=== PATIENT | male | born 1955 ===

== ENCOUNTER 2017-04-15 03:42 | Inpatient (IN) ==
--- NOTE | 2017-04-15 05:21 | Internal Med History&Physical ---
Date of Encounter: 04/15/17 Time of Encounter: 05:21 Assessment and Plan (1) NSTEMI (non-ST elevated myocardial infarction) Current visit: Yes Status: Acute Cardiology consulted and called Aspirin 324 given Brilinta 180 mg loaded On Heparin drip Cp resolved now after 2 SL NG and nitro paste NPO Continue trending Troponins Initial troponin 0.44 with normal renal function and no CHF Code(s): I21.4 - Non-ST elevation (NSTEMI) myocardial infarction (2) Diabetes mellitus Current visit: Yes Status: Acute Hold oral anti-hyperglycemics While NPO AccuChecks q6 hrs and SSI Humalog (low scale) Check A1c Qualifiers: Diabetes mellitus type: type 2 Diabetes mellitus complication status: with unspecified complications Diabetes mellitus alf insulin use: without termite exterminator use Qualified Code(s): E11.8 - Type 2 diabetes mellitus with unspecified complications (3) Essential (primary) hypertension Current visit: No Status: Chronic Continue Norvasc and Metoprolol Add PRN Hydralazine Code(s): I10 - Essential (primary) hypertension (4) Obesity Current visit: No Status: Chronic Weight loss diet after d/c Qualifiers: Obesity type: due to excess calories Obesity classification: unspecified obesity classification Serious obesity comorbidity presence: with serious comorbidity Qualified Code(s): E66.09 - Other obesity due to excess calories Internal Medicine - H&P: HPI Chief complaint: NSTEMI Admitted From: Intrahospital Transfer Plans for Post Hospital Care: Home History of present illness: The patient is a 61 year old man who presented in the ED at [facility] late yesterday evening c/o 9/10 sharp chest pain radiating to his left shoulder and arm associated with sob, diaphoresis and nausea. His initial troponin was elevated (0.44) and his ECG showed nonspecific ST changes. The symptoms began while at rest and were not relieved until given 2 SL NG and nitropaste was applied. The chest pain was constant in nature. He had been experiencing cp for several day occurring with minimal exertion and resolving after several minutes. The symptoms tonight were much more intense and persisted until given NG. He had a 4v-CABG in [place] in 2012 with no subsequent events or f/u care. He takes aspirin, Lipitor and Metoprolol daily. He received 324 mg of aspirin and was started on a Heparin drip prior to transfer to [facility] His ECG upon arrival shows TWI in leads I,V4-V6 without ST elevation. His second troponin is in lab. He remains diaphoretic but his cp is resolved with nitro paste. His comorbid medical conditions include DM-2, obesity and HTN. He remains hemodynamically stable. I've spoken with Dr. Pham and she recommends loading 180 mg of Brillinta. We appreciate cardiology assistance and they will see him today. Past Med Surg Social Fam HX - Past Medical History Medical history: diabetes, hyperlipidemia, hypertension, kidney stones Psychiatric history: depression - Past Surgical History Surgical History: coronary bypass (CABG) - Social History Smoking Status: Never smoker Smokeless Tobacco Status: No Alcohol use: none Drug use: none - Family History Mother Name: Loc Age: 84 Living Status: Still Living Hx Family Cardiac Disorders: Yes (open heart sx) Hx Family Respiratory Disorders: Yes (copd) Hx Family Cancer: Yes (lung ca) Hx Family Endocrine Disorder: No Internal Medicine - H&P: Meds Aspirin 325 mg PO QMWFSU 04/15/17 [History] Atorvastatin Calcium [Lipitor] 20 mg PO DAILY 04/15/17 [History] Citalopram 20 mg PO DAILY 04/15/17 [History] GlipiZIDE 10 mg PO DAILY 04/15/17 [History] Losartan Potassium [Cozaar] 50 mg PO DAILY 04/15/17 [History] Metoprolol 50 mg PO DAILY 04/15/17 [History] Multivitamin 1 tab PO DAILY 04/15/17 [History] amLODIPine [Norvasc] 10 mg PO DAILY 04/15/17 [History] metFORMIN 500 mg PO BID 04/15/17 [History] 3 Allergy/AdvReac Type Severity Reaction Status Date / Time No Known Allergies Allergy Verified 04/15/17 05:36 All Systems PM: A 10-system review of systems was performed and is negative for pertinent findings except as documented above in the HPI. - Constitutional Constitutional: no chills, no fever(s), no falls, no night sweats, no weight gain, no weight loss - EENT Eyes: no change in vision, no irritation, no itchy eyes, no photophobia, no spots in vision Nose, mouth and throat: no bleeding gums, no dry mouth, no dysphagia, no epistaxis, no mouth lesions, no nasal congestion, no nasal discharge, no sore throat - Cardiovascular Cardiovascular ROS IM: chest pain, diaphoresis, dyspnea, no edema, no irregular heart rhythm, no lightheadedness, no palpitations, no syncope - Respiratory Respiratory: dyspnea, no cough, no hemoptysis, no stridor - Gastrointestinal Gastrointestinal: no hematemesis, no hematochezia, no melena, no nausea - Musculoskeletal Musculoskeletal ROS IM: no arthralgias, no back pain, no muscle cramps, no numbness, no stiffness - Neurological Neurological ROS: headache(s), no behavioral changes, no confusion, no dizziness - Psychiatric Psychiatric: no hallucinations, no memory loss, no suicidal ideation - Constitutional Vitals: Temp Pulse Resp BP Pulse Ox 98.0 F 70 17 146/108 95 04/15/17 04:46 04/15/17 04:46 04/15/17 04:46 04/15/17 04:46 04/15/17 05:14 General appearance: Present: mild distress, A&O X 3, pleasant, answers questions appropriately - Head Head exam: Present: atraumatic, normocephalic - Eye Eye exam: Present: PERRL, conjuntiva pink, sclera anicteric Pupils: Present: PERRL - Neck Neck exam general surgery: Present: supple, trachea midline. Absent: lymphadenopathy, tenderness, thyromegaly - Respiratory Respiratory exam: Present: CTAB. Absent: accessory muscle use, rales, rhonchi, wheezes - Cardiovascular Cardiovascular exam: Present: RRR, +S1, +S2. Absent: diastolic murmur, gallop, rubs, systolic murmur - GI/Abdominal GI/Abdominal exam: Present: normal bowel sounds, soft, no peritoneal signs. Absent: distended, tenderness - Extremities Exam Extremities exam: Present: warm, radial pulses palpable and symmetrical. Absent : calf tenderness, cyanotic, pedal edema - Neurological Exam Neurological exam: Present: CN II-XII intact, oriented X3, no focal deficits. Absent: pronater drift, facial droop, speech deficit - Psychiatric Psychiatric exam: Present: normal affect, normal mood - Skin Skin exam: Present: diaphoretic, dry, intact. Absent: rash Internal Med - H&P Results - Labs CBC & Chem 7: 04/15/17 05:43
[2017-04-15] MEDS ORDERED: *HR* Heparin 5,000 UNIT/ML VIAL IVP PRN ×2 (06:11)
[2017-04-15 06:12] LABS: INR 1.1; Prothrombin Time 12.3 Seconds (9.4-12.1)
[2017-04-15 06:16] LABS: Basophils % 0.3 %; Eosinophils # 0.1 K/mcL (0.0-0.6); Eosinophils % 1.4 %; Hematocrit 40.7 % (37.5-50.1); Hemoglobin 13.9 g/dL (12.9-16.9); Immature Granulocytes % 0.5 % (0-4); Lymphocytes # 1.4 K/mcL (0.6-4.6); Lymphocytes % 21.7 %; Mean Corpuscular HGB Conc 34.2 g/dL (31.6-35.5); Mean Corpuscular Hemoglobin 27.5 pg (28.0-33.3); Mean Corpuscular Volume 80.4 fL (83.0-100.0); Mean Platelet Volume 10.9 fL (9.4-12.4); Monocytes # 0.6 K/mcL (0.0-1.3); Monocytes % 8.6 %; Neutrophils # 4.3 K/mcL (1.6-8.9); Platelet Count 154 K/mcL (140-400); Red Blood Count 5.06 M/mcL (4.19-5.50); Red Cell Distribution Width 12.1 % (11.5-14.5); Segmented Neutrophils % 67.5 %
[2017-04-15] MEDS ORDERED: *HR* Ticagrelor 90 MG TABLET PO ONE (06:30)
[2017-04-15] MEDS: Heparin 25,000 UNIT/500 ML D5W 25,000 UNIT/500 ML BAG IVC SCH ×2 (06:30→23:06)
[2017-04-15] MEDS ORDERED: D5% in Water 1,000 ML IVC PRN (06:32)
[2017-04-15] MEDS ORDERED: *HR* Dextrose 50 % in Water (Syg) 50 ML SYRINGE IVP PRN (06:32)
[2017-04-15] MEDS ORDERED: Dextrose Gel 15 GM/37.5 ML TUBE PO PRN ×2 (06:32)
[2017-04-15 06:36] LABS: BUN/Creatinine Ratio 18 (6-26); Blood Urea Nitrogen 14 mg/dL (8-23); Calcium 8.8 mg/dL (8.6-10.3); Carbon Dioxide 23 mEq/L (23-29); Chloride 105 mEq/L (98-107); Glucose 241 mg/dL (70-105); Osmolality,Calculated 290 (280-300); Potassium 3.8 mEq/L (3.5-5.1); Sodium 136 mEq/L (136-145); eGFR For African Americans > 60 (> 60); eGFR For Non-African Americans > 60 (> 60)
[2017-04-15 06:57] LABS: Hemoglobin A1C 7.8 %
[2017-04-15 07:00] LABS: Chol/HDL Ratio 6.8 (0-4.9)
[2017-04-15] MEDS ORDERED: Acetaminophen 325 MG TABLET PO PRN (07:53)
[2017-04-15] MEDS: Multivit/Ca/Min/Fe/FA 1 TAB TABLET PO SCH (08:14)
[2017-04-15] MEDS: amLODIPine 5 MG TABLET PO SCH (08:15)
[2017-04-15] MEDS: Aspirin 81 MG TAB.CHEW PO SCH (08:15)
[2017-04-15] MEDS: Insulin LISPRO 300 UNITS/3 ML VIAL SQ SCH ×4 (09:18→21:20)
--- NOTE | 2017-04-15 09:32 | Cardiology Consult Note ---
Date of Encounter: 04/15/17 Time of Encounter: 08:15 Assessment and Plan (1) NSTEMI (non-ST elevated myocardial infarction) Current Visit: Yes Status: Acute Symptoms consistent with unstable angina/nonSTEMI. Currently stable with no recurrent angina. Continue aspirin, Brilinta, beta blockade, heparin gtt, nitrates. Will plan on cardiac catheterization tomorrow AM unless clinical status changes. Discussed cardiac catheterization and possible PCI with patient and . All risks/benefits discussed. All questions answered. Pt agreeable to proceed. (2) Coronary artery disease Current Visit: Yes Status: Acute Risk factor modification. Plan for [facility] tomorrow AM. Qualifiers: Coronary Disease-Associated Artery/Lesion type: [place] artery [place] vs. transplanted heart: [place] heart Associated angina: with other forms of angina Qualified Code(s): I25.118 - Atherosclerotic heart disease of [place] coronary artery with other forms of angina pectoris (3) S/P CABG (coronary artery bypass graft) Current Visit: Yes Status: Chronic (4) Hyperlipidemia Current Visit: Yes Status: Chronic Statin therapy. Qualifiers: Hyperlipidemia type: unspecified Qualified Code(s): E78.5 - Hyperlipidemia , unspecified (5) Essential (primary) hypertension Current Visit: Yes Status: Chronic Uncontrolled. Will titrate antihypertensives. Discussion w patient/family: The assessment and plan as outlined above was discussed with the patient and/or family members who expressed understanding and agreement. All questions were answered. Thank you for involving us in the care of your patient. Please call with any questions. History of Present Illness Consult date: 04/15/17 Consult reason: nonSTEMI Chief complaint: chest pain History of present illness: Mr. Jarvis is a 61 year old male with CAD s/p CABG x 4 2012, HTN, DM, hyperlipidemia presents as transfer from [facility] ED for evaluation of CP. For past week, pt has been having intermittent chest discomfort. Danial evening, symptoms worsened but resolved after few minutes. Yesterday, chest discomfort markedly worsened and radiated to L arm/neck/jaw. Associated with nausea, diaphoresis. No SOB. Checked BP and noted SBP in 200s. Went to local fire station and repeat BP in 200s. Was taken by EMS to [facility]. Initial troponin at [facility] 0.44. EKG reportedly with nonspecific changes- not available for my review at time of consult. Was transferred to [facility] for further evaluation/ treatment. Currently denies CP, SOB, nausea, diaphoresis. Has headache from [facility]. EKG demonstrates NSR with ST-T wave changes in anterolateral leads. Pt has known history of CABG x 4 in 2013 at [facility]. No records available for my review. Pt states prior to CABG symptom was dyspnea, no CP. No cardiac testing since CABG in 2013. 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 Past Med Surg Social Fam HX - Past Medical History Medical history: coronary artery disease, diabetes, hyperlipidemia, hypertension , kidney stones Psychiatric history: depression - Past Surgical History Surgical History: coronary bypass (CABG) - Social History Smoking Status: Never smoker Smokeless Tobacco Status: No Alcohol use: none Drug use: none - Family History Mother Name: Loc Age: 84 Living Status: Still Living Hx Family Cardiac Disorders: Yes (CAD s/p CABG in 70s) Hx Family Respiratory Disorders: Yes (copd) Hx Family Cancer: Yes (lung ca) Hx Family Endocrine Disorder: No Father Living Status: Age at : 60 Cause of : [place] Medications and Allergies Aspirin 325 mg PO QMWFSU 04/15/17 [History] Atorvastatin Calcium [Lipitor] 20 mg PO DAILY 04/15/17 [History] Citalopram 20 mg PO DAILY 04/15/17 [History] GlipiZIDE 10 mg PO DAILY 04/15/17 [History] Losartan Potassium [Cozaar] 50 mg PO DAILY 04/15/17 [History] Metoprolol 50 mg PO DAILY 04/15/17 [History] Multivitamin 1 tab PO DAILY 04/15/17 [History] amLODIPine [Norvasc] 10 mg PO DAILY 04/15/17 [History] metFORMIN 500 mg PO BID 04/15/17 [History] 3 Allergy/AdvReac Type Severity Reaction Status Date / Time No Known Allergies Allergy Verified 04/15/17 05:36 All Systems Review: The remainder of the systems were reviewed and are negative - Cardiovascular Cardiovascular: as per HPI Physical Examination Vital Signs, Last 4 Hours Temp Pulse Resp BP Pulse Ox 04/15/17 07:13 97.4 F L 57 16 161/93 98 General: Conversant, No Apparent Distress HEENT: Atraumatic, Normocephaly, Mucus Membranes Moist Neck: No JVD, Normal carotid pulses Cardiac: Reg Rate and Rhythm, Normal S1 and S2, No Murmur Lungs: Normal Breath Sounds, No Wheeze, Rales, Rhonchi Neuro: Alert and responsive, No focal deficits noted Abdomen: Soft, Non-Tender Skin: No rashes noted on visualized skin, Other (well healed midline sternotomy incision) Musculoskeletal: No Chest Wall Tenderness Extremities: No Clubbing, No Cyanosis, No Edema, Normal Pulses Results 04/15/17 05:43 04/15/17 05:43 Lab Results 04/15/17 04/15/17 04/15/17 05:43 05:43 05:43 WBC 6.4 Hgb 13.9 Hct 40.7 Plt Count 154 INR 1.1 APTT Sodium 136 Potassium 3.8 Chloride 105 Carbon Dioxide 23 BUN 14 Creatinine 0.77 Glucose 241 H Calcium 8.8 Troponin I 04/15/17 04/15/17 05:43 08:39 WBC Hgb Hct Plt Count INR APTT 39.5 H Sodium Potassium Chloride Carbon Dioxide BUN Creatinine Glucose Calcium Troponin I 0.34 H* Consult Discharge Plan - Plan Referrals: NONE,PCP [Primary Care Provider] - [place] [Family Provider] -
--- NOTE | 2017-04-15 11:34 | Event Note ---
Date of Encounter: 04/15/17 Time of Encounter: 11:32 Seen and evaluated tat bedside with his spouse. He is hx of HTN, DM< CAD s/p CABG admitted and being managed for NSTEMI Patient denies any chest pain at this time, has headaches possibly from the nitro paste He is hemodynamicaaly stable Physical exam unremarkable continue heparin For LHC a.m , NPO from [place]
[2017-04-15] MEDS ORDERED: Insulin LISPRO 300 UNITS/3 ML VIAL SQ SCH (12:00)
[2017-04-16 05:09] LABS: BUN/Creatinine Ratio 15 (6-26); Blood Urea Nitrogen 12 mg/dL (8-23); Calcium 9.1 mg/dL (8.6-10.3); Carbon Dioxide 25 mEq/L (23-29); Chloride 106 mEq/L (98-107); Glucose 228 mg/dL (70-105); Osmolality,Calculated 289 (280-300); Potassium 3.7 mEq/L (3.5-5.1); Sodium 136 mEq/L (136-145); eGFR For African Americans > 60 (> 60); eGFR For Non-African Americans > 60 (> 60)
[2017-04-16 05:10] LABS: Chol/HDL Ratio 6.6 (0-4.9)
[2017-04-16 05:31] LABS: Activated Partial Thrombo Time 68.6 Seconds (26.0-36.0); INR 1.2; Prothrombin Time 12.6 Seconds (9.4-12.1)
[2017-04-16 05:56] LABS: Basophils % 0.6 %; Eosinophils # 0.2 K/mcL (0.0-0.6); Eosinophils % 3.2 %; Hematocrit 41.8 % (37.5-50.1); Hemoglobin 14.3 g/dL (12.9-16.9); Immature Granulocytes % 0.5 % (0-4); Lymphocytes # 1.3 K/mcL (0.6-4.6); Lymphocytes % 19.1 %; Mean Corpuscular HGB Conc 34.2 g/dL (31.6-35.5); Mean Corpuscular Hemoglobin 27.9 pg (28.0-33.3); Mean Corpuscular Volume 81.6 fL (83.0-100.0); Mean Platelet Volume 11.2 fL (9.4-12.4); Monocytes # 0.5 K/mcL (0.0-1.3); Monocytes % 8.2 %; Neutrophils # 4.5 K/mcL (1.6-8.9); Platelet Count 157 K/mcL (140-400); Red Blood Count 5.12 M/mcL (4.19-5.50); Red Cell Distribution Width 12.1 % (11.5-14.5); Segmented Neutrophils % 68.4 %
[2017-04-16] MEDS ORDERED: 0.9 % Sodium Chloride 1,000 ML ONE ×2 (07:39→09:29)
[2017-04-16] MEDS ORDERED: Heparin 1,000 UNITS/500 mL 500 ML ONE (07:39)
[2017-04-16] MEDS ORDERED: Nitroglycerin 1,000 MCG/10 ML VIAL IV ONE (07:40)
[2017-04-16] MEDS ORDERED: *HR* Heparin 10,000 UNIT/10 ML VIAL ONE (07:40)
[2017-04-16] MEDS ORDERED: ISOVUE-370 200 ML INFUS..BTL IV ONE ×2 (07:40→10:05)
[2017-04-16] MEDS: Insulin LISPRO 300 UNITS/3 ML VIAL SQ SCH ×3 (08:08→17:02)
[2017-04-16] MEDS: amLODIPine 5 MG TABLET PO SCH (08:10)
[2017-04-16] MEDS: *HR* Ticagrelor 90 MG TABLET PO SCH ×2 (08:10→20:43)
[2017-04-16] MEDS: Multivit/Ca/Min/Fe/FA 1 TAB TABLET PO SCH (08:10)
[2017-04-16] MEDS: Aspirin 81 MG TAB.CHEW PO SCH (08:10)
[2017-04-16] MEDS ORDERED: *HR* Midazolam HCl 2 MG/2 ML VIAL ONE (09:49)
--- NOTE | 2017-04-16 09:49 | Pre-Sedation Evaluation ---
Pre-sedation evaluation - Pre-sedation checklist Date of procedure: 04/16/17 Procedure: heart cath Recent Vitals: Last Vital Signs Temp 98.1 F 04/16/17 06:54 Pulse 61 04/16/17 06:54 Resp 18 04/16/17 06:54 BP 170/99 04/16/17 06:54 Pulse Ox 94 04/16/17 06:54 H&P (including ROS) documented in medical record: Yes Previous reaction to sedatives/anesthetics: No Dietary Status: NPO after Midnight Airway Assessment: Patient can open mouth completely, TMJ function normal Dentition: dentures removed Possible difficult airway: No ASA Classification *see protocol: CLASS IV-Severe systemic disease/constant threat to pt's life Plan of Care: Pt appropriate candidate for procedure/moderate/conscious sedation , Risks/benefits of procedure/sedation discussed w/ patient/family, If not NPO; Risk of intake outweiged by necessity to perform procedure
[2017-04-16] MEDS ORDERED: *HR* Bivalirudin 250 MG VIAL IVC ONE (10:05)
[2017-04-16] MEDS ORDERED: 0.9 % Sodium Chloride 1,000 ML IVC SCH (11:00)
--- NOTE | 2017-04-16 11:16 | Invasive Diagnostic Lab Proc ---
Name: Umberto Jarvis Date of Study: 04/16/2017 Date: 1955 Ht: 68.9in Medical Record#: [id number] Age: 61 Wt: 213.85lb Gender: Male BSA: 2.12 Order #: [id number] BMI: 31.67 Physicians Procedure Physician: Lopez Wallace DO Referring MD: Referring MD: Staff Name Position Time In Shira Atwood RN Monitor 09:53 AM Nirali Pratt RN Load Mixer 09:53 AM Alessandra Shaw RT (R) Scrub 09:53 AM Indications Indication Non-Stemi Procedures Performed Procedure L HRT ART/GRFT ANGIO PRQ CARD RAMÍREZ STENT W/ANGIO 1 VSL Pre-Procedure Checklist Informed consent is complete signed and on chart. H&P is on chart. ID band is on and ID verified with patient. Patient NPO for procedure The procedure was described for the patient and questions were answered. Blood Pressure: 170/99 ECG is on chart. Plan of Care Patient will tolerate the procedure without complications. Adequate level of comfort will be maintained. Hemodynamics will remain stable Patient will recover from procedure without complications. Respiratory function will be maintained. Cardiac rhythm will remain stable. Patient temperature will be maintained. Patient and/or family have verbalized understanding of the procedure. Patient Education Chief Complaint/Reason for Test: Cardiac Cath Developmental Category: Adult (18-64 years) Developmentally Appropriate for Age: Yes Learning Barriers: None Education Needs: Procedure Education Method: Verbal Information Taught: Cardiac Cath Educational Evaluation: Able to repeat information Intravenous Access Time IV Size Location DC'd Fluid/Drip Rate Units RN 07:55 AM 18g 1 02/22" Patent On Arrival Rt Wrist 0.9NaCl 25 ml/hr Nirali Pratt RN Allergies No Known Allergies Vital Signs Time BP (mmHg) HR (bpm) O2 Sat. RR (bpm) LOC 07:55 AM 170 / 99 61 94 % 18 5 = Fully awake and oriented or at pre-proc level 09:28 AM / % 5 = Fully awake and oriented or at pre-proc level 09:28 AM / % 4 = Oriented but drowsy 09:52 AM / % 4 = Oriented but drowsy 10:07 AM / % 4 = Oriented but drowsy 10:22 AM / % 4 = Oriented but drowsy 10:38 AM / % 4 = Oriented but drowsy 09:48 AM 157 / 97 53 92 % 17 09:52 AM 148 / 97 64 92 % 20 09:57 AM 144 / 89 62 91 % 18 10:02 AM 136 / 90 55 93 % 16 10:07 AM 148 / 95 63 94 % 15 10:12 AM 147 / 90 62 93 % 15 10:17 AM 153 / 98 63 92 % 16 10:22 AM 157 / 89 65 93 % 13 10:27 AM 150 / 96 65 93 % 16 10:32 AM 157 / 103 69 92 % 18 10:37 AM 161 / 104 66 94 % 20 10:42 AM 144 / 99 66 91 % 15 10:47 AM 146 / 89 65 93 % 21 Procedural Medications Time Medication Dose Units Method Given By 09:52 AM Versed 2 mg Intravenous Nirali Pratt RN 09:53 AM Oxygen 2 L/min nasal cannula Nirali Pratt RN 10:00 AM Lidocaine 2% 10 ml Subcutaneous Lopez Wallace DO 10:20 AM Heparin 3000 units Intravenous Nirali Pratt RN 10:30 AM Nitroglycerin 100 mcg Intracoronary Lopez Wallace DO 10:39 AM Nitroglycerin 200 mcg Intracoronary Lopez Wallace DO ASA Classification: CLASS IV- Severe systemic that is constant threat to patient's life Traci Score Preprocedure Postprocedure Activity 2- Moves 4 extremities sustained head lift Activity Circulation 2- SBP +/= 20 points of pre-anesthetic level Circulation Consciousness 2- Awake and alert oriented x 3 Consciousness O2 Saturation 2- Able to maintain O2 satruation of 92% on room air O2 Saturation Respiratory 2- Able to deep breathe and cough well Respiratory Total Score 10 Total Score Contrast Agent: Isovue Diagnostic Contrast: 140 ml Total Contrast: 140 ml Fluoro Dose: 1044 mGy Activated Clotting Time Time Seconds to Clot 10:20 AM 134 10:31 AM 400 Procedure Log Time Note Enter By 09:28 AM Pt arrived to general labor 2 at 09:28 scoates 09:28 AM Mindi paged/called :. scoates 09:28 AM Mindi responded and notified patient is ready :28 scoates 09:28 AM Time: :28 Patient comfortable and pain free: Yes scoates 09:28 AM Time: :LOC: 5 = Fully awake and oriented or at pre-proc level scoates 09:28 AM Clinical Presentation: Non-STEMI scoates 09:32 AM CathStat 09:42 AM Physician arrived 09:42 scoates 09:42 AM Meet and greet completed scoates 09:42 AM Sign in performed according to hospital policy. scoates 09:43 AM Procedure start 09:43 scoates 09:47 AM Vitals capture started with the following parameters, Patient=Adult, Interval=5 min, Initial Smctrplf=869 mmHg, Deflation Rate=5 mmHg, Cuff placed on Right Arm 09:48 AM HR=53 bpm, JZHU=308/97 mmhg, SpO2=92.0 %, Resp=17 B/min, Comment=sr 09:52 AM Time: :28LOC: 4 = Oriented but drowsy scoates 09:52 AM Time: : Patient comfortable and pain free: Yes scoates 09:52 AM HR=64 bpm, PQIN=851/97 mmhg, SpO2=92.0 %, Resp=20 B/min, Comment=sr 09:52 AM Time: : Versed 2 mg Intravenous Given by Nirali Pratt RN scoates 09:53 AM Patient charges- Angio tray pack, Navilyst 3mm J, Pulse Oximetry and ACIST tubing and transducer scoates 09:53 AM Case Delayed no, inpatient scoates 09:53 AM Hair removed from procedure site in procedure lab using clippers. Bilateral groin prepped with Chloraprep by Nirali Pratt RN, then patient was draped. Skin intact. scoates 09:53 AM Shira Atwood RN Position: Monitor Time in: 09:53 scoates 09:53 AM Nirali Pratt RN Position: Load Mixer Time in: 09:53 scoates 09:53 AM Alessandra Shaw RT (R) Position: Scrub Time in: 09:53 scoates 09:53 AM Time: 09:53 Oxygen on at 2 L/min per nasal cannula by Nirali Pratt RN scoates 09:54 AM Recorded ECG: HR=67 Condition=Condition 1 09:55 AM Pressure channel 2 zeroed. 09:55 AM ASA Class CLASS IV- Severe systemic that is constant threat to patient's life scoates 09:57 AM HR=62 bpm, UWDL=813/89 mmhg, SpO2=91.0 %, Resp=18 B/min, Comment=sr 09:59 AM Time out performed according to hospital policy scoates 10:00 AM Time: 10:00 10 ml Lidocaine 2% to right groin Subcutaneous Given by Lopez Wallace DO scoates 10:01 AM Micro-Introducer Kit utilized for sheath placement scoates 10:01 AM Access obtained by percutaneous puncture. 6Fr 10cm Terumo Ethel sheath placed in right Femoral artery. [id number] scoates 10:01 AM 6Fr FR 4 catheter inserted over the wire [facility] scoates 10:02 AM Catheter selectively placed in left ventricle scoates 10:02 AM HR=55 bpm, RRRF=345/90 mmhg, SpO2=93.0 %, Resp=16 B/min, Comment=sr 10:03 AM Bolus angiogram of left Ventricle complete: hand injected for a total of 10 mls scoates 10:03 AM Recorded Pressure: LV, HR=60, Condition=Condition 1 (Left Ventricle) LV 143/0/6 10:04 AM catheter repostioned scoates 10:04 AM Recorded Pressure: LV, Ao, HR=64, Condition=Condition 1 (Left Ventricle) LV 142/13/0, (Aorta) Ao 148/41/98 10:04 AM Recorded Pressure: Ao, HR=60, Condition=Condition 1 (Aorta) Ao 126/78/100 10:05 AM SVG to the 1st OM angio performed in multiple views. scoates 10:05 AM catheter repostioned scoates 10:06 AM RCA angiography performed in multiple views. scoates 10:06 AM Recorded Pressure: Ao, HR=59, Condition=Condition 1 (Aorta) Ao 135/78/102 10:06 AM catheter being repositioned at this time scoates 10:07 AM Time: 09:52 Patient comfortable and pain free: Yes scoates 10:07 AM Time: 09:52LOC: 4 = Oriented but drowsy scoates 10:07 AM HR=63 bpm, XIMG=021/95 mmhg, SpO2=94.0 %, Resp=15 B/min, Comment=sr 10:10 AM Left AMOR to the LAD angio performed in multiple views. scoates 10:10 AM Catheter removed scoates 10:11 AM 5Fr FL 4 catheter inserted over the wire [facility] scoates 10:11 AM Recorded Pressure: Ao, HR=63, Condition=Condition 1 (Aorta) Ao 145/79/106 10:12 AM LCA angiography performed in multiple views. scoates 10:12 AM HR=62 bpm, FNJS=282/90 mmhg, SpO2=93.0 %, Resp=15 B/min, Comment=sr 10:15 AM Recorded Pressure: Ao, HR=63, Condition=Condition 1 (Aorta) Ao 143/87/112 10:17 AM PCI Status Urgent scoates 10:17 AM Inflation device was opened. scoates 10:17 AM 6Fr XBlad3.5 [place] Bright-Tip guide catheter was used to cannulate the PCI vessel successfully. reused? No scoates 10:17 AM HR=63 bpm, OLYU=360/98 mmhg, SpO2=92.0 %, Resp=16 B/min, Comment=sr 10:19 AM .014 amplatz 260cm guide wire across target lesion- successful. reused? No scoates 10:20 AM At 10:20 the ACT was 134 seconds. scoates 10:20 AM Time: 10:20 Heparin 3000 units Intravenous Given by Nirali Pratt RN scoates 10:21 AM Guide wire removed intact. scoates 10:22 AM HR=65 bpm, VMHM=996/89 mmhg, SpO2=93.0 %, Resp=13 B/min, Comment=sr 10:22 AM Time: 10:07LOC: 4 = Oriented but drowsy scoates 10:23 AM Time: 10:07 Patient comfortable and pain free: Yes scoates 10:23 AM Lesion found in Mid LAD. Pre Stenosis: 99 Pre RITCHIE Flow: scoates 10:23 AM Lesion found in Proximal RCA. Pre Stenosis: 100 Pre RITCHIE Flow: scoates 10:24 AM Lesion found in Proximal Circumflex. Pre Stenosis: 99 Pre RITCHIE Flow: 2: Partial Flow/Perfusion (> 1 but < 3) scoates 10:24 AM Lesion found in 1st Marginal. Pre Stenosis: 99 Pre RITCHIE Flow: scoates 10:24 AM 2.0 mm x 15 mm Emerge Monorail balloon across target lesion- successful. reused? No scoates 10: AM Balloon inflated @ 12 george for 25 seconds scoates 10:27 AM Recorded Pressure: Ao, HR=64, Condition=Condition 1 (Aorta) Ao 153/93/119 10:27 AM Act drawn and running scoates 10:27 AM Balloon inflated @ 12 george for 19 seconds scoates 10:27 AM HR=65 bpm, LHGI=421/96 mmhg, SpO2=93.0 %, Resp=16 B/min, Comment=sr 10:28 AM Balloon inflated @ 12 george for 18 seconds scoates 10:29 AM Balloon inflated @ 14 george for 16 seconds scoates 10:30 AM Balloon catheter removed intact. scoates 10:31 AM Time: 10:30 Nitroglycerin 100 mcg Intracoronary Given by Lopez Wallace DO scoates 10:31 AM At 10:31 the ACT was greater than 400 seconds. scoates 10:32 AM HR=69 bpm, KJLU=642/103 mmhg, SpO2=92.0 %, Resp=18 B/min, Comment=sr 10:32 AM Recorded Pressure: Ao, HR=70, Condition=Condition 1 (Aorta) Ao 156/100/123 10:33 AM 2.25mm x 124mm Synergy drug-eluting stent across target lesion- successful Lot #[id number] scoates 10:35 AM Stent deployed @ 16 george for 27 seconds scoates 10:36 AM Stent delivery system removed intact. scoates 10:36 AM 2.25mm x 20mm Synergy drug-eluting stent across target lesion- successful Lot #[id number] scoates 10:37 AM HR=66 bpm, ALNO=366/104 mmhg, SpO2=94.0 %, Resp=20 B/min, Comment=sr 10:38 AM Time: 10:23 Patient comfortable and pain free: Yes scoates 10:38 AM Time: 10:22LOC: 4 = Oriented but drowsy scoates 10:38 AM Stent deployed @ 16 george for 15 seconds scoates 10:38 AM Coronary Dominance: right scoates 10:38 AM Stent balloon reinflated @ 18 george for 12 seconds scoates 10:40 AM Time: 10:39 Nitroglycerin 200 mcg Intracoronary Given by Lopez Wallace DO scoates 10:40 AM Stent delivery system removed intact. scoates 10:41 AM Guide wire removed intact. scoates 10:42 AM HR=66 bpm, IFYI=178/99 mmhg, SpO2=91.0 %, Resp=15 B/min, Comment=sr 10:42 AM Recorded Pressure: Ao, HR=68, Condition=Condition 1 (Aorta) Ao 144/92/113 10:44 AM Guide catheter removed intact. scoates 10:45 AM Procedure completed at 10:45 scoates 10:45 AM Did you address RITCHIE flow and Dominance? Yes scoates 10:46 AM Sign out completed: Radiation Dose 1044 mGy Fluoro Time: 12.2 Isovue 370 - 200ml contrast 140 ml given by Lopez Wallace DO. Complications: NoneCardiac Rehab Consult needed: YesConfirmed administered medications: Yes scoates 10:47 AM HR=65 bpm, NLGM=990/89 mmhg, SpO2=93.0 %, Resp=21 B/min, Comment=sr 10:50 AM Mid/Distal Left Anterior Descending Coronary Artery and diagonal branches with 99% stenosis. If graft is supplying this area, 0 % stenosis scoates 10:50 AM Circumflex, Obtuse Marginal, Left Posterior Descending, and Left Posterolateral Coronary Arteries with 99 % stenosis. If graft is supplying this area, 99 % stenosis scoates 10:50 AM Right Coronary, Right Posterior Descending Arteries with Right Posterolateral and Acute Marginal branches with 100 % stenosis. If graft is supplying this area, 100 % stenosis scoates 10:51 AM Arterial sheath pulled, Angio-seal closure device used and was Successful [id number] S/N. scoates 10:54 AM Time: 10:38LOC: 4 = Oriented but drowsy scoates 10:54 AM Time: 10:38 Patient comfortable and pain free: Yes scoates 10:55 AM Estimated Blood Loss: less than 20cc scoates 10:55 AM Post ECG NSR scoates 10:56 AM Post Blood Pressure 146/89 scoates 10:56 AM 10:56 Post Pulses Bilateral DP & PT 1+ scoates 10:56 AM Information taught Cardiac Cath, PCI, and Angioseal scoates 10:56 AM Education needs Procedure, Plan of Care, and Responsibilities of Patient in Care scoates 10:56 AM Learning barriers :None scoates 10:56 AM Education Methods Verbal scoates 10:56 AM Education evaluation Able to repeat information scoates 10:56 AM Site status No bleeding/hematoma - Rt Groin as reported by Alessandra Shaw RT (R) at 10:56 scoates 10:56 AM Opsite applied scoates 11:00 AM Opsite applied scoates 11:00 AM Report given to Martín GUPTA Pt taken to 2NE Room #20. 11:00 scoates 11:00 AM Plavix, Effient or Brilinta given No, patient already took brilinta this AM on the floor scoates 11:00 AM Patient out of room: 11:00 scoates 11:00 AM Family placed in consult room. scoates 11:00 AM Complications: None scoates 11:00 AM Fluoro Time: 12.2 scoates 11:00 AM Isovue 370 - 200ml contrast 140 ml given by Lopez Wallace DO. scoates 11:00 AM Radiation Dose 1044 mGy scoates Complications Complication None None Hemodynamics Pressures Site Systolic/A Wave Diastolic/V Wave Mean LV 143 0 6 LV 142 13 0 AO 148 41 98 AO 126 78 100 AO 135 78 102 AO 145 79 106 AO 143 87 112 AO 153 93 119 AO 156 100 123 AO 144 92 113 Post Procedure Information Blood Pressure: 146/89 mmHg Rhythm: NSR Post procedural instructions were given Closure Device Time Device Success/Fail 04/16/2017 11:00:00 AM Angio-seal Evolution Successful Site Checks Time Location Status Staff Sheath In? Note 10:56 AM Rt Groin No bleeding/hematoma Alessandra Shaw RT (R) Pulses Time Site Pre-Procedure Post-Procedure Note 04/16/2017 7:55:00 AM Bilateral DP & PT 2+ 04/16/2017 7:55:00 AM Bilateral radial 2+ 10:56:00 AM Bilateral DP & PT 1+ Updated by Shira Lopez RN on 04/16/2017 11:06:37 AM electronically signed on 04/16/2017 11:08:18 AM with status of Final
--- NOTE | 2017-04-16 12:15 | Internal Med Progress Note ---
Date of Encounter: 04/16/17 Time of Encounter: 12:14 - Assessment and plan (1) NSTEMI (non-ST elevated myocardial infarction) Current Visit: Yes Status: Acute Assessment and plan: s/p [facility] Discontinue heparin Continue ASA, BB, Brilinta, ARB, Increase lipitor to 40mg HS ECHO with preserve EF (2) Diabetes mellitus Current Visit: Yes Status: Chronic Assessment and plan: Uncontrolled Continue LEvemir 5 units HS, sliding scale insulin and diabetic diet. FSACHS Qualifiers: Diabetes mellitus type: type 2 Diabetes mellitus complication status: with unspecified complications Diabetes mellitus continuous churn buttermaker insulin use: without snf use Qualified Code(s): E11.8 - Type 2 diabetes mellitus with unspecified complications (3) Essential (primary) hypertension Current Visit: Yes Status: Chronic Assessment and plan: controlled D/C IVF continue current meds (4) Obesity Current Visit: Yes Status: Chronic Assessment and plan: education on lifestyle modification provided Qualifiers: Obesity type: due to excess calories Obesity classification: unspecified obesity classification Serious obesity comorbidity presence: with serious comorbidity Qualified Code(s): E66.09 - Other obesity due to excess calories (5) Coronary artery disease Current Visit: Yes Status: Chronic Assessment and plan: Continue management as in NSTEMI Qualifiers: Coronary Disease-Associated Artery/Lesion type: [place] artery [place] vs. transplanted heart: [place] heart Associated angina: with other forms of angina Qualified Code(s): I25.118 - Atherosclerotic heart disease of [place] coronary artery with other forms of angina pectoris (6) S/P CABG (coronary artery bypass graft) Current Visit: Yes Status: Chronic Assessment and plan: as above (7) Hyperlipidemia Current Visit: Yes Status: Chronic Assessment and plan: Increase lipitor to 40mg HS from 20mg HS Qualifiers: Hyperlipidemia type: unspecified Qualified Code(s): E78.5 - Hyperlipidemia , unspecified - Subjective Interval history: Seen, just returned from [facility] Had RAMÍREZ X2 No chest pain at this time, blood pressure is uncontrolled, we will initiate diet and stop IVF - Constitutional Vitals: Temp Pulse Resp BP Pulse Ox 98 F 60 18 148/92 96 04/16/17 11:28 04/16/17 11:28 04/16/17 06:54 04/16/17 11:28 04/16/17 11:28 General appearance: Present: A&O X 3, pleasant, no acute distress, answers questions appropriately - Head Head exam: Present: atraumatic, normocephalic - Eye Eye exam: Present: PERRL, conjuntiva pink, sclera anicteric Pupils: Present: PERRL - Neck Neck exam general surgery: Present: supple, trachea midline. Absent: lymphadenopathy - Respiratory Respiratory exam: Present: CTAB. Absent: accessory muscle use, rales, rhonchi, wheezes - Cardiovascular Cardiovascular exam: Present: RRR, +S1, +S2. Absent: diastolic murmur, gallop, rubs, systolic murmur - GI/Abdominal GI/Abdominal exam: Present: normal bowel sounds, soft, no peritoneal signs. Absent: distended, tenderness - Extremities Exam Extremities exam: Present: warm, radial pulses palpable and symmetrical. Absent : calf tenderness, cyanotic, pedal edema - Neurological Exam Neurological exam: Present: alert, CN II-XII intact, oriented X3, no focal deficits. Absent: pronater drift, facial droop, speech deficit - Skin Skin exam: Present: dry, intact Internal Medicine: Result - Labs CBC & Chem 7: 04/16/17 04:12 04/16/17 04:12 Labs: Short CBC 04/16/17 Range/Units 04:12 WBC 6.6 (4.3-11.1) K/mcL Hgb 14.3 (12.9-16.9) g/dL Hct 41.8 (37.5-50.1) % Plt Count 157 (140-400) K/mcL Neutrophils # 4.5 (1.6-8.9) K/mcL [facility] 04/16/17 04:12 Sodium 136 Potassium 3.7 Chloride 106 Carbon Dioxide 25 BUN 12 Creatinine 0.82 Glucose 228 H Calcium 9.1 - ABG Interpretation ABG results: PT/INR, D-dimer PT 12.6 Seconds (9.4-12.1) H 04/16/17 04:12 - Impressions Impressions Echocardiogram 04/15/17 07:50 Impressions: LVEF 50-55%. Mild left ventricular diastolic dysfunction. Normal right ventricular structure and function. Mildly sclerotic aortic valve leaflets. Mild mitral regurgitation. No pulmonary hypertension. Left Ventricular Wall Motion: Rest Echo Findings All wall segments showed normal motion. Findings: Study Quality * Technically adequate exam. ECG Findings * Normal sinus rhythm. Left Ventricle * LVEF 50-55%. * Mild left ventricular diastolic dysfunction. * Normal LV chamber size, wall thickness and function. Right Ventricle * Normal right ventricular structure and function. Left Atrium * Normal left atrial size. Right Atrium * Normal right atrial size. Aortic Valve * No aortic regurgitation. * Trileaflet aortic valve. * No aortic stenosis. * Mildly sclerotic aortic valve leaflets. Mitral Valve * Normal mitral valve structure. * No mitral stenosis. * Mild mitral regurgitation. Tricuspid Valve * Tricuspid valve not well visualized. * No tricuspid regurgitation. Pulmonic Valve * Pulmonic valve is not well visualized. * No pulmonic stenosis. * Trace pulmonic regurgitation. Pulmonary Artery * Pulmonary artery not well visualized. Aorta * Normally sized aortic root. Pericardium * There is no pericardial effusion present. Interatrial Septum * Interatrial septum not well evaluated. IVC * The IVC is not well evaluated. Consult Discharge Plan - Plan Referrals: NONE,PCP [Primary Care Provider] - [place] [Family Provider] -
[2017-04-16] MEDS ORDERED: Insulin DETEMIR 100 UNIT/ML X5UNITS SQ SCH (21:00)
[2017-04-16] MEDS ORDERED: Insulin LISPRO 300 UNITS/3 ML VIAL SQ SCH (21:00)
[2017-04-17 04:38] LABS: Basophils % 0.3 %; Eosinophils # 0.3 K/mcL (0.0-0.6); Eosinophils % 2.4 %; Hemoglobin 13.9 g/dL (12.9-16.9); Immature Granulocytes % 0.5 % (0-4); Lymphocytes # 0.9 K/mcL (0.6-4.6); Lymphocytes % 8.7 %; Mean Corpuscular HGB Conc 33.9 g/dL (31.6-35.5); Mean Corpuscular Hemoglobin 27.9 pg (28.0-33.3); Mean Corpuscular Volume 82.2 fL (83.0-100.0); Mean Platelet Volume 10.8 fL (9.4-12.4); Monocytes # 0.6 K/mcL (0.0-1.3); Monocytes % 5.9 %; Nucleated Red Blood Cells 0.2 /100 WBC (0); Platelet Count 162 K/mcL (140-400); Red Blood Count 4.99 M/mcL (4.19-5.50); Red Cell Distribution Width 12.3 % (11.5-14.5); Segmented Neutrophils % 82.2 %
[2017-04-17 04:43] LABS: Neutrophils # 8.6 K/mcL (1.6-8.9)
[2017-04-17 05:16] LABS: BUN/Creatinine Ratio 17 (6-26); Blood Urea Nitrogen 16 mg/dL (8-23); Calcium 9.3 mg/dL (8.6-10.3); Carbon Dioxide 23 mEq/L (23-29); Chloride 106 mEq/L (98-107); Glucose 273 mg/dL (70-105); Osmolality,Calculated 293 (280-300); Potassium 4.4 mEq/L (3.5-5.1); Sodium 136 mEq/L (136-145); eGFR For African Americans > 60 (> 60); eGFR For Non-African Americans > 60 (> 60)
[2017-04-17 07:21] VITALS: BP 143/91
[2017-04-17] MEDS: Insulin LISPRO 300 UNITS/3 ML VIAL SQ SCH ×2 (08:14→12:30)
--- NOTE | 2017-04-17 09:14 | Cardiology Progress Note ---
Date of Encounter: 04/17/17 Time of Encounter: 09:10 Assessment and Plan (1) NSTEMI (non-ST elevated myocardial infarction) Current Visit: Yes Status: Acute Per Cardiology: Peak troponin of 0.34. Status post catheterization with PTCA/drug-eluting stent to proximal circumflex 99% lesion. Has mid LAD 99% with patent COOK to mid LAD, remaining OM1 99% lesion with OM1 95% stenosis to proximal anastomosis site, proximal RCA 100% lesion. Has occluded OM 2. Chest pain free. Cardiac rehabilitation consult placed. On aspirin, Brilinta-- assistance card provided , statin, beta morris, ARB. Command provide SL nitroglycerin pills at discharge. Education provided regarding post procedure and OR care. Encouraged to not discontinue dual antiplatelet therapy for at least 1 year. All questions answered. Cardiology will sign off, reconsult as needed, follow- up arranged. Discussion w patient/family: The assessment and plan as outlined above was discussed with the patient and/or family members who expressed understanding and agreement. All questions were answered. Thank you for involving us in the care of your patient. Please call with any questions. Subjective Principal diagnosis: NSTEMI, CAD Interval history: Seen with at bedside. Denies any chest pain, shortness of breath, palpitations Objective Vital Signs, Last 4 Hours Pulse Resp BP Pulse Ox 04/17/17 07:00 73 16 143/91 91 General: Conversant, No Apparent Distress HEENT: Atraumatic, Normocephaly, Mucus Membranes Moist Neck: No JVD, Normal carotid pulses Cardiac: Reg Rate and Rhythm, Normal S1 and S2, No Murmur Lungs: Normal Breath Sounds, No Wheeze, Rales, Rhonchi Neuro: Alert and responsive, No focal deficits noted Abdomen: Soft, Non-Tender Skin: No rashes noted on visualized skin, Other (Right groin site dry and intact , no hematoma, no ecchymosis, no bleeding, right DP and PT pulses 2+ palpable) Musculoskeletal: No Chest Wall Tenderness Extremities: No Clubbing, No Cyanosis, No Edema, Normal Pulses Results 04/17/17 04:16 04/17/17 04:16 Lab Results Laboratory Tests 04/15/17 05:43 Troponin I 0.34 H* ITS Impressions Echocardiogram 04/15/17 07:50 Impressions: LVEF 50-55%. Mild left ventricular diastolic dysfunction. Normal right ventricular structure and function. Mildly sclerotic aortic valve leaflets. Mild mitral regurgitation. No pulmonary hypertension. Left Ventricular Wall Motion: Rest Echo Findings All wall segments showed normal motion. Findings: Study Quality * Technically adequate exam. ECG Findings * Normal sinus rhythm. Left Ventricle * LVEF 50-55%. * Mild left ventricular diastolic dysfunction. * Normal LV chamber size, wall thickness and function. Right Ventricle * Normal right ventricular structure and function. Left Atrium * Normal left atrial size. Right Atrium * Normal right atrial size. Aortic Valve * No aortic regurgitation. * Trileaflet aortic valve. * No aortic stenosis. * Mildly sclerotic aortic valve leaflets. Mitral Valve * Normal mitral valve structure. * No mitral stenosis. * Mild mitral regurgitation. Tricuspid Valve * Tricuspid valve not well visualized. * No tricuspid regurgitation. Pulmonic Valve * Pulmonic valve is not well visualized. * No pulmonic stenosis. * Trace pulmonic regurgitation. Pulmonary Artery * Pulmonary artery not well visualized. Aorta * Normally sized aortic root. Pericardium * There is no pericardial effusion present. Interatrial Septum * Interatrial septum not well evaluated. IVC * The IVC is not well evaluated. Active Medications Acetaminophen (Tylenol) 650 mg PO Q6HR PRN PRN Reason: Fever Stop: 10/15/17 07:54 Last Admin: 04/15/17 08:15 Dose: 650 mg Amlodipine Besylate (Norvasc) 10 mg PO DAILY [facility] PRN Reason: Protocol Stop: 10/15/17 09:01 Last Admin: 04/16/17 08:10 Dose: 10 mg Aspirin (Aspirin) 81 mg PO DAILY [facility] Stop: 10/15/17 09:01 Last Admin: 04/16/17 08:10 Dose: 81 mg Atorvastatin Calcium (Lipitor) 40 mg PO HS [facility] Stop: 10/16/17 21:01 Last Admin: 04/16/17 20:43 Dose: 40 mg Carvedilol (Coreg) 12.5 mg PO BIDWM [facility] PRN Reason: Protocol Stop: 10/15/17 17:01 Last Admin: 04/17/17 08:14 Dose: 12.5 mg Citalopram Hydrobromide (Celexa) 20 mg PO DAILY [facility] Stop: 10/15/17 09:01 Last Admin: 04/16/17 08:10 Dose: 20 mg Dextrose/Water (Dextrose 50% (Syg)) 25 ml IVP AD PRN PRN Reason: Hypoglycemia Stop: 10/15/17 06:33 Glucagon (Glucagen) 1 mg IM ONCE PRN PRN Reason: Hypoglycemia Stop: 10/15/17 06:33 Glucose (Gluctose) 15 gm PO ONCE PRN PRN Reason: Hypoglycemia Stop: 10/15/17 06:33 Glucose (Gluctose) 30 gm PO ONCE PRN PRN Reason: Hypoglycemia Stop: 10/15/17 06:33 Dextrose (Dextrose 5%) 1,000 mls @ 100 mls/hr IVC .Q10H PRN PRN Reason: HYPOGLYCEMIA Stop: 10/15/17 06:33 Insulin Detemir (Levemir) 5 unit SQ HS [facility] Stop: 10/16/17 21:01 Last Admin: 04/16/17 20:43 Dose: 5 unit Insulin Human Lispro (Humalog) 0 units SQ HS [facility] PRN Reason: Protocol Stop: 10/16/17 21:01 Last Admin: 04/16/17 20:43 Dose: 3 units Insulin Human Lispro (Humalog) 0 units SQ TIDAC [facility] PRN Reason: Protocol Stop: 10/16/17 16:31 Last Admin: 04/17/17 08:14 Dose: 4 units Losartan Potassium (Cozaar) 50 mg PO DAILY [facility] Stop: 10/15/17 09:01 Last Admin: 04/16/17 08:10 Dose: 50 mg Multivitamins/Calcium (Thera M Plus) 1 tab PO DAILY [facility] Stop: 10/15/17 09:01 Last Admin: 04/16/17 08:10 Dose: 1 tab Ticagrelor (Brilinta) 90 mg PO BID [facility] Stop: 10/16/17 09:01 Last Admin: 04/16/17 20:43 Dose: 90 mg - Imaging and Cardiology Echo: report reviewed Cardiac cath: report reviewed - VTE Documentation of Mechanical Device: Graduated compression elastic hosiery Consult Discharge Plan - Plan Referrals: NONE,PCP [Primary Care Provider] - Juan [place] [Family Provider] -
[2017-04-17] MEDS: *HR* Ticagrelor 90 MG TABLET PO SCH (09:17)
[2017-04-17] MEDS: amLODIPine 5 MG TABLET PO SCH (09:17)
[2017-04-17] MEDS: Aspirin 81 MG TAB.CHEW PO SCH (09:17)
[2017-04-17] MEDS: Multivit/Ca/Min/Fe/FA 1 TAB TABLET PO SCH (09:17)
[2017-04-17] MEDS ORDERED: Nitroglycerin 0.4 MG TAB.SUBL SL PRN (11:09)
--- NOTE | 2017-04-17 13:27 | Discharge Summary ---
Date of Encounter: 04/17/17 Time of Encounter: 13:21 - Discharge Diagnosis (1) NSTEMI (non-ST elevated myocardial infarction) Priority: Primary Status: Acute (2) Coronary artery disease Priority: Secondary Status: Chronic Qualifiers: Coronary Disease-Associated Artery/Lesion type: [place] artery [place] vs. transplanted heart: [place] heart Associated angina: with other forms of angina Qualified Code(s): I25.118 - Atherosclerotic heart disease of [place] coronary artery with other forms of angina pectoris (3) Diabetes mellitus Priority: Secondary Status: Chronic Qualifiers: Diabetes mellitus type: type 2 Diabetes mellitus complication status: with unspecified complications Diabetes mellitus termite treater insulin use: without termite treater use Qualified Code(s): E11.8 - Type 2 diabetes mellitus with unspecified complications (4) Essential (primary) hypertension Priority: Secondary Status: Chronic (5) Hyperlipidemia Priority: Secondary Status: Chronic Qualifiers: Hyperlipidemia type: unspecified Qualified Code(s): E78.5 - Hyperlipidemia , unspecified (6) Obesity Priority: Secondary Status: Chronic Qualifiers: Obesity type: due to excess calories Obesity classification: unspecified obesity classification Serious obesity comorbidity presence: with serious comorbidity Qualified Code(s): E66.09 - Other obesity due to excess calories (7) S/P CABG (coronary artery bypass graft) Priority: Secondary Status: Chronic Hospital course: The patient is a 61 year old man who presented in the ED at [facility] late yesterday evening c/o 9/10 sharp chest pain radiating to his left shoulder and arm associated with sob, diaphoresis and nausea. His initial troponin was elevated (0.44) and his ECG showed nonspecific ST changes. The symptoms began while at rest and were not relieved until given 2 SL NG and nitropaste was applied. The chest pain was constant in nature. He had been experiencing cp for several day occurring with minimal exertion and resolving after several minutes. The symptoms tonight were much more intense and persisted until given NG. He had a 4v-CABG in [place] in 2012 with no subsequent events or f/u care. He takes aspirin, Lipitor and Metoprolol daily. He received 324 mg of aspirin and was started on a Heparin drip prior to transfer to [facility]. His ECG upon arrival shows TWI in leads I,V4-V6 without ST elevation. Patient was given loading dose of Brilinta 180 mg, continued on heparin drip, nitro paste. Cardiology consulted. He had cardiac catheterization done on 04/15 and had two stents placed. Lipitor dose increased, medications adjusted, he was started on Brilinta and continued on beta morris therapy. Given nitro pills on discharge as well. Plan is to continue dual antiplatelet therapy for at least one year. Patient was chest pain free. Discharged in stable condition. - Time Spent with Patient Total time spent providing and/or coordinating discharge services: - Discharge Medications Prescriptions: Aspirin 81 mg PO DAILY #30 tab.chew Atorvastatin [Lipitor] 40 mg PO HS #30 tablet Carvedilol [Coreg] 12.5 mg PO BIDWM #120 tablet Ticagrelor [Brilinta] 90 mg PO BID #60 tablet Home Medications: Amlodipine Besylate 10 mg PO DAILY 04/15/17 [History] Citalopram [CeleXA] 20 mg PO DAILY 04/15/17 [History] Losartan Potassium [Cozaar] 50 mg PO DAILY 04/15/17 [History] Multivitamin [One Daily Essential] 1 each PO DAILY 04/15/17 [History] glipiZIDE [Glipizide] 10 mg PO DAILY 04/15/17 [History] metFORMIN [Glucophage] 500 mg PO BIDWM 04/15/17 [History] Aspirin 81 mg PO DAILY #30 tab.chew 04/17/17 [Rx] Atorvastatin [Lipitor] 40 mg PO HS #30 tablet 04/17/17 [Rx] Carvedilol [Coreg] 12.5 mg PO BIDWM #120 tablet 04/17/17 [Rx] Ticagrelor [Brilinta] 90 mg PO BID #60 tablet 04/17/17 [Rx] Allergies/Adverse Reactions: 3 Allergy/AdvReac Type Severity Reaction Status Date / Time No Known Allergies Allergy Verified 04/15/17 05:36 Date of admission: 04/15/17 05:13 Primary care physician: PCP NONE Consults: 04/15/17 06:15 Consult to Cardiology [CONS] Routine Comment: Consulting Provider: Cinthia Choi Reason for Consult: NSTEMI Time Notified: 06:16 Call Completed: No 04/17/17 11:09 Consult to Cardiac Rehabilitation-Phase1 [CONS] Routine Comment: Reason for Consult: NSTEMI Call Completed: No Discharging clinician: Guanakito Rheem Ghanem - Constitutional Vitals: Temp Pulse Resp BP Pulse Ox 97.9 F 73 16 143/91 91 04/16/17 21:03 04/17/17 07:00 04/17/17 07:00 04/17/17 07:00 04/17/17 07:00 General appearance: Present: A&O X 3, pleasant, no acute distress, answers questions appropriately - Head Head exam: Present: atraumatic, normocephalic - Eye Eye exam: Present: PERRL, conjuntiva pink, sclera anicteric Pupils: Present: PERRL - Neck Neck exam general surgery: Present: supple, trachea midline. Absent: lymphadenopathy - Respiratory Respiratory exam: Present: CTAB. Absent: accessory muscle use, rales, rhonchi, wheezes - Cardiovascular Cardiovascular exam: Present: RRR, +S1, +S2. Absent: diastolic murmur, gallop, rubs, systolic murmur - GI/Abdominal GI/Abdominal exam: Present: normal bowel sounds, soft, no peritoneal signs. Absent: distended, tenderness - Extremities Exam Extremities exam: Present: warm, radial pulses palpable and symmetrical. Absent : calf tenderness, cyanotic, pedal edema - Neurological Exam Neurological exam: Present: CN II-XII intact, oriented X3, no focal deficits. Absent: pronater drift, facial droop, speech deficit - Skin Skin exam: Present: dry, intact - Patient Status Disposition: Home, Self-Care Condition: Fair Functional capacity at discharge: independent ambulation Overall status at discharge: patient is progressing back to baseline - Discharge Instructions Follow Up With: NONE,PCP [Primary Care Provider] - Juan Lake [Family Provider] - - Diet and Activity Activity: increase activity as tolerated Diet: advance to your usual diet - VTE Documentation of Mechanical Device: Graduated compression elastic hosiery
--- NOTE | 2017-04-17 18:30 | Electrocardiograph Report ---
[place] [id number] Test Date: 2017-04-15 Pat Name: Umberto Jarvis Department: 111 Room: 2NE20 Gender: M [employer] Supervisor: : 1955 Requested By: Marlo Dickens Order Number: [id number] Reading MD: Raghu Pham Measurements Intervals [place] Rate: 54 P: 40 FL: 151 QRS: -6 QRSD: 107 T: 147 QT: 463 QTc: 449 Interpretive Statements SINUS BRADYCARDIA LEFT VENTRICULAR HYPERTROPHY AND ST-T CHANGE Electronically Signed On 04-17-2017 18:28:33 EST by Raghu Pham
== END 2017-04-17 15:05 | disposition home or self-care (01) | DRG 247 ==
LOC: 2NENU
PROVIDERS: ADMIT Internal Medicine; ATTEND Internal Medicine

== ENCOUNTER 2017-04-19 19:18 | Inpatient (IN) ==
--- NOTE | 2017-04-19 20:04 | Emergency Department Note ---
Disposition Clinical Impression: Elevated troponin Chest pain Qualifiers: Chest pain type: precordial pain Qualified Code(s): R07.2 - Precordial pain Disposition: Admitted As Inpatient Condition: Fair Time of Disposition: 21:39 Chest Pain HPI - General Chief Complaint: ED Shortness of Breath/Dyspnea Stated Complaint: had stents placed Sunday, [facility] Time Seen by Provider: 04/19/17 19:50 Source: patient Limitations: no limitations Vital Signs Reviewed: Yes Nursing Notes Reviewed: Yes - History of Present Illness HPI Narrative: 61-year-old male with known coronary artery disease who had CABG in 2012 presents complaining of chest pain. He was just admitted several days ago with chest pain and had 2 stents placed in the LAD here by Dr. Wallace 3 days ago. States he was doing fine until this evening about 5 PM when he developed some mid substernal chest pain and pressure. He complains of some nausea and vomiting. Heart is of breath. No radiation of the pain. Pt complaint: chest pain Onset (ago): hour(s) Duration: constant Onset: during rest Pain Location: substernal Severity scale (1-10): 6 Quality: tightness, heaviness Pain Radiation: none Associated symptoms: Reports: nausea, vomiting, dyspnea. Denies: syncope, fever , cough Treatments prior to arrival chest pain: none - Related Data Home Medications Medication Instructions Recorded Confirmed Amlodipine Besylate 10 mg PO DAILY 04/15/17 04/19/17 Citalopram [CeleXA] 20 mg PO DAILY 04/15/17 04/19/17 Losartan Potassium [Cozaar] 50 mg PO DAILY 04/15/17 04/19/17 Multivitamin [One Daily Essential] 1 each PO DAILY 04/15/17 04/19/17 glipiZIDE [Glipizide] 10 mg PO DAILY 04/15/17 04/19/17 metFORMIN [Glucophage] 500 mg PO BIDWM 04/15/17 04/19/17 Atorvastatin Calcium [Lipitor] 20 mg PO HS 04/19/17 04/19/17 Previous Rx's Medication Instructions Recorded Aspirin 81 mg PO DAILY #30 tab.chew 04/17/17 Carvedilol [Coreg] 12.5 mg PO BIDWM #120 tablet 04/17/17 Nitroglycerin 0.4 mg SL Q5MIN #9 tab.subl 04/17/17 Ticagrelor [Brilinta] 90 mg PO BID #60 tablet 04/17/17 Allergies Allergy/AdvReac Type Severity Reaction Status Date / Time No Known Allergies Allergy Verified 04/15/17 05:36 All systems ED: reviewed and negative except as stated. Constitutional: Denies: fever Cardiovascular: Reports: chest pain Respiratory: Reports: dyspnea Gastrointestinal: Reports: nausea, vomiting Chest Pain PMH - Past Medical History Medical history: Reports: coronary artery disease, diabetes, hyperlipidemia, hypertension, kidney stones Surgical history: Reports: coronary bypass (CABG) Psychiatric history: Reports: depression - Social History Smoking Status: Never smoker Alcohol use: Reports: none Drug use: Reports: none Physical Exam - General Limitations: no limitations General appearance: alert, in no apparent distress - Head Head exam: atraumatic, normocephalic, normal inspection - Eye Eye exam: Present: normal appearance - ENT ENT exam: normal exam, normal oropharynx, mucous membranes moist - Neck Neck exam: Present: normal inspection, full ROM. Absent: tenderness, meningismus, lymphadenopathy - Chest Chest inspection: Present: normal inspection, symmetric chest wall rise. Absent : tenderness - Respiratory Respiratory exam: Present: normal lung sounds bilaterally. Absent: respiratory distress, wheezes - Cardiovascular Cardiovascular exam: Present: regular rate, normal rhythm, normal heart sounds - Abdominal Exam Abdominal exam: Present: soft, Non-Tender, normal bowel sounds. Absent: distention, guarding, rebound, rigidity - Extremities Exam Extremities exam: Present: normal inspection, full ROM. Absent: tenderness, pedal edema - Back Exam Back exam: Present: normal inspection. Absent: CVA tenderness (R), CVA tenderness (L) - Neurological Exam Neurological exam: Present: alert, oriented X3. Absent: motor sensory deficit - Psychiatric Psychiatric exam: Present: normal affect, normal mood - Skin Skin exam: Present: warm, dry, intact, normal color. Absent: cyanosis, diaphoresis Course Course Narrative: 61-year-old male with recent coronary artery stent placement 3 days ago. Presents with recurrence of substernal chest pain. No acute changes on EKG. Workup reveals a troponin of 1.83 however he just had stents 3 days ago and unclear this is related to stent placement. Patient had improvement here with aspirin and nitroglycerin. - Consultations Consultation #1: Rosanne, Dr. Mcgrath, was consulted and accepted admission of the patient. Consultation #2: Discussed with the vacuum closing machine operator clinician oncology, Dr. Frederick. He recommended starting patient on heparin and trending troponins. Time: 21:20 Vital Signs Temperature 98.2 F 04/19/17 19:20 Pulse Rate 103 04/19/17 19:20 Respiratory Rate 20 04/19/17 19:20 Blood Pressure 125/84 04/19/17 19:20 O2 Sat by Pulse Oximetry 92 04/19/17 19:20 Temperature 98.2 F 04/19/17 19:20 Pulse Rate 108 04/19/17 22:00 Respiratory Rate 20 04/19/17 20:56 Blood Pressure 145/75 04/19/17 22:00 O2 Sat by Pulse Oximetry 93 04/19/17 22:00 Oxygen Delivery Oxygen Delivery Nasal Cannula Chest Pain - Lab Data Result diagrams: 04/19/17 20:12 04/19/17 20:12 Lab Results 04/19/17 04/19/17 04/19/17 Range/Units 20:12 20:12 20:12 WBC 12.8 H (4.3-11.1) K/mcL RBC 4.64 (4.19-5.50) M/mcL Hgb 13.0 (12.9-16.9) g/dL Hct 37.3 L (37.5-50.1) % MCV 80.4 L (83.0-100.0) fL MCH 28.0 (28.0-33.3) pg MCHC 34.9 (31.6-35.5) g/dL RDW 12.2 (11.5-14.5) % Plt Count 113 L (140-400) K/mcL MPV 10.7 (9.4-12.4) fL Immature Gran % 0.5 (0-4) % Seg Neutrophils % 91.4 % Lymphocytes % 2.1 % Monocytes % 5.9 % Eosinophils % 0.0 % Basophils % 0.1 % Neutrophils # 11.7 H (1.6-8.9) K/mcL Lymphocytes # 0.3 L (0.6-4.6) K/mcL Monocytes # 0.8 (0.0-1.3) K/mcL Eosinophils # 0.0 (0.0-0.6) K/mcL Basophils # 0.0 (0.0-0.2) K/mcL PT (9.4-12.1) Seconds INR APTT (26.0-36.0) Seconds Sodium 126 L (136-145) mEq/L Potassium 3.8 (3.5-5.1) mEq/L Chloride 95 L (98-107) mEq/L Carbon Dioxide 20 L (23-29) mEq/L BUN 27 H (8-23) mg/dL Creatinine 1.14 (0.70-1.30) mg/dL Est GFR ( Amer) > 60 (> 60) Est GFR (Non-Af Amer) > 60 (> 60) BUN/Creatinine Ratio 24 (6-26) Glucose 305 H (70-105) mg/dL Calculated Osmolality 279 L (280-300) Lactic Acid (0.5-2.2) mmol/L Calcium 9.1 (8.6-10.3) mg/dL Troponin I 1.83 H* (< 0.04) ng/mL B-Natriuretic Peptide (Less than 100) pg/mL 04/19/17 04/19/17 04/19/17 Range/Units 20:12 20:12 20:44 WBC (4.3-11.1) K/mcL RBC (4.19-5.50) M/mcL Hgb (12.9-16.9) g/dL Hct (37.5-50.1) % MCV (83.0-100.0) fL MCH (28.0-33.3) pg MCHC (31.6-35.5) g/dL RDW (11.5-14.5) % Plt Count (140-400) K/mcL MPV (9.4-12.4) fL Immature Gran % (0-4) % Seg Neutrophils % % Lymphocytes % % Monocytes % % Eosinophils % % Basophils % % Neutrophils # (1.6-8.9) K/mcL Lymphocytes # (0.6-4.6) K/mcL Monocytes # (0.0-1.3) K/mcL Eosinophils # (0.0-0.6) K/mcL Basophils # (0.0-0.2) K/mcL PT 16.9 H (9.4-12.1) Seconds INR 1.6 APTT 31.5 (26.0-36.0) Seconds Sodium (136-145) mEq/L Potassium (3.5-5.1) mEq/L Chloride (98-107) mEq/L Carbon Dioxide (23-29) mEq/L BUN (8-23) mg/dL Creatinine (0.70-1.30) mg/dL Est GFR ( Amer) (> 60) Est GFR (Non-Af Amer) (> 60) BUN/Creatinine Ratio (6-26) Glucose (70-105) mg/dL Calculated Osmolality (280-300) Lactic Acid 2.5 H (0.5-2.2) mmol/L Calcium (8.6-10.3) mg/dL Troponin I (< 0.04) ng/mL B-Natriuretic Peptide 104 H (Less than 100) pg/mL Critical Care Time Critical Care Time: Yes Total Critical Care Time: 40 Attestation: Critical care performed: Time is exclusive of separately billable procedures. Time includes: direct patient care, patient reassessment, coordination of patient care, interpretation of data (laboratory data, radiology data, and respiratory data), review of patient's medical records, medical consultation and documentation of patient care. Procedures included in critical care time: Procedures excluded from critical care time:
[2017-04-19] MEDS ORDERED: Aspirin 81 MG TAB.CHEW PO ONE (20:05)
[2017-04-19] MEDS ORDERED: Nitroglycerin 0.4 MG TAB.SUBL SL ONE (20:05)
[2017-04-19] MEDS ORDERED: Ondansetron 4 MG/2 ML VIAL IVP ONE (20:05)
[2017-04-19 20:34] LABS: Basophils % 0.1 %; Hematocrit 37.3 % (37.5-50.1); Immature Granulocytes % 0.5 % (0-4); Lymphocytes # 0.3 K/mcL (0.6-4.6); Lymphocytes % 2.1 %; Mean Corpuscular HGB Conc 34.9 g/dL (31.6-35.5); Mean Corpuscular Volume 80.4 fL (83.0-100.0); Mean Platelet Volume 10.7 fL (9.4-12.4); Monocytes # 0.8 K/mcL (0.0-1.3); Monocytes % 5.9 %; Neutrophils # 11.7 K/mcL (1.6-8.9); Platelet Count 113 K/mcL (140-400); Red Blood Count 4.64 M/mcL (4.19-5.50); Red Cell Distribution Width 12.2 % (11.5-14.5); Segmented Neutrophils % 91.4 %
[2017-04-19 20:39] LABS: INR 1.6; Prothrombin Time 16.9 Seconds (9.4-12.1)
[2017-04-19 20:42] LABS: Activated Partial Thrombo Time 31.5 Seconds (26.0-36.0)
[2017-04-19 20:49] LABS: BUN/Creatinine Ratio 24 (6-26); Blood Urea Nitrogen 27 mg/dL (8-23); Calcium 9.1 mg/dL (8.6-10.3); Carbon Dioxide 20 mEq/L (23-29); Chloride 95 mEq/L (98-107); Glucose 305 mg/dL (70-105); Osmolality,Calculated 279 (280-300); Potassium 3.8 mEq/L (3.5-5.1); Sodium 126 mEq/L (136-145); eGFR For African Americans > 60 (> 60); eGFR For Non-African Americans > 60 (> 60)
[2017-04-19] MEDS ORDERED: *HR* Heparin 5,000 UNIT/ML VIAL IVP PRN ×2 (21:43)
[2017-04-19] MEDS ORDERED: *HR* Heparin 5,000 UNIT/ML VIAL IVP ONE (21:43)
[2017-04-19] MEDS ORDERED: Heparin 25,000 UNIT/500 ML D5W 25,000 UNIT/500 ML BAG IVC SCH (21:45)
[2017-04-20] MEDS ORDERED: Furosemide 40 MG/4 ML VIAL IVP ONE (02:51)
[2017-04-20 03:05] LABS: ABG Base Excess 1 mEq/L (-2 to 3); ABG HCO3 23 mEq/L (21-27); ABG Oxygen Saturation 94 % (95-98); ABG PCO2 29 mmHg (35-45); ABG PH 7.52 pH Units (7.32-7.45); ABG PO2 63 mmHg (85-104); ABG TCO2 24 mEq/L (20-26)
[2017-04-20] MEDS ORDERED: Naloxone 0.4 MG/ML INJ IVP PRN (03:15)
[2017-04-20] MEDS ORDERED: *HR* Dextrose 50 % in Water (Syg) 50 ML SYRINGE IVP PRN ×2 (03:21→15:12)
[2017-04-20] MEDS ORDERED: Dextrose Gel 15 GM/37.5 ML TUBE PO PRN ×4 (03:21→15:12)
[2017-04-20] MEDS ORDERED: D5% in Water 1,000 ML IVC PRN ×2 (03:21→15:12)
--- NOTE | 2017-04-20 03:24 | Internal Med History&Physical ---
Date of Encounter: 04/20/17 Time of Encounter: 03:24 Assessment and Plan (1) Chest pain Current visit: Yes Status: Acute 61/male Multiple comorbid conditions. Recently underwent PCI and stent placement. Came with worsening shortness of breath along with elevated troponin. On examination: Comfortable in a propped up position. Elevated JVP. Bibasal crepitations. S3 present. Presence of a wound on her left forearm which is bluish black in color. Assessment: Acute decompensated congestive heart failure likely secondary to infective cause : Infected/infiltrated IV site. Patient has multiple comorbid issues. Possibility of a Brillinta induced worsening shortness of breath cannot be ruled out. Plan: Admitted as a inpatient. Cycle troponin. Continue heparin drip Resume home medication. Aspirin/Brillinta/BB/Statin Subcutaneous insulin order set Resume antihypertensive. Cardiology consult placed We will follow the recommendations from cardiology. I examined this patient along with the patient's RN Plan of care discussed with the patient and patient's who was admitted bedside. This patient needs to move from a observation telemetry unit to stepdown unit. If there is no stepdown unit bed available then he needs to go to ICU as a stepdown unit patient. Qualifiers: Chest pain type: precordial pain Qualified Code(s): R07.2 - Precordial pain (2) Essential (primary) hypertension Current visit: No Status: Chronic Patient's blood pressure is not within acceptable range. We will follow the recommendations from cardiology. (3) Coronary artery disease Current visit: No Status: Chronic As above Qualifiers: Coronary Disease-Associated Artery/Lesion type: [place] artery [place] vs. transplanted heart: [place] heart Associated angina: with other forms of angina Qualified Code(s): I25.118 - Atherosclerotic heart disease of [place] coronary artery with other forms of angina pectoris (4) Diabetes mellitus Current visit: No Status: Chronic Type 2 diabetes mellitus. Presently we will hold all the oral hypoglycemic agents. We will follow recommendations from subcutaneous insulin orders set. Qualifiers: Diabetes mellitus type: type 2 Diabetes mellitus complication status: with unspecified complications Diabetes mellitus snf insulin use: without snf use Qualified Code(s): E11.8 - Type 2 diabetes mellitus with unspecified complications (5) Hyperlipidemia Current visit: No Status: Chronic We will continue present medication. We will get a lipid panel tomorrow. Qualifiers: Hyperlipidemia type: unspecified Qualified Code(s): E78.5 - Hyperlipidemia , unspecified (6) DVT prophylaxis Current visit: Yes Status: Acute Heparin drip Medical decision making: This patient has a moderate to severe risk of worsening in spite of being on appropriate medication. His underlying chronic comorbid conditions. Internal Medicine - H&P: HPI Chief complaint: Chest pain Admitted From: Emergency Dept Plans for Post Hospital Care: Home History of present illness: PCP: Kannan spear Brief past medical history: Diabetes, hypertension, hyperlipidemia, previous kidney stones, previous coronary artery bypass graft in 2010, recently 3 days back patient underwent PCI with 2 stents. History of present medical illness: Patient started having sudden worsening of shortness of breath since this afternoon. Upon discharge 3 days back patient was absolutely fine in terms of his breathing. Patient noted that it was difficult for him to lay down flat and was able to sit up for most of the time. According to patient's in last 4 days patient has skin more than 8 pounds. Patient's weight before coming to the hospital for stent placement was 216 pounds and now it is around 224 pounds. Patient denies chest pain, nausea, vomiting, abdominal pain, dizziness or diarrhea. Patient occasionally complains of mild chest discomfort. In view of this worsening shortness of breath and mild chest discomfort patient was brought to the ER for further evaluation. It was noted that on the patient's left arm there is a wound which is likely from the previous intravenous access. Workup in the emergency room: Patient was evaluated in the emergency room. Baseline labs are drawn. Noted that patient's troponin was elevated. Cardiology was contacted. Cardiology recommended to start a heparin drip. Reason for admission: Clinically acute decompensated heart failure in a patient who recently underwent a stent placement. Etiology of this is likely infective , source: IV site infiltration. Family history: Noncontributory Past Med Surg Social Fam HX - Past Medical History Medical history: coronary artery disease, diabetes, hyperlipidemia, hypertension , kidney stones Psychiatric history: depression - Past Surgical History Surgical History: coronary bypass (CABG) - Social History Smoking Status: Never smoker Smokeless Tobacco Status: No Alcohol use: none Drug use: none - Family History Mother Living Status: Still Living Hx Family Cardiac Disorders: Yes (CAD s/p CABG in 70s) Hx Family Respiratory Disorders: Yes (copd) Hx Family Cancer: Yes (lung ca) Hx Family Endocrine Disorder: No Father Adopted: [place]: KRISTY PABLO Living Status: Age at : 60 Cause of : MYOCARDIAL INFARCTION Hx Family Cardiac Disorders: Yes ([place]) Hx Family Respiratory Disorders: No Hx Family Cancer: No Hx Family GI Disorders: No Hx Family Genitourinary Disorders: No Hx Family Endocrine Disorder: No Hx Family Musculoskeletal Disorders: No Hx Family Neuromuscular Disorders: No Hx Family Neurologic Disorders: No Hx Family HEENT Disorders: No Hx Family Autoimmune Disorders: No Hx Family Reproductive Disorders: No Hx Family Psychosocial Disorders: No Hx Family Medical Disorders: No Internal Medicine - H&P: Meds Amlodipine Besylate 10 mg PO DAILY 04/15/17 [History] Citalopram [CeleXA] 20 mg PO DAILY 04/15/17 [History] Losartan Potassium [Cozaar] 50 mg PO DAILY 04/15/17 [History] Multivitamin [One Daily Essential] 1 each PO DAILY 04/15/17 [History] glipiZIDE [Glipizide] 10 mg PO DAILY 04/15/17 [History] metFORMIN [Glucophage] 500 mg PO BIDWM 04/15/17 [History] Aspirin 81 mg PO DAILY #30 tab.chew 04/17/17 [Rx] Carvedilol [Coreg] 12.5 mg PO BIDWM #120 tablet 04/17/17 [Rx] Nitroglycerin 0.4 mg SL Q5MIN #9 tab.subl 04/17/17 [Rx] Ticagrelor [Brilinta] 90 mg PO BID #60 tablet 04/17/17 [Rx] Atorvastatin Calcium [Lipitor] 20 mg PO HS 04/19/17 [History] 3 Allergy/AdvReac Type Severity Reaction Status Date / Time No Known Allergies Allergy Verified 04/15/17 05:36 All Systems PM: A 10-system review of systems was performed and is negative for pertinent findings except as documented above in the HPI. - Constitutional Constitutional: no chills, no fever(s), no night sweats - EENT Eyes: no change in vision, no discharge, no pain, no photophobia Ears: no ear discharge, no ear pain, no tinnitus Nose, mouth and throat: no dysphagia, no nasal discharge, no neck pain, no sore throat - Cardiovascular Cardiovascular ROS IM: chest pain, diaphoresis, dyspnea, lightheadedness, no palpitations, no syncope - Respiratory Respiratory: wheezing, no cough, no dyspnea, no excessive phlegm production - Gastrointestinal Gastrointestinal: no abdominal pain, no diarrhea, no hematemesis, no hematochezia, no melena, no nausea, no vomiting - Musculoskeletal Musculoskeletal ROS IM: no numbness, no tingling - Integumentary Integumentary IM: no rash, no unusual bruising - Neurological Neurological ROS: no confusion, no convulsions, no focal weakness, no numbness, no tingling, no tremor(s) - Hematologic/Lymphatic Hematologic/Lymphatic: no easy bruising - Constitutional Vitals: Temp Pulse Resp BP Pulse Ox 100.7 F H 106 24 137/77 94 04/19/17 22:39 04/19/17 22:39 04/20/17 03:03 04/20/17 03:03 04/20/17 03:03 General appearance: Present: mild distress, A&O X 3, pleasant, answers questions appropriately - Head Head exam: Present: atraumatic, normocephalic - Eye Eye exam: Present: PERRL, conjuntiva pink, sclera anicteric Pupils: Present: PERRL - Neck Neck exam general surgery: Present: supple, trachea midline. Absent: lymphadenopathy - Respiratory Respiratory exam: Present: CTAB. Absent: accessory muscle use, rales, rhonchi, wheezes - Cardiovascular Cardiovascular exam: Present: RRR, +S1, +S2. Absent: diastolic murmur, gallop, rubs, systolic murmur - GI/Abdominal GI/Abdominal exam: Present: normal bowel sounds, soft, no peritoneal signs. Absent: distended, tenderness - Extremities Exam Extremities exam: Present: warm, radial pulses palpable and symmetrical. Absent : calf tenderness, cyanotic, pedal edema - Neurological Exam Neurological exam: Present: CN II-XII intact, oriented X3, no focal deficits. Absent: pronater drift, facial droop, speech deficit - Skin Skin exam: Present: dry, intact Internal Med - H&P Results - Labs CBC & Chem 7: 04/19/17 20:12 04/19/17 20:12 - ABG Interpretation ABG results: 04/20/17 02:56 ABG pH 7.52 H ABG pCO2 29 L ABG pO2 63 L ABG HCO3 23 ABG Total CO2 24 ABG O2 Saturation 94 L ABG Base Excess 1
[2017-04-20] MEDS ORDERED: Acetaminophen 325 MG TABLET PO PRN (04:26)
[2017-04-20 05:16] LABS: Basophils % 0.1 %; Hematocrit 36.4 % (37.5-50.1); Hemoglobin 12.6 g/dL (12.9-16.9); Immature Granulocytes % 0.5 % (0-4); Lymphocytes # 0.2 K/mcL (0.6-4.6); Lymphocytes % 2.2 %; Mean Corpuscular HGB Conc 34.6 g/dL (31.6-35.5); Mean Corpuscular Hemoglobin 27.8 pg (28.0-33.3); Mean Corpuscular Volume 80.4 fL (83.0-100.0); Mean Platelet Volume 11.2 fL (9.4-12.4); Monocytes # 0.7 K/mcL (0.0-1.3); Monocytes % 6.6 %; Neutrophils # 9.9 K/mcL (1.6-8.9); Nucleated Red Blood Cells 0.2 /100 WBC (0); Platelet Count 121 K/mcL (140-400); Red Blood Count 4.53 M/mcL (4.19-5.50); Red Cell Distribution Width 12.4 % (11.5-14.5); Segmented Neutrophils % 90.6 %
[2017-04-20 05:25] LABS: INR 1.5; Prothrombin Time 15.9 Seconds (9.4-12.1)
[2017-04-20 05:33] LABS: Alanine Aminotransferase 82 Units/L (7-52); Albumin 3.9 g/dL (3.5-5.7); Albumin/Globulin Ratio 1.4 (1.1-2.2); Alkaline Phosphatase 63 Units/L (34-104); Aspartate Amino Transferase 61 Units/L (13-39); BUN/Creatinine Ratio 26 (6-26); Bilirubin,Total 1.4 mg/dL (0.3-1.0); Blood Urea Nitrogen 31 mg/dL (8-23); Carbon Dioxide 22 mEq/L (23-29); Chloride 91 mEq/L (98-107); Chol/HDL Ratio 4.5 (0-4.9); Cholesterol 122 mg/dL (< 200); Globulin 2.7 g/dL (2.4-3.5); Glucose 294 mg/dL (70-105); HDL Cholesterol 27 mg/dL (40-59); LDL Cholesterol,Calculated 68 mg/dL (0-99); Magnesium 1.6 mg/dL (1.6-2.6); Osmolality,Calculated 277 (280-300); Phosphorous 2.7 mg/dL (2.7-4.5); Potassium 3.2 mEq/L (3.5-5.1); Sodium 125 mEq/L (136-145); Total Protein 6.6 g/dL (6.4-8.9); Triglycerides 135 mg/dL (< 150); eGFR For African Americans > 60 (> 60); eGFR For Non-African Americans > 60 (> 60)
[2017-04-20] MEDS ORDERED: *HR* HYDROcodone/Acet 5/325 mg TABLET PO PRN (05:50)
[2017-04-20] MEDS ORDERED: *HR* Midazolam HCl 5 MG/5 ML VIAL IVP ONE (07:41)
[2017-04-20] MEDS ORDERED: *HR* Etomidate 20 MG/10 ML AMPUL IVP ONE ×2 (07:41→17:20)
[2017-04-20] MEDS: Insulin LISPRO 300 UNITS/3 ML VIAL SQ SCH ×4 (08:00→23:43)
--- NOTE | 2017-04-20 08:29 | Internal Med Progress Note ---
Date of Encounter: 04/20/17 Time of Encounter: 08:27 - Assessment and plan (1) Sepsis Current Visit: Yes Status: Acute Assessment and plan: Sepsis secondary to left wrist infection from prior IV Senda culture Continue vancomycin IV Sent nasal swab to test for respiratory infection panel Hold IV fluids due to possible acute CHF exacerbation Was given 1 dose of Lasix, may continue Lasix after reviewing the CT scans (2) Elevated troponin Current Visit: Yes Status: Acute Assessment and plan: Likely related to recent stents [place]ina CTA of the chest and abdomen Hold heparin drip for now, may resume aspirin and Brilinta if no dissection is found Carvedilol Consider cardiology consult (3) Coronary artery disease Current Visit: No Status: Chronic Qualifiers: Coronary Disease-Associated Artery/Lesion type: [place] artery [place] vs. transplanted heart: [place] heart Associated angina: with other forms of angina Qualified Code(s): I25.118 - Atherosclerotic heart disease of [place] coronary artery with other forms of angina pectoris (4) Diabetes mellitus Current Visit: No Status: Chronic Assessment and plan: Insulin sliding scale Qualifiers: Diabetes mellitus type: type 2 Diabetes mellitus complication status: with unspecified complications Diabetes mellitus intermodal dispatcher insulin use: without intermodal dispatcher use Qualified Code(s): E11.8 - Type 2 diabetes mellitus with unspecified complications (5) Essential (primary) hypertension Current Visit: No Status: Chronic Assessment and plan: Losartan (6) Obesity Current Visit: No Status: Chronic Qualifiers: Obesity type: due to excess calories Obesity classification: unspecified obesity classification Serious obesity comorbidity presence: with serious comorbidity Qualified Code(s): E66.09 - Other obesity due to excess calories (7) S/P CABG (coronary artery bypass graft) Current Visit: No Status: Chronic - Subjective Interval history: Complaining of chest and back pain that has progressed in affected abdominal area, feels short of breath, run a fever 102.9, no dysuria or diarrhea - Constitutional Vitals: Temp Pulse Resp BP Pulse Ox 101.1 F H 107 25 123/75 97 04/20/17 08:24 04/20/17 08:24 04/20/17 08:24 04/20/17 08:24 04/20/17 08:24 General appearance: Present: mild distress, A&O X 3, pleasant, answers questions appropriately - Head Head exam: Present: atraumatic, normocephalic - Eye Eye exam: Present: PERRL, conjuntiva pink, sclera anicteric Pupils: Present: PERRL - Neck Neck exam general surgery: Present: supple, trachea midline. Absent: lymphadenopathy - Respiratory Respiratory exam: Present: decreased breath sounds, CTAB, rales. Absent: accessory muscle use, rhonchi, wheezes - Cardiovascular Cardiovascular exam: Present: RRR, +S1, +S2. Absent: diastolic murmur, gallop, rubs, systolic murmur - GI/Abdominal GI/Abdominal exam: Present: normal bowel sounds, soft, no peritoneal signs. Absent: distended, tenderness - Extremities Exam Extremities exam: Present: warm, radial pulses palpable and symmetrical. Absent : calf tenderness, cyanotic, pedal edema Additional comments: Small draining area in the left wrist area with bloody drainage material, generalized edema in the left hand - Neurological Exam Neurological exam: Present: CN II-XII intact, oriented X3, no focal deficits. Absent: pronater drift, facial droop, speech deficit - Skin Skin exam: Present: dry, intact Internal Medicine: Result - Labs CBC & Chem 7: 04/20/17 03:48 04/20/17 03:48 Labs: Short CBC 04/20/17 Range/Units 03:48 WBC 10.9 (4.3-11.1) K/mcL Hgb 12.6 L (12.9-16.9) g/dL Hct 36.4 L (37.5-50.1) % Plt Count 121 L (140-400) K/mcL Neutrophils # 9.9 H (1.6-8.9) K/mcL BMP 04/20/17 03:48 Sodium 125 L Potassium 3.2 L Chloride 91 L Carbon Dioxide 22 L BUN 31 H Creatinine 1.20 Glucose 294 H Calcium 9.0 Cardiac Enzymes 04/20/17 Range/Units 03:48 Troponin I 1.86 H* (< 0.04) ng/mL Liver Function 04/20/17 Range/Units 03:48 Total Bilirubin 1.4 H (0.3-1.0) mg/dL AST 61 H (13-39) Units/L ALT 82 H (7-52) Units/L Alkaline Phosphatase 63 (34-104) Units/L Albumin 3.9 (3.5-5.7) g/dL - ABG Interpretation ABG results: ABG ABG pH 7.52 pH Units (7.32-7.45) H 04/20/17 02:56 ABG pCO2 29 mmHg (35-45) L 04/20/17 02:56 ABG pO2 63 mmHg (85-104) L 04/20/17 02:56 ABG O2 Saturation 94 % (95-98) L 04/20/17 02:56 PT/INR, D-dimer PT 15.9 Seconds (9.4-12.1) H 04/20/17 03:48 Consult Discharge Plan - Plan Referrals: Kannan Hurley DO [Primary Care Provider] - [place] [Family Provider] -
[2017-04-20] MEDS: Aspirin 81 MG TAB.CHEW PO SCH (09:56)
[2017-04-20] MEDS: amLODIPine 5 MG TABLET PO SCH (09:57)
[2017-04-20] MEDS: *HR* Ticagrelor 90 MG TABLET PO SCH ×2 (09:57→21:23)
[2017-04-20] MEDS ORDERED: Levofloxacin 750 MG/150 ML 750 MG/150 ML BAG IVPB SCH (10:00)
[2017-04-20] MEDS: Cefepime HCl 1,000 MG in Water for inj. (sterile) 20 ML 10 ML IVP SCH ×2 (11:01→18:48)
[2017-04-20 12:24] LABS: Adenovirus Not Detected (Not Detect); Bordetella Pertussis Not Detected (Not Detect); Chlamydophila pneumoniae Not Detected (Not Detect); Coronavirus 229E Not Detected (Not Detect); Coronavirus HKU1 Not Detected (Not Detect); Coronavirus NL63 Not Detected (Not Detect); Coronavirus OC43 Not Detected (Not Detect); Human Metapneumovirus Not Detected (Not Detect); Human Rhinovirus/Enterovirus Not Detected (Not Detect); Influenza A Subtype 2009 H1 Not Detected (Not Detect); Influenza A Untypeable Not Detected (Not Detect); Influenza B Not Detected (Not Detect); Mycoplasma pneumoniae Not Detected (Not Detect); Parainfluenza Virus 1 Not Detected (Not Detect); Parainfluenza Virus 2 Not Detected (Not Detect); Parainfluenza Virus 3 Not Detected (Not Detect); Parainfluenza Virus 4 Not Detected (Not Detect); Respiratory Syncytial Virus Not Detected (Not Detect)
--- NOTE | 2017-04-20 13:56 | Pulmonology Consult Note ---
<Segundo Fairbanks - Last Filed: 04/20/17 15:23> Date of Encounter: 04/20/17 Time of Encounter: 13:48 Assessment and Plan (1) Acute respiratory failure with hypoxia Current Visit: Yes Status: Acute Acute respiratory failure with hypoxia likely secondary to pneumonia The patient is having significant increased work of breathing, dyspnea, low oxygen saturation WBC 10.9 (down from 12.8), HR >100, RR >20, BP 96/71. Lactic acid 2.5 -> 0.2, Blood cultures pending CTA Chest Multifocal nodular consolidations are noted throughout both lungs, likely related to pneumonia with associated small bilateral pleural effusions. Metastatic disease is considered less likely. Follow-up examination in 1-2 months is recommended. ABG 7.52 pCO2 29 pO2 63 HCO3 23 Exam demonstrates decreased lung sounds, increased work of breathing, accessory muscle use There is substantial abdominal distension which may be exacerbating respiratory distress Plan: Continue Levaquin, cefepime, vancomycin; de-escalate pending cultures Place NG Tube to decompress abdomen Monitor O2 sats closely, consider intubation for respiratory failure Repeat ABG Repeat CBC, BMP in the AM (2) Coronary artery disease Current Visit: Yes Status: Chronic CAD s/p PCI with 2 stents 04/16/17 Patient is not having active chest pain, however has had elevated troponin Heparin drip was discontinued 2/2 intra-abdominal hemorrhage Cardiology is on board and will follow, appreciate recommendations Qualifiers: Coronary Disease-Associated Artery/Lesion type: mcgrath artery [place] vs. transplanted heart: mcgrath heart Associated angina: with other forms of angina Qualified Code(s): I25.118 - Atherosclerotic heart disease of mcgrath coronary artery with other forms of angina pectoris (3) Diabetes mellitus Current Visit: Yes Status: Chronic Diabetes mellitus type 2 with hyperglycemia Patient was on sliding scale insulin, however is now NPO We will monitor glucose q6h Qualifiers: Diabetes mellitus type: type 2 Diabetes mellitus complication status: with hyperglycemia Diabetes mellitus snf insulin use: without snf use Qualified Code(s): E11.65 - Type 2 diabetes mellitus with hyperglycemia (4) Hematoma Current Visit: Yes Status: Acute Large abdominus rectus hematoma Patient has large hematoma as seen on CTA of the abdomen/pelvis There is extension of the hematoma into the retroperitoneal and pelvic space There is significant abdominal distension and tenderness associated with this We will check retroperitoneal US and EV US of the Right LE for Pseudoaneurysm We will manage pain with fentanyl and precedex (5) Essential (primary) hypertension Current Visit: No Status: Chronic Continue home meds as tolerated (6) Hypokalemia Current Visit: Yes Status: Acute Replace magnesium and potassium Goal K+> 4.0, Mg >2.0 (7) Hyponatremia Current Visit: Yes Status: Acute Likely secondary to volume overload (8) Hyperlipidemia Current Visit: No Status: Chronic Stable Qualifiers: Hyperlipidemia type: unspecified Qualified Code(s): E78.5 - Hyperlipidemia , unspecified (9) DVT prophylaxis Current Visit: Yes Status: Acute Patient has active bleeding. Anticoagulation is contraindicated in this patient. Antiplatelet therapy per cardiology History of Present Illness Consult date: 04/20/17 Requesting physician: Clive Ruiz Reason for consult: dyspnea Chief complaint: KAMERON History of present illness: Mr. Pablo is a 61yo man with history of diabetes mellitus, hypertension, hyperlipidemia, renal calculi, CABG in 2010, and recent admission with PCI and 2 stents on 04/16 who presented to the ED overnight with acute shortness of breath and abdominal pain. He says that when he left the hospital on the he felt completely better and was having no problems with shortness of breath, however this developed suddenly and he came immediately to the ED. In addition this, the patient does admit that he had severe abdominal pain which also started at around the same time. Patient says that the shortness of breath that developed suddenly, it is somewhat relieved by rest. He denies fever, chills, sweats, increased cough or sputum production, and he says that he has never had anything exactly like this in the past. He is conversationally dyspneic, and his says that he appears more labored than he generally does. He describes the abdominal pain as central in nature, 6 out of 10, constant and dull, and nonradiating although he does admit having some pain in his back which started at approximately the same time. The patient also admits to nausea and vomiting which started yesterday, and has largely resolved. Finally, the patient does admit to weight gain over the past week, totaling up to approximately 6 pounds. The patient is a never smoker, does not drink. He has no other acute complaints at this time. In the ED, the patient was found to have an elevated troponin with an EKG that did not demonstrate significant ischemic changes. A heparin drip was started Per cardiology, which was stopped this morning after evaluation of his clinical status by the primary team. A CTA of the chest/abdomen/pelvis demonstrated multifocal infiltrates likely pneumonia, with a large abdominis rectus hematoma with drainage into retroperitoneal space and pelvis. Past Med Surg Social Fam HX - Past Medical History Medical history: coronary artery disease, diabetes, hyperlipidemia, hypertension , kidney stones Psychiatric history: depression - Past Surgical History Surgical History: coronary bypass (CABG) - Social History Smoking Status: Never smoker Smokeless Tobacco Status: No Alcohol use: none Drug use: none - Family History Mother Living Status: Still Living Hx Family Cardiac Disorders: Yes (CAD s/p CABG in 70s) Hx Family Respiratory Disorders: Yes (copd) Hx Family Cancer: Yes (lung ca) Hx Family Endocrine Disorder: No Father Adopted: [place]: KRISTY PABLO Living Status: Age at : 60 Cause of : MYOCARDIAL INFARCTION Hx Family Cardiac Disorders: Yes ([place]) Hx Family Respiratory Disorders: No Hx Family Cancer: No Hx Family GI Disorders: No Hx Family Genitourinary Disorders: No Hx Family Endocrine Disorder: No Hx Family Musculoskeletal Disorders: No Hx Family Neuromuscular Disorders: No Hx Family Neurologic Disorders: No Hx Family HEENT Disorders: No Hx Family Autoimmune Disorders: No Hx Family Reproductive Disorders: No Hx Family Psychosocial Disorders: No Hx Family Medical Disorders: No Medications and Allergies Amlodipine Besylate 10 mg PO DAILY 04/15/17 [History] Citalopram [CeleXA] 20 mg PO DAILY 04/15/17 [History] Losartan Potassium [Cozaar] 50 mg PO DAILY 04/15/17 [History] Multivitamin [One Daily Essential] 1 each PO DAILY 04/15/17 [History] glipiZIDE [Glipizide] 10 mg PO DAILY 04/15/17 [History] metFORMIN [Glucophage] 500 mg PO BIDWM 04/15/17 [History] Aspirin 81 mg PO DAILY #30 tab.chew 04/17/17 [Rx] Carvedilol [Coreg] 12.5 mg PO BIDWM #120 tablet 04/17/17 [Rx] Nitroglycerin 0.4 mg SL Q5MIN #9 tab.subl 04/17/17 [Rx] Ticagrelor [Brilinta] 90 mg PO BID #60 tablet 04/17/17 [Rx] Atorvastatin Calcium [Lipitor] 20 mg PO HS 04/19/17 [History] 3 Allergy/AdvReac Type Severity Reaction Status Date / Time No Known Allergies Allergy Verified 04/15/17 05:36 All Systems: The remainder of the systems were reviewed and are negative Review of Systems: Constitutional: Denies fevers, chills, generalized fatigue. Admits to 6lb weight gain in one week Head/Neck: Denies ORTIZ, neck stiffness EENT: Denies vision changes/blurriness, rhinorrhea, congestion, sore throat CVS: Denies chest pain, palpitations, HENDRIX, orthopnea, edema, PND Pulm: Denies cough, sputum, hemoptysis, wheezing. Admits to significant shortness of breath at rest and with exertion GI: Admits to significant abdominal pain, swelling, bloating, and some nausea/ vomiting : Denies dysuria, increased frequency, urgency, hematuria Heme: Admits to history of "thin blood" even prior to use of anticoagulation Skin: Denies rashes, ulcers, color changes Neuro: Denies ORTIZ, paresthesias, focal deficits, ataxia Physical Examination Vital Signs: Vital Signs, Last 4 Hours Temp Pulse Resp BP Pulse Ox 04/20/17 12:30 102 F H 04/20/17 12:24 106 04/20/17 12:00 112 20 97/71 95 04/20/17 11:11 117 04/20/17 11:07 97 04/20/17 10:00 117 22 120/74 94 General appearance: appears uncomfortable (Acutely dyspneic) Eyes: nonicteric ENT: oropharynx moist Mallampati (class): 2 Neck: supple Effort: very labored Inspection: normal Auscultation: bilateral: diminished breath sounds (Poor inspiratory effort with prolonged expiratory phase. Challenging to auscultate all lobes of the lung due to positional intolerance) Cardiovascular: regular rate and rhythm (rapid) Gastrointestinal: normoactive bowel sounds (Rigid abdomen, tympanic to percussion), tender, other Integumentary: normal Extremities: no cyanosis, no edema, no clubbing, pulses normal Musculoskeletal: no deformities normal mental status, non-focal exam affect normal, anxious Results - Laboratory Findings CBC and BMP: 04/20/17 03:48 04/20/17 03:48 ABG ABG pH 7.52 pH Units (7.32-7.45) H 04/20/17 02:56 ABG pCO2 29 mmHg (35-45) L 04/20/17 02:56 ABG pO2 63 mmHg (85-104) L 04/20/17 02:56 ABG O2 Saturation 94 % (95-98) L 04/20/17 02:56 PT/INR, D-dimer PT 15.9 Seconds (9.4-12.1) H 04/20/17 03:48 Abnormal lab findings: Abnormal lab results Hgb 12.6 g/dL (12.9-16.9) L 04/20/17 03:48 Hct 36.4 % (37.5-50.1) L 04/20/17 03:48 MCV 80.4 fL (83.0-100.0) L 04/20/17 03:48 MCH 27.8 pg (28.0-33.3) L 04/20/17 03:48 Plt Count 121 K/mcL (140-400) L 04/20/17 03:48 Neutrophils # 9.9 K/mcL (1.6-8.9) H 04/20/17 03:48 Lymphocytes # 0.2 K/mcL (0.6-4.6) L 04/20/17 03:48 Nucleated RBCs/100 WBC 0.2 /100 WBC (0) H 04/20/17 03:48 PT 15.9 Seconds (9.4-12.1) H 04/20/17 03:48 APTT 55.1 Seconds (26.0-36.0) H D 04/20/17 03:48 ABG pH 7.52 pH Units (7.32-7.45) H 04/20/17 02:56 ABG pCO2 29 mmHg (35-45) L 04/20/17 02:56 ABG pO2 63 mmHg (85-104) L 04/20/17 02:56 ABG O2 Saturation 94 % (95-98) L 04/20/17 02:56 Sodium 125 mEq/L (136-145) L 04/20/17 03:48 Potassium 3.2 mEq/L (3.5-5.1) L 04/20/17 03:48 Chloride 91 mEq/L (98-107) L 04/20/17 03:48 Carbon Dioxide 22 mEq/L (23-29) L 04/20/17 03:48 BUN 31 mg/dL (8-23) H 04/20/17 03:48 Glucose 294 mg/dL (70-105) H 04/20/17 03:48 POC Glucose 291 (58-89) H 04/19/17 22:38 Calculated Osmolality 277 (280-300) L 04/20/17 03:48 Lactic Acid 2.5 mmol/L (0.5-2.2) H 04/19/17 20:44 Total Bilirubin 1.4 mg/dL (0.3-1.0) H 04/20/17 03:48 AST 61 Units/L (13-39) H 04/20/17 03:48 ALT 82 Units/L (7-52) H 04/20/17 03:48 Troponin I 2.83 ng/mL (< 0.04) H* 04/20/17 09:45 HDL Cholesterol 27 mg/dL (40-59) L 04/20/17 03:48 - Clinical Findings Intake & Output: Intake & Output 04/19/17 04/20/17 04/20/17 23:59 07:59 15:59 Intake Total 283 / 283 52 / 52 Output Total 1130 / 1130 300 / 300 Balance -847 / -847 -248 / -248 Weight 100.5 kg Consult Discharge Plan - Plan Referrals: Kannan Hurley DO [Primary Care Provider] - Juan Lake [Family Provider] - <Gely Tolbert M - Last Filed: 04/20/17 16:28> Date of Encounter: 04/20/17 All Systems: The remainder of the systems were reviewed and are negative Physical Examination Vital Signs: Vital Signs, Last 4 Hours Temp Pulse Resp BP Pulse Ox 04/20/17 16:15 100.6 F H 04/20/17 15:10 107 04/20/17 15:00 100.6 F H 106 30 107/87 94 04/20/17 13:00 99 30 92/43 93 04/20/17 12:30 102 F H 04/20/17 12:24 106 Results - Laboratory Findings CBC and BMP: 04/20/17 03:48 04/20/17 03:48 ABG ABG pH 7.52 pH Units (7.32-7.45) H 04/20/17 02:56 ABG pCO2 29 mmHg (35-45) L 04/20/17 02:56 ABG pO2 63 mmHg (85-104) L 04/20/17 02:56 ABG O2 Saturation 94 % (95-98) L 04/20/17 02:56 PT/INR, D-dimer PT 15.9 Seconds (9.4-12.1) H 04/20/17 03:48 Abnormal lab findings: Abnormal lab results Hgb 12.6 g/dL (12.9-16.9) L 04/20/17 03:48 Hct 36.4 % (37.5-50.1) L 04/20/17 03:48 MCV 80.4 fL (83.0-100.0) L 04/20/17 03:48 MCH 27.8 pg (28.0-33.3) L 04/20/17 03:48 Plt Count 121 K/mcL (140-400) L 04/20/17 03:48 Neutrophils # 9.9 K/mcL (1.6-8.9) H 04/20/17 03:48 Lymphocytes # 0.2 K/mcL (0.6-4.6) L 04/20/17 03:48 Nucleated RBCs/100 WBC 0.2 /100 WBC (0) H 04/20/17 03:48 PT 15.9 Seconds (9.4-12.1) H 04/20/17 03:48 APTT 55.1 Seconds (26.0-36.0) H D 04/20/17 03:48 ABG pH 7.52 pH Units (7.32-7.45) H 04/20/17 02:56 ABG pCO2 29 mmHg (35-45) L 04/20/17 02:56 ABG pO2 63 mmHg (85-104) L 04/20/17 02:56 ABG O2 Saturation 94 % (95-98) L 04/20/17 02:56 Sodium 125 mEq/L (136-145) L 04/20/17 03:48 Potassium 3.2 mEq/L (3.5-5.1) L 04/20/17 03:48 Chloride 91 mEq/L (98-107) L 04/20/17 03:48 Carbon Dioxide 22 mEq/L (23-29) L 04/20/17 03:48 BUN 31 mg/dL (8-23) H 04/20/17 03:48 Glucose 294 mg/dL (70-105) H 04/20/17 03:48 POC Glucose 291 (58-89) H 04/19/17 22:38 Calculated Osmolality 277 (280-300) L 04/20/17 03:48 Lactic Acid < 0.2 mmol/L (0.5-2.2) L 04/20/17 13:27 Total Bilirubin 1.4 mg/dL (0.3-1.0) H 04/20/17 03:48 AST 61 Units/L (13-39) H 04/20/17 03:48 ALT 82 Units/L (7-52) H 04/20/17 03:48 Troponin I 2.83 ng/mL (< 0.04) H* 04/20/17 09:45 HDL Cholesterol 27 mg/dL (40-59) L 04/20/17 03:48 - Clinical Findings Intake & Output: Intake & Output 04/20/17 04/20/17 04/20/17 07:59 15:59 23:59 Intake Total 283 / 283 62 / 62 Output Total 1130 / 1130 450 / 450 Balance -847 / -847 -388 / -388 Weight 100.5 kg - Attending Attestation I examined this patient and my medical decision-making was reviewed with the Resident Physician. I agree with the documented findings, disposition and treatment plan as described except to the extent set forth below. Patient seen and examined. Labs, radiology, chart personally reviewed. 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 Pulmonary: Patient with respiratory distress, I have explained to him in the presence of his family about noninvasive ventilation versus mechanical intubation and he is in agreement to try noninvasive route first. Decompression of the abdomen with nasogastric tube and was some improvement. Patient continued to have abdominal pain and cold to control his pain otherwise his healthcare associated pneumonia will worsen with atelectasis from the pain. Patient needs to be nothing by mouth and to understand due to his cardiovascular situation he might be high risk. Patient to remain in ICU for close monitoring because his condition could deteriorate as examination. Cardiovascular: Cardiology follow-up GI: Nutrition per dietary and GI prophylaxis per routine Heme: DVT prophylaxis per routine ID: Continue antibiotics and plan to de-escalation Renal; urine out put and renal funtion reviewed Endorcine: blood glucose is monitored Lines: all lines checked and no evidence of infections Skin: skin care to prevent pressure ulcers per nursing routine care I spent 40 min of Critical Care time with this patient. It involved decision making of high complexity to assess, manipulate, and support vital organ system failure and/or to prevent further life threatening deterioration of the patient' s condition. The time involved in the performance of separately reportable procedures was not counted toward critical care time.
--- NOTE | 2017-04-20 14:26 | Cardiology Consult Note ---
Date of Encounter: 04/20/17 Time of Encounter: 14:19 Assessment and Plan Discussion w patient/family: NSTEMI with elevated troponins likely demand ischemia Vs Stent thrombosis less likely. Patient with large hematoma in the rectus sheath possibly extending retro peritoneal possibly causing peritonitis and acute abdomen. Will consult Surgery. Patient high risk for stent thrombosis if brilinta stopped. No plan for LHC at this time. Rectus sheath hematoma with possible peritonitis and acute abdomen. Consult surgery Multilobular consolidation possibly pneumonia and resp insufficiency. PCCM consult for impending resp failure and need for intubation LUE swelling and pain possible infections The assessment and plan as outlined above was discussed with the patient and/or family members who expressed understanding and agreement. All questions were answered. Thank you for involving us in the care of your patient. Please call with any questions. History of Present Illness Consult date: 04/20/17 Consult reason: Elevated troponin Chief complaint: Abdominal pain and SOB History of present illness: Mr. Jarvis is a 61 year old male with h/o CABG, s/p PCI a week ago to the [facility] after SVG to [facility] severely diseased diffusely. Mild elevation of trops up to 2.8 at this time with non specific ST changes. Patient was intially complaining of left UE pain and swelling possibly from a previous week ago IV line. He then started noticing abdominal pain and difficulty breathing. He currently is in respiratory insufficiency with a RR of >30. BP is borderline also at this time likely as a result of sepsis impending septic shock. He currently denies any CP. Past Med Surg Social Fam HX - Past Medical History Medical history: coronary artery disease, diabetes, hyperlipidemia, hypertension , kidney stones Psychiatric history: depression - Past Surgical History Surgical History: coronary bypass (CABG) - Social History Smoking Status: Never smoker Smokeless Tobacco Status: No Alcohol use: none Drug use: none - Family History Mother Living Status: Still Living Hx Family Cardiac Disorders: Yes (CAD s/p CABG in 70s) Hx Family Respiratory Disorders: Yes (copd) Hx Family Cancer: Yes (lung ca) Hx Family Endocrine Disorder: No Father Adopted: [place]: KRISTY JARVIS Living Status: Age at : 60 Cause of : MYOCARDIAL INFARCTION Hx Family Cardiac Disorders: Yes ([place]) Hx Family Respiratory Disorders: No Hx Family Cancer: No Hx Family GI Disorders: No Hx Family Genitourinary Disorders: No Hx Family Endocrine Disorder: No Hx Family Musculoskeletal Disorders: No Hx Family Neuromuscular Disorders: No Hx Family Neurologic Disorders: No Hx Family HEENT Disorders: No Hx Family Autoimmune Disorders: No Hx Family Reproductive Disorders: No Hx Family Psychosocial Disorders: No Hx Family Medical Disorders: No Medications and Allergies Amlodipine Besylate 10 mg PO DAILY 04/15/17 [History] Citalopram [CeleXA] 20 mg PO DAILY 04/15/17 [History] Losartan Potassium [Cozaar] 50 mg PO DAILY 04/15/17 [History] Multivitamin [One Daily Essential] 1 each PO DAILY 04/15/17 [History] glipiZIDE [Glipizide] 10 mg PO DAILY 04/15/17 [History] metFORMIN [Glucophage] 500 mg PO BIDWM 04/15/17 [History] Aspirin 81 mg PO DAILY #30 tab.chew 04/17/17 [Rx] Carvedilol [Coreg] 12.5 mg PO BIDWM #120 tablet 04/17/17 [Rx] Nitroglycerin 0.4 mg SL Q5MIN #9 tab.subl 04/17/17 [Rx] Ticagrelor [Brilinta] 90 mg PO BID #60 tablet 04/17/17 [Rx] Atorvastatin Calcium [Lipitor] 20 mg PO HS 04/19/17 [History] 3 Allergy/AdvReac Type Severity Reaction Status Date / Time No Known Allergies Allergy Verified 04/15/17 05:36 All Systems Review: The remainder of the systems were reviewed and are negative Physical Examination Vital Signs, Last 4 Hours Temp Pulse Resp BP Pulse Ox 04/20/17 12:30 102 F H 04/20/17 12:24 106 04/20/17 12:00 112 20 97/71 95 04/20/17 11:11 117 04/20/17 11:07 97 General: Conversant, No Apparent Distress HEENT: Atraumatic, Normocephaly, Mucus Membranes Moist Neck: No JVD, Normal carotid pulses Cardiac: Reg Rate and Rhythm, Normal S1 and S2, No Murmur Lungs: Normal Breath Sounds, No Wheeze, Rales, Rhonchi (bibasilar and scattered rhonchi) Neuro: Alert and responsive, No focal deficits noted Abdomen: Soft, Non-Tender, Other (Firm, Tender to palpation with guarding ) Skin: No rashes noted on visualized skin Musculoskeletal: No Chest Wall Tenderness Extremities: No Clubbing, No Cyanosis, No Edema, Normal Pulses, Other (swelling of the left UE ) Results 04/20/17 03:48 04/20/17 03:48 Lab Results 04/20/17 04/20/17 04/20/17 03:48 03:48 03:48 WBC 10.9 Hgb 12.6 L Hct 36.4 L Plt Count 121 L INR APTT 55.1 H D Sodium Potassium Chloride Carbon Dioxide BUN Creatinine Glucose Calcium Magnesium Total Bilirubin AST ALT Alkaline Phosphatase Troponin I 1.86 H* B-Natriuretic Peptide 04/20/17 04/20/17 04/20/17 03:48 03:48 03:48 WBC Hgb Hct Plt Count INR 1.5 APTT Sodium 125 L Potassium 3.2 L Chloride 91 L Carbon Dioxide 22 L BUN 31 H Creatinine 1.20 Glucose 294 H Calcium 9.0 Magnesium 1.6 Total Bilirubin 1.4 H AST 61 H ALT 82 H Alkaline Phosphatase 63 Troponin I B-Natriuretic Peptide 73 04/20/17 09:45 WBC Hgb Hct Plt Count INR APTT Sodium Potassium Chloride Carbon Dioxide BUN Creatinine Glucose Calcium Magnesium Total Bilirubin AST ALT Alkaline Phosphatase Troponin I 2.83 H* B-Natriuretic Peptide Consult Discharge Plan - Plan Referrals: Kannan Hurley DO [Primary Care Provider] - Juan Lake [Family Provider] -
--- NOTE | 2017-04-20 14:47 | General Surgery Consult Note ---
<MontezumaFreda Jagdeep - Last Filed: 04/20/17 14:44> Date of Encounter: 04/20/17 Time of Encounter: 14:15 Assessment and Plan (1) Hematoma Current Visit: Yes Status: Acute CTA- There is a large hematoma noted along the deep margin of the right abdominis rectus muscle, more pronounced towards the pelvis, with associated areas of extraperitoneal hemorrhage in the pelvis, asymmetric towards the right. No areas of active bleeding are identified. No general surgical intervention indicated at this time May consider right groin US if concern for a pseudoaneurysm from recent cardiac cath. Monitor Hgb/Hct (currently stable) (2) Abdominal pain Current Visit: Yes Status: Acute Suspect that the patients abdominal pain is related to hematoma No evidence of peritonitis No general surgical intervention indicated at this time Recommendations for treatment of likely ileus secondary to hematoma Supportive care and pain control Qualifiers: Abdominal location: periumbilical Qualified Code(s): R10.33 - Periumbilical pain (3) Ileus Current Visit: Yes Status: Acute Maintain bowel rest Hold PO medications NG tube to LIWS Monitor bowel function and abdominal exams Will continue to follow and assess progress (4) NSTEMI (non-ST elevated myocardial infarction) Current Visit: No Status: Acute s/p PTCA/Drug-Eluting Stent placement in the proximal Circ. S/P CABG 2 of [address] grafts [address] Dr[address] Wallace on 04/16/17 Cardiology consulted (5) Diabetes mellitus Current Visit: No Status: Chronic Management per medicine service Qualifiers: Diabetes mellitus type: type 2 Diabetes mellitus complication status: with unspecified complications Diabetes mellitus terminal computer operator insulin use: without terminal computer operator use Qualified Code(s): E11.8 - Type 2 diabetes mellitus with unspecified complications (6) Essential (primary) hypertension Current Visit: No Status: Chronic currently mildly hypotensive Management per medicine service (7) Coronary artery disease Current Visit: No Status: Chronic Qualifiers: Coronary Disease-Associated Artery/Lesion type: [place] artery [place] vs. transplanted heart: [place] heart Associated angina: with other forms of angina Qualified Code(s): I25.118 - Atherosclerotic heart disease of [place] coronary artery with other forms of angina pectoris (8) Hyperlipidemia Current Visit: No Status: Chronic Qualifiers: Hyperlipidemia type: unspecified Qualified Code(s): E78.5 - Hyperlipidemia , unspecified (9) Acute respiratory failure with hypoxia Current Visit: Yes Status: Acute suspect secondary to bilateral HCAP pneumonia Pulmonary/critical care following Support with BIPAP Antibiotics- Cefepime, Vancomycin, Levaquin History of Present Illness Consult date: 04/20/17 Reason for consult: abdominal pain Requesting physician: Segundo Fairbanks History of present illness: Mr. Pablo is a 61 year old male with a recent history of a non-STEMI. He is s /p a LEFT HEART CATH W/ GRAFTS Stent w/ PTCA Single Major Vessel with Dr. Wallace on 04/16/17 (4 days ago). He was discharged to home and reported back to the hospital with acute onset of shortness of breath and abdominal pain. His symptoms have continued to progress during his hospitalization. He is being treated for bilateral pneumonia. He does complain of central abdominal pain which has progressively worsened over the past 24 hours. He describes it as a constant pain and rates it as a 7/10. He has never experienced pain like this in the past. He reports nausea and vomiting last evening but states that this has improved today. He admits to feeling bloated. He is passing flatus and he did have a normal bowel movement 04/19/17. Denies any difficulty with urination. He has had a CT scan which shows evidence of a large hematoma noted along the deep margin of the right abdominis rectus muscle, more pronounced towards the pelvis, with associated areas of extraperitoneal hemorrhage in the pelvis, asymmetric towards the right. No areas of active bleeding are identified. We have been asked to see and evaluate the patient for recommendations. Past Med Surg Social Fam HX - Past Medical History Source: patient, old records reviewed Medical history: coronary artery disease, diabetes, hyperlipidemia, hypertension , kidney stones, myocardial infarction (Non-STEMI 03/2017 most recent) Psychiatric history: depression - Past Surgical History Surgical History: angioplasty/stent (04/16/[address] Wallace), appendectomy, coronary bypass (CABG) (2012) - Social History Smoking Status: Never smoker Smokeless Tobacco Status: No Alcohol use: none Drug use: none Current living situation: Home - Independent Activity Level: Independent ambulation - Family History Mother Living Status: Still Living Hx Family Cardiac Disorders: Yes (CAD s/p CABG in 70s) Hx Family Respiratory Disorders: Yes (copd) Hx Family Cancer: Yes (lung ca) Hx Family Endocrine Disorder: No Father Adopted: [place]: KRISTY PABLO Living Status: Age at : 60 Cause of : MYOCARDIAL INFARCTION Hx Family Cardiac Disorders: Yes ([place]) Hx Family Respiratory Disorders: No Hx Family Cancer: No Hx Family GI Disorders: No Hx Family Genitourinary Disorders: No Hx Family Endocrine Disorder: No Hx Family Musculoskeletal Disorders: No Hx Family Neuromuscular Disorders: No Hx Family Neurologic Disorders: No Hx Family HEENT Disorders: No Hx Family Autoimmune Disorders: No Hx Family Reproductive Disorders: No Hx Family Psychosocial Disorders: No Hx Family Medical Disorders: No Medications and Allergies Amlodipine Besylate 10 mg PO DAILY 04/15/17 [History] Citalopram [CeleXA] 20 mg PO DAILY 04/15/17 [History] Losartan Potassium [Cozaar] 50 mg PO DAILY 04/15/17 [History] Multivitamin [One Daily Essential] 1 each PO DAILY 04/15/17 [History] glipiZIDE [Glipizide] 10 mg PO DAILY 04/15/17 [History] metFORMIN [Glucophage] 500 mg PO BIDWM 04/15/17 [History] Aspirin 81 mg PO DAILY #30 tab.chew 04/17/17 [Rx] Carvedilol [Coreg] 12.5 mg PO BIDWM #120 tablet 04/17/17 [Rx] Nitroglycerin 0.4 mg SL Q5MIN #9 tab.subl 04/17/17 [Rx] Ticagrelor [Brilinta] 90 mg PO BID #60 tablet 04/17/17 [Rx] Atorvastatin Calcium [Lipitor] 20 mg PO HS 04/19/17 [History] 3 Allergy/AdvReac Type Severity Reaction Status Date / Time No Known Allergies Allergy Verified 04/15/17 05:36 Review of Systems All systems PM: reviewed and no additional remarkable complaints except as stated (in the HPI) All systems PM: The remainder of the systems were reviewed and are negative General Surgery Exam Initial Vital Signs Temp Pulse Resp BP Pulse Ox 98.2 F 103 20 125/84 92 04/19/17 19:20 04/19/17 19:20 04/19/17 19:20 04/19/17 19:20 04/19/17 19:20 - General physical appearance well developed, well nourished, moderate distress, moderate pain - Eyes PERRL, normal ocular movement - ENT normal mucosa, atraumatic, normocephalic - Neck trachea midline - Respiratory other (Patient on bipap support; diminished breath sounds bilateral) - Cardiovascular Cardiovascular exam: Present: tachycardia - Abdomen Abdomen general surgery: Present: bowel sounds present, soft, distended, tender (periumbilical) - Incision Incision: Present: clean and dry (right groin cath site), intact - Integumentary Integumentary general surgery: Present: warm and dry - Neurologic Present: CN 2-12 grossly intact - Musculoskeletal Present: other (Unable to assess) - Psychiatric Psychiatric general surgery: Present: A&Ox3 - Additional Findings RLE- DP and PT pulses positive by doppler LLE- DP and PT palpable Exam Initial Vital Signs Temp Pulse Resp BP Pulse Ox 98.2 F 103 20 125/84 92 04/19/17 19:20 04/19/17 19:20 04/19/17 19:20 04/19/17 19:20 04/19/17 19:20 Results - Labs 04/20/17 03:48 04/20/17 03:48 Abnormal lab results Hgb 12.6 g/dL (12.9-16.9) L 04/20/17 03:48 Hct 36.4 % (37.5-50.1) L 04/20/17 03:48 MCV 80.4 fL (83.0-100.0) L 04/20/17 03:48 MCH 27.8 pg (28.0-33.3) L 04/20/17 03:48 Plt Count 121 K/mcL (140-400) L 04/20/17 03:48 Neutrophils # 9.9 K/mcL (1.6-8.9) H 04/20/17 03:48 Lymphocytes # 0.2 K/mcL (0.6-4.6) L 04/20/17 03:48 Nucleated RBCs/100 WBC 0.2 /100 WBC (0) H 04/20/17 03:48 PT 15.9 Seconds (9.4-12.1) H 04/20/17 03:48 APTT 55.1 Seconds (26.0-36.0) H D 04/20/17 03:48 ABG pH 7.52 pH Units (7.32-7.45) H 04/20/17 02:56 ABG pCO2 29 mmHg (35-45) L 04/20/17 02:56 ABG pO2 63 mmHg (85-104) L 04/20/17 02:56 ABG O2 Saturation 94 % (95-98) L 04/20/17 02:56 Sodium 125 mEq/L (136-145) L 04/20/17 03:48 Potassium 3.2 mEq/L (3.5-5.1) L 04/20/17 03:48 Chloride 91 mEq/L (98-107) L 04/20/17 03:48 Carbon Dioxide 22 mEq/L (23-29) L 04/20/17 03:48 BUN 31 mg/dL (8-23) H 04/20/17 03:48 Glucose 294 mg/dL (70-105) H 04/20/17 03:48 POC Glucose 291 (58-89) H 04/19/17 22:38 Calculated Osmolality 277 (280-300) L 04/20/17 03:48 Lactic Acid < 0.2 mmol/L (0.5-2.2) L 04/20/17 13:27 Total Bilirubin 1.4 mg/dL (0.3-1.0) H 04/20/17 03:48 AST 61 Units/L (13-39) H 04/20/17 03:48 ALT 82 Units/L (7-52) H 04/20/17 03:48 Troponin I 2.83 ng/mL (< 0.04) H* 04/20/17 09:45 HDL Cholesterol 27 mg/dL (40-59) L 04/20/17 03:48 Diabetes panel 04/20/17 Range/Units 03:48 Sodium 125 L (136-145) mEq/L Potassium 3.2 L (3.5-5.1) mEq/L Chloride 91 L (98-107) mEq/L Carbon Dioxide 22 L (23-29) mEq/L BUN 31 H (8-23) mg/dL Creatinine 1.20 (0.70-1.30) mg/dL Glucose 294 H (70-105) mg/dL Calcium 9.0 (8.6-10.3) mg/dL AST 61 H (13-39) Units/L ALT 82 H (7-52) Units/L Alkaline Phosphatase 63 (34-104) Units/L Albumin 3.9 (3.5-5.7) g/dL Triglycerides 135 (< 150) mg/dL HDL Cholesterol 27 L (40-59) mg/dL Calcium panel 04/20/17 Range/Units 03:48 Calcium 9.0 (8.6-10.3) mg/dL Phosphorus 2.7 (2.7-4.5) mg/dL Albumin 3.9 (3.5-5.7) g/dL Pituitary panel 04/20/17 Range/Units 03:48 Sodium 125 L (136-145) mEq/L Potassium 3.2 L (3.5-5.1) mEq/L Chloride 91 L (98-107) mEq/L Carbon Dioxide 22 L (23-29) mEq/L BUN 31 H (8-23) mg/dL Creatinine 1.20 (0.70-1.30) mg/dL Glucose 294 H (70-105) mg/dL Calcium 9.0 (8.6-10.3) mg/dL Adrenal panel 04/20/17 Range/Units 03:48 Sodium 125 L (136-145) mEq/L Potassium 3.2 L (3.5-5.1) mEq/L Chloride 91 L (98-107) mEq/L Carbon Dioxide 22 L (23-29) mEq/L BUN 31 H (8-23) mg/dL Creatinine 1.20 (0.70-1.30) mg/dL Glucose 294 H (70-105) mg/dL Calcium 9.0 (8.6-10.3) mg/dL Total Bilirubin 1.4 H (0.3-1.0) mg/dL AST 61 H (13-39) Units/L ALT 82 H (7-52) Units/L Alkaline Phosphatase 63 (34-104) Units/L Albumin 3.9 (3.5-5.7) g/dL All other labs normal. - Imaging Additional studies: Chest X-Ray 04/19/17 19:26 IMPRESSION: No acute process. D/ / Segundo Vargas MD / Segundo Vargas MD Interpreting Provider: Segundo Vargas MD Abdomen/Pelvis CTA 04/20/17 08:21 IMPRESSION: 1. There is a large hematoma noted along the deep margin of the right abdominis rectus muscle, more pronounced towards the pelvis, with associated areas of extraperitoneal hemorrhage in the pelvis, asymmetric towards the right. No areas of active bleeding are identified. 2. Multifocal nodular consolidations are noted throughout both lungs, likely related to pneumonia with associated small bilateral pleural effusions. Metastatic disease is considered less likely. Follow-up examination in 1-2 months is recommended. 3. Indeterminate hypervascular lesion in the right lobe of the liver measuring 1.1 x 1.5 cm (series 8, image 66). 4. Minimal fatty infiltration liver. 5. Benign right adrenal adenoma. 6. Colonic diverticulosis. 7. Enlarged prostate gland. 8. There are sclerotic lesions in the sacrum, L5, and T6 vertebral bodies which are most likely related to benign bone islands. Attention on follow-up imaging is recommended. 9. Extensive atherosclerotic disease. No evidence of an aortic dissection. 10. Gallstones without adjacent inflammatory changes. D/ / 04/20/2017 09:31:20 Rey Fletcher MD / chase Interpreting Provider: Rey Fletcher MD Chest CTA 04/20/17 08:21 IMPRESSION: 1. There is a large hematoma noted along the deep margin of the right abdominis rectus muscle, more pronounced towards the pelvis, with associated areas of extraperitoneal hemorrhage in the pelvis, asymmetric towards the right. No areas of active bleeding are identified. 2. Multifocal nodular consolidations are noted throughout both lungs, likely related to pneumonia with associated small bilateral pleural effusions. Metastatic disease is considered less likely. Follow-up examination in 1-2 months is recommended. 3. Indeterminate hypervascular lesion in the right lobe of the liver measuring 1.1 x 1.5 cm (series 8, image 66). 4. Minimal fatty infiltration liver. 5. Benign right adrenal adenoma. 6. Colonic diverticulosis. 7. Enlarged prostate gland. 8. There are sclerotic lesions in the sacrum, L5, and T6 vertebral bodies which are most likely related to benign bone islands. Attention on follow-up imaging is recommended. 9. Extensive atherosclerotic disease. No evidence of an aortic dissection. 10. Gallstones without adjacent inflammatory changes. D/ / 04/20/2017 09:31:20 Rey Fletcher MD / chase Interpreting Provider: Rey Fletcher MD Consult Discharge Plan - Plan Referrals: Kannan Hurley DO [Primary Care Provider] - Juan Lake [Family Provider] - - Attending Attestation For this encounter, I have reviewed the FASHION DIRECTOR or PA documentation, treatment plan, and medical decision making; and I have had face to face time with this patient. <DavidColin J - Last Filed: 04/20/17 19:19> Date of Encounter: 04/20/17 Review of Systems All systems PM: The remainder of the systems were reviewed and are negative General Surgery Exam Initial Vital Signs Temp Pulse Resp BP Pulse Ox 98.2 F 103 20 125/84 92 04/19/17 19:20 04/19/17 19:20 04/19/17 19:20 04/19/17 19:20 04/19/17 19:20 Exam Initial Vital Signs Temp Pulse Resp BP Pulse Ox 98.2 F 103 20 125/84 92 04/19/17 19:20 04/19/17 19:20 04/19/17 19:20 04/19/17 19:20 04/19/17 19:20 Results - Labs 04/20/17 03:48 04/20/17 03:48 Abnormal lab results Hgb 12.6 g/dL (12.9-16.9) L 04/20/17 03:48 Hct 36.4 % (37.5-50.1) L 04/20/17 03:48 MCV 80.4 fL (83.0-100.0) L 04/20/17 03:48 MCH 27.8 pg (28.0-33.3) L 04/20/17 03:48 Plt Count 121 K/mcL (140-400) L 04/20/17 03:48 Neutrophils # 9.9 K/mcL (1.6-8.9) H 04/20/17 03:48 Lymphocytes # 0.2 K/mcL (0.6-4.6) L 04/20/17 03:48 Nucleated RBCs/100 WBC 0.2 /100 WBC (0) H 04/20/17 03:48 PT 15.9 Seconds (9.4-12.1) H 04/20/17 03:48 APTT 55.1 Seconds (26.0-36.0) H D 04/20/17 03:48 ABG pH 7.48 pH Units (7.32-7.45) H 04/20/17 17:59 ABG pCO2 27 mmHg (35-45) L 04/20/17 17:59 ABG pO2 127 mmHg (85-104) H 04/20/17 17:59 ABG HCO3 20 mEq/L (21-27) L 04/20/17 17:59 ABG O2 Saturation 99 % (95-98) H 04/20/17 17:59 Sodium 125 mEq/L (136-145) L 04/20/17 03:48 Potassium 3.2 mEq/L (3.5-5.1) L 04/20/17 03:48 Chloride 91 mEq/L (98-107) L 04/20/17 03:48 Carbon Dioxide 22 mEq/L (23-29) L 04/20/17 03:48 BUN 31 mg/dL (8-23) H 04/20/17 03:48 Glucose 294 mg/dL (70-105) H 04/20/17 03:48 POC Glucose 291 (58-89) H 04/19/17 22:38 Calculated Osmolality 277 (280-300) L 04/20/17 03:48 Lactic Acid < 0.2 mmol/L (0.5-2.2) L 04/20/17 13:27 Total Bilirubin 1.4 mg/dL (0.3-1.0) H 04/20/17 03:48 AST 61 Units/L (13-39) H 04/20/17 03:48 ALT 82 Units/L (7-52) H 04/20/17 03:48 Troponin I 4.53 ng/mL (< 0.04) H* 04/20/17 16:05 HDL Cholesterol 27 mg/dL (40-59) L 04/20/17 03:48 Staphylococcus sp PCR DETECTED (Not Detect) A 04/20/17 03:48 Staph aureus (PCR) DETECTED (Not Detect) A 04/20/17 03:48 Diabetes panel 04/20/17 Range/Units 03:48 Sodium 125 L (136-145) mEq/L Potassium 3.2 L (3.5-5.1) mEq/L Chloride 91 L (98-107) mEq/L Carbon Dioxide 22 L (23-29) mEq/L BUN 31 H (8-23) mg/dL Creatinine 1.20 (0.70-1.30) mg/dL Glucose 294 H (70-105) mg/dL Calcium 9.0 (8.6-10.3) mg/dL AST 61 H (13-39) Units/L ALT 82 H (7-52) Units/L Alkaline Phosphatase 63 (34-104) Units/L Albumin 3.9 (3.5-5.7) g/dL Triglycerides 135 (< 150) mg/dL HDL Cholesterol 27 L (40-59) mg/dL Calcium panel 04/20/17 Range/Units 03:48 Calcium 9.0 (8.6-10.3) mg/dL Phosphorus 2.7 (2.7-4.5) mg/dL Albumin 3.9 (3.5-5.7) g/dL Pituitary panel 04/20/17 Range/Units 03:48 Sodium 125 L (136-145) mEq/L Potassium 3.2 L (3.5-5.1) mEq/L Chloride 91 L (98-107) mEq/L Carbon Dioxide 22 L (23-29) mEq/L BUN 31 H (8-23) mg/dL Creatinine 1.20 (0.70-1.30) mg/dL Glucose 294 H (70-105) mg/dL Calcium 9.0 (8.6-10.3) mg/dL Adrenal panel 04/20/17 Range/Units 03:48 Sodium 125 L (136-145) mEq/L Potassium 3.2 L (3.5-5.1) mEq/L Chloride 91 L (98-107) mEq/L Carbon Dioxide 22 L (23-29) mEq/L BUN 31 H (8-23) mg/dL Creatinine 1.20 (0.70-1.30) mg/dL Glucose 294 H (70-105) mg/dL Calcium 9.0 (8.6-10.3) mg/dL Total Bilirubin 1.4 H (0.3-1.0) mg/dL AST 61 H (13-39) Units/L ALT 82 H (7-52) Units/L Alkaline Phosphatase 63 (34-104) Units/L Albumin 3.9 (3.5-5.7) g/dL All other labs normal. - Attending Attestation I have personally seen and examined the patient. I have reviewed pertinent labs , imaging, progress notes, including this one. I agree with the above assessment and plan.
[2017-04-20] MEDS: Dexmedetomidine HCl 400 MCG/100 ML MLS IVC SCH (15:36)
[2017-04-20] MEDS ORDERED: *HR* FentaNYL (PF) 100 MCG/2 ML VIAL IVP ONE (15:36)
--- NOTE | 2017-04-20 17:17 | Procedure Note ---
<Segundo Fairbanks - Last Filed: 04/20/17 17:14> Date of procedure: 04/20/17 Pre-op diagnosis: hypoxic respiratory failure Post-op diagnosis: same Procedure: Procedure: Endotracheal intubation Date: 04/20/17 Time: 1705 Press Operator Carbon Blocks: Segundo Fairbanks DO Attending: Gely Tolbert MD Indication: Hypoxic respiratory failure The patient was placed in supine position. All equipment was checked and operational before beginning the procedure. Sedation was obtained using Vesed and etomidate. The patient was easily ventilated using an Ambu bag. There are laryngoscope using a Mac 3 blade with glidescope was inserted into the oropharynx at which time a grade 1 view of the vocal cords was visualized. A 7.5 [place] endotracheal tube was inserted and visualized going through the cords. The stylet was removed. Colorimetric change was visualized on the CO2 meter. Breath sounds were heard in both lung [place]. There were no breast breath sounds auscultated over the stomach. The endotracheal tube was placed at 22 cm at the lip line. Attending physician Dr. Tolbert was in attendance throughout the entirety of the procedures. A chest x-ray was ordered afterwards to assess for pneumothorax and placement of the endotracheal tube. The patient tolerated the procedure well without desaturation or hemodynamic compromise. Anesthesia: IV sedation Surgeon: Segundo Fairbanks Was there an transition assistant present: Yes Vehicle Safety Inspector: Geyl Tolbert Estimated blood loss (cc): 0 Specimen: n/a Condition: critical Disposition: ICU <Gely Tolbert - Last Filed: 04/20/17 17:29> Procedure: I examined this patient and my medical decision-making was reviewed with the Resident Physician. I agree with the documented findings, disposition and treatment plan as described except to the extent set forth below. I personal supervised resident intubating patient without immediate complications. Patient received 20 mg of Etimotide and 5 mg of Versed.
[2017-04-20] MEDS ORDERED: Lacri-Lube 3.5 GM TUBE BOTH EYES PRN (17:18)
[2017-04-20] MEDS ORDERED: *HR* Midazolam HCl 2 MG/2 ML VIAL IVP ONE (17:20)
[2017-04-20] MEDS ORDERED: 0.9 % Sodium Chloride 1,000 ML ONE (17:28)
[2017-04-20 18:05] LABS: ABG Base Excess -2 mEq/L (-2 to 3); ABG HCO3 20 mEq/L (21-27); ABG Oxygen Saturation 99 % (95-98); ABG PCO2 27 mmHg (35-45); ABG PH 7.48 pH Units (7.32-7.45); ABG PO2 127 mmHg (85-104); ABG TCO2 21 mEq/L (20-26); Blood Gas Modality VC; Blood Gas PEEP 5 cm H2O; Blood Gas Respiration Rate 14; Blood Gas VT 500 cc
[2017-04-20 18:40] LABS: Acinetobacter baumannii by PCR Not Detected (Not Detect); Candida albicans by PCR Not Detected (Not Detect); Candida glabrata by PCR Not Detected (Not Detect); Enterococcus by PCR Not Detected (Not Detect); Escherichia coli by PCR Not Detected (Not Detect); Klebsiella oxytoca by PCR Not Detected (Not Detect); Klebsiella pneumoniae by PCR Not Detected (Not Detect); Pseudomonas aeruginosa by PCR Not Detected (Not Detect); Serratia marcescens by PCR Not Detected (Not Detect); Streptococcus agalactiae(B)PCR Not Detected (Not Detect); Streptococcus by PCR Not Detected (Not Detect); Streptococcus pneumoniae PCR Not Detected (Not Detect); Streptococcus pyogenes (A) PCR Not Detected (Not Detect); blaKPC Carbapenem-Resist Gene Not Detected (Not Detect); mecA Methicillin-Resist Gene Not Detected (Not Detect); vanA/B Vancomycin-Resist Genes Not Detected (Not Detect)
[2017-04-20 18:41] LABS: Candida krusei by PCR Not Detected (Not Detect); Candida parapsilosis by PCR Not Detected (Not Detect); Candida tropicalis by PCR Not Detected (Not Detect); Staphylococcus aureus by PCR ***DETECTED*** (Not Detect)
--- NOTE | 2017-04-20 20:12 | Electrocardiograph Report ---
[place] [id number] Test Date: 2017-04-19 Pat Name: Umberto Jarvis Department: 104 Room: 04 Gender: M Director Of Athletics: RANDA : 1955 Requested By: Jason Monterroso Order Number: [id number] Reading MD: Pedro Frederick DO Measurements Intervals [place] Rate: 102 P: 8 FL: 144 QRS: -28 QRSD: 113 T: 119 QT: 365 QTc: 424 Interpretive Statements SINUS TACHYCARDIA POSSIBLE LEFT ATRIAL ENLARGEMENT BORDERLINE LEFT AXIS DEVIATION INCOMPLETE RIGHT BUNDLE BRANCH BLOCK LEFT VENTRICULAR HYPERTROPHY AND ST-T CHANGE Electronically Signed On 04-20-2017 20:10:55 EST by Pedro Frederick DO
[2017-04-20] MEDS ORDERED: Acetaminophen IV 1,000 MG/100 ML INFUS..BTL IVPB ONE (20:20)
[2017-04-20] MEDS ORDERED: Insulin LISPRO 300 UNITS/3 ML VIAL SQ SCH (21:00)
--- NOTE | 2017-04-20 21:08 | Procedure Note ---
Date of procedure: 04/20/17 Pre-op diagnosis: septic shock Post-op diagnosis: same Procedure: Left Subclavian Central Venous Catheter Insertion Patient was intubated. Prepped and draped in the usual fashion. A brief time out was held identifying correct patient, pathology, procedure, and physician. I started by injecting a local anesthetic. I then placed the patient in trendelenberg. I used the needle to puncture the skin and identify the clavicle. I then pushed the needle beneath the clavicle. I was able to get a flash of blood within the syringe. I then removed the syringe and inserted the guidewire. Using seldinger technique I was able to remove the needle. I then used a scalpel (10blade) the incise the skin and used the dilator to create a tract. Then using seldinger technqiue I threaded the catheter over the wire then removed the wire. I was able to flush and aspirate all lines. I then secured the line to the skin using 3-0 silk suture. I checked the lines again and all were able to flush and aspirate. I then applied the skin disc followed by the tegaderm for dressing. I then concluded the procedure, disgarded my sharps. The patient tolerated the procedure well. I then followed up with the post procedure chest x ray. there was no pneumothorax and the catheter was at the atria-caval junction. Anesthesia: local Surgeon: Colin Hernandez Was there an research assistant member present: No Estimated blood loss (cc): 2 Specimen: none Pathology: none sent Condition: stable Disposition: PACU
[2017-04-20] MEDS ORDERED: methylPREDNISolone 125 MG/2 ML VIAL IVP ONE (22:21)
[2017-04-20] MEDS: Norepinephrine 4 MG in D5% in Water 250 ML IVC SCH (22:35)
[2017-04-20] MEDS ORDERED: 0.9 % Sodium Chloride 1,000 ML IVC ONE (22:38)
[2017-04-20] MEDS: Chlorhexidine Rinse 15 ML MOUTHWASH MM SCH (22:42)
[2017-04-20] MEDS: FentaNYL (PF) 1,000 MCG in 0.9 % Sodium Chloride 80 ML IVC SCH (22:42)
[2017-04-20] MEDS: Lacri-Lube 3.5 GM TUBE BOTH EYES SCH ×2 (22:42→23:40)
[2017-04-20] MEDS ORDERED: 0.9 % Sodium Chloride 1,000 ML IVC SCH (22:45)
--- NOTE | 2017-04-20 22:49 | Event Note ---
Date of Encounter: 04/20/17 Time of Encounter: 22:30 Pt has developed hypotension to SBP 60s-70s, with decreased urine output, elevated lactate level, consider severe sepsis and septic shock. Pt was given 0.9NS 1000ml bolus already this evening, will give another 1000ml bolus and followed with 125ml/hr. Levephed drip started. Will repeat lactate in 6 hours. Pt developed rashes all over the body. Examined pt bedside, looks like hives. Suspect allergy to cefepime, will hold cefepime, change to meropenem 1000mg iv q8hr for HAP. Give pt solu-mendral 125mg iv once and benadryl 50 mg iv once. Pt has dark fluid from OG tube. Place pt on iv PPI and closely monitor H/H.
[2017-04-20] MEDS: Pantoprazole 40 MG VIAL IVP SCH (22:59)
[2017-04-21] MEDS ORDERED: Meropenem 1,000 MG in Water for inj. (sterile) 10 ML IVP SCH
[2017-04-21] MEDS: FentaNYL (PF) 1,000 MCG in 0.9 % Sodium Chloride 80 ML IVC SCH ×4 (00:09→23:46)
[2017-04-21 00:33] LABS: Hematocrit 32.8 % (37.5-50.1)
[2017-04-21 00:39] LABS: Hemoglobin 11.1 g/dL (12.9-16.9)
[2017-04-21] MEDS: Norepinephrine 4 MG in D5% in Water 250 ML IVC SCH ×5 (02:32→15:24)
[2017-04-21] MEDS: Lacri-Lube 3.5 GM TUBE BOTH EYES SCH ×5 (03:50→21:08)
[2017-04-21 04:00] LABS: ABG Base Excess -7 mEq/L (-2 to 3); ABG HCO3 20 mEq/L (21-27); ABG Oxygen Saturation 90 % (95-98); ABG PCO2 42 mmHg (35-45); ABG PH 7.27 pH Units (7.32-7.45); ABG PO2 66 mmHg (85-104); ABG TCO2 21 mEq/L (20-26); Blood Gas Modality VC; Blood Gas PEEP 5 cm H2O; Blood Gas Respiration Rate 16; Blood Gas VT 500 cc
[2017-04-21 04:08] LABS: Hematocrit 33.3 % (37.5-50.1); Hemoglobin 11.2 g/dL (12.9-16.9); Mean Corpuscular HGB Conc 33.6 g/dL (31.6-35.5); Mean Corpuscular Hemoglobin 27.7 pg (28.0-33.3); Mean Corpuscular Volume 82.2 fL (83.0-100.0); Mean Platelet Volume 11.8 fL (9.4-12.4); Nucleated Red Blood Cells 0.1 /100 WBC (0); Platelet Count 127 K/mcL (140-400); Red Blood Count 4.05 M/mcL (4.19-5.50); Red Cell Distribution Width 12.9 % (11.5-14.5)
[2017-04-21 04:13] LABS: Calcium 7.7 mg/dL (8.6-10.3); Potassium 4.6 mEq/L (3.5-5.1)
[2017-04-21 05:12] LABS: Lymphocytes # 0.6 K/mcL (0.6-4.6); Monocytes # 0.9 K/mcL (0.0-1.3); Neutrophils # 12.2 K/mcL (1.6-8.9)
[2017-04-21 05:13] LABS: Platelet Estimate Slight Decrease (Normal); Reactive Lymphocytes Present (Not Present); Toxic Granulation Present (Not Present)
--- NOTE | 2017-04-21 05:54 | Event Note ---
Date of Encounter: 04/21/17 Time of Encounter: 05:30 Pt has only around 100ml urine output during night although we give him 2L bolus followed with 125ml/hr 0.9% and BP maintained adequately at 90-100 level with levaphed drip. Cr level increase from 1.2 to 4.7. Lactate get down from 3.6 to 2.0. Called and discussed nephrology oncall Dr Monge, consider ARF caused by sepsis. Will hold further IVF now as urine output decreased. Place US renal to r /o obstruction. Pt has oozing from central line area. Place DIC workup. Pt has septic shock, ARDS, ARF, Multiple organ dysfunction, prognosis is poor.
[2017-04-21] MEDS: Insulin LISPRO 300 UNITS/3 ML VIAL SQ SCH ×2 (05:57→14:30)
[2017-04-21] MEDS: Pantoprazole 40 MG VIAL IVP SCH ×2 (05:57→17:07)
[2017-04-21 06:21] LABS: INR 1.4; Prothrombin Time 14.7 Seconds (9.4-12.1)
[2017-04-21 06:24] LABS: Activated Partial Thrombo Time 37.4 Seconds (26.0-36.0)
--- NOTE | 2017-04-21 07:47 | Pulmonology Progress Note ---
<Gely Tolbert M - Last Filed: 04/21/17 10:06> Date of Encounter: 04/21/17 Objective PUL Vital signs: Last Vital Signs Temp 98.4 F 04/21/17 08:00 Pulse 86 04/21/17 09:55 Resp 14 04/21/17 09:55 BP 89/57 04/21/17 09:55 Pulse Ox 95 04/21/17 09:55 Ventilator Settings Ventilator Settings: Ventilator Settings, Last 8 Hours Ventilator Mode VC+ Ventilator Mode VC+ Ventilator Mode VC+ Ventilator Mode VC+ Ventilator Mode VC+ Ventilator Mode VC+ Ventilator Mode VC+ Ventilator Mode VC+ Ventilator Mode VC+ Ventilator Mode VC+ Ventilator Tidal Volume 550 Setting Ventilator Tidal Volume 500 Setting Ventilator Tidal Volume 500 Setting Ventilator Tidal Volume 500 Setting Ventilator Tidal Volume 500 Setting Ventilator Tidal Volume 500 Setting Ventilator Tidal Volume 500 Setting Ventilator Tidal Volume 500 Setting Ventilator Tidal Volume 500 Setting Ventilator Tidal Volume 500 Setting Ventilator Respiratory Rate 12 Setting Ventilator Respiratory Rate 14 Setting Ventilator Respiratory Rate 14 Setting Ventilator Respiratory Rate 14 Setting Ventilator Respiratory Rate 14 Setting Ventilator Respiratory Rate 14 Setting Ventilator Respiratory Rate 14 Setting Ventilator Respiratory Rate 16 Setting Ventilator Respiratory Rate 14 Setting Ventilator Respiratory Rate 14 Setting Actual Respiratory Rate 12 Actual Respiratory Rate 17 Actual Respiratory Rate 17 Actual Respiratory Rate 20 Actual Respiratory Rate 19 Actual Respiratory Rate 17 Actual Respiratory Rate 17 Actual Respiratory Rate 17 Actual Respiratory Rate 18 Positive End Expiratory 5 Pressure Positive End Expiratory 5 Pressure Positive End Expiratory 5 Pressure Positive End Expiratory 5 Pressure Positive End Expiratory 5 Pressure Positive End Expiratory 5 Pressure Positive End Expiratory 5 Pressure Positive End Expiratory 5 Pressure Positive End Expiratory 5 Pressure Positive End Expiratory 5 Pressure Peak Inspiratory Airway 35 Pressure Peak Inspiratory Airway 32 Pressure Peak Inspiratory Airway 24 Pressure Peak Inspiratory Airway 16 Pressure Peak Inspiratory Airway 24 Pressure Peak Inspiratory Airway 23 Pressure Peak Inspiratory Airway 27 Pressure Peak Inspiratory Airway 23 Pressure Peak Inspiratory Airway 23 Pressure Results - Laboratory Findings CBC and BMP: 04/21/17 03:30 04/21/17 03:30 ABG ABG pH 7.27 pH Units (7.32-7.45) L 04/21/17 03:56 ABG pCO2 42 mmHg (35-45) 04/21/17 03:56 ABG pO2 66 mmHg (85-104) L 04/21/17 03:56 ABG O2 Saturation 90 % (95-98) L 04/21/17 03:56 PT/INR, D-dimer PT 14.7 Seconds (9.4-12.1) H 04/21/17 05:41 D-Dimer 5447 ng/mLFEU (0-500) H 04/21/17 05:41 Abnormal lab findings: Abnormal lab results WBC 14.2 K/mcL (4.3-11.1) H 04/21/17 03:30 RBC 4.05 M/mcL (4.19-5.50) L 04/21/17 03:30 Hgb 11.2 g/dL (12.9-16.9) L 04/21/17 03:30 Hct 33.3 % (37.5-50.1) L 04/21/17 03:30 MCV 82.2 fL (83.0-100.0) L 04/21/17 03:30 MCH 27.7 pg (28.0-33.3) L 04/21/17 03:30 Plt Count 127 K/mcL (140-400) L 04/21/17 03:30 Band Neutrophils % 20.0 % (0-4) H 04/21/17 03:30 Metamyelocytes % 4.0 % (0) H 04/21/17 03:30 Neutrophils # 12.2 K/mcL (1.6-8.9) H 04/21/17 03:30 Nucleated RBCs/100 WBC 0.1 /100 WBC (0) H 04/21/17 03:30 Reactive Lymphocytes Present (Not Present) A 04/21/17 03:30 Toxic Granulation Present (Not Present) A 04/21/17 03:30 Platelet Estimate Slight Decrease (Normal) L 04/21/17 03:30 PT 14.7 Seconds (9.4-12.1) H 04/21/17 05:41 APTT 37.4 Seconds (26.0-36.0) H 04/21/17 05:41 Fibrinogen 694 mg/dL (169-393) H 04/21/17 05:41 D-Dimer 5447 ng/mLFEU (0-500) H 04/21/17 05:41 ABG pH 7.27 pH Units (7.32-7.45) L 04/21/17 03:56 ABG pO2 66 mmHg (85-104) L 04/21/17 03:56 ABG HCO3 20 mEq/L (21-27) L 04/21/17 03:56 ABG O2 Saturation 90 % (95-98) L 04/21/17 03:56 ABG Base Excess -7 mEq/L (-2 to 3) L 04/21/17 03:56 Sodium 126 mEq/L (136-145) L 04/21/17 03:30 Chloride 93 mEq/L (98-107) L 04/21/17 03:30 Carbon Dioxide 20 mEq/L (23-29) L 04/21/17 03:30 BUN 55 mg/dL (8-23) H 04/21/17 03:30 Creatinine 4.70 mg/dL (0.70-1.30) H 04/21/17 03:30 Est GFR ( Amer) 15 (> 60) L 04/21/17 03:30 Est GFR (Non-Af Amer) 13 (> 60) L 04/21/17 03:30 Glucose 261 mg/dL (70-105) H 04/21/17 03:30 POC Glucose 203 (58-89) H 04/20/17 23:35 Calcium 7.7 mg/dL (8.6-10.3) L 04/21/17 03:30 Total Bilirubin 1.4 mg/dL (0.3-1.0) H 04/20/17 03:48 AST 61 Units/L (13-39) H 04/20/17 03:48 ALT 82 Units/L (7-52) H 04/20/17 03:48 Troponin I 4.53 ng/mL (< 0.04) H* 04/20/17 16:05 HDL Cholesterol 27 mg/dL (40-59) L 04/20/17 03:48 Staphylococcus sp PCR DETECTED (Not Detect) A 04/20/17 03:48 Staph aureus (PCR) DETECTED (Not Detect) A 04/20/17 03:48 - Microbiology Findings Microbiology Findings: Microbiology, Last 48 Hours 04/20/17 03:48 Blood Culture - Preliminary Peripheral Venipuncture Staphylococcus aureus 04/20/17 03:48 Blood Culture - Preliminary Peripheral Venipuncture Gram Positive Cocci - Clinical Findings Intake & Output: Intake & Output 04/20/17 04/21/17 04/21/17 23:59 07:59 15:59 Intake Total 1720 / 1720 1812 / 1812 293 / 293 Output Total 484 / 484 70 / 70 Balance 1236 / 1236 1742 / 1742 293 / 293 Weight 96.9 kg Consult Discharge Plan - Plan Referrals: Kannan Hurley DO [Primary Care Provider] - Juan Lake [Family Provider] - - Attending Attestation I examined this patient and my medical decision-making was reviewed with the Resident Physician. I agree with the documented findings, disposition and treatment plan as described except to the extent set forth below. Patient seen and examined. Labs, radiology, chart personally reviewed. 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 Continue empiric antibiotics. Cardiovascular: Patient in shock which I suspect predominantly his septic. Cardiology follow-up. GI: Nutrition per dietary and GI prophylaxis per routine check intra-abdominal pressure. Heme: DVT prophylaxis per routine ID: Continue antibiotics and plan to de-escalation. Patient has evidence of lactic acidosis and he had received fluid, however with his underlying pneumonia worsening cough oxygenation with volume resuscitation will be a problem. Follow-up lactic acid to be ordered. Renal; urine out put and renal funtion reviewed. Appreciate nephrology's input and patient needs renal replacement therapy. Endorcine: blood glucose is monitored Lines: all lines checked and no evidence of infections. There is oozing from side subclavian central line and if it does not get under control and then needs to be removed. Skin: skin care to prevent pressure ulcers per nursing routine care Discussed with the family at the bedside and his clinical course could deteriorate due to multiple comorbidities I spent 40 min of Critical Care time with this patient. It involved decision making of high complexity to assess, manipulate, and support vital organ system failure and/or to prevent further life threatening deterioration of the patient' s condition. The time involved in the performance of separately reportable procedures was not counted toward critical care time. <Jaswinder Suarez - Last Filed: 04/21/17 12:25> Date of Encounter: 04/21/17 Time of Encounter: 08:00 Assessment and Plan (1) Septic shock Current Visit: Yes Status: Acute Wt ct 14.2 (10.9) Bands 20% Creat 4.7 (1.2) Lactic acid 2.0 (3.6) Access: CVC, 2 18g peripherals Ventilated and Sedated Abx: Dc'd cefepime, changed to Meropenem Cont Vancomycin Cont Levoquin (2) Stage 3 acute kidney injury Current Visit: Yes Status: Acute Creatinine 4.7mg/dL (1.2) Urine output 100ml 12 hours. 2L NS boluses overnight Nephrology following S/P placement of temporary HD CVC for HDF. (3) Acute respiratory failure with hypoxia Current Visit: Yes Status: Acute Intubated 1700 04/19 due to increased work of breathing Vent settings: a/c, 14, 50, 500, 5 CXR 3/2 am, increased consolidation (4) Lactic acidosis Current Visit: Yes Status: Acute Trendin.0 (3.6) (5) Hematoma Current Visit: Yes Status: Acute Negative workup for femoral artery pseudoaneursym. (arterial imaging) Per general surgery; hematoma without active bleed, no indication for surgical intervention at this time. H&H stable. (6) Coronary artery disease Current Visit: Yes Status: Chronic CAD s/p PTCA/RAMÍREZ to prox circ 04/16/17 Patient is not having active chest pain, however has had elevated troponin; 4.53 (1.83) Heparin drip was discontinued 2/2 intra-abdominal hemorrhage No significant ST changes ECGs Cardiology following, [facility] morbidity high, doubt stent thrombosis Qualifiers: Coronary Disease-Associated Artery/Lesion type: [place] artery [place] vs. 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 Jarvis, 61M, [facility] CABG 2012, recent PTCA/RAMÍREZ to proximal circ with patent COOK to LAD on 2/26, presented with KAMERON, abdominal pain 04/17 1999. CTA chest/abd/pelvis shows multifocal pneumonia, large hematoma in abdominus retus sheath. Surgery and Cardiology consulted. Surgery recommended NG decompression for ileus. Assessed no surgical indication, finding no active bleed source. Pseudoaneursym workup negative at [facility] site. Today, patient is intubated and sedated. Family discussion regarding rationale behind, antibiotic regimen, sepsis/septic shock, R subclavian access and temp HD catheter for HDF discussed. Objective PUL Vital signs: Last Vital Signs Temp 98.4 F 04/21/17 07:36 Pulse 87 04/21/17 06:00 Resp 18 04/21/17 07:09 BP 103/64 04/21/17 07:09 Pulse Ox 92 04/21/17 07:09 General appearance: other (intubated and sedated) Eyes: nonicteric ENT: oropharynx moist Neck: supple Effort: other (on mechanical ventilation) Auscultation: bilateral: diminished breath sounds Cardiovascular: regular rate and rhythm Gastrointestinal: other (mild distention) Integumentary: other (presence of L subclavian CVC and R femoral temp HD catheter) Extremities: no cyanosis Musculoskeletal: no deformities (HR mid 80s, without rub, gallop, or murmur) Ventilator Settings Ventilator Settings: Ventilator Settings, Last 8 Hours Ventilator Mode VC+ Ventilator Mode VC+ Ventilator Mode VC+ Ventilator Mode VC+ Ventilator Mode VC+ Ventilator Mode VC+ Ventilator Mode VC+ Ventilator Mode VC+ Ventilator Mode VC+ Ventilator Mode VC+ Ventilator Mode VC+ Ventilator Mode VC+ Ventilator Tidal Volume 500 Setting Ventilator Tidal Volume 500 Setting Ventilator Tidal Volume 500 Setting Ventilator Tidal Volume 500 Setting Ventilator Tidal Volume 500 Setting Ventilator Tidal Volume 500 Setting Ventilator Tidal Volume 500 Setting Ventilator Tidal Volume 500 Setting Ventilator Tidal Volume 500 Setting Ventilator Tidal Volume 500 Setting Ventilator Tidal Volume 500 Setting Ventilator Tidal Volume 500 Setting Ventilator Respiratory Rate 14 Setting Ventilator Respiratory Rate 14 Setting Ventilator Respiratory Rate 14 Setting Ventilator Respiratory Rate 14 Setting Ventilator Respiratory Rate 14 Setting Ventilator Respiratory Rate 16 Setting Ventilator Respiratory Rate 14 Setting Ventilator Respiratory Rate 14 Setting Ventilator Respiratory Rate 14 Setting Ventilator Respiratory Rate 14 Setting Ventilator Respiratory Rate 14 Setting Ventilator Respiratory Rate 14 Setting Actual Respiratory Rate 17 Actual Respiratory Rate 20 Actual Respiratory Rate 19 Actual Respiratory Rate 17 Actual Respiratory Rate 17 Actual Respiratory Rate 17 Actual Respiratory Rate 18 Actual Respiratory Rate 21 Actual Respiratory Rate 25 Actual Respiratory Rate 26 Actual Respiratory Rate 30 Positive End Expiratory 5 Pressure Positive End Expiratory 5 Pressure Positive End Expiratory 5 Pressure Positive End Expiratory 5 Pressure Positive End Expiratory 5 Pressure Positive End Expiratory 5 Pressure Positive End Expiratory 5 Pressure Positive End Expiratory 5 Pressure Positive End Expiratory 5 Pressure Positive End Expiratory 5 Pressure Positive End Expiratory 5 Pressure Positive End Expiratory 5 Pressure Peak Inspiratory Airway 24 Pressure Peak Inspiratory Airway 16 Pressure Peak Inspiratory Airway 24 Pressure Peak Inspiratory Airway 23 Pressure Peak Inspiratory Airway 27 Pressure Peak Inspiratory Airway 23 Pressure Peak Inspiratory Airway 23 Pressure Peak Inspiratory Airway 20 Pressure Peak Inspiratory Airway 25 Pressure Peak Inspiratory Airway 22 Pressure Peak Inspiratory Airway 25 Pressure Results - Laboratory Findings CBC and BMP: 04/21/17 03:30 04/21/17 03:30 ABG ABG pH 7.27 pH Units (7.32-7.45) L 04/21/17 03:56 ABG pCO2 42 mmHg (35-45) 04/21/17 03:56 ABG pO2 66 mmHg (85-104) L 04/21/17 03:56 ABG O2 Saturation 90 % (95-98) L 04/21/17 03:56 PT/INR, D-dimer PT 14.7 Seconds (9.4-12.1) H 04/21/17 05:41 D-Dimer 5447 ng/mLFEU (0-500) H 04/21/17 05:41 Abnormal lab findings: Abnormal lab results WBC 14.2 K/mcL (4.3-11.1) H 04/21/17 03:30 RBC 4.05 M/mcL (4.19-5.50) L 04/21/17 03:30 Hgb 11.2 g/dL (12.9-16.9) L 04/21/17 03:30 Hct 33.3 % (37.5-50.1) L 04/21/17 03:30 MCV 82.2 fL (83.0-100.0) L 04/21/17 03:30 MCH 27.7 pg (28.0-33.3) L 04/21/17 03:30 Plt Count 127 K/mcL (140-400) L 04/21/17 03:30 Band Neutrophils % 20.0 % (0-4) H 04/21/17 03:30 Metamyelocytes % 4.0 % (0) H 04/21/17 03:30 Neutrophils # 12.2 K/mcL (1.6-8.9) H 04/21/17 03:30 Nucleated RBCs/100 WBC 0.1 /100 WBC (0) H 04/21/17 03:30 Reactive Lymphocytes Present (Not Present) A 04/21/17 03:30 Toxic Granulation Present (Not Present) A 04/21/17 03:30 Platelet Estimate Slight Decrease (Normal) L 04/21/17 03:30 PT 14.7 Seconds (9.4-12.1) H 04/21/17 05:41 APTT 37.4 Seconds (26.0-36.0) H 04/21/17 05:41 Fibrinogen 694 mg/dL (169-393) H 04/21/17 05:41 D-Dimer 5447 ng/mLFEU (0-500) H 04/21/17 05:41 ABG pH 7.27 pH Units (7.32-7.45) L 04/21/17 03:56 ABG pO2 66 mmHg (85-104) L 04/21/17 03:56 ABG HCO3 20 mEq/L (21-27) L 04/21/17 03:56 ABG O2 Saturation 90 % (95-98) L 04/21/17 03:56 ABG Base Excess -7 mEq/L (-2 to 3) L 04/21/17 03:56 Sodium 126 mEq/L (136-145) L 04/21/17 03:30 Chloride 93 mEq/L (98-107) L 04/21/17 03:30 Carbon Dioxide 20 mEq/L (23-29) L 04/21/17 03:30 BUN 55 mg/dL (8-23) H 04/21/17 03:30 Creatinine 4.70 mg/dL (0.70-1.30) H 04/21/17 03:30 Est GFR ( Amer) 15 (> 60) L 04/21/17 03:30 Est GFR (Non-Af Amer) 13 (> 60) L 04/21/17 03:30 Glucose 261 mg/dL (70-105) H 04/21/17 03:30 POC Glucose 203 (58-89) H 04/20/17 23:35 Calcium 7.7 mg/dL (8.6-10.3) L 04/21/17 03:30 Total Bilirubin 1.4 mg/dL (0.3-1.0) H 04/20/17 03:48 AST 61 Units/L (13-39) H 04/20/17 03:48 ALT 82 Units/L (7-52) H 04/20/17 03:48 Troponin I 4.53 ng/mL (< 0.04) H* 04/20/17 16:05 HDL Cholesterol 27 mg/dL (40-59) L 04/20/17 03:48 Staphylococcus sp PCR DETECTED (Not Detect) A 04/20/17 03:48 Staph aureus (PCR) DETECTED (Not Detect) A 04/20/17 03:48 - Microbiology Findings Microbiology Findings: Microbiology, Last 48 Hours 04/20/17 03:48 Blood Culture - Preliminary Peripheral Venipuncture Staphylococcus aureus 04/20/17 03:48 Blood Culture - Preliminary Peripheral Venipuncture Gram Positive Cocci - Clinical Findings Intake & Output: Intake & Output 04/20/17 04/20/17 04/21/17 15:59 23:59 07:59 Intake Total 212 / 212 1720 / 1720 1782 / 1782 Output Total 450 / 450 484 / 484 70 / 70 Balance -238 / -238 1236 / 1236 1712 / 1712 Weight 100.5 kg 96.9 kg
[2017-04-21] MEDS: Dexmedetomidine HCl 400 MCG/100 ML MLS IVC SCH (07:51)
[2017-04-21] MEDS: amLODIPine 5 MG TABLET PO SCH (07:51)
[2017-04-21] MEDS: Chlorhexidine Rinse 15 ML MOUTHWASH MM SCH ×2 (07:55→21:08)
[2017-04-21] MEDS: *HR* Ticagrelor 90 MG TABLET PO SCH ×2 (07:55→21:09)
[2017-04-21] MEDS: Aspirin 81 MG TAB.CHEW PO SCH (07:55)
[2017-04-21] MEDS ORDERED: Meropenem 500 MG in Water for inj. (sterile) 10 ML IVP SCH (08:00)
--- NOTE | 2017-04-21 10:25 | Nephrology Consult Note ---
Date of Encounter: 04/21/17 Time of Encounter: 08:28 Assessment and Plan (1) NANCY (acute kidney injury) Current Visit: Yes Status: Acute Oligoanuric ARF with risk factors: septic shock with Staph bacteremia, recent contrast exposures (CTA and LHC) but I cannot rule out abd compartment syndrome or thromboembolic induced NANCY from the LHC or TMA from the antiplatelet Rx Brillinta. 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 Rec CVVHDF for enhanced clearance and UF. He will need a temporary HD catheter placed and since it's the weekend, I will help place it since IR is not immediately available. See separate procedure note. Will start CVVHDF, 4K/2.5Ca at 1500 with Citrate at 40 plus Ca gtt for regional A/C Start with BFR of 200 and initial UF of absolute zero with the goal of slowly increasing to Net+10 over night as tolerated by HR and BP (hemodynamics). Estimate an effect CrCl of near 30 for helping renally dose Rx while on Nahomy. Continue to follow a renal protective strategy as able such as strict I/Os, daily weights and avoidance of nephrotoxins as able. I contributed about 55 min to CCT including examination, review of records, coordination of care, family discussion, complex MDM and documentation plus order placement for CRRT. Continue for consulting the [facility] group. Will closely follow with you. Discussed with the ICU team. Addendum: this not also represents HD notes, as this pt required regular adjustments to the HD catheter such as Cathflow after the Code Blue, and BFR reduction 100mL/hr plus, plus dec in dialysate and replacement fluid rates to 1000 respectively, which ultimately helped allow successfully initiation and continuation of CVVHDF. (2) Hyponatremia Current Visit: Yes Status: Acute Starting CVVHDF, which will help correct electrolyte imbalances. (3) Abdominal compartment syndrome Current Visit: Yes Status: Acute See above. Appreciate Gen Surgery. I am avoiding systemic Heparin that sometimes could be used for Nahomy. Qualifiers: Compartment syndrome type: non-traumatic Qualified Code(s): M79.A3 - Nontraumatic compartment syndrome of abdomen (4) Septic shock Current Visit: Yes Status: Acute Appreciate the ICU team. Agree with pressors. History of Present Illness - Reason for Consult Consult date: 04/21/17 Acute Kidney Injury, hyponatremia Requesting physician: Gely Tolbert - Chief Complaint ARF - History of Present Illness Umberto Pablo is a 61 y/o WM with a pmh of CAD s/p recent PCI and et al who presented with repeat CP. Nephrology was consulted for acute renal failure. He was found to have abd distension and noted to have an abdominal hematoma with minimal UOP. During my interview and examination he was intubated, so all hx came from chart review and discussion with his . He has never needed to see another Preschool Director in the past. He does not routinely take OTC NSAIDs. He just had a LHC and CTA Chest, Abd, and pelvis with contrast. He was not having severe N/V/D or dysuria. Further HPI and ROS were limited d/t his intubation. Past Med Surg Social Fam HX - Past Medical History Medical history: coronary artery disease, diabetes, hyperlipidemia, hypertension , kidney stones Psychiatric history: depression - Past Surgical History Surgical History: coronary bypass (CABG) - Social History Smoking Status: Never smoker Smokeless Tobacco Status: No Alcohol use: none Drug use: none - Family History Mother Living Status: Still Living Hx Family Cardiac Disorders: Yes (CAD s/p CABG in 70s) Hx Family Respiratory Disorders: Yes (copd) Hx Family Cancer: Yes (lung ca) Hx Family Endocrine Disorder: No Father Adopted: [place]: KRISTY PABLO Living Status: Age at : 60 Cause of : MYOCARDIAL INFARCTION Hx Family Cardiac Disorders: Yes ([place]) Hx Family Respiratory Disorders: No Hx Family Cancer: No Hx Family GI Disorders: No Hx Family Genitourinary Disorders: No Hx Family Endocrine Disorder: No Hx Family Musculoskeletal Disorders: No Hx Family Neuromuscular Disorders: No Hx Family Neurologic Disorders: No Hx Family HEENT Disorders: No Hx Family Autoimmune Disorders: No Hx Family Reproductive Disorders: No Hx Family Psychosocial Disorders: No Hx Family Medical Disorders: No Medications and Allergies Amlodipine Besylate 10 mg PO DAILY 04/15/17 [History] Citalopram [CeleXA] 20 mg PO DAILY 04/15/17 [History] Losartan Potassium [Cozaar] 50 mg PO DAILY 04/15/17 [History] Multivitamin [One Daily Essential] 1 each PO DAILY 04/15/17 [History] glipiZIDE [Glipizide] 10 mg PO DAILY 04/15/17 [History] metFORMIN [Glucophage] 500 mg PO BIDWM 04/15/17 [History] Aspirin 81 mg PO DAILY #30 tab.chew 04/17/17 [Rx] Carvedilol [Coreg] 12.5 mg PO BIDWM #120 tablet 04/17/17 [Rx] Nitroglycerin 0.4 mg SL Q5MIN #9 tab.subl 04/17/17 [Rx] Ticagrelor [Brilinta] 90 mg PO BID #60 tablet 04/17/17 [Rx] Atorvastatin Calcium [Lipitor] 20 mg PO HS 04/19/17 [History] 3 Allergy/AdvReac Type Severity Reaction Status Date / Time cefepime Allergy Mild Hives Verified 04/22/17 04:34 Review of Systems ROS unobtainable: due to endotracheal tube Exam - Vital Signs Vital signs: Initial Vital Signs Temp Pulse Resp BP Pulse Ox 98.2 F 103 20 125/84 92 04/19/17 19:20 04/19/17 19:20 04/19/17 19:20 04/19/17 19:20 04/19/17 19:20 Vital Signs - Last 8 Hours Temp Pulse Resp BP Pulse Ox 04/21/17 09:55 86 14 89/57 95 04/21/17 09:10 12 100/62 97 04/21/17 09:00 87 17 100/62 97 04/21/17 08:00 98.4 F 86 18 101/65 93 04/21/17 07:36 98.4 F 04/21/17 07:09 18 103/64 92 04/21/17 07:00 89 18 103/64 92 04/21/17 06:00 87 20 95/61 91 04/21/17 05:38 19 102/62 92 04/21/17 05:00 84 17 96/59 91 04/21/17 04:00 89 17 99/58 90 04/21/17 03:30 86 04/21/17 03:16 17 94/57 93 04/21/17 03:06 98.0 F 04/21/17 03:00 84 18 92/55 93 Intake and Output 04/20/17 04/21/17 04/21/17 23:59 07:59 15:59 Intake Total 1720 / 1720 1812 / 1812 293 / 293 Output Total 484 / 484 70 / 70 Balance 1236 / 1236 1742 / 1742 293 / 293 Intake: IV Fluids 1720 / 1720 1812 / 1812 293 / 293 0.9 % Sodium Chloride 1,000 ML 1000 / 1000 700 / 700 @ 125 mls/hr IVC .Q8H [facility] Rx#: [id number] PRECEDEX Premix 400 mcg In 100 54 / 54 ml @ 0.2 MCG/KG/HR 5.025 mls/hr IVC .[id number] [facility] Rx#: [id number] FentaNYL (PF) 1,000 MCG In 0.9 100 / 100 % Sodium Chloride 80 ML @ 50 MCG/HR 5 mls/hr IVC CONT [facility] Rx #:[id number] Versed 50 MG In 0.9 % Sodium 61 / 61 39 / 39 Chloride 90 ML @ 2 MG/HR 4 mls/ hr IVC CONT [facility] Rx#:[id number] Levophed 4 MG In Dextrose 5% 508 / 508 254 / 254 250 ML @ 5 MCG/MIN 19.05 mls/hr IVC CONT [facility] Rx#:[id number] Diprivan 1,000 mg In 100 ml @ 5 39 / 39 MCG/KG/MIN 3.015 mls/hr IVC . Q24H [facility] Rx#:[id number] Maxipime 1,000 MG In Water for 10 / 10 inj. (sterile) 10 ML @ 150 mls/ hr IVP Q12HR [facility] Rx#:[id number] Merrem 1,000 MG In Water for 10 / 10 inj. (sterile) 10 ML @ 200 mls/ hr IVP Q8HR [facility] Rx#:[id number] Ofirmev 1,000 mg/100 ml 1,000 100 / 100 mg In 100 ml @ 400 mls/hr IVPB ONCE [facility] Rx#:[id number] Magnesium Sulfate Premix 2gm/ 50 / 50 50mL 2 gm In 50 ml @ 50 mls/hr IVPB ONCE [facility] Rx#:[id number] Potassium Chloride 10 mEq/100mL 300 / 300 10 meq In 100 ml @ 100 mls/hr IVPB Q1H [facility] Rx#:[id number] Vancocin 1,500 MG In 0.9 % 250 / 250 250 / 250 Sodium Chloride 250 ML @ 167 mls/hr IVPB Q12H [facility] Rx#: [id number] Oral 0 / 0 Output: Catheter 84 / 84 20 / 20 Gastric Drainage 400 / 400 50 / 50 Other: Weight 96.9 kg Blood Glucose* 203 Patient Weight 04/21/17 23:59 Weight 96.9 kg - General Appearance Exam: General appearance: Present: moderate distress, sedated on ventilator, intubated EENT: Present: ATNC, PERRL Respiratory: Present: rhonchi Cardiology: Present: edema (trace hand and minimal pedal edema), regular rate, regular rhythm, normal S1, normal S2 Dialysis Vascular Access: Venous Catheter (Right femoral HD catheteer was C/D/I without ozzing or exudates.) Additional Comments: distended abd with diminished bowel sounds Integumentary: Present: warm and dry Neurologic: Present: no asterixis (but he is intubated/sedated, which limited the neuro examine) Musculoskeletal: Present: no erythema, no cyanosis Results - Lab Results 04/22/17 03:54 04/22/17 12:15 Most recent lab results ABG pH 7.27 pH Units (7.32-7.45) L 04/21/17 03:56 ABG pCO2 42 mmHg (35-45) 04/21/17 03:56 ABG pO2 66 mmHg (85-104) L 04/21/17 03:56 ABG HCO3 20 mEq/L (21-27) L 04/21/17 03:56 ABG O2 Saturation 90 % (95-98) L 04/21/17 03:56 Calcium 7.7 mg/dL (8.6-10.3) L 04/21/17 03:30 Phosphorus 2.7 mg/dL (2.7-4.5) 04/20/17 03:48 Magnesium 1.6 mg/dL (1.6-2.6) 04/20/17 03:48 I reviewed the labs, med lists (both inpt and outpt), progress notes, recent procedure notes, vital signs such as the diminished UOP and imaging including the CTA C/B/P with 140cc of IV contrast Consult Discharge Plan - Plan Referrals: Kannan Hurley DO [Primary Care Provider] - Juan Lake [Family Provider] -
[2017-04-21] MEDS ORDERED: Calcium Gluconate 2,000 MG in 0.9 % Sodium Chloride 100 ML IVPB PRN (10:26)
--- NOTE | 2017-04-21 10:27 | Procedure Note ---
Date of procedure: 04/21/17 Pre-op diagnosis: Stage 3 Acute Kidney Injury in setting of Septic Shock Post-op diagnosis: same Procedure: Placement of temporary hemodialysis central venous catheter A time-out was completed verifying correct patient, procedure, site, positioning , and special equipment if applicable. The patient was placed in a dependent position appropriate for temporary hemodialysis central venous catheter placement based on the right femoral vein to be cannulated. The patients right groin was prepped and draped in sterile fashion. 1% Lidocaine was used to anesthetize the surrounding skin area. A triple lumen 12.5 [place] triple lumen catheter was introduced into the the common femoral vein using the Seldinger technique and under ultrasound guidance (confirmation of initial guidewire in femoral vein was done by US). The catheter was threaded smoothly over the guide wire and appropriate blood return was obtained. Each lumen of the catheter was evacuated of air and flushed with sterile saline. The catheter was then sutured in place to the skin with biofilm in place , and a sterile dressing applied. Dr. Jerome Monge was present during the entire procedure. Anesthesia: local Surgeon: Jaswinder Suarez Was there an senior it assistant present: Yes Vp Data: Jerome Monge Estimated blood loss (cc): 5 Specimen: none Pathology: none sent Condition: critical Disposition: no change
[2017-04-21] MEDS ORDERED: 0.9 % Sodium Chloride 1,000 ML PRIME SCH (10:30)
--- NOTE | 2017-04-21 10:34 | Cardiology Progress Note ---
Date of Encounter: 04/21/17 Time of Encounter: 10:31 Assessment and Plan (1) Coronary artery disease Current Visit: Yes Status: Chronic s/p PCI to the [place] OM due to occluded SVG to OM. Peak troponin to 4.88. No LHC planned due to limited options with LHC and high risk due to septic shock and MOFand ARF today with Cr >4.0. Continue Brilinta and ASA unless absolute contraindication. Qualifiers: Coronary Disease-Associated Artery/Lesion type: [place] artery [place] vs. transplanted heart: [place] heart Associated angina: with other forms of angina Qualified Code(s): I25.118 - Atherosclerotic heart disease of [place] coronary artery with other forms of angina pectoris (2) Sepsis Current Visit: Yes Status: Acute Sepsis on ABx followed by PCCM. Pneumonia and LUE infection likely sources Qualifiers: Sepsis type: sepsis due to unspecified organism Qualified Code(s): A41.9 - Sepsis, unspecified organism (3) Acute respiratory failure with hypoxia Current Visit: Yes Status: Acute S/P intubation due to pneumonia PCCM managing (4) Hematoma Current Visit: Yes Status: Acute Rectus sheath hemotama possible compartment like syndrome , Surgery consulted Discussion w patient/family: NSTEMI with elevated troponins likely demand ischemia Vs Stent thrombosis less likely. Patient with large hematoma in the rectus sheath possibly extending retro peritoneal possibly causing peritonitis and acute abdomen. Will consult Surgery. Patient high risk for stent thrombosis if brilinta stopped. No plan for LHC at this time. Rectus sheath hematoma with possible peritonitis and acute abdomen. Consult surgery Multilobular consolidation possibly pneumonia and resp insufficiency. PCCM consult for impending resp failure and need for intubation LUE swelling and pain possible infections The assessment and plan as outlined above was discussed with the patient and/or family members who expressed understanding and agreement. All questions were answered. Thank you for involving us in the care of your patient. Please call with any questions. Subjective Principal diagnosis: Sepsis/Septic Shock Interval history: Patient with worsening sats on the vent likely econdary to worsening pneumonia. ARF to have karolina, no pressure support needed at this time. Peak trops yesterday noted at 4.88 with low BNP Objective Vital Signs, Last 4 Hours Temp Pulse Resp BP Pulse Ox 04/21/17 09:55 86 14 89/57 95 04/21/17 09:10 12 100/62 97 04/21/17 09:00 87 17 100/62 97 04/21/17 08:00 98.4 F 86 18 101/65 93 04/21/17 07:36 98.4 F 04/21/17 07:09 18 103/64 92 04/21/17 07:00 89 18 103/64 92 Results 04/21/17 03:30 04/21/17 03:30 Lab Results 04/20/17 04/21/17 04/21/17 16:05 00:25 03:30 WBC Hgb 11.1 L D Hct 32.8 L Plt Count INR APTT D-Dimer Sodium 126 L Potassium 4.6 D Chloride 93 L Carbon Dioxide 20 L BUN 55 H Creatinine 4.70 H Glucose 261 H Calcium 7.7 L Troponin I 4.53 H* 04/21/17 04/21/17 03:30 05:41 WBC 14.2 H Hgb 11.2 L Hct 33.3 L Plt Count 127 L INR 1.4 APTT 37.4 H D-Dimer 5447 H Sodium Potassium Chloride Carbon Dioxide BUN Creatinine Glucose Calcium Troponin I Consult Discharge Plan - Plan Referrals: Kannan Hurley DO [Primary Care Provider] - Juan [place] [Family Provider] -
[2017-04-21] MEDS: Calcium Chloride 4,000 MG in 0.9 % Sodium Chloride 1,000 ML CRRT SCH (11:34)
[2017-04-21] MEDS: PrismaSATE BGK 4/2.5 5,000 ML CRRT SCH ×4 (11:35→21:30)
[2017-04-21 12:30] LABS: ABG Base Excess -9 mEq/L (-2 to 3); ABG HCO3 19 mEq/L (21-27); ABG Oxygen Saturation 89 % (95-98); ABG PCO2 48 mmHg (35-45); ABG PO2 68 mmHg (85-104); ABG TCO2 20 mEq/L (20-26); Blood Gas Modality VC; Blood Gas PEEP 5 cm H2O; Blood Gas Respiration Rate 12; Blood Gas VT 550 cc
[2017-04-21] MEDS ORDERED: EPINEPHrine 1 MG in D5% in Water 250 ML IVC SCH (13:00)
[2017-04-21 13:05] LABS: Hematocrit 28.5 % (37.5-50.1); Hemoglobin 9.7 g/dL (12.9-16.9)
--- NOTE | 2017-04-21 13:07 | Event Note ---
<Ciaran Cristobal - Last Filed: 04/21/17 13:28> Date of Encounter: 04/21/17 Time of Encounter: 13:06 12:32 I was urgently called bedside by nursing. Patient was becoming bradycardic. As the crash cart was rushed into the room, patient became pulseless. CPR was immediately started, additional staff were called, pacer pads were placed and patient was in PEA arrest. A Code Blue was paged. Patient received 6 rounds of CPR, 4 rounds of epinephrine, 2amps of bicarb, and a 1L NS bolus on pressure bag. We achieved ROSC to sinus tachycardia in the 120's. An epinephrine and bicarbonate drip were beginning to be prepared. 12 lead EKG showed sinus tachycardia with PVC, RBBB, ST depression in V3, V4 to max of 3-4mm. As EKG was completed, patient descended into SVT in the 170's. Cardioverted once with 100J. Return to normal sinus rhythm with rate in the 90's. 12 lead EKG showed sinus rhythm with a rate of 99. GA 167, QRS 165, QTc 454, RBBB, re- demonstration of ST depression in V3, V4. Post-arrest chest-xray and lab work pending. Will place patient on epinephrine and bicarbonate drip. 13:10 I discussed the patient with Dr. Ruiz, who is familiar with the patient and saw him this morning. In the context of the patient's complex critical overall status, his PEA arrest is unlikely strictly cardiac and would have marginal benefit from a cardiac catheterization compared to the high risk of being outside the ICU in his unstable condition. He will continue to follow and hold on cath for now. 13:30 Dr. Jaswinder Esposito and myself discussed the patient's current status and cardiac arrest with his multiple family members (20+ present). We discussed his current sinus rhythm, the code itself, his critical and complex medical state. We discussed next steps and pending labs. They had no questions at this time. With nursing's approval, family was allowed to visit bedside a few persons at a time. <Guy Langston - Last Filed: 04/21/17 18:15> Date of Encounter: 04/21/17 I have been present in the room supervising the medical records receptionist during the entire code and my medical decision-making was reviewed with the Resident Physician. I agree with the documented findings, disposition and treatment plan as described except to the extent set forth below. Patient received a total of 3x50 mEq ampules of sodium bicarbonate IV push. We ordered 2000 and IV normal saline bolus and he received the first liter during the code. We performed a quick subxiphoid view cardiac ultrasound which showed after ROSC diminished contractility of the left ventricle, no significant pleural fluid. After ROSC we started IV epinephrine drip and IV sodium bicarbonate. Patient maintained blood pressure of about 120 systolic.
[2017-04-21 13:14] LABS: INR 1.6; Prothrombin Time 17.2 Seconds (9.4-12.1)
[2017-04-21 13:24] LABS: Potassium 4.2 mEq/L (3.5-5.1)
[2017-04-21 13:28] LABS: VBG Ionized Calcium 0.95 mmol/L (1.15-1.35)
[2017-04-21] MEDS ORDERED: Sodium Bicarbonate 150 MEQ in 0.45 % Sodium Chloride 1,000 ML IVC SCH (13:30)
[2017-04-21] MEDS: Meropenem 500 MG in Water for inj. (sterile) 20 ML 10 ML IVP SCH (13:30)
[2017-04-21] MEDS ORDERED: Sodium Bicarbonate 150 MEQ in D5% in Water 1,000 ML IVC SCH (13:30)
[2017-04-21 14:56] LABS: Basophils % 0.1 %; Hematocrit 30.4 % (37.5-50.1); Immature Granulocytes % 1.1 % (0-4); Lymphocytes % 4.4 %; Mean Corpuscular HGB Conc 32.9 g/dL (31.6-35.5); Mean Corpuscular Hemoglobin 27.9 pg (28.0-33.3); Mean Corpuscular Volume 84.9 fL (83.0-100.0); Mean Platelet Volume 12.1 fL (9.4-12.4); Monocytes % 6.6 %; Neutrophils # 20.6 K/mcL (1.6-8.9); Platelet Count 158 K/mcL (140-400); Red Blood Count 3.58 M/mcL (4.19-5.50); Red Cell Distribution Width 13.2 % (11.5-14.5); Segmented Neutrophils % 87.8 %
[2017-04-21 14:58] LABS: Monocytes # 1.6 K/mcL (0.0-1.3)
[2017-04-21] MEDS ORDERED: *HR* Norepinephrine 4 MG/4 ML VIAL IVC ONE (14:58)
[2017-04-21] MEDS ORDERED: *HR* EPINEPHrine 1 MG/10 ML SYRINGE INTRATRACH ONE (14:58)
[2017-04-21 15:03] LABS: INR 1.5; Prothrombin Time 16.2 Seconds (9.4-12.1)
[2017-04-21 15:04] LABS: VBG PCO2 76 mmHg (41-51); VBG PH 7.04 pH Units (7.32-7.42); VBG PO2 81 mmHg (25-50)
[2017-04-21 15:05] LABS: VBG HCO3 21 mEq/L (21-27)
[2017-04-21 15:11] LABS: ABG Base Excess -7 mEq/L (-2 to 3); ABG HCO3 22 mEq/L (21-27); ABG Oxygen Saturation 93 % (95-98); ABG PCO2 62 mmHg (35-45); ABG PH 7.16 pH Units (7.32-7.45); ABG PO2 85 mmHg (85-104); ABG TCO2 24 mEq/L (20-26); Blood Gas PEEP 5 cm H2O; Blood Gas Respiration Rate 12; Blood Gas VT 600 cc
[2017-04-21] MEDS ORDERED: *HR* Heparin 5,000 UNIT/ML VIAL ONE (15:12)
[2017-04-21] MEDS ORDERED: 0.9 % Sodium Chloride 500 ML ONE ×2 (15:16→15:58)
[2017-04-21] MEDS ORDERED: Insulin Regular, Human 100 UNIT/ML SQ ONE (15:20)
[2017-04-21 15:21] LABS: Albumin 2.6 g/dL (3.5-5.7); Albumin/Globulin Ratio 1.2 (1.1-2.2); Bilirubin,Total 1.2 mg/dL (0.3-1.0); Globulin 2.2 g/dL (2.4-3.5); Total Protein 4.8 g/dL (6.4-8.9)
[2017-04-21] MEDS ORDERED: *HR* Alteplase (Cathflo) 2 MG VIAL IVP ONE (15:22)
[2017-04-21 15:24] LABS: Troponin I 4.23 ng/mL (< 0.04)
[2017-04-21 15:36] LABS: Platelet Estimate Normal (Normal); Reactive Lymphocytes Present (Not Present); Toxic Granulation Present (Not Present); Toxic Vacuolation Present (Not Present)
[2017-04-21] MEDS ORDERED: Norepinephrine 4 MG in 0.9 % Sodium Chloride 250 ML IVC SCH (16:00)
[2017-04-21] MEDS ORDERED: *HR* Vecuronium 10 MG VIAL IVP ONE (16:16)
--- NOTE | 2017-04-21 16:31 | Event Note ---
Date of Encounter: 04/21/17 Time of Encounter: 16:00
--- NOTE | 2017-04-21 16:40 | Event Note ---
<Ciaran Cristobal - Last Filed: 04/21/17 16:25> Date of Encounter: 04/21/17 Time of Encounter: 16:00 Procedure: Arterial Line Placement Physician(s): Guy Kamara DO, MD Indication: Emergent need for continuous arterial pressure, need for serial ABG draws. Anesthesia: None. Patient intubated, sedated. A time-out was completed verifying correct patient, procedure, site, positioning , and special equipment. Allens test was performed to ensure adequate perfusion. Right radial pulse was palpted. Patients right wrist was positioned, secured, prepped, and draped in the usual sterile fashion. Ultrasound guidance was used to aid needle placement. A 20g [place] arterial line was introduced into the radial artery and guide wire advanced. Guide wire placement in artery lumen was confirmed on ultrasound. Catheter was threaded over the guide wire and the needle/guide wire assembly was removed with appropriate pulsating blood return. The line to the pressure transducer was immediately placed. Good waveform was observed. The catheter was secured in place with suture and covered with teguderm dressing. The patient tolerated the procedure well. Blood Loss: Minimal Complications: None Dr. Langston was immediately available by telephone during the entire procedure. <Guy Langston - Last Filed: 04/21/17 18:16> Date of Encounter: 04/21/17 I examined this patient and agree with the documentation above by the Resident Physician. Patient requires arterial line for serial ABG draws and blood pressure monitoring. He is currently taking medical condition. Procedure was performed by the resident physician without any immediate complications.
[2017-04-21] MEDS: Insulin Human Regular 100 UNIT in 0.9 % Sodium Chloride 100 ML IVC SCH (17:28)
[2017-04-21] MEDS: EPINEPHrine 1 MG in 0.9 % Sodium Chloride 250 ML IVC SCH (17:29)
[2017-04-21] MEDS ORDERED: Norepinephrine 8 MG in 0.9 % Sodium Chloride 500 ML IVC SCH (17:45)
[2017-04-21 17:47] LABS: ABG Base Excess -3 mEq/L (-2 to 3); ABG HCO3 22 mEq/L (21-27); ABG Oxygen Saturation 99 % (95-98); ABG PCO2 38 mmHg (35-45); ABG PH 7.37 pH Units (7.32-7.45); ABG PO2 120 mmHg (85-104); ABG TCO2 23 mEq/L (20-26); Blood Gas Modality VC; Blood Gas PEEP 5 cm H2O; Blood Gas Respiration Rate 18; Blood Gas VT 600 cc
--- NOTE | 2017-04-21 18:00 | General Surgery Progress Note ---
Date of Encounter: 04/21/17 Time of Encounter: 17:58 - Assessment and Plan (1) Abdominal compartment syndrome Current Visit: Yes Status: Acute 61M with respiratory failure, sepsis 2/2 pneumonia currently on pressors, on HD 2/2 acute renal failure; currently making urine that is clear; cardiac arrest - patient with ROSC after 4 rounds of epi; called due to concern for abdominal compartment syndrome; no peak pressures on ventilator, UOP is 2/2 sepsis but is currently resolving after dialysis; no surgery at present cont with supportive care observe for significantly increased peak inspiratory pressures and decrease in UOP despite supportive effors abdomen is soft - cont with serial exams; will cont to follow Qualifiers: Compartment syndrome type: non-traumatic Qualified Code(s): M79.A3 - Nontraumatic compartment syndrome of abdomen Subjective Patient reports: other ( intubated; coded today, but had ROSC after 4 rounds of epi; currently on dialysis) Objective Vital Signs - Last 8 Hours Temp Pulse Resp BP Pulse Ox 04/21/17 17:33 18 100/54 100 04/21/17 17:00 92 18 104/52 98 04/21/17 16:00 97.8 F 99 18 122/75 99 04/21/17 15:15 17 98/69 96 04/21/17 15:00 106 19 114/67 98 04/21/17 14:00 104 19 103/60 96 04/21/17 13:17 16 91/55 93 04/21/17 13:00 99 17 77/51 89 04/21/17 12:00 97.8 F 89 14 96/58 97 04/21/17 11:31 14 107/56 97 04/21/17 11:00 87 14 100/59 97 Intake and Output 04/21/17 04/21/17 04/21/17 07:59 15:59 23:59 Intake Total 1811 1047 / 1047 Output Total 70 / 70 40 / 40 60 / 60 Balance 174 / 174 1007 / 1007 -60 / -60 Intake: IV Fluids 1811 1047 / 1047 Calcium Chloride 4,000 MG In 0. 0 / 0 9 % Sodium Chloride 1,000 ML @ 40 mls/hr CRRT CONT [facility] Rx#: [id number] 0.9 % Sodium Chloride 1,000 ML 700 / 700 @ 125 mls/hr IVC .Q8H [facility] Rx#: [id number] PRECEDEX Premix 400 mcg In 100 54 / 54 ml @ 0.2 MCG/KG/HR 5.025 mls/hr IVC .[id number] [facility] Rx#: [id number] EPINEPHrine 1 MG In Dextrose 5% 126 / 126 250 ML @ 1 MCG/MIN 15.06 mls/ hr IVC CONT [facility] Rx#:[id number] FentaNYL (PF) 1,000 MCG In 0.9 100 / 100 % Sodium Chloride 80 ML @ 50 MCG/HR 5 mls/hr IVC CONT [facility] Rx #:[id number] Versed 50 MG In 0.9 % Sodium 61 / 61 39 / 39 Chloride 90 ML @ 2 MG/HR 4 mls/ hr IVC CONT [facility] Rx#:[id number] Levophed 4 MG In Dextrose 5% 508 / 508 762 / 762 250 ML @ 5 MCG/MIN 19.05 mls/hr IVC CONT [facility] Rx#:[id number] Diprivan 1,000 mg In 100 ml @ 5 39 / 39 MCG/KG/MIN 3.015 mls/hr IVC . Q24H [facility] Rx#:[id number] Merrem 500 MG In Water for inj. 10 / 10 (sterile) 10 ML @ 200 mls/hr IVP Q12H [facility] Rx#:[id number] Calcium Gluconate 1,000 MG In 0 110 / 110 .9 % Sodium Chloride 100 ML @ 220 mls/hr IVPB [facility] Rx#: [id number] Vancocin 1,500 MG In 0.9 % 250 / 250 Sodium Chloride 250 ML @ 167 mls/hr IVPB Q12H [facility] Rx#: [id number] Output: Catheter 20 / 20 40 / 40 60 / 60 Gastric Drainage 50 / 50 0 / 0 Other: Weight 96.9 kg Blood Glucose* 538 430 Patient Weight 04/21/17 23:59 Weight 96.9 kg - General physical appearance other (intubated; sedated) - Respiratory normal expansion - Cardiovascular Cardiovascular exam: Present: RRR - Abdomen Abdomen: Present: soft - Labs 04/21/17 14:25 04/21/17 14:25 Diabetes panel 04/21/17 04/21/17 04/21/17 Range/Units 03:30 12:50 14:25 Sodium 126 L 131 L 127 L (136-145) mEq/L Potassium 4.6 D 4.2 5.0 (3.5-5.1) mEq/L Chloride 93 L 92 L 90 L (98-107) mEq/L Carbon Dioxide 20 L 23 20 L (23-29) mEq/L BUN 55 H 63 H 65 H (8-23) mg/dL Creatinine 4.70 H 5.23 H 5.68 H (0.70-1.30) mg/dL Glucose 261 H 396 H 471 H (70-105) mg/dL Calcium 7.7 L 7.0 L 7.0 L (8.6-10.3) mg/dL AST 368 H (13-39) Units/L ALT 282 H (7-52) Units/L Alkaline Phosphatase 56 (34-104) Units/L Albumin 2.6 L (3.5-5.7) g/dL Calcium panel 04/21/17 04/21/17 04/21/17 Range/Units 03:30 12:50 14:25 Calcium 7.7 L 7.0 L 7.0 L (8.6-10.3) mg/dL Albumin 2.6 L (3.5-5.7) g/dL Pituitary panel 04/21/17 04/21/17 04/21/17 Range/Units 03:30 12:50 14:25 Sodium 126 L 131 L 127 L (136-145) mEq/L Potassium 4.6 D 4.2 5.0 (3.5-5.1) mEq/L Chloride 93 L 92 L 90 L (98-107) mEq/L Carbon Dioxide 20 L 23 20 L (23-29) mEq/L BUN 55 H 63 H 65 H (8-23) mg/dL Creatinine 4.70 H 5.23 H 5.68 H (0.70-1.30) mg/dL Glucose 261 H 396 H 471 H (70-105) mg/dL Calcium 7.7 L 7.0 L 7.0 L (8.6-10.3) mg/dL Adrenal panel 04/21/17 04/21/17 04/21/17 Range/Units 03:30 12:50 14:25 Sodium 126 L 131 L 127 L (136-145) mEq/L Potassium 4.6 D 4.2 5.0 (3.5-5.1) mEq/L Chloride 93 L 92 L 90 L (98-107) mEq/L Carbon Dioxide 20 L 23 20 L (23-29) mEq/L BUN 55 H 63 H 65 H (8-23) mg/dL Creatinine 4.70 H 5.23 H 5.68 H (0.70-1.30) mg/dL Glucose 261 H 396 H 471 H (70-105) mg/dL Calcium 7.7 L 7.0 L 7.0 L (8.6-10.3) mg/dL Total Bilirubin 1.2 H (0.3-1.0) mg/dL AST 368 H (13-39) Units/L ALT 282 H (7-52) Units/L Alkaline Phosphatase 56 (34-104) Units/L Albumin 2.6 L (3.5-5.7) g/dL Consult Discharge Plan - Plan Referrals: Kannan Hurley DO [Primary Care Provider] - Juan [place] [Family Provider] -
[2017-04-21 19:03] LABS: VBG Ionized Calcium 0.85 mmol/L (1.15-1.35); VBG PH 7.35 pH Units (7.32-7.42)
[2017-04-21 21:37] LABS: ABG Base Excess 0 mEq/L (-2 to 3); ABG HCO3 25 mEq/L (21-27); ABG Oxygen Saturation 94 % (95-98); ABG PCO2 44 mmHg (35-45); ABG PH 7.37 pH Units (7.32-7.45); ABG PO2 75 mmHg (85-104); ABG TCO2 27 mEq/L (20-26); Blood Gas Modality VC; Blood Gas PEEP 5 cm H2O; Blood Gas Respiration Rate 16; Blood Gas VT 600 cc
[2017-04-21 21:38] LABS: VBG Ionized Calcium 0.94 mmol/L (1.15-1.35)
[2017-04-21] MEDS: Norepinephrine 16 MG in D5% in Water 500 ML IVC SCH (23:46)
[2017-04-22] MEDS: Dexmedetomidine HCl 400 MCG/100 ML MLS IVC SCH (00:13)
[2017-04-22 00:17] LABS: VBG Ionized Calcium 1.06 mmol/L (1.15-1.35)
[2017-04-22] MEDS ORDERED: Meropenem 500 MG in Water for inj. (sterile) 20 ML 10 ML IVP SCH (00:30)
[2017-04-22] MEDS: Lacri-Lube 3.5 GM TUBE BOTH EYES SCH ×6 (00:31→20:00)
[2017-04-22] MEDS: Meropenem 500 MG in Water for inj. (sterile) 20 ML 10 ML IVP SCH ×3 (00:51→11:17)
[2017-04-22] MEDS: Insulin Human Regular 100 UNIT in 0.9 % Sodium Chloride 100 ML IVC SCH ×2 (01:20→22:59)
[2017-04-22 01:23] LABS: ABG Base Excess 1 mEq/L (-2 to 3); ABG HCO3 26 mEq/L (21-27); ABG Oxygen Saturation 94 % (95-98); ABG PCO2 41 mmHg (35-45); ABG PH 7.41 pH Units (7.32-7.45); ABG PO2 71 mmHg (85-104); ABG TCO2 27 mEq/L (20-26); Blood Gas Modality VC; Blood Gas PEEP 5 cm H2O; Blood Gas Respiration Rate 16; Blood Gas VT 600 cc
[2017-04-22 02:15] LABS: VBG Ionized Calcium 1.06 mmol/L (1.15-1.35)
[2017-04-22] MEDS: PrismaSATE BGK 4/2.5 5,000 ML CRRT SCH ×10 (02:30→23:21)
[2017-04-22 04:13] LABS: Hematocrit 25.7 % (37.5-50.1); Hemoglobin 9.1 g/dL (12.9-16.9); Immature Platelets 12.3 % (1.1-6.1); Mean Corpuscular HGB Conc 35.4 g/dL (31.6-35.5); Mean Corpuscular Hemoglobin 28.3 pg (28.0-33.3); Mean Corpuscular Volume 79.8 fL (83.0-100.0); Mean Platelet Volume 11.5 fL (9.4-12.4); Red Blood Count 3.22 M/mcL (4.19-5.50); Red Cell Distribution Width 12.8 % (11.5-14.5)
[2017-04-22 04:16] LABS: VBG Ionized Calcium 1.04 mmol/L (1.15-1.35); VBG PH 7.43 pH Units (7.32-7.42)
[2017-04-22 04:41] LABS: Albumin 2.5 g/dL (3.5-5.7); Albumin/Globulin Ratio 1.1 (1.1-2.2); Bilirubin,Direct 0.4 mg/dL (0.0-0.2); Bilirubin,Indirect 0.5 mg/dL (0.0-1.2); Bilirubin,Total 0.9 mg/dL (0.3-1.0); Globulin 2.2 g/dL (2.4-3.5); Magnesium 2.2 mg/dL (1.6-2.6); Total Protein 4.7 g/dL (6.4-8.9)
[2017-04-22] MEDS: FentaNYL (PF) 1,000 MCG in 0.9 % Sodium Chloride 80 ML IVC SCH ×4 (04:47→21:29)
[2017-04-22 04:59] LABS: Platelet Count 88 K/mcL (140-400)
[2017-04-22 05:07] LABS: Lymphocytes # 0.7 K/mcL (0.6-4.6); Monocytes # 0.3 K/mcL (0.0-1.3); Neutrophils # 7.6 K/mcL (1.6-8.9); Platelet Estimate Decreased (Normal)
[2017-04-22 05:08] LABS: Toxic Granulation Present (Not Present)
[2017-04-22] MEDS: Pantoprazole 40 MG VIAL IVP SCH ×2 (05:11→17:25)
[2017-04-22 05:17] LABS: ABG Base Excess 2 mEq/L (-2 to 3); ABG HCO3 26 mEq/L (21-27); ABG Oxygen Saturation 95 % (95-98); ABG PCO2 41 mmHg (35-45); ABG PH 7.42 pH Units (7.32-7.45); ABG PO2 73 mmHg (85-104); ABG TCO2 28 mEq/L (20-26); Blood Gas Modality VC; Blood Gas PEEP 5 cm H2O; Blood Gas Respiration Rate 16; Blood Gas VT 600 cc
[2017-04-22 05:47] LABS: Albumin 2.5 g/dL (3.5-5.7); Calcium 8.4 mg/dL (8.6-10.3); Phosphorous 4.2 mg/dL (2.7-4.5); Potassium 3.7 mEq/L (3.5-5.1)
[2017-04-22 06:10] LABS: VBG Ionized Calcium 1.05 mmol/L (1.15-1.35); VBG PH 7.43 pH Units (7.32-7.42)
[2017-04-22] MEDS: amLODIPine 5 MG TABLET PO SCH (07:55)
[2017-04-22] MEDS: Aspirin 81 MG TAB.CHEW PO SCH (07:57)
[2017-04-22] MEDS: Chlorhexidine Rinse 15 ML MOUTHWASH MM SCH ×2 (07:57→19:38)
[2017-04-22] MEDS: *HR* Ticagrelor 90 MG TABLET PO SCH ×2 (07:57→19:40)
[2017-04-22 08:10] LABS: VBG Ionized Calcium 1.03 mmol/L (1.15-1.35)
[2017-04-22] MEDS: Calcium Chloride 4,000 MG in 0.9 % Sodium Chloride 1,000 ML CRRT SCH ×2 (08:24→17:12)
--- NOTE | 2017-04-22 08:26 | Pulmonology Progress Note ---
<SusuCiaran Sy - Last Filed: 04/22/17 16:23> Date of Encounter: 04/22/17 Time of Encounter: 07:30 Assessment and Plan (1) Septic shock Current Visit: Yes Status: Acute Secondary to Staph aureus bacteremia. Lactic acid improving Requiring hemodynamic support with norepinephrine and dopamine, titrated to MAP >65. Empiric antibiotics Levaquin Meropenem Vancomycin Consider de-escilating vancomycin tomorrow to more renal-friendly alternative. Repeat blood cultures today. (2) Acute respiratory failure with hypoxia Current Visit: Yes Status: Acute Secondary to hypoxia in the setting of septic shock. Now entering ARDS type picture. Lung protective measures. Will follow with ABG and titrate vent settings accordingly. Antibiotics as above. (3) Cardiac arrest Current Visit: Yes Status: Acute Cardiac arrest 04/21. PEA (6 rounds CPR, 4 rounds epi, 2A bicarb) to Sinus tachycardia to SVT (cardiovert x1 at 100J) to NSR. Cardiology consulted; suspect metabolic cause. Patient too unstable for LHC. This morning, with all sedation off, patient spontaneously awakes and follows commands. No seizure-like activity. (4) Coronary artery disease Current Visit: Yes Status: Chronic CABG 2013 Recent PTCA/RAMÍREZ to proximal circ with patent COOK to LAD on 04/16 Continue lipitor, aspirin, norvasc. Qualifiers: Coronary Disease-Associated Artery/Lesion type: [place] artery [place] vs. transplanted heart: [place] heart Associated angina: with other forms of angina Qualified Code(s): I25.118 - Atherosclerotic heart disease of [place] coronary artery with other forms of angina pectoris (5) Hematoma Current Visit: Yes Status: Acute Right rectus sheath hematoma per CTA abdomen pelvis 04/20 Negative workup for femoral artery pseudoaneursym. (arterial imaging) Per general surgery; hematoma without active bleed, no indication for surgical intervention at this time. Gen surg following. (6) Stage 3 acute kidney injury Current Visit: Yes Status: Acute Acute Kidney injury likely secondary to septic shock On MARTIN Renal function improving. Nephrology following. Subjective Principal diagnosis: Sepsis/Septic Shock Interval history: Hospital day 2/ Post cardiac arrest day 1 No acute events overnight. With sedation off, patient spontaneously opens his eyes and follows commands. He is able to move fingers and toes bilaterally. He is able to purposefully blink his eyes to answer to direct questions (Blink if you are in pain, Blink if you understand, etc). No seizure-like activity. Patient is off epinephrine drip and bicarbonate drip and in NSR. ABG pH improved overnight, now stable. Will discontinue bicarb drip. Renal function improving slightly on dialysis. Will continue to closely monitor his progress. He remains in a tenuous critical condition. 15:00 This afternoon, patient entered an ARDS type pulmonary picture. Ventilator was changed to assist control, patient deeply sedated and paralysed, and ARDS protocol settings followed. He is requiring varying amounts of norepinephrine and dopamine depending upon his PEEP. He remains unstable and critical. Objective PUL Vital signs: Last Vital Signs Temp 97.5 F L 04/22/17 08:00 Pulse 66 04/22/17 08:00 Resp 22 04/22/17 08:00 BP 98/54 04/22/17 08:00 Pulse Ox 95 04/22/17 08:00 General appearance: no acute distress, alert Eyes: nonicteric ENT: oropharynx moist Neck: supple Effort: normal Auscultation: left: diminished breath sounds, right: wheezes (faint expiratory) Cardiovascular: regular rate and rhythm Gastrointestinal: normoactive bowel sounds, soft, non-tender, non-distended Integumentary: normal Extremities: no cyanosis, no edema, no clubbing, pink and warm, pulses normal, no ischemia or petechiae Musculoskeletal: no deformities non-focal exam, pupils equal and round, other (able to move fingers and toes bilaterally to command) mood appropriate Ventilator Settings Ventilator Settings: Ventilator Settings, Last 8 Hours Ventilator Mode VC+ Ventilator Mode VC+ Ventilator Mode VC+ Ventilator Mode VC+ Ventilator Mode VC+ Ventilator Mode VC+ Ventilator Mode VC+ Ventilator Mode VC+ Ventilator Mode VC+ Ventilator Mode VC+ Ventilator Mode VC+ Ventilator Mode VC+ Ventilator Mode VC+ Ventilator Mode VC+ Ventilator Tidal Volume 500 Setting Ventilator Tidal Volume 500 Setting Ventilator Tidal Volume 600 Setting Ventilator Tidal Volume 600 Setting Ventilator Tidal Volume 600 Setting Ventilator Tidal Volume 600 Setting Ventilator Tidal Volume 600 Setting Ventilator Tidal Volume 600 Setting Ventilator Tidal Volume 600 Setting Ventilator Tidal Volume 600 Setting Ventilator Tidal Volume 600 Setting Ventilator Tidal Volume 600 Setting Ventilator Tidal Volume 600 Setting Ventilator Tidal Volume 600 Setting Ventilator Respiratory Rate 22 Setting Ventilator Respiratory Rate 22 Setting Ventilator Respiratory Rate 16 Setting Ventilator Respiratory Rate 16 Setting Ventilator Respiratory Rate 16 Setting Ventilator Respiratory Rate 16 Setting Ventilator Respiratory Rate 16 Setting Ventilator Respiratory Rate 16 Setting Ventilator Respiratory Rate 16 Setting Ventilator Respiratory Rate 16 Setting Ventilator Respiratory Rate 16 Setting Ventilator Respiratory Rate 16 Setting Ventilator Respiratory Rate 16 Setting Ventilator Respiratory Rate 16 Setting Actual Respiratory Rate 22 Actual Respiratory Rate 22 Actual Respiratory Rate 16 Actual Respiratory Rate 16 Actual Respiratory Rate 16 Actual Respiratory Rate 16 Actual Respiratory Rate 16 Actual Respiratory Rate 16 Actual Respiratory Rate 16 Actual Respiratory Rate 16 Actual Respiratory Rate 16 Actual Respiratory Rate 16 Positive End Expiratory 5 Pressure Positive End Expiratory 5 Pressure Positive End Expiratory 5 Pressure Positive End Expiratory 5 Pressure Positive End Expiratory 5 Pressure Positive End Expiratory 5 Pressure Positive End Expiratory 5 Pressure Positive End Expiratory 5 Pressure Positive End Expiratory 5 Pressure Positive End Expiratory 5 Pressure Positive End Expiratory 5 Pressure Positive End Expiratory 5 Pressure Positive End Expiratory 5 Pressure Positive End Expiratory 5 Pressure Peak Inspiratory Airway 24 Pressure Peak Inspiratory Airway 25 Pressure Peak Inspiratory Airway 27 Pressure Peak Inspiratory Airway 27 Pressure Peak Inspiratory Airway 27 Pressure Peak Inspiratory Airway 27 Pressure Peak Inspiratory Airway 28 Pressure Peak Inspiratory Airway 27 Pressure Peak Inspiratory Airway 27 Pressure Peak Inspiratory Airway 28 Pressure Peak Inspiratory Airway 28 Pressure Peak Inspiratory Airway 29 Pressure Results - Laboratory Findings CBC and BMP: 04/22/17 03:54 04/22/17 12:15 ABG ABG pH 7.42 pH Units (7.32-7.45) 04/22/17 05:13 ABG pCO2 41 mmHg (35-45) 04/22/17 05:13 ABG pO2 73 mmHg (85-104) L 04/22/17 05:13 ABG O2 Saturation 95 % (95-98) 04/22/17 05:13 PT/INR, D-dimer PT 16.2 Seconds (9.4-12.1) H 04/21/17 14:25 D-Dimer 5447 ng/mLFEU (0-500) H 04/21/17 05:41 Abnormal lab findings: Abnormal lab results RBC 3.22 M/mcL (4.19-5.50) L 04/22/17 03:54 Hgb 9.1 g/dL (12.9-16.9) L 04/22/17 03:54 Hct 25.7 % (37.5-50.1) L 04/22/17 03:54 MCV 79.8 fL (83.0-100.0) L 04/22/17 03:54 Plt Count 88 K/mcL (140-400) L 04/22/17 03:54 Band Neutrophils % 22.0 % (0-4) H 04/22/17 03:54 Metamyelocytes % 4.0 % (0) H 04/21/17 03:30 Nucleated RBCs/100 WBC 0.1 /100 WBC (0) H 04/21/17 03:30 Reactive Lymphocytes Present (Not Present) A 04/21/17 14:25 Toxic Granulation Present (Not Present) A 04/22/17 03:54 Toxic Vacuolation Present (Not Present) A 04/21/17 14:25 Platelet Estimate Decreased (Normal) L 04/22/17 03:54 Immature Plt Fraction 12.3 % (1.1-6.1) H 04/22/17 03:54 PT 16.2 Seconds (9.4-12.1) H 04/21/17 14:25 Fibrinogen 583 mg/dL (169-393) H 04/21/17 12:50 D-Dimer 5447 ng/mLFEU (0-500) H 04/21/17 05:41 ABG pO2 73 mmHg (85-104) L 04/22/17 05:13 ABG Total CO2 28 mEq/L (20-26) H 04/22/17 05:13 VBG pH 7.43 pH Units (7.32-7.42) H 04/22/17 06:08 VBG pCO2 76 mmHg (41-51) H* 04/21/17 14:57 VBG pO2 81 mmHg (25-50) H 04/21/17 14:57 BUN 51 mg/dL (8-23) H 04/22/17 03:54 Creatinine 3.91 mg/dL (0.70-1.30) H 04/22/17 03:54 Est GFR ( Amer) 19 (> 60) L 04/22/17 03:54 Est GFR (Non-Af Amer) 16 (> 60) L 04/22/17 03:54 Glucose 133 mg/dL (70-105) H 04/22/17 03:54 POC Glucose 136 (58-89) H 04/21/17 23:50 Calcium 8.4 mg/dL (8.6-10.3) L 04/22/17 03:54 Venous Ioniz Calcium 1.03 mmol/L (1.15-1.35) L 04/22/17 08:05 Direct Bilirubin 0.4 mg/dL (0.0-0.2) H 04/22/17 03:54 AST 264 Units/L (13-39) H 04/22/17 03:54 ALT 218 Units/L (7-52) H 04/22/17 03:54 Troponin I 4.23 ng/mL (< 0.04) H* 04/21/17 14:25 Serum Total Protein 4.7 g/dL (6.4-8.9) L 04/22/17 03:54 Albumin 2.5 g/dL (3.5-5.7) L 04/22/17 03:54 Globulin 2.2 g/dL (2.4-3.5) L 04/22/17 03:54 HDL Cholesterol 27 mg/dL (40-59) L 04/20/17 03:48 Vancomycin Trough 39.7 mcg/mL (10-20) H* 04/21/17 12:50 Staphylococcus sp PCR DETECTED (Not Detect) A 04/20/17 03:48 Staph aureus (PCR) DETECTED (Not Detect) A 04/20/17 03:48 - Microbiology Findings Microbiology Findings: Microbiology, Last 48 Hours 04/20/17 10:15 Wound Culture - Final Left Wrist - Abscess Staphylococcus aureus 04/20/17 03:48 Blood Culture - Final Peripheral Venipuncture Staphylococcus aureus 04/20/17 03:48 Blood Culture - Preliminary Peripheral Venipuncture Gram Positive Cocci - Clinical Findings Intake & Output: Intake & Output 04/21/17 04/22/17 04/22/17 23:59 07:59 15:59 Intake Total 1817 / 1817 1443 / 1443 925 / 925 Output Total 806 / 806 2487 / 2487 288 / 288 Balance 1011 / 1011 -1044 / -1044 637 / 637 Weight 99 kg Consult Discharge Plan - Plan Referrals: Kannan Hurley DO [Primary Care Provider] - Juan Lake [Family Provider] - <Lb Taylor W - Last Filed: 04/22/17 17:59> Date of Encounter: 04/22/17 Objective PUL Vital signs: Last Vital Signs Temp 97.5 F L 04/22/17 08:00 Pulse 66 04/22/17 08:00 Resp 22 04/22/17 08:00 BP 98/54 04/22/17 08:00 Pulse Ox 95 04/22/17 08:00 Ventilator Settings Ventilator Settings: Ventilator Settings, Last 8 Hours Ventilator Mode VC+ Ventilator Mode VC+ Ventilator Mode VC+ Ventilator Mode VC+ Ventilator Mode VC+ Ventilator Mode VC+ Ventilator Mode VC+ Ventilator Mode VC+ Ventilator Mode VC+ Ventilator Mode VC+ Ventilator Mode VC+ Ventilator Mode VC+ Ventilator Mode VC+ Ventilator Mode VC+ Ventilator Tidal Volume 500 Setting Ventilator Tidal Volume 500 Setting Ventilator Tidal Volume 600 Setting Ventilator Tidal Volume 600 Setting Ventilator Tidal Volume 600 Setting Ventilator Tidal Volume 600 Setting Ventilator Tidal Volume 600 Setting Ventilator Tidal Volume 600 Setting Ventilator Tidal Volume 600 Setting Ventilator Tidal Volume 600 Setting Ventilator Tidal Volume 600 Setting Ventilator Tidal Volume 600 Setting Ventilator Tidal Volume 600 Setting Ventilator Tidal Volume 600 Setting Ventilator Respiratory Rate 22 Setting Ventilator Respiratory Rate 22 Setting Ventilator Respiratory Rate 16 Setting Ventilator Respiratory Rate 16 Setting Ventilator Respiratory Rate 16 Setting Ventilator Respiratory Rate 16 Setting Ventilator Respiratory Rate 16 Setting Ventilator Respiratory Rate 16 Setting Ventilator Respiratory Rate 16 Setting Ventilator Respiratory Rate 16 Setting Ventilator Respiratory Rate 16 Setting Ventilator Respiratory Rate 16 Setting Ventilator Respiratory Rate 16 Setting Ventilator Respiratory Rate 16 Setting Actual Respiratory Rate 22 Actual Respiratory Rate 22 Actual Respiratory Rate 16 Actual Respiratory Rate 16 Actual Respiratory Rate 16 Actual Respiratory Rate 16 Actual Respiratory Rate 16 Actual Respiratory Rate 16 Actual Respiratory Rate 16 Actual Respiratory Rate 16 Actual Respiratory Rate 16 Actual Respiratory Rate 16 Positive End Expiratory 5 Pressure Positive End Expiratory 5 Pressure Positive End Expiratory 5 Pressure Positive End Expiratory 5 Pressure Positive End Expiratory 5 Pressure Positive End Expiratory 5 Pressure Positive End Expiratory 5 Pressure Positive End Expiratory 5 Pressure Positive End Expiratory 5 Pressure Positive End Expiratory 5 Pressure Positive End Expiratory 5 Pressure Positive End Expiratory 5 Pressure Positive End Expiratory 5 Pressure Positive End Expiratory 5 Pressure Peak Inspiratory Airway 24 Pressure Peak Inspiratory Airway 25 Pressure Peak Inspiratory Airway 27 Pressure Peak Inspiratory Airway 27 Pressure Peak Inspiratory Airway 27 Pressure Peak Inspiratory Airway 27 Pressure Peak Inspiratory Airway 28 Pressure Peak Inspiratory Airway 27 Pressure Peak Inspiratory Airway 27 Pressure Peak Inspiratory Airway 28 Pressure Peak Inspiratory Airway 28 Pressure Peak Inspiratory Airway 29 Pressure Results - Laboratory Findings CBC and BMP: 04/22/17 03:54 04/22/17 12:15 ABG ABG pH 7.42 pH Units (7.32-7.45) 04/22/17 05:13 ABG pCO2 41 mmHg (35-45) 04/22/17 05:13 ABG pO2 73 mmHg (85-104) L 04/22/17 05:13 ABG O2 Saturation 95 % (95-98) 04/22/17 05:13 PT/INR, D-dimer PT 16.2 Seconds (9.4-12.1) H 04/21/17 14:25 D-Dimer 5447 ng/mLFEU (0-500) H 04/21/17 05:41 Abnormal lab findings: Abnormal lab results RBC 3.22 M/mcL (4.19-5.50) L 04/22/17 03:54 Hgb 9.1 g/dL (12.9-16.9) L 04/22/17 03:54 Hct 25.7 % (37.5-50.1) L 04/22/17 03:54 MCV 79.8 fL (83.0-100.0) L 04/22/17 03:54 Plt Count 88 K/mcL (140-400) L 04/22/17 03:54 Band Neutrophils % 22.0 % (0-4) H 04/22/17 03:54 Metamyelocytes % 4.0 % (0) H 04/21/17 03:30 Nucleated RBCs/100 WBC 0.1 /100 WBC (0) H 04/21/17 03:30 Reactive Lymphocytes Present (Not Present) A 04/21/17 14:25 Toxic Granulation Present (Not Present) A 04/22/17 03:54 Toxic Vacuolation Present (Not Present) A 04/21/17 14:25 Platelet Estimate Decreased (Normal) L 04/22/17 03:54 Immature Plt Fraction 12.3 % (1.1-6.1) H 04/22/17 03:54 PT 16.2 Seconds (9.4-12.1) H 04/21/17 14:25 Fibrinogen 583 mg/dL (169-393) H 04/21/17 12:50 D-Dimer 5447 ng/mLFEU (0-500) H 04/21/17 05:41 ABG pO2 73 mmHg (85-104) L 04/22/17 05:13 ABG Total CO2 28 mEq/L (20-26) H 04/22/17 05:13 VBG pH 7.43 pH Units (7.32-7.42) H 04/22/17 06:08 VBG pCO2 76 mmHg (41-51) H* 04/21/17 14:57 VBG pO2 81 mmHg (25-50) H 04/21/17 14:57 BUN 51 mg/dL (8-23) H 04/22/17 03:54 Creatinine 3.91 mg/dL (0.70-1.30) H 04/22/17 03:54 Est GFR ( Amer) 19 (> 60) L 04/22/17 03:54 Est GFR (Non-Af Amer) 16 (> 60) L 04/22/17 03:54 Glucose 133 mg/dL (70-105) H 04/22/17 03:54 POC Glucose 136 (58-89) H 04/21/17 23:50 Calcium 8.4 mg/dL (8.6-10.3) L 04/22/17 03:54 Venous Ioniz Calcium 1.03 mmol/L (1.15-1.35) L 04/22/17 08:05 Direct Bilirubin 0.4 mg/dL (0.0-0.2) H 04/22/17 03:54 AST 264 Units/L (13-39) H 04/22/17 03:54 ALT 218 Units/L (7-52) H 04/22/17 03:54 Troponin I 4.23 ng/mL (< 0.04) H* 04/21/17 14:25 Serum Total Protein 4.7 g/dL (6.4-8.9) L 04/22/17 03:54 Albumin 2.5 g/dL (3.5-5.7) L 04/22/17 03:54 Globulin 2.2 g/dL (2.4-3.5) L 04/22/17 03:54 HDL Cholesterol 27 mg/dL (40-59) L 04/20/17 03:48 Vancomycin Trough 39.7 mcg/mL (10-20) H* 04/21/17 12:50 Staphylococcus sp PCR DETECTED (Not Detect) A 04/20/17 03:48 Staph aureus (PCR) DETECTED (Not Detect) A 04/20/17 03:48 - Microbiology Findings Microbiology Findings: Microbiology, Last 48 Hours 04/20/17 10:15 Wound Culture - Final Left Wrist - Abscess Staphylococcus aureus 04/20/17 03:48 Blood Culture - Final Peripheral Venipuncture Staphylococcus aureus 04/20/17 03:48 Blood Culture - Preliminary Peripheral Venipuncture Gram Positive Cocci - Clinical Findings Intake & Output: Intake & Output 04/21/17 04/22/17 04/22/17 23:59 07:59 15:59 Intake Total 1817 / 1817 1443 / 1443 1225 / 1225 Output Total 806 / 806 2487 / 2487 288 / 288 Balance 1011 / 1011 -1044 / -1044 937 / 937 Weight 99 kg - Attending Attestation I examined this patient and my medical decision-making was reviewed with the Resident Physician. I agree with the documented findings, disposition and treatment plan as described except to the extent set forth below. We independently had [id number] contact with the patient I spent 32min of Critical Care time with this patient. It involved decision making of high complexity to assess, manipulate, and support vital organ system failure and/or to prevent further life threatening deterioration of the patient' s condition. The time involved in the performance of separately reportable procedures was not counted toward critical care time. Patient seen and examined at bedside Labs, radiology, chart personally reviewed. Management was reviewed during multidisciplinary critical care rounds. AGILE QA TESTER: Sedated on vent postcardiac arrest was able to follow minimal commands which is encouraging holding sedation today to reassess neurological function Pulm: Acute Hypoxic hypercarbic respiratory failure secondary to sepsis on vent ; I adjusted vent to approximately 6 mL per KG of ideal body weight as patient is at increased risk of ARDS I will also monitor peak and plateau pressures which were acceptable today repeat ABG to ensure acceptable gas exchange Cards: Vasodilatory shock on Levophed goal MAP 65; status post cardiac arrest yesterday which is likely related to worsening acidosis which is been corrected. Targeted temperature regulation protocol not instituted because of inability for patient to follow commands postarrest. Recent PCI on the DAPT without evidence of hemorrhage we will monitor this closely the benefit of dual antiplatelet therapy at this time outweighs risk of hemorrhage including intra- abdominal hematoma FEN-GI: Continue enteral nutrition GI prophylaxis given Renal: Anuric Acute kidney injury secondary to ATN on CRRT nephrology following continue to monitor electrolytes and replace per protocol. Bicarbonate infusion today ID: Septic shock secondary to MSSA bacteremia patient has a cephalosporin allergy so we will continue to treat with vancomycin to be dosed by pharmacy repeat blood cultures today Heme/Onc: DVT prophylaxis given (SDCs because of recent hemorrhage). H&H stable platelets have decreased which is likely result of critical illness and sepsis Endo: Glucose Monitored; he remains on an insulin infusion for hyperglycemia Integ/MSK: Skin Care per routine ICU Nursing Protocol to prevent ulcers. Lines: All lines examined without evidence of infection : Dispo: Remain in ICU CODE: Full code I updated the patient's Carla at bedside and all questions were answered overall prognosis is guarded
[2017-04-22 08:42] LABS: ABG Base Excess 3 mEq/L (-2 to 3); ABG HCO3 27 mEq/L (21-27); ABG Oxygen Saturation 93 % (95-98); ABG PCO2 38 mmHg (35-45); ABG PH 7.46 pH Units (7.32-7.45); ABG PO2 64 mmHg (85-104); ABG TCO2 28 mEq/L (20-26); Blood Gas Modality VC; Blood Gas PEEP 5 cm H2O; Blood Gas Respiration Rate 22; Blood Gas VT 500 cc
[2017-04-22] MEDS ORDERED: Levofloxacin 750 MG/150 ML 750 MG/150 ML BAG IVPB SCH (10:00)
[2017-04-22 10:10] LABS: VBG Ionized Calcium 0.99 mmol/L (1.15-1.35)
--- NOTE | 2017-04-22 10:36 | Nephrology Progress Note ---
Date of Encounter: 04/22/17 Time of Encounter: 08:50 - Assessment and Plan (1) NANCY (acute kidney injury) Current Visit: Yes Status: Acute Cont CVVHDF for severe oliguric NANCY from septic shock, recent contrast and initally may have had high abd pressures affecting renal function, the latter had trended better. Initially he did not tolerate Nahomy and the filter and access pressures were not ideal, but I helped with several adjustments throughout the afternoon by phone to smooth out and continue Nahomy. Last filter change was at 1800 last night. He's now tolerating some UF. His UOP remains minimal after discussing with the WOOD CUTTER. Continue 4K/2.5Ca at 1000 dialysate and 1000 replacement fluid with Citrate/ Calcium for regional anticoagulation to help support the filter. Rec ramping upon the UF to Net+25 to 50mL/hr with a maximum ceiling of Net+75mL/ hr for the next 24hr. If hemodynamics worsen, then would need to dec UF rates. Renal dosing while on Nahomy: assume an effect GFR of near 30. Dose Vanco, if continued, by trough levels as discussed with the ICU team, and narrow the Antibiotic spectrum when able. Continue to follow a renal protective strategy and strict I/Os and daily weights. Will closely follow with you. (2) Hyponatremia Current Visit: Yes Status: Acute (3) Septic shock Current Visit: Yes Status: Acute Subjective Principal diagnosis: Sepsis/Septic Shock Interval history: Pt was s/e and coded yesterday afternoon but ROSC was achieved. Remains intubated. Initially he did not tolerate Nahomy and the filter and access pressures were not ideal, but I helped with several adjustments throughout the afternoon by phone to smooth out and continue Nahomy. Last filter change was at 1800 last night. He's now tolerating some UF. His UOP remains minimal after discussing with the WOOD CUTTER. Objective - Vital Signs Vital signs: Vital Signs Temp Pulse Resp BP Pulse Ox 04/22/17 10:00 65 22 87/51 96 04/22/17 09:50 22 89/49 94 04/22/17 09:00 66 22 110/56 95 04/22/17 08:00 97.5 F L 66 22 98/54 95 04/22/17 07:33 22 98/52 95 04/22/17 07:00 66 16 96/50 95 04/22/17 06:00 66 16 94/48 94 04/22/17 05:08 16 127/52 95 04/22/17 05:00 66 16 100/54 94 04/22/17 04:00 97.5 F L 64 16 106/54 97 04/22/17 03:18 16 94/55 96 04/22/17 03:00 64 16 98/57 97 04/22/17 02:00 66 16 106/65 97 04/22/17 01:15 16 105/61 96 04/22/17 01:00 67 16 104/60 95 04/22/17 00:00 97.6 F 69 16 106/59 95 04/21/17 23:21 16 119/68 95 04/21/17 23:00 73 16 112/64 95 04/21/17 22:00 74 16 102/59 96 04/21/17 21:22 16 93/55 97 04/21/17 21:00 75 16 108/55 98 04/21/17 20:00 97.5 F L 80 16 104/52 98 04/21/17 19:48 16 112/53 98 04/21/17 19:00 82 16 102/48 98 04/21/17 18:00 84 16 103/51 100 04/21/17 17:33 18 100/54 100 04/21/17 17:00 92 18 104/52 98 04/21/17 16:00 97.8 F 84 18 122/75 99 04/21/17 15:15 17 98/69 96 04/21/17 15:00 106 19 114/67 98 04/21/17 14:00 104 19 103/60 96 04/21/17 13:17 16 91/55 93 04/21/17 13:00 99 17 77/51 89 04/21/17 12:00 97.8 F 89 14 96/58 97 04/21/17 11:31 14 107/56 97 04/21/17 11:00 87 14 100/59 97 Intake and Output 04/21/17 04/22/17 04/22/17 23:59 07:59 15:59 Intake Total 1817 / 1817 1681 / 1681 1664.6 / 1664.6 Output Total 806 / 806 2487 / 2487 866 / 866 Balance 1011 / 1011 -806 / -806 798.6 / 798.6 Intake: IV Fluids 1817 / 1817 1681 / 1681 1644.6 / 1644.6 Calcium Chloride 4,000 MG In 0. 115 / 115 1145 / 1145 9 % Sodium Chloride 1,000 ML @ 40 mls/hr CRRT [facility] Rx#: [id number] PrismaSATE BGK 4/2.5 5,000 ML @ 0 / 0 1500 mls/hr CRRT [facility] Rx#: [id number] FentaNYL (PF) 1,000 MCG In 0.9 200 / 200 100 / 100 100 / 100 % Sodium Chloride 80 ML @ 50 MCG/HR 5 mls/hr IVC [facility] Rx #:[id number] HumuLIN R 100 UNIT In 0.9 % 24 / 24 103 / 103 5.6 / 5.6 Sodium Chloride 100 ML @ 12 UNIT/HR 12.12 mls/hr IVC [facility] Rx#:[id number] Versed 50 MG In 0.9 % Sodium 100 / 100 80 / 80 4 / 4 Chloride 90 ML @ 2 MG/HR 4 mls/ hr IVC [facility] Rx#:[id number] Levophed 8 MG In 0.9 % Sodium 8 / 8 Chloride 500 ML @ 5 MCG/MIN 19. 05 mls/hr IVC [facility] Rx#: [id number] Levophed 16 MG In Dextrose 5% 238 / 238 90 / 90 500 ML @ 25 MCG/MIN 48.37 mls/ hr IVC [facility] Rx#:[id number] Sodium Bicarbonate 150 MEQ In 0 1150 / 1150 1150 / 1150 300 / 300 .9 % Sodium Chloride 1,000 ML @ 150 mls/hr IVC .Q7H40M [facility] Rx# :[id number] Merrem 500 MG In Water for inj. 10 / 10 (sterile) 10 ML @ 200 mls/hr IVP Q12H [facility] Rx#:[id number] Calcium Gluconate 1,000 MG In 0 220 / 220 .9 % Sodium Chloride 100 ML @ 220 mls/hr IVPB ON[facility] Rx#: [id number] Free Water 20 / 20 Output: Nahomy 533 / 533 2440 / 2440 866 / 866 Catheter 223 / 223 47 / 47 0 / 0 Gastric Drainage 50 / 50 0 / 0 Other: Weight 99 kg Blood Glucose* 166 145 173 Patient Weight 04/22/17 23:59 Weight 99 kg - General Appearance General appearance: Present: moderate distress, sedated on ventilator, intubated EENT: Present: ATNC, PERRL Respiratory: Present: rhonchi Cardiology: Present: edema (trace hand and minimal pedal edema), regular rate, regular rhythm, normal S1, normal S2 Dialysis Vascular Access: Venous Catheter (Right femoral HD catheteer was C/D/I without ozzing or exudates.) Additional Comments: No longer distended and soft on examination. Integumentary: Present: warm and dry Neurologic: Present: no asterixis (but he is intubated/sedated, which limited the neuro examine) Musculoskeletal: Present: no erythema, no cyanosis - Lab 04/22/17 03:54 04/22/17 03:54 Most recent lab results ABG pH 7.46 pH Units (7.32-7.45) H 04/22/17 08:38 ABG pCO2 38 mmHg (35-45) 04/22/17 08:38 ABG pO2 64 mmHg (85-104) L 04/22/17 08:38 ABG HCO3 27 mEq/L (21-27) 04/22/17 08:38 ABG O2 Saturation 93 % (95-98) L 04/22/17 08:38 Calcium 8.4 mg/dL (8.6-10.3) L 04/22/17 03:54 Phosphorus 4.2 mg/dL (2.7-4.5) 04/22/17 03:54 Magnesium 2.2 mg/dL (1.6-2.6) 04/22/17 03:54 - Imaging Kidney/bladder ultrasound: image reviewed (no hydronephrosis) Consult Discharge Plan - Plan Referrals: Kannan Hurley DO [Primary Care Provider] - Juan Lake [Family Provider] -
[2017-04-22 11:47] LABS: ABG Base Excess 2 mEq/L (-2 to 3); ABG HCO3 26 mEq/L (21-27); ABG Oxygen Saturation 93 % (95-98); ABG PCO2 38 mmHg (35-45); ABG PH 7.45 pH Units (7.32-7.45); ABG PO2 65 mmHg (85-104); ABG TCO2 27 mEq/L (20-26); Blood Gas Modality VC; Blood Gas PEEP 5 cm H2O; Blood Gas Respiration Rate 22; Blood Gas VT 500 cc
[2017-04-22 12:16] LABS: VBG Ionized Calcium 1.11 mmol/L (1.15-1.35)
[2017-04-22 12:32] LABS: Albumin 2.5 g/dL (3.5-5.7); Calcium 9.1 mg/dL (8.6-10.3); Phosphorous 3.3 mg/dL (2.7-4.5); Potassium 3.8 mEq/L (3.5-5.1)
[2017-04-22 14:31] LABS: VBG Ionized Calcium 1.11 mmol/L (1.15-1.35)
[2017-04-22 14:49] LABS: ABG Base Excess 1 mEq/L (-2 to 3); ABG HCO3 27 mEq/L (21-27); ABG Oxygen Saturation 87 % (95-98); ABG PCO2 52 mmHg (35-45); ABG PH 7.32 pH Units (7.32-7.45); ABG PO2 58 mmHg (85-104); ABG TCO2 29 mEq/L (20-26)
--- NOTE | 2017-04-22 14:49 | General Surgery Progress Note ---
Date of Encounter: 04/22/17 Time of Encounter: 14:46 - Assessment and Plan (1) Abdominal compartment syndrome Current Visit: Yes Status: Acute 61M with respiratory failure, sepsis 2/2 pneumonia currently on pressors, on HD 2/2 acute renal failure; currently making urine that is clear; cardiac arrest - patient with ROSC after 4 rounds of epi; called due to concern for abdominal compartment syndrome; no peak pressures on ventilator, UOP is 2/2 sepsis but is currently resolving after dialysis; no surgery at present cont with supportive care observe for significantly increased peak inspiratory pressures and decrease in UOP despite supportive effors abdomen is soft - cont with serial exams; call with any questions or new concerns; Qualifiers: Compartment syndrome type: non-traumatic Qualified Code(s): M79.A3 - Nontraumatic compartment syndrome of abdomen Subjective Patient reports: other (still intubated, sedated; making urine) Objective Vital Signs - Last 8 Hours Temp Pulse Resp BP Pulse Ox 04/22/17 14:00 72 22 99/47 87 04/22/17 13:15 22 125/47 93 04/22/17 13:00 64 22 125/50 90 04/22/17 12:00 62 22 86/49 96 04/22/17 11:37 61 04/22/17 11:25 22 96/51 95 04/22/17 11:00 97.4 F L 61 22 98/52 95 04/22/17 10:00 65 22 87/51 96 04/22/17 09:50 22 89/49 94 04/22/17 09:00 66 22 110/56 95 04/22/17 08:00 97.5 F L 66 22 98/54 95 04/22/17 07:33 22 98/52 95 04/22/17 07:00 66 16 96/50 95 Intake and Output 04/21/17 04/22/17 04/22/17 23:59 07:59 15:59 Intake Total 1816 / 1816 1681 / 1681 2315.9 / 2315.9 Output Total 806 / 806 2487 / 2487 1965 / 1965 Balance 1011 / 1011 -806 / -806 349.9 / 349.9 Intake: IV Fluids 1816 / 1816 1681 / 1681 2261.9 / 2261.9 Calcium Chloride 4,000 MG In 0. 115 / 115 1385 / 1385 9 % Sodium Chloride 1,000 ML @ 40 mls/hr CRRT CONT [facility] Rx#: [id number] PrismaSATE BGK 4/2.5 5,000 ML @ 0 / 0 0 / 0 1500 mls/hr CRRT [facility] Rx#: [id number] FentaNYL (PF) 1,000 MCG In 0.9 200 / 200 100 / 100 100 / 100 % Sodium Chloride 80 ML @ 50 MCG/HR 5 mls/hr IVC [facility] Rx #:[id number] HumuLIN R 100 UNIT In 0.9 % 24 / 24 103 / 103 21.4 / 21.4 Sodium Chloride 100 ML @ 12 UNIT/HR 12.12 mls/hr IVC [facility] Rx#:[id number] Versed 50 MG In 0.9 % Sodium 100 / 100 80 / 80 6 / 6 Chloride 90 ML @ 2 MG/HR 4 mls/ hr IVC [facility] Rx#:[id number] Levophed 8 MG In 0.9 % Sodium 8 / 8 Chloride 500 ML @ 5 MCG/MIN 19. 05 mls/hr IVC [facility] Rx#: [id number] Levophed 16 MG In Dextrose 5% 238 / 238 179.5 / 179.5 500 ML @ 25 MCG/MIN 48.37 mls/ hr IVC [facility] Rx#:[id number] Sodium Bicarbonate 150 MEQ In 0 1150 / 1150 1150 / 1150 300 / 300 .9 % Sodium Chloride 1,000 ML @ 150 mls/hr IVC .Q7H40M [facility] Rx# :[id number] Merrem 500 MG In Water for inj. 10 / 10 10 / 10 (sterile) 10 ML @ 200 mls/hr IVP Q12H [facility] Rx#:[id number] Calcium Gluconate 1,000 MG In 0 220 / 220 110 / 110 .9 % Sodium Chloride 100 ML @ 220 mls/hr IVPB ONCE [facility] Rx#: [id number] Levaquin Premix 750mg/150 mL 150 / 150 750 mg In 150 ml @ 100 mls/hr IVPB Q48H [facility] Rx#:[id number] Tube Feeding 34 / 34 Free Water 20 / 20 Free Water Intake Amount 0 / 0 Output: Nahomy 533 / 533 2440 / 2440 1960 / 196 Catheter 223 / 223 47 / 47 5 / 5 Gastric Drainage 50 / 50 0 / 0 Other: Weight 99 kg Blood Glucose* 166 145 181 Patient Weight 04/22/17 23:59 Weight 99 kg - General physical appearance other (intubated, sedated) - Respiratory normal expansion - Cardiovascular Cardiovascular exam: Present: RRR - Abdomen Abdomen: Present: soft - Labs 04/22/17 03:54 04/22/17 12:15 Diabetes panel 04/21/17 04/22/17 04/22/17 Range/Units 14:25 03:54 03:54 Sodium 127 L 137 D (136-145) mEq/L Potassium 5.0 3.7 D (3.5-5.1) mEq/L Chloride 90 L 102 (98-107) mEq/L Carbon Dioxide 20 L 25 (23-29) mEq/L BUN 65 H 51 H (8-23) mg/dL Creatinine 5.68 H 3.91 H (0.70-1.30) mg/dL Glucose 471 H 133 H (70-105) mg/dL Calcium 7.0 L 8.4 L (8.6-10.3) mg/dL AST 368 H 264 H (13-39) Units/L ALT 282 H 218 H (7-52) Units/L Alkaline Phosphatase 56 43 (34-104) Units/L Albumin 2.6 L 2.5 L 2.5 L (3.5-5.7) g/dL 04/22/17 Range/Units 12:15 Sodium 137 (136-145) mEq/L Potassium 3.8 (3.5-5.1) mEq/L Chloride 102 (98-107) mEq/L Carbon Dioxide 26 (23-29) mEq/L BUN 43 H (8-23) mg/dL Creatinine 3.27 H (0.70-1.30) mg/dL Glucose 177 H (70-105) mg/dL Calcium 9.1 (8.6-10.3) mg/dL AST (13-39) Units/L ALT (7-52) Units/L Alkaline Phosphatase (34-104) Units/L Albumin 2.5 L (3.5-5.7) g/dL Calcium panel 04/21/17 04/22/17 04/22/17 Range/Units 14:25 03:54 03:54 Calcium 7.0 L 8.4 L (8.6-10.3) mg/dL Phosphorus 4.2 (2.7-4.5) mg/dL Albumin 2.6 L 2.5 L 2.5 L (3.5-5.7) g/dL 04/22/17 Range/Units 12:15 Calcium 9.1 (8.6-10.3) mg/dL Phosphorus 3.3 (2.7-4.5) mg/dL Albumin 2.5 L (3.5-5.7) g/dL Pituitary panel 04/21/17 04/22/17 04/22/17 Range/Units 14:25 03:54 12:15 Sodium 127 L 137 D 137 (136-145) mEq/L Potassium 5.0 3.7 D 3.8 (3.5-5.1) mEq/L Chloride 90 L 102 102 (98-107) mEq/L Carbon Dioxide 20 L 25 26 (23-29) mEq/L BUN 65 H 51 H 43 H (8-23) mg/dL Creatinine 5.68 H 3.91 H 3.27 H (0.70-1.30) mg/dL Glucose 471 H 133 H 177 H (70-105) mg/dL Calcium 7.0 L 8.4 L 9.1 (8.6-10.3) mg/dL Adrenal panel 04/21/17 04/22/17 04/22/17 Range/Units 14:25 03:54 03:54 Sodium 127 L 137 D (136-145) mEq/L Potassium 5.0 3.7 D (3.5-5.1) mEq/L Chloride 90 L 102 (98-107) mEq/L Carbon Dioxide 20 L 25 (23-29) mEq/L BUN 65 H 51 H (8-23) mg/dL Creatinine 5.68 H 3.91 H (0.70-1.30) mg/dL Glucose 471 H 133 H (70-105) mg/dL Calcium 7.0 L 8.4 L (8.6-10.3) mg/dL Total Bilirubin 1.2 H 0.9 (0.3-1.0) mg/dL AST 368 H 264 H (13-39) Units/L ALT 282 H 218 H (7-52) Units/L Alkaline Phosphatase 56 43 (34-104) Units/L Albumin 2.6 L 2.5 L 2.5 L (3.5-5.7) g/dL 04/22/17 Range/Units 12:15 Sodium 137 (136-145) mEq/L Potassium 3.8 (3.5-5.1) mEq/L Chloride 102 (98-107) mEq/L Carbon Dioxide 26 (23-29) mEq/L BUN 43 H (8-23) mg/dL Creatinine 3.27 H (0.70-1.30) mg/dL Glucose 177 H (70-105) mg/dL Calcium 9.1 (8.6-10.3) mg/dL Total Bilirubin (0.3-1.0) mg/dL AST (13-39) Units/L ALT (7-52) Units/L Alkaline Phosphatase (34-104) Units/L Albumin 2.5 L (3.5-5.7) g/dL Consult Discharge Plan - Plan Referrals: Kannan Hurley DO [Primary Care Provider] - Juan Lake [Family Provider] -
[2017-04-22] MEDS ORDERED: *HR* Vecuronium 10 MG VIAL ONE (14:55)
[2017-04-22] MEDS ORDERED: *HR* Midazolam HCl 5 MG/5 ML VIAL IVP ONE ×2 (14:57)
[2017-04-22] MEDS ORDERED: *HR* Vecuronium 10 MG VIAL IVP ONE (14:58)
[2017-04-22] MEDS ORDERED: Vecuronium 50 MG in 0.9 % Sodium Chloride 200 ML IVC SCH (15:00)
[2017-04-22] MEDS: Norepinephrine 16 MG in D5% in Water 500 ML IVC SCH (15:51)
[2017-04-22] MEDS: EPINEPHrine 1 MG in 0.9 % Sodium Chloride 250 ML IVC SCH (16:14)
[2017-04-22 16:20] LABS: VBG PH 7.24 pH Units (7.32-7.42)
[2017-04-22 17:34] LABS: ABG Base Excess 1 mEq/L (-2 to 3); ABG HCO3 28 mEq/L (21-27); ABG Oxygen Saturation 97 % (95-98); ABG PCO2 55 mmHg (35-45); ABG PH 7.31 pH Units (7.32-7.45); ABG PO2 100 mmHg (85-104); ABG TCO2 29 mEq/L (20-26); Blood Gas Modality ASSIST CONTROL; Blood Gas PEEP 12 cm H2O; Blood Gas Respiration Rate 22; Blood Gas VT 450 cc
[2017-04-22 18:03] LABS: VBG Ionized Calcium 1.17 mmol/L (1.15-1.35); VBG PH 7.25 pH Units (7.32-7.42)
[2017-04-22 21:48] LABS: ABG Base Excess 2 mEq/L (-2 to 3); ABG HCO3 28 mEq/L (21-27); ABG Oxygen Saturation 98 % (95-98); ABG PCO2 51 mmHg (35-45); ABG PH 7.35 pH Units (7.32-7.45); ABG PO2 103 mmHg (85-104); ABG TCO2 30 mEq/L (20-26); Blood Gas Modality ASSIST CONTROL; Blood Gas PEEP 12 cm H2O; Blood Gas Respiration Rate 22; Blood Gas VT 450 cc
[2017-04-22] MEDS: Vecuronium 50 MG in 0.9 % Sodium Chloride 150 ML IVC SCH (22:55)
[2017-04-23] MEDS: Lacri-Lube 3.5 GM TUBE BOTH EYES SCH ×7 (00:21→23:16)
[2017-04-23 00:24] LABS: VBG Ionized Calcium 1.15 mmol/L (1.15-1.35); VBG PH 7.24 pH Units (7.32-7.42)
[2017-04-23] MEDS: Meropenem 500 MG in Water for inj. (sterile) 20 ML 10 ML IVP SCH ×2 (00:47→12:28)
[2017-04-23] MEDS: Calcium Chloride 4,000 MG in 0.9 % Sodium Chloride 1,000 ML CRRT SCH ×3 (00:58→16:40)
[2017-04-23] MEDS: Dexmedetomidine HCl 400 MCG/100 ML MLS IVC SCH ×2 (01:33→19:28)
[2017-04-23 03:28] LABS: Mean Platelet Volume 11.6 fL (9.4-12.4)
[2017-04-23] MEDS: FentaNYL (PF) 1,000 MCG in 0.9 % Sodium Chloride 80 ML IVC SCH ×5 (03:28→22:14)
[2017-04-23 03:29] LABS: Hematocrit 27.5 % (37.5-50.1); Immature Platelets 9.4 % (1.1-6.1); Mean Corpuscular HGB Conc 32.7 g/dL (31.6-35.5); Mean Corpuscular Hemoglobin 27.5 pg (28.0-33.3); Mean Corpuscular Volume 84.1 fL (83.0-100.0); Nucleated Red Blood Cells 0.2 /100 WBC (0); Red Blood Count 3.27 M/mcL (4.19-5.50); Red Cell Distribution Width 13.5 % (11.5-14.5)
[2017-04-23 03:34] LABS: Platelet Count 87 K/mcL (140-400)
[2017-04-23 03:39] LABS: Albumin 2.5 g/dL (3.5-5.7); Bilirubin,Direct 0.3 mg/dL (0.0-0.2); Bilirubin,Indirect 0.5 mg/dL (0.0-1.2); Bilirubin,Total 0.8 mg/dL (0.3-1.0); Calcium 10.4 mg/dL (8.6-10.3); Globulin 2.4 g/dL (2.4-3.5); Magnesium 2.2 mg/dL (1.6-2.6); Phosphorous 3.4 mg/dL (2.7-4.5); Potassium 4.1 mEq/L (3.5-5.1); Total Protein 4.9 g/dL (6.4-8.9)
[2017-04-23 03:54] LABS: ABG Base Excess 2 mEq/L (-2 to 3); ABG HCO3 28 mEq/L (21-27); ABG Oxygen Saturation 97 % (95-98); ABG PCO2 48 mmHg (35-45); ABG PH 7.37 pH Units (7.32-7.45); ABG PO2 96 mmHg (85-104); ABG TCO2 29 mEq/L (20-26); Blood Gas Modality ASSIST CONTROL; Blood Gas PEEP 12 cm H2O; Blood Gas Respiration Rate 22; Blood Gas VT 450 cc
[2017-04-23] MEDS: PrismaSATE BGK 4/2.5 5,000 ML CRRT SCH ×8 (04:27→20:36)
[2017-04-23 04:43] LABS: Lymphocytes # 0.9 K/mcL (0.6-4.6); Monocytes # 0.5 K/mcL (0.0-1.3); Neutrophils # 11.4 K/mcL (1.6-8.9); Platelet Estimate Decreased (Normal); Toxic Granulation Present (Not Present)
[2017-04-23] MEDS: Pantoprazole 40 MG VIAL IVP SCH ×2 (05:17→17:45)
[2017-04-23 06:45] LABS: VBG HCO3 28 mEq/L (21-27); VBG PCO2 60 mmHg (41-51); VBG PH 7.27 pH Units (7.32-7.42); VBG PO2 71 mmHg (25-50)
[2017-04-23 07:19] LABS: VBG Ionized Calcium 1.19 mmol/L (1.15-1.35); VBG PH 7.31 pH Units (7.32-7.42)
[2017-04-23] MEDS: amLODIPine 5 MG TABLET PO SCH (07:26)
[2017-04-23] MEDS: Vecuronium 50 MG in 0.9 % Sodium Chloride 150 ML IVC SCH ×2 (07:52→18:30)
[2017-04-23] MEDS ORDERED: Aminoglycoside Consult 1 EACH MC ONE (08:16)
[2017-04-23] MEDS: Chlorhexidine Rinse 15 ML MOUTHWASH MM SCH ×2 (08:31→20:36)
[2017-04-23] MEDS: *HR* Ticagrelor 90 MG TABLET PO SCH ×2 (08:31→20:36)
[2017-04-23] MEDS: Aspirin 81 MG TAB.CHEW PO SCH (08:31)
--- NOTE | 2017-04-23 09:38 | Nephrology Progress Note ---
Date of Encounter: 04/23/17 Time of Encounter: 07:45 - Assessment and Plan (1) NANCY (acute kidney injury) Current Visit: Yes Status: Acute Continue Nahomy 4K/2.5Ca at 1000 dialysate and 1000 replacement fluid with Citrate/Calcium for regional anticoagulation to help support the filter. The the effluent dose is <25, he is now tolerating the Nahomy when before he did not d/t hypotension. Rec ramping upon the UF to Net+25 to 50mL/hr with a maximum ceiling of Net+75mL/ hr for the next 24hr. If hemodynamics worsen, then would need to dec UF rates. Renal dosing while on Nahomy: assume an effect GFR of near 30. Dose Vanco, if continued, by trough levels as discussed with the ICU team, and narrow the Antibiotic spectrum when able. Continue to follow a renal protective strategy and strict I/Os and daily weights. Will closely follow with you. (2) Hyponatremia Current Visit: Yes Status: Acute (3) Abdominal compartment syndrome Current Visit: Yes Status: Acute Qualifiers: Compartment syndrome type: non-traumatic Qualified Code(s): M79.A3 - Nontraumatic compartment syndrome of abdomen (4) Septic shock Current Visit: Yes Status: Acute Subjective Principal diagnosis: Sepsis/Septic Shock Interval history: Pt was s/e and remains intubated thus limiting subjective history. I discussed CRRT with the POWER REGULATOR: the Nahomy filter remains intact since the prior evening; tolerating about Net+25-50mL/hr; and HD catheter was working without problems, she affirmed. Objective - Vital Signs Vital signs: Vital Signs Temp Pulse Resp BP Pulse Ox 04/23/17 09:00 56 22 105/55 99 04/23/17 08:00 96.8 F L 58 22 118/67 97 04/23/17 07:57 22 131/70 96 04/23/17 07:00 64 22 137/87 99 04/23/17 06:27 64 22 134/74 99 04/23/17 05:36 22 121/70 98 04/23/17 05:00 65 22 156/72 99 04/23/17 04:00 97.6 F 65 22 124/65 99 04/23/17 03:30 65 04/23/17 03:16 22 132/70 98 04/23/17 03:00 65 22 140/70 98 04/23/17 02:00 67 22 130/67 98 04/23/17 01:40 66 22 128/66 98 04/23/17 01:18 22 131/65 98 04/23/17 00:30 65 22 163/63 98 04/22/17 23:54 22 131/56 96 04/22/17 23:30 97.4 F L 66 22 109/56 98 04/22/17 22:00 66 22 124/61 97 04/22/17 21:36 22 160/62 97 04/22/17 21:22 66 22 168/65 97 04/22/17 20:00 97.5 F L 64 22 142/62 97 04/22/17 19:36 22 124/59 97 04/22/17 19:30 64 04/22/17 19:00 67 22 114/59 97 04/22/17 18:00 69 22 116/50 97 04/22/17 17:16 22 103/57 96 04/22/17 17:00 71 22 103/57 96 04/22/17 16:00 97.7 F 72 22 121/56 96 04/22/17 15:35 22 133/47 88 04/22/17 15:30 72 04/22/17 14:00 72 22 99/47 87 04/22/17 13:15 22 125/47 93 04/22/17 13:00 64 22 125/50 90 04/22/17 12:00 62 22 86/49 96 04/22/17 11:37 61 04/22/17 11:25 22 96/51 95 04/22/17 11:00 97.4 F L 61 22 98/52 95 04/22/17 10:00 65 22 87/51 96 04/22/17 09:50 22 89/49 94 Intake and Output 04/22/17 04/23/17 04/23/17 23:59 07:59 15:59 Intake Total 1031.94 / 1031.94 1792.9 / 1792.9 1064.3 / 1064.3 Output Total 1757 / 1757 1996 330 / 330 Balance -725.06 / -725.06 -204.1 / -204.1 734.3 / 734.3 Intake: IV Fluids 929.94 / 929.94 1706.9 / 1706.9 1045.3 / 1045.3 Calcium Chloride 4,000 MG In 0. 330 / 330 1040 / 1040 1040 / 1040 9 % Sodium Chloride 1,000 ML @ 40 mls/hr CRRT CONT [facility] Rx#: [id number] PrismaSATE BGK 4/2.5 5,000 ML @ 0 / 0 0 / 0 1500 mls/hr CRRT [facility] Rx#: [id number] FentaNYL (PF) 1,000 MCG In 0.9 100 / 100 200 / 200 % Sodium Chloride 80 ML @ 50 MCG/HR 5 mls/hr IVC [facility] Rx #:[id number] HumuLIN R 100 UNIT In 0.9 % 49.54 / 49.54 41.3 / 41.3 5.3 / 5.3 Sodium Chloride 100 ML @ 12 UNIT/HR 12.12 mls/hr IVC [facility] Rx#:[id number] Versed 50 MG In 0.9 % Sodium 0.5 / 0.5 99.5 / 99.5 Chloride 90 ML @ 2 MG/HR 4 mls/ hr IVC [facility] Rx#:[id number] Levophed 16 MG In Dextrose 5% 162.1 / 162.1 163.9 / 163.9 500 ML @ 25 MCG/MIN 48.37 mls/ hr IVC [facility] Rx#:[id number] Norcuron 50 MG In 0.9 % Sodium 37.8 / 37.8 142.2 / 142.2 Chloride 150 ML @ 0.8 MCG/KG/ MIN 14.25 mls/hr IVC [facility] Rx#:[id number] Merrem 500 MG In Water for inj. 20 / 20 (sterile) 10 ML @ 200 mls/hr IVP Q12H [facility] Rx#:[id number] Vancocin 1,500 MG In 0.9 % 250 / 250 Sodium Chloride 250 ML @ 167 mls/hr IVPB Q12H [facility] Rx#: [id number] Tube Feeding 62 / 62 66 / 66 Free Water Intake Amount 40 / 40 Output: Nahomy 1685 / 1685 1947 / 1947 313 / 313 Catheter 72 / 72 50 / 50 Other: Weight 105.4 kg Blood Glucose* 149 144 140 Patient Weight 04/23/17 23:59 Weight 105.4 kg - General Appearance Exam: General appearance: Present: sedated on ventilator, intubated EENT: Present: ATNC, PERRL, mucous membranes moist Neck: Present: supple Respiratory: Present: clear Cardiology: Present: edema (less than 1+ hand edema b/l and trace to 1+ pedal edema b/l), regular rate, regular rhythm, normal S1, normal S2 Dialysis Vascular Access: Venous Catheter (Right femoral HD catheter was C/D/I and without exudates.) Gastrointestinal: Present: normoactive bowel sounds, no tenderness, no guarding Integumentary: Present: no rash, warm and dry Neurologic: Present: no asterixis Additional Comments: Intubated and sedated Musculoskeletal: Present: no cyanosis, no clubbing - Lab 04/24/17 03:55 04/24/17 03:55 Most recent lab results ABG pH 7.37 pH Units (7.32-7.45) 04/23/17 03:51 ABG pCO2 48 mmHg (35-45) H 04/23/17 03:51 ABG pO2 96 mmHg (85-104) 04/23/17 03:51 ABG HCO3 28 mEq/L (21-27) H 04/23/17 03:51 ABG O2 Saturation 97 % (95-98) 04/23/17 03:51 Calcium 10.4 mg/dL (8.6-10.3) H 04/23/17 03:00 Phosphorus 3.4 mg/dL (2.7-4.5) 04/23/17 03:00 Magnesium 2.2 mg/dL (1.6-2.6) 04/23/17 03:00 - VTE Documentation of Mechanical Device: Intermittent pneumatic compression device Consult Discharge Plan - Plan Referrals: Kannan Hurley DO [Primary Care Provider] - Juan Lake [Family Provider] -
--- NOTE | 2017-04-23 09:51 | Pulmonology Progress Note ---
<Segundo Fairbanks - Last Filed: 04/23/17 16:04> Date of Encounter: 04/23/17 Time of Encounter: 01:15 Assessment and Plan (1) Septic shock Current Visit: Yes Status: Acute Secondary to Staph aureus bacteremia. Lactic acid improving Requiring hemodynamic support with norepinephrine and dopamine, titrated to MAP >65. Has been experiencing bradycardia requiring down-titration of levophed and uptitration of dopamine We will discontinue Vancomycin due to MSSA, and we will stop Levaquin because he is not sensitive Meropenem day 2 Nafcillin Day 1 Repeat cultures pending, consider LYDIA if positive (2) Acute respiratory failure with hypoxia Current Visit: Yes Status: Acute Secondary to hypoxia in the setting of septic shock Lung protective measures. Will follow with ABG and titrate vent settings accordingly. Antibiotics as above. (3) Cardiac arrest Current Visit: Yes Status: Resolved Cardiac arrest 04/21. PEA (6 rounds CPR, 4 rounds epi, 2A bicarb) to Sinus tachycardia to SVT (cardiovert x1 at 100J) to NSR. Cardiology consulted; suspect metabolic cause. Patient too unstable for LHC. Patient remains sedated, no seizure-like activity. (4) NANCY (acute kidney injury) Current Visit: Yes Status: Acute Acute Kidney injury likely secondary to septic shock On MARTIN Renal function improving. Nephrology following. (5) Hematoma Current Visit: Yes Status: Acute Right rectus sheath hematoma per CTA abdomen pelvis 04/20 Negative workup for femoral artery pseudoaneursym. (arterial imaging) Per general surgery; hematoma without active bleed, no indication for surgical intervention at this time. Gen surg following. (6) DVT prophylaxis Current Visit: Yes Status: Acute SCDs Subjective Principal diagnosis: Sepsis/Septic Shock Interval history: The patient remains sedated, and does not appear to be distressed. There has been significant bleeding from the site of the left subclavian CVC which required additional sutures. The family is at bedside, all questions answered. Objective PUL Vital signs: Last Vital Signs Temp 96.8 F L 04/23/17 08:00 Pulse 56 04/23/17 09:00 Resp 22 04/23/17 09:00 BP 105/55 04/23/17 09:00 Pulse Ox 99 04/23/17 09:00 General appearance: no acute distress, asleep, comatose Eyes: nonicteric ENT: oropharynx moist Neck: supple, no lymphadenopathy, no JVD Effort: normal Auscultation: bilateral: clear Cardiovascular: regular rate and rhythm Gastrointestinal: soft, non-distended Integumentary: normal, other (Small lesion on left wrist with surrounding erythema) Extremities: no cyanosis, no edema, no clubbing, pink and warm Musculoskeletal: no deformities unable to assess due to mental status Ventilator Settings Ventilator Settings: Ventilator Settings, Last 8 Hours Ventilator Mode A/C Ventilator Mode A/C Ventilator Mode A/C Ventilator Mode A/C Ventilator Mode A/C Ventilator Mode A/C Ventilator Mode A/C Ventilator Mode A/C Ventilator Mode A/C Ventilator Mode A/C Ventilator Mode A/C Ventilator Tidal Volume 450 Setting Ventilator Tidal Volume 450 Setting Ventilator Tidal Volume 450 Setting Ventilator Tidal Volume 450 Setting Ventilator Tidal Volume 450 Setting Ventilator Tidal Volume 450 Setting Ventilator Tidal Volume 450 Setting Ventilator Tidal Volume 450 Setting Ventilator Tidal Volume 450 Setting Ventilator Tidal Volume 450 Setting Ventilator Tidal Volume 450 Setting Ventilator Respiratory Rate 22 Setting Ventilator Respiratory Rate 22 Setting Ventilator Respiratory Rate 22 Setting Ventilator Respiratory Rate 22 Setting Ventilator Respiratory Rate 22 Setting Ventilator Respiratory Rate 22 Setting Ventilator Respiratory Rate 22 Setting Ventilator Respiratory Rate 22 Setting Ventilator Respiratory Rate 22 Setting Ventilator Respiratory Rate 22 Setting Ventilator Respiratory Rate 22 Setting Actual Respiratory Rate 22 Actual Respiratory Rate 22 Actual Respiratory Rate 22 Actual Respiratory Rate 22 Actual Respiratory Rate 22 Actual Respiratory Rate 22 Actual Respiratory Rate 22 Actual Respiratory Rate 22 Actual Respiratory Rate 22 Actual Respiratory Rate 22 Positive End Expiratory 12 Pressure Positive End Expiratory 12 Pressure Positive End Expiratory 12 Pressure Positive End Expiratory 12 Pressure Positive End Expiratory 12 Pressure Positive End Expiratory 12 Pressure Positive End Expiratory 12 Pressure Positive End Expiratory 12 Pressure Positive End Expiratory 12 Pressure Positive End Expiratory 12 Pressure Positive End Expiratory 12 Pressure Peak Inspiratory Airway 32 Pressure Peak Inspiratory Airway 32 Pressure Peak Inspiratory Airway 32 Pressure Peak Inspiratory Airway 31 Pressure Peak Inspiratory Airway 32 Pressure Peak Inspiratory Airway 32 Pressure Peak Inspiratory Airway 32 Pressure Peak Inspiratory Airway 32 Pressure Peak Inspiratory Airway 32 Pressure Results - Laboratory Findings CBC and BMP: 04/23/17 03:00 04/23/17 03:00 ABG ABG pH 7.37 pH Units (7.32-7.45) 04/23/17 03:51 ABG pCO2 48 mmHg (35-45) H 04/23/17 03:51 ABG pO2 96 mmHg (85-104) 04/23/17 03:51 ABG O2 Saturation 97 % (95-98) 04/23/17 03:51 PT/INR, D-dimer PT 16.2 Seconds (9.4-12.1) H 04/21/17 14:25 D-Dimer 5447 ng/mLFEU (0-500) H 04/21/17 05:41 Abnormal lab findings: Abnormal lab results WBC 12.9 K/mcL (4.3-11.1) H 04/23/17 03:00 RBC 3.27 M/mcL (4.19-5.50) L 04/23/17 03:00 Hgb 9.0 g/dL (12.9-16.9) L 04/23/17 03:00 Hct 27.5 % (37.5-50.1) L 04/23/17 03:00 MCH 27.5 pg (28.0-33.3) L 04/23/17 03:00 Plt Count 87 K/mcL (140-400) L 04/23/17 03:00 Band Neutrophils % 11.0 % (0-4) H 04/23/17 03:00 Metamyelocytes % 4.0 % (0) H 04/21/17 03:30 Myelocytes % 1.0 % (0) H 04/23/17 03:00 Neutrophils # 11.4 K/mcL (1.6-8.9) H 04/23/17 03:00 Nucleated RBCs/100 WBC 0.2 /100 WBC (0) H 04/23/17 03:00 Reactive Lymphocytes Present (Not Present) A 04/21/17 14:25 Toxic Granulation Present (Not Present) A 04/23/17 03:00 Toxic Vacuolation Present (Not Present) A 04/21/17 14:25 Platelet Estimate Decreased (Normal) L 04/23/17 03:00 Immature Plt Fraction 9.4 % (1.1-6.1) H 04/23/17 03:00 PT 16.2 Seconds (9.4-12.1) H 04/21/17 14:25 Fibrinogen 583 mg/dL (169-393) H 04/21/17 12:50 D-Dimer 5447 ng/mLFEU (0-500) H 04/21/17 05:41 ABG pCO2 48 mmHg (35-45) H 04/23/17 03:51 ABG HCO3 28 mEq/L (21-27) H 04/23/17 03:51 ABG Total CO2 29 mEq/L (20-26) H 04/23/17 03:51 VBG pH 7.31 pH Units (7.32-7.42) L 04/23/17 07:17 VBG pCO2 60 mmHg (41-51) H 04/23/17 06:43 VBG pO2 71 mmHg (25-50) H 04/23/17 06:43 VBG HCO3 28 mEq/L (21-27) H 04/23/17 06:43 BUN 37 mg/dL (8-23) H 04/23/17 03:00 Creatinine 2.96 mg/dL (0.70-1.30) H 04/23/17 03:00 Est GFR ( Amer) 26 (> 60) L 04/23/17 03:00 Est GFR (Non-Af Amer) 22 (> 60) L 04/23/17 03:00 Glucose 123 mg/dL (70-105) H 04/23/17 03:00 POC Glucose 164 (58-89) H 04/23/17 00:12 Calcium 10.4 mg/dL (8.6-10.3) H 04/23/17 03:00 Direct Bilirubin 0.3 mg/dL (0.0-0.2) H 04/23/17 03:00 AST 126 Units/L (13-39) H 04/23/17 03:00 ALT 170 Units/L (7-52) H 04/23/17 03:00 Troponin I 4.23 ng/mL (< 0.04) H* 04/21/17 14:25 Serum Total Protein 4.9 g/dL (6.4-8.9) L 04/23/17 03:00 Albumin 2.5 g/dL (3.5-5.7) L 04/23/17 03:00 Albumin/Globulin Ratio 1.0 (1.1-2.2) L 04/23/17 03:00 HDL Cholesterol 27 mg/dL (40-59) L 04/20/17 03:48 Vancomycin Trough 39.7 mcg/mL (10-20) H* 04/21/17 12:50 Staphylococcus sp PCR DETECTED (Not Detect) A 04/20/17 03:48 Staph aureus (PCR) DETECTED (Not Detect) A 04/20/17 03:48 - Microbiology Findings Microbiology Findings: Microbiology, Last 48 Hours 04/20/17 10:15 Anaerobic Culture - Preliminary Left Wrist - Abscess At this time, no anaerobic growth is present. The culture will be finalized after 5 days of incubation. 04/20/17 03:48 Blood Culture - Final Peripheral Venipuncture Staphylococcus aureus 04/20/17 03:48 Blood Culture - Final Peripheral Venipuncture Staphylococcus aureus 04/20/17 10:15 Wound Culture - Final Left Wrist - Abscess Staphylococcus aureus - Clinical Findings Intake & Output: Intake & Output 04/22/17 04/23/17 04/23/17 23:59 07:59 15:59 Intake Total 1031.94 / 1031.94 1792.9 / 1792.9 1064.3 / 1064.3 Output Total 1757 / 1757 1996 / 1996 330 / 330 Balance -725.06 / -725.06 -204.1 / -204.1 734.3 / 734.3 Weight 105.4 kg Pulmonary Procedures - Laceration Laceration 1 Site: chest (CVC Catheter insertion site) Side (if applicable): left Description: clean Depth: simple, single layer Skin layer closed with: vicryl Size: 4-0 Number of sutures: 2 Technique: simple, interrupted - VTE Documentation of Mechanical Device: Intermittent pneumatic compression device Consult Discharge Plan - Plan Referrals: Kannan Hurley DO [Primary Care Provider] - Juan Lake [Family Provider] - <Dmitri Mckeon - Last Filed: 04/23/17 22:57> Date of Encounter: 04/23/17 Objective PUL Vital signs: Last Vital Signs Temp 98.2 F 04/23/17 20:00 Pulse 81 04/23/17 22:00 Resp 22 04/23/17 22:00 BP 131/55 04/23/17 22:00 Pulse Ox 93 04/23/17 22:00 Ventilator Settings Ventilator Settings: Ventilator Settings, Last 8 Hours Ventilator Mode A/C Ventilator Mode A/C Ventilator Mode A/C Ventilator Mode A/C Ventilator Mode A/C Ventilator Mode A/C Ventilator Mode A/C Ventilator Mode A/C Ventilator Mode A/C Ventilator Tidal Volume 450 Setting Ventilator Tidal Volume 450 Setting Ventilator Tidal Volume 450 Setting Ventilator Tidal Volume 450 Setting Ventilator Tidal Volume 450 Setting Ventilator Tidal Volume 450 Setting Ventilator Tidal Volume 450 Setting Ventilator Tidal Volume 450 Setting Ventilator Tidal Volume 450 Setting Ventilator Respiratory Rate 22 Setting Ventilator Respiratory Rate 22 Setting Ventilator Respiratory Rate 22 Setting Ventilator Respiratory Rate 22 Setting Ventilator Respiratory Rate 22 Setting Ventilator Respiratory Rate 22 Setting Ventilator Respiratory Rate 22 Setting Ventilator Respiratory Rate 22 Setting Ventilator Respiratory Rate 22 Setting Actual Respiratory Rate 22 Actual Respiratory Rate 22 Actual Respiratory Rate 22 Actual Respiratory Rate 22 Actual Respiratory Rate 22 Actual Respiratory Rate 22 Actual Respiratory Rate 22 Actual Respiratory Rate 22 Actual Respiratory Rate 22 Positive End Expiratory 12 Pressure Positive End Expiratory 12 Pressure Positive End Expiratory 12 Pressure Positive End Expiratory 12 Pressure Positive End Expiratory 12 Pressure Positive End Expiratory 12 Pressure Positive End Expiratory 12 Pressure Positive End Expiratory 12 Pressure Positive End Expiratory 12 Pressure Peak Inspiratory Airway 36 Pressure Peak Inspiratory Airway 38 Pressure Peak Inspiratory Airway 38 Pressure Peak Inspiratory Airway 33 Pressure Peak Inspiratory Airway 33 Pressure Peak Inspiratory Airway 32 Pressure Peak Inspiratory Airway 32 Pressure Peak Inspiratory Airway 33 Pressure Peak Inspiratory Airway 32 Pressure Results - Laboratory Findings CBC and BMP: 04/23/17 03:00 04/23/17 03:00 ABG ABG pH 7.40 pH Units (7.32-7.45) 04/23/17 09:58 ABG pCO2 46 mmHg (35-45) H 04/23/17 09:58 ABG pO2 79 mmHg (85-104) L 04/23/17 09:58 ABG O2 Saturation 95 % (95-98) 04/23/17 09:58 PT/INR, D-dimer PT 16.2 Seconds (9.4-12.1) H 04/21/17 14:25 D-Dimer 5447 ng/mLFEU (0-500) H 04/21/17 05:41 Abnormal lab findings: Abnormal lab results WBC 12.9 K/mcL (4.3-11.1) H 04/23/17 03:00 RBC 3.27 M/mcL (4.19-5.50) L 04/23/17 03:00 Hgb 9.0 g/dL (12.9-16.9) L 04/23/17 03:00 Hct 27.5 % (37.5-50.1) L 04/23/17 03:00 MCH 27.5 pg (28.0-33.3) L 04/23/17 03:00 Plt Count 87 K/mcL (140-400) L 04/23/17 03:00 Band Neutrophils % 11.0 % (0-4) H 04/23/17 03:00 Metamyelocytes % 4.0 % (0) H 04/21/17 03:30 Myelocytes % 1.0 % (0) H 04/23/17 03:00 Neutrophils # 11.4 K/mcL (1.6-8.9) H 04/23/17 03:00 Nucleated RBCs/100 WBC 0.2 /100 WBC (0) H 04/23/17 03:00 Reactive Lymphocytes Present (Not Present) A 04/21/17 14:25 Toxic Granulation Present (Not Present) A 04/23/17 03:00 Toxic Vacuolation Present (Not Present) A 04/21/17 14:25 Platelet Estimate Decreased (Normal) L 04/23/17 03:00 Immature Plt Fraction 9.4 % (1.1-6.1) H 04/23/17 03:00 PT 16.2 Seconds (9.4-12.1) H 04/21/17 14:25 Fibrinogen 583 mg/dL (169-393) H 04/21/17 12:50 D-Dimer 5447 ng/mLFEU (0-500) H 04/21/17 05:41 ABG pCO2 46 mmHg (35-45) H 04/23/17 09:58 ABG pO2 79 mmHg (85-104) L 04/23/17 09:58 ABG HCO3 29 mEq/L (21-27) H 04/23/17 09:58 ABG Total CO2 30 mEq/L (20-26) H 04/23/17 09:58 VBG pH 7.53 pH Units (7.32-7.42) H 04/23/17 20:15 VBG pCO2 60 mmHg (41-51) H 04/23/17 06:43 VBG pO2 71 mmHg (25-50) H 04/23/17 06:43 VBG HCO3 28 mEq/L (21-27) H 04/23/17 06:43 BUN 37 mg/dL (8-23) H 04/23/17 03:00 Creatinine 2.96 mg/dL (0.70-1.30) H 04/23/17 03:00 Est GFR ( Amer) 26 (> 60) L 04/23/17 03:00 Est GFR (Non-Af Amer) 22 (> 60) L 04/23/17 03:00 Glucose 123 mg/dL (70-105) H 04/23/17 03:00 POC Glucose 164 (58-89) H 04/23/17 00:12 Calcium 10.4 mg/dL (8.6-10.3) H 04/23/17 03:00 Direct Bilirubin 0.3 mg/dL (0.0-0.2) H 04/23/17 03:00 AST 126 Units/L (13-39) H 04/23/17 03:00 ALT 170 Units/L (7-52) H 04/23/17 03:00 Troponin I 4.23 ng/mL (< 0.04) H* 04/21/17 14:25 Serum Total Protein 4.9 g/dL (6.4-8.9) L 04/23/17 03:00 Albumin 2.5 g/dL (3.5-5.7) L 04/23/17 03:00 Albumin/Globulin Ratio 1.0 (1.1-2.2) L 04/23/17 03:00 HDL Cholesterol 27 mg/dL (40-59) L 04/20/17 03:48 Arterial Blood Ionized Calcium 1.40 mmol/L (1.15-1.35) H 04/23/17 18:51 Vancomycin Trough 39.7 mcg/mL (10-20) H* 04/21/17 12:50 Staphylococcus sp PCR DETECTED (Not Detect) A 04/20/17 03:48 Staph aureus (PCR) DETECTED (Not Detect) A 04/20/17 03:48 - Microbiology Findings Microbiology Findings: Microbiology, Last 48 Hours 04/20/17 10:15 Anaerobic Culture - Preliminary Left Wrist - Abscess At this time, no anaerobic growth is present. The culture will be finalized after 5 days of incubation. 04/20/17 03:48 Blood Culture - Final Peripheral Venipuncture Staphylococcus aureus 04/20/17 03:48 Blood Culture - Final Peripheral Venipuncture Staphylococcus aureus 04/20/17 10:15 Wound Culture - Final Left Wrist - Abscess Staphylococcus aureus - Clinical Findings Intake & Output: Intake & Output 04/23/17 04/23/17 04/23/17 07:59 15:59 23:59 Intake Total 1792.9 / 1792.9 2514.8 / 2514.8 1176.4 / 1176.4 Output Total 1996 2188 / 2188 1746 / 1746 Balance -204.1 / -204.1 326.8 / 326.8 -569.6 / -569.6 Weight 105.4 kg - Attending Attestation I saw and evaluated this patient and my medical decision-making was reviewed with the Resident Physician. I agree with the documented findings, disposition and treatment plan as described except to the extent set forth below. We independently had [id number] contact with the patient I spent 35 minutes of Critical Care time with this patient. It involved decision making of high complexity to assess, manipulate, and support vital organ system failure and/or to prevent further life threatening deterioration of the patient's condition. The time involved in the performance of separately reportable procedures was not counted toward critical care time. Patient seen and examined at bedside Labs, radiology, chart personally reviewed. Management was reviewed during multidisciplinary critical care rounds. CADDY:Patient is intubated not following commands on my exam secondary to toxic / metabolic encephalopathy Pulm: Patient hypoxic respiratory failure requiring high PEEP therapy which helps to convert the shunt fraction into V/Q mismatch brought down the FIO2 to 60% to keep the PEEP at 12 once the FIO2 is brought down to 40% will bring down the PEEP patient is currently paralyzed because of ventilator dyschrony when oxygenation stable of PEEP will stop the muscle relaxant The V/Q mismatch is due to fluid overload with multifocal pneumonia vs Septic embolic Cards:. Patient has some systolic heart failure , CAD with antiplatelet therapy patient doesnt have contraindications for anti-platelet therapy for now TTE didnt show any vegetations if next blood cultures positive will need LYDIA , blood culture which was sent 04/22 is in process . Patient is septic shock titrating down on the vasopressors FEN-GI:Feeding as per nutrition recs Renal: NANCY needing CCVHD ID: To continue the broad spectrum antibiotics Heme/Onc:Labs reviewed with some thrombocytopenia will keep on citrate if drops according to nephrology will stop citrate at this point . Endo: Glucose Monitored Integ/MSK: Skin Care per routine ICU Nursing Protocol to prevent ulcers. Lines: All lines examined without evidence of infection : Dispo: Critically ill with maximal support patient has high risk of dying over next 48 hrs CODE:Full Code
[2017-04-23 10:02] LABS: ABG Base Excess 3 mEq/L (-2 to 3); ABG HCO3 29 mEq/L (21-27); ABG Oxygen Saturation 95 % (95-98); ABG PCO2 46 mmHg (35-45); ABG PO2 79 mmHg (85-104); ABG TCO2 30 mEq/L (20-26); Blood Gas Modality ASSIST CONTROL; Blood Gas PEEP 12 cm H2O; Blood Gas Respiration Rate 22; Blood Gas VT 450 cc
[2017-04-23] MEDS: Nafcillin 2,000 MG in 0.9 % Sodium Chloride Mini Bag 100 ML IVPB SCH ×3 (12:33→23:16)
[2017-04-23] MEDS: EPINEPHrine 1 MG in 0.9 % Sodium Chloride 250 ML IVC SCH (12:33)
[2017-04-23 12:37] LABS: VBG Ionized Calcium 1.42 mmol/L (1.15-1.35)
--- NOTE | 2017-04-23 12:45 | Cardiology Progress Note ---
Date of Encounter: 04/23/17 Time of Encounter: 11:30 Assessment and Plan (1) Coronary artery disease Current Visit: Yes Status: Chronic Patient underwent PCI to the [place] OM due to occluded SVG to OM 04/16/2017. He presented to the hospital 04/20 for SOB and abdominal discomfort. He was discovered to have a rectus sheath hematoma and possible acute abdomen. General surgery notes were reviewed - no surgery indicated at this time. Peak troponin to 4.88 during this admission. LHC was not recommended - considered too high risk given complex acute events including sepsis, ARF, hematoma and acute respiratory failure. LVEF borderline 45-50% and global. Continue to recommend conservative care. Continue Brilinta and ASA unless absolute contraindication arises. Qualifiers: Coronary Disease-Associated Artery/Lesion type: [place] artery [place] vs. transplanted heart: [place] heart Associated angina: with other forms of angina Qualified Code(s): I25.118 - Atherosclerotic heart disease of [place] coronary artery with other forms of angina pectoris (2) Acute respiratory failure with hypoxia Current Visit: Yes Status: Acute Patient remains intubated - multilobular pneumonia on imaging with worsening respiratory status. Defer to critical care team for management. (3) Hematoma Current Visit: Yes Status: Acute Rectus sheath hematoma noted on presentation with possible compartment syndrome and acute abdomen. General surgery is following. No indication for surgery at this time. They will continue to follow. Discussion w patient/family: The assessment as outlined above was discussed with the family members at the bedside. All questions were answered. Cardiology service has no further recommendations outside of the above documentation. We will sign off at this time. We would appreciate a call if any questions arise or at family request. Subjective Principal diagnosis: Sepsis/Septic Shock Interval history: Reviewed hospitalized course and overnight events. Patient with worsening respiratory status on pressor agents. Objective Vital Signs, Last 4 Hours Pulse Resp BP Pulse Ox 04/23/17 11:46 22 111/60 98 04/23/17 11:00 67 22 111/60 98 04/23/17 10:00 60 22 122/71 97 04/23/17 09:00 56 22 105/55 99 General: Other (Intubated, sedated) HEENT: Other (ETT in place) Cardiac: Reg Rate and Rhythm, Normal S1 and S2, No Murmur Lungs: Other (diminished breath sounds bilaterally) Neuro: Other (Intubated, sedated) Extremities: Other (no significant LE edema) Results 04/23/17 03:00 04/23/17 03:00 Lab Results 04/23/17 04/23/17 04/23/17 03:00 03:00 03:00 WBC Hgb Hct Plt Count APTT 28.9 Sodium 137 Potassium 4.1 Chloride 105 Carbon Dioxide 28 BUN 37 H Creatinine 2.96 H Glucose 123 H Calcium 10.4 H Magnesium 2.2 Total Bilirubin 0.8 AST 126 H ALT 170 H Alkaline Phosphatase 53 04/23/17 03:00 WBC 12.9 H Hgb 9.0 L Hct 27.5 L Plt Count 87 L APTT Sodium Potassium Chloride Carbon Dioxide BUN Creatinine Glucose Calcium Magnesium Total Bilirubin AST ALT Alkaline Phosphatase - Imaging and Cardiology Chest Xray: report reviewed (04/23/2017) Echo: report reviewed (04/21/2017) - EKG Interpretation EKG results cardiology: personally reviewed (ECG done at the bedside demonstrates probable sinus rhythm with low amplitude p waves, no acute findings ) - VTE Documentation of Mechanical Device: Intermittent pneumatic compression device Consult Discharge Plan - Plan Referrals: Kannan Hurley DO [Primary Care Provider] - Juan Lake [Family Provider] -
[2017-04-23] MEDS ORDERED: *HR* Heparin 5,000 UNIT/ML VIAL ONE (14:22)
[2017-04-23 14:26] LABS: VBG Ionized Calcium 1.42 mmol/L (1.15-1.35)
[2017-04-23 16:22] LABS: VBG Ionized Calcium 1.43 mmol/L (1.15-1.35)
[2017-04-23] MEDS: Insulin Human Regular 100 UNIT in 0.9 % Sodium Chloride 100 ML IVC SCH (18:07)
[2017-04-23 20:18] LABS: VBG Ionized Calcium 1.24 mmol/L (1.15-1.35); VBG PH 7.53 pH Units (7.32-7.42)
[2017-04-24] MEDS ORDERED: Meropenem 1,000 MG in Water for inj. (sterile) 20 ML 10 ML IVP SCH
[2017-04-24] MEDS: Norepinephrine 16 MG in D5% in Water 500 ML IVC SCH (01:20)
[2017-04-24] MEDS: PrismaSATE BGK 4/2.5 5,000 ML CRRT SCH ×10 (01:40→23:23)
[2017-04-24 02:21] LABS: ABG Ionized Calcium 1.32 mmol/L (1.15-1.35)
[2017-04-24] MEDS: FentaNYL (PF) 1,000 MCG in 0.9 % Sodium Chloride 80 ML IVC SCH ×4 (03:30→18:42)
[2017-04-24] MEDS: Lacri-Lube 3.5 GM TUBE BOTH EYES SCH ×6 (03:52→23:35)
[2017-04-24 04:04] LABS: ABG Base Excess 4 mEq/L (-2 to 3); ABG HCO3 29 mEq/L (21-27); ABG Oxygen Saturation 93 % (95-98); ABG PCO2 49 mmHg (35-45); ABG PH 7.39 pH Units (7.32-7.45); ABG PO2 69 mmHg (85-104); ABG TCO2 31 mEq/L (20-26); Blood Gas Modality ASSIST CONTROL; Blood Gas PEEP 12 cm H2O; Blood Gas Respiration Rate 22; Blood Gas VT 450 cc
[2017-04-24 04:36] LABS: Albumin 2.8 g/dL (3.5-5.7); Phosphorous 2.3 mg/dL (2.7-4.5); Potassium 4.2 mEq/L (3.5-5.1)
[2017-04-24 04:38] LABS: Albumin 2.7 g/dL (3.5-5.7); Albumin/Globulin Ratio 1.1 (1.1-2.2); Basophils # 0.1 K/mcL (0.0-0.2); Basophils % 0.4 %; Bilirubin,Direct 0.5 mg/dL (0.0-0.2); Bilirubin,Indirect 0.5 mg/dL (0.0-1.2); Eosinophils % 0.1 %; Globulin 2.4 g/dL (2.4-3.5); Hematocrit 28.4 % (37.5-50.1); Hemoglobin 9.2 g/dL (12.9-16.9); Lymphocytes # 0.7 K/mcL (0.6-4.6); Lymphocytes % 4.1 %; Magnesium 2.1 mg/dL (1.6-2.6); Mean Corpuscular HGB Conc 32.4 g/dL (31.6-35.5); Mean Corpuscular Hemoglobin 27.5 pg (28.0-33.3); Mean Platelet Volume 10.9 fL (9.4-12.4); Monocytes # 1.3 K/mcL (0.0-1.3); Monocytes % 8.1 %; Neutrophils # 13.4 K/mcL (1.6-8.9); Platelet Count 119 K/mcL (140-400); Red Blood Count 3.34 M/mcL (4.19-5.50); Red Cell Distribution Width 13.9 % (11.5-14.5); Segmented Neutrophils % 82.3 %; Total Protein 5.1 g/dL (6.4-8.9)
[2017-04-24] MEDS: Nafcillin 2,000 MG in 0.9 % Sodium Chloride Mini Bag 100 ML IVPB SCH ×5 (05:37→23:34)
[2017-04-24] MEDS: Pantoprazole 40 MG VIAL IVP SCH ×2 (05:38→17:17)
[2017-04-24] MEDS: Calcium Chloride 4,000 MG in 0.9 % Sodium Chloride 1,000 ML CRRT SCH ×2 (05:42→15:51)
[2017-04-24] MEDS: amLODIPine 5 MG TABLET PO SCH (07:20)
[2017-04-24] MEDS: *HR* Ticagrelor 90 MG TABLET PO SCH ×2 (08:10→20:46)
[2017-04-24] MEDS: Chlorhexidine Rinse 15 ML MOUTHWASH MM SCH ×2 (08:10→20:46)
[2017-04-24] MEDS: Aspirin 81 MG TAB.CHEW PO SCH (08:10)
--- NOTE | 2017-04-24 08:39 | Electrocardiograph Report ---
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
--- NOTE | 2017-04-24 08:52 | Nephrology Progress Note ---
Date of Encounter: 04/24/17 Time of Encounter: 08:05 - Assessment and Plan (1) NANCY (acute kidney injury) Current Visit: Yes Status: Acute Continue Nahomy (CVVHDF) for severe oliguric NANCY from septic shock, recent contrast and initally may have had high abd pressures affecting renal function, the latter had trended better most likely from the clearance provided by the SOUND ASSISTANT but since his UOP is minimal, the improved SCr is not likely from renal recovery at this point. Filter life remains good. Continue 4K/2.5Ca at 1000 dialysate and 1000 replacement fluid with Citrate/ Calcium for regional anticoagulation to help support the filter. UF to Net+25-100mL/hr with a maximum ceiling of Net+100mL/hr for the next 24hr. If hemodynamics worsen, then would need to dec UF rates. Renal dosing while on Nahomy: assume an effect GFR of near 30. Dose Vanco, if continued, by trough levels as discussed with the ICU team, and narrow the Antibiotic spectrum when able. Continue to follow a renal protective strategy and strict I/Os and daily weights. Discussed with the ICU team. Will closely follow with you. (2) Hyponatremia Current Visit: Yes Status: Acute Improved. (3) Abdominal compartment syndrome Current Visit: Yes Status: Acute Appears resolved. Qualifiers: Compartment syndrome type: non-traumatic Qualified Code(s): M79.A3 - Nontraumatic compartment syndrome of abdomen (4) Septic shock Current Visit: Yes Status: Acute ICU following. Remains on pressors, so I'll be gentle with UF. Subjective Principal diagnosis: Sepsis/Septic Shock Interval history: Pt was s/e. The GATE WATCH was present at the bedside: no acute event overnight and the dialysis catheter has not had access pressures issues, she reported. His UOP remains minimal. He remains intubated and sedated. Objective - Vital Signs Vital signs: Vital Signs Temp Pulse Resp BP Pulse Ox 04/24/17 08:00 80 22 115/47 92 04/24/17 07:48 22 91 04/24/17 07:34 82 04/24/17 07:00 83 22 119/48 91 04/24/17 06:00 82 22 112/43 90 04/24/17 05:30 22 129/53 95 04/24/17 05:00 82 22 124/51 95 04/24/17 04:00 99 F 85 22 131/53 93 18 03:31 22 130/52 94 18 03:00 83 22 120/53 93 18 02:00 80 22 102/50 94 18 01:17 22 131/56 92 18 01:00 76 22 109/44 92 04/24/17 00:00 98.2 F 80 22 125/52 92 0518 23:27 22 99/43 94 0518 23:00 79 22 119/52 94 0518 22:00 81 22 131/55 93 18 21:16 22 124/55 91 04/23/17 21:00 80 22 120/52 91 18 20:00 98.2 F 80 22 118/53 93 0518 19:31 22 114/52 92 18 19:00 77 22 114/52 92 18 18:45 22 90/42 94 18 18:00 74 22 90/42 93 0518 17:01 22 113/51 92 18 17:00 73 22 110/49 92 18 16:00 98.1 F 74 22 113/51 92 18 15:41 73 22 123/54 91 18 15:00 75 22 122/55 93 18 14:00 97.3 F L 71 22 130/58 93 04/23/17 13:00 68 22 82/45 96 04/23/17 12:00 96.2 F L 68 22 108/62 97 04/23/17 11:46 22 111/60 98 18 11:00 67 22 111/60 98 0518 10:00 60 22 122/71 97 04/23/17 09:00 56 22 105/55 99 Intake and Output 04/23/17 04/24/17 04/24/17 23:59 07:59 15:59 Intake Total 1295.4 / 1295.4 1757.8 / 1757.8 384 / 384 Output Total 2050 2199 / 2199 303 / 303 Balance -755.6 / -755.6 -441.2 / -441.2 81 / 81 Intake: IV Fluids 1215.4 / 1215.4 1724.8 / 1724.8 373 / 373 Calcium Chloride 4,000 MG In 0. 470 / 470 935 / 935 250 / 250 9 % Sodium Chloride 1,000 ML @ 40 mls/hr CRRT [facility] Rx#: [id number] PrismaSATE BGK 4/2.5 5,000 ML @ 0 / 0 0 / 0 1500 mls/hr CRRT [facility] Rx#: [id number] DOPamine Premix 400mg/250mL 400 235 / 235 mg In 250 ml @ 2.5 MCG/KG/MIN 9.281 mls/hr IVC .Q24H [facility] Rx#: [id number] FentaNYL (PF) 1,000 MCG In 0.9 200 / 200 100 / 100 100 / 100 % Sodium Chloride 80 ML @ 50 MCG/HR 5 mls/hr IVC [facility] Rx #:[id number] HumuLIN R 100 UNIT In 0.9 % 35.4 / 35.4 40.8 / 40.8 9 / 9 Sodium Chloride 100 ML @ 12 UNIT/HR 12.12 mls/hr IVC [facility] Rx#:[id number] Versed 50 MG In 0.9 % Sodium 100 / 100 100 / 100 Chloride 90 ML @ 2 MG/HR 4 mls/ hr IVC [facility] Rx#:[id number] Levophed 16 MG In Dextrose 5% 50 / 50 99 / 99 500 ML @ 25 MCG/MIN 48.37 mls/ hr IVC [facility] Rx#:[id number] Norcuron 50 MG In 0.9 % Sodium 150 / 150 115 / 115 14 / 14 Chloride 150 ML @ 0.8 MCG/KG/ MIN 14.25 mls/hr IVC [facility] Rx#:[id number] Merrem 1,000 MG In Water for inj. (sterile) 10 ML @ 200 mls/ hr IVP Q12H [facility] Rx#:[id number] Nafcillin 2,000 MG In 0.9 % 200 / 200 100 / 100 Sodium Chloride (Mini-Bag +) 100 ML @ 200 mls/hr IVPB Q6HR [facility] Rx#:[id number] Tube Feeding 80 / 80 33 / 33 11 / Output: Nahomy 2026 / 2026 2189 / 2189 303 / 303 Catheter 0 / 0 Other: # Urine Diapers 0 Weight 104.3 kg Blood Glucose* 150 158 120 Patient Weight 04/24/17 23:59 Weight 104.3 kg - General Appearance General appearance: Present: sedated on ventilator, intubated EENT: Present: ATNC, PERRL, mucous membranes moist Neck: Present: supple Respiratory: Present: clear Cardiology: Present: edema (less than 1+ hand edema b/l and trace to 1+ pedal edema b/l), regular rate, regular rhythm, normal S1, normal S2 Dialysis Vascular Access: Venous Catheter (Right femoral HD catheter was C/D/I and without exudates.) Gastrointestinal: Present: normoactive bowel sounds, no tenderness, no guarding Integumentary: Present: no rash, warm and dry Neurologic: Present: no asterixis Additional Comments: Intubated and sedated Musculoskeletal: Present: no cyanosis, no clubbing - Lab 04/24/17 03:55 04/24/17 03:55 Most recent lab results ABG pH 7.39 pH Units (7.32-7.45) 04/24/17 04:01 ABG pCO2 49 mmHg (35-45) H 04/24/17 04:01 ABG pO2 69 mmHg (85-104) L 04/24/17 04:01 ABG HCO3 29 mEq/L (21-27) H 04/24/17 04:01 ABG O2 Saturation 93 % (95-98) L 04/24/17 04:01 Calcium 10.0 mg/dL (8.6-10.3) 04/24/17 03:55 Phosphorus 2.3 mg/dL (2.7-4.5) L 04/24/17 03:55 Magnesium 2.1 mg/dL (1.6-2.6) 04/24/17 03:55 - VTE Documentation of Mechanical Device: Intermittent pneumatic compression device Consult Discharge Plan - Plan Referrals: Kannan Hurley DO [Primary Care Provider] - Juan Lake [Family Provider] -
[2017-04-24] MEDS: Vecuronium 50 MG in 0.9 % Sodium Chloride 150 ML IVC SCH (08:53)
--- NOTE | 2017-04-24 09:00 | Electrocardiograph Report ---
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
--- NOTE | 2017-04-24 09:17 | Pulmonology Progress Note ---
<Ciaran Cristobal - Last Filed: 04/24/17 10:58> Date of Encounter: 04/24/17 Time of Encounter: 07:30 Assessment and Plan (1) Septic shock Current Visit: Yes Status: Acute Secondary to Staph aureus bacteremia. Lactic acid improving Requiring hemodynamic support with norepinephrine and dopamine, titrated to MAP >65. Patient has increasing leukocytosis. Will culture sputum, continue abx. Empiric antibiotics Meropenem day 3 - Discontinue today Begin Zosyn Nafcillin day 2 Microbiology: Sputum culture pending Blood culture peripheral 04/22 (-) @24hr Blood culture peripheral 04/20 (+) MSSA Wound culture Lt wrist 04/20 (+) MSSA Anaerobic culture Lt wrist 04/20 (-) prelim. 5d incubation pending. (2) Acute respiratory failure with hypoxia Current Visit: Yes Status: Acute Secondary to hypoxia in the setting of septic shock. Lung protective measures. Will follow with ABG and titrate vent settings accordingly. Antibiotics as above. (3) Cardiac arrest Current Visit: Yes Status: Resolved Cardiac arrest 04/21. PEA (6 rounds CPR, 4 rounds epi, 2A bicarb) to Sinus tachycardia to SVT (cardiovert x1 at 100J) to NSR. Cardiology consulted; suspect metabolic cause. Patient too unstable for LHC. (4) Coronary artery disease Current Visit: Yes Status: Chronic LHC 04/16/17 with RAMÍREZ to prox circ. LVEF 55% with normal contractility. Hx CABC x4 in 2012. Hx DM, HTN, HLD, CAD Continue lipitor, aspirin, norvasc. Qualifiers: Coronary Disease-Associated Artery/Lesion type: [place] artery [place] vs. transplanted heart: [place] heart Associated angina: with other forms of angina Qualified Code(s): I25.118 - Atherosclerotic heart disease of [place] coronary artery with other forms of angina pectoris (5) Hematoma Current Visit: Yes Status: Acute Right rectus sheath hematoma per CTA abdomen pelvis 04/20 Negative workup for femoral artery pseudoaneursym. (arterial imaging) Per general surgery; hematoma without active bleed, no indication for surgical intervention at this time. Gen surg sign-off 04/24. (6) Stage 3 acute kidney injury Current Visit: Yes Status: Acute Acute Kidney injury likely secondary to septic shock On MARTIN Renal function improving. Nephrology following. Subjective Principal diagnosis: Sepsis/Septic Shock Interval history: Hospital day 4/ Post cardiac arrest day 3 No acute events overnight. Patient is stable at this time though still tenuous and critical medically. Neuro: Patient remains sedated on versed. Analgesia with fentanyl. Paralyzed with vecuronium to minimize oxygenation requirements and prevent dys-synchrony with ventilator given his precarious pulmonary and overall medical status. CV: Patient remains dependent upon norepinephrine and dopamine, titrated to minimal dose as tolerated by HR and BP. Pulm: Patient's oxygenation improved with lung protective settings. PEEP remains in the 12 range; lung de-recruitment occurs with reduced PEEP, hypotension occurs with increased PEEP. Will continue to monitor/manage. GI: Tube feeds, unchanged. GI sign-off at this time. Renal: Cumulative positive 1.6L fluids. On MARTIN. Gently diurese with MARTIN; caution given patient's dependence on norepinephrine and dopamine. Cr improving slowly. Heme/ID: MSSA bacteremia and pneumonia. Continue meropenem, nafcillin. Skin: Patient does not currently tolerate turning. Objective PUL Vital signs: Last Vital Signs Temp 99 F 04/24/17 04:00 Pulse 80 04/24/17 08:00 Resp 22 04/24/17 08:00 BP 115/47 04/24/17 08:00 Pulse Ox 92 04/24/17 08:00 General appearance: no acute distress Eyes: nonicteric ENT: oropharynx moist Neck: supple Effort: normal Auscultation: bilateral: clear, diminished breath sounds Cardiovascular: regular rate and rhythm Gastrointestinal: normoactive bowel sounds, soft, non-distended Integumentary: normal (except cellulitis), cellulitis (left forearm/wrist) Extremities: no cyanosis, no edema, no clubbing, pink and warm, pulses normal, no ischemia or petechiae Musculoskeletal: no deformities other (intubated, sedated, paralysed.) Ventilator Settings Ventilator Settings: Ventilator Settings, Last 8 Hours Ventilator Mode A/C Ventilator Mode A/C Ventilator Mode A/C Ventilator Mode A/C Ventilator Mode A/C Ventilator Mode A/C Ventilator Mode A/C Ventilator Mode A/C Ventilator Mode A/C Ventilator Mode A/C Ventilator Mode A/C Ventilator Mode A/C Ventilator Tidal Volume 450 Setting Ventilator Tidal Volume 450 Setting Ventilator Tidal Volume 450 Setting Ventilator Tidal Volume 450 Setting Ventilator Tidal Volume 450 Setting Ventilator Tidal Volume 450 Setting Ventilator Tidal Volume 450 Setting Ventilator Tidal Volume 450 Setting Ventilator Tidal Volume 450 Setting Ventilator Tidal Volume 450 Setting Ventilator Tidal Volume 450 Setting Ventilator Tidal Volume 450 Setting Ventilator Respiratory Rate 22 Setting Ventilator Respiratory Rate 22 Setting Ventilator Respiratory Rate 22 Setting Ventilator Respiratory Rate 22 Setting Ventilator Respiratory Rate 22 Setting Ventilator Respiratory Rate 22 Setting Ventilator Respiratory Rate 22 Setting Ventilator Respiratory Rate 22 Setting Ventilator Respiratory Rate 22 Setting Ventilator Respiratory Rate 22 Setting Ventilator Respiratory Rate 22 Setting Ventilator Respiratory Rate 22 Setting Actual Respiratory Rate 22 Actual Respiratory Rate 22 Actual Respiratory Rate 22 Actual Respiratory Rate 22 Actual Respiratory Rate 22 Actual Respiratory Rate 22 Actual Respiratory Rate 22 Actual Respiratory Rate 22 Actual Respiratory Rate 22 Actual Respiratory Rate 22 Actual Respiratory Rate 22 Positive End Expiratory 12 Pressure Positive End Expiratory 12 Pressure Positive End Expiratory 12 Pressure Positive End Expiratory 12 Pressure Positive End Expiratory 12 Pressure Positive End Expiratory 12 Pressure Positive End Expiratory 12 Pressure Positive End Expiratory 12 Pressure Positive End Expiratory 12 Pressure Positive End Expiratory 12 Pressure Positive End Expiratory 12 Pressure Positive End Expiratory 12 Pressure Peak Inspiratory Airway 32 Pressure Peak Inspiratory Airway 33 Pressure Peak Inspiratory Airway 33 Pressure Peak Inspiratory Airway 32 Pressure Peak Inspiratory Airway 33 Pressure Peak Inspiratory Airway 31 Pressure Peak Inspiratory Airway 33 Pressure Peak Inspiratory Airway 32 Pressure Peak Inspiratory Airway 33 Pressure Peak Inspiratory Airway 33 Pressure Peak Inspiratory Airway 34 Pressure Results - Laboratory Findings CBC and BMP: 04/24/17 03:55 04/24/17 03:55 ABG ABG pH 7.39 pH Units (7.32-7.45) 04/24/17 04:01 ABG pCO2 49 mmHg (35-45) H 04/24/17 04:01 ABG pO2 69 mmHg (85-104) L 04/24/17 04:01 ABG O2 Saturation 93 % (95-98) L 04/24/17 04:01 PT/INR, D-dimer PT 16.2 Seconds (9.4-12.1) H 04/21/17 14:25 D-Dimer 5447 ng/mLFEU (0-500) H 04/21/17 05:41 Abnormal lab findings: Abnormal lab results WBC 16.3 K/mcL (4.3-11.1) H 04/24/17 03:55 RBC 3.34 M/mcL (4.19-5.50) L 04/24/17 03:55 Hgb 9.2 g/dL (12.9-16.9) L 04/24/17 03:55 Hct 28.4 % (37.5-50.1) L 04/24/17 03:55 MCH 27.5 pg (28.0-33.3) L 04/24/17 03:55 Plt Count 119 K/mcL (140-400) L 04/24/17 03:55 Immature Gran % 5.0 % (0-4) H 04/24/17 03:55 Band Neutrophils % 11.0 % (0-4) H 04/23/17 03:00 Metamyelocytes % 4.0 % (0) H 04/21/17 03:30 Myelocytes % 1.0 % (0) H 04/23/17 03:00 Neutrophils # 13.4 K/mcL (1.6-8.9) H 04/24/17 03:55 Nucleated RBCs/100 WBC 0.2 /100 WBC (0) H 04/23/17 03:00 Reactive Lymphocytes Present (Not Present) A 04/21/17 14:25 Toxic Granulation Present (Not Present) A 04/23/17 03:00 Toxic Vacuolation Present (Not Present) A 04/21/17 14:25 Platelet Estimate Decreased (Normal) L 04/23/17 03:00 Immature Plt Fraction 9.4 % (1.1-6.1) H 04/23/17 03:00 PT 16.2 Seconds (9.4-12.1) H 04/21/17 14:25 Fibrinogen 583 mg/dL (169-393) H 04/21/17 12:50 D-Dimer 5447 ng/mLFEU (0-500) H 04/21/17 05:41 ABG pCO2 49 mmHg (35-45) H 04/24/17 04:01 ABG pO2 69 mmHg (85-104) L 04/24/17 04:01 ABG HCO3 29 mEq/L (21-27) H 04/24/17 04:01 ABG Total CO2 31 mEq/L (20-26) H 04/24/17 04:01 ABG O2 Saturation 93 % (95-98) L 04/24/17 04:01 ABG Base Excess 4 mEq/L (-2 to 3) H 04/24/17 04:01 BUN 35 mg/dL (8-23) H 04/24/17 03:55 Creatinine 2.76 mg/dL (0.70-1.30) H 04/24/17 03:55 Est GFR ( Amer) 29 (> 60) L 04/24/17 03:55 Est GFR (Non-Af Amer) 24 (> 60) L 04/24/17 03:55 Glucose 128 mg/dL (70-105) H 04/24/17 03:55 POC Glucose 150 (58-89) H 04/23/17 23:01 Venous Ioniz Calcium 1.00 mmol/L (1.15-1.35) L 04/24/17 08:14 Phosphorus 2.3 mg/dL (2.7-4.5) L 04/24/17 03:55 Direct Bilirubin 0.5 mg/dL (0.0-0.2) H 04/24/17 03:55 AST 77 Units/L (13-39) H 04/24/17 03:55 ALT 131 Units/L (7-52) H 04/24/17 03:55 Troponin I 4.23 ng/mL (< 0.04) H* 04/21/17 14:25 Serum Total Protein 5.1 g/dL (6.4-8.9) L 04/24/17 03:55 Albumin 2.7 g/dL (3.5-5.7) L 04/24/17 03:55 HDL Cholesterol 27 mg/dL (40-59) L 04/20/17 03:48 Vancomycin Trough 39.7 mcg/mL (10-20) H* 04/21/17 12:50 Staphylococcus sp PCR DETECTED (Not Detect) A 04/20/17 03:48 Staph aureus (PCR) DETECTED (Not Detect) A 04/20/17 03:48 - Microbiology Findings Microbiology Findings: Microbiology, Last 48 Hours 04/22/17 12:35 Blood Culture - Preliminary Peripheral Venipuncture No growth. 04/22/17 12:35 Blood Culture - Preliminary Peripheral Venipuncture No growth. 04/20/17 10:15 Anaerobic Culture - Preliminary Left Wrist - Abscess At this time, no anaerobic growth is present. The culture will be finalized after 5 days of incubation. 04/20/17 03:48 Blood Culture - Final Peripheral Venipuncture Staphylococcus aureus 04/20/17 03:48 Blood Culture - Final Peripheral Venipuncture Staphylococcus aureus 03/02/18 10:15 Wound Culture - Final Left Wrist - Abscess Staphylococcus aureus - Clinical Findings Intake & Output: Intake & Output 04/23/17 04/24/17 04/24/17 23:59 07:59 15:59 Intake Total 1295.4 / 1295.4 1757.8 / 1757.8 477.4 / 477.4 Output Total 1 / 2050 2199 / 2199 601 / 601 Balance -755.6 / -755.6 -441.2 / -441.2 -123.6 / -123.6 Weight 104.3 kg - VTE Documentation of Mechanical Device: Intermittent pneumatic compression device Consult Discharge Plan - Plan Referrals: Kannan Hurley DO [Primary Care Provider] - Juan Lake [Family Provider] - <Dmitri Mckeon S - Last Filed: 04/24/17 22:17> Date of Encounter: 04/24/17 Objective PUL Vital signs: Last Vital Signs Temp 98.0 F 04/24/17 20:00 Pulse 79 04/24/17 21:00 Resp 22 04/24/17 21:51 BP 101/53 04/24/17 21:51 Pulse Ox 90 04/24/17 21:51 Ventilator Settings Ventilator Settings: Ventilator Settings, Last 8 Hours Ventilator Mode A/C Ventilator Mode A/C Ventilator Mode A/C Ventilator Mode A/C Ventilator Mode A/C Ventilator Mode A/C Ventilator Mode A/C Ventilator Mode A/C Ventilator Mode A/C Ventilator Mode A/C Ventilator Mode A/C Ventilator Mode A/C Ventilator Tidal Volume 450 Setting Ventilator Tidal Volume 450 Setting Ventilator Tidal Volume 450 Setting Ventilator Tidal Volume 450 Setting Ventilator Tidal Volume 450 Setting Ventilator Tidal Volume 450 Setting Ventilator Tidal Volume 450 Setting Ventilator Tidal Volume 450 Setting Ventilator Tidal Volume 450 Setting Ventilator Tidal Volume 450 Setting Ventilator Tidal Volume 450 Setting Ventilator Tidal Volume 450 Setting Ventilator Respiratory Rate 22 Setting Ventilator Respiratory Rate 22 Setting Ventilator Respiratory Rate 22 Setting Ventilator Respiratory Rate 22 Setting Ventilator Respiratory Rate 22 Setting Ventilator Respiratory Rate 22 Setting Ventilator Respiratory Rate 22 Setting Ventilator Respiratory Rate 22 Setting Ventilator Respiratory Rate 22 Setting Ventilator Respiratory Rate 22 Setting Ventilator Respiratory Rate 22 Setting Ventilator Respiratory Rate 22 Setting Actual Respiratory Rate 22 Actual Respiratory Rate 22 Actual Respiratory Rate 22 Actual Respiratory Rate 22 Actual Respiratory Rate 22 Actual Respiratory Rate 22 Actual Respiratory Rate 22 Actual Respiratory Rate 22 Actual Respiratory Rate 22 Actual Respiratory Rate 22 Actual Respiratory Rate 22 Actual Respiratory Rate 22 Positive End Expiratory 12 Pressure Positive End Expiratory 12 Pressure Positive End Expiratory 12 Pressure Positive End Expiratory 12 Pressure Positive End Expiratory 12 Pressure Positive End Expiratory 12 Pressure Positive End Expiratory 12 Pressure Positive End Expiratory 12 Pressure Positive End Expiratory 12 Pressure Positive End Expiratory 12 Pressure Positive End Expiratory 12 Pressure Positive End Expiratory 12 Pressure Peak Inspiratory Airway 31 Pressure Peak Inspiratory Airway 32 Pressure Peak Inspiratory Airway 32 Pressure Peak Inspiratory Airway 32 Pressure Peak Inspiratory Airway 32 Pressure Peak Inspiratory Airway 33 Pressure Peak Inspiratory Airway 33 Pressure Peak Inspiratory Airway 32 Pressure Peak Inspiratory Airway 33 Pressure Peak Inspiratory Airway 35 Pressure Peak Inspiratory Airway 34 Pressure Peak Inspiratory Airway 34 Pressure Results - Laboratory Findings CBC and BMP: 04/24/17 03:55 04/24/17 13:34 ABG ABG pH 7.39 pH Units (7.32-7.45) 04/24/17 04:01 ABG pCO2 49 mmHg (35-45) H 04/24/17 04:01 ABG pO2 69 mmHg (85-104) L 04/24/17 04:01 ABG O2 Saturation 93 % (95-98) L 04/24/17 04:01 PT/INR, D-dimer PT 16.2 Seconds (9.4-12.1) H 04/21/17 14:25 D-Dimer 5447 ng/mLFEU (0-500) H 04/21/17 05:41 Abnormal lab findings: Abnormal lab results WBC 16.3 K/mcL (4.3-11.1) H 04/24/17 03:55 RBC 3.34 M/mcL (4.19-5.50) L 04/24/17 03:55 Hgb 9.2 g/dL (12.9-16.9) L 04/24/17 03:55 Hct 28.4 % (37.5-50.1) L 04/24/17 03:55 MCH 27.5 pg (28.0-33.3) L 04/24/17 03:55 Plt Count 119 K/mcL (140-400) L 04/24/17 03:55 Immature Gran % 5.0 % (0-4) H 04/24/17 03:55 Band Neutrophils % 11.0 % (0-4) H 04/23/17 03:00 Metamyelocytes % 4.0 % (0) H 04/21/17 03:30 Myelocytes % 1.0 % (0) H 04/23/17 03:00 Neutrophils # 13.4 K/mcL (1.6-8.9) H 04/24/17 03:55 Nucleated RBCs/100 WBC 0.2 /100 WBC (0) H 04/23/17 03:00 Reactive Lymphocytes Present (Not Present) A 04/21/17 14:25 Toxic Granulation Present (Not Present) A 04/23/17 03:00 Toxic Vacuolation Present (Not Present) A 04/21/17 14:25 Platelet Estimate Decreased (Normal) L 04/23/17 03:00 Immature Plt Fraction 9.4 % (1.1-6.1) H 04/23/17 03:00 PT 16.2 Seconds (9.4-12.1) H 04/21/17 14:25 Fibrinogen 583 mg/dL (169-393) H 04/21/17 12:50 D-Dimer 5447 ng/mLFEU (0-500) H 04/21/17 05:41 ABG pCO2 49 mmHg (35-45) H 04/24/17 04:01 ABG pO2 69 mmHg (85-104) L 04/24/17 04:01 ABG HCO3 29 mEq/L (21-27) H 04/24/17 04:01 ABG Total CO2 31 mEq/L (20-26) H 04/24/17 04:01 ABG O2 Saturation 93 % (95-98) L 04/24/17 04:01 ABG Base Excess 4 mEq/L (-2 to 3) H 04/24/17 04:01 VBG pH 7.25 pH Units (7.32-7.42) L 04/24/17 18:34 BUN 35 mg/dL (8-23) H 04/24/17 13:34 Creatinine 2.71 mg/dL (0.70-1.30) H 04/24/17 13:34 Est GFR ( Amer) 29 (> 60) L 04/24/17 13:34 Est GFR (Non-Af Amer) 24 (> 60) L 04/24/17 13:34 Glucose 171 mg/dL (70-105) H 04/24/17 13:34 POC Glucose 150 (58-89) H 04/23/17 23:01 Venous Ioniz Calcium 0.99 mmol/L (1.15-1.35) L 04/24/17 18:34 Direct Bilirubin 0.5 mg/dL (0.0-0.2) H 04/24/17 03:55 AST 77 Units/L (13-39) H 04/24/17 03:55 ALT 131 Units/L (7-52) H 04/24/17 03:55 Troponin I 4.23 ng/mL (< 0.04) H* 04/21/17 14:25 Serum Total Protein 5.1 g/dL (6.4-8.9) L 04/24/17 03:55 Albumin 2.6 g/dL (3.5-5.7) L 04/24/17 13:34 HDL Cholesterol 27 mg/dL (40-59) L 04/20/17 03:48 Arterial Blood Ionized Calcium 1.38 mmol/L (1.15-1.35) H 04/24/17 20:49 Vancomycin Trough 39.7 mcg/mL (10-20) H* 04/21/17 12:50 Staphylococcus sp PCR DETECTED (Not Detect) A 04/20/17 03:48 Staph aureus (PCR) DETECTED (Not Detect) A 04/20/17 03:48 - Microbiology Findings Microbiology Findings: Microbiology, Last 48 Hours 04/24/17 11:15 Sputum Culture - Preliminary Sputum 04/22/17 12:35 Blood Culture - Preliminary Peripheral Venipuncture No growth. 04/22/17 12:35 Blood Culture - Preliminary Peripheral Venipuncture No growth. 04/20/17 10:15 Anaerobic Culture - Preliminary Left Wrist - Abscess At this time, no anaerobic growth is present. The culture will be finalized after 5 days of incubation. - Clinical Findings Intake & Output: Intake & Output 04/24/17 04/24/17 04/24/17 07:59 15:59 23:59 Intake Total 1757.8 / 1757.8 1933.70 / 1933.70 1834.28 / 1834.28 Output Total 2199 / 2199 2636 / 2636 2030 / 2030 Balance -441.2 / -441.2 -702.30 / -702.30 -196.72 / -196.72 Weight 104.3 kg - Attending Attestation - Attending Attestation I saw and evaluated this patient and my medical decision-making was reviewed with the Resident Physician. I agree with the documented findings, disposition and treatment plan as described except to the extent set forth below. We independently had [id number] contact with the patient I spent 32 minutes of Critical Care time with this patient. It involved decision making of high complexity to assess, manipulate, and support vital organ system failure and/or to prevent further life threatening deterioration of the patient's condition. The time involved in the performance of separately reportable procedures was not counted toward critical care time. Patient seen and examined at bedside Labs, radiology, chart personally reviewed. Management was reviewed during multidisciplinary critical care rounds. DIVERSITY MANAGER:Patient is intubated not following commands on my exam secondary to toxic / metabolic encephalopathy plus he is fully paralyzed Pulm: Patient hypoxic respiratory failure requiring high PEEP therapy which helps to convert the shunt fraction into V/Q mismatch brought down the FIO2 to 60% to keep the PEEP at 12 once the FIO2 is brought down to 40% will bring down the PEEP patient is currently paralyzed because of ventilator dyschrony when oxygenation stable of PEEP will stop the muscle relaxant The V/Q mismatch is due to fluid overload with multifocal pneumonia vs Septic embolic Try to come down the FIO2 of 40% with PEEP of 12 if he is tolerating the ventilator settings then will stop paralysis and see how he does . Cards:. Patient has some systolic heart failure , CAD with antiplatelet therapy patient doesnt have contraindications for anti-platelet therapy for now TTE didnt show any vegetations if next blood cultures positive will need LYDIA , blood culture which was sent 04/22 is in process . Patient is septic shock titrating down on the vasopressors . 04/24 titrating down the vasopressors FEN-GI:Feeding as per nutrition recs Renal: NANCY needing CCVHD ID: To continue the broad spectrum antibiotics Heme/Onc:Labs reviewed with some thrombocytopenia will monitor Endo: Glucose Monitored Integ/MSK: Skin Care per routine ICU Nursing Protocol to prevent ulcers. Lines: All lines examined without evidence of infection : Dispo: Critically ill with maximal support patient has high risk of dying CODE:Full Code
--- NOTE | 2017-04-24 09:50 | Event Note ---
<Freda Witt - Last Filed: 04/24/17 09:47> Date of Encounter: 04/24/17 Time of Encounter: 09:00 Patient continues to be critically ill on ventilator support, vasopressor support and MARTIN. Critical care management per the critical care team. There continues to be no indication for general surgical intervention. Hematoma noted on CTA of abdomen secondary to bleed after heart cath on 04/16/17. No evidence of ongoing bleeding. Surgery will sign off at this time. Thank you for allowing us to participate in the care of this patient. Please call with any further questions/concerns. General surgery will be happy to assist if there is an indication for a tracheostomy in the upcoming days. <Colin Hernandez - Last Filed: 04/24/17 11:47> Date of Encounter: 04/24/17 I have personally seen and examined the patient. I have reviewed pertinent labs , imaging, progress notes, including this one. I agree with the above assessment and plan.
[2017-04-24 10:11] LABS: VBG Ionized Calcium 0.98 mmol/L (1.15-1.35); VBG PH 7.26 pH Units (7.32-7.42)
[2017-04-24] MEDS ORDERED: Potassium Phosphate 44 MEQ in 0.9 % Sodium Chloride 250 ML IVPB PRN (10:55)
[2017-04-24] MEDS: Piperacillin/Tazobactam 3.375 GM in 0.9 % Sodium Chloride Mini Bag 100 ML IVPB SCH ×2 (11:29→19:58)
[2017-04-24] MEDS ORDERED: Nafcillin 2,000 MG in 0.9 % Sodium Chloride Mini Bag 100 ML IVPB SCH (12:00)
[2017-04-24 12:23] LABS: VBG Ionized Calcium 1.12 mmol/L (1.15-1.35)
[2017-04-24 14:05] LABS: Albumin 2.6 g/dL (3.5-5.7); Calcium 9.8 mg/dL (8.6-10.3); Phosphorous 2.8 mg/dL (2.7-4.5); Potassium 4.2 mEq/L (3.5-5.1)
[2017-04-24] MEDS: Insulin Human Regular 100 UNIT in 0.9 % Sodium Chloride 100 ML IVC SCH (15:00)
[2017-04-24] MEDS: Dexmedetomidine HCl 400 MCG/100 ML MLS IVC SCH (15:51)
[2017-04-24] MEDS: EPINEPHrine 1 MG in 0.9 % Sodium Chloride 250 ML IVC SCH (15:51)
[2017-04-24] MEDS: VECURONIUM IVC SCH (17:17)
[2017-04-24] MEDS: SODIUM CHLORIDE IVC SCH (17:17)
[2017-04-24 18:37] LABS: VBG Ionized Calcium 0.99 mmol/L (1.15-1.35); VBG PH 7.25 pH Units (7.32-7.42)
[2017-04-24] MEDS ORDERED: Perflutren Lipid Microsphere 1.3 ML in 0.9 % Sodium Chloride 8.7 ML IVP ONE (18:43)
--- NOTE | 2017-04-24 20:01 | Electrocardiograph Report ---
[address] [place], [place] [address] Test Date: 2017-04-21 Pat Name: Umberto Jarvis Department: 109 Room: [facility] Gender: M Brand Leader: : 1955 Requested By: Ciaran Cristobal Order Number: [id number] Reading MD: Freda Pham Measurements Intervals [place] Rate: 116 P: 40 MA: 182 QRS: 15 QRSD: 151 T: 0 QT: 297 QTc: 366 Interpretive Statements SINUS TACHYCARDIA WITH FREQUENT SUPRAVENTRICULAR PREMATURE COMPLEXES RIGHT BUNDLE BRANCH BLOCK MARKED ST DEPRESSION, CONSIDER SUBENDOCARDIAL INJURY Electronically Signed On 04-24-2017 20:00:03 EST by Freda Pham
--- NOTE | 2017-04-24 20:01 | Electrocardiograph Report ---
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
[2017-04-24] MEDS ORDERED: 0.9 % Sodium Chloride 500 ML ONE (20:34)
[2017-04-24 20:53] LABS: ABG Ionized Calcium 1.38 mmol/L (1.15-1.35)
[2017-04-25] MEDS: FentaNYL (PF) 1,000 MCG in 0.9 % Sodium Chloride 80 ML IVC SCH ×2 (00:20→05:41)
[2017-04-25] MEDS: Calcium Chloride 4,000 MG in 0.9 % Sodium Chloride 1,000 ML CRRT SCH ×3 (01:16→18:06)
[2017-04-25] MEDS: VECURONIUM IVC SCH ×2 (02:21→16:08)
[2017-04-25] MEDS: SODIUM CHLORIDE IVC SCH ×2 (02:21→16:08)
[2017-04-25 03:45] LABS: ABG Base Excess 3 mEq/L (-2 to 3); ABG HCO3 28 mEq/L (21-27); ABG Oxygen Saturation 94 % (95-98); ABG PCO2 50 mmHg (35-45); ABG PH 7.37 pH Units (7.32-7.45); ABG PO2 76 mmHg (85-104); ABG TCO2 30 mEq/L (20-26); Blood Gas Modality ASSIST CONTROL; Blood Gas PEEP 12 cm H2O; Blood Gas Respiration Rate 22; Blood Gas VT 450 cc
[2017-04-25] MEDS: Piperacillin/Tazobactam 3.375 GM in 0.9 % Sodium Chloride Mini Bag 100 ML IVPB SCH ×3 (04:30→20:17)
[2017-04-25] MEDS: Nafcillin 2,000 MG in 0.9 % Sodium Chloride Mini Bag 100 ML IVPB SCH ×5 (04:30→20:17)
[2017-04-25] MEDS: Lacri-Lube 3.5 GM TUBE BOTH EYES SCH ×5 (04:31→20:19)
[2017-04-25] MEDS: PrismaSATE BGK 4/2.5 5,000 ML CRRT SCH ×8 (04:32→19:24)
[2017-04-25 04:47] LABS: Hematocrit 28.6 % (37.5-50.1); Hemoglobin 9.1 g/dL (12.9-16.9); Mean Corpuscular HGB Conc 31.8 g/dL (31.6-35.5); Mean Corpuscular Hemoglobin 27.3 pg (28.0-33.3); Mean Corpuscular Volume 85.9 fL (83.0-100.0); Mean Platelet Volume 10.4 fL (9.4-12.4); Platelet Count 118 K/mcL (140-400); Red Blood Count 3.33 M/mcL (4.19-5.50); Red Cell Distribution Width 14.2 % (11.5-14.5)
[2017-04-25 05:01] LABS: Albumin 2.6 g/dL (3.5-5.7); Bilirubin,Direct 0.7 mg/dL (0.0-0.2); Bilirubin,Indirect 0.5 mg/dL (0.0-1.2); Bilirubin,Total 1.2 mg/dL (0.3-1.0); Calcium 10.1 mg/dL (8.6-10.3); Globulin 2.7 g/dL (2.4-3.5); Magnesium 2.1 mg/dL (1.6-2.6); Phosphorous 3.5 mg/dL (2.7-4.5); Potassium 4.4 mEq/L (3.5-5.1); Total Protein 5.3 g/dL (6.4-8.9)
[2017-04-25 05:06] LABS: Calcium 10.2 mg/dL (8.6-10.3); Potassium 4.4 mEq/L (3.5-5.1)
[2017-04-25 05:12] LABS: Eosinophils # 0.6 K/mcL (0.0-0.6); Lymphocytes # 3.2 K/mcL (0.6-4.6); Monocytes # 0.9 K/mcL (0.0-1.3); Neutrophils # 9.5 K/mcL (1.6-8.9); Platelet Estimate Slight Decrease (Normal); Reactive Lymphocytes Present (Not Present); Toxic Granulation Present (Not Present)
[2017-04-25] MEDS: Pantoprazole 40 MG VIAL IVP SCH ×2 (06:25→17:47)
[2017-04-25] MEDS: Norepinephrine 16 MG in D5% in Water 500 ML IVC SCH ×2 (07:30→07:48)
--- NOTE | 2017-04-25 07:34 | Nephrology Progress Note ---
Date of Encounter: 04/25/17 Time of Encounter: 08:00 - Assessment and Plan (1) NANCY (acute kidney injury) Current Visit: Yes Status: Acute Would continue Nahomy 4K/2.5Ca at 1000 dialysate and 1000 replacement fluid with Citrate/Calcium for regional anticoagulation to help support the filter. Well balanced electrolytes. UF has been helping with a net negative I/Os over the last few days, so today we may run him for a goal of net even volume status. The the effluent dose is <25, he is now tolerating the Nahomy when before he did not d/t hypotension. Rec ramping upon the UF to Net+25 to 50mL/hr with a maximum ceiling of Net+75mL/ hr for the next 24hr. If hemodynamics worsen, then would need to dec UF rates. Renal dosing while on Nahomy: assume an effect GFR of near 30. Dose Vanco, if continued, by trough levels as discussed with the ICU team, and narrow the Antibiotic spectrum when able. Continue to follow a renal protective strategy and strict I/Os and daily weights. Will closely follow with you. (2) Hyponatremia Current Visit: Yes Status: Acute Improved. (3) Abdominal compartment syndrome Current Visit: Yes Status: Acute Appears resolved. Qualifiers: Compartment syndrome type: non-traumatic Qualified Code(s): M79.A3 - Nontraumatic compartment syndrome of abdomen (4) Septic shock Current Visit: Yes Status: Acute ICU following. Remains on pressors, so I'll be gentle with UF. Subjective Principal diagnosis: Sepsis/Septic Shock Interval history: Pt was s/e and remains intubated thus limiting subjective history. I discussed CRRT with the [employer] ATTENDANT: the Nahomy filter remains intact since the prior evening; tolerating fluid removal. The pt is getting ready to have the paralytic Rx held. Objective - Vital Signs Vital signs: Vital Signs Temp Pulse Resp BP Pulse Ox 04/25/17 07:00 73 22 97/56 99 04/25/17 06:00 72 22 102/60 98 04/25/17 05:35 22 104/58 96 04/25/17 05:00 74 22 103/61 96 04/25/17 04:00 97.8 F 74 22 122/69 98 04/25/17 03:35 22 118/63 98 04/25/17 03:00 75 22 120/61 97 04/25/17 02:00 73 22 98/51 97 18 01:04 22 115/57 94 04/25/17 01:00 74 22 115/55 94 18 00:00 98.3 F 82 22 103/46 95 18 23:18 22 97/51 95 04/24/17 23:00 78 22 115/56 95 04/24/17 22:00 75 22 104/55 92 04/24/17 21:51 22 101/53 90 04/24/17 21:00 79 22 122/51 94 04/24/17 20:00 98.0 F 76 22 127/52 94 04/24/17 19:34 22 121/53 94 04/24/17 19:00 79 22 125/50 94 04/24/17 18:00 78 22 123/50 93 18 17:59 22 92 04/24/17 17:00 78 22 119/48 93 04/24/17 16:12 22 93 04/24/17 16:00 80 22 111/44 94 04/24/17 15:00 97.9 F 88 22 118/59 95 04/24/17 13:59 77 22 131/53 94 04/24/17 13:00 74 22 109/50 92 04/24/17 12:00 97.9 F 77 22 122/47 94 18 11:37 77 18 11:21 20 95 04/24/17 11:00 79 22 123/52 89 04/24/17 10:03 22 93 04/24/17 10:00 81 22 113/47 93 04/24/17 09:00 80 22 130/51 93 04/24/17 08:00 97.9 F 80 22 115/47 92 04/24/17 07:48 22 91 18 07:34 82 Intake and Output 04/24/17 04/24/17 04/25/17 15:59 23:59 07:59 Intake Total 1933.70 / 1933.70 9.78 / 2038.78 2089.5 / 2088.5 Output Total 2636 / 2636 2790 / 2790 2585 / 2585 Balance -702.30 / -702.30 -750.22 / -750.22 -495.5 / -495.5 Intake: IV Fluids 1726.70 / 1726.70 1845.78 / 1845.78 2058.5 / 2058.5 Calcium Chloride 4,000 MG In 0. 1040 / 1040 360 / 360 1143.7 / 1143.7 9 % Sodium Chloride 1,000 ML @ 40 mls/hr CRRT CONT [facility] Rx#: [id number] PrismaSATE BGK 4/2.5 5,000 ML @ 0 / 0 0 / 0 0 / 0 1500 mls/hr CRRT CONT [facility] Rx#: [id number] DOPamine Premix 400mg/250mL 400 347 / 347 93.1 / 93.1 mg In 250 ml @ 2.5 MCG/KG/MIN 9.281 mls/hr IVC .Q24H [facility] Rx#: [id number] FentaNYL (PF) 1,000 MCG In 0.9 200 / 200 100 / 100 200 / 200 % Sodium Chloride 80 ML @ 50 MCG/HR 5 mls/hr IVC CONT [facility] Rx #:[id number] HumuLIN R 100 UNIT In 0.9 % 41.70 / 41.70 18.78 / 18.78 23.6 / 23.6 Sodium Chloride 100 ML @ 12 UNIT/HR 12.12 mls/hr IVC CONT [facility] Rx#:[id number] Versed 50 MG In 0.9 % Sodium 100 / 100 100 / 100 Chloride 90 ML @ 2 MG/HR 4 mls/ hr IVC CONT [facility] Rx#:[id number] Levophed 16 MG In Dextrose 5% 350 / 350 161 / 161 500 ML @ 25 MCG/MIN 48.37 mls/ hr IVC CONT [facility] Rx#:[id number] Norcuron 50 MG In 0.9 % Sodium 35 / 35 150 / 150 Chloride 150 ML @ 0.8 MCG/KG/ MIN 14.25 mls/hr IVC CONT [facility] Rx#:[id number] Norcuron 50 MG In Empty Bag 50 237.1 / 237.1 Each In 0.9 % Sodium Chloride 150 ML @ 0.8 MCG/KG/MIN 14.25 mls/hr IVC CONT [facility] Rx#: [id number] Definity 1.3 ML In Normal 10 / 10 Saline Flush 8.7 ML @ 1200 mls/ hr IVP ONCE ONE Rx#:[id number] Calcium Gluconate 1,000 MG In 0 110 / 110 110 / 110 .9 % Sodium Chloride 100 ML @ 220 mls/hr IVPB ONCE PRN Rx#: [id number] Nafcillin 2,000 MG In 0.9 % 100 / 100 200 / 200 200 / 200 Sodium Chloride (Mini-Bag +) 100 ML @ 200 mls/hr IVPB Q4HR [facility] Rx#:[id number] Zosyn 3.375 GM In 0.9 % Sodium 100 / 100 100 / 100 Chloride (Mini-Bag +) 100 ML @ 25 mls/hr IVPB Q8H [facility] Rx#: [id number] Tube Feeding 127 / 127 94 / 94 31 / 31 Free Water 80 / 80 100 / 100 Output: Nahomy 2636 / 2636 2785 / 2785 2553 / 2553 Catheter 0 / 0 5 / 5 32 / 32 Other: Blood Glucose* 122 165 151 - General Appearance General appearance: Present: sedated on ventilator, intubated EENT: Present: ATNC Neck: Present: supple Respiratory: Present: clear Cardiology: Present: no edema, regular rate, regular rhythm, normal S1, normal S2 Dialysis Vascular Access: Venous Catheter (Right femoral HD temporary catheter had dressing that was C/D/I.) Gastrointestinal: Present: normoactive bowel sounds, no tenderness Integumentary: Present: warm and dry Additional Comments: He has been intubated and sedated and on a paralytic Musculoskeletal: Present: no clubbing - Lab 04/25/17 03:47 04/25/17 03:47 Most recent lab results ABG pH 7.37 pH Units (7.32-7.45) 04/25/17 03:41 ABG pCO2 50 mmHg (35-45) H 04/25/17 03:41 ABG pO2 76 mmHg (85-104) L 04/25/17 03:41 ABG HCO3 28 mEq/L (21-27) H 04/25/17 03:41 ABG O2 Saturation 94 % (95-98) L 04/25/17 03:41 Calcium 10.2 mg/dL (8.6-10.3) 04/25/17 03:47 Phosphorus 3.5 mg/dL (2.7-4.5) 04/25/17 03:47 Magnesium 2.1 mg/dL (1.6-2.6) 04/25/17 03:47 - VTE Documentation of Mechanical Device: Intermittent pneumatic compression device Consult Discharge Plan - Plan Referrals: Kannan Hurley DO [Primary Care Provider] - Juan Lake [Family Provider] -
[2017-04-25] MEDS: Aspirin 81 MG TAB.CHEW PO SCH (08:17)
[2017-04-25] MEDS: Chlorhexidine Rinse 15 ML MOUTHWASH MM SCH ×2 (08:17→20:17)
[2017-04-25] MEDS: *HR* Ticagrelor 90 MG TABLET PO SCH ×2 (08:17→20:17)
[2017-04-25 10:02] LABS: VBG HCO3 26 mEq/L (21-27); VBG PCO2 47 mmHg (41-51); VBG PH 7.35 pH Units (7.32-7.42); VBG PO2 225 mmHg (25-50)
[2017-04-25 10:02] LABS: VBG Ionized Calcium 1.33 mmol/L (1.15-1.35); VBG PH 7.36 pH Units (7.32-7.42)
[2017-04-25 10:02] LABS: VBG Ionized Calcium 0.82 mmol/L (1.15-1.35); VBG PH 7.16 pH Units (7.32-7.42)
[2017-04-25 10:02] LABS: ABG Ionized Calcium 1.34 mmol/L (1.15-1.35)
[2017-04-25 10:02] LABS: VBG Ionized Calcium 1.36 mmol/L (1.15-1.35)
[2017-04-25 10:02] LABS: VBG Ionized Calcium 1.01 mmol/L (1.15-1.35)
[2017-04-25] MEDS: FentaNYL (PF) 2,500 MCG in EMPTY BAG 1 EACH IVC SCH (10:58)
--- NOTE | 2017-04-25 11:12 | Pulmonology Progress Note ---
<Ciaran Cristobal Sy - Last Filed: 04/25/17 11:19> Date of Encounter: 04/25/17 Time of Encounter: 07:30 Assessment and Plan (1) Septic shock Current Visit: Yes Status: Acute Secondary to Staph aureus bacteremia. Lactic acid improving Requiring hemodynamic support with norepinephrine and dopamine, titrated to MAP >65. Patient has increasing leukocytosis. Will culture sputum, continue abx. Empiric antibiotics Zosyn day 1 Nafcillin day 3 Discontinued: Meropenem on day 3 Microbiology: Sputum culture prelim many WBC, no bacteria. Blood culture peripheral 04/22 (-) @48hr Blood culture peripheral 04/20 (+) MSSA Wound culture Lt wrist 04/20 (+) MSSA Anaerobic culture Lt wrist 04/20 (-) prelim. 5d incubation pending. Neurosedatives: Wean paralytic to off. Continue sedative and analgesic. Ventilator: Wean PEEP and FiO2 as tolerated. Pressors: Norepinephrine and dopamine wean to minimum for MAP > 65 Draw random cortisol. Stress dose steroids if needed. Repeat CXR in AM. (2) Acute respiratory failure with hypoxia Current Visit: Yes Status: Acute Secondary to hypoxia in the setting of septic shock. Lung protective measures. Will follow with ABG and titrate vent settings accordingly. Antibiotics as above. (3) Cardiac arrest Current Visit: Yes Status: Resolved Cardiac arrest 04/21. PEA (6 rounds CPR, 4 rounds epi, 2A bicarb) to Sinus tachycardia to SVT (cardiovert x1 at 100J) to NSR. Cardiology consulted; suspect metabolic cause. (4) Coronary artery disease Current Visit: Yes Status: Chronic LHC 04/16/17 with RAMÍREZ to prox circ. LVEF 55% with normal contractility. Hx CABC x4 in 2012. Hx DM, HTN, HLD, CAD Continue lipitor, aspirin, brilinta, norvasc. Qualifiers: Coronary Disease-Associated Artery/Lesion type: hughes artery [place] vs. transplanted heart: hughes heart Associated angina: with other forms of angina Qualified Code(s): I25.118 - Atherosclerotic heart disease of hughes coronary artery with other forms of angina pectoris (5) Hematoma Current Visit: Yes Status: Acute Right rectus sheath hematoma per CTA abdomen pelvis 04/20 Negative workup for femoral artery pseudoaneursym. (arterial imaging) Per general surgery; hematoma without active bleed, no indication for surgical intervention at this time. Gen surg sign-off 04/24. (6) Stage 3 acute kidney injury Current Visit: Yes Status: Acute Acute Kidney injury likely secondary to septic shock On MARTIN Renal function improving. Nephrology following. Subjective Principal diagnosis: Sepsis/Septic Shock Interval history: Hospital day 5/ Post cardiac arrest day 4 No acute events overnight. Patient is stable at this time though still tenuous and critical medically. Neuro: Patient remains sedated on versed. Analgesia with fentanyl. Plan to wean from paralysis today. CV: Patient remains dependent upon norepinephrine and dopamine, titrated to minimal dose as tolerated by HR and BP. Pulm: Patient's oxygenation improved with lung protective settings. PEEP remains in the 12 range; lung de-recruitment occurs with reduced PEEP, hypotension occurs with increased PEEP. Will continue to monitor/manage. GI: Tube feeds, unchanged. GI sign-off at this time. Renal: Cumulative fluid -40mL. On MARTIN. Goal net neutral in I & O today. Heme/ID: MSSA bacteremia and pneumonia. Continue zosyn, nafcillin. Skin: Patient does not currently tolerate turning. Objective PUL Vital signs: Last Vital Signs Temp 97.4 F L 04/25/17 08:00 Pulse 66 04/25/17 11:00 Resp 22 04/25/17 11:00 BP 105/54 04/25/17 11:00 Pulse Ox 95 04/25/17 11:00 General appearance: no acute distress Eyes: nonicteric ENT: oropharynx moist Neck: supple Effort: normal Auscultation: bilateral: clear, diminished breath sounds Cardiovascular: regular rate and rhythm Gastrointestinal: hypoactive bowel sounds, soft, non-distended Integumentary: normal Extremities: no cyanosis, no edema, no clubbing, pink and warm, pulses normal, no ischemia or petechiae Musculoskeletal: no deformities pupils equal and round, unable to assess due to mental status Ventilator Settings Ventilator Settings: Ventilator Settings, Last 8 Hours Ventilator Mode A/C Ventilator Mode A/C Ventilator Mode A/C Ventilator Mode A/C Ventilator Mode A/C Ventilator Mode A/C Ventilator Mode A/C Ventilator Mode A/C Ventilator Mode A/C Ventilator Mode A/C Ventilator Mode A/C Ventilator Mode A/C Ventilator Mode A/C Ventilator Tidal Volume 450 Setting Ventilator Tidal Volume 450 Setting Ventilator Tidal Volume 450 Setting Ventilator Tidal Volume 450 Setting Ventilator Tidal Volume 450 Setting Ventilator Tidal Volume 450 Setting Ventilator Tidal Volume 450 Setting Ventilator Tidal Volume 450 Setting Ventilator Tidal Volume 450 Setting Ventilator Tidal Volume 450 Setting Ventilator Tidal Volume 450 Setting Ventilator Tidal Volume 450 Setting Ventilator Tidal Volume 450 Setting Ventilator Respiratory Rate 22 Setting Ventilator Respiratory Rate 22 Setting Ventilator Respiratory Rate 22 Setting Ventilator Respiratory Rate 22 Setting Ventilator Respiratory Rate 22 Setting Ventilator Respiratory Rate 22 Setting Ventilator Respiratory Rate 22 Setting Ventilator Respiratory Rate 22 Setting Ventilator Respiratory Rate 22 Setting Ventilator Respiratory Rate 22 Setting Ventilator Respiratory Rate 22 Setting Ventilator Respiratory Rate 22 Setting Ventilator Respiratory Rate 22 Setting Actual Respiratory Rate 22 Actual Respiratory Rate 22 Actual Respiratory Rate 22 Actual Respiratory Rate 22 Actual Respiratory Rate 22 Actual Respiratory Rate 22 Actual Respiratory Rate 22 Actual Respiratory Rate 22 Actual Respiratory Rate 22 Actual Respiratory Rate 22 Actual Respiratory Rate 22 Actual Respiratory Rate 22 Positive End Expiratory 12 Pressure Positive End Expiratory 12 Pressure Positive End Expiratory 12 Pressure Positive End Expiratory 12 Pressure Positive End Expiratory 12 Pressure Positive End Expiratory 12 Pressure Positive End Expiratory 12 Pressure Positive End Expiratory 12 Pressure Positive End Expiratory 12 Pressure Positive End Expiratory 12 Pressure Positive End Expiratory 12 Pressure Positive End Expiratory 12 Pressure Positive End Expiratory 12 Pressure Peak Inspiratory Airway 33 Pressure Peak Inspiratory Airway 35 Pressure Peak Inspiratory Airway 33 Pressure Peak Inspiratory Airway 34 Pressure Peak Inspiratory Airway 34 Pressure Peak Inspiratory Airway 31 Pressure Peak Inspiratory Airway 34 Pressure Peak Inspiratory Airway 33 Pressure Peak Inspiratory Airway 35 Pressure Peak Inspiratory Airway 33 Pressure Peak Inspiratory Airway 36 Pressure Peak Inspiratory Airway 35 Pressure Results - Laboratory Findings CBC and BMP: 04/25/17 03:47 04/25/17 03:47 ABG ABG pH 7.37 pH Units (7.32-7.45) 04/25/17 03:41 ABG pCO2 50 mmHg (35-45) H 04/25/17 03:41 ABG pO2 76 mmHg (85-104) L 04/25/17 03:41 ABG O2 Saturation 94 % (95-98) L 04/25/17 03:41 PT/INR, D-dimer PT 16.2 Seconds (9.4-12.1) H 04/21/17 14:25 D-Dimer 5447 ng/mLFEU (0-500) H 04/21/17 05:41 Abnormal lab findings: Abnormal lab results WBC 14.4 K/mcL (4.3-11.1) H 04/25/17 03:47 RBC 3.33 M/mcL (4.19-5.50) L 04/25/17 03:47 Hgb 9.1 g/dL (12.9-16.9) L 04/25/17 03:47 Hct 28.6 % (37.5-50.1) L 04/25/17 03:47 MCH 27.3 pg (28.0-33.3) L 04/25/17 03:47 Plt Count 118 K/mcL (140-400) L 04/25/17 03:47 Immature Gran % 5.0 % (0-4) H 04/24/17 03:55 Metamyelocytes % 4.0 % (0) H 04/21/17 03:30 Myelocytes % 2.0 % (0) H 04/25/17 03:47 Neutrophils # 9.5 K/mcL (1.6-8.9) H 04/25/17 03:47 Nucleated RBCs/100 WBC 0.2 /100 WBC (0) H 04/23/17 03:00 Reactive Lymphocytes Present (Not Present) A 04/25/17 03:47 Toxic Granulation Present (Not Present) A 04/25/17 03:47 Toxic Vacuolation Present (Not Present) A 04/21/17 14:25 Platelet Estimate Slight Decrease (Normal) L 04/25/17 03:47 Immature Plt Fraction 9.4 % (1.1-6.1) H 04/23/17 03:00 PT 16.2 Seconds (9.4-12.1) H 04/21/17 14:25 Fibrinogen 583 mg/dL (169-393) H 04/21/17 12:50 D-Dimer 5447 ng/mLFEU (0-500) H 04/21/17 05:41 ABG pCO2 50 mmHg (35-45) H 04/25/17 03:41 ABG pO2 76 mmHg (85-104) L 04/25/17 03:41 ABG HCO3 28 mEq/L (21-27) H 04/25/17 03:41 ABG Total CO2 30 mEq/L (20-26) H 04/25/17 03:41 ABG O2 Saturation 94 % (95-98) L 04/25/17 03:41 VBG pH 7.16 pH Units (7.32-7.42) L* 04/25/17 06:47 VBG pO2 225 mmHg (25-50) H 04/25/17 00:20 BUN 38 mg/dL (8-23) H 04/25/17 03:47 Creatinine 2.74 mg/dL (0.70-1.30) H 04/25/17 03:47 Est GFR ( Amer) 29 (> 60) L 04/25/17 03:47 Est GFR (Non-Af Amer) 24 (> 60) L 04/25/17 03:47 Glucose 167 mg/dL (70-105) H 04/25/17 03:47 POC Glucose 165 (58-89) H 04/24/17 22:59 Calculated Osmolality 301 (280-300) H 04/25/17 03:47 Venous Ioniz Calcium 1.01 mmol/L (1.15-1.35) L 04/25/17 08:59 Total Bilirubin 1.2 mg/dL (0.3-1.0) H 04/25/17 03:47 Direct Bilirubin 0.7 mg/dL (0.0-0.2) H 04/25/17 03:47 AST 63 Units/L (13-39) H 04/25/17 03:47 ALT 106 Units/L (7-52) H 04/25/17 03:47 Troponin I 4.23 ng/mL (< 0.04) H* 04/21/17 14:25 Serum Total Protein 5.3 g/dL (6.4-8.9) L 04/25/17 03:47 Albumin 2.6 g/dL (3.5-5.7) L 04/25/17 03:47 Albumin/Globulin Ratio 1.0 (1.1-2.2) L 04/25/17 03:47 HDL Cholesterol 27 mg/dL (40-59) L 04/20/17 03:48 Vancomycin Trough 39.7 mcg/mL (10-20) H* 04/21/17 12:50 Staphylococcus sp PCR DETECTED (Not Detect) A 04/20/17 03:48 Staph aureus (PCR) DETECTED (Not Detect) A 04/20/17 03:48 - Microbiology Findings Microbiology Findings: Microbiology, Last 48 Hours 04/20/17 10:15 Anaerobic Culture - Final Left Wrist - Abscess No anaerobes were recovered. 04/24/17 11:15 Sputum Culture - Preliminary Sputum 04/22/17 12:35 Blood Culture - Preliminary Peripheral Venipuncture No growth. 04/22/17 12:35 Blood Culture - Preliminary Peripheral Venipuncture No growth. - Clinical Findings Intake & Output: Intake & Output 04/24/17 04/25/17 04/25/17 23:59 07:59 15:59 Intake Total 2039.78 / 2039.78 2414.5 / 2414.5 868.8 / 868.8 Output Total 2790 / 2790 2585 / 2585 1154 / 1154 Balance -750.22 / -750.22 -170.5 / -170.5 -285.2 / -285.2 - VTE Documentation of Mechanical Device: Intermittent pneumatic compression device Consult Discharge Plan - Plan Referrals: Kannan Hurley DO [Primary Care Provider] - Juan Lake [Family Provider] - <Dmitri Mckeon S - Last Filed: 04/25/17 22:08> Date of Encounter: 04/25/17 Objective PUL Vital signs: Last Vital Signs Temp 97.6 F 04/25/17 20:00 Pulse 87 04/25/17 20:00 Resp 22 04/25/17 21:25 BP 90/50 04/25/17 21:25 Pulse Ox 97 04/25/17 21:25 Ventilator Settings Ventilator Settings: Ventilator Settings, Last 8 Hours Ventilator Mode A/C Ventilator Mode A/C Ventilator Mode A/C Ventilator Mode A/C Ventilator Mode A/C Ventilator Mode A/C Ventilator Mode A/C Ventilator Mode A/C Ventilator Mode A/C Ventilator Mode A/C Ventilator Mode A/C Ventilator Tidal Volume 450 Setting Ventilator Tidal Volume 450 Setting Ventilator Tidal Volume 450 Setting Ventilator Tidal Volume 450 Setting Ventilator Tidal Volume 450 Setting Ventilator Tidal Volume 450 Setting Ventilator Tidal Volume 450 Setting Ventilator Tidal Volume 450 Setting Ventilator Tidal Volume 450 Setting Ventilator Tidal Volume 450 Setting Ventilator Tidal Volume 450 Setting Ventilator Respiratory Rate 22 Setting Ventilator Respiratory Rate 22 Setting Ventilator Respiratory Rate 22 Setting Ventilator Respiratory Rate 22 Setting Ventilator Respiratory Rate 22 Setting Ventilator Respiratory Rate 22 Setting Ventilator Respiratory Rate 22 Setting Ventilator Respiratory Rate 22 Setting Ventilator Respiratory Rate 22 Setting Ventilator Respiratory Rate 22 Setting Ventilator Respiratory Rate 22 Setting Actual Respiratory Rate 27 Actual Respiratory Rate 24 Actual Respiratory Rate 23 Actual Respiratory Rate 22 Actual Respiratory Rate 22 Actual Respiratory Rate 24 Actual Respiratory Rate 23 Actual Respiratory Rate 25 Actual Respiratory Rate 23 Actual Respiratory Rate 22 Positive End Expiratory 10 Pressure Positive End Expiratory 10 Pressure Positive End Expiratory 10 Pressure Positive End Expiratory 10 Pressure Positive End Expiratory 10 Pressure Positive End Expiratory 10 Pressure Positive End Expiratory 10 Pressure Positive End Expiratory 10 Pressure Positive End Expiratory 10 Pressure Positive End Expiratory 10 Pressure Positive End Expiratory 10 Pressure Peak Inspiratory Airway 21 Pressure Peak Inspiratory Airway 30 Pressure Peak Inspiratory Airway 31 Pressure Peak Inspiratory Airway 31 Pressure Peak Inspiratory Airway 37 Pressure Peak Inspiratory Airway 37 Pressure Peak Inspiratory Airway 36 Pressure Peak Inspiratory Airway 31 Pressure Peak Inspiratory Airway 29 Pressure Peak Inspiratory Airway 33 Pressure Results - Laboratory Findings CBC and BMP: 04/25/17 03:47 04/25/17 03:47 ABG ABG pH 7.39 pH Units (7.32-7.45) 04/25/17 15:32 ABG pCO2 44 mmHg (35-45) 04/25/17 15:32 ABG pO2 88 mmHg (85-104) 04/25/17 15:32 ABG O2 Saturation 97 % (95-98) 04/25/17 15:32 PT/INR, D-dimer PT 16.2 Seconds (9.4-12.1) H 04/21/17 14:25 D-Dimer 5447 ng/mLFEU (0-500) H 04/21/17 05:41 Abnormal lab findings: Abnormal lab results WBC 14.4 K/mcL (4.3-11.1) H 04/25/17 03:47 RBC 3.33 M/mcL (4.19-5.50) L 04/25/17 03:47 Hgb 9.1 g/dL (12.9-16.9) L 04/25/17 03:47 Hct 28.6 % (37.5-50.1) L 04/25/17 03:47 MCH 27.3 pg (28.0-33.3) L 04/25/17 03:47 Plt Count 118 K/mcL (140-400) L 04/25/17 03:47 Immature Gran % 5.0 % (0-4) H 04/24/17 03:55 Metamyelocytes % 4.0 % (0) H 04/21/17 03:30 Myelocytes % 2.0 % (0) H 04/25/17 03:47 Neutrophils # 9.5 K/mcL (1.6-8.9) H 04/25/17 03:47 Nucleated RBCs/100 WBC 0.2 /100 WBC (0) H 04/23/17 03:00 Reactive Lymphocytes Present (Not Present) A 04/25/17 03:47 Toxic Granulation Present (Not Present) A 04/25/17 03:47 Toxic Vacuolation Present (Not Present) A 04/21/17 14:25 Platelet Estimate Slight Decrease (Normal) L 04/25/17 03:47 Immature Plt Fraction 9.4 % (1.1-6.1) H 04/23/17 03:00 PT 16.2 Seconds (9.4-12.1) H 04/21/17 14:25 Fibrinogen 583 mg/dL (169-393) H 04/21/17 12:50 D-Dimer 5447 ng/mLFEU (0-500) H 04/21/17 05:41 ABG Total CO2 28 mEq/L (20-26) H 04/25/17 15:32 VBG pH 7.24 pH Units (7.32-7.42) L 04/25/17 19:05 VBG pCO2 66 mmHg (41-51) H 04/25/17 19:05 VBG pO2 70 mmHg (25-50) H 04/25/17 19:05 VBG HCO3 28 mEq/L (21-27) H 04/25/17 19:05 BUN 38 mg/dL (8-23) H 04/25/17 03:47 Creatinine 2.74 mg/dL (0.70-1.30) H 04/25/17 03:47 Est GFR ( Amer) 29 (> 60) L 04/25/17 03:47 Est GFR (Non-Af Amer) 24 (> 60) L 04/25/17 03:47 Glucose 167 mg/dL (70-105) H 04/25/17 03:47 POC Glucose 165 (58-89) H 04/24/17 22:59 Calculated Osmolality 301 (280-300) H 04/25/17 03:47 Venous Ioniz Calcium 1.03 mmol/L (1.15-1.35) L 04/25/17 19:05 Total Bilirubin 1.2 mg/dL (0.3-1.0) H 04/25/17 03:47 Direct Bilirubin 0.7 mg/dL (0.0-0.2) H 04/25/17 03:47 AST 63 Units/L (13-39) H 04/25/17 03:47 ALT 106 Units/L (7-52) H 04/25/17 03:47 Troponin I 4.23 ng/mL (< 0.04) H* 04/21/17 14:25 Serum Total Protein 5.3 g/dL (6.4-8.9) L 04/25/17 03:47 Albumin 2.6 g/dL (3.5-5.7) L 04/25/17 03:47 Albumin/Globulin Ratio 1.0 (1.1-2.2) L 04/25/17 03:47 HDL Cholesterol 27 mg/dL (40-59) L 04/20/17 03:48 Vancomycin Trough 39.7 mcg/mL (10-20) H* 04/21/17 12:50 Staphylococcus sp PCR DETECTED (Not Detect) A 04/20/17 03:48 Staph aureus (PCR) DETECTED (Not Detect) A 04/20/17 03:48 - Microbiology Findings Microbiology Findings: Microbiology, Last 48 Hours 04/24/17 11:15 Sputum Culture - Preliminary Sputum Staphylococcus aureus 04/20/17 10:15 Anaerobic Culture - Final Left Wrist - Abscess No anaerobes were recovered. 04/22/17 12:35 Blood Culture - Preliminary Peripheral Venipuncture No growth. 04/22/17 12:35 Blood Culture - Preliminary Peripheral Venipuncture No growth. - Clinical Findings Intake & Output: Intake & Output 04/25/17 04/25/17 04/25/17 07:59 15:59 23:59 Intake Total 2414.5 / 2414.5 1947.70 / 1947.70 1049.72 / 1049.72 Output Total 2585 / 2585 2111 / 2111 1109 / 1109 Balance -170.5 / -170.5 -163.30 / -163.30 -59.28 / -59.28 - Attending Attestation - Attending Attestation I saw and evaluated this patient and my medical decision-making was reviewed with the Resident Physician. I agree with the documented findings, disposition and treatment plan as described except to the extent set forth below. We independently had [id number] contact with the patient I spent 35 minutes of Critical Care time with this patient. It involved decision making of high complexity to assess, manipulate, and support vital organ system failure and/or to prevent further life threatening deterioration of the patient's condition. The time involved in the performance of separately reportable procedures was not counted toward critical care time. Patient seen and examined at bedside Labs, radiology, chart personally reviewed. Management was reviewed during multidisciplinary critical care rounds. 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 now he is off paralysis started to follow commands Pulm: Patient hypoxic respiratory failure requiring high PEEP therapy which helps to convert the shunt fraction into V/Q mismatch brought down the FIO2 to 60% to keep the PEEP at 12 once the FIO2 is brought down to 40% will bring down the PEEP patient is currently paralyzed because of ventilator dyschrony when oxygenation stable of PEEP will stop the muscle relaxant The V/Q mismatch is due to fluid overload with multifocal pneumonia vs Septic embolic Try to come down the FIO2 of 40% with PEEP of 12 if he is tolerating the ventilator settings then will stop paralysis and see how he does . 04/25 Took the patient off paralysis patient has good ventilator synchrony to bring FIO2 first then bring down on the PEEP fluid removal as tolerated Cards:. Patient has some systolic heart failure , CAD with antiplatelet therapy patient doesnt have contraindications for anti-platelet therapy for now TTE didnt show any vegetations if next blood cultures positive will need LYDIA , blood culture which was sent 04/22 is in process . Patient is septic shock titrating down on the vasopressors . 04/24 titrating down the vasopressors 04/25 Patient is off vasopressors . FEN-GI:Feeding as per nutrition recs Renal: NANCY needing CCVHD to run even if he is stable off vasopressors will start back on gentle fluid removal . ID: To continue the broad spectrum antibiotics will start descalating soon the latest blood cultures were negative Heme/Onc:Labs reviewed with some thrombocytopenia is improving Endo: Glucose Monitored Integ/MSK: Skin Care per routine ICU Nursing Protocol to prevent ulcers. Lines: All lines examined without evidence of infection : Dispo: Critically ill with high risk of cardiorespiratory failure CODE:Full Code
[2017-04-25] MEDS: Dexmedetomidine HCl 400 MCG/100 ML MLS IVC SCH (12:32)
[2017-04-25] MEDS: EPINEPHrine 1 MG in 0.9 % Sodium Chloride 250 ML IVC SCH (12:32)
[2017-04-25 12:39] LABS: VBG Ionized Calcium 0.84 mmol/L (1.15-1.35)
[2017-04-25 15:37] LABS: ABG Base Excess 2 mEq/L (-2 to 3); ABG HCO3 27 mEq/L (21-27); ABG Oxygen Saturation 97 % (95-98); ABG PCO2 44 mmHg (35-45); ABG PH 7.39 pH Units (7.32-7.45); ABG PO2 88 mmHg (85-104); ABG TCO2 28 mEq/L (20-26); Blood Gas Modality ASSIST CONTROL; Blood Gas PEEP 10 cm H2O; Blood Gas Respiration Rate 22; Blood Gas VT 450 cc
[2017-04-25 17:27] LABS: VBG Ionized Calcium 1.08 mmol/L (1.15-1.35)
--- NOTE | 2017-04-25 17:29 | Procedure Note ---
<Ciaran Cristobal Sy - Last Filed: 04/25/17 17:26> Date of procedure: 04/25/17 Pre-op diagnosis: septic shock, ARDS Post-op diagnosis: same Procedure: Indication: (1) Original left subclavian CVC is leaking IVF at the junction of the blue capped catheter to the hub body. (2) The need for triple lumen CVC persists for continued multiple vasopressor support and CVC monitoring. Resident: Ciaran Cristobal DO Attending: Dmitri Mckeon MD The junction of the original blue capped catheter was confirmed to be loose from the hub body causing a slow leak of the IV fluid running through that catheter. A time-out was completed verifying correct patient, procedure, site, positioning, and special equipment. The patient was placed in supine position appropriate for central line replacement of the left subclavian vein. The patients left shoulder, access site, and central line hub were prepped and draped in sterile fashion. The brown port of the original central line easily elsy blood. The sutures of the hub on the original CVC were removed. Using a variation of the seldinger technique, the guide wire was guided down the brown port of the original CVC with ease. While holding and maintaining contact with the guide wire, the original CVC was removed with the distal end of the guide wire maintaining the path into the patient's left subclavian vein. Bleeding was controlled with gentle pressure using a sterile 4x4 gauze. A new triple lumen 9-[place] catheter was introduced into the the left subclavian vein using the Seldinger technique. The catheter was threaded smoothly over the guide wire and appropriate blood return was obtained. Each lumen of the catheter was evacuated of air and flushed with sterile saline. The catheter was then sutured in place to the skin and a sterile dressing applied and dated. Dr. Mckeon was present for the entire procedure. Estimated Blood Loss: 0-1mL The patient tolerated the procedure well and there were no complications. Post procedure chest XRay confirmed appropriate catheter tip placement. The line was cleared for use by nursing. Anesthesia: regional Surgeon: Ciaran Cristobal Was there an certified surgical tech/first assistant present: Yes Skimmer Reverberatory: Dmitri Mckeon Estimated blood loss (cc): 1 IV fluids (cc): 0 Urine output (cc): 0 Specimen: none Pathology: none sent Condition: critical Disposition: ICU <Dmitri Mckeon - Last Filed: 04/25/17 22:03> Procedure: I was there for the entire procedure assisted in critical steps of the procedure
[2017-04-25 19:12] LABS: VBG HCO3 28 mEq/L (21-27); VBG Ionized Calcium 1.03 mmol/L (1.15-1.35); VBG PCO2 66 mmHg (41-51); VBG PH 7.24 pH Units (7.32-7.42); VBG PO2 70 mmHg (25-50)
--- NOTE | 2017-04-25 19:24 | Electrocardiograph Report ---
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
[2017-04-25] MEDS: Insulin Human Regular 100 UNIT in 0.9 % Sodium Chloride 100 ML IVC SCH (21:00)
[2017-04-25 22:25] LABS: VBG Ionized Calcium 1.13 mmol/L (1.15-1.35)
[2017-04-26] MEDS: Calcium Chloride 4,000 MG in 0.9 % Sodium Chloride 1,000 ML CRRT SCH ×4 (00:04→21:16)
[2017-04-26] MEDS: Nafcillin 2,000 MG in 0.9 % Sodium Chloride Mini Bag 100 ML IVPB SCH ×6 (00:05→20:34)
[2017-04-26] MEDS: Lacri-Lube 3.5 GM TUBE BOTH EYES SCH ×6 (00:06→20:35)
[2017-04-26] MEDS: PrismaSATE BGK 4/2.5 5,000 ML CRRT SCH ×8 (00:23→21:34)
[2017-04-26] MEDS: FentaNYL (PF) 2,500 MCG in EMPTY BAG 1 EACH IVC SCH ×2 (01:05→12:21)
[2017-04-26] MEDS: Piperacillin/Tazobactam 3.375 GM in 0.9 % Sodium Chloride Mini Bag 100 ML IVPB SCH ×3 (04:11→20:34)
[2017-04-26 04:18] LABS: Hematocrit 29.1 % (37.5-50.1); Hemoglobin 9.2 g/dL (12.9-16.9); Mean Corpuscular HGB Conc 31.6 g/dL (31.6-35.5); Mean Corpuscular Hemoglobin 27.7 pg (28.0-33.3); Mean Corpuscular Volume 87.7 fL (83.0-100.0); Mean Platelet Volume 10.6 fL (9.4-12.4); Nucleated Red Blood Cells 0.1 /100 WBC (0); Platelet Count 134 K/mcL (140-400); Red Blood Count 3.32 M/mcL (4.19-5.50); Red Cell Distribution Width 14.4 % (11.5-14.5)
[2017-04-26 04:20] LABS: INR 1.4; Prothrombin Time 15.1 Seconds (9.4-12.1)
[2017-04-26 04:34] LABS: Albumin 2.8 g/dL (3.5-5.7); Albumin/Globulin Ratio 0.9 (1.1-2.2); Bilirubin,Direct 0.6 mg/dL (0.0-0.2); Bilirubin,Indirect 0.5 mg/dL (0.0-1.2); Bilirubin,Total 1.1 mg/dL (0.3-1.0); Calcium 10.2 mg/dL (8.6-10.3); Magnesium 2.1 mg/dL (1.6-2.6); Phosphorous 2.5 mg/dL (2.7-4.5); Potassium 4.2 mEq/L (3.5-5.1); Total Protein 5.8 g/dL (6.4-8.9)
[2017-04-26 04:49] LABS: Lymphocytes # 1.7 K/mcL (0.6-4.6); Monocytes # 1.4 K/mcL (0.0-1.3); Neutrophils # 10.1 K/mcL (1.6-8.9)
[2017-04-26 04:50] LABS: ABG Base Excess 2 mEq/L (-2 to 3); ABG HCO3 27 mEq/L (21-27); ABG Oxygen Saturation 93 % (95-98); ABG PCO2 41 mmHg (35-45); ABG PH 7.42 pH Units (7.32-7.45); ABG PO2 65 mmHg (85-104); ABG TCO2 28 mEq/L (20-26); Blood Gas Modality ASSIST CONTROL; Blood Gas PEEP 10 cm H2O; Blood Gas Respiration Rate 22; Blood Gas VT 450 cc
[2017-04-26 04:50] LABS: Platelet Estimate Slight Decrease (Normal); Reactive Lymphocytes Present (Not Present); Toxic Granulation Present (Not Present)
[2017-04-26] MEDS: Pantoprazole 40 MG VIAL IVP SCH ×2 (05:34→17:50)
[2017-04-26 06:42] LABS: VBG Ionized Calcium 1.12 mmol/L (1.15-1.35)
[2017-04-26] MEDS: Aspirin 81 MG TAB.CHEW PO SCH (08:18)
[2017-04-26] MEDS: *HR* Ticagrelor 90 MG TABLET PO SCH ×2 (08:18→20:33)
[2017-04-26] MEDS: Chlorhexidine Rinse 15 ML MOUTHWASH MM SCH ×2 (08:18→20:33)
--- NOTE | 2017-04-26 08:50 | Pulmonology Progress Note ---
<CristobalCiaran Sy - Last Filed: 04/26/17 12:21> Date of Encounter: 04/26/17 Time of Encounter: 07:15 Assessment and Plan (1) Septic shock Current Visit: Yes Status: Acute Secondary to Staph aureus bacteremia. Lactic acid improving Requiring hemodynamic support with norepinephrine and dopamine, titrated to MAP >65. Patient has increasing leukocytosis. Will culture sputum, continue abx. Empiric antibiotics: Nafcillin day 4 Zosyn day 3 (plan discontinue Sunday) Discontinued: Meropenem after 3days Microbiology: Sputum culture prelim many WBC, no bacteria. Blood culture peripheral 04/22 (-) @48hr Blood culture peripheral 04/20 (+) MSSA Wound culture Lt wrist 04/20 (+) MSSA Anaerobic culture Lt wrist 04/20 (-) prelim. 5d incubation pending. Neurosedatives: Wean paralytic to off. Wean versed to precedex. Begin seroquel. Restraints as patient waking up with reduced sedation. Ventilator: Wean PEEP and FiO2 as tolerated. Pressors: Norepinephrine and dopamine currently off. Random cortisol appropriate; no need for steroids at this time. (2) Acute respiratory failure with hypoxia Current Visit: Yes Status: Acute Secondary to hypoxia in the setting of septic shock. Lung protective measures. Will follow with ABG and titrate vent settings accordingly. Antibiotics as above. (3) Cardiac arrest Current Visit: Yes Status: Resolved Cardiac arrest 04/21. PEA (6 rounds CPR, 4 rounds epi, 2A bicarb) to Sinus tachycardia to SVT (cardiovert x1 at 100J) to NSR. Cardiology consulted; suspect metabolic cause. (4) Coronary artery disease Current Visit: Yes Status: Chronic LHC 04/16/17 with RAMÍREZ to prox circ. LVEF 55% with normal contractility. Hx CABC x4 in 2012. Hx DM, HTN, HLD, CAD Continue lipitor, aspirin, brilinta, norvasc. Qualifiers: Coronary Disease-Associated Artery/Lesion type: [place] artery [place] vs. transplanted heart: [place] heart Associated angina: with other forms of angina Qualified Code(s): I25.118 - Atherosclerotic heart disease of [place] coronary artery with other forms of angina pectoris (5) Hematoma Current Visit: Yes Status: Acute Right rectus sheath hematoma per CTA abdomen pelvis 04/20 Negative workup for femoral artery pseudoaneursym. (arterial imaging) Per general surgery; hematoma without active bleed, no indication for surgical intervention at this time. Gen surg sign-off 04/24. (6) Stage 3 acute kidney injury Current Visit: Yes Status: Acute Acute Kidney injury likely secondary to septic shock On MARTIN Renal function improving. Nephrology following. Subjective Principal diagnosis: Sepsis/Septic Shock Interval history: Hospital day 6/ Post cardiac arrest day 5 No acute events overnight. Neuro: Patient remains sedated on versed. Analgesia with fentanyl. Completely weaned from paralysis yesterday. Attempt transition from Versed to Precedex today. Begin seroquel today. CV: Patient is now 24hrs free from pressors. He has intermittently been sinus tachycardic. Will monitor. Pulm: Patient's oxygenation slowly improving with lung protective settings. PEEP remains in the 8-10 range. Continue weaning vent settings following lung protective measures as tolerated by hypoxia and hypotension. GI: Tube feeds, unchanged. Renal: Cumulative fluid -80mL. On MARTIN. Goal net neutral in I & O today. Heme/ID: MSSA bacteremia and pneumonia. Continue nafcillin. Discontinue zosyn Sunday. Skin: Patient does not currently tolerate turning. Objective PUL Vital signs: Last Vital Signs Temp 98.3 F 04/26/17 04:00 Pulse 94 04/26/17 08:00 Resp 23 04/26/17 08:00 BP 89/54 04/26/17 08:00 Pulse Ox 100 04/26/17 08:00 General appearance: no acute distress Eyes: nonicteric ENT: oropharynx moist Neck: supple Effort: normal Auscultation: bilateral: diminished breath sounds, rales (faint, bilateral posterior bases) Cardiovascular: regular rate and rhythm Gastrointestinal: normoactive bowel sounds, soft, non-tender, non-distended Integumentary: normal Extremities: no cyanosis, no edema, no clubbing, pink and warm, pulses normal, no ischemia or petechiae, other (left forearm cellulitis, eschar. Improving.) Musculoskeletal: no deformities pupils equal and round, unable to assess due to mental status Ventilator Settings Ventilator Settings: Ventilator Settings, Last 8 Hours Ventilator Mode A/C Ventilator Mode A/C Ventilator Mode A/C Ventilator Mode A/C Ventilator Mode A/C Ventilator Mode A/C Ventilator Mode A/C Ventilator Mode A/C Ventilator Mode A/C Ventilator Mode A/C Ventilator Mode A/C Ventilator Mode A/C Ventilator Tidal Volume 450 Setting Ventilator Tidal Volume 450 Setting Ventilator Tidal Volume 450 Setting Ventilator Tidal Volume 450 Setting Ventilator Tidal Volume 450 Setting Ventilator Tidal Volume 450 Setting Ventilator Tidal Volume 450 Setting Ventilator Tidal Volume 450 Setting Ventilator Tidal Volume 450 Setting Ventilator Tidal Volume 450 Setting Ventilator Tidal Volume 450 Setting Ventilator Tidal Volume 450 Setting Ventilator Respiratory Rate 22 Setting Ventilator Respiratory Rate 22 Setting Ventilator Respiratory Rate 22 Setting Ventilator Respiratory Rate 22 Setting Ventilator Respiratory Rate 22 Setting Ventilator Respiratory Rate 22 Setting Ventilator Respiratory Rate 22 Setting Ventilator Respiratory Rate 22 Setting Ventilator Respiratory Rate 22 Setting Ventilator Respiratory Rate 22 Setting Ventilator Respiratory Rate 22 Setting Ventilator Respiratory Rate 22 Setting Actual Respiratory Rate 22 Actual Respiratory Rate 25 Actual Respiratory Rate 24 Actual Respiratory Rate 23 Actual Respiratory Rate 25 Actual Respiratory Rate 25 Actual Respiratory Rate 26 Actual Respiratory Rate 22 Actual Respiratory Rate 23 Actual Respiratory Rate 24 Actual Respiratory Rate 26 Positive End Expiratory 10 Pressure Positive End Expiratory 10 Pressure Positive End Expiratory 10 Pressure Positive End Expiratory 10 Pressure Positive End Expiratory 10 Pressure Positive End Expiratory 10 Pressure Positive End Expiratory 10 Pressure Positive End Expiratory 10 Pressure Positive End Expiratory 10 Pressure Positive End Expiratory 10 Pressure Positive End Expiratory 10 Pressure Positive End Expiratory 10 Pressure Peak Inspiratory Airway 25 Pressure Peak Inspiratory Airway 26 Pressure Peak Inspiratory Airway 27 Pressure Peak Inspiratory Airway 26 Pressure Peak Inspiratory Airway 25 Pressure Peak Inspiratory Airway 27 Pressure Peak Inspiratory Airway 24 Pressure Peak Inspiratory Airway 26 Pressure Peak Inspiratory Airway 25 Pressure Peak Inspiratory Airway 27 Pressure Peak Inspiratory Airway 25 Pressure Results - Laboratory Findings CBC and BMP: 04/26/17 04:00 04/26/17 04:00 ABG ABG pH 7.42 pH Units (7.32-7.45) 04/26/17 04:46 ABG pCO2 41 mmHg (35-45) 04/26/17 04:46 ABG pO2 65 mmHg (85-104) L 04/26/17 04:46 ABG O2 Saturation 93 % (95-98) L 04/26/17 04:46 PT/INR, D-dimer PT 15.1 Seconds (9.4-12.1) H 04/26/17 04:00 D-Dimer 5447 ng/mLFEU (0-500) H 04/21/17 05:41 Abnormal lab findings: Abnormal lab results WBC 14.4 K/mcL (4.3-11.1) H 04/26/17 04:00 RBC 3.32 M/mcL (4.19-5.50) L 04/26/17 04:00 Hgb 9.2 g/dL (12.9-16.9) L 04/26/17 04:00 Hct 29.1 % (37.5-50.1) L 04/26/17 04:00 MCH 27.7 pg (28.0-33.3) L 04/26/17 04:00 Plt Count 134 K/mcL (140-400) L 04/26/17 04:00 Immature Gran % 5.0 % (0-4) H 04/24/17 03:55 Band Neutrophils % 8.0 % (0-4) H 04/26/17 04:00 Metamyelocytes % 2.0 % (0) H 04/26/17 04:00 Myelocytes % 6.0 % (0) H 04/26/17 04:00 Neutrophils # 10.1 K/mcL (1.6-8.9) H 04/26/17 04:00 Monocytes # 1.4 K/mcL (0.0-1.3) H 04/26/17 04:00 Nucleated RBCs/100 WBC 0.1 /100 WBC (0) H 04/26/17 04:00 Reactive Lymphocytes Present (Not Present) A 04/26/17 04:00 Toxic Granulation Present (Not Present) A 04/26/17 04:00 Toxic Vacuolation Present (Not Present) A 04/21/17 14:25 Platelet Estimate Slight Decrease (Normal) L 04/26/17 04:00 Immature Plt Fraction 9.4 % (1.1-6.1) H 04/23/17 03:00 PT 15.1 Seconds (9.4-12.1) H 04/26/17 04:00 Fibrinogen 583 mg/dL (169-393) H 04/21/17 12:50 D-Dimer 5447 ng/mLFEU (0-500) H 04/21/17 05:41 ABG pO2 65 mmHg (85-104) L 04/26/17 04:46 ABG Total CO2 28 mEq/L (20-26) H 04/26/17 04:46 ABG O2 Saturation 93 % (95-98) L 04/26/17 04:46 VBG pH 7.24 pH Units (7.32-7.42) L 04/25/17 19:05 VBG pCO2 66 mmHg (41-51) H 04/25/17 19:05 VBG pO2 70 mmHg (25-50) H 04/25/17 19:05 VBG HCO3 28 mEq/L (21-27) H 04/25/17 19:05 BUN 33 mg/dL (8-23) H 04/26/17 04:00 Creatinine 2.29 mg/dL (0.70-1.30) H 04/26/17 04:00 Est GFR ( Amer) 35 (> 60) L 04/26/17 04:00 Est GFR (Non-Af Amer) 29 (> 60) L 04/26/17 04:00 Glucose 201 mg/dL (70-105) H 04/26/17 04:00 POC Glucose 174 (58-89) H 04/26/17 01:04 Calculated Osmolality 303 (280-300) H 04/26/17 04:00 Venous Ioniz Calcium 1.12 mmol/L (1.15-1.35) L 04/26/17 06:39 Phosphorus 2.5 mg/dL (2.7-4.5) L 04/26/17 04:00 Total Bilirubin 1.1 mg/dL (0.3-1.0) H 04/26/17 04:00 Direct Bilirubin 0.6 mg/dL (0.0-0.2) H 04/26/17 04:00 AST 59 Units/L (13-39) H 04/26/17 04:00 ALT 90 Units/L (7-52) H 04/26/17 04:00 Troponin I 4.23 ng/mL (< 0.04) H* 04/21/17 14:25 Serum Total Protein 5.8 g/dL (6.4-8.9) L 04/26/17 04:00 Albumin 2.8 g/dL (3.5-5.7) L 04/26/17 04:00 Albumin/Globulin Ratio 0.9 (1.1-2.2) L 04/26/17 04:00 HDL Cholesterol 27 mg/dL (40-59) L 04/20/17 03:48 Vancomycin Trough 39.7 mcg/mL (10-20) H* 04/21/17 12:50 Staphylococcus sp PCR DETECTED (Not Detect) A 04/20/17 03:48 Staph aureus (PCR) DETECTED (Not Detect) A 04/20/17 03:48 - Microbiology Findings Microbiology Findings: Microbiology, Last 48 Hours 04/24/17 11:15 Sputum Culture - Preliminary Sputum Staphylococcus aureus 04/20/17 10:15 Anaerobic Culture - Final Left Wrist - Abscess No anaerobes were recovered. 04/22/17 12:35 Blood Culture - Preliminary Peripheral Venipuncture No growth. 04/22/17 12:35 Blood Culture - Preliminary Peripheral Venipuncture No growth. - Clinical Findings Intake & Output: Intake & Output 04/25/17 04/26/17 04/26/17 23:59 07:59 15:59 Intake Total 1334.12 / 1334.12 2715.1 / 2715.1 442.7 / 442.7 Output Total 2009 2246 / 2246 410 / 410 Balance -675.88 / -675.88 469.1 / 469.1 32.7 / 32.7 - VTE Documentation of Mechanical Device: Intermittent pneumatic compression device Consult Discharge Plan - Plan Referrals: Kannan Hurley DO [Primary Care Provider] - Juan Lake [Family Provider] - <Dmitri Mckeon S - Last Filed: 04/26/17 22:45> Date of Encounter: 04/26/17 Objective PUL Vital signs: Last Vital Signs Temp 98 F 04/26/17 20:00 Pulse 86 04/26/17 21:58 Resp 27 04/26/17 21:58 BP 137/61 04/26/17 21:58 Pulse Ox 96 04/26/17 21:58 Ventilator Settings Ventilator Settings: Ventilator Settings, Last 8 Hours Ventilator Mode VC+ Ventilator Mode VC+ Ventilator Mode VC+ Ventilator Mode A/C Ventilator Mode A/C Ventilator Mode A/C Ventilator Tidal Volume 450 Setting Ventilator Tidal Volume 450 Setting Ventilator Tidal Volume 450 Setting Ventilator Tidal Volume 450 Setting Ventilator Tidal Volume 450 Setting Ventilator Tidal Volume 450 Setting Ventilator Respiratory Rate 22 Setting Ventilator Respiratory Rate 22 Setting Ventilator Respiratory Rate 22 Setting Ventilator Respiratory Rate 22 Setting Ventilator Respiratory Rate 22 Setting Ventilator Respiratory Rate 22 Setting Actual Respiratory Rate 25 Actual Respiratory Rate 24 Actual Respiratory Rate 28 Actual Respiratory Rate 258 Actual Respiratory Rate 25 Actual Respiratory Rate 25 Positive End Expiratory 8 Pressure Positive End Expiratory 8 Pressure Positive End Expiratory 8 Pressure Positive End Expiratory 8 Pressure Positive End Expiratory 8 Pressure Positive End Expiratory 8 Pressure Peak Inspiratory Airway 20 Pressure Peak Inspiratory Airway 21 Pressure Peak Inspiratory Airway 17 Pressure Peak Inspiratory Airway 24 Pressure Peak Inspiratory Airway 28 Pressure Peak Inspiratory Airway 26 Pressure Results - Laboratory Findings CBC and BMP: 04/26/17 04:00 04/26/17 04:00 ABG ABG pH 7.42 pH Units (7.32-7.45) 04/26/17 04:46 ABG pCO2 41 mmHg (35-45) 04/26/17 04:46 ABG pO2 65 mmHg (85-104) L 04/26/17 04:46 ABG O2 Saturation 93 % (95-98) L 04/26/17 04:46 PT/INR, D-dimer PT 15.1 Seconds (9.4-12.1) H 04/26/17 04:00 D-Dimer 5447 ng/mLFEU (0-500) H 04/21/17 05:41 Abnormal lab findings: Abnormal lab results WBC 14.4 K/mcL (4.3-11.1) H 04/26/17 04:00 RBC 3.32 M/mcL (4.19-5.50) L 04/26/17 04:00 Hgb 9.2 g/dL (12.9-16.9) L 04/26/17 04:00 Hct 29.1 % (37.5-50.1) L 04/26/17 04:00 MCH 27.7 pg (28.0-33.3) L 04/26/17 04:00 Plt Count 134 K/mcL (140-400) L 04/26/17 04:00 Immature Gran % 5.0 % (0-4) H 04/24/17 03:55 Band Neutrophils % 8.0 % (0-4) H 04/26/17 04:00 Metamyelocytes % 2.0 % (0) H 04/26/17 04:00 Myelocytes % 6.0 % (0) H 04/26/17 04:00 Neutrophils # 10.1 K/mcL (1.6-8.9) H 04/26/17 04:00 Monocytes # 1.4 K/mcL (0.0-1.3) H 04/26/17 04:00 Nucleated RBCs/100 WBC 0.1 /100 WBC (0) H 04/26/17 04:00 Reactive Lymphocytes Present (Not Present) A 04/26/17 04:00 Toxic Granulation Present (Not Present) A 04/26/17 04:00 Toxic Vacuolation Present (Not Present) A 04/21/17 14:25 Platelet Estimate Slight Decrease (Normal) L 04/26/17 04:00 Immature Plt Fraction 9.4 % (1.1-6.1) H 04/23/17 03:00 PT 15.1 Seconds (9.4-12.1) H 04/26/17 04:00 Fibrinogen 583 mg/dL (169-393) H 04/21/17 12:50 D-Dimer 5447 ng/mLFEU (0-500) H 04/21/17 05:41 ABG pO2 65 mmHg (85-104) L 04/26/17 04:46 ABG Total CO2 28 mEq/L (20-26) H 04/26/17 04:46 ABG O2 Saturation 93 % (95-98) L 04/26/17 04:46 VBG pH 7.43 pH Units (7.32-7.42) H 04/26/17 21:29 VBG pCO2 39 mmHg (41-51) L 04/26/17 21:29 VBG pO2 205 mmHg (25-50) H 04/26/17 21:29 BUN 33 mg/dL (8-23) H 04/26/17 04:00 Creatinine 2.29 mg/dL (0.70-1.30) H 04/26/17 04:00 Est GFR ( Amer) 35 (> 60) L 04/26/17 04:00 Est GFR (Non-Af Amer) 29 (> 60) L 04/26/17 04:00 Glucose 201 mg/dL (70-105) H 04/26/17 04:00 POC Glucose 174 (58-89) H 04/26/17 01:04 Calculated Osmolality 303 (280-300) H 04/26/17 04:00 Venous Ioniz Calcium 1.54 mmol/L (1.15-1.35) H 04/26/17 21:29 Total Bilirubin 1.1 mg/dL (0.3-1.0) H 04/26/17 04:00 Direct Bilirubin 0.6 mg/dL (0.0-0.2) H 04/26/17 04:00 AST 59 Units/L (13-39) H 04/26/17 04:00 ALT 90 Units/L (7-52) H 04/26/17 04:00 Troponin I 4.23 ng/mL (< 0.04) H* 04/21/17 14:25 Serum Total Protein 5.8 g/dL (6.4-8.9) L 04/26/17 04:00 Albumin 2.8 g/dL (3.5-5.7) L 04/26/17 04:00 Albumin/Globulin Ratio 0.9 (1.1-2.2) L 04/26/17 04:00 HDL Cholesterol 27 mg/dL (40-59) L 04/20/17 03:48 Vancomycin Trough 39.7 mcg/mL (10-20) H* 04/21/17 12:50 Staphylococcus sp PCR DETECTED (Not Detect) A 04/20/17 03:48 Staph aureus (PCR) DETECTED (Not Detect) A 04/20/17 03:48 - Microbiology Findings Microbiology Findings: Microbiology, Last 48 Hours 04/24/17 11:15 Sputum Culture - Final Sputum Staphylococcus aureus 04/20/17 10:15 Anaerobic Culture - Final Left Wrist - Abscess No anaerobes were recovered. - Clinical Findings Intake & Output: Intake & Output 04/26/17 04/26/17 04/26/17 07:59 15:59 23:59 Intake Total 2715.1 / 2715.1 2202.9 / 2202.9 1650.5 / 1650.5 Output Total 2246 / 2246 1670 / 1670 1641 / 1641 Balance 469.1 / 469.1 532.9 / 532.9 9.5 / 9.5 - Attending Attestation - Attending Attestation I saw and evaluated this patient and my medical decision-making was reviewed with the Resident Physician. I agree with the documented findings, disposition and treatment plan as described except to the extent set forth below. We independently had [id number] contact with the patient I spent 45 minutes of Critical Care time with this patient. It involved decision making of high complexity to assess, manipulate, and support vital organ system failure and/or to prevent further life threatening deterioration of the patient's condition. The time involved in the performance of separately reportable procedures was not counted toward critical care time. Patient seen and examined at bedside Labs, radiology, chart personally reviewed. Management was reviewed during multidisciplinary critical care rounds. CONE PICKER:Patient is intubated now he is off paralysis started to follow commands will transition from versed to precedex will add antipsychotics to the regimen . Pulm: Patient hypoxic respiratory failure requiring high PEEP therapy which helps to convert the shunt fraction into V/Q mismatch brought down the FIO2 to 60% to keep the PEEP at 12 once the FIO2 is brought down to 40% will bring down the PEEP patient is currently paralyzed because of ventilator dyschrony when oxygenation stable of PEEP will stop the muscle relaxant The V/Q mismatch is due to fluid overload with multifocal pneumonia vs Septic embolic Try to come down the FIO2 of 40% with PEEP of 12 if he is tolerating the ventilator settings then will stop paralysis and see how he does . 04/25 Took the patient off paralysis patient has good ventilator synchrony to bring FIO2 first then bring down on the PEEP fluid removal as tolerated 04/26 Today patient was breath stacking change him to VC plus tolerating well titrating down the PEEP P/F ratio improving slowly Cards:. Patient has some systolic heart failure , CAD with antiplatelet therapy patient doesnt have contraindications for anti-platelet therapy for now TTE didnt show any vegetations if next blood cultures positive will need LYDIA , blood culture which was sent 04/22 is in process . Patient is septic shock titrating down on the vasopressors . 04/24 titrating down the vasopressors 04/25 Patient is off vasopressors . 04/26 Blood pressure is labile went on vasopressors again FEN-GI:Feeding as per nutrition recs Renal: NANCY needing CCVHD to run even ID: To continue the broad spectrum antibiotics will start descalating soon the latest blood cultures were negative Heme/Onc:Labs reviewed with some thrombocytopenia Endo: Glucose Monitored Integ/MSK: Skin Care per routine ICU Nursing Protocol to prevent ulcers. Lines: All lines examined without evidence of infection : Dispo: Critically ill with high risk of cardio respiratory failure CODE:Full Code
[2017-04-26] MEDS: Dexmedetomidine HCl 400 MCG/100 ML MLS IVC SCH ×2 (09:33→15:27)
[2017-04-26] MEDS ORDERED: *HR* Heparin 5,000 UNIT/ML VIAL ONE (10:38)
--- NOTE | 2017-04-26 10:39 | Nephrology Progress Note ---
Date of Encounter: 04/26/17 Time of Encounter: 09:20 - Assessment and Plan (1) NANCY (acute kidney injury) Current Visit: Yes Status: Acute Recommend continuing Nahomy 4K/2.5Ca at 1000 dialysate and 1000 replacement fluid with Citrate/Calcium for regional anticoagulation to help support the filter. Well balanced electrolytes. His SCr appears to be improving; however, this is mostly likely simply d/t the clearance of the Nahomy since his UOP remains oliguric. Goal UF for a net even volume status, but if the pt's MAP is dropping then to dec UF. Discussed with the ICU team. Cont Citrate as this is effectively working to maintain the Nahomy filter life excellently. Last Sunday, he required emergently to start CRRT, at which point I placed the temporary right femoral The the effluent dose is <25, he is now tolerating the Nahomy when before he did not d/t hypotension. Renal dosing while on Nahomy: assume an effect GFR of near 30. Continue to follow a renal protective strategy and strict I/Os and daily weights. My colleague Dr. Young will be on-call tomorrow. (2) Hyponatremia Current Visit: Yes Status: Acute Improved. (3) Abdominal compartment syndrome Current Visit: Yes Status: Acute Appears resolved. Qualifiers: Compartment syndrome type: non-traumatic Qualified Code(s): M79.A3 - Nontraumatic compartment syndrome of abdomen (4) Septic shock Current Visit: Yes Status: Acute ICU following. Remains on pressors, so I'll be gentle with UF. Subjective Principal diagnosis: Sepsis/Septic Shock Interval history: Pt was s/e and remains intubated thus limiting subjective history. I discussed CRRT with the TOOL SMITH: the Nahomy filter remains intact since the prior evening; tolerating fluid removal. No new major events. His paralytic Rx was held and he' s now having more movements. Objective - Vital Signs Vital signs: Vital Signs Temp Pulse Resp BP Pulse Ox 04/26/17 10:00 87 22 111/62 100 04/26/17 09:50 23 106/53 100 04/26/17 09:00 96 25 115/64 100 04/26/17 08:00 94 23 89/54 100 04/26/17 07:47 95 04/26/17 07:41 23 86/51 100 04/26/17 07:00 99 24 87/52 100 04/26/17 06:00 99 24 79/47 100 04/26/17 05:08 24 107/59 98 04/26/17 05:00 101 25 101/54 98 04/26/17 04:00 98.3 F 107 25 98/59 98 18 03:50 24 94/53 98 04/26/17 03:00 107 22 91/54 97 04/26/17 02:00 102 23 104/55 93 04/26/17 01:02 26 79/46 93 04/26/17 01:00 101 26 103/55 93 04/26/17 00:00 97.8 F 101 25 88/47 94 04/25/17 23:00 101 22 98/53 95 04/25/17 22:00 89 25 92/46 94 04/25/17 21:25 22 90/50 97 04/25/17 21:00 90 26 86/51 97 04/25/17 20:00 97.6 F 87 24 108/59 98 04/25/17 19:52 25 97/55 97 04/25/17 19:00 86 23 94/49 97 04/25/17 18:00 84 24 100/54 98 04/25/17 17:47 25 98/53 99 04/25/17 17:00 84 25 92/50 98 04/25/17 16:00 97.7 F 79 22 94/53 100 04/25/17 15:35 23 111/69 100 04/25/17 15:00 84 22 92/56 99 04/25/17 14:00 84 23 106/61 98 04/25/17 13:19 22 84/50 94 04/25/17 13:00 84 23 125/64 94 04/25/17 12:00 97.6 F 81 24 121/61 96 04/25/17 11:58 22 104/63 99 04/25/17 11:54 77 04/25/17 11:00 66 22 105/54 95 Intake and Output 04/25/17 04/26/17 04/26/17 23:59 07:59 15:59 Intake Total 1334.12 / 1334.12 2715.1 / 2715.1 1097.1 / 1097.1 Output Total 2009 / 2246 1043 / 1043 Balance -675.88 / -675.88 469.1 / 469.1 54.1 / 54.1 Intake: IV Fluids 919.12 / 919.12 2368.1 / 2368.1 921.1 / 921.1 Calcium Chloride 4,000 MG In 0. 557 / 557 1890 / 1890 589 / 589 9 % Sodium Chloride 1,000 ML @ 40 mls/hr CRRT CONT CECILIO Rx#: [id number] PrismaSATE BGK 4/2.5 5,000 ML @ 0 / 0 0 / 0 1500 mls/hr CRRT CONT CECILIO Rx#: [id number] FentaNYL (PF) 2,500 MCG In 50 / 50 33.4 / 33.4 Empty Bag 1 Each @ 50 MCG/HR 1 mls/hr IVC CONT CECILIO Rx#: [id number] HumuLIN R 100 UNIT In 0.9 % 20.12 / 20.12 28.1 / 28.1 14.6 / 14.6 Sodium Chloride 100 ML @ 12 UNIT/HR 12.12 mls/hr IVC CONT CECILIO Rx#:[id number] Versed 50 MG In 0.9 % Sodium 42 / 42 100 / 100 84.1 / 84.1 Chloride 90 ML @ 2 MG/HR 4 mls/ hr IVC CONT CECILIO Rx#:[id number] Nafcillin 2,000 MG In 0.9 % 200 / 200 200 / 200 100 / 100 Sodium Chloride (Mini-Bag +) 100 ML @ 200 mls/hr IVPB Q4HR CECILIO Rx#:[id number] Zosyn 3.375 GM In 0.9 % Sodium 100 / 100 100 / 100 100 / 100 Chloride (Mini-Bag +) 100 ML @ 25 mls/hr IVPB Q8H CECILIO Rx#: [id number] Tube Feeding 255 / 255 347 / 347 176 / 176 Free Water 80 / 80 Free Water Intake Amount 80 / 80 Output: Nahomy 1994 2236 / 223 1043 / 1043 Catheter 10 / 0 / 0 Other: Stool Size Smear Stool Color Brown Blood Glucose* 137 165 149 - General Appearance General appearance: Present: sedated on ventilator, intubated EENT: Present: ATNC, mucous membranes moist Neck: Present: no carotid bruit, supple Respiratory: Present: clear Cardiology: Present: no edema, regular rate, regular rhythm, normal S1, normal S2 Dialysis Vascular Access: Venous Catheter (Right femoral temporary HD catheter was C/D/I.) Gastrointestinal: Present: normoactive bowel sounds, no tenderness, no guarding , obese Integumentary: Present: warm and dry Neurologic: Present: no asterixis Musculoskeletal: Present: no erythema, no cyanosis - Lab 04/26/17 04:00 04/26/17 04:00 Most recent lab results ABG pH 7.42 pH Units (7.32-7.45) 04/26/17 04:46 ABG pCO2 41 mmHg (35-45) 04/26/17 04:46 ABG pO2 65 mmHg (85-104) L 04/26/17 04:46 ABG HCO3 27 mEq/L (21-27) 04/26/17 04:46 ABG O2 Saturation 93 % (95-98) L 04/26/17 04:46 Calcium 10.2 mg/dL (8.6-10.3) 04/26/17 04:00 Phosphorus 2.5 mg/dL (2.7-4.5) L 04/26/17 04:00 Magnesium 2.1 mg/dL (1.6-2.6) 04/26/17 04:00 - VTE Documentation of Mechanical Device: Intermittent pneumatic compression device Consult Discharge Plan - Plan Referrals: Kannan Hurley DO [Primary Care Provider] - Juan Lake [Family Provider] -
[2017-04-26] MEDS: *HR* Heparin 5,000 UNIT/ML VIAL IV PRN (11:36)
[2017-04-26 13:23] LABS: VBG Ionized Calcium 1.59 mmol/L (1.15-1.35)
[2017-04-26 15:22] LABS: VBG Ionized Calcium 1.55 mmol/L (1.15-1.35)
[2017-04-26] MEDS: EPINEPHrine 1 MG in 0.9 % Sodium Chloride 250 ML IVC SCH (15:49)
[2017-04-26] MEDS: VECURONIUM IVC SCH (17:24)
[2017-04-26] MEDS: SODIUM CHLORIDE IVC SCH (17:24)
[2017-04-26 17:36] LABS: VBG Ionized Calcium 1.51 mmol/L (1.15-1.35)
[2017-04-26 19:12] LABS: VBG HCO3 26 mEq/L (21-27); VBG Ionized Calcium 1.49 mmol/L (1.15-1.35); VBG PCO2 39 mmHg (41-51); VBG PH 7.42 pH Units (7.32-7.42); VBG PO2 175 mmHg (25-50)
[2017-04-26] MEDS ORDERED: *HR* Atropine Sulfate 1 MG/10 ML SYRINGE ONE (20:54)
[2017-04-26] MEDS: Insulin Human Regular 100 UNIT in 0.9 % Sodium Chloride 100 ML IVC SCH (21:21)
[2017-04-26] MEDS: Norepinephrine 16 MG in D5% in Water 500 ML IVC SCH (21:25)
[2017-04-26 21:38] LABS: VBG HCO3 26 mEq/L (21-27); VBG Ionized Calcium 1.54 mmol/L (1.15-1.35); VBG PCO2 39 mmHg (41-51); VBG PH 7.43 pH Units (7.32-7.42); VBG PO2 205 mmHg (25-50)
[2017-04-26 23:51] LABS: VBG Ionized Calcium 1.21 mmol/L (1.15-1.35)
[2017-04-27] MEDS: Nafcillin 2,000 MG in 0.9 % Sodium Chloride Mini Bag 100 ML IVPB SCH ×7 (00:03→23:41)
[2017-04-27] MEDS: Lacri-Lube 3.5 GM TUBE BOTH EYES SCH ×7 (00:04→23:41)
[2017-04-27] MEDS: Insulin Human Regular 100 UNIT in 0.9 % Sodium Chloride 100 ML IVC SCH (00:15)
[2017-04-27] MEDS: Dexmedetomidine HCl 400 MCG/100 ML MLS IVC SCH ×2 (00:55→23:41)
[2017-04-27] MEDS: FentaNYL (PF) 2,500 MCG in EMPTY BAG 1 EACH IVC SCH ×3 (02:40→20:53)
[2017-04-27] MEDS ORDERED: Acetaminophen 325 MG TABLET PO ONE (03:16)
[2017-04-27] MEDS: PrismaSATE BGK 4/2.5 5,000 ML CRRT SCH ×10 (03:30→23:42)
[2017-04-27] MEDS: Piperacillin/Tazobactam 3.375 GM in 0.9 % Sodium Chloride Mini Bag 100 ML IVPB SCH ×3 (04:22→20:06)
[2017-04-27 04:32] LABS: Albumin 2.5 g/dL (3.5-5.7); Albumin/Globulin Ratio 0.8 (1.1-2.2); Bilirubin,Direct 0.3 mg/dL (0.0-0.2); Bilirubin,Indirect 0.5 mg/dL (0.0-1.2); Bilirubin,Total 0.8 mg/dL (0.3-1.0); Calcium 11.1 mg/dL (8.6-10.3); Potassium 3.9 mEq/L (3.5-5.1); Total Protein 5.5 g/dL (6.4-8.9)
[2017-04-27 04:49] LABS: ABG Base Excess 1 mEq/L (-2 to 3); ABG HCO3 26 mEq/L (21-27); ABG Oxygen Saturation 90 % (95-98); ABG PCO2 38 mmHg (35-45); ABG PH 7.44 pH Units (7.32-7.45); ABG PO2 57 mmHg (85-104); ABG TCO2 27 mEq/L (20-26); Blood Gas Modality PRVC; Blood Gas PEEP 8 cm H2O; Blood Gas Respiration Rate 22; Blood Gas VT 450 cc
[2017-04-27] MEDS: Pantoprazole 40 MG VIAL IVP SCH ×2 (06:12→16:39)
[2017-04-27 06:31] LABS: VBG HCO3 27 mEq/L (21-27); VBG PCO2 51 mmHg (41-51); VBG PH 7.33 pH Units (7.32-7.42); VBG PO2 67 mmHg (25-50)
[2017-04-27] MEDS: Chlorhexidine Rinse 15 ML MOUTHWASH MM SCH ×2 (08:21→20:06)
[2017-04-27] MEDS: Aspirin 81 MG TAB.CHEW PO SCH (08:21)
[2017-04-27] MEDS: *HR* Ticagrelor 90 MG TABLET PO SCH ×2 (08:21→20:06)
[2017-04-27] MEDS: Calcium Chloride 4,000 MG in 0.9 % Sodium Chloride 1,000 ML CRRT SCH ×2 (08:27→18:20)
[2017-04-27 09:53] LABS: Basophils # 0.2 K/mcL (0.0-0.2); Hematocrit 25.9 % (37.5-50.1); Hemoglobin 8.4 g/dL (12.9-16.9); Mean Corpuscular HGB Conc 32.4 g/dL (31.6-35.5); Mean Corpuscular Hemoglobin 27.9 pg (28.0-33.3); Mean Platelet Volume 9.8 fL (9.4-12.4); Nucleated Red Blood Cells 0.2 /100 WBC (0); Platelet Count 179 K/mcL (140-400); Red Blood Count 3.01 M/mcL (4.19-5.50); Red Cell Distribution Width 14.2 % (11.5-14.5)
[2017-04-27 10:07] LABS: Calcium 10.9 mg/dL (8.6-10.3); Potassium 3.9 mEq/L (3.5-5.1)
[2017-04-27 10:49] LABS: Eosinophils # 0.6 K/mcL (0.0-0.6); Lymphocytes # 2.3 K/mcL (0.6-4.6); Monocytes # 0.8 K/mcL (0.0-1.3); Neutrophils # 14.1 K/mcL (1.6-8.9)
[2017-04-27 10:51] LABS: Platelet Estimate Normal (Normal)
[2017-04-27 10:52] LABS: Toxic Granulation Present (Not Present)
[2017-04-27] MEDS ORDERED: D5% in Water 1,000 ML IVC PRN (11:21)
[2017-04-27] MEDS ORDERED: *HR* Dextrose 50 % in Water (Syg) 50 ML SYRINGE IVP PRN (11:21)
[2017-04-27] MEDS ORDERED: Dextrose Gel 15 GM/37.5 ML TUBE PO PRN ×2 (11:21)
[2017-04-27] MEDS: Insulin DETEMIR 100 UNIT/ML X5UNITS SQ SCH (12:00)
[2017-04-27] MEDS: Insulin LISPRO 300 UNITS/3 ML VIAL SQ SCH ×4 (12:00→23:41)
--- NOTE | 2017-04-27 12:30 | Pulmonology Progress Note ---
<Ciaran Cristobal Sy - Last Filed: 04/27/17 12:39> Date of Encounter: 04/27/17 Time of Encounter: 08:00 Assessment and Plan (1) Septic shock Current Visit: Yes Status: Acute Secondary to Staph aureus bacteremia. Lactic acidosis resolved and stable. Requiring hemodynamic support with norepinephrine, titrated to MAP >65. Wean as tolerated. Patient has increasing leukocytosis and was febrile overnight. Repeat culture sputum, continue abx. Empiric antibiotics: Nafcillin day 4 Zosyn day 3 (plan discontinue Sunday) Consider broadening pending blood and sputum cultures. Discontinued: Meropenem after 3days Microbiology: Sputum culture 04/27 pending Blood culture peripheral 04/27 pending Sputum culture 04/24 light colonies staph aureus Blood culture peripheral 04/22 (-) @48hr Blood culture peripheral 04/20 (+) MSSA Wound culture Lt wrist 04/20 (+) MSSA Anaerobic culture Lt wrist 04/20 (-) prelim. 5d incubation pending Neurosedatives: Failed wean from versed to precedex secondary to bradycardia. Continue versed gtt Seroquel 50mg BID Analgesia: Fentanyl gtt Ventilator: Wean PEEP and FiO2 as tolerated. Pressors: Norepinephrine wean to MAP > 65. Dopamine weaned off. Random cortisol appropriate; no need for steroids at this time. (2) Acute respiratory failure with hypoxia Current Visit: Yes Status: Acute Secondary to hypoxia in the setting of septic shock. Lung protective measures. Will follow with ABG and titrate vent settings accordingly. Antibiotics as above. (3) Cardiac arrest Current Visit: Yes Status: Resolved Cardiac arrest 04/21. PEA (6 rounds CPR, 4 rounds epi, 2A bicarb) to Sinus tachycardia to SVT (cardiovert x1 at 100J) to NSR. Cardiology consulted; suspect metabolic cause. (4) Coronary artery disease Current Visit: Yes Status: Chronic LHC 04/16/17 with RAMÍREZ to prox circ. LVEF 55% with normal contractility. Hx CABC x4 in 2012. Hx DM, HTN, HLD, CAD Continue lipitor, aspirin, brilinta, norvasc. Qualifiers: Coronary Disease-Associated Artery/Lesion type: [place] artery [place] vs. transplanted heart: [place] heart Associated angina: with other forms of angina Qualified Code(s): I25.118 - Atherosclerotic heart disease of [place] coronary artery with other forms of angina pectoris (5) Hematoma Current Visit: Yes Status: Acute Right rectus sheath hematoma per CTA abdomen pelvis 04/20 Negative workup for femoral artery pseudoaneursym. (arterial imaging) Per general surgery; hematoma without active bleed, no indication for surgical intervention at this time. Gen surg sign-off 04/24. (6) Stage 3 acute kidney injury Current Visit: Yes Status: Acute Acute Kidney injury likely secondary to septic shock On MARTIN Renal function improving. Nephrology following. Subjective Principal diagnosis: Sepsis/Septic Shock Interval history: Hospital day 7/ Post cardiac arrest day 6 While on precedex, patient had a bradycardic episode overnight into the 30's. Resolved with discontinuation of precedex. As such, he is back on Versed. Patient became febrile overnight with increasing leukocytosis. Repeat blood cultures and sputum cultures collected with results pending. Will hold on broadening antibiotic coverage pending those results. Neuro: Patient remains sedated on versed. Analgesia with fentanyl. Completely weaned from paralysis. Seroquel started 04/26 at 50mg BID. CV: Required low dose levophed overnight. Continuing to wean pressors. Remains sinus rhythm on monitor. Pulm: Patient's oxygenation slowly improving with lung protective settings. PEEP remains in the 8 range. Continue weaning vent settings following lung protective measures as tolerated by hypoxia and hypotension. GI: Tube feeds, unchanged. Renal: Cumulative fluid -700mL. On MARTIN. Goal net neutral in I & O today. Heme/ID: MSSA bacteremia and pneumonia. Continue nafcillin. Discontinue zosyn Sunday. Repeat blood and sputum cultures pending. Skin: Patient does not currently tolerate turning. Objective PUL Vital signs: Last Vital Signs Temp 98.6 F 04/27/17 12:00 Pulse 100 04/27/17 12:00 Resp 25 04/27/17 12:00 BP 130/61 04/27/17 12:00 Pulse Ox 98 04/27/17 12:00 General appearance: no acute distress Eyes: nonicteric ENT: oropharynx moist Neck: supple Effort: normal Auscultation: bilateral: clear, diminished breath sounds Cardiovascular: regular rate and rhythm Gastrointestinal: normoactive bowel sounds, soft, non-tender, non-distended Integumentary: normal Extremities: no cyanosis, no edema, no clubbing, pink and warm, pulses normal, no ischemia or petechiae Musculoskeletal: no deformities non-focal exam, pupils equal and round mood appropriate Ventilator Settings Ventilator Settings: Ventilator Settings, Last 8 Hours Ventilator Mode VC+ Ventilator Mode VC+ Ventilator Mode VC+ Ventilator Mode VC+ Ventilator Mode VC+ Ventilator Mode VC+ Ventilator Mode VC+ Ventilator Mode VC+ Ventilator Mode VC+ Ventilator Mode VC+ Ventilator Mode VC+ Ventilator Tidal Volume 450 Setting Ventilator Tidal Volume 450 Setting Ventilator Tidal Volume 450 Setting Ventilator Tidal Volume 450 Setting Ventilator Tidal Volume 450 Setting Ventilator Tidal Volume 450 Setting Ventilator Tidal Volume 450 Setting Ventilator Tidal Volume 450 Setting Ventilator Tidal Volume 450 Setting Ventilator Tidal Volume 450 Setting Ventilator Tidal Volume 450 Setting Ventilator Respiratory Rate 22 Setting Ventilator Respiratory Rate 22 Setting Ventilator Respiratory Rate 22 Setting Ventilator Respiratory Rate 22 Setting Ventilator Respiratory Rate 22 Setting Ventilator Respiratory Rate 22 Setting Ventilator Respiratory Rate 22 Setting Ventilator Respiratory Rate 22 Setting Ventilator Respiratory Rate 22 Setting Ventilator Respiratory Rate 22 Setting Ventilator Respiratory Rate 22 Setting Actual Respiratory Rate 23 Actual Respiratory Rate 23 Actual Respiratory Rate 23 Actual Respiratory Rate 24 Actual Respiratory Rate 24 Actual Respiratory Rate 24 Actual Respiratory Rate 24 Actual Respiratory Rate 26 Actual Respiratory Rate 30 Actual Respiratory Rate 29 Positive End Expiratory 8 Pressure Positive End Expiratory 8 Pressure Positive End Expiratory 8 Pressure Positive End Expiratory 8 Pressure Positive End Expiratory 8 Pressure Positive End Expiratory 8 Pressure Positive End Expiratory 8 Pressure Positive End Expiratory 8 Pressure Positive End Expiratory 8 Pressure Positive End Expiratory 8 Pressure Positive End Expiratory 8 Pressure Peak Inspiratory Airway 22 Pressure Peak Inspiratory Airway 22 Pressure Peak Inspiratory Airway 22 Pressure Peak Inspiratory Airway 23 Pressure Peak Inspiratory Airway 23 Pressure Peak Inspiratory Airway 23 Pressure Peak Inspiratory Airway 23 Pressure Peak Inspiratory Airway 22 Pressure Peak Inspiratory Airway 21 Pressure Peak Inspiratory Airway 20 Pressure Results - Laboratory Findings CBC and BMP: 04/27/17 09:30 04/27/17 09:30 ABG ABG pH 7.44 pH Units (7.32-7.45) 04/27/17 04:40 ABG pCO2 38 mmHg (35-45) 04/27/17 04:40 ABG pO2 57 mmHg (85-104) L 04/27/17 04:40 ABG O2 Saturation 90 % (95-98) L 04/27/17 04:40 PT/INR, D-dimer PT 15.1 Seconds (9.4-12.1) H 04/26/17 04:00 D-Dimer 5447 ng/mLFEU (0-500) H 04/21/17 05:41 Abnormal lab findings: Abnormal lab results WBC 21.1 K/mcL (4.3-11.1) H 04/27/17 09:30 RBC 3.01 M/mcL (4.19-5.50) L 04/27/17 09:30 Hgb 8.4 g/dL (12.9-16.9) L 04/27/17 09:30 Hct 25.9 % (37.5-50.1) L 04/27/17 09:30 MCH 27.9 pg (28.0-33.3) L 04/27/17 09:30 Immature Gran % 5.0 % (0-4) H 04/24/17 03:55 Band Neutrophils % 10.0 % (0-4) H 04/27/17 09:30 Metamyelocytes % 6.0 % (0) H 04/27/17 09:30 Myelocytes % 5.0 % (0) H 04/27/17 09:30 Promyelocytes % 2.0 % (0) H 04/27/17 09:30 Blast Cells % 1.0 % (0) H 04/27/17 09:30 Neutrophils # 14.1 K/mcL (1.6-8.9) H 04/27/17 09:30 Nucleated RBCs/100 WBC 0.2 /100 WBC (0) H 04/27/17 09:30 Reactive Lymphocytes Present (Not Present) A 04/26/17 04:00 Toxic Granulation Present (Not Present) A 04/27/17 09:30 Toxic Vacuolation Present (Not Present) A 04/21/17 14:25 Immature Plt Fraction 9.4 % (1.1-6.1) H 04/23/17 03:00 PT 15.1 Seconds (9.4-12.1) H 04/26/17 04:00 Fibrinogen 583 mg/dL (169-393) H 04/21/17 12:50 D-Dimer 5447 ng/mLFEU (0-500) H 04/21/17 05:41 ABG pO2 57 mmHg (85-104) L 04/27/17 04:40 ABG Total CO2 27 mEq/L (20-26) H 04/27/17 04:40 ABG O2 Saturation 90 % (95-98) L 04/27/17 04:40 VBG pO2 67 mmHg (25-50) H 04/27/17 06:26 Chloride 110 mEq/L (98-107) H 04/27/17 09:30 BUN 51 mg/dL (8-23) H 04/27/17 09:30 Creatinine 3.27 mg/dL (0.70-1.30) H 04/27/17 09:30 Est GFR ( Amer) 23 (> 60) L 04/27/17 09:30 Est GFR (Non-Af Amer) 19 (> 60) L 04/27/17 09:30 Glucose 68 mg/dL (70-105) L 04/27/17 09:30 POC Glucose 137 (58-89) H 04/27/17 04:04 Calculated Osmolality 302 (280-300) H 04/27/17 09:30 Calcium 10.9 mg/dL (8.6-10.3) H 04/27/17 09:30 Direct Bilirubin 0.3 mg/dL (0.0-0.2) H 04/27/17 03:49 AST 44 Units/L (13-39) H 04/27/17 03:49 ALT 63 Units/L (7-52) H 04/27/17 03:49 Troponin I 4.23 ng/mL (< 0.04) H* 04/21/17 14:25 Serum Total Protein 5.5 g/dL (6.4-8.9) L 04/27/17 03:49 Albumin 2.5 g/dL (3.5-5.7) L 04/27/17 03:49 Albumin/Globulin Ratio 0.8 (1.1-2.2) L 04/27/17 03:49 HDL Cholesterol 27 mg/dL (40-59) L 04/20/17 03:48 Vancomycin Trough 39.7 mcg/mL (10-20) H* 04/21/17 12:50 Staphylococcus sp PCR DETECTED (Not Detect) A 04/20/17 03:48 Staph aureus (PCR) DETECTED (Not Detect) A 04/20/17 03:48 - Microbiology Findings Microbiology Findings: Microbiology, Last 48 Hours 04/24/17 11:15 Sputum Culture - Final Sputum Staphylococcus aureus 04/20/17 10:15 Anaerobic Culture - Final Left Wrist - Abscess No anaerobes were recovered. - Clinical Findings Intake & Output: Intake & Output 04/26/17 04/27/17 04/27/17 23:59 07:59 15:59 Intake Total 1913.1 / 1913.1 1308.0 / 1308.0 1415 / 1415 Output Total 1926 / 1926 2218 / 2218 937 / 937 Balance -12.9 / -12.9 -910.0 / -910.0 478 / 478 - VTE Documentation of Mechanical Device: Intermittent pneumatic compression device Consult Discharge Plan - Plan Referrals: Kannan Hurley DO [Primary Care Provider] - Juan Lake [Family Provider] - <Dmitri Mckeon S - Last Filed: 04/27/17 22:59> Date of Encounter: 04/27/17 Objective PUL Vital signs: Last Vital Signs Temp 98.7 F 04/27/17 20:00 Pulse 112 04/27/17 22:00 Resp 28 04/27/17 22:00 BP 167/93 04/27/17 22:00 Pulse Ox 94 04/27/17 22:00 Ventilator Settings Ventilator Settings: Ventilator Settings, Last 8 Hours Ventilator Mode VC+ Ventilator Mode VC+ Ventilator Mode VC+ Ventilator Mode VC+ Ventilator Mode VC+ Ventilator Mode VC+ Ventilator Mode VC+ Ventilator Mode VC+ Ventilator Tidal Volume 450 Setting Ventilator Tidal Volume 450 Setting Ventilator Tidal Volume 450 Setting Ventilator Tidal Volume 450 Setting Ventilator Tidal Volume 450 Setting Ventilator Tidal Volume 450 Setting Ventilator Tidal Volume 450 Setting Ventilator Tidal Volume 450 Setting Ventilator Respiratory Rate 22 Setting Ventilator Respiratory Rate 22 Setting Ventilator Respiratory Rate 22 Setting Ventilator Respiratory Rate 22 Setting Ventilator Respiratory Rate 22 Setting Ventilator Respiratory Rate 22 Setting Ventilator Respiratory Rate 22 Setting Ventilator Respiratory Rate 22 Setting Actual Respiratory Rate 29 Actual Respiratory Rate 22 Actual Respiratory Rate 25 Actual Respiratory Rate 24 Actual Respiratory Rate 24 Actual Respiratory Rate 30 Actual Respiratory Rate 30 Actual Respiratory Rate 30 Positive End Expiratory 5 Pressure Positive End Expiratory 5 Pressure Positive End Expiratory 5 Pressure Positive End Expiratory 5 Pressure Positive End Expiratory 5 Pressure Positive End Expiratory 5 Pressure Positive End Expiratory 5 Pressure Positive End Expiratory 5 Pressure Peak Inspiratory Airway 11 Pressure Peak Inspiratory Airway 21 Pressure Peak Inspiratory Airway 24 Pressure Peak Inspiratory Airway 24 Pressure Peak Inspiratory Airway 24 Pressure Peak Inspiratory Airway 18 Pressure Peak Inspiratory Airway 18 Pressure Peak Inspiratory Airway 18 Pressure Results - Laboratory Findings CBC and BMP: 04/27/17 09:30 04/27/17 09:30 ABG ABG pH 7.44 pH Units (7.32-7.45) 04/27/17 04:40 ABG pCO2 38 mmHg (35-45) 04/27/17 04:40 ABG pO2 57 mmHg (85-104) L 04/27/17 04:40 ABG O2 Saturation 90 % (95-98) L 04/27/17 04:40 PT/INR, D-dimer PT 15.1 Seconds (9.4-12.1) H 04/26/17 04:00 D-Dimer 5447 ng/mLFEU (0-500) H 04/21/17 05:41 Abnormal lab findings: Abnormal lab results WBC 21.1 K/mcL (4.3-11.1) H 04/27/17 09:30 RBC 3.01 M/mcL (4.19-5.50) L 04/27/17 09:30 Hgb 8.4 g/dL (12.9-16.9) L 04/27/17 09:30 Hct 25.9 % (37.5-50.1) L 04/27/17 09:30 MCH 27.9 pg (28.0-33.3) L 04/27/17 09:30 Immature Gran % 5.0 % (0-4) H 04/24/17 03:55 Band Neutrophils % 10.0 % (0-4) H 04/27/17 09:30 Metamyelocytes % 6.0 % (0) H 04/27/17 09:30 Myelocytes % 5.0 % (0) H 04/27/17 09:30 Promyelocytes % 2.0 % (0) H 04/27/17 09:30 Blast Cells % 1.0 % (0) H 04/27/17 09:30 Neutrophils # 14.1 K/mcL (1.6-8.9) H 04/27/17 09:30 Nucleated RBCs/100 WBC 0.2 /100 WBC (0) H 04/27/17 09:30 Reactive Lymphocytes Present (Not Present) A 04/26/17 04:00 Toxic Granulation Present (Not Present) A 04/27/17 09:30 Toxic Vacuolation Present (Not Present) A 04/21/17 14:25 Immature Plt Fraction 9.4 % (1.1-6.1) H 04/23/17 03:00 PT 15.1 Seconds (9.4-12.1) H 04/26/17 04:00 Fibrinogen 583 mg/dL (169-393) H 04/21/17 12:50 D-Dimer 5447 ng/mLFEU (0-500) H 04/21/17 05:41 ABG pO2 57 mmHg (85-104) L 04/27/17 04:40 ABG Total CO2 27 mEq/L (20-26) H 04/27/17 04:40 ABG O2 Saturation 90 % (95-98) L 04/27/17 04:40 VBG pO2 67 mmHg (25-50) H 04/27/17 06:26 Chloride 110 mEq/L (98-107) H 04/27/17 09:30 BUN 51 mg/dL (8-23) H 04/27/17 09:30 Creatinine 3.27 mg/dL (0.70-1.30) H 04/27/17 09:30 Est GFR ( Amer) 23 (> 60) L 04/27/17 09:30 Est GFR (Non-Af Amer) 19 (> 60) L 04/27/17 09:30 Glucose 68 mg/dL (70-105) L 04/27/17 09:30 POC Glucose 137 (58-89) H 04/27/17 04:04 Calculated Osmolality 302 (280-300) H 04/27/17 09:30 Calcium 10.9 mg/dL (8.6-10.3) H 04/27/17 09:30 Venous Ioniz Calcium 1.12 mmol/L (1.15-1.35) L 04/27/17 20:07 Direct Bilirubin 0.3 mg/dL (0.0-0.2) H 04/27/17 03:49 AST 44 Units/L (13-39) H 04/27/17 03:49 ALT 63 Units/L (7-52) H 04/27/17 03:49 Troponin I 4.23 ng/mL (< 0.04) H* 04/21/17 14:25 Serum Total Protein 5.5 g/dL (6.4-8.9) L 04/27/17 03:49 Albumin 2.5 g/dL (3.5-5.7) L 04/27/17 03:49 Albumin/Globulin Ratio 0.8 (1.1-2.2) L 04/27/17 03:49 HDL Cholesterol 27 mg/dL (40-59) L 04/20/17 03:48 Vancomycin Trough 39.7 mcg/mL (10-20) H* 04/21/17 12:50 Staphylococcus sp PCR DETECTED (Not Detect) A 04/20/17 03:48 Staph aureus (PCR) DETECTED (Not Detect) A 04/20/17 03:48 - Microbiology Findings Microbiology Findings: Microbiology, Last 48 Hours 04/27/17 13:52 Sputum Culture - Preliminary Sputum 04/24/17 11:15 Sputum Culture - Final Sputum Staphylococcus aureus - Clinical Findings Intake & Output: Intake & Output 04/27/17 04/27/17 04/27/17 07:59 15:59 23:59 Intake Total 1308.0 / 1308.0 1515 / 1515 1590 / 1590 Output Total 2218 / 2218 1686 / 1686 1760 / 1760 Balance -910.0 / -910.0 -171 / -171 -170 / -170 - Attending Attestation - Attending Attestation I saw and evaluated this patient and my medical decision-making was reviewed with the Resident Physician. I agree with the documented findings, disposition and treatment plan as described except to the extent set forth below. We independently had [id number] contact with the patient I spent 35 minutes of Critical Care time with this patient. It involved decision making of high complexity to assess, manipulate, and support vital organ system failure and/or to prevent further life threatening deterioration of the patient's condition. The time involved in the performance of separately reportable procedures was not counted toward critical care time. Patient seen and examined at bedside Labs, radiology, chart personally reviewed. Management was reviewed during multidisciplinary critical care rounds. 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 he is off paralysis started to follow commands with precedex he had severe bradycardia now back on versed and fentanyl patient has has ventilator dyschrony will like to scan his head to make sure there is no brain stem infarct patient is too unstable to be taken out of the ICU Pulm: Patient hypoxic respiratory failure requiring high PEEP therapy which helps to convert the shunt fraction into V/Q mismatch brought down the FIO2 to 60% to keep the PEEP at 12 once the FIO2 is brought down to 40% will bring down the PEEP patient is currently paralyzed because of ventilator dyschrony when oxygenation stable of PEEP will stop the muscle relaxant The V/Q mismatch is due to fluid overload with multifocal pneumonia vs Septic embolic Try to come down the FIO2 of 40% with PEEP of 12 if he is tolerating the ventilator settings then will stop paralysis and see how he does . 04/25 Took the patient off paralysis patient has good ventilator synchrony to bring FIO2 first then bring down on the PEEP fluid removal as tolerated 04/26 Today patient was breath stacking change him to VC plus tolerating well titrating down the PEEP P/F ratio improving slowly 04/27 Has lot of ventilator dyssynchrony with VC plus will increase his sedation . Cards:. Patient has some systolic heart failure , CAD with antiplatelet therapy patient doesnt have contraindications for anti-platelet therapy for now TTE didnt show any vegetations if next blood cultures positive will need LYDIA , blood culture which was sent 04/22 is in process . Patient is septic shock titrating down on the vasopressors . 04/24 titrating down the vasopressors 04/25 Patient is off vasopressors . 04/26 Blood pressure is labile went on vasopressors again 04/27 Titrating down the vasopressors has labile blood pressure can be due to vasomotor instability FEN-GI:Feeding as per nutrition recs Renal: NANCY needing CCVHD to run even ID: To continue the broad spectrum antibiotics will start descalating soon the latest blood cultures were negative . 04/27 Had a fever overnight recultured , CXR stable . Heme/Onc:Labs reviewed with some thrombocytopenia Endo: Glucose Monitored Integ/MSK: Skin Care per routine ICU Nursing Protocol to prevent ulcers. Lines: All lines examined without evidence of infection : Dispo: Critically ill with high risk of cardio respiratory failure CODE:Full Code
--- NOTE | 2017-04-27 13:50 | Nephrology Progress Note ---
Date of Encounter: 04/27/17 Time of Encounter: 12:00 - Assessment and Plan (1) NANCY (acute kidney injury) Current Visit: Yes Status: Acute Pt remains anuric and LINE PERSON dependent, Will continue CVVHDF. Goal of care discussed with nurse and critical care team UOP very poor at 28cc in the past 24hrs Will maintain even fluid balance Continue anticoagulation with citrate protocol Continue to avoid nephrotoxins if possible Limit obligate fluids if possible Provided an update regarding renal status to family and answered all questions Critical care time spent approx. 35mins (2) Acute respiratory failure with hypoxia Current Visit: Yes Status: Acute Vent management per critical acre (3) Septic shock Current Visit: Yes Status: Acute Antibiotics per critical care team Subjective Principal diagnosis: Sepsis/Septic Shock Interval history: Interim events noted with an episode of bradycardia overnight. Precedex discontinued and versed resumed. Also febrile overnight. Pt seen and examined with family at bedside. He remains intubated and sedated on CVVHDF. Per nurse, now off pressor support. UOP remains minimal. Objective - Vital Signs Vital signs: Vital Signs Temp Pulse Resp BP Pulse Ox 04/27/17 13:00 104 25 166/86 98 04/27/17 12:00 98.6 F 100 25 130/61 98 04/27/17 11:33 105 04/27/17 11:00 104 25 131/52 98 04/27/17 10:00 96 25 184/75 98 04/27/17 09:57 25 98 04/27/17 09:00 98 25 147/66 98 04/27/17 08:00 98.2 F 86 25 153/77 98 04/27/17 07:45 25 98 04/27/17 07:00 82 25 184/83 98 04/27/17 06:00 72 26 142/59 97 04/27/17 05:07 27 164/54 95 04/27/17 05:00 98.6 F 70 29 151/50 95 04/27/17 04:00 101 F H 77 26 88/48 96 04/27/17 03:00 101.5 F H 101 30 94/49 93 04/27/17 02:00 101 28 120/48 96 04/27/17 01:03 25 135/63 94 04/27/17 01:00 101.2 F H 105 28 116/54 95 04/27/17 00:00 106 28 121/53 93 04/26/17 23:09 29 113/50 93 04/26/17 23:00 105 26 145/62 94 04/26/17 21:58 86 27 137/61 96 04/26/17 21:00 61 26 98/56 94 04/26/17 20:00 98 F 67 24 114/63 95 04/26/17 19:40 28 120/60 99 04/26/17 19:00 99 27 117/58 96 04/26/17 18:00 96 22 107/48 98 04/26/17 17:00 94 28 69/33 98 04/26/17 16:21 16 95 04/26/17 16:00 92 25 160/74 94 04/26/17 15:31 101 04/26/17 15:00 97.9 F 101 25 98/50 99 04/26/17 14:48 25 99 04/26/17 14:00 95 25 123/73 97 Intake and Output 04/26/17 04/27/17 04/27/17 23:59 07:59 15:59 Intake Total 1913.1 / 1913.1 1308.0 / 1308.0 1515 / 1515 Output Total 1926 / 1926 2218 / 2218 1125 / 1125 Balance -12.9 / -12.9 -910.0 / -910.0 390 / 390 Intake: IV Fluids 1365.1 / 1365.1 789.0 / 789.0 1415 / 1415 Calcium Chloride 4,000 MG In 0. 909 / 909 1040 / 1040 9 % Sodium Chloride 1,000 ML @ 40 mls/hr CRRT CONT [facility] Rx#: [id number] PrismaSATE BGK 4/2.5 5,000 ML @ 0 / 0 0 / 0 0 / 0 1500 mls/hr CRRT CONT [facility] Rx#: [id number] DOPamine Premix 400mg/250mL 400 0 / 0 mg In 250 ml @ 2.5 MCG/KG/MIN 9.281 mls/hr IVC .Q24H [facility] Rx#: [id number] PRECEDEX Premix 400 mcg In 100 80.0 / 80.0 90 / 90 ml @ 0.2 MCG/KG/HR 5.025 mls/hr IVC .[id number] [facility] Rx#: [id number] FentaNYL (PF) 2,500 MCG In 10.2 / 10.2 36 / 36 34 / 34 Empty Bag 1 Each @ 50 MCG/HR 1 mls/hr IVC CONT [facility] Rx#: [id number] HumuLIN R 100 UNIT In 0.9 % 28.0 / 28.0 63.0 / 63.0 41 / 41 Sodium Chloride 100 ML @ 12 UNIT/HR 12.12 mls/hr IVC CONT [facility] Rx#:[id number] Versed 50 MG In 0.9 % Sodium 43.4 / 43.4 100 / 100 Chloride 90 ML @ 2 MG/HR 4 mls/ hr IVC CONT [facility] Rx#:[id number] Levophed 16 MG In Dextrose 5% 65.5 / 65.5 200 / 200 0 / 0 500 ML @ 25 MCG/MIN 48.37 mls/ hr IVC CONT [facility] Rx#:[id number] Norcuron 50 MG In Empty Bag 50 0 / 0 Each In 0.9 % Sodium Chloride 150 ML @ 0.8 MCG/KG/MIN 14.25 mls/hr IVC CONT [facility] Rx#: [id number] Nafcillin 2,000 MG In 0.9 % 200.0 / 200.0 200 / 200 200 / 200 Sodium Chloride (Mini-Bag +) 100 ML @ 200 mls/hr IVPB Q4HR [facility] Rx#:[id number] Zosyn 3.375 GM In 0.9 % Sodium 29 / 29 100 / 100 100 / 100 Chloride (Mini-Bag +) 100 ML @ 25 mls/hr IVPB Q8H [facility] Rx#: [id number] Tube Feeding 468 / 468 419 / 419 Free Water 40 / 40 Free Water Intake Amount 40 / 40 100 / 100 100 / 100 Output: Nahomy 1916 / 1916 2208 / 2208 1125 / 1125 Catheter / 10 / 10 0 / 0 Other: Stool Size Copious Moderate Stool Consistency liquid loose liquid Stool Color Brown # Bowel Movements 1 Blood Glucose* 203 164 - General Appearance General appearance: Present: sedated on ventilator, intubated EENT: Present: ATNC, mucous membranes moist Neck: Present: no JVD, supple Additional Comments: Good areation ant bilat Cardiology: Present: edema (UE,LE), normal S1, normal S2 Gastrointestinal: Present: no tenderness, no guarding Additional Comments: soft Integumentary: Present: warm and dry Additional Comments: intubated/sedated Musculoskeletal: Present: no deformities Additional Comments: intubated/sedated - Lab 04/27/17 09:30 04/27/17 09:30 Most recent lab results ABG pH 7.44 pH Units (7.32-7.45) 04/27/17 04:40 ABG pCO2 38 mmHg (35-45) 04/27/17 04:40 ABG pO2 57 mmHg (85-104) L 04/27/17 04:40 ABG HCO3 26 mEq/L (21-27) 04/27/17 04:40 ABG O2 Saturation 90 % (95-98) L 04/27/17 04:40 Calcium 10.9 mg/dL (8.6-10.3) H 04/27/17 09:30 Phosphorus 3.0 mg/dL (2.7-4.5) 04/27/17 03:49 Magnesium 2.0 mg/dL (1.6-2.6) 04/27/17 03:49 - VTE Documentation of Mechanical Device: Intermittent pneumatic compression device Consult Discharge Plan - Plan Referrals: Kannan Hurley DO [Primary Care Provider] - Juan Lake [Family Provider] -
[2017-04-27 14:29] LABS: VBG Ionized Calcium 1.22 mmol/L (1.15-1.35)
--- NOTE | 2017-04-27 15:18 | Electrocardiograph Report ---
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
[2017-04-27] MEDS: EPINEPHrine 1 MG in 0.9 % Sodium Chloride 250 ML IVC SCH (16:34)
[2017-04-27] MEDS: Vancomycin Oral Soln 250 MG/5 ML UDC PO SCH ×2 (16:41→20:05)
[2017-04-27] MEDS: SODIUM CHLORIDE IVC SCH (16:42)
[2017-04-27] MEDS: VECURONIUM IVC SCH (16:42)
--- NOTE | 2017-04-27 16:50 | Electrocardiograph Report ---
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
[2017-04-27] MEDS ORDERED: *HR* Heparin 5,000 UNIT/ML VIAL ONE (19:27)
[2017-04-27 20:09] LABS: VBG Ionized Calcium 1.12 mmol/L (1.15-1.35)
[2017-04-27] MEDS: Norepinephrine 16 MG in D5% in Water 500 ML IVC SCH (20:09)
[2017-04-27] MEDS ORDERED: 0.9 % Sodium Chloride 500 ML ONE (20:33)
[2017-04-28 02:05] LABS: VBG Ionized Calcium 1.17 mmol/L (1.15-1.35)
[2017-04-28] MEDS: Nafcillin 2,000 MG in 0.9 % Sodium Chloride Mini Bag 100 ML IVPB SCH ×6 (03:16→23:22)
[2017-04-28] MEDS: Lacri-Lube 3.5 GM TUBE BOTH EYES SCH ×6 (03:16→23:23)
[2017-04-28] MEDS: Piperacillin/Tazobactam 3.375 GM in 0.9 % Sodium Chloride Mini Bag 100 ML IVPB SCH ×3 (03:17→20:20)
[2017-04-28] MEDS: Insulin LISPRO 300 UNITS/3 ML VIAL SQ SCH ×6 (03:19→23:22)
[2017-04-28 03:41] LABS: Basophils % 0.3 %; Eosinophils # 0.4 K/mcL (0.0-0.6); Eosinophils % 2.2 %; Hematocrit 24.6 % (37.5-50.1); Hemoglobin 7.8 g/dL (12.9-16.9); Immature Granulocytes % 17.9 % (0-4); Lymphocytes # 1.4 K/mcL (0.6-4.6); Lymphocytes % 9.1 %; Mean Corpuscular HGB Conc 31.7 g/dL (31.6-35.5); Mean Corpuscular Hemoglobin 27.6 pg (28.0-33.3); Mean Corpuscular Volume 86.9 fL (83.0-100.0); Mean Platelet Volume 9.9 fL (9.4-12.4); Monocytes # 1.5 K/mcL (0.0-1.3); Monocytes % 9.3 %; Neutrophils # 9.7 K/mcL (1.6-8.9); Nucleated Red Blood Cells 0.2 /100 WBC (0); Platelet Count 183 K/mcL (140-400); Red Blood Count 2.83 M/mcL (4.19-5.50); Red Cell Distribution Width 14.4 % (11.5-14.5); Segmented Neutrophils % 61.2 %
[2017-04-28 03:51] LABS: Basophils # 0.1 K/mcL (0.0-0.2)
[2017-04-28] MEDS: Calcium Chloride 4,000 MG in 0.9 % Sodium Chloride 1,000 ML CRRT SCH ×2 (04:05→12:45)
[2017-04-28] MEDS: PrismaSATE BGK 4/2.5 5,000 ML CRRT SCH ×8 (04:06→20:38)
[2017-04-28 04:33] LABS: Platelet Estimate Normal (Normal); Reactive Lymphocytes Present (Not Present); Toxic Granulation Present (Not Present)
[2017-04-28 04:39] LABS: Albumin 2.5 g/dL (3.5-5.7); Albumin/Globulin Ratio 0.8 (1.1-2.2); Bilirubin,Direct 0.3 mg/dL (0.0-0.2); Bilirubin,Indirect 0.4 mg/dL (0.0-1.2); Bilirubin,Total 0.7 mg/dL (0.3-1.0); Calcium 10.8 mg/dL (8.6-10.3); Globulin 3.3 g/dL (2.4-3.5); Magnesium 2.1 mg/dL (1.6-2.6); Potassium 4.6 mEq/L (3.5-5.1); Total Protein 5.8 g/dL (6.4-8.9)
[2017-04-28 04:55] LABS: ABG Base Excess 3 mEq/L (-2 to 3); ABG HCO3 27 mEq/L (21-27); ABG Oxygen Saturation 97 % (95-98); ABG PCO2 39 mmHg (35-45); ABG PH 7.45 pH Units (7.32-7.45); ABG PO2 85 mmHg (85-104); ABG TCO2 28 mEq/L (20-26); Blood Gas Modality PRVC; Blood Gas PEEP 5 cm H2O; Blood Gas Respiration Rate 22; Blood Gas VT 450 cc
[2017-04-28] MEDS: Pantoprazole 40 MG VIAL IVP SCH ×2 (06:08→17:28)
[2017-04-28] MEDS: Aspirin 81 MG TAB.CHEW PO SCH (07:59)
[2017-04-28] MEDS: *HR* Ticagrelor 90 MG TABLET PO SCH ×2 (07:59→20:37)
[2017-04-28] MEDS: Chlorhexidine Rinse 15 ML MOUTHWASH MM SCH ×2 (07:59→20:37)
[2017-04-28] MEDS: Insulin DETEMIR 100 UNIT/ML X5UNITS SQ SCH (08:00)
[2017-04-28] MEDS: Vancomycin Oral Soln 250 MG/5 ML UDC PO SCH (08:12)
[2017-04-28] MEDS: FentaNYL (PF) 2,500 MCG in EMPTY BAG 1 EACH IVC SCH ×2 (08:21→21:42)
--- NOTE | 2017-04-28 08:55 | Pulmonology Progress Note ---
Date of Encounter: 04/28/17 Time of Encounter: 08:00 Assessment and Plan (1) Acute respiratory failure with hypoxia Current Visit: Yes Status: Acute Patient was on severe acute respiratory failure with hypoxia secondary to ARDS like picture didnt fit full criteria as patient has acute on chronic diastolic heart failure contributing to the picture . Lung protective strategy with acceptable oxygenation and ventilation. Difficult liberation from ventilation breath stacking . Will try liberating Versed first (2) Septic shock Current Visit: Yes Status: Acute Secondary to Staph aureus bacteremia. Lactic acidosis resolved and stable. To keep MAP >65. Patient is not on any Levophed Repeat culture sputum, continue abx. nothing is growing Empiric antibiotics: Nafcillin day 5 Zosyn day 4 (plan discontinue Sunday) Consider broadening pending blood and sputum cultures. Cultures so far is negative Discontinued: Meropenem after 3days Microbiology: Sputum culture 04/27 pending Blood culture peripheral 04/27 pending Sputum culture 04/24 light colonies staph aureus Blood culture peripheral 04/22 (-) @48hr Blood culture peripheral 04/20 (+) MSSA Wound culture Lt wrist 04/20 (+) MSSA Anaerobic culture Lt wrist 04/20 (-) prelim. 5d incubation pending Neurosedatives: Failed wean from versed to precedex secondary to bradycardia. Continue versed gtt will transitioned to propofol and fentanyl Seroquel 75 mg BID Analgesia: Fentanyl gtt Ventilator: Wean PEEP and FiO2 as tolerated. Patient is within acceptable oxygenation and ventilation 04/28 : Patient is not on any vasopressor (3) Hematoma Current Visit: Yes Status: Acute Patient hematoma in the abdominal wall is stable resolving surgery following . (4) NANCY (acute kidney injury) Current Visit: Yes Status: Acute Patient is on CVVHD with some fluid removal appreciate nephrology recs. (5) Coronary artery disease Current Visit: Yes Status: Chronic LHC 04/16/17 with RAMÍREZ to prox circ. LVEF 55% with normal contractility. Hx CABC x4 in 2012. Hx DM, HTN, HLD, CAD Continue lipitor, aspirin, brilinta, norvasc. Qualifiers: Coronary Disease-Associated Artery/Lesion type: [place] artery [place] vs. transplanted heart: [place] heart Associated angina: with other forms of angina Qualified Code(s): I25.118 - Atherosclerotic heart disease of [place] coronary artery with other forms of angina pectoris (6) Ventilator dependence Current Visit: Yes Status: Acute Concern for critical illness myopathy the way he breathes will consider neuro consult . Concern for intracranial process when stable will send for CT scan Subjective Principal diagnosis: Sepsis/Septic Shock Interval history: Patient is still intubated and ventilated not able to liberate from sedation because of ventilatory dysynchrony , didnt have any overnight events . Objective PUL Vital signs: Last Vital Signs Temp 98.2 F 04/28/17 03:00 Pulse 90 04/28/17 08:00 Resp 23 04/28/17 08:00 BP 120/65 04/28/17 08:00 Pulse Ox 97 04/28/17 08:00 General appearance: other (Patient is sedated because of ventilator dysynchrony ) Auscultation: bilateral: diminished breath sounds, other (scattered crackles ) Cardiovascular: irregular rhythm Extremities: edema unable to assess due to mental status other (not able to assess ) Ventilator Settings Ventilator Settings: Ventilator Settings, Last 8 Hours Ventilator Mode VC+ Ventilator Mode VC+ Ventilator Mode VC+ Ventilator Mode VC+ Ventilator Mode VC+ Ventilator Mode VC+ Ventilator Tidal Volume 450 Setting Ventilator Tidal Volume 450 Setting Ventilator Tidal Volume 450 Setting Ventilator Tidal Volume 450 Setting Ventilator Tidal Volume 450 Setting Ventilator Tidal Volume 450 Setting Ventilator Respiratory Rate 22 Setting Ventilator Respiratory Rate 22 Setting Ventilator Respiratory Rate 22 Setting Ventilator Respiratory Rate 22 Setting Ventilator Respiratory Rate 22 Setting Ventilator Respiratory Rate 22 Setting Actual Respiratory Rate 23 Actual Respiratory Rate 22 Actual Respiratory Rate 24 Actual Respiratory Rate 22 Actual Respiratory Rate 25 Positive End Expiratory 5 Pressure Positive End Expiratory 5 Pressure Positive End Expiratory 5 Pressure Positive End Expiratory 5 Pressure Positive End Expiratory 5 Pressure Positive End Expiratory 5 Pressure Peak Inspiratory Airway 23 Pressure Peak Inspiratory Airway 25 Pressure Peak Inspiratory Airway 25 Pressure Peak Inspiratory Airway 24 Pressure Peak Inspiratory Airway 25 Pressure Results - Laboratory Findings CBC and BMP: 04/28/17 03:15 04/28/17 03:15 ABG ABG pH 7.45 pH Units (7.32-7.45) 04/28/17 04:52 ABG pCO2 39 mmHg (35-45) 04/28/17 04:52 ABG pO2 85 mmHg (85-104) 04/28/17 04:52 ABG O2 Saturation 97 % (95-98) 04/28/17 04:52 PT/INR, D-dimer PT 15.1 Seconds (9.4-12.1) H 04/26/17 04:00 D-Dimer 5447 ng/mLFEU (0-500) H 04/21/17 05:41 Abnormal lab findings: Abnormal lab results WBC 15.8 K/mcL (4.3-11.1) H 04/28/17 03:15 RBC 2.83 M/mcL (4.19-5.50) L 04/28/17 03:15 Hgb 7.8 g/dL (12.9-16.9) L 04/28/17 03:15 Hct 24.6 % (37.5-50.1) L 04/28/17 03:15 MCH 27.6 pg (28.0-33.3) L 04/28/17 03:15 Immature Gran % 17.9 % (0-4) H 04/28/17 03:15 Band Neutrophils % 10.0 % (0-4) H 04/27/17 09:30 Metamyelocytes % 6.0 % (0) H 04/27/17 09:30 Myelocytes % 5.0 % (0) H 04/27/17 09:30 Promyelocytes % 2.0 % (0) H 04/27/17 09:30 Blast Cells % 1.0 % (0) H 04/27/17 09:30 Neutrophils # 9.7 K/mcL (1.6-8.9) H 04/28/17 03:15 Monocytes # 1.5 K/mcL (0.0-1.3) H 04/28/17 03:15 Nucleated RBCs/100 WBC 0.2 /100 WBC (0) H 04/28/17 03:15 Reactive Lymphocytes Present (Not Present) A 04/28/17 03:15 Toxic Granulation Present (Not Present) A 04/28/17 03:15 Toxic Vacuolation Present (Not Present) A 04/21/17 14:25 Immature Plt Fraction 9.4 % (1.1-6.1) H 04/23/17 03:00 PT 15.1 Seconds (9.4-12.1) H 04/26/17 04:00 Fibrinogen 583 mg/dL (169-393) H 04/21/17 12:50 D-Dimer 5447 ng/mLFEU (0-500) H 04/21/17 05:41 ABG Total CO2 28 mEq/L (20-26) H 04/28/17 04:52 VBG pO2 67 mmHg (25-50) H 04/27/17 06:26 Chloride 108 mEq/L (98-107) H 04/28/17 03:15 Carbon Dioxide 22 mEq/L (23-29) L 04/28/17 03:15 BUN 55 mg/dL (8-23) H 04/28/17 03:15 Creatinine 3.39 mg/dL (0.70-1.30) H 04/28/17 03:15 Est GFR ( Amer) 23 (> 60) L 04/28/17 03:15 Est GFR (Non-Af Amer) 19 (> 60) L 04/28/17 03:15 Glucose 180 mg/dL (70-105) H 04/28/17 03:15 POC Glucose 195 (58-89) H 04/27/17 23:40 Calculated Osmolality 306 (280-300) H 04/28/17 03:15 Calcium 10.8 mg/dL (8.6-10.3) H 04/28/17 03:15 Direct Bilirubin 0.3 mg/dL (0.0-0.2) H 04/28/17 03:15 Troponin I 4.23 ng/mL (< 0.04) H* 04/21/17 14:25 Serum Total Protein 5.8 g/dL (6.4-8.9) L 04/28/17 03:15 Albumin 2.5 g/dL (3.5-5.7) L 04/28/17 03:15 Albumin/Globulin Ratio 0.8 (1.1-2.2) L 04/28/17 03:15 HDL Cholesterol 27 mg/dL (40-59) L 04/20/17 03:48 Vancomycin Trough 39.7 mcg/mL (10-20) H* 04/21/17 12:50 Staphylococcus sp PCR DETECTED (Not Detect) A 04/20/17 03:48 Staph aureus (PCR) DETECTED (Not Detect) A 04/20/17 03:48 - Microbiology Findings Microbiology Findings: Microbiology, Last 48 Hours 04/22/17 12:35 Blood Culture - Final Peripheral Venipuncture No growth. 04/22/17 12:35 Blood Culture - Final Peripheral Venipuncture No growth. 04/27/17 07:17 Blood Culture - Preliminary Peripheral Venipuncture No growth. 04/27/17 07:17 Blood Culture - Preliminary Peripheral Venipuncture No growth. 04/27/17 13:52 Sputum Culture - Preliminary Sputum 04/24/17 11:15 Sputum Culture - Final Sputum Staphylococcus aureus - Clinical Findings Intake & Output: Intake & Output 04/27/17 04/28/17 04/28/17 23:59 07:59 15:59 Intake Total 2432 / 2432 2122 / 2122 407.7 / 407.7 Output Total 2013 2171 / 2171 198 / 198 Balance 418 / 418 -49 / -49 209.7 / 209.7 - VTE Documentation of Mechanical Device: Intermittent pneumatic compression device Consult Discharge Plan - Plan Referrals: Kannan Hurley DO [Primary Care Provider] - Juan Lake [Family Provider] -
[2017-04-28 08:58] LABS: VBG Ionized Calcium 1.42 mmol/L (1.15-1.35)
--- NOTE | 2017-04-28 12:25 | Nephrology Progress Note ---
Date of Encounter: 04/28/17 Time of Encounter: 11:00 - Assessment and Plan (1) NANCY (acute kidney injury) Current Visit: Yes Status: Acute Pt remains anuric and [employer] dependent, Will continue CVVHDF. Goal of care discussed with nurse and critical care team UOP very poor at 43cc in the past 24hrs Will maintain even to negative fluid balance if hemodynamics await Continue anticoagulation with citrate protocol Continue to avoid nephrotoxins if possible Limit obligate fluids if possible Critical care time spent approx. 35mins (2) Acute respiratory failure with hypoxia Current Visit: Yes Status: Acute Vent management per critical acre (3) Septic shock Current Visit: Yes Status: Acute Antibiotics per critical care team Subjective Principal diagnosis: Sepsis/Septic Shock Interval history: Interim events noted, Pt seen and examined remaining off pressors but per nurse with fluctuating hemodynamics and HR and BP readings. he is now sedated on versed, propofol and fentanyl gtts. He also remains intubated and on CVVHDF. UOP remains minimal. Objective - Vital Signs Vital signs: Vital Signs Temp Pulse Resp BP Pulse Ox 04/28/17 12:00 78 22 88/57 100 04/28/17 11:08 22 100 04/28/17 11:05 86 04/28/17 11:00 97.5 F L 86 22 101/65 10 04/28/17 10:00 86 22 104/63 98 04/28/17 09:51 22 102/64 99 04/28/17 09:00 92 22 116/64 97 04/28/17 08:00 90 23 120/65 97 04/28/17 07:40 92 04/28/17 07:34 23 128/70 98 04/28/17 06:51 92 23 125/68 98 04/28/17 06:02 24 127/70 98 04/28/17 06:00 94 24 124/66 98 04/28/17 05:00 93 24 113/60 97 04/28/17 04:00 101 25 114/60 95 04/28/17 03:53 22 109/58 96 04/28/17 03:44 99 04/28/17 03:00 98.2 F 102 25 114/65 96 04/28/17 01:57 96 23 122/58 100 04/28/17 01:11 24 121/60 98 04/28/17 01:00 105 25 115/55 97 03/10/18 00:00 98.4 F 105 26 148/74 97 04/27/17 23:35 22 126/60 99 04/27/17 23:00 106 24 121/64 98 04/27/17 22:00 112 28 167/93 94 04/27/17 21:30 29 146/65 93 04/27/17 21:00 110 24 153/69 97 04/27/17 20:00 98.7 F 109 26 154/72 98 04/27/17 19:19 25 154/71 99 04/27/17 19:00 104 24 130/68 99 04/27/17 18:00 105 24 144/68 96 04/27/17 17:50 24 96 04/27/17 17:00 112 24 131/77 99 04/27/17 16:02 28 99 04/27/17 16:00 98.6 F 112 28 173/85 99 04/27/17 15:00 98.4 F 105 25 137/61 98 04/27/17 14:21 99 04/27/17 14:12 27 100 04/27/17 14:00 98 25 137/70 98 04/27/17 13:00 104 25 166/86 98 Intake and Output 04/27/17 04/28/17 04/28/17 23:59 07:59 15:59 Intake Total 2432 / 2432 2122 / 2122 1400.0 / 1400.0 Output Total 2013 2171 / 2171 1025 / 1025 Balance 418 / 418 -49 / -49 375.0 / 375.0 Intake: IV Fluids 1596 / 1596 1644 / 1644 1078.0 / 1078.0 Calcium Chloride 4,000 MG In 0. 1040 / 1040 1040 / 1040 591 / 591 9 % Sodium Chloride 1,000 ML @ 40 mls/hr CRRT CONT [facility] Rx#: [id number] PrismaSATE BGK 4/2.5 5,000 ML @ 0 / 0 0 / 0 0 / 0 1500 mls/hr CRRT CONT [facility]ILIO Rx#: [id number] FentaNYL (PF) 2,500 MCG In 50 / 50 65.8 / 65.8 Empty Bag 1 Each @ 50 MCG/HR 1 mls/hr IVC CONT [facility]ILIO Rx#: [id number] Versed 50 MG In 0.9 % Sodium 200 / 200 200 / 200 121.2 / 121.2 Chloride 90 ML @ 2 MG/HR 4 mls/ hr IVC CONT CECILIO Rx#:[id number] Diprivan 1,000 mg In 100 ml @ 5 6 / 6 94 / 94 100.0 / 100.0 MCG/KG/MIN 3.015 mls/hr IVC . Q24H [facility] Rx#:[id number] Nafcillin 2,000 MG In 0.9 % 200 / 200 210 / 210 100 / 100 Sodium Chloride (Mini-Bag +) 100 ML @ 200 mls/hr IVPB Q4HR [facility] Rx#:[id number] Zosyn 3.375 GM In 0.9 % Sodium 100 / 100 100 / 100 100 / 100 Chloride (Mini-Bag +) 100 ML @ 25 mls/hr IVPB Q8H [facility] Rx#: [id number] Tube Feeding 836 / 836 478 / 478 322 / 322 Output: Stool 200 / 200 Nahomy 1796 / 1796 1958 / 1958 1020 / 1020 Rectal Tube 0 / 0 200 / 200 Catheter 5 / 5 Other: Stool Consistency liquid Stool Color Brown Blood Glucose* 216 196 - General Appearance General appearance: Present: sedated on ventilator, intubated EENT: Present: ATNC Neck: Present: no JVD, supple Respiratory: Present: clear Cardiology: Present: edema (generalized), normal S1, normal S2 Dialysis Vascular Access: Venous Catheter (temp femoral) Gastrointestinal: Present: no tenderness, no guarding Integumentary: Present: warm and dry Additional Comments: intubated/sedated Musculoskeletal: Present: no deformities Additional Comments: intubated/sedated - Lab 05/01/17 04:15 05/01/17 04:15 Most recent lab results ABG pH 7.45 pH Units (7.32-7.45) 04/28/17 04:52 ABG pCO2 39 mmHg (35-45) 04/28/17 04:52 ABG pO2 85 mmHg (85-104) 04/28/17 04:52 ABG HCO3 27 mEq/L (21-27) 04/28/17 04:52 ABG O2 Saturation 97 % (95-98) 04/28/17 04:52 Calcium 10.8 mg/dL (8.6-10.3) H 04/28/17 03:15 Phosphorus 3.0 mg/dL (2.7-4.5) 04/27/17 03:49 Magnesium 2.1 mg/dL (1.6-2.6) 04/28/17 03:15 - VTE Documentation of Mechanical Device: Intermittent pneumatic compression device Consult Discharge Plan - Plan Referrals: Kannan Hurley DO [Primary Care Provider] - Juan Lake [Family Provider] -
[2017-04-28 13:27] LABS: ABG Ionized Calcium 1.42 mmol/L (1.15-1.35)
[2017-04-28 15:11] LABS: ABG Ionized Calcium 1.41 mmol/L (1.15-1.35)
[2017-04-28] MEDS: EPINEPHrine 1 MG in 0.9 % Sodium Chloride 250 ML IVC SCH (15:34)
[2017-04-28] MEDS: SODIUM CHLORIDE IVC SCH (15:34)
[2017-04-28] MEDS: VECURONIUM IVC SCH (15:34)
[2017-04-28 17:31] LABS: VBG Ionized Calcium 1.39 mmol/L (1.15-1.35)
[2017-04-28] MEDS: Dexmedetomidine HCl 400 MCG/100 ML MLS IVC SCH (22:08)
[2017-04-28 22:13] LABS: ABG Ionized Calcium 1.33 mmol/L (1.15-1.35)
[2017-04-28] MEDS: Norepinephrine 16 MG in D5% in Water 500 ML IVC SCH (23:23)
[2017-04-29] MEDS: Calcium Chloride 4,000 MG in 0.9 % Sodium Chloride 1,000 ML CRRT SCH ×2 (01:00→15:14)
[2017-04-29 01:05] LABS: ABG Ionized Calcium 1.26 mmol/L (1.15-1.35)
[2017-04-29] MEDS: PrismaSATE BGK 4/2.5 5,000 ML CRRT SCH ×8 (01:52→20:52)
[2017-04-29] MEDS: Piperacillin/Tazobactam 3.375 GM in 0.9 % Sodium Chloride Mini Bag 100 ML IVPB SCH ×3 (03:50→19:43)
[2017-04-29] MEDS: Nafcillin 2,000 MG in 0.9 % Sodium Chloride Mini Bag 100 ML IVPB SCH ×6 (03:51→23:49)
[2017-04-29] MEDS: Lacri-Lube 3.5 GM TUBE BOTH EYES SCH ×6 (03:52→23:48)
[2017-04-29] MEDS: Insulin LISPRO 300 UNITS/3 ML VIAL SQ SCH ×6 (03:52→23:48)
[2017-04-29] MEDS: FentaNYL (PF) 2,500 MCG in EMPTY BAG 1 EACH IVC SCH ×2 (04:46→17:35)
[2017-04-29 05:18] LABS: ABG Base Excess 0 mEq/L (-2 to 3); ABG HCO3 25 mEq/L (21-27); ABG Oxygen Saturation 96 % (95-98); ABG PCO2 39 mmHg (35-45); ABG PH 7.41 pH Units (7.32-7.45); ABG PO2 78 mmHg (85-104); ABG TCO2 26 mEq/L (20-26); Blood Gas Modality PRVC; Blood Gas PEEP 5 cm H2O; Blood Gas Respiration Rate 22; Blood Gas VT 450 cc
[2017-04-29] MEDS: Pantoprazole 40 MG VIAL IVP SCH ×2 (05:22→18:39)
[2017-04-29 05:52] LABS: ABG Ionized Calcium 1.24 mmol/L (1.15-1.35)
--- NOTE | 2017-04-29 07:30 | Pulmonology Progress Note ---
Date of Encounter: 04/29/17 Time of Encounter: 07:00 Assessment and Plan (1) Acute respiratory failure with hypoxia Current Visit: Yes Status: Acute Patient was on severe acute respiratory failure with hypoxia secondary to ARDS like picture didnt fit full criteria as patient has acute on chronic diastolic heart failure contributing to the picture . Lung protective strategy with acceptable oxygenation and ventilation. Difficult liberation from ventilation breath stacking . Will try liberating Versed first then Propofol the goal is try SBT on fentanyl alone . Patient didnt tolerate precedex (2) Septic shock Current Visit: Yes Status: Acute Secondary to Staph aureus bacteremia. Lactic acidosis resolved and stable. To keep MAP >65. Patient is not on any Levophed Repeat culture sputum, continue abx. nothing is growing Empiric antibiotics: Nafcillin day 6 Zosyn day 5 stop date is today Consider broadening pending blood and sputum cultures. Cultures so far is negative Discontinued: Meropenem after 3days Microbiology: Sputum culture 04/27 pending Blood culture peripheral 04/27 pending Sputum culture 04/24 light colonies staph aureus Blood culture peripheral 04/22 (-) @48hr Blood culture peripheral 04/20 (+) MSSA Wound culture Lt wrist 04/20 (+) MSSA Anaerobic culture Lt wrist 04/20 (-) prelim. 5d incubation pending Neurosedatives: Failed wean from versed to precedex secondary to bradycardia. Continue versed gtt will transitioned to propofol and fentanyl Seroquel 75 mg BID Analgesia: Fentanyl gtt Ventilator: Wean PEEP and FiO2 as tolerated. Patient is within acceptable oxygenation and ventilation 04/28 : Patient is not on any vasopressor 04/29 Repeat sputum culture on 04/27 is growing Staphaureus will need follow sensitivity . (3) Hematoma Current Visit: Yes Status: Acute Patient hematoma in the abdominal wall is stable resolving surgery signed off (4) NANCY (acute kidney injury) Current Visit: Yes Status: Acute Patient is on CVVHD with some fluid removal appreciate nephrology recs. (5) Coronary artery disease Current Visit: Yes Status: Chronic LHC 04/16/17 with RAMÍREZ to prox circ. LVEF 55% with normal contractility. Hx CABC x4 in 2012. Hx DM, HTN, HLD, CAD Continue lipitor, aspirin, brilinta, norvasc. Qualifiers: Coronary Disease-Associated Artery/Lesion type: [place] artery [place] vs. transplanted heart: [place] heart Associated angina: with other forms of angina Qualified Code(s): I25.118 - Atherosclerotic heart disease of [place] coronary artery with other forms of angina pectoris (6) Ventilator dependence Current Visit: Yes Status: Acute Concern for critical illness myopathy the way he breathes if he fails repeatedly will consider Neuro Consult. Subjective Principal diagnosis: Sepsis/Septic Shock Interval history: Patient is still intubated and ventilated not able to liberate from sedation because of ventilatory dysynchrony , didnt have any overnight events . 04/29 Patient did not have any overnight events . Objective PUL Vital signs: Last Vital Signs Temp 99.0 F 04/29/17 07:00 Pulse 101 04/29/17 07:00 Resp 23 04/29/17 07:00 BP 118/61 04/29/17 07:00 Pulse Ox 98 04/29/17 07:00 Auscultation: bilateral: diminished breath sounds (basilar diminished breadth sounds ) Gastrointestinal: hypoactive bowel sounds, soft Extremities: edema unable to assess due to mental status tearful, other (unable to assess ) Ventilator Settings Ventilator Settings: Ventilator Settings, Last 8 Hours Ventilator Mode VC+ Ventilator Mode VC+ Ventilator Mode VC+ Ventilator Mode VC+ Ventilator Mode VC+ Ventilator Mode VC+ Ventilator Mode VC+ Ventilator Mode VC+ Ventilator Mode VC+ Ventilator Mode VC+ Ventilator Mode VC+ Ventilator Mode VC+ Ventilator Mode VC+ Ventilator Tidal Volume 450 Setting Ventilator Tidal Volume 450 Setting Ventilator Tidal Volume 450 Setting Ventilator Tidal Volume 450 Setting Ventilator Tidal Volume 450 Setting Ventilator Tidal Volume 450 Setting Ventilator Tidal Volume 450 Setting Ventilator Tidal Volume 450 Setting Ventilator Tidal Volume 450 Setting Ventilator Tidal Volume 450 Setting Ventilator Tidal Volume 450 Setting Ventilator Tidal Volume 450 Setting Ventilator Tidal Volume 450 Setting Ventilator Respiratory Rate 22 Setting Ventilator Respiratory Rate 22 Setting Ventilator Respiratory Rate 22 Setting Ventilator Respiratory Rate 22 Setting Ventilator Respiratory Rate 22 Setting Ventilator Respiratory Rate 22 Setting Ventilator Respiratory Rate 22 Setting Ventilator Respiratory Rate 22 Setting Ventilator Respiratory Rate 22 Setting Ventilator Respiratory Rate 22 Setting Ventilator Respiratory Rate 22 Setting Ventilator Respiratory Rate 22 Setting Ventilator Respiratory Rate 22 Setting Actual Respiratory Rate 23 Actual Respiratory Rate 23 Actual Respiratory Rate 23 Actual Respiratory Rate 23 Actual Respiratory Rate 29 Actual Respiratory Rate 24 Actual Respiratory Rate 28 Actual Respiratory Rate 24 Actual Respiratory Rate 27 Actual Respiratory Rate 24 Actual Respiratory Rate 24 Actual Respiratory Rate 23 Positive End Expiratory 5 Pressure Positive End Expiratory 5 Pressure Positive End Expiratory 5 Pressure Positive End Expiratory 5 Pressure Positive End Expiratory 5 Pressure Positive End Expiratory 5 Pressure Positive End Expiratory 5 Pressure Positive End Expiratory 5 Pressure Positive End Expiratory 5 Pressure Positive End Expiratory 5 Pressure Positive End Expiratory 5 Pressure Positive End Expiratory 5 Pressure Positive End Expiratory 5 Pressure Peak Inspiratory Airway 22 Pressure Peak Inspiratory Airway 20 Pressure Peak Inspiratory Airway 20 Pressure Peak Inspiratory Airway 19 Pressure Peak Inspiratory Airway 12 Pressure Peak Inspiratory Airway 24 Pressure Peak Inspiratory Airway 20 Pressure Peak Inspiratory Airway 24 Pressure Peak Inspiratory Airway 23 Pressure Peak Inspiratory Airway 21 Pressure Peak Inspiratory Airway 21 Pressure Peak Inspiratory Airway 22 Pressure Results - Laboratory Findings CBC and BMP: 04/29/17 07:46 04/29/17 08:04 ABG ABG pH 7.41 pH Units (7.32-7.45) 04/29/17 05:15 ABG pCO2 39 mmHg (35-45) 04/29/17 05:15 ABG pO2 78 mmHg (85-104) L 04/29/17 05:15 ABG O2 Saturation 96 % (95-98) 04/29/17 05:15 PT/INR, D-dimer PT 15.1 Seconds (9.4-12.1) H 04/26/17 04:00 D-Dimer 5447 ng/mLFEU (0-500) H 04/21/17 05:41 Abnormal lab findings: Abnormal lab results WBC 15.8 K/mcL (4.3-11.1) H 04/28/17 03:15 RBC 2.83 M/mcL (4.19-5.50) L 04/28/17 03:15 Hgb 7.8 g/dL (12.9-16.9) L 04/28/17 03:15 Hct 24.6 % (37.5-50.1) L 04/28/17 03:15 MCH 27.6 pg (28.0-33.3) L 04/28/17 03:15 Immature Gran % 17.9 % (0-4) H 04/28/17 03:15 Band Neutrophils % 10.0 % (0-4) H 04/27/17 09:30 Metamyelocytes % 6.0 % (0) H 04/27/17 09:30 Myelocytes % 5.0 % (0) H 04/27/17 09:30 Promyelocytes % 2.0 % (0) H 04/27/17 09:30 Blast Cells % 1.0 % (0) H 04/27/17 09:30 Neutrophils # 9.7 K/mcL (1.6-8.9) H 04/28/17 03:15 Monocytes # 1.5 K/mcL (0.0-1.3) H 04/28/17 03:15 Nucleated RBCs/100 WBC 0.2 /100 WBC (0) H 04/28/17 03:15 Reactive Lymphocytes Present (Not Present) A 04/28/17 03:15 Toxic Granulation Present (Not Present) A 04/28/17 03:15 Toxic Vacuolation Present (Not Present) A 04/21/17 14:25 Immature Plt Fraction 9.4 % (1.1-6.1) H 04/23/17 03:00 PT 15.1 Seconds (9.4-12.1) H 04/26/17 04:00 Fibrinogen 583 mg/dL (169-393) H 04/21/17 12:50 D-Dimer 5447 ng/mLFEU (0-500) H 04/21/17 05:41 ABG pO2 78 mmHg (85-104) L 04/29/17 05:15 VBG pO2 67 mmHg (25-50) H 04/27/17 06:26 Chloride 108 mEq/L (98-107) H 04/28/17 03:15 Carbon Dioxide 22 mEq/L (23-29) L 04/28/17 03:15 BUN 55 mg/dL (8-23) H 04/28/17 03:15 Creatinine 3.39 mg/dL (0.70-1.30) H 04/28/17 03:15 Est GFR ( Amer) 23 (> 60) L 04/28/17 03:15 Est GFR (Non-Af Amer) 19 (> 60) L 04/28/17 03:15 Glucose 180 mg/dL (70-105) H 04/28/17 03:15 POC Glucose 288 (58-89) H 04/28/17 23:17 Calculated Osmolality 306 (280-300) H 04/28/17 03:15 Calcium 10.8 mg/dL (8.6-10.3) H 04/28/17 03:15 Venous Ioniz Calcium 1.39 mmol/L (1.15-1.35) H 04/28/17 17:28 Direct Bilirubin 0.3 mg/dL (0.0-0.2) H 04/28/17 03:15 Troponin I 4.23 ng/mL (< 0.04) H* 04/21/17 14:25 Serum Total Protein 5.8 g/dL (6.4-8.9) L 04/28/17 03:15 Albumin 2.5 g/dL (3.5-5.7) L 04/28/17 03:15 Albumin/Globulin Ratio 0.8 (1.1-2.2) L 04/28/17 03:15 HDL Cholesterol 27 mg/dL (40-59) L 04/20/17 03:48 Vancomycin Trough 39.7 mcg/mL (10-20) H* 04/21/17 12:50 Staphylococcus sp PCR DETECTED (Not Detect) A 04/20/17 03:48 Staph aureus (PCR) DETECTED (Not Detect) A 04/20/17 03:48 - Microbiology Findings Microbiology Findings: Microbiology, Last 48 Hours 04/27/17 13:52 Sputum Culture - Preliminary Sputum 04/22/17 12:35 Blood Culture - Final Peripheral Venipuncture No growth. 04/22/17 12:35 Blood Culture - Final Peripheral Venipuncture No growth. 04/27/17 07:17 Blood Culture - Preliminary Peripheral Venipuncture No growth. 04/27/17 07:17 Blood Culture - Preliminary Peripheral Venipuncture No growth. - Clinical Findings Intake & Output: Intake & Output 04/28/17 04/28/17 04/29/17 15:59 23:59 08:59 Intake Total 2584.8 / 2584.8 1301.9 / 1301.9 1509.3 / 1509.3 Output Total 1727 / 1727 2043 / 2043 1640 / 1640 Balance 857.8 / 857.8 -741.1 / -741.1 -130.7 / -130.7 - VTE Documentation of Mechanical Device: Intermittent pneumatic compression device Consult Discharge Plan - Plan Referrals: Kannan Hurley DO [Primary Care Provider] - Juan Lake [Family Provider] -
[2017-04-29 08:28] LABS: Hematocrit 22.8 % (37.5-50.1); Hemoglobin 7.3 g/dL (12.9-16.9); Mean Corpuscular Volume 87.4 fL (83.0-100.0); Nucleated Red Blood Cells 0.4 /100 WBC (0); Platelet Count 177 K/mcL (140-400); Red Blood Count 2.61 M/mcL (4.19-5.50); Red Cell Distribution Width 14.4 % (11.5-14.5)
[2017-04-29] MEDS: Aspirin 81 MG TAB.CHEW PO SCH (09:17)
[2017-04-29] MEDS: *HR* Ticagrelor 90 MG TABLET PO SCH ×2 (09:17→20:44)
[2017-04-29] MEDS: Chlorhexidine Rinse 15 ML MOUTHWASH MM SCH ×2 (09:18→20:44)
[2017-04-29] MEDS: Insulin DETEMIR 100 UNIT/ML X5UNITS SQ SCH (09:20)
[2017-04-29 09:36] LABS: Calcium 9.8 mg/dL (8.6-10.3); Potassium 4.7 mEq/L (3.5-5.1)
[2017-04-29 09:56] LABS: Eosinophils # 0.7 K/mcL (0.0-0.6); Monocytes # 0.3 K/mcL (0.0-1.3); Neutrophils # 13.9 K/mcL (1.6-8.9)
[2017-04-29 09:57] LABS: Platelet Estimate Normal (Normal); Toxic Granulation Present (Not Present)
--- NOTE | 2017-04-29 11:21 | Nephrology Progress Note ---
Date of Encounter: 04/29/17 Time of Encounter: 11:00 - Assessment and Plan (1) NANCY (acute kidney injury) Current Visit: Yes Status: Acute Pt remains anuric and [employer] dependent, Will continue CVVHDF. Goal of care discussed with nurse and critical care team UOP remains very poor at 28cc in the past 24hrs Will maintain even to negative fluid balance if hemodynamics stabilizes Continue anticoagulation with citrate protocol Continue to avoid nephrotoxins if possible Limit obligate fluids if possible (2) Acute respiratory failure with hypoxia Current Visit: Yes Status: Acute Vent management per critical care (3) Septic shock Current Visit: Yes Status: Acute Antibiotics per critical care team Subjective Principal diagnosis: Sepsis/Septic Shock Interval history: Pt seen and examined remaining off pressors with family at bedside. He remains sedated but tapering versed, propofol and fentanyl gtts. He also remains intubated and on CVVHDF. UOP remains minimal. Objective - Vital Signs Vital signs: Vital Signs Temp Pulse Resp BP Pulse Ox 04/29/17 11:13 29 156/65 97 04/29/17 11:00 109 30 138/66 98 04/29/17 10:00 102 31 134/66 98 04/29/17 09:57 24 120/56 98 04/29/17 09:00 101 24 131/59 97 04/29/17 08:03 23 135/59 97 04/29/17 08:00 102 23 119/51 96 04/29/17 07:00 99.0 F 101 23 118/61 98 04/29/17 06:15 23 99/56 97 04/29/17 06:00 104 23 107/59 97 04/29/17 05:00 108 23 116/62 95 04/29/17 04:00 99.8 F H 114 28 119/64 93 04/29/17 03:35 24 113/67 94 04/29/17 03:00 103 27 109/61 99 04/29/17 01:40 24 97/60 99 04/29/17 01:00 104 27 111/56 98 04/29/17 00:00 105 24 100/56 98 04/28/17 23:30 24 105/56 98 04/28/17 23:00 99.2 F 105 23 106/57 98 04/28/17 22:00 105 23 115/60 99 03/10/18 21:30 30 116/66 95 03/10/18 21:00 105 30 118/67 93 04/28/17 20:00 102 28 113/60 94 04/28/17 19:35 29 129/63 95 04/28/17 19:00 98.3 F 102 31 134/77 94 04/28/17 18:00 87 23 107/58 99 04/28/17 17:37 23 94/51 98 04/28/17 17:00 86 24 99/58 99 04/28/17 16:00 86 27 95/56 97 04/28/17 15:19 86 04/28/17 15:10 23 104/63 99 04/28/17 15:00 97.5 F L 83 24 107/62 98 04/28/17 14:00 82 22 93/58 99 04/28/17 13:00 84 22 108/61 99 04/28/17 12:00 78 22 88/57 100 04/28/17 11:08 22 100 04/28/17 11:05 86 04/28/17 11:00 97.5 F L 86 22 101/65 100 Intake and Output 04/28/17 04/29/17 04/29/17 22:59 07:59 15:59 Intake Total 1233.4 / 1233.4 Output Total 846 / 846 Balance 387.4 / 387.4 Intake: IV Fluids 984.4 / 984.4 Calcium Chloride 4,000 MG In 0. 750 / 750 9 % Sodium Chloride 1,000 ML @ 40 mls/hr CRRT [facility] Rx#: [id number] PrismaSATE BGK 4/2.5 5,000 ML @ 0 / 0 1500 mls/hr CRRT [facility] Rx#: [id number] FentaNYL (PF) 2,500 MCG In 25 / 25 Empty Bag 1 Each @ 50 MCG/HR 1 mls/hr IVC [facility] Rx#: [id number] Versed 50 MG In 0.9 % Sodium 109.4 / 109.4 Chloride 90 ML @ 2 MG/HR 4 mls/ hr IVC [facility] Rx#:[id number] Diprivan 1,000 mg In 100 ml @ 5 MCG/KG/MIN 3.015 mls/hr IVC . Q24H [facility] Rx#:[id number] Nafcillin 2,000 MG In 0.9 % 100 / 100 Sodium Chloride (Mini-Bag +) 100 ML @ 200 mls/hr IVPB Q4HR [facility] Rx#:[id number] Zosyn 3.375 GM In 0.9 % Sodium Chloride (Mini-Bag +) 100 ML @ 25 mls/hr IVPB Q8H [facility] Rx#: [id number] Oral 0 / 0 Tube Feeding 249 / 249 Output: Nahomy 846 / 846 Catheter 0 / 0 Other: Blood Glucose* 152 - General Appearance General appearance: Present: sedated on ventilator, intubated EENT: Present: ATNC Neck: Present: no JVD, supple Respiratory: Present: clear Cardiology: Present: edema (generalized), normal S1, normal S2 Dialysis Vascular Access: Venous Catheter (femoral) Gastrointestinal: Present: no tenderness, no guarding Integumentary: Present: warm and dry Additional Comments: intubated/sedated Musculoskeletal: Present: no deformities Additional Comments: intubated/sedated - Lab 05/01/17 04:15 05/01/17 04:15 Most recent lab results ABG pH 7.41 pH Units (7.32-7.45) 04/29/17 05:15 ABG pCO2 39 mmHg (35-45) 04/29/17 05:15 ABG pO2 78 mmHg (85-104) L 04/29/17 05:15 ABG HCO3 25 mEq/L (21-27) 04/29/17 05:15 ABG O2 Saturation 96 % (95-98) 04/29/17 05:15 Calcium 9.8 mg/dL (8.6-10.3) 04/29/17 08:04 Phosphorus 3.0 mg/dL (2.7-4.5) 04/27/17 03:49 Magnesium 2.1 mg/dL (1.6-2.6) 04/28/17 03:15 - VTE Documentation of Mechanical Device: Intermittent pneumatic compression device Consult Discharge Plan - Plan Referrals: Kannan Hurley DO [Primary Care Provider] - Juan Lake [Family Provider] -
[2017-04-29 13:50] LABS: ABG Ionized Calcium 1.22 mmol/L (1.15-1.35)
[2017-04-29] MEDS: *HR* Heparin 5,000 UNIT/ML VIAL IV PRN (13:56)
[2017-04-29] MEDS: EPINEPHrine 1 MG in 0.9 % Sodium Chloride 250 ML IVC SCH (19:27)
[2017-04-29] MEDS: VECURONIUM IVC SCH (19:28)
[2017-04-29] MEDS: Dexmedetomidine HCl 400 MCG/100 ML MLS IVC SCH (19:28)
[2017-04-29] MEDS: SODIUM CHLORIDE IVC SCH (19:28)
[2017-04-29 20:46] LABS: ABG Ionized Calcium 1.11 mmol/L (1.15-1.35)
[2017-04-29] MEDS: Norepinephrine 16 MG in D5% in Water 500 ML IVC SCH (22:58)
[2017-04-29 23:20] LABS: VBG Ionized Calcium 1.15 mmol/L (1.15-1.35)
[2017-04-30] MEDS: PrismaSATE BGK 4/2.5 5,000 ML CRRT SCH ×8 (00:31→21:09)
[2017-04-30] MEDS: Nafcillin 2,000 MG in 0.9 % Sodium Chloride Mini Bag 100 ML IVPB SCH ×6 (03:32→23:41)
[2017-04-30] MEDS: Lacri-Lube 3.5 GM TUBE BOTH EYES SCH ×6 (03:33→23:12)
[2017-04-30] MEDS: Insulin LISPRO 300 UNITS/3 ML VIAL SQ SCH ×6 (03:48→23:42)
[2017-04-30 04:55] LABS: ABG Base Excess 4 mEq/L (-2 to 3); ABG HCO3 29 mEq/L (21-27); ABG Oxygen Saturation 95 % (95-98); ABG PCO2 41 mmHg (35-45); ABG PH 7.45 pH Units (7.32-7.45); ABG PO2 71 mmHg (85-104); ABG TCO2 30 mEq/L (20-26); Blood Gas Modality PRVC; Blood Gas Respiration Rate 22; Blood Gas VT 450 cc
[2017-04-30 05:03] LABS: VBG Ionized Calcium 1.05 mmol/L (1.15-1.35)
[2017-04-30 05:28] LABS: Calcium 9.4 mg/dL (8.6-10.3); Potassium 4.3 mEq/L (3.5-5.1)
[2017-04-30 05:36] LABS: Basophils % 0.1 %; Eosinophils # 0.2 K/mcL (0.0-0.6); Eosinophils % 1.8 %; Hematocrit 21.8 % (37.5-50.1); Hemoglobin 6.9 g/dL (12.9-16.9); Immature Granulocytes % 7.4 % (0-4); Lymphocytes # 0.8 K/mcL (0.6-4.6); Lymphocytes % 6.3 %; Mean Corpuscular HGB Conc 31.7 g/dL (31.6-35.5); Mean Corpuscular Hemoglobin 27.6 pg (28.0-33.3); Mean Corpuscular Volume 87.2 fL (83.0-100.0); Mean Platelet Volume 9.5 fL (9.4-12.4); Monocytes # 0.8 K/mcL (0.0-1.3); Monocytes % 6.2 %; Nucleated Red Blood Cells 0.1 /100 WBC (0); Platelet Count 153 K/mcL (140-400); Red Cell Distribution Width 14.5 % (11.5-14.5); Segmented Neutrophils % 78.2 %
[2017-04-30 05:37] LABS: Neutrophils # 10.5 K/mcL (1.6-8.9)
[2017-04-30] MEDS: Calcium Chloride 4,000 MG in 0.9 % Sodium Chloride 1,000 ML CRRT SCH ×2 (05:54→14:56)
[2017-04-30] MEDS: FentaNYL (PF) 2,500 MCG in EMPTY BAG 1 EACH IVC SCH ×2 (05:54→17:40)
[2017-04-30] MEDS: Pantoprazole 40 MG VIAL IVP SCH ×2 (05:55→17:30)
[2017-04-30 06:20] LABS: Platelet Estimate Normal (Normal)
[2017-04-30] MEDS: *HR* Ticagrelor 90 MG TABLET PO SCH ×2 (07:51→20:13)
[2017-04-30] MEDS: Aspirin 81 MG TAB.CHEW PO SCH (07:56)
[2017-04-30] MEDS: Chlorhexidine Rinse 15 ML MOUTHWASH MM SCH ×2 (07:56→20:13)
[2017-04-30 08:36] LABS: VBG Ionized Calcium 1.14 mmol/L (1.15-1.35)
[2017-04-30 08:53] LABS: ABG Base Excess 14 mEq/L (-2 to 3); ABG HCO3 42 mEq/L (21-27); ABG Oxygen Saturation 97 % (95-98); ABG PCO2 60 mmHg (35-45); ABG PH 7.46 pH Units (7.32-7.45); ABG PO2 87 mmHg (85-104); ABG TCO2 44 mEq/L (20-26); Blood Gas Modality VC+; Blood Gas PEEP 5 cm H2O; Blood Gas Respiration Rate 16; Blood Gas VT 450 cc
[2017-04-30 09:09] LABS: ABG Base Excess 1 mEq/L (-2 to 3); ABG HCO3 29 mEq/L (21-27); ABG Oxygen Saturation 94 % (95-98); ABG PCO2 61 mmHg (35-45); ABG PH 7.28 pH Units (7.32-7.45); ABG PO2 82 mmHg (85-104); ABG TCO2 31 mEq/L (20-26); Blood Gas Modality VC+; Blood Gas PEEP 5 cm H2O; Blood Gas Respiration Rate 16; Blood Gas VT 450 cc
[2017-04-30 09:17] LABS: ABG Base Excess 3 mEq/L (-2 to 3); ABG HCO3 27 mEq/L (21-27); ABG Oxygen Saturation 96 % (95-98); ABG PCO2 37 mmHg (35-45); ABG PH 7.47 pH Units (7.32-7.45); ABG PO2 76 mmHg (85-104); ABG TCO2 28 mEq/L (20-26); Blood Gas Modality VC+; Blood Gas PEEP 5 cm H2O; Blood Gas Respiration Rate 16; Blood Gas VT 450 cc
[2017-04-30] MEDS: Insulin DETEMIR 100 UNIT/ML X5UNITS SQ SCH (09:18)
[2017-04-30] MEDS: VECURONIUM IVC SCH (09:19)
[2017-04-30] MEDS: EPINEPHrine 1 MG in 0.9 % Sodium Chloride 250 ML IVC SCH (09:19)
[2017-04-30] MEDS: Dexmedetomidine HCl 400 MCG/100 ML MLS IVC SCH (09:19)
[2017-04-30] MEDS: SODIUM CHLORIDE IVC SCH (09:19)
--- NOTE | 2017-04-30 11:50 | Pulmonology Progress Note ---
<Gely Tolbert M - Last Filed: 04/30/17 13:40> Date of Encounter: 04/30/17 Objective PUL Vital signs: Last Vital Signs Temp 98.9 F 04/30/17 12:00 Pulse 102 04/30/17 13:00 Resp 21 04/30/17 13:00 BP 154/67 04/30/17 13:00 Pulse Ox 99 04/30/17 13:00 Ventilator Settings Ventilator Settings: Ventilator Settings, Last 8 Hours Ventilator Mode VC+ Ventilator Mode VC+ Ventilator Mode VC+ Ventilator Mode VC+ Ventilator Mode VC+ Ventilator Mode CPAP Ventilator Mode CPAP Ventilator Mode VC+ Ventilator Tidal Volume 450 Setting Ventilator Tidal Volume 450 Setting Ventilator Tidal Volume 450 Setting Ventilator Tidal Volume 450 Setting Ventilator Tidal Volume 450 Setting Ventilator Tidal Volume 450 Setting Ventilator Tidal Volume 450 Setting Ventilator Tidal Volume 450 Setting Ventilator Respiratory Rate 16 Setting Ventilator Respiratory Rate 17 Setting Ventilator Respiratory Rate 16 Setting Ventilator Respiratory Rate 16 Setting Ventilator Respiratory Rate 16 Setting Ventilator Respiratory Rate 16 Setting Ventilator Respiratory Rate 22 Setting Actual Respiratory Rate 20 Actual Respiratory Rate 20 Actual Respiratory Rate 20 Actual Respiratory Rate 23 Actual Respiratory Rate 23 Actual Respiratory Rate 15 Actual Respiratory Rate 16 Actual Respiratory Rate 23 Positive End Expiratory 5 Pressure Positive End Expiratory 5 Pressure Positive End Expiratory 5 Pressure Positive End Expiratory 5 Pressure Positive End Expiratory 5 Pressure Positive End Expiratory 5 Pressure Positive End Expiratory 5 Pressure Positive End Expiratory 5 Pressure Peak Inspiratory Airway 22 Pressure Peak Inspiratory Airway 21 Pressure Peak Inspiratory Airway 23 Pressure Peak Inspiratory Airway 11 Pressure Peak Inspiratory Airway 11 Pressure Peak Inspiratory Airway 11 Pressure Peak Inspiratory Airway 11 Pressure Peak Inspiratory Airway 25 Pressure Results - Laboratory Findings CBC and BMP: 04/30/17 04:55 04/30/17 04:55 ABG ABG pH 7.47 pH Units (7.32-7.45) H D 04/30/17 09:14 ABG pCO2 37 mmHg (35-45) D 04/30/17 09:14 ABG pO2 76 mmHg (85-104) L 04/30/17 09:14 ABG O2 Saturation 96 % (95-98) 04/30/17 09:14 PT/INR, D-dimer PT 15.1 Seconds (9.4-12.1) H 04/26/17 04:00 D-Dimer 5447 ng/mLFEU (0-500) H 04/21/17 05:41 Abnormal lab findings: Abnormal lab results WBC 13.4 K/mcL (4.3-11.1) H 04/30/17 04:55 RBC 2.50 M/mcL (4.19-5.50) L 04/30/17 04:55 Hgb 6.9 g/dL (12.9-16.9) L 04/30/17 04:55 Hct 21.8 % (37.5-50.1) L 04/30/17 04:55 MCH 27.6 pg (28.0-33.3) L 04/30/17 04:55 Immature Gran % 7.4 % (0-4) H 04/30/17 04:55 Band Neutrophils % 8.0 % (0-4) H 04/29/17 07:46 Metamyelocytes % 4.0 % (0) H 04/29/17 07:46 Myelocytes % 5.0 % (0) H 04/27/17 09:30 Promyelocytes % 2.0 % (0) H 04/27/17 09:30 Blast Cells % 1.0 % (0) H 04/27/17 09:30 Neutrophils # 10.5 K/mcL (1.6-8.9) H 04/30/17 04:55 Nucleated RBCs/100 WBC 0.1 /100 WBC (0) H 04/30/17 04:55 Reactive Lymphocytes Present (Not Present) A 04/28/17 03:15 Toxic Granulation Present (Not Present) A 04/29/17 07:46 Toxic Vacuolation Present (Not Present) A 04/21/17 14:25 Immature Plt Fraction 9.4 % (1.1-6.1) H 04/23/17 03:00 PT 15.1 Seconds (9.4-12.1) H 04/26/17 04:00 Fibrinogen 583 mg/dL (169-393) H 04/21/17 12:50 D-Dimer 5447 ng/mLFEU (0-500) H 04/21/17 05:41 ABG pH 7.47 pH Units (7.32-7.45) H D 04/30/17 09:14 ABG pO2 76 mmHg (85-104) L 04/30/17 09:14 ABG Total CO2 28 mEq/L (20-26) H 04/30/17 09:14 VBG pO2 67 mmHg (25-50) H 04/27/17 06:26 BUN 52 mg/dL (8-23) H 04/30/17 04:55 Creatinine 3.09 mg/dL (0.70-1.30) H 04/30/17 04:55 Est GFR ( Amer) 25 (> 60) L 04/30/17 04:55 Est GFR (Non-Af Amer) 21 (> 60) L 04/30/17 04:55 Glucose 152 mg/dL (70-105) H 04/30/17 04:55 POC Glucose 222 (58-89) H 04/29/17 22:39 Venous Ioniz Calcium 1.14 mmol/L (1.15-1.35) L 04/30/17 08:33 Direct Bilirubin 0.3 mg/dL (0.0-0.2) H 04/28/17 03:15 Troponin I 4.23 ng/mL (< 0.04) H* 04/21/17 14:25 Serum Total Protein 5.8 g/dL (6.4-8.9) L 04/28/17 03:15 Albumin 2.5 g/dL (3.5-5.7) L 04/28/17 03:15 Albumin/Globulin Ratio 0.8 (1.1-2.2) L 04/28/17 03:15 HDL Cholesterol 27 mg/dL (40-59) L 04/20/17 03:48 Arterial Blood Ionized Calcium 1.11 mmol/L (1.15-1.35) L 04/29/17 20:42 Vancomycin Trough 39.7 mcg/mL (10-20) H* 04/21/17 12:50 Staphylococcus sp PCR DETECTED (Not Detect) A 04/20/17 03:48 Staph aureus (PCR) DETECTED (Not Detect) A 04/20/17 03:48 - Microbiology Findings Microbiology Findings: Microbiology, Last 48 Hours 04/27/17 13:52 Sputum Culture - Final Sputum Staphylococcus aureus 04/22/17 12:35 Blood Culture - Final Peripheral Venipuncture No growth. 04/22/17 12:35 Blood Culture - Final Peripheral Venipuncture No growth. 04/27/17 07:17 Blood Culture - Preliminary Peripheral Venipuncture No growth. 03/09/18 07:17 Blood Culture - Preliminary Peripheral Venipuncture No growth. - Clinical Findings Intake & Output: Intake & Output 04/29/17 04/30/17 04/30/17 23:59 07:59 15:59 Intake Total 1120.4 / 1120.4 1339.3 / 1339.3 646 / 646 Output Total 1492 / 1492 1537 / 1537 1763 / 1763 Balance -371.6 / -371.6 -197.7 / -197.7 -1117 / -1117 Consult Discharge Plan - Plan Referrals: Kannan Hurley DO [Primary Care Provider] - Juan Lake [Family Provider] - - Attending Attestation I examined this patient and my medical decision-making was reviewed with the Resident Physician. I agree with the documented findings, disposition and treatment plan as described except to the extent set forth below. Patient seen and examined. Labs, radiology, chart personally reviewed. 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 Pulmonary: Patient has evidence of intrinsic PEEP and changed his vent setting with lowering his respiratory rate and increased fluid removal with his chest x- ray to my interpretation evidence of volume overload and hopefully that will help expedite to liberate him from the ventilator. May needed follow-up ABG. Cardiovascular: stable GI: Nutrition per dietary and GI prophylaxis per routine Heme: DVT prophylaxis per routine ID: Continue antibiotics and plan to de-escalation. Patient is febrile and that is effecting his breathing and will monitor, if continues to be febrile then infectious versus noninfectious etiologies for the fever in the ICU needs to be investigated. Renal; start removing fluid and nephrology follow-up. Endorcine: blood glucose is monitored Lines: all lines checked and no evidence of infections Skin: skin care to prevent pressure ulcers per nursing routine care I spent 35 min of Critical Care time with this patient. It involved decision making of high complexity to assess, manipulate, and support vital organ system failure and/or to prevent further life threatening deterioration of the patient' s condition. The time involved in the performance of separately reportable procedures was not counted toward critical care time. <Sukhwinder Estevez - Last Filed: 04/30/17 13:49> Date of Encounter: 04/30/17 Time of Encounter: 09:00 Assessment and Plan (1) Acute respiratory failure with hypoxia Current Visit: Yes Status: Acute - Acute respiratory failure in the setting of cardiac arrest likely secondary to fluid overload versus ARDS picture - Currently on ventilator after attempting CPAP trials this morning and failing. - Arterial blood gas within normal limits with mildly elevated bicarbonate of 29 Plan - Continue to attempt weaning of ventilator as we treat underlying fluid overload as below (2) Septic shock Current Visit: Yes Status: Acute - Presented with septic shock secondary to methicillin sensitive Staphylococcus aureus bacteremia - Most recent blood cultures obtained 04/27 revealed no growth, sputum cultures again growing staph aureus resistant to fluoroquinolones - Lactic acidosis resolved in stable. Not requiring any vasopressors at this time - Antibiotic coverage: Completed 3 days of meropenem, 5 days of Zosyn, currently on nafcillin day #8 - Patient did notably have a fever this morning of 100.6 which was treated with Tylenol. This may be secondary to increasing infection however it is also likely that this may be a stress reaction as a result from attempting to wean the ventilator. We will also consider rule out DVT. On SCDs due to anemia, abdominal hematoma - Possible source of pneumonia versus left hand chronic wound - Chest x-ray showing bilateral interstitial airspace opacities, possibly secondary to fluid overload versus pneumonia Plan - Continue nafcillin, day #8 - Attempts fluid removal starting today at 100 mL per hour with CVVHD - Continue to monitor blood culture results until final (3) Cardiac arrest Current Visit: Yes Status: Resolved Status post cardiac arrest, PEA Management of underlying conditions as elsewhere (4) NANCY (acute kidney injury) Current Visit: Yes Status: Acute - BUNs/creatinine of 52/3.09, mildly improved from previous of 3.14 - Possibly secondary to hypoperfusion in cardiac arrest versus third spacing of fluid - Currently anuric, nephrology following Plan -Continue CVVHD as tolerated, increase fluid removal rate as above (5) Skin infection Current Visit: Yes Status: Acute - Left wrist dorsal surface with chronic-appearing wound without discharge, drainage, erythema. It does have a eschar overlying. Limits notably warm, however contralateral arm is also warm. - Wound cultures revealed staph aureus which was methicillin sensitive - Possible source of bacteremia Plan - Continue to monitor for increased fevers, increased warmth which were concerning for osteomyelitis and will require a CT scan - Continue nafcillin day #8 - Tylenol when necessary fever (6) Hematoma Current Visit: Yes Status: Acute Abdominal hematoma which has been followed by surgery No current plans for prevention at this time We will however hold off on chemical anticoagulation, continue SCDs (7) Anemia Current Visit: Yes Status: Acute - H/H of 6.9/21.8, mildly decreased from yesterday of 7.3 - Patient has been notably anemic since presentation. This may be secondary to intra-abdominal hematoma which is been followed by general surgery - Patient also may have a delusional effect given hypervolemic status - No obvious source of bleed Plan - We will continue to monitor at this time as patient is unable to express symptomatology - We will begin fluid removal through dialysis as above which will hemoconcentrate him - Continue to monitor with daily labs Qualifiers: Anemia type: unspecified type Qualified Code(s): D64.9 - Anemia, unspecified (8) Ventilator dependence Current Visit: Yes Status: Acute Continues to be ventilator dependence, after attempting weaning trial this morning - Continue ventilator with goal to wean in near future (9) Diabetes mellitus Current Visit: Yes Status: Chronic - Blood sugar of 152 - Hemoglobin A1c of 7.8% in March 2017 - He is notably requiring a large amount insulin, we will increase sliding scale to moderate - Every 6 blood sugar checks Qualifiers: Diabetes mellitus type: type 2 Diabetes mellitus 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 He remains intubated at this time and is unable to provide a subjective history, however he does make eye contact spontaneously. He does not however follow commands. His and daughter are present at bedside, all questions were answered. We did attempt a ventilation weaning trial this morning however patient did not tolerate due to breath stacking and concern for protecting airway and not following commands. Ventilator was restarted. Objective PUL Vital signs: Last Vital Signs Temp 99.7 F H 04/30/17 10:00 Pulse 99 04/30/17 11:36 Resp 22 04/30/17 11:05 BP 117/60 04/30/17 11:00 Pulse Ox 98 04/30/17 11:05 Gen.: Vitals noted. No acute distress. Intubated and sedated. Doesn't respond to commands but does spontaneously open eyes. HEENT: PERRL/EOMI, Endotracheal tube in appropriate position. Cardiac: Tachycardic, regular rhythm, evidence of systolic murmur, +S1/S2 Pulmonary: Course wheezes on auscultation, most prominent on right. Tolerating ventilator Abdomen: soft, nontender, hypoactive bowel sounds, no guarding Extremities: 2+ BLE pitting edema, no cyanosis or clubbing Neuro: Opens eyes spontaneously, GCS 6 on sedation. Skin: Warm to touch, no evidence of erythema, lesion on left wrist with eschar, no obvious drainage or infection. Ventilator Settings Ventilator Settings: Ventilator Settings, Last 8 Hours Ventilator Mode VC+ Ventilator Mode VC+ Ventilator Mode VC+ Ventilator Mode CPAP Ventilator Mode CPAP Ventilator Mode VC+ Ventilator Mode VC+ Ventilator Mode VC+ Ventilator Mode VC+ Ventilator Tidal Volume 450 Setting Ventilator Tidal Volume 450 Setting Ventilator Tidal Volume 450 Setting Ventilator Tidal Volume 450 Setting Ventilator Tidal Volume 450 Setting Ventilator Tidal Volume 450 Setting Ventilator Tidal Volume 450 Setting Ventilator Tidal Volume 450 Setting Ventilator Tidal Volume 450 Setting Ventilator Respiratory Rate 16 Setting Ventilator Respiratory Rate 16 Setting Ventilator Respiratory Rate 16 Setting Ventilator Respiratory Rate 16 Setting Ventilator Respiratory Rate 22 Setting Ventilator Respiratory Rate 22 Setting Ventilator Respiratory Rate 22 Setting Ventilator Respiratory Rate 22 Setting Actual Respiratory Rate 20 Actual Respiratory Rate 23 Actual Respiratory Rate 23 Actual Respiratory Rate 15 Actual Respiratory Rate 16 Actual Respiratory Rate 23 Actual Respiratory Rate 22 Actual Respiratory Rate 26 Positive End Expiratory 5 Pressure Positive End Expiratory 5 Pressure Positive End Expiratory 5 Pressure Positive End Expiratory 5 Pressure Positive End Expiratory 5 Pressure Positive End Expiratory 5 Pressure Positive End Expiratory 5 Pressure Positive End Expiratory 5 Pressure Positive End Expiratory 5 Pressure Peak Inspiratory Airway 23 Pressure Peak Inspiratory Airway 11 Pressure Peak Inspiratory Airway 11 Pressure Peak Inspiratory Airway 11 Pressure Peak Inspiratory Airway 11 Pressure Peak Inspiratory Airway 25 Pressure Peak Inspiratory Airway 29 Pressure Peak Inspiratory Airway 28 Pressure Results - Laboratory Findings CBC and BMP: 04/30/17 04:55 04/30/17 04:55 ABG ABG pH 7.47 pH Units (7.32-7.45) H D 04/30/17 09:14 ABG pCO2 37 mmHg (35-45) D 04/30/17 09:14 ABG pO2 76 mmHg (85-104) L 04/30/17 09:14 ABG O2 Saturation 96 % (95-98) 04/30/17 09:14 PT/INR, D-dimer PT 15.1 Seconds (9.4-12.1) H 04/26/17 04:00 D-Dimer 5447 ng/mLFEU (0-500) H 04/21/17 05:41 Abnormal lab findings: Abnormal lab results WBC 13.4 K/mcL (4.3-11.1) H 04/30/17 04:55 RBC 2.50 M/mcL (4.19-5.50) L 04/30/17 04:55 Hgb 6.9 g/dL (12.9-16.9) L 04/30/17 04:55 Hct 21.8 % (37.5-50.1) L 04/30/17 04:55 MCH 27.6 pg (28.0-33.3) L 04/30/17 04:55 Immature Gran % 7.4 % (0-4) H 04/30/17 04:55 Band Neutrophils % 8.0 % (0-4) H 04/29/17 07:46 Metamyelocytes % 4.0 % (0) H 04/29/17 07:46 Myelocytes % 5.0 % (0) H 04/27/17 09:30 Promyelocytes % 2.0 % (0) H 04/27/17 09:30 Blast Cells % 1.0 % (0) H 04/27/17 09:30 Neutrophils # 10.5 K/mcL (1.6-8.9) H 04/30/17 04:55 Nucleated RBCs/100 WBC 0.1 /100 WBC (0) H 04/30/17 04:55 Reactive Lymphocytes Present (Not Present) A 04/28/17 03:15 Toxic Granulation Present (Not Present) A 04/29/17 07:46 Toxic Vacuolation Present (Not Present) A 04/21/17 14:25 Immature Plt Fraction 9.4 % (1.1-6.1) H 04/23/17 03:00 PT 15.1 Seconds (9.4-12.1) H 04/26/17 04:00 Fibrinogen 583 mg/dL (169-393) H 04/21/17 12:50 D-Dimer 5447 ng/mLFEU (0-500) H 04/21/17 05:41 ABG pH 7.47 pH Units (7.32-7.45) H D 04/30/17 09:14 ABG pO2 76 mmHg (85-104) L 04/30/17 09:14 ABG Total CO2 28 mEq/L (20-26) H 04/30/17 09:14 VBG pO2 67 mmHg (25-50) H 04/27/17 06:26 BUN 52 mg/dL (8-23) H 04/30/17 04:55 Creatinine 3.09 mg/dL (0.70-1.30) H 04/30/17 04:55 Est GFR ( Amer) 25 (> 60) L 04/30/17 04:55 Est GFR (Non-Af Amer) 21 (> 60) L 04/30/17 04:55 Glucose 152 mg/dL (70-105) H 04/30/17 04:55 POC Glucose 222 (58-89) H 04/29/17 22:39 Venous Ioniz Calcium 1.14 mmol/L (1.15-1.35) L 04/30/17 08:33 Direct Bilirubin 0.3 mg/dL (0.0-0.2) H 04/28/17 03:15 Troponin I 4.23 ng/mL (< 0.04) H* 04/21/17 14:25 Serum Total Protein 5.8 g/dL (6.4-8.9) L 04/28/17 03:15 Albumin 2.5 g/dL (3.5-5.7) L 04/28/17 03:15 Albumin/Globulin Ratio 0.8 (1.1-2.2) L 04/28/17 03:15 HDL Cholesterol 27 mg/dL (40-59) L 04/20/17 03:48 Arterial Blood Ionized Calcium 1.11 mmol/L (1.15-1.35) L 04/29/17 20:42 Vancomycin Trough 39.7 mcg/mL (10-20) H* 04/21/17 12:50 Staphylococcus sp PCR DETECTED (Not Detect) A 04/20/17 03:48 Staph aureus (PCR) DETECTED (Not Detect) A 04/20/17 03:48 - Microbiology Findings Microbiology Findings: Microbiology, Last 48 Hours 04/27/17 13:52 Sputum Culture - Final Sputum Staphylococcus aureus 04/22/17 12:35 Blood Culture - Final Peripheral Venipuncture No growth. 04/22/17 12:35 Blood Culture - Final Peripheral Venipuncture No growth. 04/27/17 07:17 Blood Culture - Preliminary Peripheral Venipuncture No growth. 04/27/17 07:17 Blood Culture - Preliminary Peripheral Venipuncture No growth. - Clinical Findings Intake & Output: Intake & Output 04/29/17 04/30/17 04/30/17 23:59 07:59 15:59 Intake Total 1120.4 / 1120.4 1339.3 / 1339.3 389 / 389 Output Total 1492 / 1492 1537 / 1537 1223 / 1223 Balance -371.6 / -371.6 -197.7 / -197.7 -834 / -834 - VTE Documentation of Mechanical Device: Intermittent pneumatic compression device
[2017-04-30 14:32] LABS: VBG Ionized Calcium 1.02 mmol/L (1.15-1.35)
[2017-04-30] MEDS ORDERED: *HR* Heparin 5,000 UNIT/ML VIAL ONE (16:16)
[2017-04-30 16:20] LABS: VBG Ionized Calcium 0.98 mmol/L (1.15-1.35)
--- NOTE | 2017-04-30 18:52 | Nephrology Progress Note ---
Date of Encounter: 04/30/17 Time of Encounter: 11:00 - Assessment and Plan (1) NANCY (acute kidney injury) Current Visit: Yes Status: Acute Pt remains anuric and MANAGER GLOBAL dependent, Will continue CVVHDF. Goal of care discussed with nurse and critical care team UOP remains poor at 10cc in the past 24hrs Will maintain a negative fluid balance given stable hemodynamics Continue anticoagulation with citrate protocol Continue to avoid nephrotoxins if possible Limit obligate fluids if possible (2) Acute respiratory failure with hypoxia Current Visit: Yes Status: Acute Vent management per critical acre (3) Septic shock Current Visit: Yes Status: Acute Antibiotics per critical care team Subjective Principal diagnosis: Sepsis/Septic Shock Interval history: Pt seen and examined remaining off pressors and less sedation overall and opens eyes. Hemodynamics stable. He also remains intubated and on CVVHDF. UOP remains minimal. Objective - Vital Signs Vital signs: Vital Signs Temp Pulse Resp BP Pulse Ox 04/30/17 18:08 18 96 04/30/17 18:00 98.4 F 102 23 148/76 96 04/30/17 17:00 101 24 139/70 97 04/30/17 16:15 20 95 04/30/17 16:00 99.9 F H 101 21 135/59 94 04/30/17 15:44 99 04/30/17 15:00 100 19 137/60 96 04/30/17 14:42 18 97 04/30/17 14:00 104 21 165/68 98 04/30/17 13:00 102 21 154/67 99 04/30/17 12:35 21 98 04/30/17 12:00 98.9 F 99 19 134/64 99 04/30/17 11:36 99 04/30/17 11:05 22 98 04/30/17 11:00 101 19 117/60 98 04/30/17 10:00 99.7 F H 106 20 139/61 99 04/30/17 09:00 107 23 128/54 97 04/30/17 08:14 21 94 04/30/17 08:00 100.6 F H 110 22 203/78 94 04/30/17 07:00 108 15 165/78 95 04/30/17 06:35 16 141/77 96 04/30/17 06:00 105 26 141/69 94 04/30/17 05:00 102 22 129/63 97 03/12/18 04:00 100 26 140/56 97 04/30/17 03:08 23 123/63 97 04/30/17 03:00 99 24 140/59 97 04/30/17 02:00 101 26 141/60 97 04/30/17 01:20 26 184/66 96 04/30/17 01:00 101 29 162/57 93 04/30/17 00:00 98.4 F 101 26 133/59 97 04/29/17 23:15 25 143/57 98 04/29/17 23:00 96 23 132/58 98 04/29/17 22:00 98 23 137/56 98 04/29/17 21:10 22 141/55 96 04/29/17 21:00 101 31 117/55 96 04/29/17 20:00 98.5 F 100 27 136/57 96 04/29/17 19:40 23 143/61 96 04/29/17 19:00 97 25 156/62 97 Intake and Output 04/30/17 04/30/17 04/30/17 07:59 15:59 23:59 Intake Total 1339.3 / 1339.3 1819 / 1819 410 / 410 Output Total 1537 / 1537 2663 / 2663 1096 / 1096 Balance -197.7 / -197.7 -844 / -844 -686 / -686 Intake: IV Fluids 1075.3 / 1075.3 1341 / 1341 204 / 204 Calcium Chloride 4,000 MG In 0. 752 / 752 1040 / 1040 0 / 0 9 % Sodium Chloride 1,000 ML @ 40 mls/hr CRRT CONT CECILIO Rx#: [id number] PrismaSATE BGK 4/2.5 5,000 ML @ 0 / 0 0 / 0 1500 mls/hr CRRT CONT CECILIO Rx#: [id number] FentaNYL (PF) 2,500 MCG In 48.3 / 48.3 16 / 16 34 / 34 Empty Bag 1 Each @ 50 MCG/HR 1 mls/hr IVC CONT CECILIO Rx#: [id number] Diprivan 1,000 mg In 100 ml @ 5 75 / 75 75 / 75 70 / 70 MCG/KG/MIN 3.015 mls/hr IVC . Q24H CECILIO Rx#:[id number] Nafcillin 2,000 MG In 0.9 % 200 / 200 210 / 210 100 / 100 Sodium Chloride (Mini-Bag +) 100 ML @ 200 mls/hr IVPB Q4HR [facility]EC[facility] Rx#:[id number] Tube Feeding 264 / 264 418 / 418 206 / 206 Free Water 60 / 60 Output: Nahomy 1517 / 1517 2146 / 2146 946 / 946 Rectal Tube 500 / 500 150 / 150 Catheter 0 / 0 Other: Stool Consistency liquid liquid Stool Color Brown Brown Blood Glucose* 209 198 - General Appearance General appearance: Present: sedated on ventilator, intubated EENT: Present: ATNC Neck: Present: no JVD Respiratory: Present: clear Cardiology: Present: edema (generalized), normal S1, normal S2 Dialysis Vascular Access: Venous Catheter (temp femoral) Gastrointestinal: Present: no tenderness, no guarding Integumentary: Present: warm and dry Additional Comments: opens eyes but not responsive otherwise Musculoskeletal: Present: no deformities Additional Comments: Intubated/sedated - Lab 05/01/17 04:15 05/01/17 04:15 Most recent lab results ABG pH 7.47 pH Units (7.32-7.45) H D 04/30/17 09:14 ABG pCO2 37 mmHg (35-45) D 04/30/17 09:14 ABG pO2 76 mmHg (85-104) L 04/30/17 09:14 ABG HCO3 27 mEq/L (21-27) 04/30/17 09:14 ABG O2 Saturation 96 % (95-98) 04/30/17 09:14 Calcium 9.4 mg/dL (8.6-10.3) 04/30/17 04:55 Phosphorus 3.0 mg/dL (2.7-4.5) 04/27/17 03:49 Magnesium 2.1 mg/dL (1.6-2.6) 04/28/17 03:15 - VTE Documentation of Mechanical Device: Intermittent pneumatic compression device Consult Discharge Plan - Plan Referrals: Kannan Hurley DO [Primary Care Provider] - Juan Lake [Family Provider] -
[2017-04-30 19:27] LABS: VBG Ionized Calcium 1.02 mmol/L (1.15-1.35)
[2017-04-30 21:17] LABS: ABG Ionized Calcium 1.22 mmol/L (1.15-1.35)
[2017-04-30] MEDS: Norepinephrine 16 MG in D5% in Water 500 ML IVC SCH (22:21)
[2017-04-30 23:06] LABS: ABG Ionized Calcium 1.26 mmol/L (1.15-1.35)
[2017-05-01 01:30] LABS: ABG Ionized Calcium 1.25 mmol/L (1.15-1.35)
[2017-05-01] MEDS: Calcium Chloride 4,000 MG in 0.9 % Sodium Chloride 1,000 ML CRRT SCH ×2 (01:42→22:02)
[2017-05-01] MEDS: PrismaSATE BGK 4/2.5 5,000 ML CRRT SCH ×6 (01:51→21:35)
[2017-05-01] MEDS: Lacri-Lube 3.5 GM TUBE BOTH EYES SCH ×2 (02:59→08:44)
[2017-05-01 03:07] LABS: ABG Ionized Calcium 1.26 mmol/L (1.15-1.35)
[2017-05-01] MEDS: Insulin LISPRO 300 UNITS/3 ML VIAL SQ SCH ×5 (03:09→20:23)
[2017-05-01] MEDS: Nafcillin 2,000 MG in 0.9 % Sodium Chloride Mini Bag 100 ML IVPB SCH ×6 (03:10→23:25)
[2017-05-01 04:36] LABS: Basophils % 0.8 %; Eosinophils # 0.4 K/mcL (0.0-0.6); Eosinophils % 8.5 %; Hematocrit 23.1 % (37.5-50.1); Immature Granulocytes % 0.4 % (0-4); Lymphocytes # 0.8 K/mcL (0.6-4.6); Lymphocytes % 16.5 %; Mean Corpuscular HGB Conc 30.3 g/dL (31.6-35.5); Mean Corpuscular Hemoglobin 27.9 pg (28.0-33.3); Mean Platelet Volume 11.1 fL (9.4-12.4); Monocytes # 0.3 K/mcL (0.0-1.3); Monocytes % 6.6 %; Neutrophils # 3.3 K/mcL (1.6-8.9); Platelet Count 151 K/mcL (140-400); Red Blood Count 2.51 M/mcL (4.19-5.50); Red Cell Distribution Width 15.5 % (11.5-14.5); Segmented Neutrophils % 67.2 %
[2017-05-01] MEDS: FentaNYL (PF) 2,500 MCG in EMPTY BAG 1 EACH IVC SCH (04:55)
[2017-05-01] MEDS: Pantoprazole 40 MG VIAL IVP SCH ×2 (04:57→16:54)
[2017-05-01 04:58] LABS: ABG Base Excess 2 mEq/L (-2 to 3); ABG HCO3 26 mEq/L (21-27); ABG Oxygen Saturation 92 % (95-98); ABG PCO2 37 mmHg (35-45); ABG PH 7.46 pH Units (7.32-7.45); ABG PO2 60 mmHg (85-104); ABG TCO2 27 mEq/L (20-26); Blood Gas Modality VC; Blood Gas PEEP 5 cm H2O; Blood Gas Respiration Rate 16; Blood Gas VT 450 cc
[2017-05-01 05:12] LABS: Calcium 7.8 mg/dL (8.6-10.3); Potassium 3.5 mEq/L (3.5-5.1)
[2017-05-01 05:43] LABS: VBG HCO3 25 mEq/L (21-27); VBG Ionized Calcium 1.25 mmol/L (1.15-1.35); VBG PCO2 36 mmHg (41-51); VBG PH 7.44 pH Units (7.32-7.42); VBG PO2 157 mmHg (25-50)
[2017-05-01 07:15] LABS: VBG Ionized Calcium 1.23 mmol/L (1.15-1.35)
--- NOTE | 2017-05-01 07:32 | Pulmonology Progress Note ---
<DidiTanishamissy M - Last Filed: 05/01/17 08:43> Date of Encounter: 05/01/17 Objective PUL Vital signs: Last Vital Signs Temp 98.5 F 05/01/17 08:00 Pulse 116 05/01/17 08:00 Resp 24 05/01/17 08:00 BP 164/73 05/01/17 08:00 Pulse Ox 91 05/01/17 08:00 Ventilator Settings Ventilator Settings: Ventilator Settings, Last 8 Hours Ventilator Mode VC+ Ventilator Mode VC+ Ventilator Mode VC+ Ventilator Mode VC+ Ventilator Mode VC+ Ventilator Mode VC+ Ventilator Mode VC+ Ventilator Mode VC+ Ventilator Mode VC+ Ventilator Mode VC+ Ventilator Tidal Volume 450 Setting Ventilator Tidal Volume 450 Setting Ventilator Tidal Volume 450 Setting Ventilator Tidal Volume 450 Setting Ventilator Tidal Volume 450 Setting Ventilator Tidal Volume 450 Setting Ventilator Tidal Volume 450 Setting Ventilator Tidal Volume 450 Setting Ventilator Tidal Volume 450 Setting Ventilator Tidal Volume 450 Setting Ventilator Respiratory Rate 16 Setting Ventilator Respiratory Rate 16 Setting Ventilator Respiratory Rate 16 Setting Ventilator Respiratory Rate 16 Setting Ventilator Respiratory Rate 16 Setting Ventilator Respiratory Rate 16 Setting Ventilator Respiratory Rate 16 Setting Ventilator Respiratory Rate 16 Setting Ventilator Respiratory Rate 16 Setting Ventilator Respiratory Rate 16 Setting Actual Respiratory Rate 22 Actual Respiratory Rate 22 Actual Respiratory Rate 20 Positive End Expiratory 5 Pressure Positive End Expiratory 5 Pressure Positive End Expiratory 5 Pressure Positive End Expiratory 5 Pressure Positive End Expiratory 5 Pressure Positive End Expiratory 5 Pressure Positive End Expiratory 5 Pressure Positive End Expiratory 5 Pressure Positive End Expiratory 5 Pressure Positive End Expiratory 5 Pressure Peak Inspiratory Airway 18 Pressure Peak Inspiratory Airway 15 Pressure Peak Inspiratory Airway 18 Pressure Results - Laboratory Findings CBC and BMP: 05/01/17 04:15 05/01/17 04:15 ABG ABG pH 7.46 pH Units (7.32-7.45) H 05/01/17 04:55 ABG pCO2 37 mmHg (35-45) 05/01/17 04:55 ABG pO2 60 mmHg (85-104) L 05/01/17 04:55 ABG O2 Saturation 92 % (95-98) L 05/01/17 04:55 PT/INR, D-dimer PT 15.1 Seconds (9.4-12.1) H 04/26/17 04:00 D-Dimer 5447 ng/mLFEU (0-500) H 04/21/17 05:41 Abnormal lab findings: Abnormal lab results RBC 2.51 M/mcL (4.19-5.50) L 05/01/17 04:15 Hgb 7.0 g/dL (12.9-16.9) L 05/01/17 04:15 Hct 23.1 % (37.5-50.1) L 05/01/17 04:15 MCH 27.9 pg (28.0-33.3) L 05/01/17 04:15 MCHC 30.3 g/dL (31.6-35.5) L 05/01/17 04:15 RDW 15.5 % (11.5-14.5) H 05/01/17 04:15 Band Neutrophils % 8.0 % (0-4) H 04/29/17 07:46 Metamyelocytes % 4.0 % (0) H 04/29/17 07:46 Myelocytes % 5.0 % (0) H 04/27/17 09:30 Promyelocytes % 2.0 % (0) H 04/27/17 09:30 Blast Cells % 1.0 % (0) H 04/27/17 09:30 Nucleated RBCs/100 WBC 0.1 /100 WBC (0) H 04/30/17 04:55 Reactive Lymphocytes Present (Not Present) A 04/28/17 03:15 Toxic Granulation Present (Not Present) A 04/29/17 07:46 Toxic Vacuolation Present (Not Present) A 04/21/17 14:25 Immature Plt Fraction 9.4 % (1.1-6.1) H 04/23/17 03:00 PT 15.1 Seconds (9.4-12.1) H 04/26/17 04:00 Fibrinogen 583 mg/dL (169-393) H 04/21/17 12:50 D-Dimer 5447 ng/mLFEU (0-500) H 04/21/17 05:41 ABG pH 7.46 pH Units (7.32-7.45) H 05/01/17 04:55 ABG pO2 60 mmHg (85-104) L 05/01/17 04:55 ABG Total CO2 27 mEq/L (20-26) H 05/01/17 04:55 ABG O2 Saturation 92 % (95-98) L 05/01/17 04:55 VBG pH 7.44 pH Units (7.32-7.42) H 05/01/17 05:37 VBG pCO2 36 mmHg (41-51) L 05/01/17 05:37 VBG pO2 157 mmHg (25-50) H 05/01/17 05:37 Chloride 114 mEq/L (98-107) H 05/01/17 04:15 Carbon Dioxide 22 mEq/L (23-29) L 05/01/17 04:15 BUN 55 mg/dL (8-23) H 05/01/17 04:15 Creatinine 4.12 mg/dL (0.70-1.30) H 05/01/17 04:15 Est GFR ( Amer) 18 (> 60) L 05/01/17 04:15 Est GFR (Non-Af Amer) 15 (> 60) L 05/01/17 04:15 Glucose 141 mg/dL (70-105) H 05/01/17 04:15 POC Glucose 245 (58-89) H 04/30/17 23:29 Calculated Osmolality 311 (280-300) H 05/01/17 04:15 Calcium 7.8 mg/dL (8.6-10.3) L 05/01/17 04:15 Direct Bilirubin 0.3 mg/dL (0.0-0.2) H 04/28/17 03:15 Troponin I 4.23 ng/mL (< 0.04) H* 04/21/17 14:25 Serum Total Protein 5.8 g/dL (6.4-8.9) L 04/28/17 03:15 Albumin 2.5 g/dL (3.5-5.7) L 04/28/17 03:15 Albumin/Globulin Ratio 0.8 (1.1-2.2) L 04/28/17 03:15 HDL Cholesterol 27 mg/dL (40-59) L 04/20/17 03:48 Vancomycin Trough 39.7 mcg/mL (10-20) H* 04/21/17 12:50 Staphylococcus sp PCR DETECTED (Not Detect) A 04/20/17 03:48 Staph aureus (PCR) DETECTED (Not Detect) A 04/20/17 03:48 - Microbiology Findings Microbiology Findings: Microbiology, Last 48 Hours 04/27/17 13:52 Sputum Culture - Final Sputum Staphylococcus aureus - Clinical Findings Intake & Output: Intake & Output 04/30/17 05/01/17 05/01/17 23:59 07:59 15:59 Intake Total 1327 / 1327 1457 / 1457 0 / 0 Output Total 2906 / 2906 3207 / 3207 0 / 0 Balance -1579 / -1579 -1750 / -1750 0 / 0 Weight 94.1 kg Consult Discharge Plan - Plan Referrals: Kannan Hurley DO [Primary Care Provider] - Juan Lake [Family Provider] - - Attending Attestation I examined this patient and my medical decision-making was reviewed with the Resident Physician. I agree with the documented findings, disposition and treatment plan as described except to the extent set forth below. Patient seen and examined. Labs, radiology, chart personally reviewed. Agree with resident's history and physical, assessment, plan with following comments: SOFTWARE DEVELOPMENT INTERN: Patient follows commands, Pulmonary: Acceptable oxygenation and ventilation and was successfully extubated. Discussed with the family at the bedside. Cardiovascular: stable, however he has episodes of blood pressure changes. GI: Nutrition per dietary and GI prophylaxis per routine Heme: DVT prophylaxis per routine ID: Continue antibiotics and plan to de-escalation Renal; urine out put and renal funtion reviewed. Patient started on Nahomy and maybe he will be able to tolerate intermittent hemodialysis. Nephrology follow- up. Endorcine: blood glucose is monitored Lines: all lines checked and no evidence of infections Skin: skin care to prevent pressure ulcers per nursing routine care Continue monitoring ICU <[email or web address] - Last Filed: 05/01/17 10:44> Date of Encounter: 05/01/17 Time of Encounter: 07:32 Assessment and Plan (1) Acute respiratory failure with hypoxia Current Visit: Yes Status: Acute - Acute respiratory failure in the setting of cardiac arrest likely secondary to fluid overload versus ARDS picture - Tolerated CPAP trial this morning without complaint, successfully extubated at 07 15. We will continue to monitor for improvement. - Currently tolerating oxygen via 3L nasal cannula in low 90s - Arterial blood gas within normal limits with mild acute respiratory alkalosis Plan - Continue to monitor and treat underlying causes of respiratory failure as below - Encourage incentive spirometry, sitting up in chair (2) Septic shock Current Visit: Yes Status: Acute - Presented with septic shock secondary to methicillin sensitive Staphylococcus aureus bacteremia - Most recent blood cultures obtained revealed no growth, sputum cultures again growing staph aureus resistant to fluoroquinolones - Lactic acidosis resolved in stable. Not requiring any vasopressors at this time - Antibiotic coverage: Completed 3 days of meropenem, 5 days of Zosyn, currently on nafcillin day #9 - Afebrile overnight however did have an elevated temperature of 99.9. We will also consider rule out DVT. On SCDs due to anemia, abdominal hematoma - Possible source of pneumonia versus left hand chronic wound - Chest x-ray showing bilateral interstitial airspace opacities, possibly secondary to fluid overload versus pneumonia Plan - Continue nafcillin, day #9, plan for duration of 21 days - Attempts fluid removal starting 04/30/17 at 100 mL per hour with CVVHD - Continue to monitor blood culture results until final (3) Cardiac arrest Current Visit: Yes Status: Resolved Status post cardiac arrest, PEA Management of underlying conditions as elsewhere (4) NANCY (acute kidney injury) Current Visit: Yes Status: Acute - BUNs/creatinine of 55/4.12, worsened from previous of 3.09 - He has been receiving continuous venovenous hemodialysis. Decrease in creatinine possibly secondary to taking off fluids - Possibly secondary to hypoperfusion in cardiac arrest versus third spacing of fluid - Currently anuric, nephrology following Plan -Continue CVVHD as tolerated, continue fluid removal rate as above (5) Skin infection Current Visit: Yes Status: Acute - Left wrist dorsal surface with chronic-appearing wound without discharge, drainage, erythema. It does have a eschar overlying. Limits notably warm, however contralateral arm is also warm. - Wound cultures revealed staph aureus which was methicillin sensitive - Possible source of bacteremia Plan - Continue to monitor for increased fevers, increased warmth which were concerning for osteomyelitis and will require a CT scan - Continue nafcillin day #9 - Tylenol when necessary fever (6) Hematoma Current Visit: Yes Status: Acute Abdominal hematoma which has been followed by surgery No current plans for prevention at this time We will however hold off on chemical anticoagulation, continue SCDs (7) Anemia Current Visit: Yes Status: Acute - H/H of 7.0/23.1, stable from yesterday at 6.9 - Patient has been notably anemic since presentation. This may be secondary to intra-abdominal hematoma which is been followed by general surgery - Patient also may have a delusional effect given hypervolemic status - No obvious source of bleed Plan - We will continue to monitor at this time - We will begin fluid removal through dialysis as above which will hemoconcentrate - Continue to monitor with daily labs Qualifiers: Anemia type: unspecified type Qualified Code(s): D64.9 - Anemia, unspecified (8) Ventilator dependence Current Visit: Yes Status: Resolved Successful weaning trial this morning (9) Diabetes mellitus Current Visit: Yes Status: Chronic - Blood sugar of 141 - Hemoglobin A1c of 7.8% in March 2017 - He is notably requiring a large amount insulin, we will increase sliding scale to moderate - Every 6 blood sugar checks Qualifiers: Diabetes mellitus type: type 2 Diabetes mellitus oysterman insulin use: without oysterman use Diabetes mellitus complication status: with hyperglycemia Qualified Code(s): E11.65 - Type 2 diabetes mellitus with hyperglycemia (10) DVT prophylaxis Current Visit: Yes Status: Acute SCDs in the setting of abdominal hematoma, anemia with hemoglobin of 7 Subjective Principal diagnosis: Sepsis/Septic Shock Interval history: Patient seen and examined at bedside this morning. On initial presentation patient was intubated however he was weaned off sedation and able to follow commands. We did attempt a CPAP trial which was successful. He was extubated this morning and is tolerating oxygen via nasal cannula without complaints. Objective PUL Vital signs: Last Vital Signs Temp 98.4 F 05/01/17 04:00 Pulse 109 05/01/17 06:00 Resp 20 05/01/17 06:07 BP 120/56 05/01/17 06:07 Pulse Ox 96 05/01/17 06:07 General appearance: no acute distress, alert, lethargic Gen.: Vitals noted. No acute distress. Extubated and following commands HEENT: PERRL/EOMI, oropharynx clear mucous membranes moderately dry, Normocephalic, atraumatic Cardiac: Regular rhythm, tachycardia, no murmur, +S1/S2 Pulmonary: Moderate amount of wheezing, most prominent on right side. Improved from previous. equal chest expansion Abdomen: soft, patient reports mild tenderness to palpation in epigastric region , BS noted, no guarding MSK: Diffuse weakness Extremities: 1+ pedal edema bilaterally, nontender calf, no cyanosis or clubbing Neuro: A&Ox3, moves all extremities, no focal deficits. Does follow appropriate commands Psych: Appropriate mood and behavior Ventilator Settings Ventilator Settings: Ventilator Settings, Last 8 Hours Ventilator Mode VC+ Ventilator Mode VC+ Ventilator Mode VC+ Ventilator Mode VC+ Ventilator Mode VC+ Ventilator Mode VC+ Ventilator Mode VC+ Ventilator Mode VC+ Ventilator Mode VC+ Ventilator Mode VC+ Ventilator Mode VC+ Ventilator Tidal Volume 450 Setting Ventilator Tidal Volume 450 Setting Ventilator Tidal Volume 450 Setting Ventilator Tidal Volume 450 Setting Ventilator Tidal Volume 450 Setting Ventilator Tidal Volume 450 Setting Ventilator Tidal Volume 450 Setting Ventilator Tidal Volume 450 Setting Ventilator Tidal Volume 450 Setting Ventilator Tidal Volume 450 Setting Ventilator Tidal Volume 450 Setting Ventilator Respiratory Rate 16 Setting Ventilator Respiratory Rate 16 Setting Ventilator Respiratory Rate 16 Setting Ventilator Respiratory Rate 16 Setting Ventilator Respiratory Rate 16 Setting Ventilator Respiratory Rate 16 Setting Ventilator Respiratory Rate 16 Setting Ventilator Respiratory Rate 16 Setting Ventilator Respiratory Rate 16 Setting Ventilator Respiratory Rate 16 Setting Ventilator Respiratory Rate 16 Setting Actual Respiratory Rate 22 Actual Respiratory Rate 22 Actual Respiratory Rate 20 Positive End Expiratory 5 Pressure Positive End Expiratory 5 Pressure Positive End Expiratory 5 Pressure Positive End Expiratory 5 Pressure Positive End Expiratory 5 Pressure Positive End Expiratory 5 Pressure Positive End Expiratory 5 Pressure Positive End Expiratory 5 Pressure Positive End Expiratory 5 Pressure Positive End Expiratory 5 Pressure Positive End Expiratory 5 Pressure Peak Inspiratory Airway 18 Pressure Peak Inspiratory Airway 15 Pressure Peak Inspiratory Airway 18 Pressure Results - Laboratory Findings CBC and BMP: 05/01/17 04:15 05/01/17 04:15 ABG ABG pH 7.46 pH Units (7.32-7.45) H 05/01/17 04:55 ABG pCO2 37 mmHg (35-45) 05/01/17 04:55 ABG pO2 60 mmHg (85-104) L 05/01/17 04:55 ABG O2 Saturation 92 % (95-98) L 05/01/17 04:55 PT/INR, D-dimer PT 15.1 Seconds (9.4-12.1) H 04/26/17 04:00 D-Dimer 5447 ng/mLFEU (0-500) H 04/21/17 05:41 Abnormal lab findings: Abnormal lab results RBC 2.51 M/mcL (4.19-5.50) L 05/01/17 04:15 Hgb 7.0 g/dL (12.9-16.9) L 05/01/17 04:15 Hct 23.1 % (37.5-50.1) L 05/01/17 04:15 MCH 27.9 pg (28.0-33.3) L 05/01/17 04:15 MCHC 30.3 g/dL (31.6-35.5) L 05/01/17 04:15 RDW 15.5 % (11.5-14.5) H 05/01/17 04:15 Band Neutrophils % 8.0 % (0-4) H 04/29/17 07:46 Metamyelocytes % 4.0 % (0) H 04/29/17 07:46 Myelocytes % 5.0 % (0) H 04/27/17 09:30 Promyelocytes % 2.0 % (0) H 04/27/17 09:30 Blast Cells % 1.0 % (0) H 04/27/17 09:30 Nucleated RBCs/100 WBC 0.1 /100 WBC (0) H 04/30/17 04:55 Reactive Lymphocytes Present (Not Present) A 04/28/17 03:15 Toxic Granulation Present (Not Present) A 04/29/17 07:46 Toxic Vacuolation Present (Not Present) A 04/21/17 14:25 Immature Plt Fraction 9.4 % (1.1-6.1) H 04/23/17 03:00 PT 15.1 Seconds (9.4-12.1) H 04/26/17 04:00 Fibrinogen 583 mg/dL (169-393) H 04/21/17 12:50 D-Dimer 5447 ng/mLFEU (0-500) H 04/21/17 05:41 ABG pH 7.46 pH Units (7.32-7.45) H 05/01/17 04:55 ABG pO2 60 mmHg (85-104) L 05/01/17 04:55 ABG Total CO2 27 mEq/L (20-26) H 05/01/17 04:55 ABG O2 Saturation 92 % (95-98) L 05/01/17 04:55 VBG pH 7.44 pH Units (7.32-7.42) H 05/01/17 05:37 VBG pCO2 36 mmHg (41-51) L 05/01/17 05:37 VBG pO2 157 mmHg (25-50) H 05/01/17 05:37 Chloride 114 mEq/L (98-107) H 05/01/17 04:15 Carbon Dioxide 22 mEq/L (23-29) L 05/01/17 04:15 BUN 55 mg/dL (8-23) H 05/01/17 04:15 Creatinine 4.12 mg/dL (0.70-1.30) H 05/01/17 04:15 Est GFR ( Amer) 18 (> 60) L 05/01/17 04:15 Est GFR (Non-Af Amer) 15 (> 60) L 05/01/17 04:15 Glucose 141 mg/dL (70-105) H 05/01/17 04:15 POC Glucose 245 (58-89) H 04/30/17 23:29 Calculated Osmolality 311 (280-300) H 05/01/17 04:15 Calcium 7.8 mg/dL (8.6-10.3) L 05/01/17 04:15 Direct Bilirubin 0.3 mg/dL (0.0-0.2) H 04/28/17 03:15 Troponin I 4.23 ng/mL (< 0.04) H* 04/21/17 14:25 Serum Total Protein 5.8 g/dL (6.4-8.9) L 04/28/17 03:15 Albumin 2.5 g/dL (3.5-5.7) L 04/28/17 03:15 Albumin/Globulin Ratio 0.8 (1.1-2.2) L 04/28/17 03:15 HDL Cholesterol 27 mg/dL (40-59) L 04/20/17 03:48 Vancomycin Trough 39.7 mcg/mL (10-20) H* 04/21/17 12:50 Staphylococcus sp PCR DETECTED (Not Detect) A 04/20/17 03:48 Staph aureus (PCR) DETECTED (Not Detect) A 04/20/17 03:48 - Microbiology Findings Microbiology Findings: Microbiology, Last 48 Hours 04/27/17 13:52 Sputum Culture - Final Sputum Staphylococcus aureus - Clinical Findings Intake & Output: Intake & Output 04/30/17 04/30/17 05/01/17 15:59 23:59 07:59 Intake Total 1819 / 1819 1327 / 1327 1457 / 1457 Output Total 2663 / 2663 2906 / 2906 3207 / 3207 Balance -844 / -844 -1579 / -1579 -1750 / -1750 Weight 94.1 kg - VTE Documentation of Mechanical Device: Intermittent pneumatic compression device
[2017-05-01] MEDS ORDERED: *HR* Alteplase (Cathflo) 2 MG VIAL IVP ONE ×2 (08:16→09:17)
[2017-05-01] MEDS: Dexmedetomidine HCl 400 MCG/100 ML MLS IVC SCH (09:23)
[2017-05-01] MEDS: Chlorhexidine Rinse 15 ML MOUTHWASH MM SCH ×2 (09:42→20:39)
[2017-05-01] MEDS: Insulin DETEMIR 100 UNIT/ML X5UNITS SQ SCH (09:45)
[2017-05-01] MEDS: Aspirin 81 MG TAB.CHEW PO SCH (12:40)
[2017-05-01] MEDS: *HR* Ticagrelor 90 MG TABLET PO SCH ×2 (12:40→20:25)
[2017-05-01] MEDS ORDERED: *HR* Heparin 5,000 UNIT/ML VIAL ONE (14:01)
--- NOTE | 2017-05-01 15:22 | IR Procedure Note ---
Date of procedure: 05/01/17 Consent Obtained: Verbal consent Timeout: Correct patient and procedure verified, Correct site verified, Time out performed, Skin prep completed Local anesthetic: Lidocaine 1% Indications: Fem HD catheter not working well. Procedure Performed: Right IJV temp HD catheter placement. Was there an mailroom assistant present: No Site/Technique: Lower 1/2 RIJV collapsed despite rev Trendelenburg. Stuck higher for access Results/Findings: Catheter working well. CXR pending. Tolerated well. Estimated blood loss (cc): 2 Complications: None; Tolerated procedure well Post Procedure Treatment Plan: Monitoring in unit. Continue frequent vitals as per unit protocol. Specimen: N/a
--- NOTE | 2017-05-01 17:19 | Nephrology Progress Note ---
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 Will consider intermittent HD as well given stable hemodynamics by tomorrow. Goal of care discussed with nurse and critical care team UOP remains poor/anuric in the past 24hrs Will maintain a negative fluid balance given stable hemodynamics Continue anticoagulation with citrate protocol Continue to avoid nephrotoxins if possible Limit obligate fluids if possible (2) Acute respiratory failure with hypoxia Current Visit: Yes Status: Acute Vent management per critical acre (3) Septic shock Current Visit: Yes Status: Acute Antibiotics per critical care team Subjective Principal diagnosis: Sepsis/Septic Shock Interval history: Pt seen and examined remaining off pressors and sedation overall. s/p extubation this am. Hemodynamics stable.Femoral temp line not working well this am despite interventions, will switch to IJ if possible. CVVHDF on hold at present Objective - Vital Signs Vital signs: Vital Signs Temp Pulse Resp BP Pulse Ox 05/01/17 17:00 107 26 173/65 95 05/01/17 16:00 107 22 158/64 94 05/01/17 15:00 98.4 F 109 22 150/64 92 05/01/17 14:00 110 22 137/57 92 05/01/17 13:00 114 22 134/54 91 05/01/17 12:00 116 20 143/65 91 05/01/17 11:08 115 05/01/17 11:00 98.6 F 115 22 155/69 91 05/01/17 10:00 124 22 146/72 91 05/01/17 09:00 114 20 177/71 91 05/01/17 08:00 98.5 F 116 24 164/73 91 05/01/17 07:43 109 05/01/17 07:00 114 22 181/76 96 05/01/17 06:07 20 120/56 96 05/01/17 06:00 109 18 113/62 95 05/01/17 05:00 121 18 180/73 93 05/01/17 04:00 98.4 F 118 21 159/79 95 05/01/17 03:43 25 178/73 95 05/01/17 03:18 109 05/01/17 03:00 112 23 167/81 95 05/01/17 02:23 20 135/73 95 05/01/17 02:00 107 19 136/74 95 05/01/17 01:00 120 22 210/81 95 05/01/17 00:03 114 05/01/17 00:00 99.9 F H 120 21 157/67 94 04/30/17 23:24 21 155/70 94 04/30/17 23:00 116 17 124/66 95 04/30/17 22:09 24 173/69 94 04/30/17 22:00 113 20 181/75 93 04/30/17 21:00 106 28 150/64 92 04/30/17 20:00 98.0 F 107 16 145/69 96 04/30/17 19:39 19 170/73 96 04/30/17 19:00 99 18 133/71 96 04/30/17 18:08 18 96 04/30/17 18:00 98.4 F 102 23 148/76 96 Intake and Output 05/01/17 05/01/17 05/01/17 07:59 15:59 23:59 Intake Total 1907 / 1907 200 / 200 100 / 100 Output Total 3207 / 3207 10 / 10 0 / 0 Balance -1300 / -1300 190 / 190 100 / 100 Intake: IV Fluids 1490 / 1490 200 / 200 100 / 100 Calcium Chloride 4,000 MG In 0. 1150 / 1150 100 / 100 9 % Sodium Chloride 1,000 ML @ 40 mls/hr CRRT [facility] Rx#: [id number] PrismaSATE BGK 4/2.5 5,000 ML @ 0 / 0 1500 mls/hr CRRT [facility] Rx#: [id number] FentaNYL (PF) 2,500 MCG In 60 / 60 0 / 0 Empty Bag 1 Each @ 50 MCG/HR 1 mls/hr IVC [facility] Rx#: [id number] Versed 50 MG In 0.9 % Sodium 0 / 0 Chloride 90 ML @ 2 MG/HR 4 mls/ hr IVC [facility] Rx#:[id number] Diprivan 1,000 mg In 100 ml @ 5 80 / 80 0 / 0 MCG/KG/MIN 3.015 mls/hr IVC . Q24H [facility] Rx#:[id number] Nafcillin 2,000 MG In 0.9 % 200 / 200 200 / 200 Sodium Chloride (Mini-Bag +) 100 ML @ 200 mls/hr IVPB Q4HR [facility] Rx#:[id number] Oral 0 / 0 0 / 0 Tube Feeding 417 / 417 0 / 0 0 / 0 Output: Nahomy 3197 / 3197 0 / 0 0 / 0 Rectal Tube 0 / 0 Catheter 10 / 10 10 / 10 0 / 0 Other: Weight 94.1 kg Blood Glucose* 245 166 Patient Weight 05/01/17 23:59 Weight 94.1 kg - Lab 05/01/17 04:15 05/01/17 04:15 Most recent lab results ABG pH 7.46 pH Units (7.32-7.45) H 05/01/17 04:55 ABG pCO2 37 mmHg (35-45) 05/01/17 04:55 ABG pO2 60 mmHg (85-104) L 05/01/17 04:55 ABG HCO3 26 mEq/L (21-27) 05/01/17 04:55 ABG O2 Saturation 92 % (95-98) L 05/01/17 04:55 Calcium 7.8 mg/dL (8.6-10.3) L 05/01/17 04:15 Phosphorus 3.0 mg/dL (2.7-4.5) 04/27/17 03:49 Magnesium 2.1 mg/dL (1.6-2.6) 04/28/17 03:15 - VTE Documentation of Mechanical Device: Intermittent pneumatic compression device Consult Discharge Plan - Plan Referrals: Kannan Hurley DO [Primary Care Provider] - Juan Lake [Family Provider] -
--- NOTE | 2017-05-01 18:43 | Event Note ---
<Manolo Mas - Last Filed: 05/01/17 18:45> Date of Encounter: 05/01/17 Time of Encounter: 18:38 Patient has required multiple dressing changes over the right internal jugular hemodialysis catheter. There appears to be some oozing around the catheter insertion site as well as a small superficial laceration inferior and lateral to the insertion of the catheter. Attempts of hemostasis with direct pressure unsuccessful towards the laceration, likely secondary to multiple antiplatelet and anticoagulants. Laceration was measured at 1 cm. Laceration repaired with 1 horizontal mattress 3-0 suture. Multiple layers of surgicel placed around the catheter site. A 2x2 dressing placed over and tegaderm dressing placed. After 5 minutes, dressing observed to be clear/dry/intact. Procedure Name: Laceration Repair Indication: Reduce risk of infection and blood loss Location: right lateral neck Pre-Procedure Diagnosis: Laceration Post-Procedure Diagnosis: Repaired Laceration Informed consent was obtained before procedure started. PROCEDURE: The appropriate timeout was taken. The area was cleaned and irrigated with normal saline. Local anesthetic offered to patient but agreeable without. The wound was quickly closed with a single 3-0 Nylon horizontal mattress suture. Immediate hemostasis obtained. Estimated blood loss was less than 0.5 mL. A dressing was applied to the area and anticipatory guidance, as well as standard post-procedure care, was explained. The patient tolerated the procedure well without complications. Plan to have suture removed in 7 days. Performed by Resident Physician Manolo Mas DO <Gely Tolbert - Last Filed: 05/02/17 07:41> Date of Encounter: 05/02/17 On 05/01/2017 this was discussed with the resident due to continuous bleeding from around hemodialysis catheter in the right side of the neck. Suture area inspected without immediate complications and with partial success slowing down bleeding.
[2017-05-01] MEDS ORDERED: 0.9 % Sodium Chloride 250 ML ONE (19:41)
[2017-05-01 20:14] LABS: VBG Ionized Calcium 1.11 mmol/L (1.15-1.35)
[2017-05-01 21:57] LABS: VBG Ionized Calcium 1.14 mmol/L (1.15-1.35)
[2017-05-02] MEDS: Insulin LISPRO 300 UNITS/3 ML VIAL SQ SCH ×6 (00:01→21:03)
[2017-05-02 00:19] LABS: Red Cell Distribution Width 14.6 % (11.5-14.5)
[2017-05-02 00:21] LABS: Hematocrit 22.1 % (37.5-50.1); Hemoglobin 7.2 g/dL (12.9-16.9); Immature Platelets 3.9 % (1.1-6.1); Mean Corpuscular HGB Conc 32.6 g/dL (31.6-35.5); Mean Corpuscular Hemoglobin 27.5 pg (28.0-33.3); Mean Platelet Volume 10.6 fL (9.4-12.4); Red Blood Count 2.62 M/mcL (4.19-5.50)
[2017-05-02 00:23] LABS: Mean Corpuscular Volume 84.4 fL (83.0-100.0)
[2017-05-02 01:08] LABS: INR 1.4; Prothrombin Time 15.5 Seconds (9.4-12.1)
[2017-05-02] MEDS: PrismaSATE BGK 4/2.5 5,000 ML CRRT SCH ×4 (02:48→08:07)
[2017-05-02] MEDS: Nafcillin 2,000 MG in 0.9 % Sodium Chloride Mini Bag 100 ML IVPB SCH ×5 (03:02→21:03)
[2017-05-02] MEDS ORDERED: 0.9 % Sodium Chloride 500 ML ONE ×2 (03:10→17:03)
[2017-05-02 04:00] LABS: ABG Ionized Calcium 1.18 mmol/L (1.15-1.35)
[2017-05-02 04:10] LABS: Basophils % 0.1 %; Eosinophils % 0.4 %; Hematocrit 20.9 % (37.5-50.1); Hemoglobin 6.8 g/dL (12.9-16.9); Immature Granulocytes % 1.9 % (0-4); Lymphocytes # 0.6 K/mcL (0.6-4.6); Lymphocytes % 7.6 %; Mean Corpuscular HGB Conc 32.5 g/dL (31.6-35.5); Mean Corpuscular Hemoglobin 27.4 pg (28.0-33.3); Mean Corpuscular Volume 84.3 fL (83.0-100.0); Mean Platelet Volume 9.7 fL (9.4-12.4); Monocytes # 0.5 K/mcL (0.0-1.3); Monocytes % 6.2 %; Red Blood Count 2.48 M/mcL (4.19-5.50); Red Cell Distribution Width 14.8 % (11.5-14.5); Segmented Neutrophils % 83.8 %
[2017-05-02 04:13] LABS: Platelet Count 23 K/mcL (140-400)
[2017-05-02 04:38] LABS: Toxic Granulation Present (Not Present)
[2017-05-02 04:39] LABS: Platelet Estimate Marked Decrease (Normal)
[2017-05-02 04:45] LABS: Calcium 9.7 mg/dL (8.6-10.3); Potassium 4.4 mEq/L (3.5-5.1)
[2017-05-02] MEDS: Pantoprazole 40 MG VIAL IVP SCH ×2 (05:09→17:57)
[2017-05-02] MEDS: Calcium Chloride 4,000 MG in 0.9 % Sodium Chloride 1,000 ML CRRT SCH (06:54)
--- NOTE | 2017-05-02 07:41 | Pulmonology Progress Note ---
<Tanisha Tolbertmissy M - Last Filed: 05/02/17 09:00> Date of Encounter: 05/02/17 Objective PUL Vital signs: Last Vital Signs Temp 97.6 F 05/02/17 08:00 Pulse 83 05/02/17 08:00 Resp 16 05/02/17 08:00 BP 172/67 05/02/17 08:00 Pulse Ox 97 05/02/17 08:00 Results - Laboratory Findings CBC and BMP: 05/02/17 06:19 05/02/17 03:42 ABG ABG pH 7.46 pH Units (7.32-7.45) H 05/01/17 04:55 ABG pCO2 37 mmHg (35-45) 05/01/17 04:55 ABG pO2 60 mmHg (85-104) L 05/01/17 04:55 ABG O2 Saturation 92 % (95-98) L 05/01/17 04:55 PT/INR, D-dimer PT 15.5 Seconds (9.4-12.1) H 05/02/17 00:39 D-Dimer 5447 ng/mLFEU (0-500) H 04/21/17 05:41 Abnormal lab findings: Abnormal lab results RBC 2.48 M/mcL (4.19-5.50) L 05/02/17 03:42 Hgb 6.8 g/dL (12.9-16.9) L 05/02/17 03:42 Hct 20.9 % (37.5-50.1) L 05/02/17 03:42 MCH 27.4 pg (28.0-33.3) L 05/02/17 03:42 RDW 14.8 % (11.5-14.5) H 05/02/17 03:42 Plt Count 36 K/mcL (140-400) L D 05/02/17 06:19 Band Neutrophils % 8.0 % (0-4) H 04/29/17 07:46 Metamyelocytes % 4.0 % (0) H 04/29/17 07:46 Myelocytes % 5.0 % (0) H 04/27/17 09:30 Promyelocytes % 2.0 % (0) H 04/27/17 09:30 Blast Cells % 1.0 % (0) H 04/27/17 09:30 Nucleated RBCs/100 WBC 0.1 /100 WBC (0) H 04/30/17 04:55 Reactive Lymphocytes Present (Not Present) A 04/28/17 03:15 Toxic Granulation Present (Not Present) A 05/02/17 03:42 Toxic Vacuolation Present (Not Present) A 04/21/17 14:25 Platelet Estimate Marked Decrease (Normal) L 05/02/17 03:42 PT 15.5 Seconds (9.4-12.1) H 05/02/17 00:39 Fibrinogen 583 mg/dL (169-393) H 04/21/17 12:50 D-Dimer 5447 ng/mLFEU (0-500) H 04/21/17 05:41 ABG pH 7.46 pH Units (7.32-7.45) H 05/01/17 04:55 ABG pO2 60 mmHg (85-104) L 05/01/17 04:55 ABG Total CO2 27 mEq/L (20-26) H 05/01/17 04:55 ABG O2 Saturation 92 % (95-98) L 05/01/17 04:55 VBG pH 7.44 pH Units (7.32-7.42) H 05/01/17 05:37 VBG pCO2 36 mmHg (41-51) L 05/01/17 05:37 VBG pO2 157 mmHg (25-50) H 05/01/17 05:37 BUN 57 mg/dL (8-23) H 05/02/17 03:42 Creatinine 3.55 mg/dL (0.70-1.30) H 05/02/17 03:42 Est GFR ( Amer) 21 (> 60) L 05/02/17 03:42 Est GFR (Non-Af Amer) 18 (> 60) L 05/02/17 03:42 POC Glucose 151 (58-89) H 05/01/17 23:48 Calculated Osmolality 305 (280-300) H 05/02/17 03:42 Venous Ioniz Calcium 1.14 mmol/L (1.15-1.35) L 05/01/17 21:54 Direct Bilirubin 0.3 mg/dL (0.0-0.2) H 04/28/17 03:15 Troponin I 4.23 ng/mL (< 0.04) H* 04/21/17 14:25 Serum Total Protein 5.8 g/dL (6.4-8.9) L 04/28/17 03:15 Albumin 2.5 g/dL (3.5-5.7) L 04/28/17 03:15 Albumin/Globulin Ratio 0.8 (1.1-2.2) L 04/28/17 03:15 HDL Cholesterol 27 mg/dL (40-59) L 04/20/17 03:48 Vancomycin Trough 39.7 mcg/mL (10-20) H* 04/21/17 12:50 Staphylococcus sp PCR DETECTED (Not Detect) A 04/20/17 03:48 Staph aureus (PCR) DETECTED (Not Detect) A 04/20/17 03:48 - Microbiology Findings Microbiology Findings: Microbiology, Last 48 Hours 04/27/17 13:52 Sputum Culture - Final Sputum Staphylococcus aureus - Clinical Findings Intake & Output: Intake & Output 05/01/17 05/02/17 05/02/17 23:59 07:59 15:59 Intake Total 1101 / 1101 1605 / 1605 300 / 300 Output Total 857 / 857 1659 / 1659 157 / 157 Balance 244 / 244 -54 / -54 143 / 143 Consult Discharge Plan - Plan Referrals: Kannan Hurley DO [Primary Care Provider] - Juan Lake [Family Provider] - - Attending Attestation I examined this patient and my medical decision-making was reviewed with the Resident Physician. I agree with the documented findings, disposition and treatment plan as described except to the extent set forth below. Patient seen and examined. Labs, radiology, chart personally reviewed. Agree with resident's history and physical, assessment, plan with following comments: CATERING CHEF: Patient follows commands, Pulmonary: Acceptable oxygenation and ventilation and encourage incentive spirometry Cardiovascular: Hypertensive to resume his home medication mainly beta morris GI: Nutrition per dietary and GI prophylaxis per routine Heme: DVT prophylaxis per routine. Patient with anemia he has blood loss mainly from side of HD catheter and thrombocytopenia I suspect may be related to Nahomy and nephrology follow-up with refer to stop and since blood pressure is stable to maybe try HD. ID: Continue antibiotics and plan to de-escalation Renal; urine out put and renal funtion reviewed. Patient still on Nahomy and hoping he could be switched to intermittent HD. Check with interventional radiology regarding continuous bleeding from the HD catheter site. Endorcine: blood glucose is monitored Lines: all lines checked and no evidence of infections Skin: skin care to prevent pressure ulcers per nursing routine care <Sukhwinder Estevez - Last Filed: 05/02/17 15:53> Date of Encounter: 05/02/17 Time of Encounter: 07:41 Assessment and Plan (1) Acute respiratory failure with hypoxia Current Visit: Yes Status: Acute - Acute respiratory failure in the setting of cardiac arrest likely secondary to fluid overload versus ARDS picture - Successful extubated on 05/01/17. Currently tolerating 2 L of nasal cannula at high 90s. - I/O of -3.5 L cumulatively. Plan - Continue to monitor and treat underlying causes of respiratory failure as below - Encourage incentive spirometry, sitting up in chair (2) Septic shock Current Visit: Yes Status: Resolved - Presented with septic shock secondary to methicillin sensitive Staphylococcus aureus bacteremia - Most recent blood cultures obtained 04/27 revealed no growth, sputum cultures again growing staph aureus resistant to fluoroquinolones - Lactic acidosis resolved in stable. Not requiring any vasopressors at this time - Antibiotic coverage: Completed 3 days of meropenem, 5 days of Zosyn, currently on nafcillin day #10 - Afebrile overnight however did have an elevated temperature of 99.5. We will also consider rule out DVT. On SCDs due to anemia, abdominal hematoma, oozing from IJ site - Possible source of pneumonia versus left hand chronic wound - Chest x-ray showing bilateral interstitial airspace opacities, possibly secondary to fluid overload versus pneumonia Plan - Continue nafcillin, day #10, plan for duration of 21 days - Attempts fluid removal starting 04/30/17 at 100 mL per hour with CVVHD - Continue to monitor blood culture results until final (3) Anemia Current Visit: Yes Status: Acute - H/H of 6.8/20.9, stable from yesterday at 7.0 - He is currently receiving 3 units of packed red blood cells due to anemia in the setting of recent cardiac disease, thrombocytopenia, oozing from site - Patient will also received platelets for thrombocytopenia with most recent measurement of 38 - Patient has been notably anemic since presentation. This may be secondary to intra-abdominal hematoma which is been followed by general surgery Plan - Transfusing 3 units of packed red blood cells as well as platelets at this time - We will carefully monitor for increased bleeding. Interventional radiology consult it for oozing from surgical site - We will begin fluid removal through dialysis as above which will hemoconcentrate - Continue to monitor with daily labs Qualifiers: Anemia type: unspecified type Qualified Code(s): D64.9 - Anemia, unspecified (4) NANCY (acute kidney injury) Current Visit: Yes Status: Acute - BUNs/creatinine of 57/3.55, mildly improved creatinine from 4.12 - He has been receiving continuous venovenous hemodialysis. Expect possible rising creatinine given fluid removal. - Possibly secondary to hypoperfusion in cardiac arrest versus third spacing of fluid - Currently anuric, nephrology following Plan -Continue CVVHD as tolerated, continue fluid removal rate as above - After speaking with nephrology, plan to transition from continuous dialysis to intermittent starting tomorrow - Catheter site evaluated today. Interventional radiology called and they will remove the right IJ due to increased bleeding. Plan for possible wire exchange for right femoral tomorrow for dialysis access (5) Skin infection Current Visit: Yes Status: Acute - Left wrist dorsal surface with chronic-appearing wound without discharge, drainage, erythema. It does have a eschar overlying. Limits notably warm, however contralateral arm is also warm. - Wound cultures revealed staph aureus which was methicillin sensitive - Possible source of bacteremia Plan - Continue to monitor for increased fevers, increased warmth which were concerning for osteomyelitis and will require a CT scan - Continue nafcillin day #10 - Tylenol when necessary fever (6) Hematoma Current Visit: Yes Status: Acute Abdominal hematoma which has been followed by surgery No current plans for prevention at this time We will however hold off on chemical anticoagulation, continue SCDs (7) Diabetes mellitus Current Visit: Yes Status: Chronic - Blood sugar of 90 - Hemoglobin A1c of 7.8% in March 2017 - Every 6 blood sugar checks Qualifiers: Diabetes mellitus type: type 2 Diabetes mellitus care home insulin 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 He reports no complaints at this time and is tolerating 2 L of oxygen without complaints. I was informed of a moderate amount of oozing at the site of his right internal jugular central venous catheterization. Dressing with surgical seal examined. Objective PUL Vital signs: Last Vital Signs Temp 98.4 F 05/02/17 05:31 Pulse 85 05/02/17 07:36 Resp 12 05/02/17 07:00 BP 183/72 05/02/17 07:00 Pulse Ox 98 05/02/17 07:00 Gen.: Vitals noted. No acute distress. AAOx3 HEENT: PERRL/EOMI, oropharynx clear, Normocephalic, atraumatic Neck: Supple. Right internal jugular central venous catheter with moderate amount of oozing over site. No active bleeding at this time. Dressing saturated Cardiac: RRR, no murmur, +S1/S2 Pulmonary: Very mild wheezing, most prominent on left. Otherwise CTA bilaterally, rales or rhonchi, equal chest expansion Abdomen: soft, nontender, BS noted, no guarding MSK: Continues to follow commands, however diffuse weakness present. Muscle strength 3/5 Extremities: no BLE edema, nontender calf, no cyanosis or clubbing Neuro: A&Ox3, moves all extremities, no focal deficits Psych: Appropriate mood and behavior Results - Laboratory Findings CBC and BMP: 05/02/17 06:19 05/02/17 03:42 ABG ABG pH 7.46 pH Units (7.32-7.45) H 05/01/17 04:55 ABG pCO2 37 mmHg (35-45) 05/01/17 04:55 ABG pO2 60 mmHg (85-104) L 05/01/17 04:55 ABG O2 Saturation 92 % (95-98) L 05/01/17 04:55 PT/INR, D-dimer PT 15.5 Seconds (9.4-12.1) H 05/02/17 00:39 D-Dimer 5447 ng/mLFEU (0-500) H 04/21/17 05:41 Abnormal lab findings: Abnormal lab results RBC 2.48 M/mcL (4.19-5.50) L 05/02/17 03:42 Hgb 6.8 g/dL (12.9-16.9) L 05/02/17 03:42 Hct 20.9 % (37.5-50.1) L 05/02/17 03:42 MCH 27.4 pg (28.0-33.3) L 05/02/17 03:42 RDW 14.8 % (11.5-14.5) H 05/02/17 03:42 Plt Count 36 K/mcL (140-400) L D 05/02/17 06:19 Band Neutrophils % 8.0 % (0-4) H 04/29/17 07:46 Metamyelocytes % 4.0 % (0) H 04/29/17 07:46 Myelocytes % 5.0 % (0) H 04/27/17 09:30 Promyelocytes % 2.0 % (0) H 04/27/17 09:30 Blast Cells % 1.0 % (0) H 04/27/17 09:30 Nucleated RBCs/100 WBC 0.1 /100 WBC (0) H 04/30/17 04:55 Reactive Lymphocytes Present (Not Present) A 04/28/17 03:15 Toxic Granulation Present (Not Present) A 05/02/17 03:42 Toxic Vacuolation Present (Not Present) A 04/21/17 14:25 Platelet Estimate Marked Decrease (Normal) L 05/02/17 03:42 PT 15.5 Seconds (9.4-12.1) H 05/02/17 00:39 Fibrinogen 583 mg/dL (169-393) H 04/21/17 12:50 D-Dimer 5447 ng/mLFEU (0-500) H 04/21/17 05:41 ABG pH 7.46 pH Units (7.32-7.45) H 05/01/17 04:55 ABG pO2 60 mmHg (85-104) L 05/01/17 04:55 ABG Total CO2 27 mEq/L (20-26) H 05/01/17 04:55 ABG O2 Saturation 92 % (95-98) L 05/01/17 04:55 VBG pH 7.44 pH Units (7.32-7.42) H 05/01/17 05:37 VBG pCO2 36 mmHg (41-51) L 05/01/17 05:37 VBG pO2 157 mmHg (25-50) H 05/01/17 05:37 BUN 57 mg/dL (8-23) H 05/02/17 03:42 Creatinine 3.55 mg/dL (0.70-1.30) H 05/02/17 03:42 Est GFR ( Amer) 21 (> 60) L 05/02/17 03:42 Est GFR (Non-Af Amer) 18 (> 60) L 05/02/17 03:42 POC Glucose 151 (58-89) H 05/01/17 23:48 Calculated Osmolality 305 (280-300) H 05/02/17 03:42 Venous Ioniz Calcium 1.14 mmol/L (1.15-1.35) L 05/01/17 21:54 Direct Bilirubin 0.3 mg/dL (0.0-0.2) H 04/28/17 03:15 Troponin I 4.23 ng/mL (< 0.04) H* 04/21/17 14:25 Serum Total Protein 5.8 g/dL (6.4-8.9) L 04/28/17 03:15 Albumin 2.5 g/dL (3.5-5.7) L 04/28/17 03:15 Albumin/Globulin Ratio 0.8 (1.1-2.2) L 04/28/17 03:15 HDL Cholesterol 27 mg/dL (40-59) L 04/20/17 03:48 Vancomycin Trough 39.7 mcg/mL (10-20) H* 04/21/17 12:50 Staphylococcus sp PCR DETECTED (Not Detect) A 04/20/17 03:48 Staph aureus (PCR) DETECTED (Not Detect) A 04/20/17 03:48 - Microbiology Findings Microbiology Findings: Microbiology, Last 48 Hours 04/27/17 13:52 Sputum Culture - Final Sputum Staphylococcus aureus - Clinical Findings Intake & Output: Intake & Output 05/01/17 05/01/17 05/02/17 15:59 23:59 07:59 Intake Total 200 / 200 1101 / 1101 1605 / 1605 Output Total 857 / 857 1659 / 1659 Balance 190 / 190 244 / 244 -54 / -54 - VTE Documentation of Mechanical Device: Intermittent pneumatic compression device
[2017-05-02] MEDS: Chlorhexidine Rinse 15 ML MOUTHWASH MM SCH ×2 (08:08→21:02)
[2017-05-02] MEDS: *HR* Ticagrelor 90 MG TABLET PO SCH ×2 (08:08→21:03)
[2017-05-02] MEDS: Aspirin 81 MG TAB.CHEW PO SCH (08:08)
[2017-05-02] MEDS ORDERED: 0.9 % Sodium Chloride 250 ML ONE ×3 (08:34→21:09)
[2017-05-02] MEDS: Insulin DETEMIR 100 UNIT/ML X5UNITS SQ SCH (10:25)
[2017-05-02 10:30] LABS: VBG Ionized Calcium 0.89 mmol/L (1.15-1.35)
--- NOTE | 2017-05-02 11:48 | Nephrology Progress Note ---
<Eh Kunzson - Last Filed: 05/02/17 13:49> Date of Encounter: 05/02/17 Time of Encounter: 11:48 - Assessment and Plan (1) NANCY (acute kidney injury) Current Visit: Yes Status: Acute Pt remains anuric and HEAD PORTER dependent. RIJ will be replaced by IR tomorrow and will plan on intermittent HD at that time. UOP remains poor/anuric in the past 24hrs Will maintain a negative fluid balance given stable hemodynamics Continue anticoagulation with citrate protocol Continue to avoid nephrotoxins if possible Limit obligate fluids if possible (2) Acute respiratory failure with hypoxia Current Visit: Yes Status: Acute per management of critical care (3) Septic shock Current Visit: Yes Status: Resolved Antibiotics per critical care team Subjective Principal diagnosis: Sepsis/Septic Shock Interval history: RIJ was placed yesterday by IR, due to clotting at the incision point discussed with the IR team to have it replaced in order to continue HD tomorrow. Objective - Vital Signs Vital signs: Vital Signs Temp Pulse Resp BP Pulse Ox 05/02/17 11:12 84 05/02/17 11:00 98.1 F 82 14 176/65 94 05/02/17 10:00 80 14 180/68 98 05/02/17 09:00 83 14 164/62 96 05/02/17 08:00 97.6 F 83 16 172/67 97 05/02/17 07:36 85 05/02/17 07:00 83 12 183/72 98 05/02/17 06:00 87 12 196/75 97 05/02/17 05:31 98.4 F 87 15 187/72 93 05/02/17 05:20 98.3 F 87 24 187/70 93 05/02/17 05:19 98.3 F 05/02/17 05:18 89 25 196/73 93 05/02/17 05:00 89 24 182/69 94 05/02/17 04:00 98.9 F 90 15 182/74 95 05/02/17 03:29 88 05/02/17 03:21 98.9 F 87 16 176/70 94 05/02/17 03:13 98.7 F 90 17 172/67 95 05/02/17 03:00 87 10 167/74 96 05/02/17 02:00 88 12 163/67 95 05/02/17 01:00 92 18 163/68 96 05/02/17 00:00 98.8 F 94 18 163/68 95 05/01/17 23:06 93 05/01/17 23:00 93 18 146/77 96 05/01/17 22:27 98.7 F 98 24 195/75 96 05/01/17 22:00 96 22 161/76 97 05/01/17 21:00 96 14 179/58 95 05/01/17 20:01 100.1 F H 101 16 128/11 95 05/01/17 20:00 100.1 F H 101 16 128/11 95 05/01/17 19:45 99.6 F 100 20 118/14 95 05/01/17 19:27 103 05/01/17 19:00 93 24 165/59 96 05/01/17 18:00 101 24 177/61 95 05/01/17 17:00 107 26 173/65 95 05/01/17 16:00 107 22 158/64 94 05/01/17 15:00 98.4 F 109 22 150/64 92 05/01/17 14:00 110 22 137/57 92 05/01/17 13:00 114 22 134/54 91 05/01/17 12:00 116 20 143/65 91 Intake and Output 05/01/17 05/02/17 05/02/17 23:59 07:59 15:59 Intake Total 1101 / 1101 1605 / 1605 500 / 500 Output Total 857 / 857 1659 / 1659 605 / 605 Balance 244 / 244 -54 / -54 -105 / -105 Intake: IV Fluids 800 / 800 1240 / 1240 100 / 100 Calcium Chloride 4,000 MG In 0. 600 / 600 1040 / 1040 9 % Sodium Chloride 1,000 ML @ 40 mls/hr CRRT [facility] Rx#: [id number] PrismaSATE BGK 4/2.5 5,000 ML @ 0 / 0 1500 mls/hr CRRT [facility] Rx#: [id number] Nafcillin 2,000 MG In 0.9 % 200 / 200 200 / 200 100 / 100 Sodium Chloride (Mini-Bag +) 100 ML @ 200 mls/hr IVPB Q4HR [facility] Rx#:[id number] Oral 0 / 0 50 / 50 Tube Feeding 0 / 0 50 / 50 Blood Product 301 / 301 365 / 365 300 / 300 Platelet Pheresis Lp Irr 1st 0 / 0 Unit [id number] Platelet Pheresis Lp Irr 2nd 365 / 365 Unit [id number] Rbcs Leuko Poor As-1 Unit 0 / 0 [id number] Rbcs Leuko Poor As-1 Unit 0 / 0 300 / 300 [id number] Rbcs Leuko Poor As-1 Unit 301 / 301 [id number] Output: Nahomy 832 / 832 1554 / 1554 605 / 605 Rectal Tube 100 / 100 Catheter 25 / 25 5 / 5 0 / 0 Other: Blood Glucose* 223 143 - General Appearance General appearance: Present: frail EENT: Present: hearing intact, vision intact Cardiology: Present: regular rate Psychiatric: Present: cooperative - Lab 05/02/17 06:19 05/02/17 03:42 Most recent lab results ABG pH 7.46 pH Units (7.32-7.45) H 05/01/17 04:55 ABG pCO2 37 mmHg (35-45) 05/01/17 04:55 ABG pO2 60 mmHg (85-104) L 05/01/17 04:55 ABG HCO3 26 mEq/L (21-27) 05/01/17 04:55 ABG O2 Saturation 92 % (95-98) L 05/01/17 04:55 Calcium 9.7 mg/dL (8.6-10.3) 05/02/17 03:42 Phosphorus 3.0 mg/dL (2.7-4.5) 04/27/17 03:49 Magnesium 2.1 mg/dL (1.6-2.6) 04/28/17 03:15 - VTE Documentation of Mechanical Device: Intermittent pneumatic compression device Consult Discharge Plan - Plan Referrals: Kannan Hurley DO [Primary Care Provider] - Juan Lake [Family Provider] - <Norris Cardozo - Last Filed: 05/03/17 18:50> Date of Encounter: 05/02/17 - Assessment and Plan (1) NANCY (acute kidney injury) Current Visit: Yes Status: Acute (2) Acute respiratory failure with hypoxia Current Visit: Yes Status: Acute (3) Septic shock Current Visit: Yes Status: Resolved Objective - Vital Signs Vital signs: Vital Signs Temp Pulse Resp BP Pulse Ox 05/03/17 18:00 107/55 05/03/17 17:59 76 18 100/52 95 05/03/17 17:45 113/54 05/03/17 17:30 101/55 05/03/17 17:15 106/55 05/03/17 17:00 80 16 107/54 95 05/03/17 16:45 108/56 05/03/17 16:39 98.9 F 05/03/17 16:30 106/57 05/03/17 16:15 106/57 05/03/17 16:00 70 20 121/60 95 05/03/17 15:45 132/62 05/03/17 15:30 133/65 05/03/17 15:15 159/59 05/03/17 15:00 70 20 124/63 93 05/03/17 14:45 153/60 05/03/17 14:30 98.9 F 17 170/56 05/03/17 14:00 63 18 179/56 92 05/03/17 13:00 65 16 194/63 92 05/03/17 12:00 98.4 F 61 20 188/57 94 05/03/17 11:00 66 16 183/56 94 05/03/17 10:00 75 20 140/66 95 05/03/17 09:11 98.9 F 05/03/17 09:00 57 24 187/56 94 05/03/17 08:00 62 22 194/64 96 05/03/17 07:00 60 25 192/63 96 05/03/17 06:00 66 24 185/65 94 05/03/17 05:00 57 27 197/65 95 05/03/17 04:00 62 26 210/70 94 05/03/17 03:56 98.0 F 05/03/17 03:30 62 05/03/17 03:00 61 24 195/65 94 05/03/17 02:00 61 19 179/57 95 05/03/17 01:00 74 18 178/61 95 05/03/17 00:00 60 14 184/65 95 05/02/17 23:39 98.3 F 05/02/17 23:30 64 05/02/17 23:20 99.4 F 67 16 179/62 95 05/02/17 23:00 64 16 176/60 95 05/02/17 22:00 75 18 161/61 93 05/02/17 21:31 99.4 F 74 26 157/58 94 05/02/17 21:16 99.4 F 65 22 154/59 95 05/02/17 21:10 70 27 177/63 95 05/02/17 21:00 58 21 173/65 94 05/02/17 20:00 70 27 177/63 95 05/02/17 19:30 72 05/02/17 19:18 99.1 F 05/02/17 19:00 74 24 162/53 94 Intake and Output 05/03/17 05/03/17 05/03/17 07:59 15:59 23:59 Intake Total 680 / 680 800 / 800 100 / 100 Output Total 20 / 20 100 / 100 0 / 0 Balance 660 / 660 700 / 700 100 / 100 Intake: IV Fluids 200 / 200 200 / 200 100 / 100 Nafcillin 2,000 MG In 0.9 % 200 / 200 200 / 200 100 / 100 Sodium Chloride (Mini-Bag +) 100 ML @ 200 mls/hr IVPB Q4HR [facility] Rx#:[id number] Oral 480 / 480 0 / 0 Intake, Rinseback and Flushes 600 / 600 Output: Rectal Tube 0 / 0 0 / 0 Catheter 20 / 20 100 / 100 0 / 0 Other: Weight 92.5 kg Blood Glucose* 80 108 111 Hemodialysis Net Fluid Removed 1404 4006 (mL) Patient Weight 05/03/17 23:59 Weight 92.5 kg - Lab 05/03/17 03:35 05/03/17 03:35 Most recent lab results ABG pH 7.46 pH Units (7.32-7.45) H 05/01/17 04:55 ABG pCO2 37 mmHg (35-45) 05/01/17 04:55 ABG pO2 60 mmHg (85-104) L 05/01/17 04:55 ABG HCO3 26 mEq/L (21-27) 05/01/17 04:55 ABG O2 Saturation 92 % (95-98) L 05/01/17 04:55 Calcium 8.8 mg/dL (8.6-10.3) 05/03/17 03:35 Phosphorus 3.0 mg/dL (2.7-4.5) 04/27/17 03:49 Magnesium 2.1 mg/dL (1.6-2.6) 04/28/17 03:15 - Attending Attestation I examined this patient and my medical decision-making was reviewed with the Resident Physician. I agree with the documented findings, disposition and treatment plan as described except to the extent set forth below. Pt seen and examined bleeing profusely from new IJ HD catheter placed by IR the day prior with notably low platelet count around 30s and hgb at 6.8. Primary team contacting IR with Dr Chin presenting on scene and deciding to remove the catheter with pressure dressing afterwards. Will stop CVVHDF and plan for intermittent HD in the am given stable hemodynamics. Agree with transfusion plts and pRBCs (received a unit yesterday and another overnight with a third running now). Pt remains anuric hence no renal recovery but has been extubation over 48hrs and doing clinically better. Discussed case with family as well as primary team.
[2017-05-02] MEDS: *HR* Metoprolol 5 MG/5 ML VIAL IVP PRN ×2 (13:16→21:07)
[2017-05-02 15:57] LABS: Basophils % 0.3 %; Eosinophils # 0.1 K/mcL (0.0-0.6); Eosinophils % 0.9 %; Hematocrit 22.7 % (37.5-50.1); Hemoglobin 7.6 g/dL (12.9-16.9); Immature Granulocytes % 0.9 % (0-4); Lymphocytes # 0.7 K/mcL (0.6-4.6); Lymphocytes % 6.8 %; Mean Corpuscular HGB Conc 33.5 g/dL (31.6-35.5); Mean Corpuscular Volume 83.8 fL (83.0-100.0); Mean Platelet Volume 10.2 fL (9.4-12.4); Monocytes # 0.6 K/mcL (0.0-1.3); Monocytes % 6.1 %; Neutrophils # 8.4 K/mcL (1.6-8.9); Red Blood Count 2.71 M/mcL (4.19-5.50); Red Cell Distribution Width 14.5 % (11.5-14.5)
[2017-05-02 16:01] LABS: Platelet Count 25 K/mcL (140-400)
[2017-05-02 17:06] LABS: Platelet Estimate Marked Decrease (Normal); Toxic Granulation Present (Not Present)
[2017-05-02] MEDS ORDERED: *HR* Promethazine 25 MG/ML VIAL IVP PRN (19:49)
[2017-05-03] MEDS ORDERED: Ondansetron 4 MG/2 ML VIAL IVP SCH
[2017-05-03] MEDS: Nafcillin 2,000 MG in 0.9 % Sodium Chloride Mini Bag 100 ML IVPB SCH ×7 (00:29→23:49)
[2017-05-03] MEDS: Insulin LISPRO 300 UNITS/3 ML VIAL SQ SCH ×7 (00:31→23:50)
[2017-05-03] MEDS ORDERED: amLODIPine 5 MG TABLET PO ONE (03:10)
[2017-05-03 04:02] LABS: Basophils % 0.3 %; Hemoglobin 8.3 g/dL (12.9-16.9); Red Cell Distribution Width 14.3 % (11.5-14.5)
[2017-05-03 04:04] LABS: Calcium 8.8 mg/dL (8.6-10.3); Eosinophils # 0.1 K/mcL (0.0-0.6); Eosinophils % 0.8 %; Hematocrit 24.4 % (37.5-50.1); Immature Granulocytes % 0.9 % (0-4); Lymphocytes # 0.9 K/mcL (0.6-4.6); Lymphocytes % 7.8 %; Mean Corpuscular Hemoglobin 28.2 pg (28.0-33.3); Mean Platelet Volume 11.4 fL (9.4-12.4); Monocytes # 0.8 K/mcL (0.0-1.3); Monocytes % 6.9 %; Neutrophils # 9.8 K/mcL (1.6-8.9); Nucleated Red Blood Cells 0.2 /100 WBC (0); Potassium 3.8 mEq/L (3.5-5.1); Red Blood Count 2.94 M/mcL (4.19-5.50); Segmented Neutrophils % 83.3 %
[2017-05-03 04:17] LABS: Platelet Count 21 K/mcL (140-400)
[2017-05-03] MEDS: Pantoprazole 40 MG VIAL IVP SCH ×2 (05:04→17:26)
[2017-05-03] MEDS: Chlorhexidine Rinse 15 ML MOUTHWASH MM SCH ×2 (07:40→20:56)
[2017-05-03] MEDS: *HR* Ticagrelor 90 MG TABLET PO SCH (07:40)
[2017-05-03] MEDS: amLODIPine 5 MG TABLET PO SCH (07:40)
[2017-05-03] MEDS: Aspirin 81 MG TAB.CHEW PO SCH (07:40)
[2017-05-03] MEDS ORDERED: *HR* Heparin 10,000 UNIT/10 ML VIAL IV PRN (07:56)
[2017-05-03] MEDS ORDERED: 0.9 % Sodium Chloride 250 ML IVC PRN (07:56)
[2017-05-03] MEDS ORDERED: 0.9 % Sodium Chloride 1,000 ML PRIME SCH (08:00)
[2017-05-03] MEDS ORDERED: 0.9 % Sodium Chloride 1,000 ML ONE (08:03)
[2017-05-03] MEDS: Insulin DETEMIR 100 UNIT/ML X5UNITS SQ SCH (08:07)
--- NOTE | 2017-05-03 08:15 | Pulmonology Progress Note ---
<Tanisha Tolbertmissy M - Last Filed: 05/03/17 09:47> Date of Encounter: 05/03/17 Objective PUL Vital signs: Last Vital Signs Temp 98.9 F 05/03/17 09:11 Pulse 60 05/03/17 07:00 Resp 25 05/03/17 07:00 BP 192/63 05/03/17 07:00 Pulse Ox 96 05/03/17 07:00 Results - Laboratory Findings CBC and BMP: 05/03/17 03:35 05/03/17 03:35 ABG ABG pH 7.46 pH Units (7.32-7.45) H 05/01/17 04:55 ABG pCO2 37 mmHg (35-45) 05/01/17 04:55 ABG pO2 60 mmHg (85-104) L 05/01/17 04:55 ABG O2 Saturation 92 % (95-98) L 05/01/17 04:55 PT/INR, D-dimer PT 15.5 Seconds (9.4-12.1) H 05/02/17 00:39 D-Dimer 5447 ng/mLFEU (0-500) H 04/21/17 05:41 Abnormal lab findings: Abnormal lab results WBC 11.7 K/mcL (4.3-11.1) H 05/03/17 03:35 RBC 2.94 M/mcL (4.19-5.50) L 05/03/17 03:35 Hgb 8.3 g/dL (12.9-16.9) L 05/03/17 03:35 Hct 24.4 % (37.5-50.1) L 05/03/17 03:35 Plt Count 21 K/mcL (140-400) L* 05/03/17 03:35 Band Neutrophils % 8.0 % (0-4) H 04/29/17 07:46 Metamyelocytes % 4.0 % (0) H 04/29/17 07:46 Myelocytes % 5.0 % (0) H 04/27/17 09:30 Promyelocytes % 2.0 % (0) H 04/27/17 09:30 Blast Cells % 1.0 % (0) H 04/27/17 09:30 Neutrophils # 9.8 K/mcL (1.6-8.9) H 05/03/17 03:35 Nucleated RBCs/100 WBC 0.2 /100 WBC (0) H 05/03/17 03:35 Reactive Lymphocytes Present (Not Present) A 04/28/17 03:15 Toxic Granulation Present (Not Present) A 05/02/17 15:40 Toxic Vacuolation Present (Not Present) A 04/21/17 14:25 Platelet Estimate Marked Decrease (Normal) L 05/02/17 15:40 PT 15.5 Seconds (9.4-12.1) H 05/02/17 00:39 Fibrinogen 583 mg/dL (169-393) H 04/21/17 12:50 D-Dimer 5447 ng/mLFEU (0-500) H 04/21/17 05:41 ABG pH 7.46 pH Units (7.32-7.45) H 05/01/17 04:55 ABG pO2 60 mmHg (85-104) L 05/01/17 04:55 ABG Total CO2 27 mEq/L (20-26) H 05/01/17 04:55 ABG O2 Saturation 92 % (95-98) L 05/01/17 04:55 VBG pH 7.44 pH Units (7.32-7.42) H 05/01/17 05:37 VBG pCO2 36 mmHg (41-51) L 05/01/17 05:37 VBG pO2 157 mmHg (25-50) H 05/01/17 05:37 Sodium 135 mEq/L (136-145) L 05/03/17 03:35 Carbon Dioxide 20 mEq/L (23-29) L 05/03/17 03:35 BUN 75 mg/dL (8-23) H 05/03/17 03:35 Creatinine 4.94 mg/dL (0.70-1.30) H 05/03/17 03:35 Est GFR ( Amer) 15 (> 60) L 05/03/17 03:35 Est GFR (Non-Af Amer) 12 (> 60) L 05/03/17 03:35 POC Glucose 146 (58-89) H 05/02/17 23:42 Calculated Osmolality 302 (280-300) H 05/03/17 03:35 Venous Ioniz Calcium 0.89 mmol/L (1.15-1.35) L 05/02/17 10:26 Direct Bilirubin 0.3 mg/dL (0.0-0.2) H 04/28/17 03:15 Troponin I 4.23 ng/mL (< 0.04) H* 04/21/17 14:25 Serum Total Protein 5.8 g/dL (6.4-8.9) L 04/28/17 03:15 Albumin 2.5 g/dL (3.5-5.7) L 04/28/17 03:15 Albumin/Globulin Ratio 0.8 (1.1-2.2) L 04/28/17 03:15 HDL Cholesterol 27 mg/dL (40-59) L 04/20/17 03:48 Vancomycin Trough 39.7 mcg/mL (10-20) H* 04/21/17 12:50 Staphylococcus sp PCR DETECTED (Not Detect) A 04/20/17 03:48 Staph aureus (PCR) DETECTED (Not Detect) A 04/20/17 03:48 - Microbiology Findings Microbiology Findings: Microbiology, Last 48 Hours 04/27/17 07:17 Blood Culture - Final Peripheral Venipuncture No growth. 04/27/17 07:17 Blood Culture - Final Peripheral Venipuncture No growth. - Clinical Findings Intake & Output: Intake & Output 05/02/17 05/03/17 05/03/17 23:59 07:59 15:59 Intake Total 990 / 990 680 / 680 Output Total 432 / 432 20 / 20 100 / 100 Balance 558 / 558 660 / 660 -100 / -100 Weight 92.5 kg Consult Discharge Plan - Plan Referrals: Kannan Hurley DO [Primary Care Provider] - Juan Lake [Family Provider] - - Attending Attestation I examined this patient and my medical decision-making was reviewed with the Resident Physician. I agree with the documented findings, disposition and treatment plan as described except to the extent set forth below. Patient seen and examined. Labs, radiology, chart personally reviewed. 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 Patient is thrombocytopenic. GI: Nutrition per dietary and GI prophylaxis per routine Heme: DVT prophylaxis per routine. Thrombocytopenia is multifactorial in my opinion, will check with hematology for any more". ID: Continue antibiotics and plan to de-escalation Renal; urine out put and renal funtion reviewed Endorcine: blood glucose is monitored Lines: all lines checked and no evidence of infections Skin: skin care to prevent pressure ulcers per nursing routine care Continue monitoring in ICU. Patient will need physical therapy. <AlexeiSukhwinder harper - Last Filed: 05/03/17 14:14> Date of Encounter: 05/03/17 Time of Encounter: 08:15 Assessment and Plan (1) Acute respiratory failure with hypoxia Current Visit: Yes Status: Acute - Acute respiratory failure in the setting of cardiac arrest likely secondary to fluid overload versus ARDS picture - Successful extubated on 05/01/17. Currently tolerating 2 L of nasal cannula at high 90s. - I/O of -1.2 L cumulatively. Plan - Continue to monitor and treat underlying causes of respiratory failure as below - Encourage incentive spirometry, sitting up in chair (2) Septic shock Current Visit: Yes Status: Resolved - Presented with septic shock secondary to methicillin sensitive Staphylococcus aureus bacteremia - Most recent blood cultures obtained 04/27 revealed no growth, sputum cultures again growing staph aureus resistant to fluoroquinolones - Lactic acidosis resolved in stable. Not requiring any vasopressors at this time - Antibiotic coverage: Completed 3 days of meropenem, 5 days of Zosyn, currently on nafcillin day #11 - Afebrile overnight however did have an elevated temperature of 99.5. We will also consider rule out DVT. On SCDs due to anemia, abdominal hematoma, oozing from IJ site - Possible source of pneumonia versus left hand chronic wound - Chest x-ray showing bilateral interstitial airspace opacities, possibly secondary to fluid overload versus pneumonia - Consult to ID placed today Plan - Continue nafcillin, day #11, plan for duration of 21 days - Attempts fluid removal starting 04/30/17 at 100 mL per hour with CVVHD. Change to intermittent HD today - Continue to monitor blood culture results until final (3) Anemia Current Visit: Yes Status: Acute - H/H of 8.3/24.4 improved from yesterday at 6.8 after 3 units PRBC. Blood loss likely secondary to oozing IJ vein. - Stable, will have low threshold for transfusion due to recent cardiac disease , thrombocytopenia - Thrombocytopenic most recent value of 21. Further management as below Plan - H/H stable and we will continue to monitor at this time - We will carefully monitor for increased bleeding. - We will begin fluid removal through dialysis as above which will hemoconcentrate - Continue to monitor with daily labs Qualifiers: Anemia type: unspecified type Qualified Code(s): D64.9 - Anemia, unspecified (4) Thrombocytopenia Current Visit: Yes Status: Acute - Persistent thrombocytopenia with platelets down trending. Most recent number of 21 - Status post 2 units of platelets yesterday with no improvement - Etiology undetermined at this point but likely multifactorial including sepsis , critically ill - Patient is not actively bleeding, we did remove his right internal jugular central venous catheter yesterday due to oozing at site - Patient had a recent drug-eluting stent placed in the left proximal circumflex artery on 04/16/17 and was placed on aspirin and brilenta Plan - We will monitor for one day as patient is not actively bleeding - We did consult hematology for recommendations at this time - We also discussed this with cardiology given her recent catheterization with stent placement, who recommends continuing antiplatelet as soon as patient is more stable given the risk for stent rethrombosis. He does agree that holding the antiplatelet medications is appropriate at this time - We will also consult to infectious disease for recommendations as nafcillin may be contributing to some thrombocytopenia (5) NANCY (acute kidney injury) Current Visit: Yes Status: Acute - BUNs/creatinine of 75/4.94, mildly increased from previous however we have been increasing fluid removal - He has been receiving continuous venovenous hemodialysis. Expect possible rising creatinine given fluid removal. - Possibly secondary to hypoperfusion in cardiac arrest versus third spacing of fluid - Currently anuric, nephrology following Plan -Plan to start intermittent hemodialysis through a temporary catheter today, per nephrology - We did reconsult intervaginal radiology for guidewire exchange of right femoral temporary dialysis catheter - No further episodes of bleeding or we will continue to monitor carefully given thrombocythemia (6) Skin infection Current Visit: Yes Status: Acute - Left wrist dorsal surface with chronic-appearing wound without discharge, drainage, erythema. It does have a eschar overlying. Limits notably warm, however contralateral arm is also warm. - Wound cultures revealed staph aureus which was methicillin sensitive - Possible source of bacteremia - Infectious disease has been consulted Plan - Continue to monitor for increased fevers, increased warmth which were concerning for osteomyelitis and will require a CT scan - Continue nafcillin day #11 - Tylenol when necessary fever (7) Hematoma Current Visit: Yes Status: Acute Abdominal hematoma which has been followed by surgery No current plans for prevention at this time We will however hold off on chemical anticoagulation, continue SCDs (8) Diabetes mellitus Current Visit: Yes Status: Chronic - Blood sugar of 85 - Hemoglobin A1c of 7.8% in March 2017 - Every 6 blood sugar checks - We will hold basal insulin at time his blood sugars have been well-controlled and he is acutely ill Qualifiers: Diabetes mellitus type: type 2 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 Was discharged on aspirin and brilenta Discussed with cardiology today to thrombocytopenia with risk of stent rethrombosis. He is in agreement that patient would likely benefit from antiplatelet therapy with first choice of Plavix once patient is more stable with his platelet count. Management of underlying conditions as elsewhere (10) DVT prophylaxis Current Visit: Yes Status: Acute SCDs in the setting of abdominal hematoma, anemia with hemoglobin of 8, thrombocytopenia, oozing from vascular access site Subjective Principal diagnosis: Sepsis/Septic Shock Interval history: Patient seen and examined at bedside this morning. He reports no complaints at this time and is tolerating 2 L of oxygen without complaints. He states his shortness of breath has resolved any significant known point system. He was able to work with physical and occupational therapy without complaints. Reports no further episodes of bleeding. I was notified of a skin breakdown on his sacrum. Objective PUL Vital signs: Last Vital Signs Temp 98.0 F 05/03/17 03:56 Pulse 60 05/03/17 07:00 Resp 25 05/03/17 07:00 BP 192/63 05/03/17 07:00 Pulse Ox 96 05/03/17 07:00 Gen.: Vitals noted. No acute distress. AAOx3 HEENT: PERRL/EOMI, oropharynx clear, Normocephalic, atraumatic Cardiac: RRR, no murmur, +S1/S2 Pulmonary: Mild wheezing most prominent on left. Otherwise clear to auscultation without rales or rhonchi, equal chest expansion Abdomen: soft, nontender, BS noted, no guarding MSK: ROM intact, no joint swelling noted Extremities: no BLE edema, nontender calf, no cyanosis or clubbing Neuro: A&Ox3, moves all extremities, no focal deficits Psych: Appropriate mood and behavior Results - Laboratory Findings CBC and BMP: 05/03/17 03:35 05/03/17 03:35 ABG ABG pH 7.46 pH Units (7.32-7.45) H 05/01/17 04:55 ABG pCO2 37 mmHg (35-45) 05/01/17 04:55 ABG pO2 60 mmHg (85-104) L 05/01/17 04:55 ABG O2 Saturation 92 % (95-98) L 05/01/17 04:55 PT/INR, D-dimer PT 15.5 Seconds (9.4-12.1) H 05/02/17 00:39 D-Dimer 5447 ng/mLFEU (0-500) H 04/21/17 05:41 Abnormal lab findings: Abnormal lab results WBC 11.7 K/mcL (4.3-11.1) H 05/03/17 03:35 RBC 2.94 M/mcL (4.19-5.50) L 05/03/17 03:35 Hgb 8.3 g/dL (12.9-16.9) L 05/03/17 03:35 Hct 24.4 % (37.5-50.1) L 05/03/17 03:35 Plt Count 21 K/mcL (140-400) L* 05/03/17 03:35 Band Neutrophils % 8.0 % (0-4) H 04/29/17 07:46 Metamyelocytes % 4.0 % (0) H 04/29/17 07:46 Myelocytes % 5.0 % (0) H 04/27/17 09:30 Promyelocytes % 2.0 % (0) H 04/27/17 09:30 Blast Cells % 1.0 % (0) H 04/27/17 09:30 Neutrophils # 9.8 K/mcL (1.6-8.9) H 05/03/17 03:35 Nucleated RBCs/100 WBC 0.2 /100 WBC (0) H 05/03/17 03:35 Reactive Lymphocytes Present (Not Present) A 04/28/17 03:15 Toxic Granulation Present (Not Present) A 05/02/17 15:40 Toxic Vacuolation Present (Not Present) A 04/21/17 14:25 Platelet Estimate Marked Decrease (Normal) L 05/02/17 15:40 PT 15.5 Seconds (9.4-12.1) H 05/02/17 00:39 Fibrinogen 583 mg/dL (169-393) H 04/21/17 12:50 D-Dimer 5447 ng/mLFEU (0-500) H 04/21/17 05:41 ABG pH 7.46 pH Units (7.32-7.45) H 05/01/17 04:55 ABG pO2 60 mmHg (85-104) L 05/01/17 04:55 ABG Total CO2 27 mEq/L (20-26) H 05/01/17 04:55 ABG O2 Saturation 92 % (95-98) L 05/01/17 04:55 VBG pH 7.44 pH Units (7.32-7.42) H 05/01/17 05:37 VBG pCO2 36 mmHg (41-51) L 05/01/17 05:37 VBG pO2 157 mmHg (25-50) H 05/01/17 05:37 Sodium 135 mEq/L (136-145) L 05/03/17 03:35 Carbon Dioxide 20 mEq/L (23-29) L 05/03/17 03:35 BUN 75 mg/dL (8-23) H 05/03/17 03:35 Creatinine 4.94 mg/dL (0.70-1.30) H 05/03/17 03:35 Est GFR ( Amer) 15 (> 60) L 05/03/17 03:35 Est GFR (Non-Af Amer) 12 (> 60) L 05/03/17 03:35 POC Glucose 146 (58-89) H 05/02/17 23:42 Calculated Osmolality 302 (280-300) H 05/03/17 03:35 Venous Ioniz Calcium 0.89 mmol/L (1.15-1.35) L 05/02/17 10:26 Direct Bilirubin 0.3 mg/dL (0.0-0.2) H 04/28/17 03:15 Troponin I 4.23 ng/mL (< 0.04) H* 04/21/17 14:25 Serum Total Protein 5.8 g/dL (6.4-8.9) L 04/28/17 03:15 Albumin 2.5 g/dL (3.5-5.7) L 04/28/17 03:15 Albumin/Globulin Ratio 0.8 (1.1-2.2) L 04/28/17 03:15 HDL Cholesterol 27 mg/dL (40-59) L 04/20/17 03:48 Vancomycin Trough 39.7 mcg/mL (10-20) H* 04/21/17 12:50 Staphylococcus sp PCR DETECTED (Not Detect) A 04/20/17 03:48 Staph aureus (PCR) DETECTED (Not Detect) A 04/20/17 03:48 - Microbiology Findings Microbiology Findings: Microbiology, Last 48 Hours 04/27/17 07:17 Blood Culture - Final Peripheral Venipuncture No growth. - Clinical Findings Intake & Output: Intake & Output 05/02/17 05/03/17 05/03/17 23:59 07:59 15:59 Intake Total 990 / 990 680 / 680 Output Total 432 / 432 20 / 20 Balance 558 / 558 660 / 660 Weight 92.5 kg - VTE Documentation of Mechanical Device: Intermittent pneumatic compression device
--- NOTE | 2017-05-03 09:53 | Event Note ---
Date of Encounter: 05/03/17 Time of Encounter: 09:52 - Cardiology Event Note Thrombocytopenia noted with platelets 20. Hematology has been consulted. With recent PCI and drug eluding stents placed, cardiology recommends continuing dual anti-platelet therapy uninterrupted for at least one year, unless absolute contraindication. Patient would be at high risk for stent thrombosis without dual anti-platelet therapy. Discussed with .
[2017-05-03] MEDS: Isosorbide MONOnitrate (24 HR) 30 MG TAB.ER.24H PO SCH (10:36)
[2017-05-03] MEDS ORDERED: *HR* Heparin 5,000 UNIT/ML VIAL ONE (11:08)
--- NOTE | 2017-05-03 11:20 | IR Procedure Note ---
Date of procedure: 05/03/17 Consent Obtained: Verbal consent, Written consent Timeout: Correct patient and procedure verified, Correct site verified, Time out performed, Skin prep completed Local anesthetic: Lidocaine 1% Indications: Malfunctioning HD catheter Procedure Performed: Temp HD catheter exchange Was there an seismic survey assistant present: No Site/Technique: Right femoral temp HD catheter exchanged Results/Findings: HD catheter is functional Estimated blood loss (cc): 5 Complications: None; Tolerated procedure well Post Procedure Treatment Plan: KUB pending Specimen: none
--- NOTE | 2017-05-03 11:50 | Infectious Disease Consult ---
Date of Encounter: 05/03/17 Time of Encounter: 10:00 Assessment and Plan (1) Septic shock Status: Resolved Assessment and plan: Secondary to MSSA bacteremia and MSSA pneumonia Resolved (2) Staphylococcus aureus bacteremia with sepsis Status: Acute Assessment and plan: MSSA bacteremia may be secondary to left wrist infection versus MSSA pneumonia. All cultures grew same bacteria with similar sensitivities. - Patient currently on day 11 Nafcillin 2 g IV every 4 hours - Blood cultures no growth since 04/22/2017 - Vitals are stable Microbiology: Sputum culture 04/27 (+) Staphylococcus aureus Blood culture peripheral 04/27 (-) no growth Sputum culture 04/24 (+) light colonies staph aureus Blood culture peripheral 04/22 (-) no growth Blood culture peripheral 04/20 (+) MSSA Wound culture Lt wrist 04/20 (+) MSSA Anaerobic culture Lt wrist 04/20 (-) no anaerobes were recovered - Echocardiogram or 2018 demonstrated LVEF 45-50%, mild global left ventricular systolic dysfunction, normal left ventricular atrial size, normal right atrial size, poorly visualized. No comment on valvular structure or negative for endocarditis. - Patient will need LYDIA as CTA has concerning findings for possible septic emboli. Antibiotics: Nafcillin 2gm IV Q4hr -treatment duration 4 weeks from negative blood culture 04/22/17 (Anticipated end date 05/21/17). (3) Methicillin susceptible Staphylococcus aureus pneumonia Status: Acute Assessment and plan: MSSA positive sputum cultures on 04/24/2017, 05/07/2017 Risk Factors: MSSA-positive bacteremia and left wrist wound; possibly metastatic seeding from bacteremia. Patient also hospitalized and underwent cardiac catheterization with stent placement 3 days prior to presentation. - Chest x-ray demonstrates diffuse patchy infiltrates concerning for pneumonia - Chest CTA demonstrated multifocal nodular consolidations noted throughout both lung [place] which were concerning for pneumonia with small bilateral pleural effusions. - Antibiotics: Nafcillin 2 g IV every 4 hours (day# 11) Qualifiers: Laterality: bilateral Lung location: unspecified part of lung Qualified Code(s): J15.211 - Pneumonia due to Methicillin susceptible Staphylococcus aureus (4) Wound infection Status: Acute Assessment and plan: Left wrist wound and skin infection which grew MSSA susceptible to current therapy. - Possible cause of bacteremia (5) Thrombocytopenia Status: Acute Assessment and plan: Platelets 21 in the setting of acute illness, postcardiac arrest, MSSA positive pneumonia, bacteremia and skin infection. - Potential risk of ITP - Management per hematology and primary team. (6) NANCY (acute kidney injury) Status: Acute Assessment and plan: On CRRT. Has a femoral line dialysis catheter (7) Acute respiratory failure with hypoxia Status: Acute Assessment and plan: Status post intubation and extubation (8) Coronary artery disease Status: Chronic Qualifiers: Coronary Disease-Associated Artery/Lesion type: tribal artery [place] vs. transplanted heart: tribal heart Associated angina: with other forms of angina Qualified Code(s): I25.118 - Atherosclerotic heart disease of tribal coronary artery with other forms of angina pectoris (9) Diabetes mellitus Status: Chronic Qualifiers: Diabetes mellitus type: type 2 Diabetes mellitus shelter insulin use: without termite renewal inspector use Diabetes mellitus complication status: with hyperglycemia Qualified Code(s): E11.65 - Type 2 diabetes mellitus with hyperglycemia (10) Cardiac arrest Status: Resolved (11) S/P CABG (coronary artery bypass graft) Status: Chronic Infectious Disease HPI - Data of Consult Patient: new to practice Consult date: 05/03/17 Requesting Physician: Taye Ruiz Primary Care Provider: Family Agustin Provider: Shannan Provider - Consult Narrative Reason for consult: Staph aureus bactermia antibiotic recommendations History of present illness: 61-year-old male with known coronary artery disease who had CABG in 2012 presents complaining of chest pain. He was just admitted several days ago with chest pain and had 2 stents placed in the LAD here by Dr. Wallace 3 days prior to this admission. On the day of admission he was feeling fine until roughly 5 PM when he developed some mid substernal chest pain and pressure with complaints of nausea and vomiting. He was admitted and started on Chest pain work up. He underwent CTA of the chest that demonstrated Multifocal nodular consolidations are noted throughout both lungs, likely related to pneumonia with associated small bilateral pleural effusions. A large hematoma noted along the deep margin of the right abdominis rectus muscle, more pronounced towards the pelvis, with associated areas of extraperitoneal hemorrhage in the pelvis, asymmetric towards the right. There is also identified left upper extremity wound and infection. Patient was started on Levaquin, cefepime and vancomycin prior to culture results. Patient demonstrated hives and a rash concerning for allergy to cefepime which was discontinued on 04/20/2017 and was given IV Solu-Medrol and Benadryl. He demonstrated respiratory decompensation 04/20/2017 requiring intubation and central line placement. 04/21/2017 patient went to cardiac arrest after episode of bradycardia to PEA (6 rounds CPR, 4 rounds epi, 2A bicarb) to Sinus tachycardia to SVT (cardiovert x1 at 100J) to NSR. After ROSC a right radial arterial line was placed. There was concern for potential abdominal compartment syndrome evaluated by general surgery. Antibiotics were continued with Levaquin, meropenem, vancomycin at this time it was known he had staph aureus bacteremia but given his current condition there was delay in de- escalation of antibiotics at that time. Patient demonstrated signs and symptoms of ARDS on 04/22/2017, patient also demonstrated oliguric acute kidney injury secondary to septic shock requiring CVVHDF managed by nephrology. On 06/2017 antibiotics were De-escalated removing vancomycin and Levaquin for patient is continued on meropenem and nafcillin was started. 04/24/2017 meropenem was discontinued, nafcillin day 2 and Zosyn was started. Sputum culture grew Staphylococcus aureus with similar sensitivities to wound culture and blood cultures. He continued to clinically improve until this evaluation on 05/03/2017. Currently he is on day 11 of Nafcillin, received 5 days of Zosyn and 3 days of meropenem. Sputum culture from 05/07/2017 continued to demonstrate Staphylococcus aureus with similar sensitivities as previous. He continues to require hemodialysis with new right femoral HD catheter placed. Microbiology: Sputum culture 04/27 (+) Staphylococcus aureus Blood culture peripheral 04/27 (-) no growth Sputum culture 04/24 (+) light colonies staph aureus Blood culture peripheral 04/22 (-) @48hr Blood culture peripheral 04/20 (+) MSSA Wound culture Lt wrist 04/20 (+) MSSA Anaerobic culture Lt wrist 04/20 (-) no anaerobes were recovered Cardiac Catherization: Right Femoral artery entry: Status post catheterization with PTCA/drug-eluting stent to proximal circumflex 99% lesion. Has mid LAD 99% with patent COOK to mid LAD, remaining OM1 99% lesion with OM1 95% stenosis to proximal anastomosis site, proximal RCA 100% lesion. Vitals through our inpatient stay: temperature 98.4 (97.3-103.2), heart rate 61 (55-120), 20 (14-32), BP 188/57, oxygen saturation 94% on 2 L nasal cannula Labs at admission 04/19/2017): WBC 12.8, hemoglobin 13.0, HCT 37.3, platelet count 113, sodium 126, potassium 3.8, chloride 95, bicarbonate 20, BUN 27, creatinine 1.14, glucose 279. Current labs: WBC 11.7, hemoglobin 8.3, hematocrit 24.4, platelet 21, sodium 135 , potassium 3.8, chloride 101, bicarbonate 20, BUN 75, creatinine 4.94 on HD, GFR 12 Current creatinine clearance: 21 CC: Taye Ruiz Past Med Surg Social Fam HX - Past Medical History Medical history: coronary artery disease, diabetes, hyperlipidemia, hypertension , kidney stones Psychiatric history: depression - Past Surgical History Surgical History: coronary bypass (CABG) - Social History Smoking Status: Never smoker Smokeless Tobacco Status: No Alcohol use: none Drug use: none - Family History Mother Living Status: Still Living Hx Family Cardiac Disorders: Yes (CAD s/p CABG in 70s) Hx Family Respiratory Disorders: Yes (copd) Hx Family Cancer: Yes (lung ca) Hx Family Endocrine Disorder: No Father Adopted: [place]: KRISTY PABLO Living Status: Age at : 60 Cause of : MYOCARDIAL INFARCTION Hx Family Cardiac Disorders: Yes (NM) Hx Family Respiratory Disorders: No Hx Family Cancer: No Hx Family GI Disorders: No Hx Family Genitourinary Disorders: No Hx Family Endocrine Disorder: No Hx Family Musculoskeletal Disorders: No Hx Family Neuromuscular Disorders: No Hx Family Neurologic Disorders: No Hx Family HEENT Disorders: No Hx Family Autoimmune Disorders: No Hx Family Reproductive Disorders: No Hx Family Psychosocial Disorders: No Hx Family Medical Disorders: No Infectious Disease-CN:Meds Amlodipine Besylate 10 mg PO DAILY 04/15/17 [History] Citalopram [CeleXA] 20 mg PO DAILY 04/15/17 [History] Losartan Potassium [Cozaar] 50 mg PO DAILY 04/15/17 [History] Multivitamin [One Daily Essential] 1 each PO DAILY 04/15/17 [History] glipiZIDE [Glipizide] 10 mg PO DAILY 04/15/17 [History] metFORMIN [Glucophage] 500 mg PO BIDWM 04/15/17 [History] Aspirin 81 mg PO DAILY #30 tab.chew 04/17/17 [Rx] Carvedilol [Coreg] 12.5 mg PO BIDWM #120 tablet 04/17/17 [Rx] Nitroglycerin 0.4 mg SL Q5MIN #9 tab.subl 04/17/17 [Rx] Ticagrelor [Brilinta] 90 mg PO BID #60 tablet 04/17/17 [Rx] Atorvastatin Calcium [Lipitor] 20 mg PO HS 04/19/17 [History] 3 Allergy/AdvReac Type Severity Reaction Status Date / Time cefepime Allergy Mild Hives Verified 04/22/17 04:34 - Constitutional Constitutional: Present: headache(s), weakness. Absent: fever(s) - EENT Eyes: Absent: diplopia, other visual disturbances Nose, mouth and throat: Absent: dizziness, neck pain - Cardiovascular Cardiovascular: Present: chest pain, dyspnea. Absent: rapid heart rate, slow heart rate - Respiratory Respiratory: Present: dyspnea, wheezing. Absent: hemoptysis, change in phlegm color - Gastrointestinal Gastrointestinal: Present: cramping. Absent: nausea, vomiting - Genitourinary Genitourinary: other (lack of urination) - Musculoskeletal Musculoskeletal: Present: muscle weakness Exam - Constitutional Vitals: Temp Pulse Resp BP Pulse Ox 98.9 F 57 24 187/56 94 05/03/17 09:11 05/03/17 09:00 05/03/17 09:00 05/03/17 09:00 05/03/17 09:00 General appearance: cooperative - Head Head exam: Present: atraumatic, normocephalic - Eye Eye exam: Present: PERRL - Neck Neck exam: Present: normal inspection Additional comments: lines in place - Respiratory Respiratory exam: Present: CTAB - Cardiovascular Cardiovascular exam: Present: RRR, +S1, +S2 - GI/Abdominal GI/Abdominal exam: Present: distended, hypoactive bowel sounds. Absent: tenderness - Extremities Exam Additional comments: Symmetric bilaterally Distal LE have petechiae - Right femoral HD site without erythema, edema, hematoma or discharge - Left wrist wound without erythema, edema, healing appropriately. Infectious Disease CN: Results - Labs CBC & Chem 7: 05/03/17 03:35 05/03/17 03:35 Cultures: Cultures 04/27/17 07:17 Blood Culture - Final Peripheral Venipuncture No growth. 04/27/17 07:17 Blood Culture - Final Peripheral Venipuncture No growth. 04/27/17 13:52 Sputum Culture - Final Sputum Staphylococcus aureus 04/22/17 12:35 Blood Culture - Final Peripheral Venipuncture No growth. 04/22/17 12:35 Blood Culture - Final Peripheral Venipuncture No growth. 04/24/17 11:15 Sputum Culture - Final Sputum Staphylococcus aureus 04/20/17 10:15 Anaerobic Culture - Final Left Wrist - Abscess No anaerobes were recovered. 04/20/17 03:48 Blood Culture - Final Peripheral Venipuncture Staphylococcus aureus 04/20/17 03:48 Blood Culture - Final Peripheral Venipuncture Staphylococcus aureus 04/20/17 10:15 Wound Culture - Final Left Wrist - Abscess Staphylococcus aureus Serology: Serology 04/27/17 04/20/17 04/20/17 Range/Units 16:25 10:55 03:48 Stl C. diff Tox B Gene Negative (Negative) A. baumannii (PCR) Not Detected (Not Detect) Chlamy pneumoniae PCR Not Detected (Not Detect) Adenovirus (PCR) Not Detected (Not Detect) B. pertussis DNA (PCR) Not Detected (Not Detect) B.parapertussis DNA PCR Not Detected (Not Detect) Aixa albicans (PCR) Not Detected (Not Detect) C. glabrata (PCR) Not Detected (Not Detect) C. krusei (PCR) Not Detected (Not Detect) C. parapsilosis (PCR) Not Detected (Not Detect) C. tropicalis (PCR) Not Detected (Not Detect) Coronavirus OC43 (PCR) Not Detected (Not Detect) Coronavirus HKU1 (PCR) Not Detected (Not Detect) Coronavirus 229E (PCR) Not Detected (Not Detect) Coronavirus NL63 (PCR) Not Detected (Not Detect) Enterobacteriac sp PCR Not Detected (Not Detect) E. cloacae complex PCR Not Detected (Not Detect) Enterococcus sp PCR Not Detected (Not Detect) E. coli (PCR) Not Detected (Not Detect) H. influenzae (PCR) Not Detected (Not Detect) Human Metapneumovir PCR Not Detected (Not Detect) Influenza A (H1) PCR Not Detected (Not Detect) Influ A (H1N1/09) PCR Not Detected (Not Detect) Influenza A (H3) PCR Not Detected (Not Detect) Influenza A Untype (PCR) Not Detected (Not Detect) Influenza Type B (PCR) Not Detected (Not Detect) Klebsiella oxytoca PCR Not Detected (Not Detect) Klebsiella pneumoniae Not Detected (Not Detect) List. monocytogenes PCR Not Detected (Not Detect) M.pneumoniae DNA (PCR) Not Detected (Not Detect) N. meningitidis (PCR) Not Detected (Not Detect) Parainfluenza 1 (PCR) Not Detected (Not Detect) Parainfluenza 2 (PCR) Not Detected (Not Detect) Parainfluenza 3 (PCR) Not Detected (Not Detect) Parainfluenza 4 (PCR) Not Detected (Not Detect) Proteus species (PCR) Not Detected (Not Detect) RSV (PCR) Not Detected (Not Detect) Entero/Rhino (PCR) Not Detected (Not Detect) Serratia marcescens PCR Not Detected (Not Detect) Staphylococcus sp PCR DETECTED A (Not Detect) Staph aureus (PCR) DETECTED A (Not Detect) mecA-Methicil Res Gene Not Detected (Not Detect) Streptococcus sp PCR Not Detected (Not Detect) Group A Strep DNA Not Detected (Not Detect) Group B Strep (PCR) Not Detected (Not Detect) Strep pneumoniae (PCR) Not Detected (Not Detect) P. aeruginosa (PCR) Not Detected (Not Detect) Mariam/B-Vanco Res Genes Not Detected (Not Detect) KPC (blaKPC) Detect PCR Not Detected (Not Detect) - VTE Documentation of Mechanical Device: Intermittent pneumatic compression device Consult Discharge Plan - Plan Referrals: Kannan Hurley DO [Primary Care Provider] - Juan Lake [Family Provider] - - Attending Attestation I examined this patient and my medical decision-making was reviewed with the Resident Physician. I agree with the documented findings, disposition and treatment plan as described except to the extent set forth below. This is an addendum to original report dictated by resident physician. Please refer to residents note for full detail. Patient is 61-year-old gentleman admitted to [facility] on April 19 with chest pain, we are consulted on May 03 with MSSA bacteremia and MSSA pneumonia. Patient with past medical history mentioned below including coronary artery disease and CABG apparently was admitted to [facility] 3 days prior to this last admission with acute coronary syndrome requiring angioplasty with stent placement. Patient went home and then came back with the chest pain. On arrival patient was septic with tachycardia, fever and leukocytosis with neutrophilic predominance. Patient was started on broad-spectrum antibiotics mentioned below. On day 2 of admission patient decompensated went into PEA and required CPR. Patient was intubated, central lines were placed and required pressors. Complications of the decompensation including acute kidney injury requiring dialysis. Patient apparently also had an ileus and an NG tube placed. Blood cultures obtained on April 20 were positive for MSSA 2 out of 2 sets. Patient also had a wound on his left wrist that cultures grew MSSA. A CT scan of the patient was obtained and showed multifocal pneumonia and to me it looks like there were septic emboli but radiology did make a comment of that. Sputum cultures on April 24 and April Both grew MSSA. Patient did have wrist infectious panel done and PCR did not picking tech any organisms. Patient has been on it combination of multiple antibiotics that are summarized below. Currently patient is clinically doing better. We were asked to evaluate the patients make further recommendations. Patient denies any hardware on his body. Review of system is negative other for what mentioned in the residents note. Physical exam shows no conjunctival hemorrhage, no endocarditis stigmata on the skin and no heart murmur. Patient only has one major [place] criteria. Patient did have a TTE that did not reveal any obvious vegetations on the valves. ABX: Vancomycin 04/20 04/23; 04/27 Nafcillin 04/23 current Meropenem 04/20 04/23 Levaquin 04/20 04/23 Zosyn 04/24 04/29 Assessment/plan: 1. Septic shock resolved; secondary to number 2 & 3 2. MSSA bacteremia positive cultures on 04/20/17 2/2 sets. Likely source is left wrist abscess? 3. MSSA pneumonia Respiratory infectious panel on 04/21 was negative. sputum cultures positive on 04/24 and 04/27 for MSSA 4. Left wrist abscess s/p I&D and cultures positive for MSSA on 04/20 5. NANCY on CRRT dialysis catheter right femoral 6. Ileus: resolved 7. ACS with PEA requiring CPR x 6 on 04/20 8. Thrombocytopenia etiology not clear? 9. We will continue with nafcillin to treat for at least 4 weeks total for complicated MSSA bacteremia. Patient will need a LYDIA prior to discharge Monitor labs and for drug toxicity No dose adjustments needed for the nafcillin at this point Check urine legionella and pneumococcal antigen Repeat chest x-ray
--- NOTE | 2017-05-03 12:25 | Nephrology Progress Note ---
Date of Encounter: 05/03/17 Time of Encounter: 12:00 - Assessment and Plan (1) NANCY (acute kidney injury) Current Visit: Yes Status: Acute SCr worse with UOP still poor/anuric in the past 24hrs hence no renal recovery yet, will proceed with intermittent HD today once new HD access present (ok to exchage previous femoral over guidewire as well as bleeding has been an issue. Will reassess HD need on daily basis Continue to avoid nephrotoxins if possible Limit obligate fluids if possible (2) Acute respiratory failure with hypoxia Current Visit: Yes Status: Acute Resolved (3) Septic shock Current Visit: Yes Status: Resolved Antibiotics per critical care team but resolving Subjective Principal diagnosis: Sepsis/Septic Shock Interval history: Pt seen and examined doing better. No more bleeding today. Family at bedside. Objective - Vital Signs Vital signs: Vital Signs Temp Pulse Resp BP Pulse Ox 05/03/17 12:00 98.4 F 61 20 188/57 94 05/03/17 11:00 66 16 183/56 94 05/03/17 10:00 75 20 140/66 95 05/03/17 09:11 98.9 F 05/03/17 09:00 57 24 187/56 94 05/03/17 08:00 62 22 194/64 96 05/03/17 07:00 60 25 192/63 96 05/03/17 06:00 66 24 185/65 94 05/03/17 05:00 57 27 197/65 95 05/03/17 04:00 62 26 210/70 94 05/03/17 03:56 98.0 F 05/03/17 03:30 62 05/03/17 03:00 61 24 195/65 94 05/03/17 02:00 61 19 179/57 95 05/03/17 01:00 74 18 178/61 95 05/03/17 00:00 60 14 184/65 95 05/02/17 23:39 98.3 F 05/02/17 23:30 64 05/02/17 23:20 99.4 F 67 16 179/62 95 05/02/17 23:00 64 16 176/60 95 05/02/17 22:00 75 18 161/61 93 05/02/17 21:31 99.4 F 74 26 157/58 94 05/02/17 21:16 99.4 F 65 22 154/59 95 05/02/17 21:10 70 27 177/63 95 05/02/17 21:00 58 21 173/65 94 05/02/17 20:00 70 27 177/63 95 05/02/17 19:30 72 05/02/17 19:18 99.1 F 05/02/17 19:00 74 24 162/53 94 05/02/17 18:00 84 20 179/67 94 05/02/17 17:21 99.2 F 76 20 160/56 93 05/02/17 17:11 99.2 F 76 20 160/56 93 05/02/17 17:08 98.2 F 79 20 154/57 93 05/02/17 17:06 98.2 F 79 20 154/57 93 05/02/17 17:00 78 20 153/56 93 05/02/17 16:00 85 18 144/60 94 05/02/17 15:33 76 05/02/17 15:00 98.2 F 77 18 144/60 94 05/02/17 14:00 76 20 148/51 93 05/02/17 13:00 92 18 167/67 93 Intake and Output 05/02/17 05/03/17 05/03/17 23:59 07:59 15:59 Intake Total 990 / 990 680 / 680 100 / 100 Output Total 432 / 432 20 / 20 100 / 100 Balance 558 / 558 660 / 660 0 / 0 Intake: IV Fluids 200 / 200 200 / 200 100 / 100 Nafcillin 2,000 MG In 0.9 % 200 / 200 200 / 200 100 / 100 Sodium Chloride (Mini-Bag +) 100 ML @ 200 mls/hr IVPB Q4HR [facility] Rx#:[id number] Oral 60 / 60 480 / 480 Blood Product 730 / 730 Platelet Ph Acd-A Pasc Lp 1 250 / 250 Unit [id number] Platelet Pheresis Lp Irr 1st 200 / 200 Unit [id number] Rbcs Leuko Poor As-1 Unit 280 / 280 [id number] Output: Rectal Tube 400 / 400 0 / 0 0 / 0 Catheter 32 / 32 20 / 20 100 / 100 Other: Meal Dinner Percent of Meal Consumed 5% Stool Consistency liquid Stool Color Brown Green Weight 92.5 kg Blood Glucose* 146 80 108 Patient Weight 05/03/17 23:59 Weight 92.5 kg - General Appearance Exam: acutely ill but improving EENT: Present: ATNC, mucous membranes moist Neck: Present: no JVD, supple Additional Comments: good areation ant bilat Cardiology: Present: edema (LE bilat improving), normal S1, normal S2 Gastrointestinal: Present: no tenderness, no guarding Integumentary: Present: warm and dry Neurologic: Present: no focal deficit Musculoskeletal: Present: no deformities Psychiatric: Present: mood/affect appropriate, cooperative - Lab 05/03/17 03:35 05/03/17 03:35 Most recent lab results ABG pH 7.46 pH Units (7.32-7.45) H 05/01/17 04:55 ABG pCO2 37 mmHg (35-45) 05/01/17 04:55 ABG pO2 60 mmHg (85-104) L 05/01/17 04:55 ABG HCO3 26 mEq/L (21-27) 05/01/17 04:55 ABG O2 Saturation 92 % (95-98) L 05/01/17 04:55 Calcium 8.8 mg/dL (8.6-10.3) 05/03/17 03:35 Phosphorus 3.0 mg/dL (2.7-4.5) 04/27/17 03:49 Magnesium 2.1 mg/dL (1.6-2.6) 04/28/17 03:15 - VTE Documentation of Mechanical Device: Intermittent pneumatic compression device Consult Discharge Plan - Plan Referrals: Kannan Hurley DO [Primary Care Provider] - Juan Lake [Family Provider] -
--- NOTE | 2017-05-03 16:58 | Oncology Inp Consult Note ---
<Nancy Bettencourt L - Last Filed: 05/04/17 14:19> Date of Encounter: 05/04/17 Time of Encounter: 14:00 Assessment and Plan (1) Thrombocytopenia Status: Acute Assessment and plan: Refractory thrombocytopenia. Received 5/6 platelet transfusions. Blood smear 04/30 with normochromic normocytic anemia and neutrophilic leukocytosis with left shift consistent with inflammatory reaction. This smear was prior to acute thrombocytopenia. Will repeat blood smear to assess for presence of schistocytes for TTP/TMA. Discussed with pathology, smear pending Fibrinogen resulted elevated at 736 making a consumption coagulopathy such as DIC unlikely. Repeating D Dimer and PT/PTT. Thrombocytopenia may be secondary to destruction or bone marrow suppression due to sepsis, staph pneumonia, antibiotic therapy, consumption from bleeding, hematoma. DAPT on hold at this time due to severe thrombocytopenia and bleeding event overnight with removal of right IJ temporary HD catheter, cardiology on board. No active bleeding currently. Continue to monitor CBC closely and transfuse platelets to keep >10, or >30 for acute bleeding. May use FFP as needed. Please refer to Dr. Rebolledo's event note for additional details. - Data of Consult Patient: new to practice Consult date: 05/03/17 Requesting Physician: Taye Ruiz Primary Care Provider: Family Agustin Provider: Shannan Provider - Consult Narrative Reason for consult: refractory thrombocytopenia History of present illness: Mr. Pablo is a 61 year old male who presented to [facility] ER on 03/22/2017 for chest pain. 3 days prior to his presentation he had 2 stents placed in the LAD by Dr. Wallace. He underwent CTA of the chest that demonstrated Multifocal nodular consolidations are noted throughout both lungs, likely related to pneumonia with associated small bilateral pleural effusions as well as noting a large hematoma noted along the deep margin of the right abdominis rectus muscle. He also has a left upper extremity wound infection. He further decompensated during his hospital stay requiring intubation and central line placement, he also went into cardiac arrest with successful ROSC. He was evaluated by surgery for potential abdominal compartment syndrome. He has suffered an NANCY secondary to septic shock and nephrology is on board, he continues to require HD. ID also closely following patient for staphylococcus aureus bacteremia with sepsis, septic shock has resolved Oncology consulted for further assessment of refractory thrombocytopenia Past Med Surg Social Fam HX - Past Medical History Medical history: coronary artery disease, diabetes, hyperlipidemia, hypertension , kidney stones Psychiatric history: depression - Past Surgical History Surgical History: coronary bypass (CABG) - Social History Smoking Status: Never smoker Smokeless Tobacco Status: No Alcohol use: none Drug use: none - Family History Mother Living Status: Still Living Hx Family Cardiac Disorders: Yes (CAD s/p CABG in 70s) Hx Family Respiratory Disorders: Yes (copd) Hx Family Cancer: Yes (lung ca) Hx Family Endocrine Disorder: No Father Adopted: [place]: KRISTY PABLO Living Status: Age at : 60 Cause of : MYOCARDIAL INFARCTION Hx Family Cardiac Disorders: Yes (CO) Hx Family Respiratory Disorders: No Hx Family Cancer: No Hx Family GI Disorders: No Hx Family Genitourinary Disorders: No Hx Family Endocrine Disorder: No Hx Family Musculoskeletal Disorders: No Hx Family Neuromuscular Disorders: No Hx Family Neurologic Disorders: No Hx Family HEENT Disorders: No Hx Family Autoimmune Disorders: No Hx Family Reproductive Disorders: No Hx Family Psychosocial Disorders: No Hx Family Medical Disorders: No Medications and Allergies Amlodipine Besylate 10 mg PO DAILY 04/15/17 [History] Citalopram [CeleXA] 20 mg PO DAILY 04/15/17 [History] Losartan Potassium [Cozaar] 50 mg PO DAILY 04/15/17 [History] Multivitamin [One Daily Essential] 1 each PO DAILY 04/15/17 [History] glipiZIDE [Glipizide] 10 mg PO DAILY 04/15/17 [History] metFORMIN [Glucophage] 500 mg PO BIDWM 04/15/17 [History] Aspirin 81 mg PO DAILY #30 tab.chew 04/17/17 [Rx] Carvedilol [Coreg] 12.5 mg PO BIDWM #120 tablet 04/17/17 [Rx] Nitroglycerin 0.4 mg SL Q5MIN #9 tab.subl 04/17/17 [Rx] Ticagrelor [Brilinta] 90 mg PO BID #60 tablet 04/17/17 [Rx] Atorvastatin Calcium [Lipitor] 20 mg PO HS 04/19/17 [History] 3 Allergy/AdvReac Type Severity Reaction Status Date / Time cefepime Allergy Mild Hives Verified 04/22/17 04:34 Review of systems: difficult to obtain due to bipap Constitutional: Present: as per HPI, fatigue, weakness. Absent: chills, fever(s ) Eyes: Absent: change in vision Nose, mouth and throat: Absent: dysphagia, mouth lesions Cardiovascular: Present: as per HPI Additional comments: chest pain resolved Respiratory: Present: as per HPI, dyspnea, wheezing Gastrointestinal: Present: as per HPI, abdominal pain Genitourinary: as per HPI Additional comments: HD patient Musculoskeletal: Present: as per HPI Integumentary: Present: as per HPI Neurological: Absent: focal weakness, frequent falls Hematologic/Lymphatic: Present: as per HPI Oncology - Exam - Constitutional Vitals: Temp Pulse Resp BP Pulse Ox 98.9 F 70 20 108/56 95 05/03/17 16:39 05/03/17 16:00 05/03/17 16:00 05/03/17 16:45 05/03/17 16:00 General appearance: no acute distress, no febrile Exam: Bipap mask in place making verbal communication difficult. - Head Head exam: Present: atraumatic - Respiratory Respiratory exam: Present: CTAB - Cardiovascular Cardiovascular exam: Present: RRR, +S1, +S2 - GI/Abdominal GI/Abdominal exam: Present: diminished bowel sounds, soft, tenderness - Extremities Exam Extremities exam: Absent: calf tenderness Additional comments: left wrist wound. BLE petechiae - Neurological Exam Neurological exam: Present: alert, oriented X3, no focal deficits, strengths equal and symetr throughout - Psychiatric Psychiatric exam: Present: anxious - Skin Skin exam: Present: dry, pallor, warm Oncology - Results Labs: Short CBC 05/02/17 05/03/17 Range/Units 15:40 03:35 WBC 11.7 H (4.3-11.1) K/mcL Hgb 8.3 L (12.9-16.9) g/dL Hct 24.4 L (37.5-50.1) % Plt Count 21 L* (140-400) K/mcL Neutrophils # 8.4 9.8 H (1.6-8.9) K/mcL BMP 05/03/17 03:35 Sodium 135 L Potassium 3.8 Chloride 101 Carbon Dioxide 20 L BUN 75 H Creatinine 4.94 H Glucose 85 Calcium 8.8 Consult Discharge Plan - Plan Referrals: Kannan Hurley DO [Primary Care Provider] - Juan Lake [Family Provider] - <Mg Land - Last Filed: 05/04/17 16:04> Date of Encounter: 05/04/17 - Data of Consult Requesting Physician: Taye Ruiz Primary Care Provider: Kannan Hurley, Family Provider: Shannan Provider - Consult Narrative History of present illness: PS review by hematopathologist Dr Ortega, shows no broken cells, rpt fibrinogen pending. No evidence of DIC clinically. Worsening thrombocytopenia could be related to meds/bacterial infection. Transfuse platelets and monitor closely as patient needs continued antibiotic coverage with naficillin or consider switching antibiotics recommended by ID. Discussed smear findings with Dr Ortega, pathologist, ICU team/attending. I examined this patient and my medical decision-making was reviewed with the Advanced Practice Nurse, Nancy Bettencourt. I agree with the documented findings, disposition and treatment plan as described except to the extent set forth below. Oncology - Exam - Constitutional Vitals: Temp Pulse Resp BP Pulse Ox 98.0 F 77 26 178/73 96 05/04/17 15:15 05/04/17 13:59 05/04/17 13:59 05/04/17 13:59 05/04/17 13:59 Oncology - Results Labs: Short CBC 05/04/17 Range/Units 04:00 WBC 8.3 (4.3-11.1) K/mcL Hgb 8.4 L (12.9-16.9) g/dL Hct 24.8 L (37.5-50.1) % Plt Count 8 L* D (140-400) K/mcL Neutrophils # 6.8 (1.6-8.9) K/mcL BMP 05/04/17 04:00 Sodium 135 L Potassium 3.8 Chloride 98 Carbon Dioxide 24 BUN 47 H Creatinine 3.94 H Glucose 116 H Calcium 7.9 L Liver Function 05/03/17 Range/Units 16:33 Total Bilirubin 1.2 H (0.3-1.0) mg/dL Direct Bilirubin 0.5 H (0.0-0.2) mg/dL AST 36 (13-39) Units/L ALT 26 (7-52) Units/L Alkaline Phosphatase 61 (34-104) Units/L Albumin 2.7 L (3.5-5.7) g/dL
--- NOTE | 2017-05-03 17:09 | Event Note ---
Date of Encounter: 05/03/17 Time of Encounter: 12:00 Pl refer to Nancy Avila's notes for consult, assessment and plan Thrombocytopenia, anemai smear not showing any evidence pf DIC, PS stressed marrow, toxic granulations, fibrinogen, di dimers prior reviewed rpt pending. His bleeding from cather site has stopped. Thrombocytopenia from destruction or bone marrow suppression due to sepsis, staph pneumonia. s/p cardiac procedure, antibiotics-naficillin. consumption from recent bleeding, rectu ssheath hematoma. lab works showed nl Hgb prior to 04/21/17. Coagulopathy from liver dysfunction (improving), possible meds- heparin and thrombocytopenia. Transfuse Plt for bleeding, keep plt over 30k if acutely bleeding. FFP as needed. Desmopressin might help for platelet dysfunction due to kidney disease. Patient seen and examined bedside reviewed plan with patient and family.
[2017-05-03 17:24] LABS: Albumin 2.7 g/dL (3.5-5.7); Albumin/Globulin Ratio 0.7 (1.1-2.2); Bilirubin,Direct 0.5 mg/dL (0.0-0.2); Bilirubin,Indirect 0.7 mg/dL (0.0-1.2); Bilirubin,Total 1.2 mg/dL (0.3-1.0); Globulin 4.1 g/dL (2.4-3.5); Total Protein 6.8 g/dL (6.4-8.9)
[2017-05-03 19:27] LABS: Hepatitis B Surface Antigen Nonreactive (Nonreactive)
[2017-05-04] MEDS: *HR* Metoprolol 5 MG/5 ML VIAL IVP PRN (01:17)
[2017-05-04] MEDS ORDERED: Haloperidol Lactate 5 MG/ML VIAL IVP ONE (01:24)
[2017-05-04] MEDS ORDERED: Haloperidol Lactate 5 MG/ML VIAL ONE (01:27)
[2017-05-04] MEDS: Insulin LISPRO 300 UNITS/3 ML VIAL SQ SCH ×5 (03:57→19:40)
[2017-05-04] MEDS: Nafcillin 2,000 MG in 0.9 % Sodium Chloride Mini Bag 100 ML IVPB SCH ×4 (03:58→19:27)
[2017-05-04 04:23] LABS: Eosinophils % 0.4 %; Hemoglobin 8.4 g/dL (12.9-16.9); Immature Granulocytes % 0.6 % (0-4); Nucleated Red Blood Cells 0.2 /100 WBC (0); Red Cell Distribution Width 14.2 % (11.5-14.5); Segmented Neutrophils % 82.4 %
[2017-05-04 04:25] LABS: Basophils % 0.2 %; Hematocrit 24.8 % (37.5-50.1); Immature Platelets 9.5 % (1.1-6.1); Lymphocytes # 0.7 K/mcL (0.6-4.6); Lymphocytes % 8.2 %; Mean Corpuscular HGB Conc 33.9 g/dL (31.6-35.5); Mean Corpuscular Hemoglobin 28.2 pg (28.0-33.3); Mean Corpuscular Volume 83.2 fL (83.0-100.0); Mean Platelet Volume 11.4 fL (9.4-12.4); Monocytes # 0.7 K/mcL (0.0-1.3); Monocytes % 8.2 %; Neutrophils # 6.8 K/mcL (1.6-8.9); Red Blood Count 2.98 M/mcL (4.19-5.50)
[2017-05-04 04:57] LABS: Platelet Count 8 K/mcL (140-400)
[2017-05-04 05:50] LABS: Calcium 7.9 mg/dL (8.6-10.3); Potassium 3.8 mEq/L (3.5-5.1)
[2017-05-04] MEDS ORDERED: 0.9 % Sodium Chloride 250 ML ONE ×3 (06:00→19:07)
[2017-05-04] MEDS: Pantoprazole 40 MG VIAL IVP SCH ×2 (06:06→16:35)
--- NOTE | 2017-05-04 07:50 | Pulmonology Progress Note ---
<Manolo Mas - Last Filed: 05/04/17 13:32> Date of Encounter: 05/04/17 Time of Encounter: 07:50 Assessment and Plan (1) Acute respiratory failure with hypoxia Current Visit: Yes Status: Acute Acute respiratory failure in the setting of cardiac arrest secondary to fluid overload versus ARDS currently tolerating nasal cannula had episode of what appear to be anxiety that required BiPAP overnight continue to use incentive spirometry patient sitting up in chair, ad hamlet continue to work with PT/OT BiPAP as needed (2) Septic shock Current Visit: Yes Status: Resolved secondary to MSSA bacteremia, resolved currently being treated with Nafcillin, STOP date 05/21/2017 consult with infectious disease agreed for 28 days of total treatment after negative blood culture 04/27/2017 may require a LYDIA at a future date (3) Staphylococcus aureus bacteremia with sepsis Current Visit: Yes Status: Acute MSSA negative blood cultures x2 on 04/22 and 04/27 continue Nafcillin antibiotic treatment until 05/21/2017 or until LYDIA performed infectious disease consult, recs appreciated (4) Thrombocytopenia Current Visit: Yes Status: Acute continues to have persistent thrombocytopenia refractory to transfusion, patient is not actively bleeding currently s/p 4 units platelets platelets at 8k recheck this afternoon transfuse if platelets <20k etiology is undetermined at this point likely multifocal toward all including sepsis, critical illness hematology oncology consultation agree this is likely bone suppression secondary to sepsis, low likelihood of DIC currently his Aspirin and Brilinta are held (5) NANCY (acute kidney injury) Current Visit: Yes Status: Acute patient continues to be anuric nephrology is been consulted tolerated intermittent hemodialysis through the right femoral dialysis catheter yesterday, plan for dialysis tomorrow (6) Anemia Current Visit: Yes Status: Acute H/H stable 8.4 (8.3) s/p 4 units pRBCs given cardiac history goal greater than 8 will continue to monitor Qualifiers: Anemia type: unspecified type Qualified Code(s): D64.9 - Anemia, unspecified (7) Cardiac arrest Current Visit: Yes Status: Resolved s/p cardiac arrest PEA 1 RAMÍREZ placed 04/16/17 in left prox circumflex, discharged home on Aspirin and Brilinta cardiology has been consulted - recommend once the platelets stabilize and patients more stable may consider starting on antiplatelet Plavix (8) Diabetes mellitus Current Visit: Yes Status: Chronic Continue to monitor, accuchecks q6h given acute illness will hold his basal insulin at this time Qualifiers: Diabetes mellitus type: type 2 Diabetes mellitus [facility] insulin use: without [facility] use Diabetes mellitus complication status: with hyperglycemia Qualified Code(s): E11.65 - Type 2 diabetes mellitus with hyperglycemia (9) Hematoma Current Visit: Yes Status: Acute abdominal hematoma followed by surgery, no current plans of intervention at this time hold anticoagulants (10) DVT prophylaxis Current Visit: Yes Status: Acute SCDs Neuro: follows commands no acute issues CV: chronic hypertension, continue home meds denies pain continue to monitor Resp: liberated from ventilator, wean oxygen supplementation as tolerated, currently on 3L NC BiPAP PRN FEN/GI: tolerating cardiac diet will continue on IV Protonix given thrombocytopenia/anemia without source continue to monitor electrolytes continue to monitor blood glucose : agllego remains in place right femoral dialysis catheter for intermittent dialysis MSK: continue nursing skin checks per protocol grade 1 sacral decubitus ulcer, erythema DVT prophylaxis: SCDs Lines: left subclavian CVC right femoral dialysis catheter right IJ CVC removes rectal tube gallego catheter for strict I/Os DISPO: continue to monitor cardiorespiratory status in INTENS[facility]ARE UNIT Subjective Principal diagnosis: Sepsis/Septic Shock Interval history: Patient seen and examined at bedside. He is currently sitting up in the chair. Reports of anxiety and hypoxia overnight. He required escalation of his oxygen requirement to BiPAP for 2 hours and was then switch back over to 3 L nasal cannula. Denies any shortness of breath at this time. No signs of active bleeding at this time. He denies any hemoptysis or hematemesis. There is no blood in his rectal tube. Urine is dark. Denies any other symptoms such as chest pain, headache, abdominal pain, nausea or vomiting. Platelets continue to remain below currently on his 1st unit of platelet infusion awaiting a 2nd unit. He has received a total of 4 units packed red blood cells and 5 units platelets, pending additional 6th during his hospital admission. Patient tolerated dialysis last night through the exchanged right femoral dialysis catheter. Objective PUL Vital signs: Last Vital Signs Temp 98.6 F 05/04/17 06:20 Pulse 84 05/04/17 07:42 Resp 16 05/04/17 07:00 BP 156/77 05/04/17 07:00 Pulse Ox 96 05/04/17 07:00 General appearance: no acute distress, alert, other (Appears to have more energy ) Eyes: nonicteric ENT: oropharynx moist Neck: other (right IJ CVC removed, no expanding hematoma, dressing is in place c /d/i, it is not saturated with blood or any active bleeding, trachea is midline, ) Effort: normal Auscultation: bilateral: clear, diminished breath sounds Cardiovascular: regular rate and rhythm Gastrointestinal: normoactive bowel sounds, soft, non-tender, non-distended Integumentary: normal, decubitus ulcer (Sacrum) Extremities: no cyanosis, no edema, no clubbing, pink and warm, no ischemia or petechiae Musculoskeletal: no deformities, ROM normal normal mental status, non-focal exam, pupils equal and round, motor strength normal and symmetric mood appropriate, affect normal Results - Laboratory Findings CBC and BMP: 05/04/17 04:00 05/04/17 04:00 ABG ABG pH 7.46 pH Units (7.32-7.45) H 05/01/17 04:55 ABG pCO2 37 mmHg (35-45) 05/01/17 04:55 ABG pO2 60 mmHg (85-104) L 05/01/17 04:55 ABG O2 Saturation 92 % (95-98) L 05/01/17 04:55 PT/INR, D-dimer PT 15.5 Seconds (9.4-12.1) H 05/02/17 00:39 D-Dimer 5447 ng/mLFEU (0-500) H 04/21/17 05:41 Abnormal lab findings: Abnormal lab results RBC 2.98 M/mcL (4.19-5.50) L 05/04/17 04:00 Hgb 8.4 g/dL (12.9-16.9) L 05/04/17 04:00 Hct 24.8 % (37.5-50.1) L 05/04/17 04:00 Plt Count 8 K/mcL (140-400) L* D 05/04/17 04:00 Band Neutrophils % 8.0 % (0-4) H 04/29/17 07:46 Metamyelocytes % 4.0 % (0) H 04/29/17 07:46 Myelocytes % 5.0 % (0) H 04/27/17 09:30 Promyelocytes % 2.0 % (0) H 04/27/17 09:30 Blast Cells % 1.0 % (0) H 04/27/17 09:30 Nucleated RBCs/100 WBC 0.2 /100 WBC (0) H 05/04/17 04:00 Reactive Lymphocytes Present (Not Present) A 04/28/17 03:15 Toxic Granulation Present (Not Present) A 05/02/17 15:40 Toxic Vacuolation Present (Not Present) A 04/21/17 14:25 Platelet Estimate Marked Decrease (Normal) L 05/02/17 15:40 Immature Plt Fraction 9.5 % (1.1-6.1) H 05/04/17 04:00 PT 15.5 Seconds (9.4-12.1) H 05/02/17 00:39 Fibrinogen 736 mg/dL (169-393) H* 05/03/17 16:33 D-Dimer 5447 ng/mLFEU (0-500) H 04/21/17 05:41 ABG pH 7.46 pH Units (7.32-7.45) H 05/01/17 04:55 ABG pO2 60 mmHg (85-104) L 05/01/17 04:55 ABG Total CO2 27 mEq/L (20-26) H 05/01/17 04:55 ABG O2 Saturation 92 % (95-98) L 05/01/17 04:55 VBG pH 7.44 pH Units (7.32-7.42) H 05/01/17 05:37 VBG pCO2 36 mmHg (41-51) L 05/01/17 05:37 VBG pO2 157 mmHg (25-50) H 05/01/17 05:37 Sodium 135 mEq/L (136-145) L 05/04/17 04:00 BUN 47 mg/dL (8-23) H 05/04/17 04:00 Creatinine 3.94 mg/dL (0.70-1.30) H 05/04/17 04:00 Est GFR ( Amer) 19 (> 60) L 05/04/17 04:00 Est GFR (Non-Af Amer) 16 (> 60) L 05/04/17 04:00 Glucose 116 mg/dL (70-105) H 05/04/17 04:00 POC Glucose 158 (58-89) H 05/03/17 23:39 Calcium 7.9 mg/dL (8.6-10.3) L 05/04/17 04:00 Venous Ioniz Calcium 0.89 mmol/L (1.15-1.35) L 05/02/17 10:26 Total Bilirubin 1.2 mg/dL (0.3-1.0) H 05/03/17 16:33 Direct Bilirubin 0.5 mg/dL (0.0-0.2) H 05/03/17 16:33 Troponin I 4.23 ng/mL (< 0.04) H* 04/21/17 14:25 Albumin 2.7 g/dL (3.5-5.7) L 05/03/17 16:33 Globulin 4.1 g/dL (2.4-3.5) H 05/03/17 16:33 Albumin/Globulin Ratio 0.7 (1.1-2.2) L 05/03/17 16:33 HDL Cholesterol 27 mg/dL (40-59) L 04/20/17 03:48 Vancomycin Trough 39.7 mcg/mL (10-20) H* 04/21/17 12:50 Staphylococcus sp PCR DETECTED (Not Detect) A 04/20/17 03:48 Staph aureus (PCR) DETECTED (Not Detect) A 04/20/17 03:48 - Microbiology Findings Microbiology Findings: Microbiology, Last 48 Hours 04/27/17 07:17 Blood Culture - Final Peripheral Venipuncture No growth. 04/27/17 07:17 Blood Culture - Final Peripheral Venipuncture No growth. - Clinical Findings Intake & Output: Intake & Output 05/03/17 05/03/17 05/04/17 15:59 23:59 07:59 Intake Total 800 / 800 200 / 200 580 / 580 Output Total 100 / 100 4335 / 4335 300 / 300 Balance 700 / 700 -4135 / -4135 280 / 280 Weight 92.6 kg - VTE Documentation of Mechanical Device: Intermittent pneumatic compression device Consult Discharge Plan - Plan Referrals: Kannan Hurley DO [Primary Care Provider] - Juan Lake [Family Provider] - <Gely Tolbert - Last Filed: 05/04/17 16:07> Date of Encounter: 05/04/17 Objective PUL Vital signs: Last Vital Signs Temp 98.1 F 05/04/17 08:47 Pulse 72 05/04/17 11:00 Resp 20 05/04/17 11:00 BP 149/64 05/04/17 11:00 Pulse Ox 95 05/04/17 11:00 Results - Laboratory Findings CBC and BMP: 05/04/17 04:00 05/04/17 04:00 ABG ABG pH 7.46 pH Units (7.32-7.45) H 05/01/17 04:55 ABG pCO2 37 mmHg (35-45) 05/01/17 04:55 ABG pO2 60 mmHg (85-104) L 05/01/17 04:55 ABG O2 Saturation 92 % (95-98) L 05/01/17 04:55 PT/INR, D-dimer PT 15.5 Seconds (9.4-12.1) H 05/02/17 00:39 D-Dimer 5447 ng/mLFEU (0-500) H 04/21/17 05:41 Abnormal lab findings: Abnormal lab results RBC 2.98 M/mcL (4.19-5.50) L 05/04/17 04:00 Hgb 8.4 g/dL (12.9-16.9) L 05/04/17 04:00 Hct 24.8 % (37.5-50.1) L 05/04/17 04:00 Plt Count 8 K/mcL (140-400) L* D 05/04/17 04:00 Band Neutrophils % 8.0 % (0-4) H 04/29/17 07:46 Metamyelocytes % 4.0 % (0) H 04/29/17 07:46 Myelocytes % 5.0 % (0) H 04/27/17 09:30 Promyelocytes % 2.0 % (0) H 04/27/17 09:30 Blast Cells % 1.0 % (0) H 04/27/17 09:30 Nucleated RBCs/100 WBC 0.2 /100 WBC (0) H 05/04/17 04:00 Reactive Lymphocytes Present (Not Present) A 04/28/17 03:15 Toxic Granulation Present (Not Present) A 05/02/17 15:40 Toxic Vacuolation Present (Not Present) A 04/21/17 14:25 Platelet Estimate Marked Decrease (Normal) L 05/02/17 15:40 Immature Plt Fraction 9.5 % (1.1-6.1) H 05/04/17 04:00 PT 15.5 Seconds (9.4-12.1) H 05/02/17 00:39 Fibrinogen 736 mg/dL (169-393) H* 05/03/17 16:33 D-Dimer 5447 ng/mLFEU (0-500) H 04/21/17 05:41 ABG pH 7.46 pH Units (7.32-7.45) H 05/01/17 04:55 ABG pO2 60 mmHg (85-104) L 05/01/17 04:55 ABG Total CO2 27 mEq/L (20-26) H 05/01/17 04:55 ABG O2 Saturation 92 % (95-98) L 05/01/17 04:55 VBG pH 7.44 pH Units (7.32-7.42) H 05/01/17 05:37 VBG pCO2 36 mmHg (41-51) L 05/01/17 05:37 VBG pO2 157 mmHg (25-50) H 05/01/17 05:37 Sodium 135 mEq/L (136-145) L 05/04/17 04:00 BUN 47 mg/dL (8-23) H 05/04/17 04:00 Creatinine 3.94 mg/dL (0.70-1.30) H 05/04/17 04:00 Est GFR ( Amer) 19 (> 60) L 05/04/17 04:00 Est GFR (Non-Af Amer) 16 (> 60) L 05/04/17 04:00 Glucose 116 mg/dL (70-105) H 05/04/17 04:00 POC Glucose 158 (58-89) H 05/03/17 23:39 Calcium 7.9 mg/dL (8.6-10.3) L 05/04/17 04:00 Venous Ioniz Calcium 0.89 mmol/L (1.15-1.35) L 05/02/17 10:26 Total Bilirubin 1.2 mg/dL (0.3-1.0) H 05/03/17 16:33 Direct Bilirubin 0.5 mg/dL (0.0-0.2) H 05/03/17 16:33 Troponin I 4.23 ng/mL (< 0.04) H* 04/21/17 14:25 Albumin 2.7 g/dL (3.5-5.7) L 05/03/17 16:33 Globulin 4.1 g/dL (2.4-3.5) H 05/03/17 16:33 Albumin/Globulin Ratio 0.7 (1.1-2.2) L 05/03/17 16:33 HDL Cholesterol 27 mg/dL (40-59) L 04/20/17 03:48 Vancomycin Trough 39.7 mcg/mL (10-20) H* 04/21/17 12:50 Staphylococcus sp PCR DETECTED (Not Detect) A 04/20/17 03:48 Staph aureus (PCR) DETECTED (Not Detect) A 04/20/17 03:48 - Microbiology Findings Microbiology Findings: Microbiology, Last 48 Hours 04/27/17 07:17 Blood Culture - Final Peripheral Venipuncture No growth. 04/27/17 07:17 Blood Culture - Final Peripheral Venipuncture No growth. - Clinical Findings Intake & Output: Intake & Output 05/03/17 05/04/17 05/04/17 23:59 07:59 15:59 Intake Total 200 / 200 680 / 680 469 / 469 Output Total 4335 / 4335 300 / 300 0 / 0 Balance -4135 / -4135 380 / 380 469 / 469 Weight 92.6 kg - Attending Attestation I examined this patient and my medical decision-making was reviewed with the Resident Physician. I agree with the documented findings, disposition and treatment plan as described except to the extent set forth below. Patient seen and examined. Labs, radiology, chart personally reviewed. Agree with resident's history and physical, assessment, plan with following comments: [employer]: Patient follows commands, Pulmonary: Acceptable oxygenation and ventilation encourage incentive spirometry and BiPAP when necessary Cardiovascular: stable and blood pressure under better control GI: Nutrition per dietary and GI prophylaxis per routine Heme: DVT prophylaxis per routine. Patient remains thrombocytopenic and transfuse platelets, however there is no obvious source of bleeding. Discussed with hematology and also ID for changing antibiotic ID: Continue antibiotics and plan to de-escalation Renal; urine out put and renal funtion reviewed Endorcine: blood glucose is monitored Lines: all lines checked and no evidence of infections Skin: skin care to prevent pressure ulcers per nursing routine care Continue monitoring can ICU and physical therapy.
[2017-05-04] MEDS: amLODIPine 5 MG TABLET PO SCH (07:52)
[2017-05-04] MEDS: Chlorhexidine Rinse 15 ML MOUTHWASH MM SCH ×2 (07:52→19:27)
[2017-05-04] MEDS: Isosorbide MONOnitrate (24 HR) 30 MG TAB.ER.24H PO SCH (07:52)
--- NOTE | 2017-05-04 08:48 | Infectious Disease Progress No ---
Date of Encounter: 05/04/17 Time of Encounter: 08:47 - Assessment and Plan (1) Staphylococcus aureus bacteremia with sepsis Current Visit: Yes Status: Acute MSSA bacteremia may be secondary to left wrist infection versus MSSA pneumonia. All cultures grew same bacteria with similar sensitivities. - Patient currently on day 12 Nafcillin 2 g IV every 4 hours - Blood cultures no growth since 04/22/2017 - Vitals are stable Microbiology: Sputum culture 04/27 (+) Staphylococcus aureus Blood culture peripheral 04/27 (-) no growth Sputum culture 04/24 (+) light colonies staph aureus Blood culture peripheral 04/22 (-) no growth Blood culture peripheral 04/20 (+) MSSA Wound culture Lt wrist 04/20 (+) MSSA Anaerobic culture Lt wrist 04/20 (-) no anaerobes were recovered - Echocardiogram demonstrated LVEF 45-50%, mild global left ventricular systolic dysfunction, normal left ventricular atrial size, normal right atrial size, poorly visualized. No comment on valvular structure or negative for endocarditis. - Patient will need LYDIA as CTA has concerning findings for possible septic emboli. Antibiotics: Nafcillin 2gm IV Q4hr -treatment duration 4 weeks from negative blood culture 04/22/17 (Anticipated end date 05/21/17). (2) Methicillin susceptible Staphylococcus aureus pneumonia Current Visit: Yes Status: Acute MSSA positive sputum cultures on 04/24/2017, 05/07/2017 Risk Factors: MSSA-positive bacteremia and left wrist wound; possibly metastatic seeding from bacteremia. Patient also hospitalized and underwent cardiac catheterization with stent placement 3 days prior to presentation. - Chest x-ray demonstrates diffuse patchy infiltrates concerning for pneumonia - Chest CTA demonstrated multifocal nodular consolidations noted throughout both lung [place] which were concerning for pneumonia with small bilateral pleural effusions. - Antibiotics: Nafcillin 2 g IV every 4 hours (day# 12) 05/04: no changes over night. Patient will still need LYDIA and continue on current antibiotic therapy. Qualifiers: Laterality: bilateral Lung location: unspecified part of lung Qualified Code(s): J15.211 - Pneumonia due to Methicillin susceptible Staphylococcus aureus (3) Wound infection Current Visit: Yes Status: Acute Left wrist wound and skin infection which grew MSSA susceptible to current therapy. - Possible cause of bacteremia (4) Thrombocytopenia Current Visit: Yes Status: Acute Platelets 8 in the setting of acute illness, postcardiac arrest, MSSA positive pneumonia, bacteremia and skin infection. - Potential risk of ITP - Management per hematology and primary team. - Subjective Interval history: Mr. Jarvis has been seen and evaluated. No acute changes over night. Denies any fevers, chills, diaphoresis, productive cough, chest pain or worsening of SOB. Has no further questions at this time for infectious disease. Infect Dis PN-Objective Data - Labs CBC & Chem 7: 05/04/17 04:00 05/04/17 04:00 Labs: Laboratory Results - last 24 hr 05/01/17 05/03/17 05/03/17 17:55 04:26 06:54 WBC RBC Hgb Hct MCV MCH MCHC RDW Plt Count MPV Immature Gran % Seg Neutrophils % Lymphocytes % Monocytes % Eosinophils % Basophils % Neutrophils # Lymphocytes # Monocytes # Eosinophils # Basophils # Nucleated RBCs/100 WBC Immature Plt Fraction Fibrinogen Sodium Potassium Chloride Carbon Dioxide BUN Creatinine Est GFR ( Amer) Est GFR (Non-Af Amer) BUN/Creatinine Ratio Glucose POC Glucose 80 Calculated Osmolality Calcium Total Bilirubin Direct Bilirubin Indirect Bilirubin AST ALT Alkaline Phosphatase Serum Total Protein Albumin Globulin Albumin/Globulin Ratio Hep Bs Antigen Nonreactive Blood Type O POSITIVE Antibody Screen NEGATIVE Crossmatch See Detail 05/03/17 05/03/17 05/03/17 07:39 12:16 15:42 WBC RBC Hgb Hct MCV MCH MCHC RDW Plt Count MPV Immature Gran % Seg Neutrophils % Lymphocytes % Monocytes % Eosinophils % Basophils % Neutrophils # Lymphocytes # Monocytes # Eosinophils # Basophils # Nucleated RBCs/100 WBC Immature Plt Fraction Fibrinogen Sodium Potassium Chloride Carbon Dioxide BUN Creatinine Est GFR ( Amer) Est GFR (Non-Af Amer) BUN/Creatinine Ratio Glucose POC Glucose 94 H 108 H 111 H Calculated Osmolality Calcium Total Bilirubin Direct Bilirubin Indirect Bilirubin AST ALT Alkaline Phosphatase Serum Total Protein Albumin Globulin Albumin/Globulin Ratio Hep Bs Antigen Blood Type Antibody Screen Crossmatch 05/03/17 05/03/17 05/03/17 16:33 16:33 19:10 WBC RBC Hgb Hct MCV MCH MCHC RDW Plt Count MPV Immature Gran % Seg Neutrophils % Lymphocytes % Monocytes % Eosinophils % Basophils % Neutrophils # Lymphocytes # Monocytes # Eosinophils # Basophils # Nucleated RBCs/100 WBC Immature Plt Fraction Fibrinogen 736 H* Sodium Potassium Chloride Carbon Dioxide BUN Creatinine Est GFR ( Amer) Est GFR (Non-Af Amer) BUN/Creatinine Ratio Glucose POC Glucose 138 H Calculated Osmolality Calcium Total Bilirubin 1.2 H Direct Bilirubin 0.5 H Indirect Bilirubin 0.7 AST 36 ALT 26 Alkaline Phosphatase 61 Serum Total Protein 6.8 Albumin 2.7 L Globulin 4.1 H Albumin/Globulin Ratio 0.7 L Hep Bs Antigen Blood Type Antibody Screen Crossmatch 05/03/17 05/04/17 05/04/17 23:39 04:00 04:00 WBC 8.3 RBC 2.98 L Hgb 8.4 L Hct 24.8 L MCV 83.2 MCH 28.2 MCHC 33.9 RDW 14.2 Plt Count 8 L* D MPV 11.4 Immature Gran % 0.6 Seg Neutrophils % 82.4 Lymphocytes % 8.2 Monocytes % 8.2 Eosinophils % 0.4 Basophils % 0.2 Neutrophils # 6.8 Lymphocytes # 0.7 Monocytes # 0.7 Eosinophils # 0.0 Basophils # 0.0 Nucleated RBCs/100 WBC 0.2 H Immature Plt Fraction 9.5 H Fibrinogen Sodium 135 L Potassium 3.8 Chloride 98 Carbon Dioxide 24 BUN 47 H Creatinine 3.94 H Est GFR ( Amer) 19 L Est GFR (Non-Af Amer) 16 L BUN/Creatinine Ratio 12 Glucose 116 H POC Glucose 158 H Calculated Osmolality 293 Calcium 7.9 L Total Bilirubin Direct Bilirubin Indirect Bilirubin AST ALT Alkaline Phosphatase Serum Total Protein Albumin Globulin Albumin/Globulin Ratio Hep Bs Antigen Blood Type Antibody Screen Crossmatch Cultures: Cultures 04/27/17 07:17 Blood Culture - Final Peripheral Venipuncture No growth. 04/27/17 07:17 Blood Culture - Final Peripheral Venipuncture No growth. 04/27/17 13:52 Sputum Culture - Final Sputum Staphylococcus aureus 04/22/17 12:35 Blood Culture - Final Peripheral Venipuncture No growth. 04/22/17 12:35 Blood Culture - Final Peripheral Venipuncture No growth. 04/24/17 11:15 Sputum Culture - Final Sputum Staphylococcus aureus 04/20/17 10:15 Anaerobic Culture - Final Left Wrist - Abscess No anaerobes were recovered. 04/20/17 03:48 Blood Culture - Final Peripheral Venipuncture Staphylococcus aureus 04/20/17 03:48 Blood Culture - Final Peripheral Venipuncture Staphylococcus aureus 04/20/17 10:15 Wound Culture - Final Left Wrist - Abscess Staphylococcus aureus Serology 03/15/18 03/09/18 03/02/18 Range/Units 06:54 16:25 10:55 Stl C. diff Tox B Gene Negative (Negative) A. baumannii (PCR) (Not Detect) Chlamy pneumoniae PCR Not Detected (Not Detect) Adenovirus (PCR) Not Detected (Not Detect) B. pertussis DNA (PCR) Not Detected (Not Detect) B.parapertussis DNA PCR Not Detected (Not Detect) Aixa albicans (PCR) (Not Detect) C. glabrata (PCR) (Not Detect) C. krusei (PCR) (Not Detect) C. parapsilosis (PCR) (Not Detect) C. tropicalis (PCR) (Not Detect) Coronavirus OC43 (PCR) Not Detected (Not Detect) Coronavirus HKU1 (PCR) Not Detected (Not Detect) Coronavirus 229E (PCR) Not Detected (Not Detect) Coronavirus NL63 (PCR) Not Detected (Not Detect) Enterobacteriac sp PCR (Not Detect) E. cloacae complex PCR (Not Detect) Enterococcus sp PCR (Not Detect) E. coli (PCR) (Not Detect) H. influenzae (PCR) (Not Detect) Hep Bs Antigen Nonreactive (Nonreactive) Human Metapneumovir PCR Not Detected (Not Detect) Influenza A (H1) PCR Not Detected (Not Detect) Influ A (H1N1/09) PCR Not Detected (Not Detect) Influenza A (H3) PCR Not Detected (Not Detect) Influenza A Untype (PCR) Not Detected (Not Detect) Influenza Type B (PCR) Not Detected (Not Detect) Klebsiella oxytoca PCR (Not Detect) Klebsiella pneumoniae (Not Detect) List. monocytogenes PCR (Not Detect) M.pneumoniae DNA (PCR) Not Detected (Not Detect) N. meningitidis (PCR) (Not Detect) Parainfluenza 1 (PCR) Not Detected (Not Detect) Parainfluenza 2 (PCR) Not Detected (Not Detect) Parainfluenza 3 (PCR) Not Detected (Not Detect) Parainfluenza 4 (PCR) Not Detected (Not Detect) Proteus species (PCR) (Not Detect) RSV (PCR) Not Detected (Not Detect) Entero/Rhino (PCR) Not Detected (Not Detect) Serratia marcescens PCR (Not Detect) Staphylococcus sp PCR (Not Detect) Staph aureus (PCR) (Not Detect) mecA-Methicil Res Gene (Not Detect) Streptococcus sp PCR (Not Detect) Group A Strep DNA (Not Detect) Group B Strep (PCR) (Not Detect) Strep pneumoniae (PCR) (Not Detect) P. aeruginosa (PCR) (Not Detect) Mariam/B-Vanco Res Genes (Not Detect) KPC (blaKPC) Detect PCR (Not Detect) 04/20/17 Range/Units 03:48 Stl C. diff Tox B Gene (Negative) A. baumannii (PCR) Not Detected (Not Detect) Chlamy pneumoniae PCR (Not Detect) Adenovirus (PCR) (Not Detect) B. pertussis DNA (PCR) (Not Detect) B.parapertussis DNA PCR (Not Detect) Aixa albicans (PCR) Not Detected (Not Detect) C. glabrata (PCR) Not Detected (Not Detect) C. krusei (PCR) Not Detected (Not Detect) C. parapsilosis (PCR) Not Detected (Not Detect) C. tropicalis (PCR) Not Detected (Not Detect) Coronavirus OC43 (PCR) (Not Detect) Coronavirus HKU1 (PCR) (Not Detect) Coronavirus 229E (PCR) (Not Detect) Coronavirus NL63 (PCR) (Not Detect) Enterobacteriac sp PCR Not Detected (Not Detect) E. cloacae complex PCR Not Detected (Not Detect) Enterococcus sp PCR Not Detected (Not Detect) E. coli (PCR) Not Detected (Not Detect) H. influenzae (PCR) Not Detected (Not Detect) Hep Bs Antigen (Nonreactive) Human Metapneumovir PCR (Not Detect) Influenza A (H1) PCR (Not Detect) Influ A (H1N1/09) PCR (Not Detect) Influenza A (H3) PCR (Not Detect) Influenza A Untype (PCR) (Not Detect) Influenza Type B (PCR) (Not Detect) Klebsiella oxytoca PCR Not Detected (Not Detect) Klebsiella pneumoniae Not Detected (Not Detect) List. monocytogenes PCR Not Detected (Not Detect) M.pneumoniae DNA (PCR) (Not Detect) N. meningitidis (PCR) Not Detected (Not Detect) Parainfluenza 1 (PCR) (Not Detect) Parainfluenza 2 (PCR) (Not Detect) Parainfluenza 3 (PCR) (Not Detect) Parainfluenza 4 (PCR) (Not Detect) Proteus species (PCR) Not Detected (Not Detect) RSV (PCR) (Not Detect) Entero/Rhino (PCR) (Not Detect) Serratia marcescens PCR Not Detected (Not Detect) Staphylococcus sp PCR DETECTED A (Not Detect) Staph aureus (PCR) DETECTED A (Not Detect) mecA-Methicil Res Gene Not Detected (Not Detect) Streptococcus sp PCR Not Detected (Not Detect) Group A Strep DNA Not Detected (Not Detect) Group B Strep (PCR) Not Detected (Not Detect) Strep pneumoniae (PCR) Not Detected (Not Detect) P. aeruginosa (PCR) Not Detected (Not Detect) Mariam/B-Vanco Res Genes Not Detected (Not Detect) KPC (blaKPC) Detect PCR Not Detected (Not Detect) - Impressions Impressions Guidance Needle Placement Ultrasound 05/01/17 00:00 IMPRESSION: Successful ultrasound and fluoroscopy guided non-tunneled temporary triple-lumen hemodialysis catheter placement. D/ / Josh Salazar MD / Josh Salazar MD Interpreting Provider: Josh Salazar MD Chest X-Ray 05/01/17 14:19 IMPRESSION: Right internal jugular dialysis catheter with tip at the cavoatrial junction. No pneumothorax. Small layering right pleural effusion. D/ / 05/01/2017 15:06:13 Bora Huitron MD / [facility] Interpreting Provider: Bora Huitron MD Insertion Non-Tunneled Catheter 05/03/17 00:00 IMPRESSION: Successful temporary hemodialysis catheter exchange. A postprocedure KUB has been performed, confirming adequate placement. The catheter is ready for use. D/ / 05/03/2017 12:59:48 Sukhwinder Dykes MD / [facility] Interpreting Provider: Sukhwinder Dykes MD X-Ray 05/03/17 11:17 IMPRESSION: Femoral catheter terminating at the level of L3. D/ / 05/03/2017 12:33:21 Bora Huitron MD / [facility] Interpreting Provider: Bora Huitron MD Chest X-Ray 05/04/17 04:00 IMPRESSION: Interval removal of right IJ dialysis catheter. Findings of pleural effusions, bibasilar atelectasis, and multifocal nodular opacities appear similar to the previous examination. D/ / Giuliano Mandujano MD / Giuliano Mandujano MD Interpreting Provider: Giuliano Mandujano MD Exam - Constitutional Vitals: Temp Pulse Resp BP Pulse Ox 98.6 F 82 14 148/72 96 05/04/17 06:20 05/04/17 08:00 05/04/17 08:00 05/04/17 08:00 05/04/17 08:00 - ENT ENT exam: Present: mucous membranes moist - Respiratory Respiratory exam: Present: CTAB - Cardiovascular Cardiovascular exam: Present: RRR, +S1, +S2 - GI/Abdominal GI/Abdominal exam: Present: distended, hypoactive bowel sounds - Extremities Exam Additional comments: Symmetric bilaterally Distal LE have petechiae - Right femoral HD site without erythema, edema, hematoma or discharge - Left wrist wound without erythema, edema, healing appropriately. - VTE Documentation of Mechanical Device: Intermittent pneumatic compression device Consult Discharge Plan - Plan Referrals: Kannan Hurley DO [Primary Care Provider] - Juan Lake [Family Provider] - - Attending Attestation I examined this patient and my medical decision-making was reviewed with the Resident Physician. I agree with the documented findings, disposition and treatment plan as described except to the extent set forth below.
--- NOTE | 2017-05-04 08:55 | Nephrology Progress Note ---
Date of Encounter: 05/04/17 Time of Encounter: 08:53 - Assessment and Plan (1) NANCY (acute kidney injury) Current Visit: Yes Status: Acute I reviewed the sign-out/hand-off notes from my colleague Dr. Young: he developed improved hemodynamics and transitioned off CVVHDF to iHD with his last HD yesterday. The right femoral temporary HD catheter (that I had placed a few Saturdays ago), remains in place, however the recently placed Right IJ temporary HD catheter was removed overnight d/t severe bleeding in the setting of severe thrombocytopenia. I also read the notes from the Hematology consult last night: that the peripheral smear did not reveal schistocytes, so the odds of a TMA induced NANCY are lower. Biochemically he was stable and his CXR demonstrated no overt fluid overload, so will hold off on extra HD today. Will reassess tomorrow for iHD via the right femoral temporary HD catheter. Continue to follow a renal protective strategy and strict I/Os and daily weights. (2) Hyponatremia Current Visit: Yes Status: Acute Improved. (3) Abdominal compartment syndrome Current Visit: Yes Status: Resolved At the beginning of his presentation / admission, he had a very distended/tense abd. This now appears resolved. Qualifiers: Compartment syndrome type: non-traumatic Qualified Code(s): M79.A3 - Nontraumatic compartment syndrome of abdomen (4) Septic shock Current Visit: Yes Status: Resolved ICU following. Appears resolved (5) Methicillin susceptible Staphylococcus aureus pneumonia Current Visit: Yes Status: Acute As per ICU/Pulm Qualifiers: Laterality: bilateral Lung location: unspecified part of lung Qualified Code(s): J15.211 - Pneumonia due to Methicillin susceptible Staphylococcus aureus (6) Thrombocytopenia Current Visit: Yes Status: Acute Followed by Hematology who read peripheral smear and did not suspect DIC or see schistocytes, per report. Subjective Principal diagnosis: Sepsis/Septic Shock Interval history: Pt was s/e and his was at bedside. He was converted to iHD and extubated earlier this week. He did not affirm N/V and said that he still feels generally week. Overnight he had a bleeding issue; there was an acute hematology consult and the RIJ temporary HD catheter was removed. I spoke with the [employer] AC[employer]ISITION ANALYST earlier today. I also answered all his and the 's questions. Objective - Vital Signs Vital signs: Vital Signs Temp Pulse Resp BP Pulse Ox 05/04/17 08:47 98.1 F 96 16 137/70 96 05/04/17 08:00 82 14 148/72 96 05/04/17 07:42 84 05/04/17 07:00 80 16 156/77 96 05/04/17 06:20 98.6 F 86 27 178/80 95 05/04/17 06:05 98.6 F 79 14 167/68 94 05/04/17 06:00 7 18 166/69 94 05/04/17 05:05 98.9 F 05/04/17 05:00 69 16 166/59 95 05/04/17 04:00 81 18 144/49 93 05/04/17 03:47 21 146/51 95 05/04/17 03:00 70 21 153/57 94 05/04/17 02:00 65 22 176/60 95 05/04/17 01:00 78 28 186/62 94 05/04/17 00:00 98.2 F 77 25 159/57 94 05/03/17 23:38 23 158/61 94 05/03/17 23:00 84 28 169/61 90 05/03/17 22:00 78 23 141/71 92 05/03/17 21:00 86 20 129/64 90 05/03/17 20:12 97.6 F 05/03/17 20:00 85 14 161/52 90 05/03/17 19:05 99.1 F 17 127/48 05/03/17 19:00 84 21 107/46 92 05/03/17 18:30 111/55 05/03/17 18:15 103/54 05/03/17 18:00 107/55 05/03/17 17:59 76 18 100/52 95 05/03/17 17:45 113/54 05/03/17 17:30 101/55 05/03/17 17:15 106/55 05/03/17 17:00 80 16 107/54 95 05/03/17 16:45 108/56 18 16:39 98.9 F 05/03/17 16:30 106/57 18 16:15 106/57 05/03/17 16:00 70 20 121/60 95 05/03/17 15:45 132/62 18 15:30 133/65 03/15/18 15:15 159/59 05/03/17 15:00 70 20 124/63 93 05/03/17 14:45 153/60 05/03/17 14:30 98.9 F 17 170/56 05/03/17 14:00 63 18 179/56 92 05/03/17 13:00 65 16 194/63 92 05/03/17 12:00 98.4 F 61 20 188/57 94 05/03/17 11:00 66 16 183/56 94 05/03/17 10:00 75 20 140/66 95 05/03/17 09:11 98.9 F 05/03/17 09:00 57 24 187/56 94 Intake and Output 05/03/17 05/04/17 05/04/17 23:59 07:59 15:59 Intake Total 200 / 200 680 / 680 219 / 219 Output Total 4335 / 4335 300 / 300 Balance -4135 / -4135 380 / 380 219 / 219 Intake: IV Fluids 200 / 200 200 / 200 Nafcillin 2,000 MG In 0.9 % 200 / 200 200 / 200 Sodium Chloride (Mini-Bag +) 100 ML @ 200 mls/hr IVPB Q4HR [facility] Rx#:[id number] Oral 480 / 480 Blood Product 0 / 0 219 / 219 Platelet Ph Acd-A Pasc Lp 2 0 / 0 219 / 219 Unit [id number] Output: Urine 0 / 0 Total Dialysis (HD) Output 4100 / 4100 Rectal Tube 200 / 200 300 / 300 Catheter 35 / 35 0 / 0 Other: Stool Color Yellow Green Weight 92.6 kg Blood Glucose* 138 112 Hemodialysis Net Fluid Removed 3600 (mL) Patient Weight 05/04/17 23:59 Weight 92.6 kg - General Appearance General appearance: Present: well-developed, appears started age, fatigue, frail EENT: Present: ATNC, PERRL, mucous membranes moist Neck: Present: supple Respiratory: Present: course breath sounds Cardiology: Present: edema (only trace hand and ankle edema b/l), regular rate, regular rhythm, normal S1, normal S2 Dialysis Vascular Access: Venous Catheter (right femorary temporary HD catheter had dressing that was C/D/I and was not tender to palpation) Integumentary: Present: warm and dry Neurologic: Present: no focal deficit, no asterixis, alert and oriented x3 Musculoskeletal: Present: no cyanosis, no clubbing Psychiatric: Present: mood/affect appropriate, cooperative - Lab 05/04/17 04:00 05/04/17 04:00 Most recent lab results ABG pH 7.46 pH Units (7.32-7.45) H 05/01/17 04:55 ABG pCO2 37 mmHg (35-45) 05/01/17 04:55 ABG pO2 60 mmHg (85-104) L 05/01/17 04:55 ABG HCO3 26 mEq/L (21-27) 05/01/17 04:55 ABG O2 Saturation 92 % (95-98) L 05/01/17 04:55 Calcium 7.9 mg/dL (8.6-10.3) L 05/04/17 04:00 Phosphorus 3.0 mg/dL (2.7-4.5) 04/27/17 03:49 Magnesium 2.1 mg/dL (1.6-2.6) 04/28/17 03:15 - VTE Documentation of Mechanical Device: Intermittent pneumatic compression device Consult Discharge Plan - Plan Referrals: Kannan Hurley DO [Primary Care Provider] - Juan Lake [Family Provider] -
[2017-05-04 14:02] LABS: INR 1.6; Prothrombin Time 16.9 Seconds (9.4-12.1)
[2017-05-04 14:04] LABS: Activated Partial Thrombo Time 30.4 Seconds (26.0-36.0)
[2017-05-04 14:32] LABS: Hepatitis B Surface Antibody 5.77 mIU/mL
[2017-05-04] MEDS ORDERED: Albuterol 2.5 MG/3 ML NEBULIZER ONE (16:52)
[2017-05-04] MEDS: Acetylcysteine 10% 2 ML INHSOL IH SCH ×2 (16:56→22:25)
[2017-05-04] MEDS: Albuterol 2.5 MG/3 ML NEBULIZER IH SCH ×2 (16:56→22:24)
[2017-05-04] MEDS: WATER FOR INJ IVP SCH (17:22)
[2017-05-04] MEDS: CEFAZOLIN IVP SCH (17:22)
[2017-05-04 17:45] LABS: Basophils % 0.3 %; Eosinophils # 0.1 K/mcL (0.0-0.6); Eosinophils % 0.6 %; Hematocrit 24.6 % (37.5-50.1); Hemoglobin 8.3 g/dL (12.9-16.9); Immature Granulocytes % 0.6 % (0-4); Lymphocytes # 0.7 K/mcL (0.6-4.6); Lymphocytes % 9.2 %; Mean Corpuscular HGB Conc 33.7 g/dL (31.6-35.5); Mean Corpuscular Hemoglobin 28.3 pg (28.0-33.3); Mean Platelet Volume 11.6 fL (9.4-12.4); Monocytes # 0.6 K/mcL (0.0-1.3); Neutrophils # 6.3 K/mcL (1.6-8.9); Red Blood Count 2.93 M/mcL (4.19-5.50); Red Cell Distribution Width 14.3 % (11.5-14.5); Segmented Neutrophils % 81.3 %
[2017-05-04 17:51] LABS: Platelet Count 19 K/mcL (140-400)
[2017-05-05] MEDS: Insulin LISPRO 300 UNITS/3 ML VIAL SQ SCH ×6 (00:25→20:47)
[2017-05-05 04:16] LABS: Hemoglobin 7.6 g/dL (12.9-16.9)
[2017-05-05 04:18] LABS: Basophils % 0.4 %; Eosinophils % 0.3 %; Immature Granulocytes % 0.9 % (0-4); Lymphocytes # 0.5 K/mcL (0.6-4.6); Lymphocytes % 7.1 %; Mean Corpuscular Hemoglobin 27.7 pg (28.0-33.3); Mean Corpuscular Volume 83.9 fL (83.0-100.0); Mean Platelet Volume 11.4 fL (9.4-12.4); Monocytes # 0.6 K/mcL (0.0-1.3); Monocytes % 8.2 %; Nucleated Red Blood Cells 0.4 /100 WBC (0); Red Blood Count 2.74 M/mcL (4.19-5.50); Red Cell Distribution Width 14.4 % (11.5-14.5); Segmented Neutrophils % 83.1 %
[2017-05-05 04:29] LABS: Neutrophils # 5.7 K/mcL (1.6-8.9)
[2017-05-05 04:30] LABS: Platelet Count 29 K/mcL (140-400)
[2017-05-05 04:32] LABS: Calcium 7.5 mg/dL (8.6-10.3); Potassium 3.9 mEq/L (3.5-5.1)
[2017-05-05] MEDS: Pantoprazole 40 MG VIAL IVP SCH ×2 (06:57→16:42)
[2017-05-05] MEDS: Acetylcysteine 10% 2 ML INHSOL IH SCH ×3 (07:25→17:57)
[2017-05-05] MEDS: Albuterol 2.5 MG/3 ML NEBULIZER IH SCH ×3 (07:25→17:57)
[2017-05-05] MEDS ORDERED: 0.9 % Sodium Chloride 250 ML IVC PRN (07:38)
--- NOTE | 2017-05-05 07:40 | Nephrology Progress Note ---
Date of Encounter: 05/05/17 Time of Encounter: 07:39 - Assessment and Plan (1) NANCY (acute kidney injury) Current Visit: Yes Status: Acute Plan for HD today via the right femoral vein temporary HD catheter for clearance and fluid removal. Continue to follow a renal protective strategy and strict I/Os and daily weights. (2) Hyponatremia Current Visit: Yes Status: Acute Improved. (3) Abdominal compartment syndrome Current Visit: Yes Status: Resolved At the beginning of his presentation / admission, he had a very distended/tense abd. This now appears resolved. Qualifiers: Compartment syndrome type: non-traumatic Qualified Code(s): M79.A3 - Nontraumatic compartment syndrome of abdomen (4) Septic shock Current Visit: Yes Status: Resolved ICU following. Appears resolved (5) Methicillin susceptible Staphylococcus aureus pneumonia Current Visit: Yes Status: Acute As per ICU/Pulm Qualifiers: Laterality: bilateral Lung location: unspecified part of lung Qualified Code(s): J15.211 - Pneumonia due to Methicillin susceptible Staphylococcus aureus (6) Thrombocytopenia Current Visit: Yes Status: Acute Followed by Hematology who read peripheral smear and did not suspect DIC or see schistocytes, per report. Subjective Principal diagnosis: Sepsis/Septic Shock Interval history: Pt was s/e and his was at bedside. He did not affirm N/V and said that he still feels generally week. He reported increasing shortness of breath since his last HD treatment. His daughter was updated at the ICU bedside. Objective - Vital Signs Vital signs: Vital Signs Temp Pulse Resp BP Pulse Ox 05/05/17 07:25 22 99 05/05/17 06:00 98 22 157/71 99 05/05/17 05:00 89 24 182/63 98 05/05/17 04:00 97.6 F 63 22 196/72 97 05/05/17 03:00 74 25 159/67 95 05/05/17 02:00 71 23 172/65 94 05/05/17 01:00 65 26 157/65 94 05/05/17 00:00 97.7 F 76 20 148/73 95 05/04/17 23:00 86 26 174/65 94 05/04/17 22:26 25 96 05/04/17 22:00 91 31 180/71 95 05/04/17 21:00 90 28 161/68 94 05/04/17 19:55 87 36 171/58 96 05/04/17 19:24 97.9 F 79 34 179/63 97 05/04/17 19:09 100 F H 71 20 196/74 97 05/04/17 19:00 73 30 192/72 95 18 18:00 78 19 165/62 97 05/04/17 17:00 80 22 183/74 98 18 16:57 18 196/77 96 05/04/17 16:42 98 F 81 16 201/76 94 05/04/17 16:00 75 24 184/70 94 05/04/17 15:15 98.0 F 05/04/17 15:00 69 24 185/76 95 05/04/17 13:59 77 26 178/73 96 05/04/17 13:55 98.1 F 80 26 186/75 96 05/04/17 13:54 98.1 F 80 26 186/75 96 05/04/17 13:40 98.2 F 85 24 184/73 96 05/04/17 13:00 87 25 186/72 95 05/04/17 12:12 98.6 F 05/04/17 11:45 69 05/04/17 11:00 72 20 149/64 95 05/04/17 10:00 85 18 190/74 95 05/04/17 09:00 89 18 153/66 96 05/04/17 08:47 98.1 F 96 16 137/70 96 05/04/17 08:00 82 14 148/72 96 05/04/17 07:42 84 Intake and Output 05/04/17 05/04/17 05/05/17 15:59 23:59 07:59 Intake Total 929 / 929 602 / 602 Output Total 45 / 45 25 / 25 50 / 50 Balance 884 / 884 577 / 577 -50 / -50 Intake: IV Fluids 200 / 200 10 / 10 Ancef 500 MG In Water for inj. 10 / 10 (sterile) 10 ML @ 200 mls/hr IVP Q24H [facility] Rx#:[id number] Nafcillin 2,000 MG In 0.9 % 200 / 200 Sodium Chloride (Mini-Bag +) 100 ML @ 200 mls/hr IVPB Q4HR [facility] Rx#:[id number] Oral 510 / 510 Blood Product 219 / 219 592 / 592 Platelet Ph Acd-A Pasc Lp 2 219 / 219 Unit [id number] Platelet Pheresis Lp Irr 1st 0 / 0 302 / 302 Unit [id number] Platelet Pheresis Lp Irr 2nd 290 / 290 Unit [id number] Output: Urine 0 / 0 Rectal Tube 0 / 0 Catheter 45 / 45 25 / 25 50 / 50 Other: Meal Lunch Percent of Meal Consumed 40% Stool Size Smear Stool Consistency liquid soft Stool Color Brown Blood Glucose* 117 139 116 - General Appearance Exam: General appearance: Present: well-developed, appears started age, fatigue, frail EENT: Present: ATNC, PERRL, mucous membranes moist Neck: Present: supple Respiratory: Present: course breath sounds Cardiology: Present: edema (only trace hand and ankle edema b/l), regular rate, regular rhythm, normal S1, normal S2 Dialysis Vascular Access: Venous Catheter (right femorary temporary HD catheter had dressing that was C/D/I and was not tender to palpation) Integumentary: Present: warm and dry Neurologic: Present: no focal deficit, no asterixis, alert and oriented x3 Musculoskeletal: Present: no cyanosis, no clubbing Psychiatric: Present: mood/affect appropriate, cooperative - Lab 05/06/17 04:19 05/06/17 04:19 Most recent lab results ABG pH 7.46 pH Units (7.32-7.45) H 05/01/17 04:55 ABG pCO2 37 mmHg (35-45) 05/01/17 04:55 ABG pO2 60 mmHg (85-104) L 05/01/17 04:55 ABG HCO3 26 mEq/L (21-27) 05/01/17 04:55 ABG O2 Saturation 92 % (95-98) L 05/01/17 04:55 Calcium 7.5 mg/dL (8.6-10.3) L 05/05/17 04:00 Phosphorus 3.0 mg/dL (2.7-4.5) 04/27/17 03:49 Magnesium 2.1 mg/dL (1.6-2.6) 04/28/17 03:15 - VTE Documentation of Mechanical Device: Intermittent pneumatic compression device Consult Discharge Plan - Plan Referrals: Kannan Hurley DO [Primary Care Provider] - Juan Lake [Family Provider] -
[2017-05-05] MEDS ORDERED: 0.9 % Sodium Chloride 1,000 ML ONE (08:08)
[2017-05-05] MEDS: Isosorbide MONOnitrate (24 HR) 30 MG TAB.ER.24H PO SCH (08:33)
[2017-05-05] MEDS: Chlorhexidine Rinse 15 ML MOUTHWASH MM SCH ×2 (08:33→20:47)
[2017-05-05] MEDS: amLODIPine 5 MG TABLET PO SCH (08:33)
--- NOTE | 2017-05-05 08:42 | Pulmonology Progress Note ---
<Gely Tolbert M - Last Filed: 05/05/17 11:12> Date of Encounter: 05/05/17 Objective PUL Vital signs: Last Vital Signs Temp 97.7 F 05/05/17 07:25 Pulse 93 05/05/17 10:00 Resp 20 05/05/17 10:00 BP 148/62 05/05/17 10:00 Pulse Ox 96 05/05/17 10:00 Results - Laboratory Findings CBC and BMP: 05/05/17 04:00 05/05/17 04:00 ABG ABG pH 7.46 pH Units (7.32-7.45) H 05/01/17 04:55 ABG pCO2 37 mmHg (35-45) 05/01/17 04:55 ABG pO2 60 mmHg (85-104) L 05/01/17 04:55 ABG O2 Saturation 92 % (95-98) L 05/01/17 04:55 PT/INR, D-dimer PT 16.9 Seconds (9.4-12.1) H 05/04/17 13:30 D-Dimer 7347 ng/mLFEU (0-500) H 05/04/17 13:30 Abnormal lab findings: Abnormal lab results RBC 2.74 M/mcL (4.19-5.50) L 05/05/17 04:00 Hgb 7.6 g/dL (12.9-16.9) L 05/05/17 04:00 Hct 23.0 % (37.5-50.1) L 05/05/17 04:00 MCH 27.7 pg (28.0-33.3) L 05/05/17 04:00 Plt Count 29 K/mcL (140-400) L* 05/05/17 04:00 Band Neutrophils % 8.0 % (0-4) H 04/29/17 07:46 Metamyelocytes % 4.0 % (0) H 04/29/17 07:46 Myelocytes % 5.0 % (0) H 04/27/17 09:30 Promyelocytes % 2.0 % (0) H 04/27/17 09:30 Blast Cells % 1.0 % (0) H 04/27/17 09:30 Lymphocytes # 0.5 K/mcL (0.6-4.6) L 05/05/17 04:00 Nucleated RBCs/100 WBC 0.4 /100 WBC (0) H 05/05/17 04:00 Reactive Lymphocytes Present (Not Present) A 04/28/17 03:15 Toxic Granulation Present (Not Present) A 05/02/17 15:40 Toxic Vacuolation Present (Not Present) A 04/21/17 14:25 Platelet Estimate Marked Decrease (Normal) L 05/02/17 15:40 PT 16.9 Seconds (9.4-12.1) H 05/04/17 13:30 Fibrinogen 736 mg/dL (169-393) H* 05/03/17 16:33 D-Dimer 7347 ng/mLFEU (0-500) H 05/04/17 13:30 ABG pH 7.46 pH Units (7.32-7.45) H 05/01/17 04:55 ABG pO2 60 mmHg (85-104) L 05/01/17 04:55 ABG Total CO2 27 mEq/L (20-26) H 05/01/17 04:55 ABG O2 Saturation 92 % (95-98) L 05/01/17 04:55 VBG pH 7.44 pH Units (7.32-7.42) H 05/01/17 05:37 VBG pCO2 36 mmHg (41-51) L 05/01/17 05:37 VBG pO2 157 mmHg (25-50) H 05/01/17 05:37 Sodium 132 mEq/L (136-145) L 05/05/17 04:00 Chloride 95 mEq/L (98-107) L 05/05/17 04:00 Carbon Dioxide 19 mEq/L (23-29) L 05/05/17 04:00 BUN 78 mg/dL (8-23) H 05/05/17 04:00 Creatinine 6.39 mg/dL (0.70-1.30) H 05/05/17 04:00 Est GFR ( Amer) 11 (> 60) L 05/05/17 04:00 Est GFR (Non-Af Amer) 9 (> 60) L 05/05/17 04:00 Glucose 116 mg/dL (70-105) H 05/05/17 04:00 POC Glucose 125 (58-89) H 05/05/17 00:16 Calcium 7.5 mg/dL (8.6-10.3) L 05/05/17 04:00 Venous Ioniz Calcium 0.89 mmol/L (1.15-1.35) L 05/02/17 10:26 Total Bilirubin 1.2 mg/dL (0.3-1.0) H 05/03/17 16:33 Direct Bilirubin 0.5 mg/dL (0.0-0.2) H 05/03/17 16:33 Troponin I 4.23 ng/mL (< 0.04) H* 04/21/17 14:25 Albumin 2.7 g/dL (3.5-5.7) L 05/03/17 16:33 Globulin 4.1 g/dL (2.4-3.5) H 05/03/17 16:33 Albumin/Globulin Ratio 0.7 (1.1-2.2) L 05/03/17 16:33 HDL Cholesterol 27 mg/dL (40-59) L 04/20/17 03:48 Vancomycin Trough 39.7 mcg/mL (10-20) H* 04/21/17 12:50 Staphylococcus sp PCR DETECTED (Not Detect) A 04/20/17 03:48 Staph aureus (PCR) DETECTED (Not Detect) A 04/20/17 03:48 - Microbiology Findings Microbiology Findings: Microbiology, Last 48 Hours 04/27/17 07:17 Blood Culture - Final Peripheral Venipuncture No growth. - Clinical Findings Intake & Output: Intake & Output 05/04/17 05/05/17 05/05/17 23:59 07:59 15:59 Intake Total 602 / 602 Output Total 50 / 50 Balance 577 / 577 -50 / -50 Consult Discharge Plan - Plan Referrals: Kannan Hurley DO [Primary Care Provider] - Juan Lake [Family Provider] - - Attending Attestation I examined this patient and my medical decision-making was reviewed with the Resident Physician. I agree with the documented findings, disposition and treatment plan as described except to the extent set forth below. Patient seen and examined. Labs, radiology, chart personally reviewed. Agree with resident's history and physical, assessment, plan with following comments: CODING ANALYST: Patient follows commands, Pulmonary: Acceptable oxygenation and ventilation and continue incentive spirometry Cardiovascular: Hypertension to increase Coreg dose. GI: Nutrition per dietary and GI prophylaxis per routine Heme: DVT prophylaxis per routine with mechanical DVT prophylaxis because of the thrombocytopenia, monitor for now ID: Continue antibiotics and plan to de-escalation Renal; urine out put and renal funtion reviewed Endorcine: blood glucose is monitored Lines: all lines checked and no evidence of infections Skin: skin care to prevent pressure ulcers per nursing routine care <Torin Dial - Last Filed: 05/05/17 14:23> Date of Encounter: 05/05/17 Time of Encounter: 08:00 Assessment and Plan (1) Acute respiratory failure with hypoxia Current Visit: Yes Status: Acute Acute respiratory failure in the setting of cardiac arrest secondary to fluid overload versus ARDS currently tolerating nasal cannula continues to have difficulty with HS BiPAP continue to use incentive spirometry patient sitting up in chair, ad [place] continue to work with PT/OT; did miss visits yesterday due to elevated blood pressures -- BPs improved and will likely be able to complete visit today or tomorrow BiPAP as needed (2) Acute on chronic renal failure Current Visit: Yes Status: Acute Continues to be anuric Volume overloaded 2/2 this problem BPs elevated overnight Hgb down from previous (likely dilutional) HD today; BPs already responsive -- Hgb check in AM Cont to follow with Nephrology Qualifiers: Acute renal failure type: unspecified Chronic kidney disease stage: unspecified stage Qualified Code(s): N17.9 - Acute kidney failure, unspecified ; N18.9 - Chronic kidney disease, unspecified; N18.9 - Chronic kidney disease, unspecified (3) Thrombocytopenia Current Visit: Yes Status: Acute Platelets at 29k today HD catheter still in place and viable; HD in progress Cont to monitor qAM Cont to hold any meds that may worsen coagulability (4) Staphylococcus aureus bacteremia with sepsis Current Visit: Yes Status: Acute MSSA negative blood cultures x2 on 04/22 and 04/27 continue antibiotic treatment until 05/21/2017 or until LYDIA performed; changed to Cefazolin infectious disease consult, recs appreciated (5) Septic shock Current Visit: Yes Status: Resolved secondary to MSSA bacteremia, resolved currently being treated with Cefazolin, STOP date 05/21/2017 consult with infectious disease agreed for 28 days of total treatment after negative blood culture 04/27/2017 may require a LYDIA at a future date (6) Diabetes mellitus Current Visit: Yes Status: Chronic Insulin presently held and FSBG within 100-200 range May add basal or SSI if needed over next few days, but no changes to be made at present Qualifiers: Diabetes mellitus type: type 2 Diabetes mellitus senior care insulin use: without senior care use Diabetes mellitus complication status: with hyperglycemia Qualified Code(s): E11.65 - Type 2 diabetes mellitus with hyperglycemia (7) Hematoma Current Visit: Yes Status: Acute no change of plan; holding anticoagulants (8) Cardiac arrest Current Visit: Yes Status: Resolved Plan unchanged s/p cardiac arrest PEA 1 RAMÍREZ placed 04/16/17 in left prox circumflex, discharged home on Aspirin and Brilinta cardiology has been consulted - recommend once the platelets stabilize and patients more stable may consider starting on antiplatelet Plavix (9) Anemia Current Visit: Yes Status: Acute Hgb down to 7.6 this AM, but likely due to volume overload secondary to anuric CKD HD dialysis this AM/Afternoon; expect that hgb rebounds to baseline once excess volume is removed Recheck in AM Qualifiers: Anemia type: unspecified type Qualified Code(s): D64.9 - Anemia, unspecified (10) DVT prophylaxis Current Visit: Yes Status: Acute SCDs Subjective Principal diagnosis: Sepsis/Septic Shock Interval history: States is feeling well this morning. No notable difficulty breathing. Did not tolerate BiPAP comfortably overnight, however. Also has had some difficulty with elevated blood pressures; patient is due for HD this AM/afternoon, so hopefully some loss of volume will help with this. Did increase Coreg to 12.5mg. No other events or complaints at this time. Objective PUL Vital signs: Last Vital Signs Temp 97.7 F 05/05/17 07:25 Pulse 96 05/05/17 08:00 Resp 18 05/05/17 08:00 BP 169/69 05/05/17 08:00 Pulse Ox 97 05/05/17 08:00 CONSTITUTIONAL: Alert and oriented X3, restful HEAD: Normocephalic; atraumatic. EYES: PERRL, no scleral icterus, no drainage, no conjunctival injection NOSE: nasal cannula in place Oropharynx: pink/moist, no tonsillar edema/erythema/exudates RESP: NRD without use of accessory musculature, CTA b/l with no wheezes/rales/ rhonchi CARD: Regular rhythm, without murmurs, rubs, or gallop ABD: grossly normal, soft, non-tender SKIN: normal appearance, no pallor/diaphoresis,mottling,jaundice,cyanosis EXT: DP/Rad pulses 2+ and symmetrical PSYCH: appropriate mood/affect Results - Laboratory Findings CBC and BMP: 05/05/17 04:00 05/05/17 04:00 ABG ABG pH 7.46 pH Units (7.32-7.45) H 05/01/17 04:55 ABG pCO2 37 mmHg (35-45) 05/01/17 04:55 ABG pO2 60 mmHg (85-104) L 05/01/17 04:55 ABG O2 Saturation 92 % (95-98) L 05/01/17 04:55 PT/INR, D-dimer PT 16.9 Seconds (9.4-12.1) H 05/04/17 13:30 D-Dimer 7347 ng/mLFEU (0-500) H 05/04/17 13:30 Abnormal lab findings: Abnormal lab results RBC 2.74 M/mcL (4.19-5.50) L 05/05/17 04:00 Hgb 7.6 g/dL (12.9-16.9) L 05/05/17 04:00 Hct 23.0 % (37.5-50.1) L 05/05/17 04:00 MCH 27.7 pg (28.0-33.3) L 05/05/17 04:00 Plt Count 29 K/mcL (140-400) L* 05/05/17 04:00 Band Neutrophils % 8.0 % (0-4) H 04/29/17 07:46 Metamyelocytes % 4.0 % (0) H 04/29/17 07:46 Myelocytes % 5.0 % (0) H 04/27/17 09:30 Promyelocytes % 2.0 % (0) H 04/27/17 09:30 Blast Cells % 1.0 % (0) H 04/27/17 09:30 Lymphocytes # 0.5 K/mcL (0.6-4.6) L 05/05/17 04:00 Nucleated RBCs/100 WBC 0.4 /100 WBC (0) H 05/05/17 04:00 Reactive Lymphocytes Present (Not Present) A 04/28/17 03:15 Toxic Granulation Present (Not Present) A 05/02/17 15:40 Toxic Vacuolation Present (Not Present) A 04/21/17 14:25 Platelet Estimate Marked Decrease (Normal) L 05/02/17 15:40 PT 16.9 Seconds (9.4-12.1) H 05/04/17 13:30 Fibrinogen 736 mg/dL (169-393) H* 05/03/17 16:33 D-Dimer 7347 ng/mLFEU (0-500) H 05/04/17 13:30 ABG pH 7.46 pH Units (7.32-7.45) H 05/01/17 04:55 ABG pO2 60 mmHg (85-104) L 05/01/17 04:55 ABG Total CO2 27 mEq/L (20-26) H 05/01/17 04:55 ABG O2 Saturation 92 % (95-98) L 05/01/17 04:55 VBG pH 7.44 pH Units (7.32-7.42) H 05/01/17 05:37 VBG pCO2 36 mmHg (41-51) L 05/01/17 05:37 VBG pO2 157 mmHg (25-50) H 05/01/17 05:37 Sodium 132 mEq/L (136-145) L 05/05/17 04:00 Chloride 95 mEq/L (98-107) L 05/05/17 04:00 Carbon Dioxide 19 mEq/L (23-29) L 05/05/17 04:00 BUN 78 mg/dL (8-23) H 05/05/17 04:00 Creatinine 6.39 mg/dL (0.70-1.30) H 05/05/17 04:00 Est GFR ( Amer) 11 (> 60) L 05/05/17 04:00 Est GFR (Non-Af Amer) 9 (> 60) L 05/05/17 04:00 Glucose 116 mg/dL (70-105) H 05/05/17 04:00 POC Glucose 125 (58-89) H 05/05/17 00:16 Calcium 7.5 mg/dL (8.6-10.3) L 05/05/17 04:00 Venous Ioniz Calcium 0.89 mmol/L (1.15-1.35) L 05/02/17 10:26 Total Bilirubin 1.2 mg/dL (0.3-1.0) H 05/03/17 16:33 Direct Bilirubin 0.5 mg/dL (0.0-0.2) H 05/03/17 16:33 Troponin I 4.23 ng/mL (< 0.04) H* 04/21/17 14:25 Albumin 2.7 g/dL (3.5-5.7) L 05/03/17 16:33 Globulin 4.1 g/dL (2.4-3.5) H 05/03/17 16:33 Albumin/Globulin Ratio 0.7 (1.1-2.2) L 05/03/17 16:33 HDL Cholesterol 27 mg/dL (40-59) L 04/20/17 03:48 Vancomycin Trough 39.7 mcg/mL (10-20) H* 04/21/17 12:50 Staphylococcus sp PCR DETECTED (Not Detect) A 04/20/17 03:48 Staph aureus (PCR) DETECTED (Not Detect) A 04/20/17 03:48 - Microbiology Findings Microbiology Findings: Microbiology, Last 48 Hours 04/27/17 07:17 Blood Culture - Final Peripheral Venipuncture No growth. - Clinical Findings Intake & Output: Intake & Output 05/04/17 05/05/17 05/05/17 23:59 07:59 15:59 Intake Total 602 / 602 Output Total 25 / 25 50 / 50 Balance 577 / 577 -50 / -50 - VTE Documentation of Mechanical Device: Intermittent pneumatic compression device
[2017-05-05] MEDS: WATER FOR INJ IVP SCH (16:41)
[2017-05-05] MEDS: CEFAZOLIN IVP SCH (16:41)
[2017-05-05] MEDS: Ondansetron 4 MG/2 ML VIAL IVP PRN (16:41)
[2017-05-06] MEDS: Insulin LISPRO 300 UNITS/3 ML VIAL SQ SCH ×6 (00:02→19:38)
[2017-05-06] MEDS: Albuterol 2.5 MG/3 ML NEBULIZER IH SCH ×3 (00:21→17:46)
[2017-05-06] MEDS: Acetylcysteine 10% 2 ML INHSOL IH SCH ×3 (00:22→17:46)
[2017-05-06 04:39] LABS: Eosinophils % 0.4 %; Hemoglobin 7.2 g/dL (12.9-16.9); Red Cell Distribution Width 13.9 % (11.5-14.5)
[2017-05-06 04:40] LABS: Basophils % 0.2 %; Hematocrit 21.7 % (37.5-50.1); Immature Granulocytes % 0.7 % (0-4); Immature Platelets 4.9 % (1.1-6.1); Lymphocytes # 0.6 K/mcL (0.6-4.6); Lymphocytes % 10.4 %; Mean Corpuscular HGB Conc 33.2 g/dL (31.6-35.5); Mean Corpuscular Hemoglobin 28.1 pg (28.0-33.3); Mean Corpuscular Volume 84.8 fL (83.0-100.0); Mean Platelet Volume 10.4 fL (9.4-12.4); Monocytes # 0.6 K/mcL (0.0-1.3); Monocytes % 9.9 %; Red Blood Count 2.56 M/mcL (4.19-5.50); Segmented Neutrophils % 78.4 %
[2017-05-06 04:49] LABS: Neutrophils # 4.5 K/mcL (1.6-8.9); Platelet Count 62 K/mcL (140-400)
[2017-05-06 04:56] LABS: Calcium 7.8 mg/dL (8.6-10.3); Potassium 3.6 mEq/L (3.5-5.1)
[2017-05-06] MEDS: Pantoprazole 40 MG VIAL IVP SCH ×2 (06:17→16:53)
[2017-05-06] MEDS: Isosorbide MONOnitrate (24 HR) 30 MG TAB.ER.24H PO SCH (08:20)
[2017-05-06] MEDS: Chlorhexidine Rinse 15 ML MOUTHWASH MM SCH ×2 (08:21→19:26)
[2017-05-06] MEDS: amLODIPine 5 MG TABLET PO SCH (08:21)
[2017-05-06] MEDS: Aspirin 81 MG TAB.CHEW PO SCH (08:25)
--- NOTE | 2017-05-06 08:44 | Pulmonology Progress Note ---
Date of Encounter: 05/06/17 Time of Encounter: 08:00 Assessment and Plan (1) Coronary artery disease Current Visit: Yes Status: Chronic Patient hemodynamically stable and improvement in platelets. Resume aspirin at this time and continue medical management. Due to prolonged ICU stay patient to remain in ICU today and hopefully can be transferred out to the floor in next 24 hours and continue medical management and physical therapy. Removal arterial line. Qualifiers: Coronary Disease-Associated Artery/Lesion type: [place] artery [place] vs. transplanted heart: [place] heart Associated angina: with other forms of angina Qualified Code(s): I25.118 - Atherosclerotic heart disease of [place] coronary artery with other forms of angina pectoris (2) Essential (primary) hypertension Current Visit: No Status: Chronic This better controlled and adjust medication accordingly. (3) Staphylococcus aureus bacteremia with sepsis Current Visit: Yes Status: Acute (4) Thrombocytopenia Current Visit: Yes Status: Acute There is improvement and this was possibly related to Naficillin since there is improvement when it was stopped. Subjective Principal diagnosis: Sepsis/Septic Shock Interval history: Patient is doing much better and denies any complaint at this time. Objective PUL Vital signs: Last Vital Signs Temp 98.5 F 05/06/17 08:02 Pulse 79 05/06/17 08:20 Resp 16 05/06/17 08:20 BP 143/75 05/06/17 08:20 Pulse Ox 97 05/06/17 08:20 General appearance: no acute distress Eyes: nonicteric Neck: supple Effort: normal Auscultation: bilateral: clear Percussion: bilateral: not dull Cardiovascular: regular rate and rhythm Gastrointestinal: normoactive bowel sounds, non-distended Extremities: no cyanosis, edema normal mental status mood appropriate Results - Laboratory Findings CBC and BMP: 05/06/17 04:19 05/06/17 04:19 ABG ABG pH 7.46 pH Units (7.32-7.45) H 05/01/17 04:55 ABG pCO2 37 mmHg (35-45) 05/01/17 04:55 ABG pO2 60 mmHg (85-104) L 05/01/17 04:55 ABG O2 Saturation 92 % (95-98) L 05/01/17 04:55 PT/INR, D-dimer PT 16.9 Seconds (9.4-12.1) H 05/04/17 13:30 D-Dimer 7347 ng/mLFEU (0-500) H 05/04/17 13:30 Abnormal lab findings: Abnormal lab results RBC 2.56 M/mcL (4.19-5.50) L 05/06/17 04:19 Hgb 7.2 g/dL (12.9-16.9) L 05/06/17 04:19 Hct 21.7 % (37.5-50.1) L 05/06/17 04:19 Plt Count 62 K/mcL (140-400) L D 05/06/17 04:19 Band Neutrophils % 8.0 % (0-4) H 04/29/17 07:46 Metamyelocytes % 4.0 % (0) H 04/29/17 07:46 Myelocytes % 5.0 % (0) H 04/27/17 09:30 Promyelocytes % 2.0 % (0) H 04/27/17 09:30 Blast Cells % 1.0 % (0) H 04/27/17 09:30 Nucleated RBCs/100 WBC 0.4 /100 WBC (0) H 05/05/17 04:00 Reactive Lymphocytes Present (Not Present) A 04/28/17 03:15 Toxic Granulation Present (Not Present) A 05/02/17 15:40 Toxic Vacuolation Present (Not Present) A 04/21/17 14:25 Platelet Estimate Marked Decrease (Normal) L 05/02/17 15:40 PT 16.9 Seconds (9.4-12.1) H 05/04/17 13:30 Fibrinogen 736 mg/dL (169-393) H* 05/03/17 16:33 D-Dimer 7347 ng/mLFEU (0-500) H 05/04/17 13:30 ABG pH 7.46 pH Units (7.32-7.45) H 05/01/17 04:55 ABG pO2 60 mmHg (85-104) L 05/01/17 04:55 ABG Total CO2 27 mEq/L (20-26) H 05/01/17 04:55 ABG O2 Saturation 92 % (95-98) L 05/01/17 04:55 VBG pH 7.44 pH Units (7.32-7.42) H 05/01/17 05:37 VBG pCO2 36 mmHg (41-51) L 05/01/17 05:37 VBG pO2 157 mmHg (25-50) H 05/01/17 05:37 Sodium 134 mEq/L (136-145) L 05/06/17 04:19 Chloride 94 mEq/L (98-107) L 05/06/17 04:19 BUN 52 mg/dL (8-23) H 05/06/17 04:19 Creatinine 5.04 mg/dL (0.70-1.30) H 05/06/17 04:19 Est GFR ( Amer) 14 (> 60) L 05/06/17 04:19 Est GFR (Non-Af Amer) 12 (> 60) L 05/06/17 04:19 POC Glucose 214 (58-89) H 05/05/17 23:49 Calcium 7.8 mg/dL (8.6-10.3) L 05/06/17 04:19 Venous Ioniz Calcium 0.89 mmol/L (1.15-1.35) L 05/02/17 10:26 Total Bilirubin 1.2 mg/dL (0.3-1.0) H 05/03/17 16:33 Direct Bilirubin 0.5 mg/dL (0.0-0.2) H 05/03/17 16:33 Troponin I 4.23 ng/mL (< 0.04) H* 04/21/17 14:25 Albumin 2.7 g/dL (3.5-5.7) L 05/03/17 16:33 Globulin 4.1 g/dL (2.4-3.5) H 05/03/17 16:33 Albumin/Globulin Ratio 0.7 (1.1-2.2) L 05/03/17 16:33 HDL Cholesterol 27 mg/dL (40-59) L 04/20/17 03:48 Vancomycin Trough 39.7 mcg/mL (10-20) H* 04/21/17 12:50 Staphylococcus sp PCR DETECTED (Not Detect) A 04/20/17 03:48 Staph aureus (PCR) DETECTED (Not Detect) A 04/20/17 03:48 - Clinical Findings Intake & Output: Intake & Output 05/05/17 05/06/17 05/06/17 23:59 07:59 15:59 Intake Total Output Total 50 / 50 Balance -50 / -50 - Weight 91.9 kg - VTE Documentation of Mechanical Device: Intermittent pneumatic compression device Consult Discharge Plan - Plan Referrals: Kannan Hurley DO [Primary Care Provider] - Juan Lake [Family Provider] -
--- NOTE | 2017-05-06 11:27 | Nephrology Progress Note ---
Date of Encounter: 05/06/17 Time of Encounter: 09:20 - Assessment and Plan (1) NANCY (acute kidney injury) Current Visit: Yes Status: Acute Plan for HD tomorrow. Doing well today (Sunday). Continue to follow a renal protective strategy and strict I/Os and daily weights. (2) Hyponatremia Current Visit: Yes Status: Acute Improved. (3) Abdominal compartment syndrome Current Visit: Yes Status: Resolved At the beginning of his presentation / admission, he had a very distended/tense abd. This now appears resolved. Qualifiers: Compartment syndrome type: non-traumatic Qualified Code(s): M79.A3 - Nontraumatic compartment syndrome of abdomen (4) Septic shock Current Visit: Yes Status: Resolved ICU following. Appears resolved (5) Methicillin susceptible Staphylococcus aureus pneumonia Current Visit: Yes Status: Acute As per ICU/Pulm Qualifiers: Laterality: bilateral Lung location: unspecified part of lung Qualified Code(s): J15.211 - Pneumonia due to Methicillin susceptible Staphylococcus aureus (6) Thrombocytopenia Current Visit: Yes Status: Acute Followed by Hematology who read peripheral smear and did not suspect DIC or see schistocytes, per report. Subjective Principal diagnosis: Sepsis/Septic Shock Interval history: Pt was s/e and his was at bedside. He did not affirm N/V/D or chest pain. He had no new questions for me. Objective - Vital Signs Vital signs: Vital Signs Temp Pulse Resp BP Pulse Ox 05/06/17 10:40 73 16 126/76 94 05/06/17 10:28 20 97 05/06/17 09:20 86 20 128/71 97 05/06/17 08:20 79 16 143/75 97 05/06/17 08:02 98.5 F 05/06/17 06:22 73 20 156/56 93 05/06/17 05:15 79 23 156/61 94 05/06/17 04:30 98.0 F 64 18 171/62 95 05/06/17 03:15 70 20 156/70 92 05/06/17 02:00 65 18 156/65 94 05/06/17 01:00 97 22 148/61 94 05/06/17 00:22 19 95 05/06/17 00:20 98.3 F 05/06/17 00:00 69 18 138/64 95 05/05/17 23:30 91 16 171/65 93 05/05/17 22:15 89 16 102/50 94 05/05/17 21:30 101 24 112/51 92 05/05/17 20:45 80 05/05/17 20:42 80 18 121/51 94 05/05/17 20:27 98.3 F 05/05/17 19:00 78 22 134/56 93 05/05/17 18:00 90 22 127/54 98 05/05/17 17:58 20 96 05/05/17 16:57 90 20 142/55 96 05/05/17 16:00 84 18 135/63 95 05/05/17 15:00 98.1 F 88 20 97/49 97 05/05/17 14:30 97.4 F L 18 111/45 05/05/17 14:20 108/57 05/05/17 14:05 106/59 05/05/17 14:00 75 18 100/57 98 05/05/17 13:50 106/46 05/05/17 13:35 94/47 05/05/17 13:20 108/51 05/05/17 13:05 106/55 05/05/17 13:00 82 20 106/52 97 05/05/17 12:50 103/54 05/05/17 12:35 106/50 05/05/17 12:20 118/55 05/05/17 12:09 97.4 F L 05/05/17 12:05 129/61 05/05/17 12:00 93 19 121/60 95 05/05/17 11:50 127/60 05/05/17 11:35 131/64 Intake and Output 05/05/17 05/06/17 05/06/17 23:59 07:59 15:59 Intake Total 10 / 10 Output Total 50 50 Balance -50 / -50 -12 / -12 Intake: IV Fluids 10 / 10 Ancef 500 MG In Water for inj. 10 10 (sterile) 10 ML @ 200 mls/hr IVP Q24H [facility] Rx#:[id number] Output: Catheter 50 / 50 Other: Stool Size Smear Moderate Stool Consistency loose Stool Color Brown Brown Weight 91.9 kg Blood Glucose* 190 214 110 Patient Weight 05/06/17 23:59 Weight 91.9 kg - General Appearance Exam: General appearance: Present: well-developed, appears started age, fatigue, frail EENT: Present: ATNC, PERRL, mucous membranes moist Neck: Present: supple Respiratory: Present: course breath sounds Cardiology: Present: edema (only trace hand and ankle edema b/l), regular rate, regular rhythm, normal S1, normal S2 Dialysis Vascular Access: Venous Catheter (right femorary temporary HD catheter had dressing that was C/D/I and was not tender to palpation) Integumentary: Present: warm and dry Neurologic: Present: no focal deficit, no asterixis, alert and oriented x3 Musculoskeletal: Present: no cyanosis, no clubbing Psychiatric: Present: mood/affect appropriate, cooperative - Lab 05/06/17 04:19 05/06/17 04:19 Most recent lab results ABG pH 7.46 pH Units (7.32-7.45) H 05/01/17 04:55 ABG pCO2 37 mmHg (35-45) 05/01/17 04:55 ABG pO2 60 mmHg (85-104) L 05/01/17 04:55 ABG HCO3 26 mEq/L (21-27) 05/01/17 04:55 ABG O2 Saturation 92 % (95-98) L 05/01/17 04:55 Calcium 7.8 mg/dL (8.6-10.3) L 05/06/17 04:19 Phosphorus 3.0 mg/dL (2.7-4.5) 04/27/17 03:49 Magnesium 2.1 mg/dL (1.6-2.6) 04/28/17 03:15 - VTE Documentation of Mechanical Device: Intermittent pneumatic compression device Consult Discharge Plan - Plan Referrals: Kannan Hurley DO [Primary Care Provider] - Juan Lake [Family Provider] -
[2017-05-06] MEDS: Ondansetron 4 MG/2 ML VIAL IVP PRN (11:53)
[2017-05-06] MEDS: WATER FOR INJ IVP SCH (16:38)
[2017-05-06] MEDS: CEFAZOLIN IVP SCH (16:38)
[2017-05-07] MEDS: Acetylcysteine 10% 2 ML INHSOL IH SCH ×4 (00:15→22:05)
[2017-05-07] MEDS: Albuterol 2.5 MG/3 ML NEBULIZER IH SCH ×4 (00:15→22:04)
[2017-05-07 04:25] LABS: Hematocrit 20.5 % (37.5-50.1); Hemoglobin 6.7 g/dL (12.9-16.9); Mean Corpuscular HGB Conc 32.7 g/dL (31.6-35.5); Mean Corpuscular Hemoglobin 27.5 pg (28.0-33.3); Mean Platelet Volume 9.7 fL (9.4-12.4); Red Blood Count 2.44 M/mcL (4.19-5.50); Red Cell Distribution Width 13.5 % (11.5-14.5)
[2017-05-07 04:27] LABS: Platelet Count 85 K/mcL (140-400)
[2017-05-07 04:46] LABS: Calcium 7.9 mg/dL (8.6-10.3); Potassium 4.1 mEq/L (3.5-5.1)
[2017-05-07] MEDS: Insulin LISPRO 300 UNITS/3 ML VIAL SQ SCH ×4 (05:18→17:02)
[2017-05-07] MEDS: Pantoprazole 40 MG VIAL IVP SCH (06:04)
[2017-05-07] MEDS ORDERED: 0.9 % Sodium Chloride 500 ML ONE (06:18)
--- NOTE | 2017-05-07 07:06 | Pulmonology Progress Note ---
Date of Encounter: 05/07/17 Time of Encounter: 07:06 Assessment and Plan (1) NSTEMI (non-ST elevated myocardial infarction) Current Visit: No Status: Acute Patient has recent PCI and is at high risk for in-stent occlusion he was on dual antiplatelet therapy which was on hold because of thrombocytopenia and anemia. Cardiology also following this case. Aspirin has been restarted and can likely restart Brilinta today. Pending further workup as outlined below (2) Acute respiratory failure with hypoxia Current Visit: Yes Status: Acute (3) Staphylococcus aureus bacteremia with sepsis Current Visit: Yes Status: Acute This is treated with cefazolin and is improving. He will need prolonged course of IV antimicrobials for this (4) Acute on chronic renal failure Current Visit: Yes Status: Acute This is complicated by ARDS which is resolved excellent oxygenation today and will wean FiO2 to keep saturation around 92-94% Qualifiers: Acute renal failure type: unspecified Chronic kidney disease stage: unspecified stage Qualified Code(s): N17.9 - Acute kidney failure, unspecified ; N18.9 - Chronic kidney disease, unspecified; N18.9 - Chronic kidney disease, unspecified (5) Anemia Current Visit: Yes Status: Acute Acute on chronic anemia and think this is more related to frequent blood draws; kidney injury and infection is no overt evidence of bleeding but patient has dropped below 7 today so we will transfuse 2 units PRBCs Qualifiers: Anemia type: unspecified type Qualified Code(s): D64.9 - Anemia, unspecified (6) Thrombocytopenia Current Visit: Yes Status: Acute This is multifactorial but likely complicated in the short-term by nafcillin use which as been discontinued platelet count now continues to increase is 80, 000 today. We will continue to monitor this but I think it is safe to restart dual antiplatelet therapy. (7) Leg pain, right Current Visit: Yes Status: Acute Patient is having excruciating popliteal pain is at risk for deep venous thrombosis because holding chemical DVT prophylaxis because of thrombocytopenia and concern for bleeding. I have requested a lower extremity duplex to be done on an emergent basis if negative would restart dual antiplatelet therapy otherwise would consider infusion of heparin or possibility DVT filter placement but would likely need to discuss this further with hematology/oncology Subjective Principal diagnosis: Sepsis/Septic Shock Interval history: Mr Jarvis continues to improve. No acute events overnight. His only complaint today is some severe leg pain behind his knee which she says has developed overnight this is not associated with erythema or lower extremity edema however. Platelet count continues to trend up without evidence of bleeding. He denies chest pain has been otherwise stable on telemetry Objective PUL Vital signs: Last Vital Signs Temp 98.2 F 05/07/17 05:00 Pulse 74 05/07/17 06:00 Resp 24 05/07/17 06:00 BP 131/57 05/07/17 06:00 Pulse Ox 94 05/07/17 06:00 General appearance: no acute distress Eyes: nonicteric Effort: normal Cardiovascular: regular rate and rhythm Gastrointestinal: normoactive bowel sounds Extremities: other (Range of motion in the right lower extremity is decreased because of pain there is no associated erythema or lower extremity edema in the right leg left leg is otherwise normal pulses palpable bilaterally) normal mental status, non-focal exam mood appropriate Results - Laboratory Findings CBC and BMP: 05/07/17 04:07 05/07/17 04:07 ABG ABG pH 7.46 pH Units (7.32-7.45) H 05/01/17 04:55 ABG pCO2 37 mmHg (35-45) 05/01/17 04:55 ABG pO2 60 mmHg (85-104) L 05/01/17 04:55 ABG O2 Saturation 92 % (95-98) L 05/01/17 04:55 PT/INR, D-dimer PT 16.9 Seconds (9.4-12.1) H 05/04/17 13:30 D-Dimer 7347 ng/mLFEU (0-500) H 05/04/17 13:30 Abnormal lab findings: Abnormal lab results RBC 2.44 M/mcL (4.19-5.50) L 05/07/17 04:07 Hgb 6.7 g/dL (12.9-16.9) L 05/07/17 04:07 Hct 20.5 % (37.5-50.1) L 05/07/17 04:07 MCH 27.5 pg (28.0-33.3) L 05/07/17 04:07 Plt Count 85 K/mcL (140-400) L 05/07/17 04:07 Band Neutrophils % 8.0 % (0-4) H 04/29/17 07:46 Metamyelocytes % 4.0 % (0) H 04/29/17 07:46 Myelocytes % 5.0 % (0) H 04/27/17 09:30 Promyelocytes % 2.0 % (0) H 04/27/17 09:30 Blast Cells % 1.0 % (0) H 04/27/17 09:30 Nucleated RBCs/100 WBC 0.4 /100 WBC (0) H 05/05/17 04:00 Reactive Lymphocytes Present (Not Present) A 04/28/17 03:15 Toxic Granulation Present (Not Present) A 05/02/17 15:40 Toxic Vacuolation Present (Not Present) A 04/21/17 14:25 Platelet Estimate Marked Decrease (Normal) L 05/02/17 15:40 PT 16.9 Seconds (9.4-12.1) H 05/04/17 13:30 Fibrinogen 736 mg/dL (169-393) H* 05/03/17 16:33 D-Dimer 7347 ng/mLFEU (0-500) H 05/04/17 13:30 ABG pH 7.46 pH Units (7.32-7.45) H 05/01/17 04:55 ABG pO2 60 mmHg (85-104) L 05/01/17 04:55 ABG Total CO2 27 mEq/L (20-26) H 05/01/17 04:55 ABG O2 Saturation 92 % (95-98) L 05/01/17 04:55 VBG pH 7.44 pH Units (7.32-7.42) H 05/01/17 05:37 VBG pCO2 36 mmHg (41-51) L 05/01/17 05:37 VBG pO2 157 mmHg (25-50) H 05/01/17 05:37 Sodium 134 mEq/L (136-145) L 05/07/17 04:07 Chloride 92 mEq/L (98-107) L 05/07/17 04:07 BUN 78 mg/dL (8-23) H 05/07/17 04:07 Creatinine 7.12 mg/dL (0.70-1.30) H 05/07/17 04:07 Est GFR ( Amer) 10 (> 60) L 05/07/17 04:07 Est GFR (Non-Af Amer) 8 (> 60) L 05/07/17 04:07 Glucose 109 mg/dL (70-105) H 05/07/17 04:07 Calculated Osmolality 302 (280-300) H 05/07/17 04:07 Calcium 7.9 mg/dL (8.6-10.3) L 05/07/17 04:07 Venous Ioniz Calcium 0.89 mmol/L (1.15-1.35) L 05/02/17 10:26 Total Bilirubin 1.2 mg/dL (0.3-1.0) H 05/03/17 16:33 Direct Bilirubin 0.5 mg/dL (0.0-0.2) H 05/03/17 16:33 Troponin I 4.23 ng/mL (< 0.04) H* 04/21/17 14:25 Albumin 2.7 g/dL (3.5-5.7) L 05/03/17 16:33 Globulin 4.1 g/dL (2.4-3.5) H 05/03/17 16:33 Albumin/Globulin Ratio 0.7 (1.1-2.2) L 05/03/17 16:33 HDL Cholesterol 27 mg/dL (40-59) L 04/20/17 03:48 Vancomycin Trough 39.7 mcg/mL (10-20) H* 04/21/17 12:50 Staphylococcus sp PCR DETECTED (Not Detect) A 04/20/17 03:48 Staph aureus (PCR) DETECTED (Not Detect) A 04/20/17 03:48 - Clinical Findings Intake & Output: Intake & Output 05/06/17 05/06/17 05/07/17 15:59 23:59 07:59 Output Total 75 / 75 120 / 120 Balance -75 / -75 -120 / -120 Weight 92.3 kg - VTE Documentation of Mechanical Device: Intermittent pneumatic compression device Consult Discharge Plan - Plan Referrals: Kannan Hurley DO [Primary Care Provider] - Juan Lake [Family Provider] -
[2017-05-07] MEDS ORDERED: 0.9 % Sodium Chloride 250 ML IVC PRN (07:41)
--- NOTE | 2017-05-07 08:34 | Infectious Disease Progress No ---
Date of Encounter: 05/07/17 Time of Encounter: 08:33 - Assessment and Plan (1) Staphylococcus aureus bacteremia with sepsis Current Visit: Yes Status: Acute MSSA bacteremia may be secondary to left wrist infection versus MSSA pneumonia. All cultures grew same bacteria with similar sensitivities. - Patient currently on day 12 Nafcillin 2 g IV every 4 hours - Blood cultures no growth since 04/22/2017 - Vitals are stable Microbiology: Sputum culture 04/27 (+) Staphylococcus aureus Blood culture peripheral 04/27 (-) no growth Sputum culture 04/24 (+) light colonies staph aureus Blood culture peripheral 04/22 (-) no growth Blood culture peripheral 04/20 (+) MSSA Wound culture Lt wrist 04/20 (+) MSSA Anaerobic culture Lt wrist 04/20 (-) no anaerobes were recovered - Echocardiogram demonstrated LVEF 45-50%, mild global left ventricular systolic dysfunction, normal left ventricular atrial size, normal right atrial size, poorly visualized. No comment on valvular structure or negative for endocarditis. 05/07: - Right suprapatellar bursitis, monitor for any increase or worsening symptoms. No active signs of infection. - Patient will need LYDIA as CTA has concerning findings for possible septic emboli. Antibiotics: Nafcillin 2gm IV Q4hr -treatment duration 4 weeks from negative blood culture 04/22/17 (Anticipated end date 05/21/17). (2) Methicillin susceptible Staphylococcus aureus pneumonia Current Visit: Yes Status: Acute MSSA positive sputum cultures on 04/24/2017, 05/07/2017 Risk Factors: MSSA-positive bacteremia and left wrist wound; possibly metastatic seeding from bacteremia. Patient also hospitalized and underwent cardiac catheterization with stent placement 3 days prior to presentation. - Chest x-ray demonstrates diffuse patchy infiltrates concerning for pneumonia - Chest CTA demonstrated multifocal nodular consolidations noted throughout both lung [place] which were concerning for pneumonia with small bilateral pleural effusions. - Antibiotics: Nafcillin 2 g IV every 4 hours (day# 12) 05/04: no changes over night. Patient will still need LYDIA and continue on current antibiotic therapy. 05/07: Clinically improving. Continue with current antibiotic coverage. Qualifiers: Laterality: bilateral Lung location: unspecified part of lung Qualified Code(s): J15.211 - Pneumonia due to Methicillin susceptible Staphylococcus aureus (3) Wound infection Current Visit: Yes Status: Acute Left wrist wound and skin infection which grew MSSA susceptible to current therapy. - Possible cause of bacteremia - Continues to demonstrate healing. (4) Thrombocytopenia Current Visit: Yes Status: Acute Improving. - Management per hematology and primary team. - Subjective Interval history: Mr. Jarvis has been seen and evaluated. No acute changes over night. Denies any fevers, chills, diaphoresis, productive cough, chest pain or worsening of SOB. He has had some minor pain with right knee flexion and extension. Pain superior to the patella not in the knee joints, denies erythema or edema or injury. Denies any other acute symptoms. Infect Dis PN-Objective Data - Labs CBC & Chem 7: 05/07/17 04:07 05/07/17 04:07 Labs: Laboratory Results - last 24 hr 05/06/17 05/06/17 05/06/17 03:41 07:10 11:47 WBC RBC Hgb Hct MCV MCH MCHC RDW Plt Count MPV Sodium Potassium Chloride Carbon Dioxide BUN Creatinine Est GFR ( Amer) Est GFR (Non-Af Amer) BUN/Creatinine Ratio Glucose POC Glucose 92 H 110 H 197 H Calculated Osmolality Calcium Blood Type Antibody Screen Crossmatch 05/06/17 05/06/17 05/06/17 15:14 19:33 23:17 WBC RBC Hgb Hct MCV MCH MCHC RDW Plt Count MPV Sodium Potassium Chloride Carbon Dioxide BUN Creatinine Est GFR ( Amer) Est GFR (Non-Af Amer) BUN/Creatinine Ratio Glucose POC Glucose 122 H 263 H 79 Calculated Osmolality Calcium Blood Type Antibody Screen Crossmatch 05/07/17 05/07/17 05/07/17 04:07 04:07 05:09 WBC 5.2 RBC 2.44 L Hgb 6.7 L Hct 20.5 L MCV 84.0 MCH 27.5 L MCHC 32.7 RDW 13.5 Plt Count 85 L MPV 9.7 Sodium 134 L Potassium 4.1 Chloride 92 L Carbon Dioxide 24 BUN 78 H Creatinine 7.12 H Est GFR ( Amer) 10 L Est GFR (Non-Af Amer) 8 L BUN/Creatinine Ratio 11 Glucose 109 H POC Glucose Calculated Osmolality 302 H Calcium 7.9 L Blood Type O POSITIVE Antibody Screen NEGATIVE Crossmatch See Detail Cultures: Cultures 04/27/17 07:17 Blood Culture - Final Peripheral Venipuncture No growth. 04/27/17 07:17 Blood Culture - Final Peripheral Venipuncture No growth. 04/27/17 13:52 Sputum Culture - Final Sputum Staphylococcus aureus 04/22/17 12:35 Blood Culture - Final Peripheral Venipuncture No growth. 04/22/17 12:35 Blood Culture - Final Peripheral Venipuncture No growth. 04/24/17 11:15 Sputum Culture - Final Sputum Staphylococcus aureus 04/20/17 10:15 Anaerobic Culture - Final Left Wrist - Abscess No anaerobes were recovered. 04/20/17 03:48 Blood Culture - Final Peripheral Venipuncture Staphylococcus aureus 04/20/17 03:48 Blood Culture - Final Peripheral Venipuncture Staphylococcus aureus 04/20/17 10:15 Wound Culture - Final Left Wrist - Abscess Staphylococcus aureus Serology 05/03/17 04/27/17 04/20/17 Range/Units 06:54 16:25 10:55 Stl C. diff Tox B Gene Negative (Negative) A. baumannii (PCR) (Not Detect) Chlamy pneumoniae PCR Not Detected (Not Detect) Adenovirus (PCR) Not Detected (Not Detect) B. pertussis DNA (PCR) Not Detected (Not Detect) B.parapertussis DNA PCR Not Detected (Not Detect) Aixa albicans (PCR) (Not Detect) C. glabrata (PCR) (Not Detect) C. krusei (PCR) (Not Detect) C. parapsilosis (PCR) (Not Detect) C. tropicalis (PCR) (Not Detect) Coronavirus OC43 (PCR) Not Detected (Not Detect) Coronavirus HKU1 (PCR) Not Detected (Not Detect) Coronavirus 229E (PCR) Not Detected (Not Detect) Coronavirus NL63 (PCR) Not Detected (Not Detect) Enterobacteriac sp PCR (Not Detect) E. cloacae complex PCR (Not Detect) Enterococcus sp PCR (Not Detect) E. coli (PCR) (Not Detect) H. influenzae (PCR) (Not Detect) Hep Bs Antigen Nonreactive (Nonreactive) Hep Bs Antibody 5.77 mIU/mL Human Metapneumovir PCR Not Detected (Not Detect) Influenza A (H1) PCR Not Detected (Not Detect) Influ A (H1N1/09) PCR Not Detected (Not Detect) Influenza A (H3) PCR Not Detected (Not Detect) Influenza A Untype (PCR) Not Detected (Not Detect) Influenza Type B (PCR) Not Detected (Not Detect) Klebsiella oxytoca PCR (Not Detect) Klebsiella pneumoniae (Not Detect) List. monocytogenes PCR (Not Detect) M.pneumoniae DNA (PCR) Not Detected (Not Detect) N. meningitidis (PCR) (Not Detect) Parainfluenza 1 (PCR) Not Detected (Not Detect) Parainfluenza 2 (PCR) Not Detected (Not Detect) Parainfluenza 3 (PCR) Not Detected (Not Detect) Parainfluenza 4 (PCR) Not Detected (Not Detect) Proteus species (PCR) (Not Detect) RSV (PCR) Not Detected (Not Detect) Entero/Rhino (PCR) Not Detected (Not Detect) Serratia marcescens PCR (Not Detect) Staphylococcus sp PCR (Not Detect) Staph aureus (PCR) (Not Detect) mecA-Methicil Res Gene (Not Detect) Streptococcus sp PCR (Not Detect) Group A Strep DNA (Not Detect) Group B Strep (PCR) (Not Detect) Strep pneumoniae (PCR) (Not Detect) P. aeruginosa (PCR) (Not Detect) Mariam/B-Vanco Res Genes (Not Detect) KPC (blaKPC) Detect PCR (Not Detect) 04/20/17 Range/Units 03:48 Stl C. diff Tox B Gene (Negative) A. baumannii (PCR) Not Detected (Not Detect) Chlamy pneumoniae PCR (Not Detect) Adenovirus (PCR) (Not Detect) B. pertussis DNA (PCR) (Not Detect) B.parapertussis DNA PCR (Not Detect) Aixa albicans (PCR) Not Detected (Not Detect) C. glabrata (PCR) Not Detected (Not Detect) C. krusei (PCR) Not Detected (Not Detect) C. parapsilosis (PCR) Not Detected (Not Detect) C. tropicalis (PCR) Not Detected (Not Detect) Coronavirus OC43 (PCR) (Not Detect) Coronavirus HKU1 (PCR) (Not Detect) Coronavirus 229E (PCR) (Not Detect) Coronavirus NL63 (PCR) (Not Detect) Enterobacteriac sp PCR Not Detected (Not Detect) E. cloacae complex PCR Not Detected (Not Detect) Enterococcus sp PCR Not Detected (Not Detect) E. coli (PCR) Not Detected (Not Detect) H. influenzae (PCR) Not Detected (Not Detect) Hep Bs Antigen (Nonreactive) Hep Bs Antibody mIU/mL Human Metapneumovir PCR (Not Detect) Influenza A (H1) PCR (Not Detect) Influ A (H1N1/09) PCR (Not Detect) Influenza A (H3) PCR (Not Detect) Influenza A Untype (PCR) (Not Detect) Influenza Type B (PCR) (Not Detect) Klebsiella oxytoca PCR Not Detected (Not Detect) Klebsiella pneumoniae Not Detected (Not Detect) List. monocytogenes PCR Not Detected (Not Detect) M.pneumoniae DNA (PCR) (Not Detect) N. meningitidis (PCR) Not Detected (Not Detect) Parainfluenza 1 (PCR) (Not Detect) Parainfluenza 2 (PCR) (Not Detect) Parainfluenza 3 (PCR) (Not Detect) Parainfluenza 4 (PCR) (Not Detect) Proteus species (PCR) Not Detected (Not Detect) RSV (PCR) (Not Detect) Entero/Rhino (PCR) (Not Detect) Serratia marcescens PCR Not Detected (Not Detect) Staphylococcus sp PCR DETECTED A (Not Detect) Staph aureus (PCR) DETECTED A (Not Detect) mecA-Methicil Res Gene Not Detected (Not Detect) Streptococcus sp PCR Not Detected (Not Detect) Group A Strep DNA Not Detected (Not Detect) Group B Strep (PCR) Not Detected (Not Detect) Strep pneumoniae (PCR) Not Detected (Not Detect) P. aeruginosa (PCR) Not Detected (Not Detect) Mariam/B-Vanco Res Genes Not Detected (Not Detect) KPC (blaKPC) Detect PCR Not Detected (Not Detect) Exam - Constitutional Vitals: Temp Pulse Resp BP Pulse Ox 97.9 F 73 22 142/65 96 05/07/17 08:12 05/07/17 08:12 05/07/17 08:12 05/07/17 08:12 05/07/17 08:12 - Head Head exam: Present: atraumatic, normocephalic - Neck Neck exam: Present: normal inspection - Respiratory Respiratory exam: Present: CTAB - Cardiovascular Cardiovascular exam: Present: RRR, +S1, +S2 - GI/Abdominal GI/Abdominal exam: Present: normal bowel sounds, soft - Extremities Exam Additional comments: Petechiae on bilateral lower 70 slightly improved from Sunday. - HD catheter in place without any surrounding erythema or edema. - Right suprapatellar bursitis - VTE Documentation of Mechanical Device: Intermittent pneumatic compression device Consult Discharge Plan - Plan Referrals: Kannan Hurley DO [Primary Care Provider] - Juan Lake [Family Provider] - - Attending Attestation I examined this patient and my medical decision-making was reviewed with the Resident Physician. I agree with the documented findings, disposition and treatment plan as described except to the extent set forth below.
[2017-05-07] MEDS: Aspirin 81 MG TAB.CHEW PO SCH (09:19)
[2017-05-07] MEDS: amLODIPine 5 MG TABLET PO SCH (09:19)
[2017-05-07] MEDS: Isosorbide MONOnitrate (24 HR) 30 MG TAB.ER.24H PO SCH (09:19)
[2017-05-07] MEDS: Chlorhexidine Rinse 15 ML MOUTHWASH MM SCH ×2 (09:20→21:46)
--- NOTE | 2017-05-07 14:21 | Nephrology Progress Note ---
Date of Encounter: 05/07/17 Time of Encounter: 11:25 - Assessment and Plan (1) NANCY (acute kidney injury) Current Visit: Yes Status: Acute Dialysis dependent HD every M/W/F. When hemodynamics, Leukocytosis and platelets improve, if he remains oliguric, then would recommend placement of a Permacath. Next HD after today, tentatively planned for Sunday. Continue to follow a renal protective strategy and strict I/Os and daily weights. (2) Hyponatremia Current Visit: Yes Status: Acute Improved. (3) Abdominal compartment syndrome Current Visit: Yes Status: Resolved At the beginning of his presentation / admission, he had a very distended/tense abd. This now appears resolved. Qualifiers: Compartment syndrome type: non-traumatic Qualified Code(s): M79.A3 - Nontraumatic compartment syndrome of abdomen (4) Septic shock Current Visit: Yes Status: Resolved ICU following. Appears resolved (5) Methicillin susceptible Staphylococcus aureus pneumonia Current Visit: Yes Status: Acute As per ICU/Pulm Qualifiers: Laterality: bilateral Lung location: unspecified part of lung Qualified Code(s): J15.211 - Pneumonia due to Methicillin susceptible Staphylococcus aureus (6) Thrombocytopenia Current Visit: Yes Status: Acute Followed by Hematology who read peripheral smear and did not suspect DIC or see schistocytes, per report. Subjective Principal diagnosis: Sepsis/Septic Shock Interval history: Pt was s/e and his was at bedside. He did not affirm N/V/D or chest pain. He had no new major complaints. Objective - Vital Signs Vital signs: Vital Signs Temp Pulse Resp BP Pulse Ox 05/07/17 12:27 98.6 F 62 21 129/75 94 05/07/17 12:00 98.8 F 61 21 132/80 92 05/07/17 10:38 98.2 F 70 22 135/80 94 05/07/17 10:23 98.5 F 75 18 135/80 92 05/07/17 10:04 98.0 F 75 18 135/80 98 05/07/17 08:12 97.9 F 73 22 142/65 96 05/07/17 08:00 98.0 F 73 25 144/77 96 05/07/17 07:57 98.0 F 71 20 132/80 95 05/07/17 07:00 79 14 132/80 95 05/07/17 06:00 74 24 131/57 94 05/07/17 05:00 98.2 F 68 20 127/72 92 05/07/17 04:30 63 18 132/75 92 05/07/17 03:00 63 20 125/73 90 05/07/17 02:30 67 18 132/69 91 05/07/17 01:00 69 16 132/58 92 05/07/17 00:30 76 18 131/53 92 05/07/17 00:15 20 90 05/07/17 00:00 98.7 F 05/06/17 23:00 69 23 144/81 89 05/06/17 22:30 65 16 128/69 91 05/06/17 21:00 70 18 139/74 90 05/06/17 20:00 66 20 129/75 89 05/06/17 19:30 98.2 F 88 18 115/55 89 05/06/17 18:18 81 20 132/68 90 05/06/17 17:46 18 131/67 89 05/06/17 17:16 79 16 131/67 91 05/06/17 16:30 75 20 123/62 96 05/06/17 15:44 66 20 121/75 97 05/06/17 15:35 97.7 F 05/06/17 14:39 82 16 125/70 93 Intake and Output 05/06/17 05/07/17 05/07/17 23:59 07:59 15:59 Intake Total 0 / 0 585 / 585 Output Total 75 / 75 120 / 120 60 / 60 Balance -75 / -75 -120 / -120 525 / 525 Intake: IV Fluids 10 10 Ancef 500 MG In Water for inj. (sterile) 10 ML @ 200 mls/hr IVP Q24H [facility] Rx#:[id number] Blood Product 0 / 0 575 / 575 Rbcs Leuko Poor As-1 Unit 0 / 0 275 / 275 [id number] Rbcs Leuko Poor As-1 Unit 300 / 300 [id number] Output: Urine 75 / 75 120 / 120 Catheter 0 / 0 60 / 60 Other: Stool Size Moderate Small Stool Consistency loose loose soft soft Stool Color Brown Brown Weight 92.3 kg Blood Glucose* 79 145 Patient Weight 05/07/17 23:59 Weight 92.3 kg - General Appearance Exam: General appearance: Present: well-developed, appears started age, fatigue, frail but generally appears better EENT: Present: ATNC, PERRL, mucous membranes moist Neck: Present: supple Respiratory: Present: clear to auscultation anteriorlly Cardiology: Present: regular rate, regular rhythm, normal S1, normal S2 without peripheral edema Dialysis Vascular Access: Venous Catheter (right femorary temporary HD catheter had dressing that was C/D/I and was not tender to palpation) Integumentary: Present: warm and dry Neurologic: Present: no focal deficit, no asterixis, alert and oriented x3 Musculoskeletal: Present: no cyanosis, no clubbing Psychiatric: Present: mood/affect appropriate, cooperative - Lab 05/09/17 03:40 05/09/17 03:40 Most recent lab results ABG pH 7.46 pH Units (7.32-7.45) H 05/01/17 04:55 ABG pCO2 37 mmHg (35-45) 05/01/17 04:55 ABG pO2 60 mmHg (85-104) L 05/01/17 04:55 ABG HCO3 26 mEq/L (21-27) 05/01/17 04:55 ABG O2 Saturation 92 % (95-98) L 05/01/17 04:55 Calcium 7.9 mg/dL (8.6-10.3) L 05/07/17 04:07 Phosphorus 3.0 mg/dL (2.7-4.5) 04/27/17 03:49 Magnesium 2.1 mg/dL (1.6-2.6) 04/28/17 03:15 - VTE Documentation of Mechanical Device: Intermittent pneumatic compression device Consult Discharge Plan - Plan Referrals: Kannan Hurley DO [Primary Care Provider] - Juan Lake [Family Provider] -
--- NOTE | 2017-05-07 16:54 | Event Note ---
Date of Encounter: 05/07/17 Time of Encounter: 01:[address] Bermudez the admitting hospitalist about transfer to the med/ surg floor. Dr. Bermudez agreed to accept. Patient should be admitted to 2A as patient is on dialysis.
[2017-05-07 17:17] LABS: Hematocrit 24.7 % (37.5-50.1); Mean Corpuscular HGB Conc 33.6 g/dL (31.6-35.5); Mean Corpuscular Hemoglobin 27.9 pg (28.0-33.3); Mean Corpuscular Volume 83.2 fL (83.0-100.0); Mean Platelet Volume 10.1 fL (9.4-12.4); Platelet Count 112 K/mcL (140-400); Red Blood Count 2.97 M/mcL (4.19-5.50); Red Cell Distribution Width 13.6 % (11.5-14.5)
[2017-05-07 17:20] LABS: Hemoglobin 8.3 g/dL (12.9-16.9)
[2017-05-07 17:50] LABS: Calcium 8.1 mg/dL (8.6-10.3); Potassium 4.1 mEq/L (3.5-5.1)
[2017-05-07] MEDS: *HR* Ticagrelor 90 MG TABLET PO SCH (21:44)
[2017-05-07] MEDS ORDERED: ceFAZolin 500 MG in Water for inj. (sterile) 20 ML 10 ML IVP SCH (22:00)
[2017-05-08 04:45] LABS: Hematocrit 27.6 % (37.5-50.1); Hemoglobin 9.5 g/dL (12.9-16.9); Mean Corpuscular HGB Conc 34.4 g/dL (31.6-35.5); Mean Corpuscular Hemoglobin 28.4 pg (28.0-33.3); Mean Corpuscular Volume 82.4 fL (83.0-100.0); Mean Platelet Volume 9.5 fL (9.4-12.4); Platelet Count 146 K/mcL (140-400); Red Blood Count 3.35 M/mcL (4.19-5.50); Red Cell Distribution Width 13.7 % (11.5-14.5)
[2017-05-08 05:12] LABS: Calcium 8.6 mg/dL (8.6-10.3); Potassium 4.3 mEq/L (3.5-5.1)
[2017-05-08] MEDS ORDERED: Pantoprazole 40 MG VIAL IVP SCH (07:30)
[2017-05-08] MEDS: Albuterol 2.5 MG/3 ML NEBULIZER IH SCH ×2 (07:45→17:20)
[2017-05-08] MEDS: Acetylcysteine 10% 2 ML INHSOL IH SCH (07:45)
[2017-05-08] MEDS: Aspirin 81 MG TAB.CHEW PO SCH (08:52)
--- NOTE | 2017-05-08 08:52 | Infectious Disease Progress No ---
Date of Encounter: 05/08/17 Time of Encounter: 08:51 - Assessment and Plan (1) Staphylococcus aureus bacteremia with sepsis Current Visit: Yes Status: Acute MSSA bacteremia may be secondary to left wrist infection versus MSSA pneumonia. All cultures grew same bacteria with similar sensitivities. - Patient currently on day 13 of cefazolin 1000 mg daily - Blood cultures no growth since 04/22/2017 - Vitals are stable Microbiology: Sputum culture 04/27 (+) Staphylococcus aureus Blood culture peripheral 04/27 (-) no growth Sputum culture 04/24 (+) light colonies staph aureus Blood culture peripheral 04/22 (-) no growth Blood culture peripheral 04/20 (+) MSSA Wound culture Lt wrist 04/20 (+) MSSA Anaerobic culture Lt wrist 04/20 (-) no anaerobes were recovered - Echocardiogram demonstrated LVEF 45-50%, mild global left ventricular systolic dysfunction, normal left ventricular atrial size, normal right atrial size, poorly visualized. No comment on valvular structure or negative for endocarditis. 05/08: - Right suprapatellar bursitis, improved overnight, No active signs of infection. - Patient will need LYDIA as CTA has concerning findings for possible septic emboli. Antibiotics: Cefazolin 1000mg Q24hrs -treatment duration 4 weeks from negative blood culture 04/22/17 (Anticipated end date 05/21/17). (2) Methicillin susceptible Staphylococcus aureus pneumonia Current Visit: Yes Status: Acute MSSA positive sputum cultures on 04/24/2017, 05/07/2017 Risk Factors: MSSA-positive bacteremia and left wrist wound; possibly metastatic seeding from bacteremia. Patient also hospitalized and underwent cardiac catheterization with stent placement 3 days prior to presentation. - Chest x-ray demonstrates diffuse patchy infiltrates concerning for pneumonia - Chest CTA demonstrated multifocal nodular consolidations noted throughout both lung [place] which were concerning for pneumonia with small bilateral pleural effusions. 05/08: Clinically stable, temperature recorded at 100 degrees Fahrenheit around 5 AM, patient denies any subjective fever, diaphoresis or chills. Overall feels stable. - Continue ceftezole 1000 mg IV every 24 hours for total treatment duration 4 weeks. Qualifiers: Laterality: bilateral Lung location: unspecified part of lung Qualified Code(s): J15.211 - Pneumonia due to Methicillin susceptible Staphylococcus aureus (3) Wound infection Current Visit: Yes Status: Acute Left wrist wound and skin infection which grew MSSA susceptible to current therapy. - Possible cause of bacteremia. Healing appropriately. (4) Thrombocytopenia Current Visit: Yes Status: Acute Improving. - Management per hematology and primary team. Platelet count 146 today. - Subjective Interval history: Mr. Jarvis has been seen and evaluated. No acute changes over night. Denies any fevers, chills, diaphoresis, productive cough, chest pain or worsening of SOB. His right lower extremity pain from yesterday has improved significantly and he is able to bend and flex without any discomfort. He denies any other acute changes overnight and is awaiting transfer to the general medical floor. Infect Dis PN-Objective Data - Labs CBC & Chem 7: 05/08/17 04:30 05/08/17 04:30 Labs: Laboratory Results - last 24 hr 05/04/17 05/07/17 05/07/17 15:32 05:09 07:15 WBC RBC Hgb Hct MCV MCH MCHC RDW Plt Count MPV [id number] Activity 98 Sodium Potassium Chloride Carbon Dioxide BUN Creatinine Est GFR ( Amer) Est GFR (Non-Af Amer) BUN/Creatinine Ratio Glucose POC Glucose 108 H Calculated Osmolality Calcium Blood Type O POSITIVE Antibody Screen NEGATIVE Crossmatch See Detail 05/07/17 05/07/17 05/07/17 12:08 16:30 16:46 WBC 5.5 RBC 2.97 L Hgb 8.3 L D Hct 24.7 L MCV 83.2 MCH 27.9 L MCHC 33.6 RDW 13.6 Plt Count 112 L MPV 10.1 [id number] Activity Sodium Potassium Chloride Carbon Dioxide BUN Creatinine Est GFR ( Amer) Est GFR (Non-Af Amer) BUN/Creatinine Ratio Glucose POC Glucose 145 H 171 H Calculated Osmolality Calcium Blood Type Antibody Screen Crossmatch 05/07/17 05/07/17 05/08/17 17:00 23:35 04:30 WBC 4.4 RBC 3.35 L Hgb 9.5 L Hct 27.6 L MCV 82.4 L MCH 28.4 MCHC 34.4 RDW 13.7 Plt Count 146 MPV 9.5 [id number] Activity Sodium 132 L Potassium 4.1 Chloride 93 L Carbon Dioxide 22 L BUN 87 H Creatinine 8.28 H Est GFR ( Amer) 8 L Est GFR (Non-Af Amer) 7 L BUN/Creatinine Ratio 11 Glucose 178 H POC Glucose 124 H Calculated Osmolality 305 H Calcium 8.1 L Blood Type Antibody Screen Crossmatch 05/08/17 04:30 WBC RBC Hgb Hct MCV MCH MCHC RDW Plt Count MPV [id number] Activity Sodium 134 L Potassium 4.3 Chloride 97 L Carbon Dioxide 24 BUN 52 H Creatinine 5.74 H Est GFR ( Amer) 12 L Est GFR (Non-Af Amer) 10 L BUN/Creatinine Ratio 9 Glucose 119 H POC Glucose Calculated Osmolality 293 Calcium 8.6 Blood Type Antibody Screen Crossmatch Cultures: Cultures 04/27/17 07:17 Blood Culture - Final Peripheral Venipuncture No growth. 04/27/17 07:17 Blood Culture - Final Peripheral Venipuncture No growth. 04/27/17 13:52 Sputum Culture - Final Sputum Staphylococcus aureus 04/22/17 12:35 Blood Culture - Final Peripheral Venipuncture No growth. 04/22/17 12:35 Blood Culture - Final Peripheral Venipuncture No growth. 04/24/17 11:15 Sputum Culture - Final Sputum Staphylococcus aureus 04/20/17 10:15 Anaerobic Culture - Final Left Wrist - Abscess No anaerobes were recovered. 04/20/17 03:48 Blood Culture - Final Peripheral Venipuncture Staphylococcus aureus 04/20/17 03:48 Blood Culture - Final Peripheral Venipuncture Staphylococcus aureus 04/20/17 10:15 Wound Culture - Final Left Wrist - Abscess Staphylococcus aureus Serology 05/03/17 04/27/17 04/20/17 Range/Units 06:54 16:25 10:55 Stl C. diff Tox B Gene Negative (Negative) A. baumannii (PCR) (Not Detect) Chlamy pneumoniae PCR Not Detected (Not Detect) Adenovirus (PCR) Not Detected (Not Detect) B. pertussis DNA (PCR) Not Detected (Not Detect) B.parapertussis DNA PCR Not Detected (Not Detect) Aixa albicans (PCR) (Not Detect) C. glabrata (PCR) (Not Detect) C. krusei (PCR) (Not Detect) C. parapsilosis (PCR) (Not Detect) C. tropicalis (PCR) (Not Detect) Coronavirus OC43 (PCR) Not Detected (Not Detect) Coronavirus HKU1 (PCR) Not Detected (Not Detect) Coronavirus 229E (PCR) Not Detected (Not Detect) Coronavirus NL63 (PCR) Not Detected (Not Detect) Enterobacteriac sp PCR (Not Detect) E. cloacae complex PCR (Not Detect) Enterococcus sp PCR (Not Detect) E. coli (PCR) (Not Detect) H. influenzae (PCR) (Not Detect) Hep Bs Antigen Nonreactive (Nonreactive) Hep Bs Antibody 5.77 mIU/mL Human Metapneumovir PCR Not Detected (Not Detect) Influenza A (H1) PCR Not Detected (Not Detect) Influ A (H1N1/09) PCR Not Detected (Not Detect) Influenza A (H3) PCR Not Detected (Not Detect) Influenza A Untype (PCR) Not Detected (Not Detect) Influenza Type B (PCR) Not Detected (Not Detect) Klebsiella oxytoca PCR (Not Detect) Klebsiella pneumoniae (Not Detect) List. monocytogenes PCR (Not Detect) M.pneumoniae DNA (PCR) Not Detected (Not Detect) N. meningitidis (PCR) (Not Detect) Parainfluenza 1 (PCR) Not Detected (Not Detect) Parainfluenza 2 (PCR) Not Detected (Not Detect) Parainfluenza 3 (PCR) Not Detected (Not Detect) Parainfluenza 4 (PCR) Not Detected (Not Detect) Proteus species (PCR) (Not Detect) RSV (PCR) Not Detected (Not Detect) Entero/Rhino (PCR) Not Detected (Not Detect) Serratia marcescens PCR (Not Detect) Staphylococcus sp PCR (Not Detect) Staph aureus (PCR) (Not Detect) mecA-Methicil Res Gene (Not Detect) Streptococcus sp PCR (Not Detect) Group A Strep DNA (Not Detect) Group B Strep (PCR) (Not Detect) Strep pneumoniae (PCR) (Not Detect) P. aeruginosa (PCR) (Not Detect) Mariam/B-Vanco Res Genes (Not Detect) KPC (blaKPC) Detect PCR (Not Detect) 04/20/17 Range/Units 03:48 Stl C. diff Tox B Gene (Negative) A. baumannii (PCR) Not Detected (Not Detect) Chlamy pneumoniae PCR (Not Detect) Adenovirus (PCR) (Not Detect) B. pertussis DNA (PCR) (Not Detect) B.parapertussis DNA PCR (Not Detect) Aixa albicans (PCR) Not Detected (Not Detect) C. glabrata (PCR) Not Detected (Not Detect) C. krusei (PCR) Not Detected (Not Detect) C. parapsilosis (PCR) Not Detected (Not Detect) C. tropicalis (PCR) Not Detected (Not Detect) Coronavirus OC43 (PCR) (Not Detect) Coronavirus HKU1 (PCR) (Not Detect) Coronavirus 229E (PCR) (Not Detect) Coronavirus NL63 (PCR) (Not Detect) Enterobacteriac sp PCR Not Detected (Not Detect) E. cloacae complex PCR Not Detected (Not Detect) Enterococcus sp PCR Not Detected (Not Detect) E. coli (PCR) Not Detected (Not Detect) H. influenzae (PCR) Not Detected (Not Detect) Hep Bs Antigen (Nonreactive) Hep Bs Antibody mIU/mL Human Metapneumovir PCR (Not Detect) Influenza A (H1) PCR (Not Detect) Influ A (H1N1/09) PCR (Not Detect) Influenza A (H3) PCR (Not Detect) Influenza A Untype (PCR) (Not Detect) Influenza Type B (PCR) (Not Detect) Klebsiella oxytoca PCR Not Detected (Not Detect) Klebsiella pneumoniae Not Detected (Not Detect) List. monocytogenes PCR Not Detected (Not Detect) M.pneumoniae DNA (PCR) (Not Detect) N. meningitidis (PCR) Not Detected (Not Detect) Parainfluenza 1 (PCR) (Not Detect) Parainfluenza 2 (PCR) (Not Detect) Parainfluenza 3 (PCR) (Not Detect) Parainfluenza 4 (PCR) (Not Detect) Proteus species (PCR) Not Detected (Not Detect) RSV (PCR) (Not Detect) Entero/Rhino (PCR) (Not Detect) Serratia marcescens PCR Not Detected (Not Detect) Staphylococcus sp PCR DETECTED A (Not Detect) Staph aureus (PCR) DETECTED A (Not Detect) mecA-Methicil Res Gene Not Detected (Not Detect) Streptococcus sp PCR Not Detected (Not Detect) Group A Strep DNA Not Detected (Not Detect) Group B Strep (PCR) Not Detected (Not Detect) Strep pneumoniae (PCR) Not Detected (Not Detect) P. aeruginosa (PCR) Not Detected (Not Detect) Mariam/B-Vanco Res Genes Not Detected (Not Detect) KPC (blaKPC) Detect PCR Not Detected (Not Detect) Exam - Constitutional Vitals: Temp Pulse Resp BP Pulse Ox 98.1 F 74 26 132/99 94 05/08/17 07:30 05/08/17 04:30 05/08/17 04:00 05/08/17 04:00 05/08/17 04:00 - Head Head exam: Present: atraumatic, normocephalic - Neck Neck exam: Present: normal inspection. Absent: tenderness - Respiratory Respiratory exam: Present: CTAB - Cardiovascular Cardiovascular exam: Present: RRR, +S1, +S2 - GI/Abdominal GI/Abdominal exam: Present: normal bowel sounds, soft. Absent: tenderness - Extremities Exam Additional comments: Symmetric bilateral extremities which the patient's moving spontaneously. Lower extremities have improving petechiae. - VTE Documentation of Mechanical Device: Intermittent pneumatic compression device Consult Discharge Plan - Plan Referrals: Kannan Hurley DO [Primary Care Provider] - Juan Lake [Family Provider] - - Attending Attestation I examined this patient and my medical decision-making was reviewed with the Resident Physician. I agree with the documented findings, disposition and treatment plan as described except to the extent set forth below. if fever persists, consider repeating cxr and get a urinalysis and a blood cultures
[2017-05-08] MEDS: Isosorbide MONOnitrate (24 HR) 30 MG TAB.ER.24H PO SCH (08:53)
[2017-05-08] MEDS: amLODIPine 5 MG TABLET PO SCH (08:53)
[2017-05-08] MEDS: *HR* Ticagrelor 90 MG TABLET PO SCH ×2 (08:54→19:58)
[2017-05-08] MEDS: Insulin LISPRO 300 UNITS/3 ML VIAL SQ SCH ×3 (08:55→17:06)
[2017-05-08] MEDS: Chlorhexidine Rinse 15 ML MOUTHWASH MM SCH (08:56)
[2017-05-08] MEDS ORDERED: D5% in Water 1,000 ML IVC PRN (10:46)
[2017-05-08] MEDS ORDERED: *HR* Metoprolol 5 MG/5 ML VIAL IVP PRN (10:46)
[2017-05-08] MEDS ORDERED: *HR* Heparin 10,000 UNIT/10 ML VIAL IV PRN (10:46)
[2017-05-08] MEDS ORDERED: Naloxone 0.4 MG/ML INJ IVP PRN (10:46)
[2017-05-08] MEDS ORDERED: Dextrose Gel 15 GM/37.5 ML TUBE PO PRN ×2 (10:46)
[2017-05-08] MEDS ORDERED: *HR* Promethazine 25 MG/ML VIAL IVP PRN (10:46)
[2017-05-08] MEDS ORDERED: *HR* Dextrose 50 % in Water (Syg) 50 ML SYRINGE IVP PRN (10:46)
--- NOTE | 2017-05-08 10:52 | Nephrology Progress Note ---
Date of Encounter: 05/08/17 Time of Encounter: 08:55 - Assessment and Plan (1) NANCY (acute kidney injury) Current Visit: Yes Status: Acute Tentatively plan for the next HD on Sunday. When stable from a platelet and infection perspective, he'll need a Permacath. Agree with PT/OT but since he has been using a Right Fem temporary HD catheter, I would ask that he avoid hip flexion to avoid kinking the the HD catheter. Continue to follow a renal protective strategy and strict I/Os and daily weights. (2) Hyponatremia Current Visit: Yes Status: Acute Improved. (3) Abdominal compartment syndrome Current Visit: Yes Status: Resolved At the beginning of his presentation / admission, he had a very distended/tense abd. This now appears resolved. Qualifiers: Compartment syndrome type: non-traumatic Qualified Code(s): M79.A3 - Nontraumatic compartment syndrome of abdomen (4) Septic shock Current Visit: Yes Status: Resolved ICU following. Appears resolved (5) Methicillin susceptible Staphylococcus aureus pneumonia Current Visit: Yes Status: Acute As per ICU/Pulm Qualifiers: Laterality: bilateral Lung location: unspecified part of lung Qualified Code(s): J15.211 - Pneumonia due to Methicillin susceptible Staphylococcus aureus (6) Thrombocytopenia Current Visit: Yes Status: Acute Followed by Hematology who read peripheral smear and did not suspect DIC or see schistocytes, per report. Subjective Principal diagnosis: Sepsis/Septic Shock Interval history: Pt was s/e and his was at bedside. He did not affirm N/V/D or chest pain. He said that his knee pains are improving, and the ACUTE CARE NURSE PRACTITIONER asked me about PT/OT starting soon with regards to the right Femoral vein HD catheter. Objective - Vital Signs Vital signs: Vital Signs Temp Pulse Resp BP Pulse Ox 05/08/17 09:05 80 20 153/75 05/08/17 09:00 80 05/08/17 08:45 80 20 153/75 05/08/17 07:30 98.1 F 05/08/17 05:54 100 F H 05/08/17 04:30 74 05/08/17 04:00 74 26 132/99 94 05/08/17 00:38 69 22 121/82 96 05/08/17 00:33 99.4 F 05/08/17 00:30 69 05/07/17 22:07 17 96 03/19/18 21:40 74 05/07/17 21:39 97.6 F 18 165/79 05/07/17 21:34 98.3 F 74 22 134/72 94 05/07/17 21:00 152/80 05/07/17 20:45 144/77 05/07/17 20:30 149/82 05/07/17 20:15 143/73 05/07/17 20:00 156/82 05/07/17 19:45 163/80 05/07/17 19:30 158/75 05/07/17 19:15 151/75 05/07/17 19:00 136/67 05/07/17 18:45 159/76 05/07/17 18:30 154/63 05/07/17 18:15 147/59 05/07/17 18:00 151/80 05/07/17 17:45 157/74 05/07/17 17:30 153/78 05/07/17 17:15 162/78 05/07/17 17:00 97.7 F 18 154/71 05/07/17 16:00 98.8 F 64 21 127/69 96 05/07/17 12:27 98.6 F 62 21 129/75 94 05/07/17 12:00 98.8 F 61 21 132/80 92 Intake and Output 05/07/17 05/08/17 05/08/17 23:59 07:59 15:59 Intake Total 610 / 610 200 / 200 120 / 120 Output Total 4695 / 4695 45 / 45 Balance -4085 / -4085 155 / 155 120 / 120 Intake: IV Fluids 10 / 10 Ancef 500 MG In Water for inj. 10 10 (sterile) 10 ML @ 200 mls/hr IVP Q24H [facility] Rx#:[id number] Oral 0 / 0 200 / 200 120 / 120 Intake, Rinseback and Flushes 600 / 600 Output: Urine 0 / 0 Total Dialysis (HD) Output 4600 / 4600 Catheter 95 / 95 45 / 45 Other: Meal Breakfast Percent of Meal Consumed 75% Stool Size Moderate Stool Consistency loose liquid Stool Color Brown Yellow Weight 92.3 kg Blood Glucose* 171 110 Hemodialysis Net Fluid Removed 4000 (mL) - General Appearance Exam: General appearance: Present: well-developed, appears started age, fatigue, frail but generally appears better EENT: Present: ATNC, PERRL, mucous membranes moist Neck: Present: supple Respiratory: Present: clear to auscultation anteriorlly Cardiology: Present: regular rate, regular rhythm, normal S1, normal S2 without peripheral edema Dialysis Vascular Access: Venous Catheter (right femorary temporary HD catheter had dressing that was C/D/I and was not tender to palpation) Integumentary: Present: warm and dry Neurologic: Present: no focal deficit, no asterixis, alert and oriented x3 Musculoskeletal: Present: no cyanosis, no clubbing Psychiatric: Present: mood/affect appropriate, cooperative - Lab 05/09/17 03:40 05/09/17 03:40 Most recent lab results ABG pH 7.46 pH Units (7.32-7.45) H 05/01/17 04:55 ABG pCO2 37 mmHg (35-45) 05/01/17 04:55 ABG pO2 60 mmHg (85-104) L 05/01/17 04:55 ABG HCO3 26 mEq/L (21-27) 05/01/17 04:55 ABG O2 Saturation 92 % (95-98) L 05/01/17 04:55 Calcium 8.6 mg/dL (8.6-10.3) 05/08/17 04:30 Phosphorus 3.0 mg/dL (2.7-4.5) 04/27/17 03:49 Magnesium 2.1 mg/dL (1.6-2.6) 04/28/17 03:15 - VTE Documentation of Mechanical Device: Intermittent pneumatic compression device Consult Discharge Plan - Plan Referrals: Kannan Hurley DO [Primary Care Provider] - Juan Lake [Family Provider] -
[2017-05-08] MEDS ORDERED: Acetylcysteine 10% 2 ML INHSOL IH SCH (15:00)
[2017-05-08] MEDS ORDERED: ceFAZolin 1,000 MG in Water for inj. (sterile) 10 ML IVP SCH (18:00)
[2017-05-08] MEDS: ceFAZolin 1,000 MG in Water for inj. (sterile) 20 ML 10 ML IVP SCH (18:16)
--- NOTE | 2017-05-08 23:22 | Internal Med Progress Note ---
Date of Encounter: 05/08/17 Time of Encounter: 15:40 - Subjective Interval history: MSSA bacteremia with sepsis ID following ID believes bacteremia may have starte from infection at wrist TTE done but no mention of vegitations. CTA findings concerning for possible septic emboli. LYDIA needed per ID to r/o endocarditis (talk with ID and cardiology tomorrow) Nafcillin d/c'd due to worsening thrombocytopenia Now on Cefazolin 1000mg Q24hrs -treatment duration 4 weeks from negative blood culture 04/22/17 (Anticipated end date 05/21/17). From ID note: (culture reports) Sputum culture 04/27 (+) Staphylococcus aureus Blood culture peripheral 04/27 (-) no growth Sputum culture 04/24 (+) light colonies staph aureus Blood culture peripheral 04/22 (-) no growth Blood culture peripheral 04/20 (+) MSSA Wound culture Lt wrist 04/20 (+) MSSA Anaerobic culture Lt wrist 04/20 (-) no anaerobes were recovered (2) MRSA pneumonia Current Visit: Yes Status: Acute MSSA positive sputum cultures on 04/24/2017, 05/07/2017 Chest CTA demonstrated multifocal nodular consolidations. Clinically improved Abx as noted above (3) NSTEMI (non-ST elevated myocardial infarction) Patient has recent PCI Aspirin and Brilinta restarted No chest pain (4) Wrist infection Left wrist wound and skin infection which grew MSSA Abxas noted above (5) Thrombocytopenia Improving Dual antiplatelet agents restarted yesterday - Constitutional Vitals: Temp Pulse Resp BP Pulse Ox 98.3 F 63 20 156/91 93 05/08/17 23:09 05/08/17 23:18 05/08/17 23:18 05/08/17 23:18 05/08/17 23:18 General appearance: Present: mild distress, A&O X 3, pleasant, answers questions appropriately - Head Head exam: Present: atraumatic, normocephalic - Eye Eye exam: Present: PERRL, conjuntiva pink, sclera anicteric Pupils: Present: PERRL - Neck Neck exam general surgery: Present: supple, trachea midline. Absent: lymphadenopathy - Respiratory Respiratory exam: Present: CTAB, rales. Absent: accessory muscle use, rhonchi, stridor, wheezes - Cardiovascular Cardiovascular exam: Present: RRR, +S1, +S2. Absent: diastolic murmur, gallop, rubs, systolic murmur Additional comments: No murmurs noted - GI/Abdominal GI/Abdominal exam: Present: normal bowel sounds, soft, no peritoneal signs. Absent: distended, tenderness - Extremities Exam Extremities exam: Present: calf tenderness, warm. Absent: cyanotic, pedal edema - Neurological Exam Neurological exam: Present: CN II-XII intact, oriented X3, no focal deficits. Absent: pronater drift, facial droop, speech deficit - Psychiatric Psychiatric exam: Present: normal affect, normal mood - Skin Skin exam: Present: dry, intact Internal Medicine: Result - Labs CBC & Chem 7: 05/08/17 04:30 05/08/17 04:30 Labs: Short CBC 05/08/17 Range/Units 04:30 WBC 4.4 (4.3-11.1) K/mcL Hgb 9.5 L (12.9-16.9) g/dL Hct 27.6 L (37.5-50.1) % Plt Count 146 (140-400) K/mcL BMP 05/08/17 04:30 Sodium 134 L Potassium 4.3 Chloride 97 L Carbon Dioxide 24 BUN 52 H Creatinine 5.74 H Glucose 119 H Calcium 8.6 - ABG Interpretation ABG results: ABG ABG pH 7.46 pH Units (7.32-7.45) H 05/01/17 04:55 ABG pCO2 37 mmHg (35-45) 05/01/17 04:55 ABG pO2 60 mmHg (85-104) L 05/01/17 04:55 ABG O2 Saturation 92 % (95-98) L 05/01/17 04:55 PT/INR, D-dimer PT 16.9 Seconds (9.4-12.1) H 05/04/17 13:30 D-Dimer 7347 ng/mLFEU (0-500) H 05/04/17 13:30 - VTE Documentation of Mechanical Device: Intermittent pneumatic compression device Consult Discharge Plan - Plan Referrals: Kannan Hurley DO [Primary Care Provider] - Juan Lake [Family Provider] -
[2017-05-09] MEDS: Albuterol 2.5 MG/3 ML NEBULIZER IH SCH ×3 (01:01→22:25)
[2017-05-09 04:11] LABS: Hematocrit 24.8 % (37.5-50.1); Hemoglobin 8.6 g/dL (12.9-16.9); Mean Corpuscular HGB Conc 34.7 g/dL (31.6-35.5); Mean Corpuscular Hemoglobin 28.5 pg (28.0-33.3); Mean Corpuscular Volume 82.1 fL (83.0-100.0); Mean Platelet Volume 9.3 fL (9.4-12.4); Platelet Count 171 K/mcL (140-400); Red Blood Count 3.02 M/mcL (4.19-5.50); Red Cell Distribution Width 13.4 % (11.5-14.5)
[2017-05-09 04:17] LABS: Calcium 8.4 mg/dL (8.6-10.3); Potassium 4.1 mEq/L (3.5-5.1)
[2017-05-09] MEDS ORDERED: 0.9 % Sodium Chloride 250 ML IVC PRN (06:53)
[2017-05-09] MEDS ORDERED: 0.9 % Sodium Chloride 2,000 ML ONE (06:56)
[2017-05-09] MEDS ORDERED: *HR* Heparin 10,000 UNIT/10 ML VIAL IV PRN (07:13)
[2017-05-09] MEDS: Insulin LISPRO 300 UNITS/3 ML VIAL SQ SCH ×3 (07:54→17:14)
[2017-05-09] MEDS: Ondansetron 4 MG/2 ML VIAL IVP PRN (07:58)
--- NOTE | 2017-05-09 08:16 | Nephrology Progress Note ---
Date of Encounter: 05/09/17 Time of Encounter: 08:14 - Assessment and Plan (1) NANCY (acute kidney injury) Current Visit: Yes Status: Acute Patient received HD today. Continued to discuss with patient to avoid hip flexion to avoid kinking of Right Remoral Temporary HD cath. - Plt's are now stable, vitals are stable, and no leukocytosis. Will plan for permacath placement tomorrow. NPO at Midnight, and IR consulted. Per IR request, ordered INR. - avoid nephrotoxin - strict I/O, and daily weights (2) Abdominal compartment syndrome Current Visit: Yes Status: Resolved on admission patient had a very distended abdomen, has since resolved. Qualifiers: Compartment syndrome type: non-traumatic Qualified Code(s): M79.A3 - Nontraumatic compartment syndrome of abdomen (3) Hyponatremia Current Visit: Yes Status: Acute has remained stable Na 133-134. (4) Methicillin susceptible Staphylococcus aureus pneumonia Current Visit: Yes Status: Acute as per medicine team Qualifiers: Laterality: bilateral Lung location: unspecified part of lung Qualified Code(s): J15.211 - Pneumonia due to Methicillin susceptible Staphylococcus aureus (5) Thrombocytopenia Current Visit: Yes Status: Acute per medicine team. (6) Septic shock Current Visit: Yes Status: Resolved Antibiotics per medicine team Subjective Principal diagnosis: Sepsis/Septic Shock Interval history: Patient was transferred off of ICU team yesterday and is now with Internal Medicine team. Patient was seen while receiving dialysis this morning. Patient states he continues to feel nauseous today. Patient denies vomiting, or diarrhea at this time. Patient denies fever, racing heart, or diaphoresis. Objective - Vital Signs Vital signs: Vital Signs Temp Pulse Resp BP Pulse Ox 05/09/17 07:00 98 F 67 20 147/80 97 05/09/17 03:47 58 22 147/76 96 05/09/17 03:16 98.0 F 05/09/17 01:01 18 93 05/08/17 23:18 63 20 156/91 93 05/08/17 23:09 98.3 F 05/08/17 20:03 63 22 133/74 92 05/08/17 18:44 97.9 F 05/08/17 18:01 16 114/58 95 05/08/17 17:00 98.2 F 70 20 114/58 93 05/08/17 13:00 65 05/08/17 12:45 98.4 F 68 16 114/58 95 05/08/17 11:30 73 18 05/08/17 09:05 80 20 153/75 05/08/17 09:00 80 05/08/17 08:45 80 20 153/75 Intake and Output 05/08/17 05/09/17 05/09/17 23:59 07:59 15:59 Intake Total 410 / 410 Output Total 0 / 0 0 / 0 Balance 410 / 410 0 / 0 Intake: IV Fluids Ancef 1,000 MG In Water for inj . (sterile) 10 ML @ 200 mls/hr IVP Q24H CECILIO Rx#:[id number] Oral 400 / 400 Output: Urine 0 / 0 0 / 0 Other: Stool Size Large Stool Consistency loose soft Stool Color Brown # Voids 1 Blood Glucose* 120 101 - General Appearance General appearance: Present: well-developed, appears started age, fatigue, frail EENT: Present: mucous membranes moist Neck: Present: no JVD Respiratory: Present: clear Cardiology: Present: no murmurs, no rub, no gallops, no edema, regular rate, regular rhythm, normal S1, normal S2 Dialysis Vascular Access: Venous Catheter (R femoral temprorary HD Cath that is clean, dry, and intact. non-tender to palpation.) Integumentary: Present: warm and dry Neurologic: Present: no focal deficit, no asterixis, alert and oriented x3 Musculoskeletal: Present: no deformities, no erythema, no cyanosis, no clubbing Psychiatric: Present: mood/affect appropriate, cooperative - Lab 05/09/17 03:40 05/09/17 03:40 Most recent lab results ABG pH 7.46 pH Units (7.32-7.45) H 05/01/17 04:55 ABG pCO2 37 mmHg (35-45) 05/01/17 04:55 ABG pO2 60 mmHg (85-104) L 05/01/17 04:55 ABG HCO3 26 mEq/L (21-27) 05/01/17 04:55 ABG O2 Saturation 92 % (95-98) L 05/01/17 04:55 Calcium 8.4 mg/dL (8.6-10.3) L 05/09/17 03:40 Phosphorus 3.0 mg/dL (2.7-4.5) 04/27/17 03:49 Magnesium 2.1 mg/dL (1.6-2.6) 04/28/17 03:15 - VTE Documentation of Mechanical Device: Intermittent pneumatic compression device Consult Discharge Plan - Plan Referrals: Kannan Hurley DO [Primary Care Provider] - Juan Lake [Family Provider] -
--- NOTE | 2017-05-09 09:30 | Internal Med Progress Note ---
Date of Encounter: 05/09/17 Time of Encounter: 09:30 - Subjective Interval history: Interval changes: 05/09/2017: Pt had HD today Feeling good today Breathing comfortably Spoke to ID about LYDIA (reconsult Cardiology tomorrow) MSSA bacteremia with sepsis ID following ID believes bacteremia may have started from infection at wrist TTE done but no mention of vegetations. CTA findings concerning for possible septic emboli. LYDIA needed per ID to r/o endocarditis (talk with ID and cardiology tomorrow) Nafcillin d/c'd due to worsening thrombocytopenia Now on Cefazolin 1000mg Q24hrs -treatment duration 4 weeks from negative blood culture 04/22/17 (Anticipated end date 05/21/17). From ID note: (culture reports) Sputum culture 04/27 (+) Staphylococcus aureus Blood culture peripheral 04/27 (-) no growth Sputum culture 04/24 (+) light colonies staph aureus Blood culture peripheral 04/22 (-) no growth Blood culture peripheral 04/20 (+) MSSA Wound culture Lt wrist 04/20 (+) MSSA Anaerobic culture Lt wrist 04/20 (-) no anaerobes were recovered (2) MRSA pneumonia Current Visit: Yes Status: Acute MSSA positive sputum cultures on 04/24/2017, 05/07/2017 Chest CTA demonstrated multifocal nodular consolidations. Clinically improved Abx as noted above (3) NSTEMI (non-ST elevated myocardial infarction) Patient has recent PCI Aspirin and Brilinta restarted No chest pain (4) Wrist infection Left wrist wound and skin infection which grew MSSA Abxas noted above (5) Thrombocytopenia Improving Dual antiplatelet agents restarted yesterday (6) NANCY (acute kidney injury) Per Nephrology note tentatively plan for the next HD on Sunday. He will need a Permacath when stable. Continue renal protective strategy Strict I/Os and daily weights. - Constitutional Vitals: Temp Pulse Resp BP Pulse Ox 98 F 75 20 147/80 97 05/09/17 07:00 05/09/17 07:00 05/09/17 07:00 05/09/17 07:00 05/09/17 07:00 General appearance: Present: A&O X 3, pleasant, no acute distress, answers questions appropriately - Head Head exam: Present: atraumatic, normocephalic - Eye Eye exam: Present: EOMI, PERRL, conjuntiva pink, sclera anicteric Pupils: Present: PERRL - Neck Neck exam general surgery: Present: supple, trachea midline. Absent: lymphadenopathy - Respiratory Respiratory exam: Present: CTAB. Absent: accessory muscle use, rales, rhonchi, wheezes - Cardiovascular Cardiovascular exam: Present: RRR, +S1, +S2. Absent: diastolic murmur, gallop, rubs, systolic murmur - GI/Abdominal GI/Abdominal exam: Present: normal bowel sounds, soft, no peritoneal signs. Absent: distended, tenderness - Extremities Exam Extremities exam: Present: warm, radial pulses palpable and symmetrical. Absent : calf tenderness, cyanotic, pedal edema - Neurological Exam Neurological exam: Present: CN II-XII intact, oriented X3, no focal deficits. Absent: pronater drift, facial droop, speech deficit - Psychiatric Psychiatric exam: Present: normal affect, normal mood - Skin Skin exam: Present: dry, intact Internal Medicine: Result - Labs CBC & Chem 7: 05/09/17 03:40 05/09/17 03:40 Labs: Short CBC 05/09/17 Range/Units 03:40 WBC 4.5 (4.3-11.1) K/mcL Hgb 8.6 L (12.9-16.9) g/dL Hct 24.8 L (37.5-50.1) % Plt Count 171 (140-400) K/mcL [facility] 05/09/17 03:40 Sodium 133 L Potassium 4.1 Chloride 97 L Carbon Dioxide 22 L BUN 74 H Creatinine 8.09 H Glucose 119 H Calcium 8.4 L - ABG Interpretation ABG results: ABG ABG pH 7.46 pH Units (7.32-7.45) H 05/01/17 04:55 ABG pCO2 37 mmHg (35-45) 05/01/17 04:55 ABG pO2 60 mmHg (85-104) L 05/01/17 04:55 ABG O2 Saturation 92 % (95-98) L 05/01/17 04:55 PT/INR, D-dimer PT 16.9 Seconds (9.4-12.1) H 05/04/17 13:30 D-Dimer 7347 ng/mLFEU (0-500) H 03/16/18 13:30 - VTE Documentation of Mechanical Device: Intermittent pneumatic compression device Consult Discharge Plan - Plan Referrals: Kannan Hurley DO [Primary Care Provider] - Juan Lake [Family Provider] -
--- NOTE | 2017-05-09 10:55 | Infectious Disease Progress No ---
Date of Encounter: 05/09/17 Time of Encounter: 08:20 - Assessment and Plan (1) Staphylococcus aureus bacteremia with sepsis Current Visit: Yes Status: Acute MSSA bacteremia may be secondary to left wrist infection versus MSSA pneumonia. All cultures grew same bacteria with similar sensitivities. - Patient currently on day 13 of cefazolin 1000 mg daily - Blood cultures no growth since 04/22/2017 - Vitals are stable Microbiology: Sputum culture 04/27 (+) Staphylococcus aureus Blood culture peripheral 04/27 (-) no growth Sputum culture 04/24 (+) light colonies staph aureus Blood culture peripheral 04/22 (-) no growth Blood culture peripheral 04/20 (+) MSSA Wound culture Lt wrist 04/20 (+) MSSA Anaerobic culture Lt wrist 04/20 (-) no anaerobes were recovered - Echocardiogram demonstrated LVEF 45-50%, mild global left ventricular systolic dysfunction, normal left ventricular atrial size, normal right atrial size, poorly visualized. No comment on valvular structure or negative for endocarditis. 05/08: - No active signs of infection. - Patient will need LYDIA as CTA has concerning findings for possible septic emboli. Antibiotics: Cefazolin 1000mg Q24hrs -treatment duration 4 weeks from negative blood culture 04/22/17 (Anticipated end date 05/21/17). (2) Methicillin susceptible Staphylococcus aureus pneumonia Current Visit: Yes Status: Acute MSSA positive sputum cultures on 04/24/2017, 05/07/2017 Risk Factors: MSSA-positive bacteremia and left wrist wound; possibly metastatic seeding from bacteremia. Patient also hospitalized and underwent cardiac catheterization with stent placement 3 days prior to presentation. - Chest x-ray demonstrates diffuse patchy infiltrates concerning for pneumonia - Chest CTA demonstrated multifocal nodular consolidations noted throughout both lung [place] which were concerning for pneumonia with small bilateral pleural effusions. 05/09: Clinically stable, patient denies any subjective fever, diaphoresis or chills. - Continue ceftezole 1000 mg IV every 24 hours for total treatment duration 4 weeks. Qualifiers: Laterality: bilateral Lung location: unspecified part of lung Qualified Code(s): J15.211 - Pneumonia due to Methicillin susceptible Staphylococcus aureus (3) Wound infection Current Visit: Yes Status: Acute Left wrist wound and skin infection which grew MSSA susceptible to current therapy. - Possible cause of bacteremia. Healing appropriately. (4) Thrombocytopenia Current Visit: Yes Status: Acute Improving. - Management per hematology and primary team. Platelet count 171 today. - Subjective Interval history: Mr. Jarvis has been seen and evaluated in dialysis this morning. No acute changes over night. Denies any fevers, chills, diaphoresis, productive cough, chest pain or worsening of SOB. Infect Dis PN-Objective Data - Labs CBC & Chem 7: 05/09/17 03:40 05/09/17 03:40 Labs: Laboratory Results - last 24 hr 05/08/17 05/08/17 05/08/17 04:28 07:43 12:41 WBC RBC Hgb Hct MCV MCH MCHC RDW Plt Count MPV Sodium Potassium Chloride Carbon Dioxide BUN Creatinine Est GFR ( Amer) Est GFR (Non-Af Amer) BUN/Creatinine Ratio Glucose POC Glucose 120 H 110 H 177 H Calculated Osmolality Calcium 05/08/17 05/08/17 05/09/17 17:03 18:47 03:40 WBC 4.5 RBC 3.02 L Hgb 8.6 L Hct 24.8 L MCV 82.1 L MCH 28.5 MCHC 34.7 RDW 13.4 Plt Count 171 MPV 9.3 L Sodium Potassium Chloride Carbon Dioxide BUN Creatinine Est GFR ( Amer) Est GFR (Non-Af Amer) BUN/Creatinine Ratio Glucose POC Glucose 188 H 120 H Calculated Osmolality Calcium 05/09/17 03:40 WBC RBC Hgb Hct MCV MCH MCHC RDW Plt Count MPV Sodium 133 L Potassium 4.1 Chloride 97 L Carbon Dioxide 22 L BUN 74 H Creatinine 8.09 H Est GFR ( Amer) 8 L Est GFR (Non-Af Amer) 7 L BUN/Creatinine Ratio 9 Glucose 119 H POC Glucose Calculated Osmolality 299 Calcium 8.4 L Cultures: Cultures 04/27/17 07:17 Blood Culture - Final Peripheral Venipuncture No growth. 04/27/17 07:17 Blood Culture - Final Peripheral Venipuncture No growth. 04/27/17 13:52 Sputum Culture - Final Sputum Staphylococcus aureus 04/22/17 12:35 Blood Culture - Final Peripheral Venipuncture No growth. 04/22/17 12:35 Blood Culture - Final Peripheral Venipuncture No growth. 04/24/17 11:15 Sputum Culture - Final Sputum Staphylococcus aureus 04/20/17 10:15 Anaerobic Culture - Final Left Wrist - Abscess No anaerobes were recovered. 04/20/17 03:48 Blood Culture - Final Peripheral Venipuncture Staphylococcus aureus 04/20/17 03:48 Blood Culture - Final Peripheral Venipuncture Staphylococcus aureus 04/20/17 10:15 Wound Culture - Final Left Wrist - Abscess Staphylococcus aureus Serology 05/03/17 04/27/17 04/20/17 Range/Units 06:54 16:25 10:55 Stl C. diff Tox B Gene Negative (Negative) A. baumannii (PCR) (Not Detect) Chlamy pneumoniae PCR Not Detected (Not Detect) Adenovirus (PCR) Not Detected (Not Detect) B. pertussis DNA (PCR) Not Detected (Not Detect) B.parapertussis DNA PCR Not Detected (Not Detect) Aixa albicans (PCR) (Not Detect) C. glabrata (PCR) (Not Detect) C. krusei (PCR) (Not Detect) C. parapsilosis (PCR) (Not Detect) C. tropicalis (PCR) (Not Detect) Coronavirus OC43 (PCR) Not Detected (Not Detect) Coronavirus HKU1 (PCR) Not Detected (Not Detect) Coronavirus 229E (PCR) Not Detected (Not Detect) Coronavirus NL63 (PCR) Not Detected (Not Detect) Enterobacteriac sp PCR (Not Detect) E. cloacae complex PCR (Not Detect) Enterococcus sp PCR (Not Detect) E. coli (PCR) (Not Detect) H. influenzae (PCR) (Not Detect) Hep Bs Antigen Nonreactive (Nonreactive) Hep Bs Antibody 5.77 mIU/mL Human Metapneumovir PCR Not Detected (Not Detect) Influenza A (H1) PCR Not Detected (Not Detect) Influ A (H1N1/09) PCR Not Detected (Not Detect) Influenza A (H3) PCR Not Detected (Not Detect) Influenza A Untype (PCR) Not Detected (Not Detect) Influenza Type B (PCR) Not Detected (Not Detect) Klebsiella oxytoca PCR (Not Detect) Klebsiella pneumoniae (Not Detect) List. monocytogenes PCR (Not Detect) M.pneumoniae DNA (PCR) Not Detected (Not Detect) N. meningitidis (PCR) (Not Detect) Parainfluenza 1 (PCR) Not Detected (Not Detect) Parainfluenza 2 (PCR) Not Detected (Not Detect) Parainfluenza 3 (PCR) Not Detected (Not Detect) Parainfluenza 4 (PCR) Not Detected (Not Detect) Proteus species (PCR) (Not Detect) RSV (PCR) Not Detected (Not Detect) Entero/Rhino (PCR) Not Detected (Not Detect) Serratia marcescens PCR (Not Detect) Staphylococcus sp PCR (Not Detect) Staph aureus (PCR) (Not Detect) mecA-Methicil Res Gene (Not Detect) Streptococcus sp PCR (Not Detect) Group A Strep DNA (Not Detect) Group B Strep (PCR) (Not Detect) Strep pneumoniae (PCR) (Not Detect) P. aeruginosa (PCR) (Not Detect) Mariam/B-Vanco Res Genes (Not Detect) KPC (blaKPC) Detect PCR (Not Detect) 04/20/17 Range/Units 03:48 Stl C. diff Tox B Gene (Negative) A. baumannii (PCR) Not Detected (Not Detect) Chlamy pneumoniae PCR (Not Detect) Adenovirus (PCR) (Not Detect) B. pertussis DNA (PCR) (Not Detect) B.parapertussis DNA PCR (Not Detect) Aixa albicans (PCR) Not Detected (Not Detect) C. glabrata (PCR) Not Detected (Not Detect) C. krusei (PCR) Not Detected (Not Detect) C. parapsilosis (PCR) Not Detected (Not Detect) C. tropicalis (PCR) Not Detected (Not Detect) Coronavirus OC43 (PCR) (Not Detect) Coronavirus HKU1 (PCR) (Not Detect) Coronavirus 229E (PCR) (Not Detect) Coronavirus NL63 (PCR) (Not Detect) Enterobacteriac sp PCR Not Detected (Not Detect) E. cloacae complex PCR Not Detected (Not Detect) Enterococcus sp PCR Not Detected (Not Detect) E. coli (PCR) Not Detected (Not Detect) H. influenzae (PCR) Not Detected (Not Detect) Hep Bs Antigen (Nonreactive) Hep Bs Antibody mIU/mL Human Metapneumovir PCR (Not Detect) Influenza A (H1) PCR (Not Detect) Influ A (H1N1/09) PCR (Not Detect) Influenza A (H3) PCR (Not Detect) Influenza A Untype (PCR) (Not Detect) Influenza Type B (PCR) (Not Detect) Klebsiella oxytoca PCR Not Detected (Not Detect) Klebsiella pneumoniae Not Detected (Not Detect) List. monocytogenes PCR Not Detected (Not Detect) M.pneumoniae DNA (PCR) (Not Detect) N. meningitidis (PCR) Not Detected (Not Detect) Parainfluenza 1 (PCR) (Not Detect) Parainfluenza 2 (PCR) (Not Detect) Parainfluenza 3 (PCR) (Not Detect) Parainfluenza 4 (PCR) (Not Detect) Proteus species (PCR) Not Detected (Not Detect) RSV (PCR) (Not Detect) Entero/Rhino (PCR) (Not Detect) Serratia marcescens PCR Not Detected (Not Detect) Staphylococcus sp PCR DETECTED A (Not Detect) Staph aureus (PCR) DETECTED A (Not Detect) mecA-Methicil Res Gene Not Detected (Not Detect) Streptococcus sp PCR Not Detected (Not Detect) Group A Strep DNA Not Detected (Not Detect) Group B Strep (PCR) Not Detected (Not Detect) Strep pneumoniae (PCR) Not Detected (Not Detect) P. aeruginosa (PCR) Not Detected (Not Detect) Mariam/B-Vanco Res Genes Not Detected (Not Detect) KPC (blaKPC) Detect PCR Not Detected (Not Detect) Exam - Constitutional Vitals: Temp Pulse Resp BP Pulse Ox 97.6 F 75 18 154/70 97 05/09/17 08:25 05/09/17 07:00 05/09/17 08:25 05/09/17 09:55 05/09/17 07:00 - Head Head exam: Present: atraumatic, normocephalic - Neck Neck exam: Present: normal inspection - Respiratory Respiratory exam: Present: CTAB - Cardiovascular Cardiovascular exam: Present: RRR, +S1, +S2 - GI/Abdominal GI/Abdominal exam: Present: normal bowel sounds, soft. Absent: tenderness - Extremities Exam Extremities exam: Present: normal inspection - VTE Documentation of Mechanical Device: Intermittent pneumatic compression device Consult Discharge Plan - Plan Referrals: Kannan Hurley DO [Primary Care Provider] - Juan Lake [Family Provider] - - Attending Attestation I examined this patient and my medical decision-making was reviewed with the Resident Physician. I agree with the documented findings, disposition and treatment plan as described except to the extent set forth below.
[2017-05-09] MEDS: amLODIPine 5 MG TABLET PO SCH (13:46)
[2017-05-09] MEDS: Aspirin 81 MG TAB.CHEW PO SCH (13:46)
[2017-05-09] MEDS: Isosorbide MONOnitrate (24 HR) 30 MG TAB.ER.24H PO SCH (13:47)
[2017-05-09] MEDS: *HR* Ticagrelor 90 MG TABLET PO SCH ×2 (13:47→19:56)
[2017-05-09 14:15] LABS: INR 1.6; Prothrombin Time 16.9 Seconds (9.4-12.1)
[2017-05-09] MEDS: ceFAZolin 1,000 MG in Water for inj. (sterile) 20 ML 10 ML IVP SCH (17:14)
[2017-05-10 03:53] LABS: Basophils % 0.4 %; Eosinophils % 1.5 %; Hemoglobin 9.1 g/dL (12.9-16.9); Immature Granulocytes % 0.4 % (0-4); Lymphocytes % 16.5 %; Mean Corpuscular HGB Conc 33.7 g/dL (31.6-35.5); Mean Corpuscular Hemoglobin 27.9 pg (28.0-33.3); Mean Corpuscular Volume 82.8 fL (83.0-100.0); Mean Platelet Volume 8.8 fL (9.4-12.4); Monocytes % 8.1 %; Platelet Count 208 K/mcL (140-400); Red Blood Count 3.26 M/mcL (4.19-5.50); Red Cell Distribution Width 13.2 % (11.5-14.5); Segmented Neutrophils % 73.1 %
[2017-05-10 03:54] LABS: Eosinophils # 0.1 K/mcL (0.0-0.6); Lymphocytes # 0.8 K/mcL (0.6-4.6); Monocytes # 0.4 K/mcL (0.0-1.3); Neutrophils # 3.3 K/mcL (1.6-8.9)
[2017-05-10 04:13] LABS: Calcium 8.7 mg/dL (8.6-10.3)
[2017-05-10] MEDS: Albuterol 2.5 MG/3 ML NEBULIZER IH SCH ×3 (07:47→22:10)
[2017-05-10] MEDS: Insulin LISPRO 300 UNITS/3 ML VIAL SQ SCH ×3 (08:03→15:12)
--- NOTE | 2017-05-10 08:27 | Infectious Disease Progress No ---
Date of Encounter: 05/10/17 Time of Encounter: 08:27 - Assessment and Plan (1) Staphylococcus aureus bacteremia with sepsis Current Visit: Yes Status: Acute MSSA bacteremia may be secondary to left wrist infection versus MSSA pneumonia. All cultures grew same bacteria with similar sensitivities. - Patient currently on day 13 of cefazolin 1000 mg daily - Blood cultures no growth since 04/22/2017 - Vitals are stable Microbiology: Sputum culture 04/27 (+) Staphylococcus aureus Blood culture peripheral 04/27 (-) no growth Sputum culture 04/24 (+) light colonies staph aureus Blood culture peripheral 04/22 (-) no growth Blood culture peripheral 04/20 (+) MSSA Wound culture Lt wrist 04/20 (+) MSSA Anaerobic culture Lt wrist 04/20 (-) no anaerobes were recovered - Echocardiogram demonstrated LVEF 45-50%, mild global left ventricular systolic dysfunction, normal left ventricular atrial size, normal right atrial size, poorly visualized. No comment on valvular structure or negative for endocarditis. 05/10: - Patient will need LYDIA as CTA has concerning findings for possible septic emboli. Patient may have this completed today. Antibiotics: Cefazolin 1000mg Q24hrs -treatment duration 4 weeks from negative blood culture 04/22/17 (Anticipated end date 05/21/17). (2) Methicillin susceptible Staphylococcus aureus pneumonia Current Visit: Yes Status: Acute MSSA positive sputum cultures on 04/24/2017, 05/07/2017 Risk Factors: MSSA-positive bacteremia and left wrist wound; possibly metastatic seeding from bacteremia. Patient also hospitalized and underwent cardiac catheterization with stent placement 3 days prior to presentation. - Chest x-ray demonstrates diffuse patchy infiltrates concerning for pneumonia - Chest CTA demonstrated multifocal nodular consolidations noted throughout both lung [place] which were concerning for pneumonia with small bilateral pleural effusions. 05/09: Clinically stable, patient denies any subjective fever, diaphoresis or chills. - Continue ceftezole 1000 mg IV every 24 hours for total treatment duration 4 weeks. Qualifiers: Laterality: bilateral Lung location: unspecified part of lung Qualified Code(s): J15.211 - Pneumonia due to Methicillin susceptible Staphylococcus aureus (3) Wound infection Current Visit: Yes Status: Acute Left wrist wound and skin infection which grew MSSA susceptible to current therapy. - Possible cause of bacteremia. Healing appropriately. 05/10: - No concerning findings on exam today. (4) Thrombocytopenia Current Visit: Yes Status: Acute Improving. - Management per primary team. Platelet count 208 today. (5) Decubitus ulcer of coccyx, stage 2 Current Visit: Yes Status: Acute Stable Decubitus coccyx ulcer - Continue turning while in bed - promote oral protein in diet - Continue RN protocol for treatment - Subjective Interval history: Mr. Jarvis has been seen and evaluated in dialysis this morning. No acute changes over night. Denies any fevers, chills, diaphoresis, productive cough, chest pain or worsening of SOB. He is looking forward to rehabilitation post discharge. He understands the importance of completion of antibiotics and has no further questions. Infect Dis PN-Objective Data - Labs CBC & Chem 7: 05/10/17 03:46 05/10/17 03:46 Labs: Laboratory Results - last 24 hr 05/09/17 05/09/17 05/09/17 07:28 11:20 13:55 WBC RBC Hgb Hct MCV MCH MCHC RDW Plt Count MPV Immature Gran % Seg Neutrophils % Lymphocytes % Monocytes % Eosinophils % Basophils % Neutrophils # Lymphocytes # Monocytes # Eosinophils # Basophils # PT 16.9 H INR 1.6 Sodium Potassium Chloride Carbon Dioxide BUN Creatinine Est GFR ( Amer) Est GFR (Non-Af Amer) BUN/Creatinine Ratio Glucose POC Glucose 101 H 154 H Calculated Osmolality Calcium 05/09/17 05/10/17 05/10/17 16:55 03:46 03:46 WBC 4.6 RBC 3.26 L Hgb 9.1 L Hct 27.0 L MCV 82.8 L MCH 27.9 L MCHC 33.7 RDW 13.2 Plt Count 208 MPV 8.8 L Immature Gran % 0.4 Seg Neutrophils % 73.1 Lymphocytes % 16.5 Monocytes % 8.1 Eosinophils % 1.5 Basophils % 0.4 Neutrophils # 3.3 Lymphocytes # 0.8 Monocytes # 0.4 Eosinophils # 0.1 Basophils # 0.0 PT INR Sodium 136 Potassium 4.0 Chloride 96 L Carbon Dioxide 26 BUN 54 H Creatinine 6.41 H Est GFR ( Amer) 11 L Est GFR (Non-Af Amer) 9 L BUN/Creatinine Ratio 8 Glucose 120 H POC Glucose 187 H Calculated Osmolality 298 Calcium 8.7 Cultures: Cultures 04/27/17 07:17 Blood Culture - Final Peripheral Venipuncture No growth. 04/27/17 07:17 Blood Culture - Final Peripheral Venipuncture No growth. 04/27/17 13:52 Sputum Culture - Final Sputum Staphylococcus aureus 04/22/17 12:35 Blood Culture - Final Peripheral Venipuncture No growth. 04/22/17 12:35 Blood Culture - Final Peripheral Venipuncture No growth. 04/24/17 11:15 Sputum Culture - Final Sputum Staphylococcus aureus 04/20/17 10:15 Anaerobic Culture - Final Left Wrist - Abscess No anaerobes were recovered. 04/20/17 03:48 Blood Culture - Final Peripheral Venipuncture Staphylococcus aureus 04/20/17 03:48 Blood Culture - Final Peripheral Venipuncture Staphylococcus aureus 04/20/17 10:15 Wound Culture - Final Left Wrist - Abscess Staphylococcus aureus Serology 05/03/17 04/27/17 04/20/17 Range/Units 06:54 16:25 10:55 Stl C. diff Tox B Gene Negative (Negative) A. baumannii (PCR) (Not Detect) Chlamy pneumoniae PCR Not Detected (Not Detect) Adenovirus (PCR) Not Detected (Not Detect) B. pertussis DNA (PCR) Not Detected (Not Detect) B.parapertussis DNA PCR Not Detected (Not Detect) Aixa albicans (PCR) (Not Detect) C. glabrata (PCR) (Not Detect) C. krusei (PCR) (Not Detect) C. parapsilosis (PCR) (Not Detect) C. tropicalis (PCR) (Not Detect) Coronavirus OC43 (PCR) Not Detected (Not Detect) Coronavirus HKU1 (PCR) Not Detected (Not Detect) Coronavirus 229E (PCR) Not Detected (Not Detect) Coronavirus NL63 (PCR) Not Detected (Not Detect) Enterobacteriac sp PCR (Not Detect) E. cloacae complex PCR (Not Detect) Enterococcus sp PCR (Not Detect) E. coli (PCR) (Not Detect) H. influenzae (PCR) (Not Detect) Hep Bs Antigen Nonreactive (Nonreactive) Hep Bs Antibody 5.77 mIU/mL Human Metapneumovir PCR Not Detected (Not Detect) Influenza A (H1) PCR Not Detected (Not Detect) Influ A (H1N1/09) PCR Not Detected (Not Detect) Influenza A (H3) PCR Not Detected (Not Detect) Influenza A Untype (PCR) Not Detected (Not Detect) Influenza Type B (PCR) Not Detected (Not Detect) Klebsiella oxytoca PCR (Not Detect) Klebsiella pneumoniae (Not Detect) List. monocytogenes PCR (Not Detect) M.pneumoniae DNA (PCR) Not Detected (Not Detect) N. meningitidis (PCR) (Not Detect) Parainfluenza 1 (PCR) Not Detected (Not Detect) Parainfluenza 2 (PCR) Not Detected (Not Detect) Parainfluenza 3 (PCR) Not Detected (Not Detect) Parainfluenza 4 (PCR) Not Detected (Not Detect) Proteus species (PCR) (Not Detect) RSV (PCR) Not Detected (Not Detect) Entero/Rhino (PCR) Not Detected (Not Detect) Serratia marcescens PCR (Not Detect) Staphylococcus sp PCR (Not Detect) Staph aureus (PCR) (Not Detect) mecA-Methicil Res Gene (Not Detect) Streptococcus sp PCR (Not Detect) Group A Strep DNA (Not Detect) Group B Strep (PCR) (Not Detect) Strep pneumoniae (PCR) (Not Detect) P. aeruginosa (PCR) (Not Detect) Mariam/B-Vanco Res Genes (Not Detect) KPC (blaKPC) Detect PCR (Not Detect) 04/20/17 Range/Units 03:48 Stl C. diff Tox B Gene (Negative) A. baumannii (PCR) Not Detected (Not Detect) Chlamy pneumoniae PCR (Not Detect) Adenovirus (PCR) (Not Detect) B. pertussis DNA (PCR) (Not Detect) B.parapertussis DNA PCR (Not Detect) Aixa albicans (PCR) Not Detected (Not Detect) C. glabrata (PCR) Not Detected (Not Detect) C. krusei (PCR) Not Detected (Not Detect) C. parapsilosis (PCR) Not Detected (Not Detect) C. tropicalis (PCR) Not Detected (Not Detect) Coronavirus OC43 (PCR) (Not Detect) Coronavirus HKU1 (PCR) (Not Detect) Coronavirus 229E (PCR) (Not Detect) Coronavirus NL63 (PCR) (Not Detect) Enterobacteriac sp PCR Not Detected (Not Detect) E. cloacae complex PCR Not Detected (Not Detect) Enterococcus sp PCR Not Detected (Not Detect) E. coli (PCR) Not Detected (Not Detect) H. influenzae (PCR) Not Detected (Not Detect) Hep Bs Antigen (Nonreactive) Hep Bs Antibody mIU/mL Human Metapneumovir PCR (Not Detect) Influenza A (H1) PCR (Not Detect) Influ A (H1N1/09) PCR (Not Detect) Influenza A (H3) PCR (Not Detect) Influenza A Untype (PCR) (Not Detect) Influenza Type B (PCR) (Not Detect) Klebsiella oxytoca PCR Not Detected (Not Detect) Klebsiella pneumoniae Not Detected (Not Detect) List. monocytogenes PCR Not Detected (Not Detect) M.pneumoniae DNA (PCR) (Not Detect) N. meningitidis (PCR) Not Detected (Not Detect) Parainfluenza 1 (PCR) (Not Detect) Parainfluenza 2 (PCR) (Not Detect) Parainfluenza 3 (PCR) (Not Detect) Parainfluenza 4 (PCR) (Not Detect) Proteus species (PCR) Not Detected (Not Detect) RSV (PCR) (Not Detect) Entero/Rhino (PCR) (Not Detect) Serratia marcescens PCR Not Detected (Not Detect) Staphylococcus sp PCR DETECTED A (Not Detect) Staph aureus (PCR) DETECTED A (Not Detect) mecA-Methicil Res Gene Not Detected (Not Detect) Streptococcus sp PCR Not Detected (Not Detect) Group A Strep DNA Not Detected (Not Detect) Group B Strep (PCR) Not Detected (Not Detect) Strep pneumoniae (PCR) Not Detected (Not Detect) P. aeruginosa (PCR) Not Detected (Not Detect) Mariam/B-Vanco Res Genes Not Detected (Not Detect) KPC (blaKPC) Detect PCR Not Detected (Not Detect) Exam - Constitutional Vitals: Temp Pulse Resp BP Pulse Ox 98.2 F 67 18 136/81 96 05/10/17 08:00 05/10/17 08:00 05/10/17 08:00 05/10/17 08:00 05/10/17 08:00 - Head Head exam: Present: atraumatic, normocephalic - ENT ENT exam: Present: mucous membranes moist - Neck Neck exam: Present: normal inspection - Respiratory Respiratory exam: Present: CTAB - Cardiovascular Cardiovascular exam: Present: RRR, +S2 - GI/Abdominal GI/Abdominal exam: Present: normal bowel sounds, soft. Absent: tenderness - Extremities Exam Extremities exam: Present: normal inspection - Skin Additional comments: Stage II decubitus coccyx ulcer with healing tissue, no active signs of infection. - VTE Documentation of Mechanical Device: Intermittent pneumatic compression device Consult Discharge Plan - Plan Referrals: Kannan Hurley DO [Primary Care Provider] - Juan Lake [Family Provider] - - Attending Attestation I examined this patient and my medical decision-making was reviewed with the Resident Physician. I agree with the documented findings, disposition and treatment plan as described except to the extent set forth below.
[2017-05-10] MEDS: amLODIPine 5 MG TABLET PO SCH (08:41)
[2017-05-10] MEDS: *HR* Ticagrelor 90 MG TABLET PO SCH ×2 (08:41→20:11)
[2017-05-10] MEDS: Isosorbide MONOnitrate (24 HR) 30 MG TAB.ER.24H PO SCH (08:41)
[2017-05-10] MEDS: Aspirin 81 MG TAB.CHEW PO SCH (08:41)
--- NOTE | 2017-05-10 09:03 | Nephrology Progress Note ---
Date of Encounter: 05/10/17 Time of Encounter: 08:20 - Assessment and Plan (1) ANNCY (acute kidney injury) Current Visit: Yes Status: Acute He has developed a Dialysis dependent NANCY, and has not yet shown sufficient recovery. Today, I recommend he have a Permacath placed, and to have the SW start working with him for a chair time at a local HD unit (he and his mentioned, they are interested in the [facility] in [place], [place]). His last BCx were finalized as no growth; and, his platelets are much improved. His volume status has substantially improved, and so going forward, I would recommend not removing much fluid with HD, and this may help renal recovery to avoid XS UF. Anemia: will monitor. He has receive a dose of Aranesp at the weekly frequency; goal Hgb is 10-11. HTN: holding any NILAM or ARB for the time being d/t the NANCY. If he developed renal recovery, it would be reasonable to have an NILAM or ARB d/t his CAD history. Continue to follow a renal protective strategy and strict I/Os and daily weights. (2) Hyponatremia Current Visit: Yes Status: Acute Improved. (3) Abdominal compartment syndrome Current Visit: Yes Status: Resolved At the beginning of his presentation / admission, he had a very distended/tense abd. This now appears resolved. Qualifiers: Compartment syndrome type: non-traumatic Qualified Code(s): M79.A3 - Nontraumatic compartment syndrome of abdomen (4) Septic shock Current Visit: Yes Status: Resolved ICU following. Appears resolved (5) Methicillin susceptible Staphylococcus aureus pneumonia Current Visit: Yes Status: Acute As per ICU/Pulm Qualifiers: Laterality: bilateral Lung location: unspecified part of lung Qualified Code(s): J15.211 - Pneumonia due to Methicillin susceptible Staphylococcus aureus (6) Thrombocytopenia Current Visit: Yes Status: Acute Resolved. Subjective Principal diagnosis: Sepsis/Septic Shock Interval history: Pt was s/e and his was at bedside. He did not affirm N/V/D or chest pain. He voiced no new major events overnight. He gave verbal consent for the Permacath. He lives in [place], [place], which is near [place]. His said that they would be agreeable to having temporary/outpatient HD in the [place], [place], area. Objective - Vital Signs Vital signs: Vital Signs Temp Pulse Resp BP Pulse Ox 05/10/17 08:00 98.2 F 77 18 136/81 96 05/10/17 07:47 16 93 05/10/17 04:10 98.8 F 68 10 142/53 95 05/09/17 23:35 99.6 F 87 11 131/78 94 05/09/17 22:26 16 95 05/09/17 20:00 98.5 F 77 10 126/79 95 05/09/17 15:49 16 91 05/09/17 15:00 92 18 103/65 97 05/09/17 13:00 98.2 F 98 16 121/85 96 05/09/17 12:25 97.6 F 18 117/76 05/09/17 12:05 128/74 05/09/17 11:55 129/71 05/09/17 11:40 123/80 05/09/17 11:25 115/72 05/09/17 11:10 128/64 05/09/17 11:00 90 05/09/17 10:55 135/81 05/09/17 10:40 143/76 05/09/17 10:25 126/73 05/09/17 10:05 125/76 05/09/17 09:55 154/70 05/09/17 09:40 133/78 05/09/17 09:25 129/74 05/09/17 09:10 150/84 Intake and Output 05/09/17 05/10/17 05/10/17 23:59 07:59 15:59 Intake Total 250 / 250 Output Total 0 / 0 0 / 0 Balance 250 / 250 0 / 0 Intake: IV Fluids Ancef 1,000 MG In Water for inj . (sterile) 10 ML @ 200 mls/hr IVP Q24H [facility] Rx#:[id number] Oral 240 / 240 Output: Urine 0 / 0 0 / 0 Other: Meal Lunch Percent of Meal Consumed 75% Weight 88.8 kg Blood Glucose* 187 120 Patient Weight 05/10/17 23:59 Weight 88.8 kg - General Appearance General appearance: Present: well-developed, well-nourished, appears started age , frail EENT: Present: ATNC, PERRL, mucous membranes moist Neck: Present: supple Respiratory: Present: clear Cardiology: Present: no edema, regular rate, regular rhythm, normal S1, normal S2 Dialysis Vascular Access: Venous Catheter (right femoral vein temporary HD catheter, which had no surrounding erythema, exudates, and the dressing was very clean without blood stains.) Gastrointestinal: Present: normoactive bowel sounds, no tenderness, no guarding Integumentary: Present: warm and dry Additional Comments: petechial rash of the LE's improving, bilaterally Neurologic: Present: no focal deficit, no asterixis, alert and oriented x3 Musculoskeletal: Present: no deformities, no erythema, no cyanosis Psychiatric: Present: mood/affect appropriate, cooperative - Lab 05/10/17 03:46 05/10/17 03:46 Most recent lab results ABG pH 7.46 pH Units (7.32-7.45) H 05/01/17 04:55 ABG pCO2 37 mmHg (35-45) 05/01/17 04:55 ABG pO2 60 mmHg (85-104) L 05/01/17 04:55 ABG HCO3 26 mEq/L (21-27) 05/01/17 04:55 ABG O2 Saturation 92 % (95-98) L 05/01/17 04:55 Calcium 8.7 mg/dL (8.6-10.3) 05/10/17 03:46 Phosphorus 3.0 mg/dL (2.7-4.5) 04/27/17 03:49 Magnesium 2.1 mg/dL (1.6-2.6) 04/28/17 03:15 - VTE Documentation of Mechanical Device: Intermittent pneumatic compression device Consult Discharge Plan - Plan Referrals: Kannan Hurley DO [Primary Care Provider] - Juan Lake [Family Provider] -
[2017-05-10 09:19] LABS: INR 1.6; Prothrombin Time 17.3 Seconds (9.4-12.1)
--- NOTE | 2017-05-10 10:05 | Internal Med Progress Note ---
Date of Encounter: 05/10/17 Time of Encounter: 10:05 - Subjective Interval history: Interval changes: 05/09/2017: Pt had HD today Feeling good today Breathing comfortably Spoke to ID about LYDIA (reconsult Cardiology tomorrow) 05/10/2017: Cardiology consulted for LYDIA INR still too high for Permacath placement Continue to allow INR to drift downward unless urgency to place cath. (Consider FFP if it's urgent to place the catheter) MSSA bacteremia with sepsis ID following ID believes bacteremia may have started from infection at wrist TTE done but no mention of vegetations. CTA findings concerning for possible septic emboli. LYDIA needed per ID to r/o endocarditis (talk with ID and cardiology tomorrow) Nafcillin d/c'd due to worsening thrombocytopenia Now on Cefazolin 1000mg Q24hrs -treatment duration 4 weeks from negative blood culture 04/22/17 (Anticipated end date 05/21/17). From ID note: (culture reports) Sputum culture 04/27 (+) Staphylococcus aureus Blood culture peripheral 04/27 (-) no growth Sputum culture 04/24 (+) light colonies staph aureus Blood culture peripheral 04/22 (-) no growth Blood culture peripheral 04/20 (+) MSSA Wound culture Lt wrist 04/20 (+) MSSA Anaerobic culture Lt wrist 04/20 (-) no anaerobes were recovered (2) MRSA pneumonia Current Visit: Yes Status: Acute MSSA positive sputum cultures on 04/24/2017, 05/07/2017 Chest CTA demonstrated multifocal nodular consolidations. Clinically improved Abx as noted above (3) NSTEMI (non-ST elevated myocardial infarction) Patient has recent PCI Aspirin and Brilinta restarted No chest pain (4) Wrist infection Left wrist wound and skin infection which grew MSSA Abxas noted above (5) Thrombocytopenia Improving Dual antiplatelet agents restarted yesterday (6) NANCY (acute kidney injury) Per Nephrology note tentatively plan for the next HD on Sunday. He will need a Permacath when stable. Continue renal protective strategy Strict I/Os and daily weights. - Constitutional Vitals: Temp Pulse Resp BP Pulse Ox 98.2 F 77 18 136/81 96 05/10/17 08:00 05/10/17 08:00 05/10/17 08:00 05/10/17 08:00 05/10/17 08:00 General appearance: Present: A&O X 3, pleasant, no acute distress, answers questions appropriately - Head Head exam: Present: atraumatic, normocephalic - Eye Eye exam: Present: PERRL, conjuntiva pink, sclera anicteric Pupils: Present: PERRL - Neck Neck exam general surgery: Present: supple, trachea midline. Absent: lymphadenopathy - Respiratory Respiratory exam: Present: CTAB. Absent: accessory muscle use, rales, rhonchi, wheezes - Cardiovascular Cardiovascular exam: Present: RRR, +S1, +S2. Absent: diastolic murmur, gallop, rubs, systolic murmur - GI/Abdominal GI/Abdominal exam: Present: firm, guarding, normal bowel sounds, soft, no peritoneal signs. Absent: distended, tenderness - Extremities Exam Extremities exam: Present: warm, radial pulses palpable and symmetrical. Absent : calf tenderness, cyanotic, pedal edema - Neurological Exam Neurological exam: Present: CN II-XII intact, oriented X3, no focal deficits. Absent: pronater drift, facial droop, speech deficit - Skin Skin exam: Present: dry, intact Internal Medicine: Result - Labs CBC & Chem 7: 05/10/17 03:46 05/10/17 03:46 Labs: Short CBC 05/10/17 Range/Units 03:46 WBC 4.6 (4.3-11.1) K/mcL Hgb 9.1 L (12.9-16.9) g/dL Hct 27.0 L (37.5-50.1) % Plt Count 208 (140-400) K/mcL Neutrophils # 3.3 (1.6-8.9) K/mcL BMP 05/10/17 03:46 Sodium 136 Potassium 4.0 Chloride 96 L Carbon Dioxide 26 BUN 54 H Creatinine 6.41 H Glucose 120 H Calcium 8.7 - ABG Interpretation ABG results: ABG ABG pH 7.46 pH Units (7.32-7.45) H 05/01/17 04:55 ABG pCO2 37 mmHg (35-45) 05/01/17 04:55 ABG pO2 60 mmHg (85-104) L 05/01/17 04:55 ABG O2 Saturation 92 % (95-98) L 05/01/17 04:55 PT/INR, D-dimer PT 17.3 Seconds (9.4-12.1) H 05/10/17 09:01 D-Dimer 7347 ng/mLFEU (0-500) H 05/04/17 13:30 - VTE Documentation of Mechanical Device: Intermittent pneumatic compression device Consult Discharge Plan - Plan Referrals: Kannan Hurley DO [Primary Care Provider] - Juan Lake [Family Provider] -
[2017-05-10] MEDS ORDERED: *HR* Phytonadione 5 MG TABLET PO ONE (10:27)
[2017-05-10] MEDS ORDERED: *HR* FentaNYL (PF) 100 MCG/2 ML VIAL IVP PRN (13:19)
[2017-05-10] MEDS ORDERED: Lidocaine Viscous Oral Soln 15 ML SOLUTION MM PRN (13:19)
[2017-05-10] MEDS ORDERED: 0.9 % Sodium Chloride 500 ML IVC ONE (13:20)
[2017-05-10] MEDS ORDERED: Tetracaine/Benzocaine/Butamben 200MG/SPRAY (100SPY/BOT) MM ONE (13:20)
[2017-05-10] MEDS ORDERED: *HR* Midazolam HCl 5 MG/5 ML VIAL IVP PRN (13:20)
[2017-05-10] MEDS: ceFAZolin 1,000 MG in Water for inj. (sterile) 20 ML 10 ML IVP SCH (17:13)
[2017-05-11 04:11] LABS: Basophils % 0.4 %; Eosinophils # 0.1 K/mcL (0.0-0.6); Eosinophils % 2.7 %; Hematocrit 27.3 % (37.5-50.1); Immature Granulocytes % 0.4 % (0-4); Lymphocytes # 0.7 K/mcL (0.6-4.6); Lymphocytes % 13.2 %; Mean Corpuscular Volume 84.8 fL (83.0-100.0); Mean Platelet Volume 9.1 fL (9.4-12.4); Monocytes # 0.4 K/mcL (0.0-1.3); Monocytes % 7.8 %; Neutrophils # 3.9 K/mcL (1.6-8.9); Platelet Count 239 K/mcL (140-400); Red Blood Count 3.22 M/mcL (4.19-5.50); Red Cell Distribution Width 12.9 % (11.5-14.5); Segmented Neutrophils % 75.5 %
[2017-05-11 04:16] LABS: INR 1.5; Prothrombin Time 15.9 Seconds (9.4-12.1)
[2017-05-11 04:26] LABS: Calcium 8.8 mg/dL (8.6-10.3); Potassium 4.3 mEq/L (3.5-5.1)
[2017-05-11] MEDS ORDERED: 0.9 % Sodium Chloride 250 ML IVC PRN (07:13)
[2017-05-11] MEDS ORDERED: 0.9 % Sodium Chloride 2,000 ML ONE (07:40)
[2017-05-11] MEDS: Albuterol 2.5 MG/3 ML NEBULIZER IH SCH (07:50)
--- NOTE | 2017-05-11 07:56 | Nephrology Progress Note ---
Date of Encounter: 05/11/17 Time of Encounter: 07:56 - Assessment and Plan (1) NANCY (acute kidney injury) Current Visit: Yes Status: Acute Patient received HD today. Continued to discuss with patient to avoid hip flexion to avoid kinking of Right Remoral Temporary HD cath. Patient is setup with [facility] in [place], [place] - Plt's are now stable, vitals are stable, and no leukocytosis. - INR today is 1.5, scheduled for IR Permacath today. - avoid nephrotoxin - strict I/O, and daily weights - goal hgb is 10-11 (2) Abdominal compartment syndrome Current Visit: Yes Status: Resolved on admission patient had a very distended abdomen, has since resolved. Qualifiers: Compartment syndrome type: non-traumatic Qualified Code(s): M79.A3 - Nontraumatic compartment syndrome of abdomen (3) Hyponatremia Current Visit: Yes Status: Acute has remained stable Na 133-134. (4) Methicillin susceptible Staphylococcus aureus pneumonia Current Visit: Yes Status: Acute as per medicine team Qualifiers: Laterality: bilateral Lung location: unspecified part of lung Qualified Code(s): J15.211 - Pneumonia due to Methicillin susceptible Staphylococcus aureus (5) Thrombocytopenia Current Visit: Yes Status: Acute per medicine team. (6) Septic shock Current Visit: Yes Status: Resolved Antibiotics per medicine team Subjective Principal diagnosis: Sepsis/Septic Shock Interval history: patient Denies vomiting or diarrhea, but does admit to intermittent nausea that is improving. Patient states he continues to feel nauseous today. Patient denies fever, racing heart, or diaphoresis. Objective - Vital Signs Vital signs: Vital Signs Temp Temp Pulse Pulse Resp Resp BP 05/11/17 07:52 18 05/11/17 07:26 98.8 F 102 18 125/77 05/11/17 03:29 98.8 F 84 18 151/79 05/10/17 23:08 99.1 F 78 17 127/75 05/10/17 22:10 18 05/10/17 19:04 98.4 F 72 20 119/76 05/10/17 16:00 97.6 F 64 20 131/74 05/10/17 14:50 73 05/10/17 14:48 97.6 F 76 16 05/10/17 13:24 97.9 F 73 16 122/87 05/10/17 12:00 97.8 F 72 16 107/61 05/10/17 11:12 64 05/10/17 08:00 98.2 F 77 18 136/81 BP Pulse Ox 05/11/17 07:52 94 05/11/17 07:26 96 05/11/17 03:29 95 05/10/17 23:08 94 05/10/17 22:10 94 05/10/17 19:04 05/10/17 16:00 94 05/10/17 14:50 05/10/17 14:48 128/76 05/10/17 13:24 95 05/10/17 12:00 96 05/10/17 11:12 05/10/17 08:00 96 Intake and Output 05/10/17 05/10/17 05/11/17 15:59 23:59 07:59 Intake Total 9.7 / 9.7 0 / 0 Output Total 50 / 50 Balance -40.3 / -40.3 0 / 0 Intake: IV Fluids 9.7 / 9.7 0.9 % Sodium Chloride 500 ML @ 9.7 / 9.7 10 mls/hr IVC .Q24H [facility] Rx#: [id number] Ancef 1,000 MG In Water for inj . (sterile) 10 ML @ 200 mls/hr IVP Q24H [facility] Rx#:[id number] Oral 0 / 0 0 / 0 Output: Urine/Stool Mix 50 / 50 Other: Stool Size Moderate Stool Consistency loose formed Stool Color Brown Weight 88.451 kg Blood Glucose* 128 128 - General Appearance General appearance: Present: well-developed, well-nourished, appears started age EENT: Present: ATNC, PERRL, mucous membranes dry Neck: Present: no JVD Respiratory: Present: clear Cardiology: Present: no murmurs, no rub, no gallops, no edema, regular rate, regular rhythm, normal S1, normal S2 Dialysis Vascular Access: Venous Catheter (right femoral vein temporary HD catheter, which had no surrounding erythema, exudates, and the dressing was clean) Gastrointestinal: Present: normoactive bowel sounds, no tenderness, no guarding Integumentary: Present: warm and dry Neurologic: Present: no focal deficit, no asterixis, alert and oriented x3 Musculoskeletal: Present: no deformities, no erythema, no cyanosis Psychiatric: Present: mood/affect appropriate, cooperative - Lab 05/11/17 03:45 05/11/17 03:45 Most recent lab results ABG pH 7.46 pH Units (7.32-7.45) H 05/01/17 04:55 ABG pCO2 37 mmHg (35-45) 05/01/17 04:55 ABG pO2 60 mmHg (85-104) L 05/01/17 04:55 ABG HCO3 26 mEq/L (21-27) 05/01/17 04:55 ABG O2 Saturation 92 % (95-98) L 05/01/17 04:55 Calcium 8.8 mg/dL (8.6-10.3) 05/11/17 03:45 Phosphorus 3.0 mg/dL (2.7-4.5) 04/27/17 03:49 Magnesium 2.1 mg/dL (1.6-2.6) 04/28/17 03:15 - VTE Documentation of Mechanical Device: Intermittent pneumatic compression device Consult Discharge Plan - Plan Referrals: Kannan Hurley DO [Primary Care Provider] - Juan Lake [Family Provider] -
[2017-05-11] MEDS: Isosorbide MONOnitrate (24 HR) 30 MG TAB.ER.24H PO SCH (08:39)
[2017-05-11] MEDS: Aspirin 81 MG TAB.CHEW PO SCH (08:41)
--- NOTE | 2017-05-11 08:42 | Internal Med Progress Note ---
Date of Encounter: 05/11/17 Time of Encounter: 08:39 - Subjective Interval history: Interval changes: 05/09/2017: Pt had HD today Feeling good today Breathing comfortably Spoke to ID about LYDIA (reconsult Cardiology tomorrow) 05/10/2017: Cardiology consulted for LYDIA INR still too high for Permacath placement Continue to allow INR to drift downward unless urgency to place cath. (Consider FFP if it's urgent to place the catheter) 05/11/2017: HD today Permacath to be placed (INR still 1.5) Still NPO for procedure No new complaints LYDIA done yesterday (appreciate Cardiology assistance) No valvular vegetations noted MSSA bacteremia with sepsis ID following ID believes bacteremia may have started from infection at wrist TTE done but no mention of vegetations. CTA findings concerning for possible septic emboli. LYDIA did not show valvular vegetations Nafcillin d/c'd due to worsening thrombocytopenia Now on Cefazolin 1000mg Q24hrs -treatment duration 4 weeks from negative blood culture 04/22/17 (Anticipated end date 05/21/17). From ID note: (culture reports) Sputum culture 04/27 (+) Staphylococcus aureus Blood culture peripheral 04/27 (-) no growth Sputum culture 04/24 (+) light colonies staph aureus Blood culture peripheral 04/22 (-) no growth Blood culture peripheral 04/20 (+) MSSA Wound culture Lt wrist 04/20 (+) MSSA Anaerobic culture Lt wrist 04/20 (-) no anaerobes were recovered (2) MRSA pneumonia Current Visit: Yes Status: Acute MSSA positive sputum cultures on 04/24/2017, 05/07/2017 Chest CTA demonstrated multifocal nodular consolidations. Clinically improved Abx as noted above (3) NSTEMI (non-ST elevated myocardial infarction) Patient has recent PCI Aspirin and Brilinta restarted No chest pain (4) Wrist infection Left wrist wound and skin infection which grew MSSA Abxas noted above (5) Thrombocytopenia Improving Dual antiplatelet agents restarted yesterday (6) NANCY (acute kidney injury) Permacath to be placed today Temp fem cath M-W-F HD He will need HD arranged in [place] (near Rehab ctr and home) - Constitutional Vitals: Temp Pulse Resp BP Pulse Ox 98.8 F 102 18 125/77 94 05/11/17 07:26 05/11/17 07:26 05/11/17 07:52 05/11/17 07:26 05/11/17 07:52 General appearance: Present: A&O X 3, pleasant, no acute distress, answers questions appropriately - Head Head exam: Present: atraumatic, normocephalic - Eye Eye exam: Present: PERRL, conjuntiva pink, sclera anicteric Pupils: Present: PERRL - Neck Neck exam general surgery: Present: supple, trachea midline. Absent: lymphadenopathy - Respiratory Respiratory exam: Present: CTAB. Absent: accessory muscle use, rales, rhonchi, wheezes - Cardiovascular Cardiovascular exam: Present: RRR, +S1, +S2. Absent: diastolic murmur, gallop, rubs, systolic murmur - GI/Abdominal GI/Abdominal exam: Present: normal bowel sounds, soft, no peritoneal signs. Absent: distended, firm, guarding, rebound, rigid, tenderness - Extremities Exam Extremities exam: Present: warm, radial pulses palpable and symmetrical. Absent : calf tenderness, cyanotic, pedal edema - Neurological Exam Neurological exam: Present: CN II-XII intact, oriented X3, no focal deficits. Absent: pronater drift, facial droop, speech deficit - Psychiatric Psychiatric exam: Present: flat affect - Skin Skin exam: Present: dry, intact Internal Medicine: Result - Labs CBC & Chem 7: 05/11/17 03:45 05/11/17 03:45 Labs: Short CBC 05/11/17 Range/Units 03:45 WBC 5.2 (4.3-11.1) K/mcL Hgb 9.0 L (12.9-16.9) g/dL Hct 27.3 L (37.5-50.1) % Plt Count 239 (140-400) K/mcL Neutrophils # 3.9 (1.6-8.9) K/mcL BMP 05/11/17 03:45 Sodium 135 L Potassium 4.3 Chloride 95 L Carbon Dioxide 23 BUN 81 H Creatinine 8.64 H Glucose 105 Calcium 8.8 - ABG Interpretation ABG results: ABG ABG pH 7.46 pH Units (7.32-7.45) H 05/01/17 04:55 ABG pCO2 37 mmHg (35-45) 05/01/17 04:55 ABG pO2 60 mmHg (85-104) L 05/01/17 04:55 ABG O2 Saturation 92 % (95-98) L 05/01/17 04:55 PT/INR, D-dimer PT 15.9 Seconds (9.4-12.1) H 05/11/17 03:45 D-Dimer 7347 ng/mLFEU (0-500) H 05/04/17 13:30 - VTE Documentation of Mechanical Device: Intermittent pneumatic compression device Consult Discharge Plan - Plan Referrals: Kannan Hurley DO [Primary Care Provider] - Juan Lake [Family Provider] -
--- NOTE | 2017-05-11 08:42 | Infectious Disease Progress No ---
Date of Encounter: 05/11/17 Time of Encounter: 08:41 - Assessment and Plan (1) Staphylococcus aureus bacteremia with sepsis Current Visit: Yes Status: Acute MSSA bacteremia may be secondary to left wrist infection versus MSSA pneumonia. All cultures grew same bacteria with similar sensitivities. - Patient currently on day 13 of cefazolin 1000 mg daily - Blood cultures no growth since 04/22/2017 - Vitals are stable Microbiology: Sputum culture 04/27 (+) Staphylococcus aureus Blood culture peripheral 04/27 (-) no growth Sputum culture 04/24 (+) light colonies staph aureus Blood culture peripheral 04/22 (-) no growth Blood culture peripheral 04/20 (+) MSSA Wound culture Lt wrist 04/20 (+) MSSA Anaerobic culture Lt wrist 04/20 (-) no anaerobes were recovered - Echocardiogram demonstrated LVEF 45-50%, mild global left ventricular systolic dysfunction, normal left ventricular atrial size, normal right atrial size, poorly visualized. No comment on valvular structure or negative for endocarditis. - LYDIA performed 05/10- No findings of vegetation 05/10: Plan: Antibiotics: Cefazolin 1000mg Q24hrs -treatment duration 4 weeks from negative blood culture 04/22/17 (Anticipated end date 05/21/17). (2) Methicillin susceptible Staphylococcus aureus pneumonia Current Visit: Yes Status: Acute MSSA positive sputum cultures on 04/24/2017, 05/07/2017 Risk Factors: MSSA-positive bacteremia and left wrist wound; possibly metastatic seeding from bacteremia. Patient also hospitalized and underwent cardiac catheterization with stent placement 3 days prior to presentation. - Chest x-ray demonstrates diffuse patchy infiltrates concerning for pneumonia - Chest CTA demonstrated multifocal nodular consolidations noted throughout both lung [place] which were concerning for pneumonia with small bilateral pleural effusions. 05/11: Clinically stable, patient denies any subjective fever, diaphoresis or chills. - Continue ceftezole 1000 mg IV every 24 hours for total treatment duration 4 weeks. Qualifiers: Laterality: bilateral Lung location: unspecified part of lung Qualified Code(s): J15.211 - Pneumonia due to Methicillin susceptible Staphylococcus aureus (3) Wound infection Current Visit: Yes Status: Acute Left wrist wound and skin infection which grew MSSA susceptible to current therapy. - Possible cause of bacteremia. Healing appropriately. 05/10: - No concerning findings on exam today. (4) Thrombocytopenia Current Visit: Yes Status: Acute Improving. - Management per primary team. Platelet count 208 today. (5) Decubitus ulcer of coccyx, stage 2 Current Visit: Yes Status: Acute Stable Decubitus coccyx ulcer - Continue turning while in bed - promote oral protein in diet - Continue RN protocol for treatment - Subjective Interval history: Mr. Jarvis has been seen and evaluated. Awaiting permacath placement for outpatient dialysis. No acute changes over night. Denies any fevers, chills, diaphoresis, productive cough, chest pain or worsening of SOB. He is looking forward to rehabilitation post discharge. He understands the importance of completion of antibiotics and has no further questions. Infect Dis PN-Objective Data - Labs CBC & Chem 7: 05/11/17 03:45 05/11/17 03:45 Labs: Laboratory Results - last 24 hr 05/07/17 05/10/17 05/10/17 05:09 07:49 09:01 WBC RBC Hgb Hct MCV MCH MCHC RDW Plt Count MPV Immature Gran % Seg Neutrophils % Lymphocytes % Monocytes % Eosinophils % Basophils % Neutrophils # Lymphocytes # Monocytes # Eosinophils # Basophils # PT 17.3 H INR 1.6 Sodium Potassium Chloride Carbon Dioxide BUN Creatinine Est GFR ( Amer) Est GFR (Non-Af Amer) BUN/Creatinine Ratio Glucose POC Glucose 120 H Calculated Osmolality Calcium Crossmatch See Detail 05/10/17 05/10/17 05/11/17 10:57 15:11 03:45 WBC 5.2 RBC 3.22 L Hgb 9.0 L Hct 27.3 L MCV 84.8 MCH 28.0 MCHC 33.0 RDW 12.9 Plt Count 239 MPV 9.1 L Immature Gran % 0.4 Seg Neutrophils % 75.5 Lymphocytes % 13.2 Monocytes % 7.8 Eosinophils % 2.7 Basophils % 0.4 Neutrophils # 3.9 Lymphocytes # 0.7 Monocytes # 0.4 Eosinophils # 0.1 Basophils # 0.0 PT INR Sodium Potassium Chloride Carbon Dioxide BUN Creatinine Est GFR ( Amer) Est GFR (Non-Af Amer) BUN/Creatinine Ratio Glucose POC Glucose 128 H 128 H Calculated Osmolality Calcium Crossmatch 05/11/17 05/11/17 03:45 03:45 WBC RBC Hgb Hct MCV MCH MCHC RDW Plt Count MPV Immature Gran % Seg Neutrophils % Lymphocytes % Monocytes % Eosinophils % Basophils % Neutrophils # Lymphocytes # Monocytes # Eosinophils # Basophils # PT 15.9 H INR 1.5 Sodium 135 L Potassium 4.3 Chloride 95 L Carbon Dioxide 23 BUN 81 H Creatinine 8.64 H Est GFR ( Amer) 8 L Est GFR (Non-Af Amer) 6 L BUN/Creatinine Ratio 9 Glucose 105 POC Glucose Calculated Osmolality 305 H Calcium 8.8 Crossmatch Cultures: Cultures 04/27/17 07:17 Blood Culture - Final Peripheral Venipuncture No growth. 04/27/17 07:17 Blood Culture - Final Peripheral Venipuncture No growth. 04/27/17 13:52 Sputum Culture - Final Sputum Staphylococcus aureus 04/22/17 12:35 Blood Culture - Final Peripheral Venipuncture No growth. 04/22/17 12:35 Blood Culture - Final Peripheral Venipuncture No growth. 04/24/17 11:15 Sputum Culture - Final Sputum Staphylococcus aureus 04/20/17 10:15 Anaerobic Culture - Final Left Wrist - Abscess No anaerobes were recovered. 04/20/17 03:48 Blood Culture - Final Peripheral Venipuncture Staphylococcus aureus 04/20/17 03:48 Blood Culture - Final Peripheral Venipuncture Staphylococcus aureus 04/20/17 10:15 Wound Culture - Final Left Wrist - Abscess Staphylococcus aureus Serology 05/03/17 04/27/17 04/20/17 Range/Units 06:54 16:25 10:55 Stl C. diff Tox B Gene Negative (Negative) A. baumannii (PCR) (Not Detect) Chlamy pneumoniae PCR Not Detected (Not Detect) Adenovirus (PCR) Not Detected (Not Detect) B. pertussis DNA (PCR) Not Detected (Not Detect) B.parapertussis DNA PCR Not Detected (Not Detect) Aixa albicans (PCR) (Not Detect) C. glabrata (PCR) (Not Detect) C. krusei (PCR) (Not Detect) C. parapsilosis (PCR) (Not Detect) C. tropicalis (PCR) (Not Detect) Coronavirus OC43 (PCR) Not Detected (Not Detect) Coronavirus HKU1 (PCR) Not Detected (Not Detect) Coronavirus 229E (PCR) Not Detected (Not Detect) Coronavirus NL63 (PCR) Not Detected (Not Detect) Enterobacteriac sp PCR (Not Detect) E. cloacae complex PCR (Not Detect) Enterococcus sp PCR (Not Detect) E. coli (PCR) (Not Detect) H. influenzae (PCR) (Not Detect) Hep Bs Antigen Nonreactive (Nonreactive) Hep Bs Antibody 5.77 mIU/mL Human Metapneumovir PCR Not Detected (Not Detect) Influenza A (H1) PCR Not Detected (Not Detect) Influ A (H1N1/09) PCR Not Detected (Not Detect) Influenza A (H3) PCR Not Detected (Not Detect) Influenza A Untype (PCR) Not Detected (Not Detect) Influenza Type B (PCR) Not Detected (Not Detect) Klebsiella oxytoca PCR (Not Detect) Klebsiella pneumoniae (Not Detect) List. monocytogenes PCR (Not Detect) M.pneumoniae DNA (PCR) Not Detected (Not Detect) N. meningitidis (PCR) (Not Detect) Parainfluenza 1 (PCR) Not Detected (Not Detect) Parainfluenza 2 (PCR) Not Detected (Not Detect) Parainfluenza 3 (PCR) Not Detected (Not Detect) Parainfluenza 4 (PCR) Not Detected (Not Detect) Proteus species (PCR) (Not Detect) RSV (PCR) Not Detected (Not Detect) Entero/Rhino (PCR) Not Detected (Not Detect) Serratia marcescens PCR (Not Detect) Staphylococcus sp PCR (Not Detect) Staph aureus (PCR) (Not Detect) mecA-Methicil Res Gene (Not Detect) Streptococcus sp PCR (Not Detect) Group A Strep DNA (Not Detect) Group B Strep (PCR) (Not Detect) Strep pneumoniae (PCR) (Not Detect) P. aeruginosa (PCR) (Not Detect) Mariam/B-Vanco Res Genes (Not Detect) KPC (blaKPC) Detect PCR (Not Detect) 04/20/17 Range/Units 03:48 Stl C. diff Tox B Gene (Negative) A. baumannii (PCR) Not Detected (Not Detect) Chlamy pneumoniae PCR (Not Detect) Adenovirus (PCR) (Not Detect) B. pertussis DNA (PCR) (Not Detect) B.parapertussis DNA PCR (Not Detect) Aixa albicans (PCR) Not Detected (Not Detect) C. glabrata (PCR) Not Detected (Not Detect) C. krusei (PCR) Not Detected (Not Detect) C. parapsilosis (PCR) Not Detected (Not Detect) C. tropicalis (PCR) Not Detected (Not Detect) Coronavirus OC43 (PCR) (Not Detect) Coronavirus HKU1 (PCR) (Not Detect) Coronavirus 229E (PCR) (Not Detect) Coronavirus NL63 (PCR) (Not Detect) Enterobacteriac sp PCR Not Detected (Not Detect) E. cloacae complex PCR Not Detected (Not Detect) Enterococcus sp PCR Not Detected (Not Detect) E. coli (PCR) Not Detected (Not Detect) H. influenzae (PCR) Not Detected (Not Detect) Hep Bs Antigen (Nonreactive) Hep Bs Antibody mIU/mL Human Metapneumovir PCR (Not Detect) Influenza A (H1) PCR (Not Detect) Influ A (H1N1/09) PCR (Not Detect) Influenza A (H3) PCR (Not Detect) Influenza A Untype (PCR) (Not Detect) Influenza Type B (PCR) (Not Detect) Klebsiella oxytoca PCR Not Detected (Not Detect) Klebsiella pneumoniae Not Detected (Not Detect) List. monocytogenes PCR Not Detected (Not Detect) M.pneumoniae DNA (PCR) (Not Detect) N. meningitidis (PCR) Not Detected (Not Detect) Parainfluenza 1 (PCR) (Not Detect) Parainfluenza 2 (PCR) (Not Detect) Parainfluenza 3 (PCR) (Not Detect) Parainfluenza 4 (PCR) (Not Detect) Proteus species (PCR) Not Detected (Not Detect) RSV (PCR) (Not Detect) Entero/Rhino (PCR) (Not Detect) Serratia marcescens PCR Not Detected (Not Detect) Staphylococcus sp PCR DETECTED A (Not Detect) Staph aureus (PCR) DETECTED A (Not Detect) mecA-Methicil Res Gene Not Detected (Not Detect) Streptococcus sp PCR Not Detected (Not Detect) Group A Strep DNA Not Detected (Not Detect) Group B Strep (PCR) Not Detected (Not Detect) Strep pneumoniae (PCR) Not Detected (Not Detect) P. aeruginosa (PCR) Not Detected (Not Detect) Mariam/B-Vanco Res Genes Not Detected (Not Detect) KPC (blaKPC) Detect PCR Not Detected (Not Detect) Exam - Constitutional Vitals: Temp Pulse Resp BP Pulse Ox 98.8 F 102 18 125/77 94 05/11/17 07:26 05/11/17 07:26 05/11/17 07:52 05/11/17 07:26 05/11/17 07:52 - Head Head exam: Present: atraumatic, normocephalic - ENT ENT exam: Present: mucous membranes moist - Neck Neck exam: Present: normal inspection - Respiratory Respiratory exam: Present: CTAB - Cardiovascular Cardiovascular exam: Present: RRR, +S1, +S2 - GI/Abdominal GI/Abdominal exam: Present: normal bowel sounds - Extremities Exam Extremities exam: Present: normal inspection - VTE Documentation of Mechanical Device: Intermittent pneumatic compression device Consult Discharge Plan - Plan Referrals: Kannan Hurley DO [Primary Care Provider] - 05/15/17 2:00 pm Juan Lake [Family Provider] - - Attending Attestation I examined this patient and my medical decision-making was reviewed with the Resident Physician. I agree with the documented findings, disposition and treatment plan as described except to the extent set forth below. LYDIA negative dialysis cath being placed unable to treat with cefazolin post dialysis (d/w Dr. Monge) will continue cefazolin 1 gram daily for 4 weeks total
[2017-05-11] MEDS ORDERED: Albuterol 2.5 MG/3 ML NEBULIZER IH PRN (09:24)
[2017-05-11] MEDS: Insulin LISPRO 300 UNITS/3 ML VIAL SQ SCH ×4 (11:41→20:41)
[2017-05-11] MEDS: *HR* Ticagrelor 90 MG TABLET PO SCH ×2 (11:46→20:49)
[2017-05-11] MEDS ORDERED: Heparin 1,000 UNITS/500 mL 500 ML ONE (13:42)
[2017-05-11] MEDS ORDERED: 0.9 % Sodium Chloride 500 ML ONE (14:04)
[2017-05-11] MEDS ORDERED: *HR* Heparin 5,000 UNIT/ML VIAL ONE (14:19)
[2017-05-11] MEDS: amLODIPine 5 MG TABLET PO SCH (14:58)
[2017-05-11] MEDS: ceFAZolin 1,000 MG in Water for inj. (sterile) 20 ML 10 ML IVP SCH (18:06)
[2017-05-11] MEDS: Ondansetron 4 MG/2 ML VIAL IVP PRN (20:49)
[2017-05-12 04:26] LABS: Basophils % 0.7 %; Eosinophils # 0.2 K/mcL (0.0-0.6); Eosinophils % 3.5 %; Hemoglobin 9.3 g/dL (12.9-16.9); Immature Granulocytes % 0.6 % (0-4); Lymphocytes # 0.7 K/mcL (0.6-4.6); Lymphocytes % 13.4 %; Mean Corpuscular HGB Conc 32.1 g/dL (31.6-35.5); Mean Corpuscular Hemoglobin 27.4 pg (28.0-33.3); Mean Corpuscular Volume 85.5 fL (83.0-100.0); Mean Platelet Volume 8.7 fL (9.4-12.4); Monocytes # 0.6 K/mcL (0.0-1.3); Neutrophils # 3.8 K/mcL (1.6-8.9); Platelet Count 264 K/mcL (140-400); Red Blood Count 3.39 M/mcL (4.19-5.50); Red Cell Distribution Width 13.1 % (11.5-14.5); Segmented Neutrophils % 70.8 %
[2017-05-12 04:47] LABS: Potassium 4.6 mEq/L (3.5-5.1)
[2017-05-12] MEDS: *HR* Ticagrelor 90 MG TABLET PO SCH ×2 (09:33→22:56)
[2017-05-12] MEDS: Isosorbide MONOnitrate (24 HR) 30 MG TAB.ER.24H PO SCH (09:34)
[2017-05-12] MEDS: Insulin LISPRO 300 UNITS/3 ML VIAL SQ SCH ×4 (09:34→22:30)
[2017-05-12] MEDS: Aspirin 81 MG TAB.CHEW PO SCH (09:34)
[2017-05-12] MEDS: amLODIPine 5 MG TABLET PO SCH (09:34)
--- NOTE | 2017-05-12 11:31 | Nephrology Progress Note ---
Date of Encounter: 05/12/17 Time of Encounter: 11:29 - Assessment and Plan (1) Acute on chronic renal failure Current Visit: Yes Status: Acute Dialysis dependent acute kidney injury superimposed on chronic kidney disease. He has a tunneled dialysis catheter and he has arrangements for outpatient dialysis. He does not need dialysis today I plan on dialyzing him Sunday if he is still in the hospital. Qualifiers: Acute renal failure type: unspecified Chronic kidney disease stage: unspecified stage Qualified Code(s): N17.9 - Acute kidney failure, unspecified ; N18.9 - Chronic kidney disease, unspecified; N18.9 - Chronic kidney disease, unspecified Subjective Principal diagnosis: Sepsis/Septic Shock Interval history: Patient seen and evaluated his is at his bedside. He states that he get a little lightheaded whenever he was out of bed with physical therapy. Otherwise he has no new complaints. His right femoral vein non-tunneled hemodialysis catheter has been removed. Objective - Vital Signs Vital signs: Vital Signs Temp Pulse Resp BP Pulse Ox 05/12/17 08:34 98.2 F 87 16 131/82 96 05/12/17 04:16 98.6 F 78 16 132/78 95 05/12/17 00:20 99.5 F 90 16 111/71 95 05/11/17 19:54 98.6 F 84 16 116/70 94 05/11/17 15:42 98.1 F 96 20 134/84 93 05/11/17 15:00 99.5 F 88 20 143/83 95 05/11/17 14:15 85 21 118/76 98 05/11/17 12:45 97.6 F 20 146/89 05/11/17 12:35 143/81 05/11/17 12:20 133/86 05/11/17 12:05 127/77 05/11/17 11:50 146/91 05/11/17 11:35 154/82 Intake and Output 05/11/17 05/12/17 05/12/17 23:59 07:59 15:59 Intake Total 0 / 0 0 / 0 120 / 120 Output Total 0 / 0 Balance 0 / 0 0 / 0 120 / 120 Intake: Oral 0 / 0 0 / 0 120 / 120 Output: Urine 0 / 0 Other: Meal Breakfast Percent of Meal Consumed 90% Stool Size Moderate Stool Consistency loose liquid Stool Color Brown # Bowel Movements 1 Weight 81.511 kg Blood Glucose* 109 144 Patient Weight 05/12/17 23:59 Weight 81.511 kg - General Appearance General appearance: Present: well-developed, well-nourished, chronically ill EENT: Present: ATNC Neck: Present: supple Cardiology: Present: regular rate Dialysis Vascular Access: Venous Catheter (Right IJ tunneled hemodialysis catheter) Neurologic: Present: alert and oriented x3 Psychiatric: Present: mood/affect appropriate - Lab 05/12/17 04:00 05/12/17 04:00 Most recent lab results ABG pH 7.46 pH Units (7.32-7.45) H 05/01/17 04:55 ABG pCO2 37 mmHg (35-45) 05/01/17 04:55 ABG pO2 60 mmHg (85-104) L 05/01/17 04:55 ABG HCO3 26 mEq/L (21-27) 05/01/17 04:55 ABG O2 Saturation 92 % (95-98) L 05/01/17 04:55 Calcium 9.0 mg/dL (8.6-10.3) 05/12/17 04:00 Phosphorus 3.0 mg/dL (2.7-4.5) 04/27/17 03:49 Magnesium 2.1 mg/dL (1.6-2.6) 04/28/17 03:15 - VTE Documentation of Mechanical Device: Intermittent pneumatic compression device Consult Discharge Plan - Plan Referrals: Kannan Hurley DO [Primary Care Provider] - 05/15/17 2:00 pm Juan Lake [Family Provider] -
[2017-05-12] MEDS: ceFAZolin 1,000 MG in Water for inj. (sterile) 20 ML 10 ML IVP SCH (16:55)
--- NOTE | 2017-05-12 21:17 | Internal Med Progress Note ---
Date of Encounter: 05/12/17 Time of Encounter: 15:34 - Subjective Interval history: Interval changes: 05/09/2017: Pt had HD today Feeling good today Breathing comfortably Spoke to ID about LYDIA (reconsult Cardiology tomorrow) 05/10/2017: Cardiology consulted for LYDAI INR still too high for Permacath placement Continue to allow INR to drift downward unless urgency to place cath. (Consider FFP if it's urgent to place the catheter) 05/11/2017: HD today Permacath to be placed (INR still 1.5) Still NPO for procedure No new complaints LYDIA done yesterday (appreciate Cardiology assistance) No valvular vegetations noted 05/12/2017 No new complaints Essntially ready to be discharged medically Checking to see if HD chair time scheduled in [place], [place] He's precertified at the rehab MSSA bacteremia with sepsis ID following ID believes bacteremia may have started from infection at wrist TTE done but no mention of vegetations. CTA findings concerning for possible septic emboli. LYDIA did not show valvular vegetations Nafcillin d/c'd due to worsening thrombocytopenia Now on Cefazolin 1000mg Q24hrs -treatment duration 4 weeks from negative blood culture 04/22/17 (Anticipated end date 05/21/17). From ID note: (culture reports) Sputum culture 04/27 (+) Staphylococcus aureus Blood culture peripheral 04/27 (-) no growth Sputum culture 04/24 (+) light colonies staph aureus Blood culture peripheral 04/22 (-) no growth Blood culture peripheral 04/20 (+) MSSA Wound culture Lt wrist 04/20 (+) MSSA Anaerobic culture Lt wrist 04/20 (-) no anaerobes were recovered (2) MRSA pneumonia Current Visit: Yes Status: Acute MSSA positive sputum cultures on 04/24/2017, 05/07/2017 Chest CTA demonstrated multifocal nodular consolidations. Clinically improved Abx as noted above (3) NSTEMI (non-ST elevated myocardial infarction) Patient has recent PCI Aspirin and Brilinta restarted No chest pain (4) Wrist infection Left wrist wound and skin infection which grew MSSA Abx as noted above (5) Thrombocytopenia Improving Dual antiplatelet agents restarted (6) NANCY (acute kidney injury) Permacath to be placed today Temp fem cath M-W- HD Checking on HD arrangements in [place] (near Rehab ctr and home) - Constitutional Vitals: Temp Pulse Resp BP Pulse Ox 98.7 F 72 16 118/72 96 05/12/17 19:37 05/12/17 19:37 05/12/17 19:37 05/12/17 19:37 05/12/17 19:37 General appearance: Present: A&O X 3, pleasant, no acute distress, answers questions appropriately - Head Head exam: Present: atraumatic, normocephalic - Eye Eye exam: Present: PERRL, conjuntiva pink, sclera anicteric Pupils: Present: PERRL - Neck Neck exam general surgery: Present: supple, trachea midline. Absent: lymphadenopathy - Respiratory Respiratory exam: Present: CTAB. Absent: accessory muscle use, rales, rhonchi, wheezes - Cardiovascular Cardiovascular exam: Present: RRR, +S1, +S2. Absent: diastolic murmur, gallop, rubs, systolic murmur - GI/Abdominal GI/Abdominal exam: Present: normal bowel sounds, soft, no peritoneal signs. Absent: distended, tenderness - Extremities Exam Extremities exam: Present: warm, radial pulses palpable and symmetrical. Absent : calf tenderness, cyanotic, pedal edema - Neurological Exam Neurological exam: Present: CN II-XII intact, oriented X3, no focal deficits. Absent: pronater drift, facial droop, speech deficit - Psychiatric Psychiatric exam: Present: normal affect, normal mood - Skin Skin exam: Present: dry, intact Internal Medicine: Result - Labs CBC & Chem 7: 05/12/17 04:00 05/12/17 04:00 Labs: Short CBC 05/12/17 Range/Units 04:00 WBC 5.4 (4.3-11.1) K/mcL Hgb 9.3 L (12.9-16.9) g/dL Hct 29.0 L (37.5-50.1) % Plt Count 264 (140-400) K/mcL Neutrophils # 3.8 (1.6-8.9) K/mcL BMP 05/12/17 04:00 Sodium 134 L Potassium 4.6 Chloride 96 L Carbon Dioxide 25 BUN 70 H Creatinine 7.29 H Glucose 104 Calcium 9.0 - ABG Interpretation ABG results: ABG ABG pH 7.46 pH Units (7.32-7.45) H 05/01/17 04:55 ABG pCO2 37 mmHg (35-45) 05/01/17 04:55 ABG pO2 60 mmHg (85-104) L 05/01/17 04:55 ABG O2 Saturation 92 % (95-98) L 05/01/17 04:55 PT/INR, D-dimer PT 15.9 Seconds (9.4-12.1) H 05/11/17 03:45 D-Dimer 7347 ng/mLFEU (0-500) H 05/04/17 13:30 - VTE Documentation of Mechanical Device: Intermittent pneumatic compression device Consult Discharge Plan - Plan Referrals: Kannan Hurley DO [Primary Care Provider] - 05/15/17 2:00 pm
[2017-05-13 07:16] LABS: Basophils % 0.6 %; Eosinophils # 0.3 K/mcL (0.0-0.6); Hematocrit 26.2 % (37.5-50.1); Hemoglobin 8.8 g/dL (12.9-16.9); Immature Granulocytes % 0.4 % (0-4); Lymphocytes # 0.6 K/mcL (0.6-4.6); Mean Corpuscular HGB Conc 33.6 g/dL (31.6-35.5); Mean Corpuscular Hemoglobin 28.6 pg (28.0-33.3); Mean Corpuscular Volume 85.1 fL (83.0-100.0); Mean Platelet Volume 9.1 fL (9.4-12.4); Monocytes # 0.5 K/mcL (0.0-1.3); Monocytes % 8.8 %; Neutrophils # 3.9 K/mcL (1.6-8.9); Platelet Count 225 K/mcL (140-400); Red Blood Count 3.08 M/mcL (4.19-5.50); Segmented Neutrophils % 73.2 %
[2017-05-13 07:19] LABS: Potassium 4.6 mEq/L (3.5-5.1)
[2017-05-13] MEDS: Isosorbide MONOnitrate (24 HR) 30 MG TAB.ER.24H PO SCH (08:03)
[2017-05-13] MEDS: Insulin LISPRO 300 UNITS/3 ML VIAL SQ SCH ×4 (08:03→21:36)
[2017-05-13] MEDS: Aspirin 81 MG TAB.CHEW PO SCH (08:03)
[2017-05-13] MEDS: *HR* Ticagrelor 90 MG TABLET PO SCH ×2 (08:03→21:43)
[2017-05-13] MEDS: amLODIPine 5 MG TABLET PO SCH (08:03)
--- NOTE | 2017-05-13 10:19 | Nephrology Progress Note ---
Date of Encounter: 05/13/17 Time of Encounter: 10:17 - Assessment and Plan (1) Acute on chronic renal failure Current Visit: Yes Status: Acute Dialysis dependent acute kidney injury superimposed on chronic kidney disease. He has a tunneled dialysis catheter and he is awaiting arrangement for outpatient dialysis. He does not need dialysis today I plan on dialyzing him Sunday. Qualifiers: Acute renal failure type: unspecified Chronic kidney disease stage: unspecified stage Qualified Code(s): N17.9 - Acute kidney failure, unspecified ; N18.9 - Chronic kidney disease, unspecified; N18.9 - Chronic kidney disease, unspecified Subjective Principal diagnosis: Sepsis/Septic Shock Interval history: Patient seen and evaluated his is at his bedside. He has no new complaints. Objective - Vital Signs Vital signs: Vital Signs Temp Pulse Resp BP Pulse Ox 05/13/17 07:46 98.8 F 82 19 137/83 97 05/13/17 05:10 98.1 F 80 16 145/73 95 05/13/17 00:24 98.5 F 80 18 122/68 97 05/12/17 19:37 98.7 F 72 16 118/72 96 05/12/17 15:58 98.8 F 81 16 93 05/12/17 11:58 104/63 05/12/17 11:37 98.2 F 77 16 95/55 95 Intake and Output 05/12/17 05/13/17 05/13/17 23:59 07:59 15:59 Intake Total 120 / 120 Output Total 0 / 0 Balance 120 / 120 Intake: Oral 120 / 120 Output: Urine 0 / 0 Other: Weight 85.1 kg Blood Glucose* 97 107 Patient Weight 05/13/17 23:59 Weight 85.1 kg - General Appearance General appearance: Present: well-developed, well-nourished EENT: Present: ATNC Cardiology: Present: regular rate Integumentary: Present: warm and dry Neurologic: Present: alert and oriented x3 Psychiatric: Present: mood/affect appropriate - Lab 05/13/17 06:50 05/13/17 06:50 Most recent lab results ABG pH 7.46 pH Units (7.32-7.45) H 05/01/17 04:55 ABG pCO2 37 mmHg (35-45) 05/01/17 04:55 ABG pO2 60 mmHg (85-104) L 05/01/17 04:55 ABG HCO3 26 mEq/L (21-27) 05/01/17 04:55 ABG O2 Saturation 92 % (95-98) L 05/01/17 04:55 Calcium 9.0 mg/dL (8.6-10.3) 05/13/17 06:50 Phosphorus 3.0 mg/dL (2.7-4.5) 04/27/17 03:49 Magnesium 2.1 mg/dL (1.6-2.6) 04/28/17 03:15 - VTE Documentation of Mechanical Device: Intermittent pneumatic compression device Consult Discharge Plan - Plan Referrals: Kannan Hurley DO [Primary Care Provider] - 05/15/17 2:00 pm
--- NOTE | 2017-05-13 14:45 | Internal Med Progress Note ---
Date of Encounter: 05/13/17 Time of Encounter: 14:34 - Subjective Interval history: Interval changes: 05/09/2017: Pt had HD today Feeling good today Breathing comfortably Spoke to ID about LYDIA (reconsult Cardiology tomorrow) 05/10/2017: Cardiology consulted for LYDIA INR still too high for Permacath placement Continue to allow INR to drift downward unless urgency to place cath. (Consider FFP if it's urgent to place the catheter) 05/11/2017: HD today Permacath to be placed (INR still 1.5) Still NPO for procedure No new complaints LYDIA done yesterday (appreciate Cardiology assistance) No valvular vegetations noted 05/12/2017 No new complaints Essntially ready to be discharged medically Checking to see if HD chair time scheduled in [place], [place] He's precertified at the rehab 05/13/2017 No new changes Ready for discharge HD tomorrow then d/c MSSA bacteremia with sepsis ID following ID believes bacteremia may have started from infection at wrist TTE done but no mention of vegetations. CTA findings concerning for possible septic emboli. LYDIA did not show valvular vegetations Nafcillin d/c'd due to worsening thrombocytopenia Now on Cefazolin 1000mg Q24hrs -treatment duration 4 weeks from negative blood culture 04/22/17 (Anticipated end date 05/21/17). From ID note: (culture reports) Sputum culture 04/27 (+) Staphylococcus aureus Blood culture peripheral 04/27 (-) no growth Sputum culture 04/24 (+) light colonies staph aureus Blood culture peripheral 04/22 (-) no growth Blood culture peripheral 04/20 (+) MSSA Wound culture Lt wrist 04/20 (+) MSSA Anaerobic culture Lt wrist 04/20 (-) no anaerobes were recovered (2) MRSA pneumonia Current Visit: Yes Status: Acute MSSA positive sputum cultures on 04/24/2017, 05/07/2017 Chest CTA demonstrated multifocal nodular consolidations. Clinically improved Abx as noted above (3) NSTEMI (non-ST elevated myocardial infarction) Patient has recent PCI Aspirin and Brilinta restarted No chest pain (4) Wrist infection Left wrist wound and skin infection which grew MSSA Abx as noted above (5) Thrombocytopenia Improving Dual antiplatelet agents restarted (6) NANCY (acute kidney injury) Permacath to be placed today Temp fem cath M-W-F HD Checking on HD arrangements in [place] (near Rehab ctr and home) - Constitutional Vitals: Temp Pulse Resp BP Pulse Ox 98.3 F 78 20 112/68 96 05/13/17 11:23 05/13/17 11:23 05/13/17 11:23 05/13/17 11:23 05/13/17 11:23 General appearance: Present: cooperative, A&O X 3, pleasant, no acute distress, answers questions appropriately - Head Head exam: Present: atraumatic, normocephalic - Eye Eye exam: Present: EOMI, PERRL, conjuntiva pink, sclera anicteric Pupils: Present: PERRL - Neck Neck exam general surgery: Present: supple, trachea midline. Absent: lymphadenopathy - Respiratory Respiratory exam: Present: CTAB. Absent: accessory muscle use, rales, rhonchi, wheezes - Cardiovascular Cardiovascular exam: Present: RRR, +S1, +S2. Absent: diastolic murmur, gallop, rubs, systolic murmur - GI/Abdominal GI/Abdominal exam: Present: normal bowel sounds, soft, no peritoneal signs. Absent: distended, tenderness - Extremities Exam Extremities exam: Present: calf tenderness, cyanotic, warm - Neurological Exam Neurological exam: Present: CN II-XII intact, oriented X3, no focal deficits. Absent: pronater drift, facial droop, speech deficit - Psychiatric Psychiatric exam: Present: normal affect, normal mood - Skin Skin exam: Present: dry, intact Internal Medicine: Result - Labs CBC & Chem 7: 05/13/17 06:50 05/13/17 06:50 Labs: Short CBC 05/13/17 Range/Units 06:50 WBC 5.4 (4.3-11.1) K/mcL Hgb 8.8 L (12.9-16.9) g/dL Hct 26.2 L (37.5-50.1) % Plt Count 225 (140-400) K/mcL Neutrophils # 3.9 (1.6-8.9) K/mcL BMP 05/13/17 06:50 Sodium 132 L Potassium 4.6 Chloride 96 L Carbon Dioxide 21 L BUN 92 H Creatinine 9.49 H Glucose 99 Calcium 9.0 - ABG Interpretation ABG results: ABG ABG pH 7.46 pH Units (7.32-7.45) H 05/01/17 04:55 ABG pCO2 37 mmHg (35-45) 05/01/17 04:55 ABG pO2 60 mmHg (85-104) L 05/01/17 04:55 ABG O2 Saturation 92 % (95-98) L 05/01/17 04:55 PT/INR, D-dimer PT 15.9 Seconds (9.4-12.1) H 05/11/17 03:45 D-Dimer 7347 ng/mLFEU (0-500) H 05/04/17 13:30 - VTE Documentation of Mechanical Device: Intermittent pneumatic compression device Consult Discharge Plan - Plan Referrals: Kannan Hurley DO [Primary Care Provider] - 05/15/17 2:00 pm
[2017-05-13] MEDS: ceFAZolin 1,000 MG in Water for inj. (sterile) 20 ML 10 ML IVP SCH (17:18)
[2017-05-14 05:17] LABS: Basophils % 0.4 %; Eosinophils # 0.4 K/mcL (0.0-0.6); Eosinophils % 8.7 %; Hematocrit 24.7 % (37.5-50.1); Hemoglobin 8.2 g/dL (12.9-16.9); Immature Granulocytes % 0.4 % (0-4); Lymphocytes # 0.5 K/mcL (0.6-4.6); Lymphocytes % 10.9 %; Mean Corpuscular HGB Conc 33.2 g/dL (31.6-35.5); Mean Corpuscular Hemoglobin 28.2 pg (28.0-33.3); Mean Corpuscular Volume 84.9 fL (83.0-100.0); Mean Platelet Volume 9.2 fL (9.4-12.4); Monocytes # 0.4 K/mcL (0.0-1.3); Monocytes % 8.9 %; Neutrophils # 3.3 K/mcL (1.6-8.9); Platelet Count 220 K/mcL (140-400); Red Blood Count 2.91 M/mcL (4.19-5.50); Red Cell Distribution Width 12.9 % (11.5-14.5); Segmented Neutrophils % 70.7 %
[2017-05-14 05:27] LABS: Calcium 8.9 mg/dL (8.6-10.3); Potassium 4.7 mEq/L (3.5-5.1)
[2017-05-14] MEDS ORDERED: 0.9 % Sodium Chloride 2,000 ML ONE (07:25)
[2017-05-14] MEDS ORDERED: 0.9 % Sodium Chloride 250 ML IVC PRN (07:28)
[2017-05-14] MEDS ORDERED: *HR* Heparin 10,000 UNIT/10 ML VIAL IV PRN (07:28)
[2017-05-14] MEDS ORDERED: 0.9 % Sodium Chloride 1,000 ML PRIME SCH (07:30)
[2017-05-14] MEDS: Insulin LISPRO 300 UNITS/3 ML VIAL SQ SCH ×3 (08:41→18:04)
--- NOTE | 2017-05-14 10:08 | Infectious Disease Progress No ---
Date of Encounter: 05/14/17 Time of Encounter: 08:20 - Assessment and Plan (1) Staphylococcus aureus bacteremia with sepsis Current Visit: Yes Status: Acute MSSA bacteremia may be secondary to left wrist infection versus MSSA pneumonia. All cultures grew same bacteria with similar sensitivities. - Patient currently on day 13 of cefazolin 1000 mg daily - Blood cultures no growth since 04/22/2017 - Vitals are stable Microbiology: Sputum culture 04/27 (+) Staphylococcus aureus Blood culture peripheral 04/27 (-) no growth Sputum culture 04/24 (+) light colonies staph aureus Blood culture peripheral 04/22 (-) no growth Blood culture peripheral 04/20 (+) MSSA Wound culture Lt wrist 04/20 (+) MSSA Anaerobic culture Lt wrist 04/20 (-) no anaerobes were recovered - Echocardiogram demonstrated LVEF 45-50%, mild global left ventricular systolic dysfunction, normal left ventricular atrial size, normal right atrial size, poorly visualized. No comment on valvular structure or negative for endocarditis. - LYDIA performed 05/10- No findings of vegetation 05/14 : No acute changes. Patient continues to require dialysis, no new symptoms. Continue current antibiotic coverage. Plan: Antibiotics: Cefazolin 1000mg Q24hrs -treatment duration 4 weeks from negative blood culture 04/22/17 (Anticipated end date 05/21/17). (2) Methicillin susceptible Staphylococcus aureus pneumonia Current Visit: Yes Status: Acute MSSA positive sputum cultures on 04/24/2017, 05/07/2017 Risk Factors: MSSA-positive bacteremia and left wrist wound; possibly metastatic seeding from bacteremia. Patient also hospitalized and underwent cardiac catheterization with stent placement 3 days prior to presentation. past imaging: - Chest x-ray demonstrates diffuse patchy infiltrates concerning for pneumonia - Chest CTA demonstrated multifocal nodular consolidations noted throughout both lung [place] which were concerning for pneumonia with small bilateral pleural effusions. 05/14: Clinically stable, patient denies any subjective fever, diaphoresis or chills. - Continue ceftezole 1000 mg IV every 24 hours for total treatment duration 4 weeks. Qualifiers: Laterality: bilateral Lung location: unspecified part of lung Qualified Code(s): J15.211 - Pneumonia due to Methicillin susceptible Staphylococcus aureus (3) Wound infection Current Visit: Yes Status: Acute Left wrist wound and skin infection which grew MSSA susceptible to current therapy. - healed. (4) Thrombocytopenia Current Visit: Yes Status: Acute Improving. - Management per primary team. Platelet count 220 today. (5) Decubitus ulcer of coccyx, stage 2 Current Visit: Yes Status: Acute Stable Decubitus coccyx ulcer - Continue turning while in bed - promote oral protein in diet - Continue RN protocol for treatment (6) Anemia Current Visit: Yes Status: Acute Hemoglobin steadily declining since admission. - BUN elevated at 111 today - Patient denies noticeable melena or hematochezia - Consider GI loss. Qualifiers: Anemia type: unspecified type Qualified Code(s): D64.9 - Anemia, unspecified - Subjective Interval history: Mr. Jarvis has been seen and evaluated. Denies any fevers, chills, diaphoresis, chest pain, chest pressure, palpitations, shortness of breath, nausea vomiting diarrhea constipation. He does mention he had some brownish sputum production with occasional cough but otherwise feels quite well. He denies any blood in his stool, dark tarry stool or any other concerning symptoms. He denies any blood in his sputum. He states that he had a colonoscopy in the past but does not recall how long ago and says that it was up [place]. Infect Dis PN-Objective Data - Labs CBC & Chem 7: 05/14/17 04:15 05/14/17 04:15 Labs: Laboratory Results - last 24 hr 05/12/17 05/12/17 05/13/17 15:50 20:46 07:51 WBC RBC Hgb Hct MCV MCH MCHC RDW Plt Count MPV Immature Gran % Seg Neutrophils % Lymphocytes % Monocytes % Eosinophils % Basophils % Neutrophils # Lymphocytes # Monocytes # Eosinophils # Basophils # Sodium Potassium Chloride Carbon Dioxide BUN Creatinine Est GFR ( Amer) Est GFR (Non-Af Amer) BUN/Creatinine Ratio Glucose POC Glucose 173 H 97 H 107 H Calculated Osmolality Calcium 05/13/17 05/13/17 05/13/17 11:31 16:03 20:35 WBC RBC Hgb Hct MCV MCH MCHC RDW Plt Count MPV Immature Gran % Seg Neutrophils % Lymphocytes % Monocytes % Eosinophils % Basophils % Neutrophils # Lymphocytes # Monocytes # Eosinophils # Basophils # Sodium Potassium Chloride Carbon Dioxide BUN Creatinine Est GFR ( Amer) Est GFR (Non-Af Amer) BUN/Creatinine Ratio Glucose POC Glucose 226 H 92 H 108 H Calculated Osmolality Calcium 05/14/17 05/14/17 04:15 04:15 WBC 4.7 RBC 2.91 L Hgb 8.2 L Hct 24.7 L MCV 84.9 MCH 28.2 MCHC 33.2 RDW 12.9 Plt Count 220 MPV 9.2 L Immature Gran % 0.4 Seg Neutrophils % 70.7 Lymphocytes % 10.9 Monocytes % 8.9 Eosinophils % 8.7 Basophils % 0.4 Neutrophils # 3.3 Lymphocytes # 0.5 L Monocytes # 0.4 Eosinophils # 0.4 Basophils # 0.0 Sodium 132 L Potassium 4.7 Chloride 94 L Carbon Dioxide 20 L BUN 111 H Creatinine 10.94 H Est GFR ( Amer) 6 L Est GFR (Non-Af Amer) 5 L BUN/Creatinine Ratio 10 Glucose 90 POC Glucose Calculated Osmolality 309 H Calcium 8.9 Cultures: Cultures 04/27/17 07:17 Blood Culture - Final Peripheral Venipuncture No growth. 04/27/17 07:17 Blood Culture - Final Peripheral Venipuncture No growth. 04/27/17 13:52 Sputum Culture - Final Sputum Staphylococcus aureus 04/22/17 12:35 Blood Culture - Final Peripheral Venipuncture No growth. 04/22/17 12:35 Blood Culture - Final Peripheral Venipuncture No growth. 04/24/17 11:15 Sputum Culture - Final Sputum Staphylococcus aureus 04/20/17 10:15 Anaerobic Culture - Final Left Wrist - Abscess No anaerobes were recovered. 04/20/17 03:48 Blood Culture - Final Peripheral Venipuncture Staphylococcus aureus 04/20/17 03:48 Blood Culture - Final Peripheral Venipuncture Staphylococcus aureus 04/20/17 10:15 Wound Culture - Final Left Wrist - Abscess Staphylococcus aureus Serology 05/03/17 04/27/17 04/20/17 Range/Units 06:54 16:25 10:55 Stl C. diff Tox B Gene Negative (Negative) A. baumannii (PCR) (Not Detect) Chlamy pneumoniae PCR Not Detected (Not Detect) Adenovirus (PCR) Not Detected (Not Detect) B. pertussis DNA (PCR) Not Detected (Not Detect) B.parapertussis DNA PCR Not Detected (Not Detect) Aixa albicans (PCR) (Not Detect) C. glabrata (PCR) (Not Detect) C. krusei (PCR) (Not Detect) C. parapsilosis (PCR) (Not Detect) C. tropicalis (PCR) (Not Detect) Coronavirus OC43 (PCR) Not Detected (Not Detect) Coronavirus HKU1 (PCR) Not Detected (Not Detect) Coronavirus 229E (PCR) Not Detected (Not Detect) Coronavirus NL63 (PCR) Not Detected (Not Detect) Enterobacteriac sp PCR (Not Detect) E. cloacae complex PCR (Not Detect) Enterococcus sp PCR (Not Detect) E. coli (PCR) (Not Detect) H. influenzae (PCR) (Not Detect) Hep Bs Antigen Nonreactive (Nonreactive) Hep Bs Antibody 5.77 mIU/mL Human Metapneumovir PCR Not Detected (Not Detect) Influenza A (H1) PCR Not Detected (Not Detect) Influ A (H1N1/09) PCR Not Detected (Not Detect) Influenza A (H3) PCR Not Detected (Not Detect) Influenza A Untype (PCR) Not Detected (Not Detect) Influenza Type B (PCR) Not Detected (Not Detect) Klebsiella oxytoca PCR (Not Detect) Klebsiella pneumoniae (Not Detect) List. monocytogenes PCR (Not Detect) M.pneumoniae DNA (PCR) Not Detected (Not Detect) N. meningitidis (PCR) (Not Detect) Parainfluenza 1 (PCR) Not Detected (Not Detect) Parainfluenza 2 (PCR) Not Detected (Not Detect) Parainfluenza 3 (PCR) Not Detected (Not Detect) Parainfluenza 4 (PCR) Not Detected (Not Detect) Proteus species (PCR) (Not Detect) RSV (PCR) Not Detected (Not Detect) Entero/Rhino (PCR) Not Detected (Not Detect) Serratia marcescens PCR (Not Detect) Staphylococcus sp PCR (Not Detect) Staph aureus (PCR) (Not Detect) mecA-Methicil Res Gene (Not Detect) Streptococcus sp PCR (Not Detect) Group A Strep DNA (Not Detect) Group B Strep (PCR) (Not Detect) Strep pneumoniae (PCR) (Not Detect) P. aeruginosa (PCR) (Not Detect) Mariam/B-Vanco Res Genes (Not Detect) KPC (blaKPC) Detect PCR (Not Detect) 04/20/17 Range/Units 03:48 Stl C. diff Tox B Gene (Negative) A. baumannii (PCR) Not Detected (Not Detect) Chlamy pneumoniae PCR (Not Detect) Adenovirus (PCR) (Not Detect) B. pertussis DNA (PCR) (Not Detect) B.parapertussis DNA PCR (Not Detect) Aixa albicans (PCR) Not Detected (Not Detect) C. glabrata (PCR) Not Detected (Not Detect) C. krusei (PCR) Not Detected (Not Detect) C. parapsilosis (PCR) Not Detected (Not Detect) C. tropicalis (PCR) Not Detected (Not Detect) Coronavirus OC43 (PCR) (Not Detect) Coronavirus HKU1 (PCR) (Not Detect) Coronavirus 229E (PCR) (Not Detect) Coronavirus NL63 (PCR) (Not Detect) Enterobacteriac sp PCR Not Detected (Not Detect) E. cloacae complex PCR Not Detected (Not Detect) Enterococcus sp PCR Not Detected (Not Detect) E. coli (PCR) Not Detected (Not Detect) H. influenzae (PCR) Not Detected (Not Detect) Hep Bs Antigen (Nonreactive) Hep Bs Antibody mIU/mL Human Metapneumovir PCR (Not Detect) Influenza A (H1) PCR (Not Detect) Influ A (H1N1/09) PCR (Not Detect) Influenza A (H3) PCR (Not Detect) Influenza A Untype (PCR) (Not Detect) Influenza Type B (PCR) (Not Detect) Klebsiella oxytoca PCR Not Detected (Not Detect) Klebsiella pneumoniae Not Detected (Not Detect) List. monocytogenes PCR Not Detected (Not Detect) M.pneumoniae DNA (PCR) (Not Detect) N. meningitidis (PCR) Not Detected (Not Detect) Parainfluenza 1 (PCR) (Not Detect) Parainfluenza 2 (PCR) (Not Detect) Parainfluenza 3 (PCR) (Not Detect) Parainfluenza 4 (PCR) (Not Detect) Proteus species (PCR) Not Detected (Not Detect) RSV (PCR) (Not Detect) Entero/Rhino (PCR) (Not Detect) Serratia marcescens PCR Not Detected (Not Detect) Staphylococcus sp PCR DETECTED A (Not Detect) Staph aureus (PCR) DETECTED A (Not Detect) mecA-Methicil Res Gene Not Detected (Not Detect) Streptococcus sp PCR Not Detected (Not Detect) Group A Strep DNA Not Detected (Not Detect) Group B Strep (PCR) Not Detected (Not Detect) Strep pneumoniae (PCR) Not Detected (Not Detect) P. aeruginosa (PCR) Not Detected (Not Detect) Mariam/B-Vanco Res Genes Not Detected (Not Detect) KPC (blaKPC) Detect PCR Not Detected (Not Detect) Exam - Constitutional Vitals: Temp Pulse Resp BP Pulse Ox 98.0 F 87 17 132/73 95 05/14/17 08:45 05/14/17 08:14 05/14/17 08:45 05/14/17 10:00 05/14/17 08:14 Exam: General: Patient alert, awake, oriented 3, interactive, in no acute distress HEENT: Normocephalic, atraumatic, oral mucosa moist, uvula midline, neck supple trachea midline no palpable lymphadenopathy, no thyromegaly. Chest: Symmetric bilateral correlating with respiratory effort, effort nonlabored. Cardiac: Regular rate and rhythm, positive S1 and S2. Radial pulses 2+ bilateral , posterior tibial and dorsal pedal pulses 2+ bilateral. Respiratory: Clear to auscultation all lung [place] Abdomen: Soft, nontender, positive bowel sounds, no palpable masses appreciated on examination Extremities: Symmetric bilateral, bilateral lower extremities without erythema or edema patient moving all 4 extremities spontaneously. Skin: Healing decubitus ulcer. Neurologic: No focal deficits appreciated on examination. Face symmetric, muscle strength symmetric bilateral upper and lower extremities. - VTE Documentation of Mechanical Device: Intermittent pneumatic compression device Consult Discharge Plan - Plan Referrals: Kannan Hurley DO [Primary Care Provider] - 05/15/17 2:00 pm - Attending Attestation I examined this patient and my medical decision-making was reviewed with the Resident Physician. I agree with the documented findings, disposition and treatment plan as described except to the extent set forth below. Patient seen and examined, appears comfortable. Discussed with nursing staff and hospitalist at bedside. Patient had a rapid response secondary to vasovagal response after bowel movement. Currently he is doing very well.
[2017-05-14] MEDS: *HR* Ticagrelor 90 MG TABLET PO SCH ×2 (10:39→20:38)
[2017-05-14] MEDS: Aspirin 81 MG TAB.CHEW PO SCH (10:39)
--- NOTE | 2017-05-14 12:40 | Nephrology Progress Note ---
Date of Encounter: 05/14/17 Time of Encounter: 12:38 - Assessment and Plan (1) NANCY (acute kidney injury) Current Visit: Yes Status: Acute Patient had permacath placed on sunday. Patient to receive HD today. hgb continues to drop, today is 8.2, will further workup anemia. progressively worsening BUN is suggestive of possible GI bleed, May need GI consult. Will add on EPO to HD. - renal diet - avoid nephrotoxins - renal dosing - Iron profile, folate, b12, fecal occult - ordered (2) Abdominal compartment syndrome Current Visit: Yes Status: Resolved on admission patient had a very distended abdomen, has since resolved. Qualifiers: Compartment syndrome type: non-traumatic Qualified Code(s): M79.A3 - Nontraumatic compartment syndrome of abdomen (3) Hyponatremia Current Visit: Yes Status: Acute has remained stable Na 133-134. (4) Methicillin susceptible Staphylococcus aureus pneumonia Current Visit: Yes Status: Acute as per medicine team Qualifiers: Laterality: bilateral Lung location: unspecified part of lung Qualified Code(s): J15.211 - Pneumonia due to Methicillin susceptible Staphylococcus aureus (5) Thrombocytopenia Current Visit: Yes Status: Acute per medicine team. (6) Septic shock Current Visit: Yes Status: Resolved Antibiotics per medicine team Subjective Principal diagnosis: Sepsis/Septic Shock Interval history: patient seen and examined. patient Denies vomiting or diarrhea, but does admit to intermittent nausea that is improving. Patient states he continues to feel nauseous today. Patient denies fever, racing heart, or diaphoresis. Objective - Vital Signs Vital signs: Vital Signs Temp Pulse Resp BP Pulse Ox 05/14/17 11:00 109/70 05/14/17 10:45 123/60 05/14/17 10:30 128/88 05/14/17 10:15 126/84 05/14/17 10:00 132/73 05/14/17 09:45 140/77 05/14/17 09:30 137/78 05/14/17 09:15 142/79 05/14/17 09:00 139/80 05/14/17 08:45 98.0 F 17 138/79 05/14/17 08:14 98.0 F 87 17 138/79 95 05/14/17 06:10 97.8 F 90 16 125/71 95 05/13/17 23:46 98.8 F 75 18 138/80 95 05/13/17 19:26 98.7 F 78 16 116/63 95 05/13/17 15:30 98.4 F 67 21 126/76 96 Intake and Output 05/13/17 05/14/17 05/14/17 23:59 07:59 15:59 Intake Total 0 / 0 660 / 660 Balance 0 / 0 660 / 660 Intake: Oral 0 / 0 360 / 360 Intake, Rinseback and Flushes 300 / 300 Other: Percent of Meal Consumed 5% 100% Weight 82.9 kg Blood Glucose* 108 99 Hemodialysis Net Fluid Removed 2064 (mL) Patient Weight 05/14/17 23:59 Weight 82.9 kg - General Appearance General appearance: Present: well-developed, well-nourished Neck: Present: supple Cardiology: Present: no murmurs, no rub, no gallops, no edema, regular rate, regular rhythm, normal S1, normal S2 Dialysis Vascular Access: Venous Catheter Gastrointestinal: Present: no tenderness Psychiatric: Present: mood/affect appropriate, cooperative - Lab 05/14/17 04:15 05/14/17 04:15 Most recent lab results ABG pH 7.46 pH Units (7.32-7.45) H 05/01/17 04:55 ABG pCO2 37 mmHg (35-45) 05/01/17 04:55 ABG pO2 60 mmHg (85-104) L 05/01/17 04:55 ABG HCO3 26 mEq/L (21-27) 05/01/17 04:55 ABG O2 Saturation 92 % (95-98) L 05/01/17 04:55 Calcium 8.9 mg/dL (8.6-10.3) 05/14/17 04:15 Phosphorus 3.0 mg/dL (2.7-4.5) 04/27/17 03:49 Magnesium 2.1 mg/dL (1.6-2.6) 04/28/17 03:15 - VTE Documentation of Mechanical Device: Intermittent pneumatic compression device Consult Discharge Plan - Plan Referrals: Kannan Hurley DO [Primary Care Provider] - 05/15/17 2:00 pm
[2017-05-14 14:01] LABS: Troponin I 0.06 ng/mL (< 0.04)
[2017-05-14 14:05] LABS: Basophils % 0.4 %; Eosinophils # 0.3 K/mcL (0.0-0.6); Eosinophils % 4.5 %; Hematocrit 31.9 % (37.5-50.1); Immature Granulocytes % 0.5 % (0-4); Lymphocytes # 0.7 K/mcL (0.6-4.6); Lymphocytes % 9.2 %; Mean Corpuscular HGB Conc 33.2 g/dL (31.6-35.5); Mean Corpuscular Hemoglobin 27.8 pg (28.0-33.3); Mean Corpuscular Volume 83.7 fL (83.0-100.0); Mean Platelet Volume 9.1 fL (9.4-12.4); Monocytes # 0.5 K/mcL (0.0-1.3); Monocytes % 6.1 %; Platelet Count 343 K/mcL (140-400); Red Blood Count 3.81 M/mcL (4.19-5.50); Red Cell Distribution Width 12.8 % (11.5-14.5); Segmented Neutrophils % 79.3 %
[2017-05-14 14:10] LABS: Hemoglobin 10.6 g/dL (12.9-16.9)
[2017-05-14] MEDS ORDERED: *HR* Heparin 5,000 UNIT/ML VIAL IVP ONE (14:24)
[2017-05-14] MEDS ORDERED: Heparin 25,000 UNIT/500 ML D5W 25,000 UNIT/500 ML BAG IVC SCH (14:30)
--- NOTE | 2017-05-14 14:38 | Internal Med Progress Note ---
Date of Encounter: 05/14/17 Time of Encounter: 14:20 - Subjective Interval history: Interval changes: 05/09/2017: Pt had HD today Feeling good today Breathing comfortably Spoke to ID about LYDIA (reconsult Cardiology tomorrow) 05/10/2017: Cardiology consulted for LYDIA INR still too high for Permacath placement Continue to allow INR to drift downward unless urgency to place cath. (Consider [facility]FP if it's urgent to place the catheter) 05/11/2017: HD today Permacath to be placed (INR still 1.5) Still NPO for procedure No new complaints LYDIA done yesterday (appreciate Cardiology assistance) No valvular vegetations noted 05/12/2017 No new complaints Essntially ready to be discharged medically Checking to see if HD chair time scheduled in [place], [place] He's precertified at the rehab 05/13/2017 No new changes Ready for discharge HD tomorrow then d/c MSSA bacteremia with sepsis ID following ID believes bacteremia may have started from infection at wrist TTE done but no mention of vegetations. CTA findings concerning for possible septic emboli. LYDIA did not show valvular vegetations Nafcillin d/c'd due to worsening thrombocytopenia Now on Cefazolin 1000mg Q24hrs -treatment duration 4 weeks from negative blood culture 04/22/17 (Anticipated end date 05/21/17). From ID note: (culture reports) Sputum culture 04/27 (+) Staphylococcus aureus Blood culture peripheral 04/27 (-) no growth Sputum culture 04/24 (+) light colonies staph aureus Blood culture peripheral 04/22 (-) no growth Blood culture peripheral 04/20 (+) MSSA Wound culture Lt wrist 04/20 (+) MSSA Anaerobic culture Lt wrist 04/20 (-) no anaerobes were recovered (2) MRSA pneumonia Current Visit: Yes Status: Acute MSSA positive sputum cultures on 04/24/2017, 05/07/2017 Chest CTA demonstrated multifocal nodular consolidations. Clinically improved Abx as noted above (3) NSTEMI (non-ST elevated myocardial infarction) Patient has recent PCI Aspirin and Brilinta restarted No chest pain (4) Wrist infection Left wrist wound and skin infection which grew MSSA Abx as noted above (5) Thrombocytopenia Improving Dual antiplatelet agents restarted (6) NANCY (acute kidney injury) Permacath to be placed today Temp fem cath M-W-F HD Checking on HD arrangements in [place] (near Rehab ctr and home) - Constitutional Vitals: Temp Pulse Resp BP Pulse Ox 97.7 F 87 20 118/64 95 05/14/17 12:15 05/14/17 08:14 05/14/17 12:15 05/14/17 12:20 05/14/17 08:14 General appearance: Present: cooperative, A&O X 3, pleasant, no acute distress, answers questions appropriately Internal Medicine: Result - Labs CBC & Chem 7: 05/14/17 13:13 05/14/17 04:15 Labs: Short CBC 05/14/17 05/14/17 Range/Units 04:15 13:13 WBC 4.7 7.5 D (4.3-11.1) K/mcL Hgb 8.2 L 10.6 L D (12.9-16.9) g/dL Hct 24.7 L 31.9 L (37.5-50.1) % Plt Count 220 343 D (140-400) K/mcL Neutrophils # 3.3 6.0 (1.6-8.9) K/mcL BMP 05/14/17 04:15 Sodium 132 L Potassium 4.7 Chloride 94 L Carbon Dioxide 20 L BUN 111 H Creatinine 10.94 H Glucose 90 Calcium 8.9 Cardiac Enzymes 05/14/17 Range/Units 13:13 Troponin I 0.06 H* (< 0.04) ng/mL - ABG Interpretation ABG results: ABG ABG pH 7.46 pH Units (7.32-7.45) H 05/01/17 04:55 ABG pCO2 37 mmHg (35-45) 05/01/17 04:55 ABG pO2 60 mmHg (85-104) L 05/01/17 04:55 ABG O2 Saturation 92 % (95-98) L 05/01/17 04:55 PT/INR, D-dimer PT 15.9 Seconds (9.4-12.1) H 05/11/17 03:45 D-Dimer 7347 ng/mLFEU (0-500) H 05/04/17 13:30 - VTE Documentation of Mechanical Device: Intermittent pneumatic compression device Consult Discharge Plan - Plan Referrals: Kannan Hurley DO [Primary Care Provider] - 05/15/17 2:00 pm
[2017-05-14 15:03] LABS: Calcium 9.1 mg/dL (8.6-10.3); Potassium 3.9 mEq/L (3.5-5.1)
[2017-05-14] MEDS: amLODIPine 5 MG TABLET PO SCH (18:01)
[2017-05-14] MEDS: ceFAZolin 1,000 MG in Water for inj. (sterile) 20 ML 10 ML IVP SCH (18:01)
[2017-05-14] MEDS: Isosorbide MONOnitrate (24 HR) 30 MG TAB.ER.24H PO SCH (18:02)
[2017-05-15] MEDS: Insulin LISPRO 300 UNITS/3 ML VIAL SQ SCH ×3 (00:16→12:21)
--- NOTE | 2017-05-15 02:05 | Discharge Summary ---
- NOTES TO OUTPATIENT PROVIDER Notes to Outpatient Provider: He will continue HD (-W-) in [place], [place] as arranged by Nephrology. He will need to f/u will cardiolgy and remain on dual anti-Platelet agents. Continue taking Cefazolin 1gram q24 hrs through 05/21/17 and f/u with ID Orders not resulted at time of discharge: Pending orders 04/21/17 10:30 Ionized Calcium,venous blood DAILY 04/28/17 13:35 Ionized Calcium,arterial blood Urgent 04/29/17 05:15 Ionized Calcium,arterial blood Stat 04/29/17 20:04 Ionized Calcium,arterial blood Stat 05/14/17 12:38 Fecal Hemoccult [Occult Blood,Stool] [BF] Routine 05/14/17 14:26 Activated Partial Thrombo Time [COAG] Routine Complete Blood Count w/o Diff [HEME] Routine Prothrombin Time INR [COAG] Routine 05/15/17 04:00 BMP [Basic Metabolic Panel] AM 0400 Complete Blood Count [HEME] AM 0400 Troponin I AM 0400 05/16/17 04:00 Folate Routine Vitamin B12 Routine Date of Encounter: 05/14/17 Time of Encounter: 14:20 - Discharge Diagnosis (1) NSTEMI (non-ST elevated myocardial infarction) Priority: Primary Status: Acute Code(s): I21.4 - Non-ST elevation (NSTEMI) myocardial infarction (2) Staphylococcus aureus bacteremia with sepsis Priority: Primary Status: Acute Code(s): A41.01 - Sepsis due to Methicillin susceptible Staphylococcus aureus (3) Methicillin susceptible Staphylococcus aureus pneumonia Priority: Primary Status: Acute Qualifiers: Laterality: bilateral Lung location: unspecified part of lung Qualified Code(s): J15.211 - Pneumonia due to Methicillin susceptible Staphylococcus aureus (4) NANCY (acute kidney injury) Priority: Primary Status: Acute Comments: Requiring Hemodialysis Code(s): N17.9 - Acute kidney failure, unspecified (5) Thrombocytopenia Priority: Secondary Status: Resolved Comments: Associated with sepsis Code(s): D69.6 - Thrombocytopenia, unspecified Hospital course: 62 yr old man who presented with NSTEMI and had cardiac cath via wrist and believed to have subsequent MSSA bacteremiaand PNA. Cath site also had MSSA positive wound cultures. His LYDIA was negative for valvular vegatations. He developed severe thrombocytopenia from sepsis and Nafcillin made it worse so Nafcillin was d/c'd and he was treated with Cafazolin 1gram q24 hrs and will need to stay on it through 05/21/17. He suffered a severe NANCY and is now hopefully "temporarily" hemodialysis-dependent. He had a permacath placed and needs to dialyse on . He's been accepted to a rehab center in [place], [place] and will dialyse there. e was ready to be discharged to day when he had a rapid response due a a vasovagal event. He's being kept over night for observation and should be able to leave in the morning. A troponin was checked during the rapid response and was mildly elevated despite no chest pain. He is on Brillinta sn aspirin and recently had severe thrombocytopenia so no Heparin drip was started. He will be kept overnight and troponins trended. If his troponins would increase a Heparin drip should be started and cardiology consulted. At this time he is asymptomatic and stable. Before discharge an addendum needs to be added to this d/c summary detailing his overnight observation and noting upcoming serial troponins. Also his final med reconciliation will need completed and reflect any changes if necessary associated with his rapid response this afternoon. Discharge diagnoses: MSSA bacteremia with sepsis ID following ID believes bacteremia may have started from infection at wrist TTE done but no mention of vegetations. CTA findings concerning for possible septic emboli. LYDIA did not show valvular vegetations Nafcillin d/c'd due to worsening thrombocytopenia Now on Cefazolin 1000mg Q24hrs -treatment duration 4 weeks from negative blood culture 04/22/17 (Anticipated end date 05/21/17). From ID note: (culture reports) Sputum culture 04/27 (+) Staphylococcus aureus Blood culture peripheral 04/27 (-) no growth Sputum culture 04/24 (+) light colonies staph aureus Blood culture peripheral 04/22 (-) no growth Blood culture peripheral 04/20 (+) MSSA Wound culture Lt wrist 04/20 (+) MSSA Anaerobic culture Lt wrist 04/20 (-) no anaerobes were recovered (2) MRSA pneumonia Current Visit: Yes Status: Acute MSSA positive sputum cultures on 04/24/2017, 05/07/2017 Chest CTA demonstrated multifocal nodular consolidations. Clinically improved Abx as noted above (3) NSTEMI (non-ST elevated myocardial infarction) Patient has recent PCI Aspirin and Brilinta restarted No chest pain (4) MSSA wrist infection Wrist wound and skin infection which grew MSSA Abx as noted above (5) Thrombocytopenia Improving Dual antiplatelet agents restarted (6) NANCY (acute kidney injury) Permacath to be placed today Temp fem cath M-W-F HD Checking on HD arrangements in [place] (near Rehab ctr and home) - Time Spent with Patient Total time spent providing and/or coordinating discharge services: - Discharge Medications Home Medications: Amlodipine Besylate 10 mg PO DAILY 04/15/17 [History] Citalopram [CeleXA] 20 mg PO DAILY 04/15/17 [History] Losartan Potassium [Cozaar] 50 mg PO DAILY 04/15/17 [History] Multivitamin [One Daily Essential] 1 each PO DAILY 04/15/17 [History] glipiZIDE [Glipizide] 10 mg PO DAILY 04/15/17 [History] metFORMIN [Glucophage] 500 mg PO BIDWM 04/15/17 [History] Aspirin 81 mg PO DAILY #30 tab.chew 04/17/17 [Rx] Carvedilol [Coreg] 12.5 mg PO BIDWM #120 tablet 04/17/17 [Rx] Nitroglycerin 0.4 mg SL Q5MIN #9 tab.subl 04/17/17 [Rx] Ticagrelor [Brilinta] 90 mg PO BID #60 tablet 04/17/17 [Rx] Atorvastatin Calcium [Lipitor] 20 mg PO HS 04/19/17 [History] Allergies/Adverse Reactions: 3 Allergy/AdvReac Type Severity Reaction Status Date / Time cefepime Allergy Mild Hives Verified 04/22/17 04:34 Date of admission: 04/20/17 03:15 Primary care physician: Kannan Hurley, Consults: 04/20/17 03:20 Consult to Cardiology [CONS] Routine Comment: Consulting Provider: Card[facility] [place] Reason for Consult: Worseing SOB in patient who has PCI 72 hours back: ER spoke with Dr Frederick Call Completed: No 04/20/17 13:50 Consult to Surgery [CONS] Stat Consulting Provider: [facility] Reason for Consult: Acute abdomen Time Notified: 13:51 Call Completed: Yes 04/21/17 05:55 Consult to Nephrology [CONS] Routine Consulting Provider: Kidney Steph/SHEA/ALAN/FRIEDA Reason for Consult: Acute Renal failure Call Completed: Yes 04/21/17 08:48 consult to insole department worker [Consult to Nutrition] [CONS] Routine Comment: Consulting Provider: NUTRITION Reason for Dietary Consult: Tube Feed Start & Manage 05/01/17 09:47 Consult to Occupational Therapy [CONS] Routine Comment: Evaluate, develop and implement POC Reason for Consult: weakness, s/p extubation Does patient have active BEDREST order?: No Is patient medically & hemodynamically stable?: Yes Patient assessed for mobility or mobilized this visit?: No Consult to Physical Therapy [CONS] Routine Comment: Evaluate, develop and implement POC Reason for Consult: weakness, s/p extubation Does patient have active BEDREST order?: No Is patient medically & hemodynamically stable?: Yes Patient assessed for mobility or mobilized this visit?: No 05/01/17 12:50 Consult to Interventional Radiology [CONS] Stat Consulting Provider: Radiology Interventional Cols Reason for Consult: placement of R IJ HD catheter Time Notified: 12:51 Call Completed: Yes 05/03/17 08:00 Consult to Dialysis [CONS] ONCE 05/03/17 08:17 Consult to Cardiology [CONS] Routine Comment: Consulting Provider: Cinthia Choi Reason for Consult: s/p stenting, thrombocytopenia Call Completed: Yes Consult to Oncology Hematology [CONS] Routine Consulting Provider: Nancy Bettencourt Reason for Consult: thrombocytopenia Call Completed: Yes 05/03/17 09:38 Consult to Interventional Radiology [CONS] Stat Consulting Provider: Radiology Interventional Cols Reason for Consult: guidewire exchange left femoral temp dialysis catheter Call Completed: Yes 05/05/17 07:45 Consult to Dialysis [CONS] ONCE 05/07/17 07:45 Consult to Dialysis [CONS] ONCE 05/09/17 07:00 Consult to Dialysis [CONS] ONCE 05/09/17 11:10 Consult to Interventional Radiology [CONS] Routine Consulting Provider: Radiology Interventional Cols Reason for Consult: Permacath placement Call Completed: Yes 05/10/17 09:11 Consult to Log Loader [CONS] Routine Reason for SW Consult: Dialysis unit arrangements. Please help arrange a dialysis chair time and location. He and his requested [facility] in [place], [place]. 05/11/17 07:15 Consult to Dialysis [CONS] ONCE 05/14/17 07:30 Consult to Dialysis [CONS] ONCE - Constitutional Vitals: Temp Pulse Resp BP Pulse Ox 99.5 F 83 17 98/65 95 05/15/17 00:31 05/15/17 00:31 05/15/17 00:31 05/15/17 00:31 05/15/17 00:31 General appearance: Present: cooperative, A&O X 3, pleasant, no acute distress, answers questions appropriately - Head Head exam: Present: atraumatic, normocephalic - Eye Eye exam: Present: PERRL, conjuntiva pink, sclera anicteric Pupils: Present: PERRL - Neck Neck exam general surgery: Present: supple, trachea midline. Absent: lymphadenopathy - Respiratory Respiratory exam: Present: CTAB. Absent: accessory muscle use, rales, rhonchi, wheezes - Cardiovascular Cardiovascular exam: Present: RRR, +S1, +S2. Absent: diastolic murmur, gallop, rubs, systolic murmur - GI/Abdominal GI/Abdominal exam: Present: normal bowel sounds, soft, no peritoneal signs. Absent: distended, tenderness - Extremities Exam Extremities exam: Present: full ROM, warm. Absent: calf tenderness, cyanotic, joint swelling, pedal edema - Neurological Exam Neurological exam: Present: CN II-XII intact, oriented X3, no focal deficits. Absent: pronater drift, facial droop, speech deficit - Psychiatric Psychiatric exam: Present: normal affect, normal mood - Skin Skin exam: Present: dry, intact - Patient Status Disposition: Transfer Inpatient Rehab Fac Condition: Fair - Discharge Instructions Follow Up With: Kannan Hurley DO [Primary Care Provider] - 05/15/17 2:00 pm - VTE Documentation of Mechanical Device: Intermittent pneumatic compression device
[2017-05-15 03:54] LABS: Basophils % 0.2 %; Eosinophils # 0.3 K/mcL (0.0-0.6); Eosinophils % 4.9 %; Hematocrit 26.4 % (37.5-50.1); Immature Granulocytes % 0.6 % (0-4); Lymphocytes # 0.7 K/mcL (0.6-4.6); Lymphocytes % 13.3 %; Mean Corpuscular HGB Conc 33.3 g/dL (31.6-35.5); Mean Corpuscular Hemoglobin 27.9 pg (28.0-33.3); Mean Corpuscular Volume 83.8 fL (83.0-100.0); Mean Platelet Volume 9.2 fL (9.4-12.4); Monocytes # 0.6 K/mcL (0.0-1.3); Monocytes % 11.6 %; Neutrophils # 3.7 K/mcL (1.6-8.9); Platelet Count 225 K/mcL (140-400); Red Blood Count 3.15 M/mcL (4.19-5.50); Segmented Neutrophils % 69.4 %
[2017-05-15 03:57] LABS: Hemoglobin 8.8 g/dL (12.9-16.9)
[2017-05-15 04:12] LABS: Calcium 8.8 mg/dL (8.6-10.3); Potassium 4.3 mEq/L (3.5-5.1)
[2017-05-15 04:38] LABS: Folate 13.3 ng/mL (3.0-16.0)
[2017-05-15] MEDS: Aspirin 81 MG TAB.CHEW PO SCH (08:05)
[2017-05-15] MEDS: Isosorbide MONOnitrate (24 HR) 30 MG TAB.ER.24H PO SCH (08:05)
[2017-05-15] MEDS: amLODIPine 5 MG TABLET PO SCH (08:05)
[2017-05-15] MEDS: *HR* Ticagrelor 90 MG TABLET PO SCH (08:06)
--- NOTE | 2017-05-15 08:45 | Infectious Disease Progress No ---
Date of Encounter: 05/15/17 Time of Encounter: 08:44 - Assessment and Plan (1) Staphylococcus aureus bacteremia with sepsis Current Visit: Yes Status: Acute MSSA bacteremia may be secondary to left wrist infection versus MSSA pneumonia. All cultures grew same bacteria with similar sensitivities. - Patient currently on day 13 of cefazolin 1000 mg daily - Blood cultures no growth since 04/22/2017 - Vitals are stable Microbiology: Sputum culture 04/27 (+) Staphylococcus aureus Blood culture peripheral 04/27 (-) no growth Sputum culture 04/24 (+) light colonies staph aureus Blood culture peripheral 04/22 (-) no growth Blood culture peripheral 04/20 (+) MSSA Wound culture Lt wrist 04/20 (+) MSSA Anaerobic culture Lt wrist 04/20 (-) no anaerobes were recovered - Echocardiogram demonstrated LVEF 45-50%, mild global left ventricular systolic dysfunction, normal left ventricular atrial size, normal right atrial size, poorly visualized. No comment on valvular structure or negative for endocarditis. - LYDIA performed 05/10- No findings of vegetation 05/14 : No acute changes. Patient continues to require dialysis, no new symptoms. Continue current antibiotic coverage. 05/15: Patient remains stable. No acute changes. Plans for dialysis, completion of IV antibiotics in the outpatient setting. Plan: Antibiotics: Cefazolin 1000mg Q24hrs -treatment duration 4 weeks from negative blood culture 04/22/17 (Anticipated end date 05/21/17). (2) Methicillin susceptible Staphylococcus aureus pneumonia Current Visit: Yes Status: Acute MSSA positive sputum cultures on 04/24/2017, 05/07/2017 Risk Factors: MSSA-positive bacteremia and left wrist wound; possibly metastatic seeding from bacteremia. Patient also hospitalized and underwent cardiac catheterization with stent placement 3 days prior to presentation. past imaging: - Chest x-ray demonstrates diffuse patchy infiltrates concerning for pneumonia - Chest CTA demonstrated multifocal nodular consolidations noted throughout both lung [place] which were concerning for pneumonia with small bilateral pleural effusions. 05/15: Clinically stable, patient denies any subjective fever, diaphoresis or chills. - Continue ceftezole 1000 mg IV every 24 hours for total treatment duration 4 weeks. Qualifiers: Laterality: bilateral Lung location: unspecified part of lung Qualified Code(s): J15.211 - Pneumonia due to Methicillin susceptible Staphylococcus aureus (3) Wound infection Current Visit: Yes Status: Acute Left wrist wound and skin infection which grew MSSA susceptible to current therapy. - healed. (4) Thrombocytopenia Current Visit: Yes Status: Resolved Improving. - Management per primary team. Platelet count 220 today. (5) Decubitus ulcer of coccyx, stage 2 Current Visit: Yes Status: Acute Stable Decubitus coccyx ulcer - Continue turning while in bed - promote oral protein in diet - Continue RN protocol for treatment (6) Anemia Current Visit: Yes Status: Acute Normocytic anemia - BUN elevated - Patient denies noticeable melena or hematochezia - Consider GI loss. Qualifiers: Anemia type: unspecified type Qualified Code(s): D64.9 - Anemia, unspecified - Subjective Interval history: Mr. Jarvis has been seen and evaluated. Denies any fevers, chills, diaphoresis, chest pain, chest pressure, palpitations, shortness of breath, nausea vomiting diarrhea constipation. He feels well today and says he is looking forward to discharge. He has a dialysis chair awaiting him and will be going to rehab which he sees is beneficial. He plans to complete the duration of his antibiotics and denies any noticeable side effects. Infect Dis PN-Objective Data - Labs CBC & Chem 7: 05/15/17 03:20 05/15/17 03:20 Labs: Laboratory Results - last 24 hr 05/14/17 05/14/17 05/14/17 04:15 08:34 12:02 WBC RBC Hgb Hct MCV MCH MCHC RDW Plt Count MPV Immature Gran % Seg Neutrophils % Lymphocytes % Monocytes % Eosinophils % Basophils % Neutrophils # Lymphocytes # Monocytes # Eosinophils # Basophils # Sodium 132 L Potassium 4.7 Chloride 94 L Carbon Dioxide 20 L BUN 111 H Creatinine 10.94 H Est GFR ( Amer) 6 L Est GFR (Non-Af Amer) 5 L BUN/Creatinine Ratio 10 Glucose 90 POC Glucose 172 H 99 H Calculated Osmolality 309 H Lactic Acid Calcium 8.9 Iron 18 L % Saturation 8 L Transferrin 169 L Troponin I B-Natriuretic Peptide Vitamin B12 Folate 05/14/17 05/14/17 05/14/17 13:01 13:13 13:13 WBC 7.5 D RBC 3.81 L Hgb 10.6 L D Hct 31.9 L MCV 83.7 MCH 27.8 L MCHC 33.2 RDW 12.8 Plt Count 343 D MPV 9.1 L Immature Gran % 0.5 Seg Neutrophils % 79.3 Lymphocytes % 9.2 Monocytes % 6.1 Eosinophils % 4.5 Basophils % 0.4 Neutrophils # 6.0 Lymphocytes # 0.7 Monocytes # 0.5 Eosinophils # 0.3 Basophils # 0.0 Sodium Potassium Chloride Carbon Dioxide BUN Creatinine Est GFR ( Amer) Est GFR (Non-Af Amer) BUN/Creatinine Ratio Glucose POC Glucose 130 H Calculated Osmolality Lactic Acid Calcium Iron % Saturation Transferrin Troponin I B-Natriuretic Peptide 137 H Vitamin B12 Folate 05/14/17 05/14/17 05/14/17 13:13 13:18 15:47 WBC RBC Hgb Hct MCV MCH MCHC RDW Plt Count MPV Immature Gran % Seg Neutrophils % Lymphocytes % Monocytes % Eosinophils % Basophils % Neutrophils # Lymphocytes # Monocytes # Eosinophils # Basophils # Sodium 136 Potassium 3.9 Chloride 91 L Carbon Dioxide 26 BUN 39 H Creatinine 4.76 H Est GFR ( Amer) 15 L Est GFR (Non-Af Amer) 13 L BUN/Creatinine Ratio 8 Glucose 139 H POC Glucose 150 H Calculated Osmolality 294 Lactic Acid 1.8 Calcium 9.1 Iron % Saturation Transferrin Troponin I 0.06 H* B-Natriuretic Peptide Vitamin B12 Folate 05/14/17 05/15/17 05/15/17 20:22 03:20 03:20 WBC 5.3 RBC 3.15 L Hgb 8.8 L D Hct 26.4 L MCV 83.8 MCH 27.9 L MCHC 33.3 RDW 13.0 Plt Count 225 MPV 9.2 L Immature Gran % 0.6 Seg Neutrophils % 69.4 Lymphocytes % 13.3 Monocytes % 11.6 Eosinophils % 4.9 Basophils % 0.2 Neutrophils # 3.7 Lymphocytes # 0.7 Monocytes # 0.6 Eosinophils # 0.3 Basophils # 0.0 Sodium Potassium Chloride Carbon Dioxide BUN Creatinine Est GFR ( Amer) Est GFR (Non-Af Amer) BUN/Creatinine Ratio Glucose POC Glucose Calculated Osmolality Lactic Acid Calcium Iron % Saturation Transferrin Troponin I 0.07 H* 0.07 H* B-Natriuretic Peptide Vitamin B12 Folate 05/15/17 05/15/17 03:20 03:20 WBC RBC Hgb Hct MCV MCH MCHC RDW Plt Count MPV Immature Gran % Seg Neutrophils % Lymphocytes % Monocytes % Eosinophils % Basophils % Neutrophils # Lymphocytes # Monocytes # Eosinophils # Basophils # Sodium 134 L Potassium 4.3 Chloride 91 L Carbon Dioxide 28 BUN 60 H Creatinine 7.11 H Est GFR ( Amer) 10 L Est GFR (Non-Af Amer) 8 L BUN/Creatinine Ratio 8 Glucose 125 H POC Glucose Calculated Osmolality 296 Lactic Acid Calcium 8.8 Iron % Saturation Transferrin Troponin I B-Natriuretic Peptide Vitamin B12 1098 Folate 13.3 Cultures: Cultures 04/27/17 07:17 Blood Culture - Final Peripheral Venipuncture No growth. 04/27/17 07:17 Blood Culture - Final Peripheral Venipuncture No growth. 04/27/17 13:52 Sputum Culture - Final Sputum Staphylococcus aureus 04/22/17 12:35 Blood Culture - Final Peripheral Venipuncture No growth. 04/22/17 12:35 Blood Culture - Final Peripheral Venipuncture No growth. 04/24/17 11:15 Sputum Culture - Final Sputum Staphylococcus aureus 04/20/17 10:15 Anaerobic Culture - Final Left Wrist - Abscess No anaerobes were recovered. 04/20/17 03:48 Blood Culture - Final Peripheral Venipuncture Staphylococcus aureus 04/20/17 03:48 Blood Culture - Final Peripheral Venipuncture Staphylococcus aureus 04/20/17 10:15 Wound Culture - Final Left Wrist - Abscess Staphylococcus aureus Serology 05/03/17 04/27/17 04/20/17 Range/Units 06:54 16:25 10:55 Stl C. diff Tox B Gene Negative (Negative) A. baumannii (PCR) (Not Detect) Chlamy pneumoniae PCR Not Detected (Not Detect) Adenovirus (PCR) Not Detected (Not Detect) B. pertussis DNA (PCR) Not Detected (Not Detect) B.parapertussis DNA PCR Not Detected (Not Detect) Aixa albicans (PCR) (Not Detect) C. glabrata (PCR) (Not Detect) C. krusei (PCR) (Not Detect) C. parapsilosis (PCR) (Not Detect) C. tropicalis (PCR) (Not Detect) Coronavirus OC43 (PCR) Not Detected (Not Detect) Coronavirus HKU1 (PCR) Not Detected (Not Detect) Coronavirus 229E (PCR) Not Detected (Not Detect) Coronavirus NL63 (PCR) Not Detected (Not Detect) Enterobacteriac sp PCR (Not Detect) E. cloacae complex PCR (Not Detect) Enterococcus sp PCR (Not Detect) E. coli (PCR) (Not Detect) H. influenzae (PCR) (Not Detect) Hep Bs Antigen Nonreactive (Nonreactive) Hep Bs Antibody 5.77 mIU/mL Human Metapneumovir PCR Not Detected (Not Detect) Influenza A (H1) PCR Not Detected (Not Detect) Influ A (H1N1/09) PCR Not Detected (Not Detect) Influenza A (H3) PCR Not Detected (Not Detect) Influenza A Untype (PCR) Not Detected (Not Detect) Influenza Type B (PCR) Not Detected (Not Detect) Klebsiella oxytoca PCR (Not Detect) Klebsiella pneumoniae (Not Detect) List. monocytogenes PCR (Not Detect) M.pneumoniae DNA (PCR) Not Detected (Not Detect) N. meningitidis (PCR) (Not Detect) Parainfluenza 1 (PCR) Not Detected (Not Detect) Parainfluenza 2 (PCR) Not Detected (Not Detect) Parainfluenza 3 (PCR) Not Detected (Not Detect) Parainfluenza 4 (PCR) Not Detected (Not Detect) Proteus species (PCR) (Not Detect) RSV (PCR) Not Detected (Not Detect) Entero/Rhino (PCR) Not Detected (Not Detect) Serratia marcescens PCR (Not Detect) Staphylococcus sp PCR (Not Detect) Staph aureus (PCR) (Not Detect) mecA-Methicil Res Gene (Not Detect) Streptococcus sp PCR (Not Detect) Group A Strep DNA (Not Detect) Group B Strep (PCR) (Not Detect) Strep pneumoniae (PCR) (Not Detect) P. aeruginosa (PCR) (Not Detect) Mariam/B-Vanco Res Genes (Not Detect) KPC (blaKPC) Detect PCR (Not Detect) 04/20/17 Range/Units 03:48 Stl C. diff Tox B Gene (Negative) A. baumannii (PCR) Not Detected (Not Detect) Chlamy pneumoniae PCR (Not Detect) Adenovirus (PCR) (Not Detect) B. pertussis DNA (PCR) (Not Detect) B.parapertussis DNA PCR (Not Detect) Aixa albicans (PCR) Not Detected (Not Detect) C. glabrata (PCR) Not Detected (Not Detect) C. krusei (PCR) Not Detected (Not Detect) C. parapsilosis (PCR) Not Detected (Not Detect) C. tropicalis (PCR) Not Detected (Not Detect) Coronavirus OC43 (PCR) (Not Detect) Coronavirus HKU1 (PCR) (Not Detect) Coronavirus 229E (PCR) (Not Detect) Coronavirus NL63 (PCR) (Not Detect) Enterobacteriac sp PCR Not Detected (Not Detect) E. cloacae complex PCR Not Detected (Not Detect) Enterococcus sp PCR Not Detected (Not Detect) E. coli (PCR) Not Detected (Not Detect) H. influenzae (PCR) Not Detected (Not Detect) Hep Bs Antigen (Nonreactive) Hep Bs Antibody mIU/mL Human Metapneumovir PCR (Not Detect) Influenza A (H1) PCR (Not Detect) Influ A (H1N1/09) PCR (Not Detect) Influenza A (H3) PCR (Not Detect) Influenza A Untype (PCR) (Not Detect) Influenza Type B (PCR) (Not Detect) Klebsiella oxytoca PCR Not Detected (Not Detect) Klebsiella pneumoniae Not Detected (Not Detect) List. monocytogenes PCR Not Detected (Not Detect) M.pneumoniae DNA (PCR) (Not Detect) N. meningitidis (PCR) Not Detected (Not Detect) Parainfluenza 1 (PCR) (Not Detect) Parainfluenza 2 (PCR) (Not Detect) Parainfluenza 3 (PCR) (Not Detect) Parainfluenza 4 (PCR) (Not Detect) Proteus species (PCR) Not Detected (Not Detect) RSV (PCR) (Not Detect) Entero/Rhino (PCR) (Not Detect) Serratia marcescens PCR Not Detected (Not Detect) Staphylococcus sp PCR DETECTED A (Not Detect) Staph aureus (PCR) DETECTED A (Not Detect) mecA-Methicil Res Gene Not Detected (Not Detect) Streptococcus sp PCR Not Detected (Not Detect) Group A Strep DNA Not Detected (Not Detect) Group B Strep (PCR) Not Detected (Not Detect) Strep pneumoniae (PCR) Not Detected (Not Detect) P. aeruginosa (PCR) Not Detected (Not Detect) Mariam/B-Vanco Res Genes Not Detected (Not Detect) KPC (blaKPC) Detect PCR Not Detected (Not Detect) Exam - Constitutional Vitals: Temp Pulse Resp BP Pulse Ox 97.9 F 95 16 108/66 95 05/15/17 07:50 05/15/17 07:50 05/15/17 07:50 05/15/17 07:50 05/15/17 07:50 Exam: General: Patient alert, awake, oriented 3, interactive, in no acute distress HEENT: Normocephalic, atraumatic, oral mucosa moist, uvula midline, neck supple trachea midline no palpable lymphadenopathy, no thyromegaly. Chest: Symmetric bilateral correlating with respiratory effort, effort nonlabored. Cardiac: Regular rate and rhythm, positive S1 and S2. Radial pulses 2+ bilateral , posterior tibial and dorsal pedal pulses 2+ bilateral. Respiratory: Clear to auscultation all lung [place] Abdomen: Soft, nontender, positive bowel sounds, no palpable masses appreciated on examination Extremities: Symmetric bilateral, bilateral lower extremities without erythema or edema patient moving all 4 extremities spontaneously. Skin: Healing decubitus ulcer. Neurologic: No focal deficits appreciated on examination. Face symmetric, muscle strength symmetric bilateral upper and lower extremities. - VTE Documentation of Mechanical Device: Intermittent pneumatic compression device Consult Discharge Plan - Plan Referrals: Kannan Hurley DO [Primary Care Provider] - 05/15/17 2:00 pm - Attending Attestation I examined this patient and my medical decision-making was reviewed with the Resident Physician. I agree with the documented findings, disposition and treatment plan as described except to the extent set forth below.
--- NOTE | 2017-05-15 10:03 | Nephrology Progress Note ---
Date of Encounter: 05/15/17 Time of Encounter: 09:59 - Assessment and Plan (1) NANCY (acute kidney injury) Current Visit: Yes Status: Acute Patient had permacath placed on sunday. Patient received HD yesterday, after HD hgb recovered to 10.6. This AM hgb was 8.8 and stable at this time. Patient will be followed up outpatient with Nephrology and received HD in [facility]. - renal diet - avoid nephrotoxins - renal dosing - Iron replacement given, and recommended to continue on d/c (2) Abdominal compartment syndrome Current Visit: Yes Status: Resolved on admission patient had a very distended abdomen, has since resolved. Qualifiers: Compartment syndrome type: non-traumatic Qualified Code(s): M79.A3 - Nontraumatic compartment syndrome of abdomen (3) Hyponatremia Current Visit: Yes Status: Acute has remained stable Na 133-134. (4) Methicillin susceptible Staphylococcus aureus pneumonia Current Visit: Yes Status: Acute as per medicine team Qualifiers: Laterality: bilateral Lung location: unspecified part of lung Qualified Code(s): J15.211 - Pneumonia due to Methicillin susceptible Staphylococcus aureus (5) Thrombocytopenia Current Visit: Yes Status: Resolved per medicine team. (6) Septic shock Current Visit: Yes Status: Resolved Antibiotics per medicine team Subjective Principal diagnosis: Sepsis/Septic Shock Interval history: patient seen and examined. patient Denies vomiting or diarrhea, nausea has almost resolved. Patient denies fever, racing heart, or diaphoresis. Objective - Vital Signs Vital signs: Vital Signs Temp Pulse Resp BP Pulse Ox 05/15/17 07:50 97.9 F 95 16 108/66 95 05/15/17 04:52 99.1 F 92 16 111/67 97 05/15/17 00:31 99.5 F 83 17 98/65 95 05/14/17 20:50 98.9 F 18 92 87/51 93 05/14/17 15:26 99.7 F H 85 17 111/73 93 05/14/17 13:00 74 89/56 98 05/14/17 12:20 118/64 05/14/17 12:15 97.7 F 20 105/66 05/14/17 12:00 104/63 05/14/17 11:45 103/70 05/14/17 11:30 92/59 05/14/17 11:15 109/70 03/26/18 11:00 109/70 05/14/17 10:45 123/60 05/14/17 10:30 128/88 05/14/17 10:15 126/84 05/14/17 10:00 132/73 Intake and Output 05/14/17 05/15/17 05/15/17 23:59 07:59 15:59 Intake Total 120 / 120 0 / 0 640 / 640 Output Total 250 / 250 0 / 0 Balance 120 / 120 -250 / -250 640 / 640 Intake: Oral 120 / 120 0 / 0 640 / 640 Output: Urine 250 / 250 0 / 0 Other: Meal Dinner Breakfast Percent of Meal Consumed 0% 75% Weight 83.4 kg Blood Glucose* 149 106 Patient Weight 05/15/17 23:59 Weight 83.4 kg - General Appearance General appearance: Present: well-developed, well-nourished, appears started age Neck: Present: supple Respiratory: Present: clear Cardiology: Present: no murmurs, no rub, no gallops, no edema, regular rate, regular rhythm, normal S1, normal S2 Dialysis Vascular Access: Venous Catheter Integumentary: Present: warm and dry Neurologic: Present: no focal deficit, alert and oriented x3 Psychiatric: Present: mood/affect appropriate, cooperative - Lab 05/15/17 03:20 05/15/17 03:20 Most recent lab results ABG pH 7.46 pH Units (7.32-7.45) H 05/01/17 04:55 ABG pCO2 37 mmHg (35-45) 05/01/17 04:55 ABG pO2 60 mmHg (85-104) L 05/01/17 04:55 ABG HCO3 26 mEq/L (21-27) 05/01/17 04:55 ABG O2 Saturation 92 % (95-98) L 05/01/17 04:55 Calcium 8.8 mg/dL (8.6-10.3) 05/15/17 03:20 Phosphorus 3.0 mg/dL (2.7-4.5) 04/27/17 03:49 Magnesium 2.1 mg/dL (1.6-2.6) 04/28/17 03:15 - VTE Documentation of Mechanical Device: Intermittent pneumatic compression device Consult Discharge Plan - Plan Referrals: Kannan Hurley DO [Primary Care Provider] - 05/15/17 2:00 pm
[2017-05-15 10:19] LABS: INR 1.8
[2017-05-15 10:22] LABS: Activated Partial Thrombo Time 28.6 Seconds (26.0-36.0)
[2017-05-15 12:03] VITALS: BP 106/64
--- NOTE | 2017-05-15 14:03 | Discharge Summary ---
- NOTES TO OUTPATIENT PROVIDER Notes to Outpatient Provider: Follow up with cardiology, nephrology, and infectious disease as directed. Orders not resulted at time of discharge: Pending orders 04/21/17 10:30 Ionized Calcium,venous blood DAILY 04/28/17 13:35 Ionized Calcium,arterial blood Urgent 04/29/17 05:15 Ionized Calcium,arterial blood Stat 04/29/17 20:04 Ionized Calcium,arterial blood Stat 05/14/17 12:38 Fecal Hemoccult [Occult Blood,Stool] [BF] Routine Date of Encounter: 05/15/17 Time of Encounter: 14:01 - Discharge Diagnosis (1) NSTEMI (non-ST elevated myocardial infarction) Priority: Primary Status: Acute (2) Staphylococcus aureus bacteremia with sepsis Priority: Secondary Status: Acute (3) Methicillin susceptible Staphylococcus aureus pneumonia Priority: Secondary Status: Acute Qualifiers: Laterality: bilateral Lung location: unspecified part of lung Qualified Code(s): J15.211 - Pneumonia due to Methicillin susceptible Staphylococcus aureus (4) NANCY (acute kidney injury) Priority: Secondary Status: Acute (5) Thrombocytopenia Priority: Secondary Status: Resolved Hospital course: Mr. Jarvis is a 62 year old male who presented with NSTEMI and had cardiac cath via wrist and believed to have subsequent MSSA bacteremia and PNA. Cath site also had MSSA positive wound cultures. His LYDIA was negative for valvular vegatations. He developed severe thrombocytopenia from sepsis and Nafcillin made it worse so Nafcillin was d/c'd and he was treated with Cafazolin 1gram q24 hrs and will need to stay on it through 05/21/17. He suffered a severe NANCY and is now hopefully "temporarily" hemodialysis-dependent. He had a permacath placed and needs to dialyse on . He's been accepted to a rehab center in [place], [place] and will dialyse there. He was ready to be discharged yesterday when he had a rapid response due a a vasovagal event. He was kept over night for observation, and had no further episodes. A troponin was checked during the rapid response and was mildly elevated despite no chest pain. Troponin trended up to 0.07. I spoke with cardiology today, and they stated that he is OK for discharge with outpatient follow up. He is on Brillinta and aspirin and recently had severe thrombocytopenia so no Heparin drip was started. He was accepted at [facility] for acute rehab, with [facility] . He will follow up with cardiology, nephrology, and infectious disease as directed. Patient has met maximum benefit of this hospitalization and will be discharged home in stable condition. Discharge discussed with: patient, family, nurse, social work, case management, other (Pharmacist) - Time Spent with Patient Total time spent providing and/or coordinating discharge services: Greater than 30 minutes - Discharge Medications Prescriptions: Cefazolin Sodium/Water [Cefazolin 1 G/10 ml-Water Syrg] 1 gm IV Q24H 6 Days #6 syringe Home Medications: Amlodipine Besylate 10 mg PO DAILY 04/15/17 [History] Citalopram [CeleXA] 20 mg PO DAILY 04/15/17 [History] Losartan Potassium [Cozaar] 50 mg PO DAILY 04/15/17 [History] Multivitamin [One Daily Essential] 1 each PO DAILY 04/15/17 [History] glipiZIDE [Glipizide] 10 mg PO DAILY 04/15/17 [History] metFORMIN [Glucophage] 500 mg PO BIDWM 04/15/17 [History] Aspirin 81 mg PO DAILY #30 tab.chew 04/17/17 [Rx] Carvedilol [Coreg] 12.5 mg PO BIDWM #120 tablet 04/17/17 [Rx] Nitroglycerin 0.4 mg SL Q5MIN #9 tab.subl 04/17/17 [Rx] Ticagrelor [Brilinta] 90 mg PO BID #60 tablet 04/17/17 [Rx] Atorvastatin Calcium [Lipitor] 20 mg PO HS 04/19/17 [History] Cefazolin Sodium/Water [Cefazolin 1 G/10 ml-Water Syrg] 1 gm IV Q24H 6 Days #6 syringe 05/15/17 [Rx] Epoetin Rafal [Procrit] 2,000 unit SQ 3XW vial 05/15/17 [Rx] Ferrous Sulfate 325 mg PO TIDWM tablet 05/15/17 [Rx] Allergies/Adverse Reactions: 3 Allergy/AdvReac Type Severity Reaction Status Date / Time cefepime Allergy Mild Hives Verified 04/22/17 04:34 Date of admission: 04/20/17 03:15 Primary care physician: Kannan Hurley, Consults: 04/20/17 03:20 Consult to Cardiology [CONS] Routine Comment: Consulting Provider: Cardiology Steph Reason for Consult: Worseing SOB in patient who has PCI 72 hours back: ER spoke with Dr Frederick Call Completed: No 04/20/17 13:50 Consult to Surgery [CONS] Stat Consulting Provider: Surgery Steph Surgical Reason for Consult: Acute abdomen Time Notified: 13:51 Call Completed: Yes 04/21/17 05:55 Consult to Nephrology [CONS] Routine Consulting Provider: Kidney Steph/SHEA/ALAN/FRIEDA Reason for Consult: Acute Renal failure Call Completed: Yes 04/21/17 08:48 consult to drilling machine runner [Consult to Nutrition] [CONS] Routine Comment: Consulting Provider: NUTRITION Reason for Dietary Consult: Tube Feed Start & Manage 05/01/17 09:47 Consult to Occupational Therapy [CONS] Routine Comment: Evaluate, develop and implement POC Reason for Consult: weakness, s/p extubation Does patient have active BEDREST order?: No Is patient medically & hemodynamically stable?: Yes Patient assessed for mobility or mobilized this visit?: No Consult to Physical Therapy [CONS] Routine Comment: Evaluate, develop and implement POC Reason for Consult: weakness, s/p extubation Does patient have active BEDREST order?: No Is patient medically & hemodynamically stable?: Yes Patient assessed for mobility or mobilized this visit?: No 05/01/17 12:50 Consult to Interventional Radiology [CONS] Stat Consulting Provider: Radiology Interventional Cols Reason for Consult: placement of R IJ HD catheter Time Notified: 12:51 Call Completed: Yes 05/03/17 08:00 Consult to Dialysis [CONS] ONCE 05/03/17 08:17 Consult to Cardiology [CONS] Routine Comment: Consulting Provider: Cardiology Steph Reason for Consult: s/p stenting, thrombocytopenia Call Completed: Yes Consult to Oncology Hematology [CONS] Routine Consulting Provider: Nancy Bettencourt Reason for Consult: thrombocytopenia Call Completed: Yes 05/03/17 09:38 Consult to Interventional Radiology [CONS] Stat Consulting Provider: Radiology Interventional Cols Reason for Consult: guidewire exchange left femoral temp dialysis catheter Call Completed: Yes 05/05/17 07:45 Consult to Dialysis [CONS] ONCE 05/07/17 07:45 Consult to Dialysis [CONS] ONCE 05/09/17 07:00 Consult to Dialysis [CONS] ONCE 05/09/17 11:10 Consult to Interventional Radiology [CONS] Routine Consulting Provider: Radiology Interventional Cols Reason for Consult: Permacath placement Call Completed: Yes 05/10/17 09:11 Consult to Caddy/Caddie Supervisor [CONS] Routine Reason for SW Consult: Dialysis unit arrangements. Please help arrange a dialysis chair time and location. He and his requested [facility] in [place], [place]. 05/11/17 07:15 Consult to Dialysis [CONS] ONCE 05/14/17 07:30 Consult to Dialysis [CONS] ONCE Discharging clinician: Brendan Burgos Anticipated date of discharge: 05/15/17 - Constitutional Vitals: Temp Pulse Resp BP Pulse Ox 97.9 F 70 16 106/64 96 05/15/17 12:02 05/15/17 12:02 05/15/17 12:02 05/15/17 12:02 05/15/17 12:02 General appearance: Present: cooperative, A&O X 3, pleasant, no acute distress, answers questions appropriately - Respiratory Respiratory exam: Present: CTAB. Absent: accessory muscle use, rales, rhonchi, wheezes Additional comments: Normal WOB - Cardiovascular Cardiovascular exam: Present: RRR, +S1, +S2. Absent: diastolic murmur, gallop, rubs, systolic murmur Additional comments: No BLE edema - GI/Abdominal GI/Abdominal exam: Present: normal bowel sounds, soft. Absent: distended, hepatomegaly, mass, splenomegaly, tenderness - Psychiatric Psychiatric exam: Present: normal affect, normal mood. Absent: anxious, depressed - Skin Skin exam: Present: dry, intact, warm. Absent: cyanosis, rash - Patient Status Disposition: Transfer Inpatient Rehab Fac Condition: Fair Overall status at discharge: patient is progressing back to baseline - Discharge Instructions Follow Up With: Kannan Hurley DO [Primary Care Provider] - 05/15/17 2:00 pm Additional Instructions: Follow up with cardiology, nephrology, and infectious disease as directed. - Diet and Activity Activity: as per physical therapy Diet: other - VTE Documentation of Mechanical Device: Intermittent pneumatic compression device
--- NOTE | 2017-05-15 14:20 | Physician Discharge Referral ---
ExtendedCare Referral Info Transfer To: [facility] Institutional Level of Care: Skilled - Diagnosis (1) NSTEMI (non-ST elevated myocardial infarction) Priority: Primary Status: Acute (2) Staphylococcus aureus bacteremia with sepsis Priority: Secondary Status: Acute (3) Methicillin susceptible Staphylococcus aureus pneumonia Priority: Secondary Status: Acute (4) NANCY (acute kidney injury) Priority: Secondary Status: Acute (5) Thrombocytopenia Priority: Secondary Status: Resolved Prognosis: Fair Aware of Diagnosis: Patient, Family Aware of Prognosis: Patient, Family - Transfer Medications Prescriptions: Cefazolin Sodium/Water [Cefazolin 1 G/10 ml-Water Syrg] 1 gm IV Q24H 6 Days #6 syringe Home Medications: Amlodipine Besylate 10 mg PO DAILY 04/15/17 [History] Citalopram [CeleXA] 20 mg PO DAILY 04/15/17 [History] Losartan Potassium [Cozaar] 50 mg PO DAILY 04/15/17 [History] Multivitamin [One Daily Essential] 1 each PO DAILY 04/15/17 [History] glipiZIDE [Glipizide] 10 mg PO DAILY 04/15/17 [History] metFORMIN [Glucophage] 500 mg PO BIDWM 04/15/17 [History] Aspirin 81 mg PO DAILY #30 tab.chew 04/17/17 [Rx] Carvedilol [Coreg] 12.5 mg PO BIDWM #120 tablet 04/17/17 [Rx] Nitroglycerin 0.4 mg SL Q5MIN #9 tab.subl 04/17/17 [Rx] Ticagrelor [Brilinta] 90 mg PO BID #60 tablet 04/17/17 [Rx] Atorvastatin Calcium [Lipitor] 20 mg PO HS 04/19/17 [History] Cefazolin Sodium/Water [Cefazolin 1 G/10 ml-Water Syrg] 1 gm IV Q24H 6 Days #6 syringe 05/15/17 [Rx] Epoetin Rafal [Procrit] 2,000 unit SQ 3XW vial 05/15/17 [Rx] Ferrous Sulfate 325 mg PO TIDWM tablet 05/15/17 [Rx] Allergies/Adverse Reactions: 3 Allergy/AdvReac Type Severity Reaction Status Date / Time cefepime Allergy Mild Hives Verified 04/22/17 04:34 - Respiratory Orders Smoking Cessation: Smoking cessation has been advised. For more information, call the [place] Tobacco Quit Line at 7-050-VLTK-NOW. - Rehabiliation Orders Rehab Potential: Fair Rehab Orders: Evaluation for Physical Therapy, Evaluation for Occupational Therapy - Diet Orders Renal, Cardiac CERTIFICATION: I certify that the transfer of the above named patient to an Extended Care Facility is necessary for the continuing treatment of the diagnosis listed. The above information is true and accurate reflection of patient's current condition. Confidential - Redisclosure prohibited without a patient's written consent.
--- NOTE | 2017-05-16 06:28 | Electrocardiograph Report ---
[address] [id number] Test Date: 2017-05-14 Pat Name: Umberto Jarvis Department: 112 Room: 2A71 Gender: M Privacy Manager: : [id number] Requested By: Marlo Dickens Order Number: [id number] Reading MD: Andre Guardado MD Measurements Intervals Doyle Rate: 101 P: 41 PA: 149 QRS: -6 QRSD: 98 T: 180 QT: 372 QTc: 430 Interpretive Statements SINUS TACHYCARDIA LEFT ATRIAL ENLARGEMENT Electronically Signed On 05-16-2017 6:27:12 EDT by Andre Guardado MD
== END 2017-05-15 15:22 | DRG 870 ==
LOC: EMEROO 19:18 → 3BNU 19:18 → SUATTDRO 04-20 03:15 → ICNU 04-20 04:15 → 2ANU 05-10 18:49
PROVIDERS: ADMIT Internal Medicine; ATTEND Internal Medicine
PROC: IRPERMA (2017-05-11 11:00)